=== PATIENT | male | born 1955 | race Caucasian/White ===

== ENCOUNTER 2016-06-18 11:06 | Emergency (ER) | payer OTHER ==
[~2016-06-18] VITALS: Ht 170.2 cm; Wt 95.7 kg
[~2016-06-18 11:06] MED LIST: ABL10 PO; AMLO-110 PO; ASPI81TA21 PO; CLC100X PO; CLON0.2T PO; CLON0.5T3 PO; CRG125 PO; CRS20 PO; DPKSR/500 PO; EFFSR75 PO; LACT12LO TOP; LSN20 PO; MULT-506 PO; NXM/40 PO; RANI150T2 PO; WLLXL300 PO
[2016-06-18 11:10] VITALS: BP 153/91; TEMP 37.1; Ht 170.2 cm; Wt 95.7 kg
[2016-06-18] MEDS ORDERED: SRQ100 PO (11:33)
[2016-06-18] MEDS ORDERED: CLC100 PO (11:33)
[2016-06-18] MEDS ORDERED: XYLOCAINE 1%/SOD BICARB 20 ML VIAL INFIL ONE (11:45)
--- NOTE | 2016-06-18 12:04 | DIAGNOSTIC IMAGING REPORT ---
CT HEAD WITHOUT CONTRAST (CT) CLINICAL HISTORY: Head pain status post trauma COMPARISON STUDY: No previous studies for comparison. TECHNIQUE: Axial CT of the brain is performed from the vertex to the skull base. IV contrast was not administered for this examination. CT DOSE: 1443.15 mGy.cm FINDINGS: No intra or extra-axial mass lesions are visualized. There is no CT evidence of acute cortical infarction. There is no evidence of midline shift. There is no acute hemorrhage. No calvarial fractures are visualized. There are minimal white matter hypodensities likely on a small vessel basis. There is mild ventricular prominence. There is a prominent cisterna magna. There is a slight orientation of the ventricles. One cannot exclude agenesis of the corpus callosum. There is moderate bilateral maxilla sinus mucosal thickening. There is sphenoid sinus mucosal thickening. There is ethmoid and frontal sinus mucosal thickening IMPRESSION: 1. Pansinus disease. 2. No acute intracranial findings. Electronically signed by: Abran Gordon M.D. 06/18/2016 12:02 PM Dictated Date/Time: 06/18/2016 12:00 PM
--- NOTE | 2016-06-18 12:10 | DIAGNOSTIC IMAGING REPORT ---
CT OF THE CERVICAL SPINE CLINICAL HISTORY: Neck pain status post trauma COMPARISON STUDY: No previous studies for comparison. CT DOSE: TECHNIQUE: CT scan of the cervical spine was performed from the skull base to the thoracic inlet. Images are reviewed in the axial, sagittal, and coronal planes. IV contrast was not administered for this examination. FINDINGS: There is paranasal sinus mucosal disease. There is no apical pneumothorax. The prevertebral soft tissues are normal. No fractures or traumatic subluxations are visualized. There are multilevel degenerative changes. There is minor anterior subluxation of C4 on C5 which is felt to be degenerative. There is moderate to marked disc space narrowing at the C5-6 and C6-7 levels. There are prominent anterior osteophytes. There is a partially visualized 12 mm T2 lytic focus. IMPRESSION: No evidence of acute fracture or traumatic subluxation. Electronically signed by: Abran Gordon M.D. 06/18/2016 12:09 PM Dictated Date/Time: 06/18/2016 12:06 PM
[2016-06-18 13:05] VITALS: PULSE 87; O2SAT 98
--- NOTE | 2016-06-18 13:05 | EMERGENCY ROOM VISIT NOTE ---
ED Visit Note First contact with patient: 11:22 Chief Complaint: Scalp Laceration History of Present Illness: This patient is a 60-year-old male who presents to the Emergency Department this afternoon for evaluation of their scalp laceration. Patient sustained the laceration while tripping and falling while exiting a van. They report a moderate amount of bleeding initially. They report no loss of consciousness. They deny any headache, visual disturbance, nausea, vomiting, or neck pain. They have tried nothing for the pain. Patient rates his current discomfort as an 8/10. Patient's Tetanus status is currently up-to-date. Medications: Reviewed and discussed with the patient. Allergies: Penicillins, terbinafine PMH: No pertinent past medical history. SHx: Patient is a 60-year-old male who [place]. ROS: All pertinent positive and negative review of systems are appropriately documented in the History of Present Illness. Physical Exam: VITAL SIGNS - Vital signs and nursing notes were reviewed. GENERAL - 60-year-old male appearing his stated age. Communicates well with provider and answers questions appropriately. SKIN - There is a 5.0 cm laceration noted to the LEFT parietal area of the scalp. The edges gape apart with traction. There is no active bleeding appreciated. No deep structures including vessels, musculature, or bony structures are appreciated. HEAD - Normocephalic. No Hobbs's Sign or Raccoon's Eyes. No depressed skull fractures palpable. EYES - PERRL with EOMI bilaterally. Without subconjunctival hemorrhage. Palpebral conjunctiva pink and moist with no injection. EARS - No deformities of external structures noted on gross examination bilaterally. No hemotympanum present. No tympanic perforation noted. Handle of malleus, umbo, cone of light, pars tensa/flaccid all easily visualized. NOSE - Midline and without cyanosis. No epistaxis or clear watery discharge noted. Septum midline without deviation. No septal hematoma noted. No overlying ecchymosis noted. MOUTH/OROPHARYNX - Without perioral cyanosis. Tongue midline with equal elevation of palate bilaterally. No blood noted in the oropharynx. No tonsillar hypertrophy, erythema, or exudates noted. No dental fractures noted. NECK - FROM assessed. No nuchal rigidity. No tenderness to palpation over the cervical spinous processes. No cervical paraspinal muscle tenderness noted. LUNGS - Chest wall symmetric without accessory muscle use, intercostals retractions, or central cyanosis. Normal vesicular breath sounds CTA B/L. No wheezes, rales, or rhonchi appreciated. CARDIAC - RRR with S1/S2. No murmur, rubs, or gallops appreciated. EXTREMITIES - No gross deformities noted of the extremities. +3/5 radial and dorsalis pedis pulses palpated throughout. FROM with no tremors, fasciculations , or clonus noted on PROM throughout. +5/5 strength noted in UE/LE bilaterally. NEUROLOGIC - Cranial nerves II through XII grossly intact. Sensory intact to light touch throughout. Patellar reflexes +2/4. Patient able to perform rapid alternating movements appropriately. Negative Pronator Drift. PSYCH - A&Ox3 and cooperates fully with examiner. Pt is very pleasant and interacts well with examiner. IMAGING: CT HEAD WITHOUT CONTRAST (CT) CLINICAL HISTORY: Head pain status post trauma COMPARISON STUDY: No previous studies for comparison. TECHNIQUE: Axial CT of the brain is performed from the vertex to the skull base. IV contrast was not administered for this examination. CT DOSE: 1443.15 mGy.cm FINDINGS: No intra or extra-axial mass lesions are visualized. There is no CT evidence of acute cortical infarction. There is no evidence of midline shift. There is no acute hemorrhage. No calvarial fractures are visualized. There are minimal white matter hypodensities likely on a small vessel basis. There is mild ventricular prominence. There is a prominent cisterna magna. There is a slight orientation of the ventricles. One cannot exclude agenesis of the corpus callosum. There is moderate bilateral maxilla sinus mucosal thickening. There is sphenoid sinus mucosal thickening. There is ethmoid and frontal sinus mucosal thickening IMPRESSION: 1. Pansinus disease. 2. No acute intracranial findings. CT OF THE CERVICAL SPINE CLINICAL HISTORY: Neck pain status post trauma COMPARISON STUDY: No previous studies for comparison. CT DOSE: TECHNIQUE: CT scan of the cervical spine was performed from the skull base to the thoracic inlet. Images are reviewed in the axial, sagittal, and coronal planes. IV contrast was not administered for this examination. FINDINGS: There is paranasal sinus mucosal disease. There is no apical pneumothorax. The prevertebral soft tissues are normal. No fractures or traumatic subluxations are visualized. There are multilevel degenerative changes. There is minor anterior subluxation of C4 on C5 which is felt to be degenerative. There is moderate to marked disc space narrowing at the C5-6 and C6-7 levels. There are prominent anterior osteophytes. There is a partially visualized 12 mm T2 lytic focus. IMPRESSION: No evidence of acute fracture or traumatic subluxation. ED Course: Patient was seen and evaluated by myself. CT of the head and cervical spine were obtained. Imaging results as above. Patient had no focal neurological deficits. Patient's exam is otherwise unremarkable. Patient reports no headaches , visual disturbances, nausea, vomiting, or over-lethargy. Costs and benefits of performing primary wound closure versus no repair were discussed with the patient who verbalizes understanding. Verbal consent was obtained prior to performing the procedure. 5 cc of 1% buffered lidocaine was used to anesthetize the scalp laceration. The wound was cleansed and prepped in the typical sterile fashion utilizing normal saline and Betadine. The wound was sterilely draped. Once proper anesthetization was established, the wound was further examined and demonstrated a full-thickness laceration without injury to the deep structures. The wound was copiously irrigated with normal saline and Betadine. The wound was closed using 7 marilee with the wound edges being well approximated. Patient tolerated the procedure well. No complications were met. The wound was cleansed and dressed with a Bacitracin dressing. Patient educated on worrisome symptoms for return visit to the Emergency Department. Patient discharged to home in good condition. Impression: Scalp Laceration, Fall Discharge Instructions: You have received 7 marilee on your scalp. These marilee are NOT dissolvable and WILL need to be removed by a health care provider in 10 days. You can return to the Emergency Department or contact your Primary Care Provider to have these marilee removed. Proper wound care is essential for adequate wound healing and infection prevention. You can shower and clean the wound with soap and water. Do scour over the wound, pat dry with a towel. Do not submerse the wound until the marilee have been removed. You can use an antibiotic ointment with a dressing over the wound for the next 3-4 days. After this time you may leave the wound dry and open to the air. If crust develops over the wound you can use a Q-tip to apply a 1:1 peroxide:water solution to clean the wound. Look for signs of infection of the wound including: increased pain, swelling, foul discharge, streaking, or increased temperature. If any of these are noticed you should return to the Emergency Department for further assessment and treatment. As with any laceration you may have received nerve damage to the surrounding tissues. This damage may or may not be permanent. For pain control, you can use the following [id number] medicines (if >12 yo): - Regular strength (325mg/tab) Tylenol (acetaminophen) 2 tabs every 4-6 hours as needed. Do not exceed 12 tablets in a 24 hour period. Avoid taking more than 4 grams (4000 mg) of Tylenol per day. This includes any other sources of acetaminophen you may take on a regular basis. - Regular strength (200 mg/tab) Advil (ibuprofen) 1-2 tabs every 4-6 hours as needed. Do not exceed a dose of 3200 mg per day. Return to the emergency department if your symptoms worsen despite treatment course outlined above. Problem List Medical Problems: (1) Chest pain Status: Resolved (2) Coronary artery disease Status: Chronic (3) GERD (gastroesophageal reflux disease) Status: Chronic (4) Laceration Status: Resolved (5) Myocardial infarction Status: Resolved Current/Historical Medications Scheduled Amlodipine (Norvasc), 5 MG PO DAILY Aripiprazole (Abilify), 10 MG PO QAM Aspirin Enteric Coated (Ecotrin Or Generic), 81 MG PO DAILY Bupropion HCl (Bupropion HCl Xl), 300 MG PO DAILY Carvedilol (Carvedilol), 12.5 MG PO BID Clonazepam (Klonopin), 0.25 MG PO AMHS Clonidine Hcl (Catapres), 0.2 MG PO BID Divalproex Sodium (Depakote Etended-Release), 1,500 MG PO HS Docusate Sodium (Docusate Sodium), 100 MG PO BID Esomeprazole Magnesium (Nexium), 40 MG PO QAM Lisinopril (Lisinopril), 20 MG PO DAILY Multivitamin (Multivitamin), 1 TAB PO DAILY Quetiapine Fumarate (Quetiapine Fumarate), 100 MG PO HS Ranitidine HCl (Ranitidine HCl), 150 MG PO BID Rosuvastatin Calcium (Crestor), 20 MG PO QPM Venlafaxine Hcl (Effexor Extended Rel), 75 MG PO QAM Allergies Coded Allergies: Terbinafine (Verified Allergy, Mild, 06/18/16) Penicillins (Verified Allergy, Unknown, fam hx of allergy, 06/18/16) Vital Signs Date Time Temp Pulse Resp B/P Pulse Ox O2 Delivery O2 Flow Rate FiO2 06/18/16 13:05 87 20 98 Room Air 06/18/16 11:10 37.1 85 18 153/91 96 Room Air Departure Information Impression Primary Impression: Laceration of scalp Additional Impression: Fall Dispostion Home / Self-Care Condition GOOD Referrals Tim Swenson, D.OAdriano (PCP) Patient Instructions ED Laceration Scalp Sutr Stap , [facility] Additional Instructions You have received 7 marilee on your scalp. These marilee are NOT dissolvable and WILL need to be removed by a health care provider in 10 days. You can return to the Emergency Department or contact your Primary Care Provider to have these marilee removed. Proper wound care is essential for adequate wound healing and infection prevention. You can shower and clean the wound with soap and water. Do scour over the wound, pat dry with a towel. Do not submerse the wound until the marilee have been removed. You can use an antibiotic ointment with a dressing over the wound for the next 3-4 days. After this time you may leave the wound dry and open to the air. If crust develops over the wound you can use a Q-tip to apply a 1:1 peroxide:water solution to clean the wound. Look for signs of infection of the wound including: increased pain, swelling, foul discharge, streaking, or increased temperature. If any of these are noticed you should return to the Emergency Department for further assessment and treatment. As with any laceration you may have received nerve damage to the surrounding tissues. This damage may or may not be permanent. For pain control, you can use the following [id number] medicines (if >12 yo): - Regular strength (325mg/tab) Tylenol (acetaminophen) 2 tabs every 4-6 hours as needed. Do not exceed 12 tablets in a 24 hour period. Avoid taking more than 4 grams (4000 mg) of Tylenol per day. This includes any other sources of acetaminophen you may take on a regular basis. - Regular strength (200 mg/tab) Advil (ibuprofen) 1-2 tabs every 4-6 hours as needed. Do not exceed a dose of 3200 mg per day. Return to the emergency department if your symptoms worsen despite treatment course outlined above. Problem Qualifiers Primary Impression: Laceration of scalp Encounter type: initial encounter Qualified Codes: S01.01XA - Laceration without foreign body of scalp, initial encounter Additional Impression: Fall Encounter type: initial encounter Qualified Codes: W19.XXXA - Unspecified fall, initial encounter
== END 2016-06-18 13:14 | disposition home or self-care (01) ==
LOC: C.EDB 11:07 → C.EDD 13:14
DX: S01.01XA Laceration without foreign body of scalp, initial encounter (principal); W19.XXXA Unspecified fall, initial encounter; I25.10 Atherosclerotic heart disease of native coronary artery without angina pectoris; K21.9 Gastro-esophageal reflux disease without esophagitis; I25.2 Old myocardial infarction; Z79.82 Long term (current) use of aspirin; Z79.899 Other long term (current) drug therapy; Z88.0 Allergy status to penicillin; Z88.8 Allergy status to other drugs, medicaments and biological substances

== ENCOUNTER 2016-06-27 14:17 | Emergency (ER) | payer OTHER ==
[~2016-06-27] VITALS: Ht 162.6 cm; Wt 95.8 kg
[~2016-06-27 14:17] MED LIST changes: +CLC100 PO; -CLC100X PO; -LACT12LO TOP; +SRQ100 PO
[2016-06-27 14:25] VITALS: BP 147/90; PULSE 88; TEMP 36.6; O2SAT 99; Ht 162.6 cm; Wt 95.8 kg
--- NOTE | 2016-06-27 14:48 | EMERGENCY ROOM VISIT NOTE ---
ED Visit Note First contact with patient: 14:33 CHIEF COMPLAINT: Staple removal Patient is a 60-year-old white male returns to the ED today accompanied by a snf staff for removal of marilee that were placed 9 days ago. There has been no swelling, redness, or drainage from the wound. The patient feels like the laceration is healing well. REVIEW OF SYSTEMS: Head: No headache, injury or neck pain. Skin: No rash, new lesions, or masses. General: No fever or chills, fatigue, loss of appetite , or significant recent weight gain or loss. PMH: Reviewed and unchanged from prior visit. SOCIAL HISTORY: Patient lives at home. PHYSICAL EXAM: Vital Signs: Reviewed Nurse's notes. There is a stapled wound on the left forehead with no signs of infection. There is no erythema, swelling , or tenderness. EMERGENCY DEPARTMENT COURSE: The marilee were removed without any difficulty and there was no separation of the wound edges. DIAGNOSIS: Healing laceration and staple removal DISCHARGE INSTRUCTIONS AND TREATMENT: Wash any remaining crusts off of the wound today and resume your normal activities. Problem List Medical Problems: (1) Chest pain Status: Resolved (2) Coronary artery disease Status: Chronic (3) GERD (gastroesophageal reflux disease) Status: Chronic (4) Laceration Status: Resolved (5) Myocardial infarction Status: Resolved Current/Historical Medications Scheduled Amlodipine (Norvasc), 5 MG PO DAILY Aripiprazole (Abilify), 10 MG PO QAM Aspirin Enteric Coated (Ecotrin Or Generic), 81 MG PO DAILY Bupropion HCl (Bupropion HCl Xl), 300 MG PO DAILY Carvedilol (Carvedilol), 12.5 MG PO BID Clonazepam (Klonopin), 0.25 MG PO AMHS Clonidine Hcl (Catapres), 0.2 MG PO BID Divalproex Sodium (Depakote Etended-Release), 1,500 MG PO HS Docusate Sodium (Docusate Sodium), 100 MG PO BID Esomeprazole Magnesium (Nexium), 40 MG PO QAM Lisinopril (Lisinopril), 20 MG PO DAILY Multivitamin (Multivitamin), 1 TAB PO DAILY Quetiapine Fumarate (Quetiapine Fumarate), 100 MG PO HS Ranitidine HCl (Ranitidine HCl), 150 MG PO BID Rosuvastatin Calcium (Crestor), 20 MG PO QPM Venlafaxine Hcl (Effexor Extended Rel), 75 MG PO QAM Allergies Coded Allergies: Terbinafine (Verified Allergy, Mild, 06/18/16) Penicillins (Verified Allergy, Unknown, fam hx of allergy, 06/18/16) Vital Signs Date Time Temp Pulse Resp B/P Pulse Ox O2 Delivery O2 Flow Rate FiO2 06/27/16 14:25 36.6 88 18 147/90 99 Room Air Departure Information Impression Primary Impression: Encounter for removal of marilee Referrals No Doctor, Assigned (PCP) Patient Instructions [facility]
== END 2016-06-27 14:52 | disposition home or self-care (01) ==
LOC: C.EDB 14:19 → C.EDD 14:52
DX: Z48.02 Encounter for removal of sutures (principal); I25.10 Atherosclerotic heart disease of native coronary artery without angina pectoris; K21.9 Gastro-esophageal reflux disease without esophagitis; I25.2 Old myocardial infarction; Z79.82 Long term (current) use of aspirin; Z88.0 Allergy status to penicillin

== ENCOUNTER 2016-10-14 15:14 | Emergency (ER) | payer OTHER ==
[~2016-10-14] VITALS: Ht 170.2 cm; Wt 91.0 kg
[2016-10-14 15:16] VITALS: Ht 170.2 cm; Wt 91.0 kg
[2016-10-14] MEDS ORDERED: CEFTRIAXONE SOD INJ 1 GM ADDVIAL IV STA (15:52)
[2016-10-14] MEDS ORDERED: CLINDAMYCIN HCL 150 MG CAP PO ONE (16:00)
[2016-10-14 16:24] LABS: HEMATOCRIT 38.1 % (42-52); MEAN CELL VOLUME 95.5 fL (80-100); MEAN CORPUSCULAR HEMOGLOBIN 32.1 pg (25-34); MEAN CORPUSCULAR HGB CONC 33.6 g/dl (32-36); PLATELET COUNT 142 K/uL (130-400); RED BLOOD COUNT 3.99 M/uL (4.7-6.1)
[2016-10-14 16:47] LABS: BUN/CREATININE RATIO 21.5 (10-20); CALCIUM 8.5 mg/dl (8.5-10.1); CREATININE 1.3 mg/dl (0.60-1.40); POTASSIUM 4.1 mmol/L (3.5-5.1)
[2016-10-14] MEDS ORDERED: CLIN300C2 PO (17:28)
--- NOTE | 2016-10-14 17:29 | EMERGENCY ROOM VISIT NOTE ---
History Report prepared by Kavon: Jabier Miranda Under the Supervision of: Dr. Tano Reaves D.O. First contact with patient: 15:26 Chief Complaint: KNEEPAIN Stated Complaint: KNEE SWELLING, FLUID, OFF BALANCE, CONFUSED History of Present Illness The patient is a 61 year old male who presents to the Emergency Room with complaints of worsening left knee pain starting a month ago. He rates his pain as an 8/10 in severity. The patient is accompanied by [employer] staff, which is where he resides. They report that the patient had broken his left leg a couple of years ago and has had a history of left knee swelling and pain. The staff reports that he follows up with his knee problems with his doctor and has had his knee drained multiple times in the past month. The staff states that when his knee has been drained, it has been a dark fluid. They report that he was given antibiotics for his knee swelling, but cannot remember the name of the antibiotics. The staff states that the patient's balance has been off recently causing him to fall in the tub recently and fall out of his chair today hitting his elbow. The patient reports that has been experiencing a high fever. The staff reports that they are unsure if the left knee worsened due to the tub incident since they did not witness his fall. They report that when they came on shift today, he only had a slight fever. They also state that he refuses to wrap, elevate, or ice his knee because it is uncomfortable and has been walking and putting pressure on his knee. They report that his leg has been discolored, swollen, warm, and worsening. The staff admits that the patient has an allergy to penicillin. Source of History: patient, caregiver Onset: a month ago Position: knee (left) Symptom Intensity: 8/10 Quality: other (swelling) Timing: worsening Associated Symptoms: + fevers Review of Systems See HPI for pertinent positives & negatives. A total of 10 systems reviewed and were otherwise negative. Past Medical & Surgical Medical Problems: (1) Chest pain (2) Coronary artery disease (3) GERD (gastroesophageal reflux disease) (4) Laceration (5) Myocardial infarction Family History Patient reports no known family medical history. Social History Smoking Status: Never Smoker Alcohol Use: none Drug Use: none Marital Status: single Housing Status: assisted living Occupation Status: disabled Current/Historical Medications Scheduled Amlodipine (Norvasc), 5 MG PO DAILY Aripiprazole (Abilify), 10 MG PO QAM Aspirin Enteric Coated (Ecotrin Or Generic), 81 MG PO DAILY Bupropion HCl (Bupropion HCl Xl), 300 MG PO DAILY Carvedilol (Carvedilol), 12.5 MG PO BID Clindamycin Hcl (Cleocin), 300 MG PO QID Clindamycin Hcl (Cleocin), 300 MG PO QID Clonazepam (Klonopin), 0.25 MG PO AMHS Clonidine Hcl (Catapres), 0.2 MG PO BID Divalproex Sodium (Depakote Etended-Release), 1,500 MG PO HS Docusate Sodium (Docusate Sodium), 100 MG PO BID Esomeprazole Magnesium (Nexium), 40 MG PO QAM Lisinopril (Lisinopril), 20 MG PO DAILY Multivitamin (Multivitamin), 1 TAB PO DAILY Quetiapine Fumarate (Quetiapine Fumarate), 100 MG PO HS Ranitidine HCl (Ranitidine HCl), 150 MG PO BID Rosuvastatin Calcium (Crestor), 20 MG PO QPM Venlafaxine Hcl (Effexor Extended Rel), 75 MG PO QAM Allergies Coded Allergies: Terbinafine (Verified Allergy, Mild, 10/14/16) Penicillins (Verified Allergy, Unknown, fam hx of allergy, 10/14/16) Physical Exam Vital Signs Date Time Temp Pulse Resp B/P (MAP) Pulse Ox O2 Delivery O2 Flow Rate FiO2 10/14/16 17:00 84 16 126/80 99 10/14/16 15:16 37.2 98 17 123/72 94 Room Air Physical Exam CONSTITUTIONAL/VITAL SIGNS: Reviewed / noted above. GENERAL: Non-toxic in appearance. INTEGUMENTARY: Warm, dry, and [place]. HEAD: Normocephalic. EYES: without scleral icterus or trauma. ENT/OROPHARYNX: clear and moist. LYMPHADENOPATHY/NECK: Is supple without lymphadenopathy or meningismus. RESPIRATORY: Lungs clear and equal. CARDIOVASCULAR: Regular rate and rhythm. GI/ABDOMEN: Soft and nontender. No organomegaly or pulsatile mass. No rebound or guarding. Normal bowel sounds. EXTREMITIES: Left anterior knee reveals swelling, erythema, and increased warmth. Other extremities are warm and well perfused. BACK: No CVA tenderness. NEUROLOGICAL: Intact without focal deficits. PSYCHIATRIC: normal affect. MUSCULOSKELETAL: Normally developed with good muscle tone. Medical Decision & Procedures Laboratory Results 10/14/16 16:00 10/14/16 16:00 Test 10/14/16 16:00 Red Blood Count 3.99 M/uL (4.7-6.1) Mean Corpuscular Volume 95.5 fL (80-100) Mean Corpuscular Hemoglobin 32.1 pg (25-34) Mean Corpuscular Hemoglobin Concent 33.6 g/dl (32-36) RDW Standard Deviation 46.7 fL (36.4-46.3) RDW Coefficient of Variation 13.4 % (11.5-14.5) Mean Platelet Volume 11.0 fL (7.4-10.4) Anion Gap 8.0 mmol/L (3-11) Est Creatinine Clear Calc Drug Dose 65.8 ml/min Estimated GFR () 69.2 Estimated GFR (Non- 59.7 BUN/Creatinine Ratio 21.5 (10-20) Calcium Level 8.5 mg/dl (8.5-10.1) Lyme Disease IgM Antibody NEG (NEG) Laboratory results as stated above per my review. Medications Administered Medications (Trade) Dose Ordered Sig/Kamryn Route Start Time Stop Time Status Last Admin Dose Admin Ceftriaxone Sodium (Rocephin Inj) 1 gm NOW STAT IV 10/14/16 15:52 10/14/16 15:54 DC 10/14/16 16:11 1 GM Clindamycin HCl (Cleocin Cap) 300 mg ONE ONCE PO 10/14/16 16:00 10/14/16 16:02 DC 10/14/16 16:12 300 MG ED Course 1530: Previous medical records were reviewed. The patient was evaluated in room C05. A complete history and physical examination was performed. 1552: Rocephin Injection 1 gram IV. 1600: Cleocin Cap 300 mg PO. 1743: On reevaluation, the patient is resting comfortably. I discussed the results and findings with the patient. He verbalized agreement of the treatment plan. He was discharged home. Medical Decision The differential diagnosis includes but is not limited to: etiologies such as cellulitis, abscess, MRSA infection, DVT, necrotizing fasciitis, dermatitis, drug eruption, as well as others were entertained. Medication Reconciliation: I attest that I have personally reviewed the patient' s current medication list. Blood pressure Screening: Patient was found to have normal blood pressure on screening and does not require follow-up. This is a 61-year-old male who presents to the ED with a chief complaint of left knee pain. The patient is a resident at [facility]. The patient has had problems with this knee in the past. He has had prepatellar bursitis and has required antibiotics in the past. His knee prepatellar bursa has required drainage by Dr. Flores in the past. His exam reveals diffuse erythema overlying the left knee with some swelling in the bursa is mild tenderness. Full range of motion. Mild discomfort with movement. It is increased warmth over the bursa. The patient was started on some IV antibiotics. He was given IV Rocephin and by mouth clindamycin. He is allergic to penicillin. The patient's symptoms are suggestive of a prepatellar bursitis. The bursa was not accessed due to the overlying erythema. This could be a traumatic bursitis but he has been on antibiotics for the same in the past there for the antibiotics have been initiated. The staff at the [facility] states that he spends a lot of time on his knees. CBC is unremarkable. PRP was normal. Lyme test was negative. The patient was given IV Rocephin and by mouth clindamycin. He will be discharged on clindamycin. Close follow-up with Dr. flores is recommended. Impression Primary Impression: Prepatellar bursitis Scribe Attestation The scribe's documentation has been prepared under my direction and personally reviewed by me in its entirety. I confirm that the note above accurately reflects all work, treatment, procedures, and medical decision making performed by me. Departure Information Dispostion Home / Self-Care Prescriptions Clindamycin Hcl (CLEOCIN) 300 Mg Cap 300 MG PO QID, #40 CAP Prov: Tano Reaves D.O. 10/14/16 Clindamycin Hcl (CLEOCIN) 300 Mg Cap 300 MG PO QID, #40 CAP Prov: Tano Reaves D.O. 10/14/16 Referrals Tim Swenson D.O. (PCP) Patient Instructions My [facility] Additional Instructions Take clindamycin as prescribed. Follow-up with Dr. Flores. Call tomorrow for appointment.
[2016-10-14 18:01] VITALS: BP 126/80; PULSE 84; TEMP 37.2; O2SAT 99
== END 2016-10-14 18:02 | disposition home or self-care (01) ==
LOC: C.EDB 15:16 → C.EDC 18:02
DX: M70.42 Prepatellar bursitis, left knee (principal); I25.10 Atherosclerotic heart disease of native coronary artery without angina pectoris; K21.9 Gastro-esophageal reflux disease without esophagitis; I25.2 Old myocardial infarction; Z79.82 Long term (current) use of aspirin

== ENCOUNTER 2017-02-24 01:23 | Emergency (ER) | payer OTHER ==
[~2017-02-24] VITALS: Ht 172.7 cm; Wt 99.7 kg
[~2017-02-24 01:23] MED LIST changes: +QUET-115 PO; -SRQ100 PO
[2017-02-24 01:31] VITALS: TEMP 36.8; Ht 172.7 cm; Wt 99.7 kg
[2017-02-24] MEDS ORDERED: LORAZEPAM 1 MG TAB PO STA (01:35)
[2017-02-24] MEDS ORDERED: LIDOCAINE/EPINEPH/TETRACAINE 1 EA SYR EXT STA (01:35)
[2017-02-24 03:16] VITALS: BP 183/99; PULSE 77; O2SAT 99
--- NOTE | 2017-02-24 06:20 | EMERGENCY ROOM VISIT NOTE ---
History First contact with patient: :29 Chief Complaint: FALL Stated Complaint: FALL/LACERATION History of Present Illness The patient is a 61 year old male who presents to the Emergency Room with complaints of left-sided scalp laceration that occurred about one hour ago. The patient has a history of MHMR and is currently under the care of [employer] [facility] The patient states that he got up to use the bathroom, fell, and struck his head. He did not lose consciousness. He is reportedly up-to-date on his tetanus. He does not have other complaints. He is accompanied by a caregiver. Review of Systems More than 10 systems were reviewed and otherwise negative with the exception of history of present illness. Past Medical/Surgical History Medical Problems: (1) Chest pain (2) Coronary artery disease (3) GERD (gastroesophageal reflux disease) (4) Laceration (5) Myocardial infarction Family History Patient reports no known family medical history. Social History Smoking Status: Never Smoker Alcohol Use: none Drug Use: none Marital Status: single Housing Status: assisted living Occupation Status: disabled Current/Historical Medications Scheduled Amlodipine (Norvasc), 5 MG PO DAILY Aripiprazole (Abilify), 10 MG PO QAM Aspirin Enteric Coated (Ecotrin Or Generic), 81 MG PO DAILY Bupropion HCl (Bupropion HCl Xl), 300 MG PO DAILY Carvedilol (Carvedilol), 12.5 MG PO BID Clonazepam (Klonopin), 0.25 MG PO AMHS Clonidine Hcl (Catapres), 0.2 MG PO BID Divalproex Sodium (Depakote Etended-Release), 1,500 MG PO HS Docusate Sodium (Docusate Sodium), 100 MG PO BID Esomeprazole Magnesium (Nexium), 40 MG PO QAM Lisinopril (Lisinopril), 20 MG PO DAILY Multivitamin (Multivitamin), 1 TAB PO DAILY Quetiapine Fumarate (Quetiapine Fumarate), 100 MG PO HS Ranitidine HCl (Ranitidine HCl), 150 MG PO BID Rosuvastatin Calcium (Crestor), 20 MG PO QPM Venlafaxine Hcl (Effexor Extended Rel), 75 MG PO QAM Physical Exam Vital Signs Date Time Temp Pulse Resp B/P (MAP) Pulse Ox O2 Delivery O2 Flow Rate FiO2 02/24/17 03:16 77 18 183/99 99 02/24/17 02:07 80 18 160/81 100 Room Air 02/24/17 01:31 36.8 87 18 177/85 100 Room Air Physical Exam VITALS: Vitals are noted on the nurse's note and reviewed by myself. Vital signs stable. GENERAL: Anxious appearing white male, who is in no acute distress and resting comfortably. Patient is cooperative with the examination. HEAD: There is a 5.5 cm fairly linear vertical laceration over the left side forehead into the left scalp. This does gape and will require repair. No granados sign or raccoon eyes. EARS: External ear normal. External auditory canals clear, tympanic membranes pearly amaro without erythema or effusion bilaterally. EYES: Pupils equal round and reactive to light and accommodation. Conjunctivae without injection, sclerae without icterus. Extraocular movements intact. NECK: Supple without nuchal rigidity. No lymphadenopathy. No thyromegaly. Cervical spine is nontender. HEART: Regular rate and rhythm without murmurs gallops or rubs. LUNGS: Clear to auscultation bilaterally without wheezes, rales or rhonchi. No retractions or accessory muscle use. Medical Decision & Procedures ER Provider Diagnostic Interpretation: Preliminary Findings Only See Final Report For Complete Findings CT HEAD: Comparison: None Impression: No acute intracranial hemorrhage, territorial infarct, mass, midline shift or extra-axial fluid collection Left frontal subcutaneous swelling with no underlying fracture Comment: Ventricles are enlarged, presumably due to greater than age-related atrophy No midline shift Left posterior fossa geena-cisterna magna versus arachnoid cyst. Sinuses are clear Left frontal subcutaneous swelling. No underlying calvarial fracture Medications Administered Medications (Trade) Dose Ordered Sig/Kamryn Route Start Time Stop Time Status Last Admin Dose Admin Tetracaine/ Epinephrine/ Lidocaine (L.e.t. Gel 4%/ 1:100/0.5%) 1 ea NOW STAT EXT 02/24/17 01:35 02/24/17 01:36 DC 02/24/17 01:41 1 EA Lorazepam (Ativan Tab) 1 mg NOW STAT PO 02/24/17 01:35 02/24/17 01:36 DC 02/24/17 01:41 1 MG Procedure Laceration repair. Patient elects to have their laceration repaired. Verbal consent was obtained to perform the procedure. There is an abundance of materials available for the procedure. Patient is non-allergic to latex. Using sterile technique the wound was cleaned with Betadine. The area was sterilely draped. LET gel was used to anesthetize the scalp laceration. Once the patient was anesthetized, the wound was copiously irrigated under pressure with sterile saline. The wound was explored and there were no deep structures injured such as tendons, bone, or significant blood vessels. The laceration was repaired using 2 simple interrupted 5-0 nylon sutures and 6 marilee with the wound edges being well approximated. Hemostasis was achieved. The area was cleaned with sterile saline and dressed with bacitracin ointment and bandage. Patient tolerated the procedure well without complications. Blood loss was negligible. ED Course Physical exam and history were performed. Nursing notes, EMR, and Medication List were personally reviewed. Patient appears to have fallen and suffered injury to his head as above. He appears to need stitches, and became very anxious with this. I elected to give him oral Ativan and begin using let gel for anesthesia. CT scan of the head was performed does not show significant acute findings other than the laceration. The patient was very anxious throughout his suture repair, and did not wish to have this performed. I was able to close the most inferior laceration with simple interrupted sutures before the patient became uncooperative. I was able to quickly finished the repair utilizing marilee. Overall the patient returned to his comfortable baseline after the procedure was completed. He appears well for discharge home and was given instructions as below. The chart was completed utilizing [employer] Voice Recognition Software. Grammatical errors, random word insertions, pronoun errors, and incomplete sentences are an occasional consequence of this system due to software limitations, ambient noise, and hardware issues. Any formal questions or concerns about the content, text, or information contained within the body of this dictation should be directly addressed to the provider for clarification. . Medical Decision Differential diagnosis: Etiologies such as concussion, contusion, fracture, subdural hematoma, epidural hematoma, intraparenchymal hemorrhage, as well as other traumatic pathologies were entertained. Blood Pressure Screening Blood pressure disposition: Elevated BP felt to be situational, Referred to PCP Impression Primary Impression: Fall Additional Impression: Laceration of scalp Departure Information Dispostion Home / Self-Care Condition GOOD Forms HOME CARE DOCUMENTATION FORM, IMPORTANT VISIT INFORMATION Patient Instructions [facility] Additional Instructions You were seen and evaluated today on an emergency basis only. This is not a substitute for, or an effort to provide, complete comprehensive medical care. It is not possible to recognize and treat all injuries or illnesses in a single emergency department visit. For this reason it is recommended that you followup with your primary care physician next week for ongoing care and evaluation. Keep wound clean and dry. Do not allow any crusting or dried blood to accumulate on sutures/marilee. If this occurs, use a mild soap/water on a Q-tip to clean the wound. Do not use Peroxide to clean the wound as this can delay healing Use an antibiotic ointment like Bacitracin for 3-4 days, then let wound dry. You may bathe and shower as normal, but DO NOT SOAK the wound. Suture/staple removal in about 10 days with your Family Doctor or in the ER. Return sooner for any signs of infection, increasing redness, swelling, or drainage. You are welcome to return to the emergency department anytime with new, worsening, or concerning symptoms. Problem Qualifiers
--- NOTE | 2017-02-24 06:33 | DIAGNOSTIC IMAGING REPORT ---
CT HEAD WITHOUT CONTRAST (CT) CLINICAL HISTORY: Head pain status post trauma. COMPARISON STUDY: 06/18/2016 TECHNIQUE: Axial CT of the brain is performed from the vertex to the skull base. IV contrast was not administered for this examination. A dose lowering technique was utilized adhering to the principles of ALARA. CT DOSE: 1228.53 mGy.cm FINDINGS: No intra or extra-axial mass lesions are visualized. There is no CT evidence of acute cortical infarction. There is no evidence of midline shift. There is no acute hemorrhage. No calvarial fractures are visualized. There are patchy white matter hypodensities likely on a small vessel basis. There is a prominent cisterna magna. The ventricles are somewhat prominent with a somewhat high orientation. Agenesis of the corpus callosum cannot be excluded. There is a left frontal scalp laceration. There is no evidence of acute sinusitis IMPRESSION: No acute intracranial findings Electronically signed by: Abran Gordon M.D. 02/24/2017 6:32 AM Dictated Date/Time: 02/24/2017 6:29 AM
== END 2017-02-24 03:17 | disposition home or self-care (01) ==
LOC: EDBD 01:23 → C.EDB 01:26
DX: S01.01XA Laceration without foreign body of scalp, initial encounter (principal); W19.XXXA Unspecified fall, initial encounter; Y92.129 Unspecified place in nursing home as the place of occurrence of the external cause; I25.10 Atherosclerotic heart disease of native coronary artery without angina pectoris; K21.9 Gastro-esophageal reflux disease without esophagitis; I25.2 Old myocardial infarction; Z79.82 Long term (current) use of aspirin; Z79.899 Other long term (current) drug therapy

== ENCOUNTER 2019-10-30 19:47 | Inpatient (IN) ==
[2019-10-30] MEDS ORDERED: SODIUM CHLORIDE 0.9% 1000ML 2,000 ML IV ONE (20:11)
[2019-10-30 20:20] LABS: Basophils # (auto) 0.01 K/uL (0-0.2); Basophils % (auto) 0.1 %; Eosinophils # (auto) 0.03 K/uL (0-0.5); Eosinophils % (auto) 0.2 %; Hematocrit (blood only) 38.5 % (42-52); Hemoglobin 13.8 g/dL (14.0-18.0); Immature Granulocytes # (auto) 0.11 K/uL (0.00-0.02); Immature Granulocytes % (auto) 0.7 %; Lymphocytes # (auto) 1.09 K/uL (1.2-3.4); Lymphocytes % (auto) 7.3 %; Mean Corpuscular Hgb Conc 35.8 g/dL (32-36); Mean Corpuscular Volume 94.8 fL (80-100); Mean Platelet Volume 11.1 fL (7.4-10.4); Monocytes # (auto) 1.16 K/uL (0.11-0.59); Monocytes % (auto) 7.7 %; Neutrophils # (auto) 12.63 K/uL (1.4-6.5); Platelet Count 126 K/uL (130-400); RDW Coefficient of Variation 13.7 % (11.5-14.5); RDW Standard Deviation 47.5 fL (36.4-46.3); Red Blood Count 4.06 M/uL (4.7-6.1); White Blood Count 15.03 K/uL (4.8-10.8)
[2019-10-30] MEDS ORDERED: HALOPERIDOL LACTATE 5 MG/ML 1 ML VIAL IM STA (20:20)
[2019-10-30] MEDS ORDERED: LORazepam 2 MG/ML VIAL (IM USE) IM STA (20:20)
[2019-10-30] MEDS ORDERED: cefTRIAXone SODIUM 1,000 MG/50 ML BAG IV STA (20:32)
--- NOTE | 2019-10-30 20:32 | Emergency Department Note ---
Impression & Plan Sepsis ED Provider Note NAME: GABO RDZ AGE: 64 SEX: M : 1955 ARRIVES VIA: Ambulance INFORMANT: Patient ED PROVIDER(S): Wicho Rivero DO CHIEF COMPLAINT: fever and shaking HPI:Patient is a 64-year-old male from [place] who presents the ER with a past medical history of CHF, intermittent explosive disorder, anxiety and aspiration pneumonia for a fever. His fever started earlier today. He has had intermittent diffuse shaking. Caretakers note he has had no complaints with the exception of some abdominal pain. He denies any head pain or neck pain. No sore throat or ear pain. No chest pain or shortness of breath. Carbonation Equipment Operator de nies any new cough. He does admit to belly pain but cannot localize it. No pain with urination. No open wounds or sores. History is fairly limited secondary to mentation. No exposure to anyone with known coronavirus. He was with his family yesterday and [facility]. Carbonation Equipment Operator is unsure if josé miguel feels has had any previous COVID patients. ROS: See above HPI for pertinent positives & negatives. A total of 10 systems reviewed and were otherwise negative. PAST MEDICAL HISTORY:See Below PAST SURGICAL HISTORY:See Below FAMILY HISTORY:See Below SOCIAL HISTORY:See Below HOME MEDICATIONS:See Below ALLERGIES:See Below VITALS:See Below PHYSICAL EXAMINATION: GENERAL: Sitting up in bed, alert, disheveled, yelling, hitting staff EYE EXAM: normal conjunctiva. OROPHARYNX: mucous membranes are dry NECK: supple, no nuchal rigidity, no adenopathy, non-tender LUNGS: Coarse at the bases. Normal chest wall mechanics HEART: Tacky, S1 normal and S2 normal ABDOMEN: abdomen soft, non-tender, normo-active bowel sounds, no masses, no rebound or guarding. BACK: Back is symmetrical on inspection and there is no deformity, no midline tenderness, no CVA tenderness. SKIN: no rashes and no bruising UPPER EXTREMITIES: upper extremities are grossly normal. LOWER EXTREMITIES: No pitting edema. NEURO EXAM: Awake alert not following commands yelling and intermittently hitting staff. Nonfocal. MEDICAL DECISION MAKING: Patient is a 62-year-old male who presents the ER for fevers and rigors. IV was established blood work was obtained. Patient was extremely agitated throughout part of his stay and did delay treatment. He had several of the nursing staff. Consequently he was given initially IM Haldol and Ativan. He was redosed with IV Haldol and Ativan and did become a little bit sedated. Vitals were remarkable for fever and tachycardia. Labs show leukocytosis of 15,000. No significant anemia. INR was unremarkable. BMP was unremarkable. LFTs were el evated at 140 and 150 consistent with previous. Troponin was negative. Procalcitonin was normal. UA is negative. Valproic was normal. Chest x-ray without any focal infiltrate. CT abdomen pelvis showed no acute pathology. Patient was covered with broad-spectrum antibiotics given 2 L IV fluids. Patient was on airborne precautions throughout his stay in the ER due to the fever of unknown source. Triage Nursing notes reviewed. Prior medical records reviewed Vital Signs: reviewed and remarkable for febrile and tachycardic Differential diagnosis: Differential diagnosis includes etiologies such as sepsis, UTI, pneumonia, metabolic, electrolyte abnormalities, cardiac sources, intracerebral event, toxicologic, neurological, as well as others were entertained. ER treatment provided: See below Diagnostics interpreted by me: ECG: Sinus tachycardia rate of 110 Normal axis Septal Q waves No PVCs Normal QTC Cardiac Monitoring: An order was placed for continuous cardiac monitoring. The monitor shows a rate of 118 with sinus rhythm. Laboratory studies: As stated above and show below. Imaging studies: CT abdomen pelvis shows no acute pathology per stat read. On my review I did review the bases of the lungs and did appear to be fairly consistent with previous. Portable AP upright 1 view of the chest shows no focal infiltrate or pneumothorax. Consultation(s): none ED COURSE: Procedures: none Critical Care: I have personally spent 45 minutes of critical care time in the direct management of this patient. This includes bedside care, interpretation of diagnostic studies, and testing, discussion with consultants, patient, and family members, and other required patient management activities. This 45 minutes is in excess of all separately billable procedures. Past Med/Surg History Social History Preferred Language: Kiswahili Communication Ability: Impaired Knowledge Management Consultant Required: No Beliefs That Will Affect Care: None marital status: Single Current Living Situation: Personal Care Facility Current Living Situation Comment: [facility] Feels Safe at Home: Yes Smoking Status: Never smoker Hx Alcohol Use: No Hx Substance Use: No Allergies Allergies Allergy/AdvReac Type Severity Reaction Status Date / Time terbinafine Allergy Mild Unknown Verified 10/30/19 21:11 Penicillins Allergy Unknown fam hx of Verified 10/30/19 21:11 allergy Home Meds Home Medications Medication Instructions Recorded Confirmed aspirin 81 mg PO QAM 02/01/18 10/30/19 carvedilol 12.5 mg PO BID 02/01/18 10/30/19 clonidine HCl 0.2 mg PO BID 02/01/18 10/30/19 lisinopril 20 mg PO QAM 02/01/18 10/30/19 multivitamin [Multiple Vitamins] 1 tab PO QAM 02/01/18 10/30/19 bupropion HCl 100 mg PO TID 09/21/18 10/30/19 sennosides [senna] 8.6 mg PO BID 09/21/18 10/30/19 clonazepam 0.25 mg PO BID 09/30/18 10/30/19 divalproex 500 mg PO TIDM 09/30/18 10/30/19 amlodipine 5 mg PO QAM 06/17/19 10/30/19 aripiprazole 15 mg PO QAM 06/17/19 10/30/19 furosemide 20 mg PO QAM 06/17/19 10/30/19 hydrocortisone [Proctozone-HC] 1 applic OK BID PRN 06/17/19 10/30/19 iron,carbonyl-vitamin C [Vitron-C] 1 tab PO 3XWK 06/17/19 10/30/19 levothyroxine 25 mcg PO QAM 06/17/19 10/30/19 oxymetazoline [Tali Leung 2 spray INTRANASAL Q12H PRN 06/17/19 10/30/19 Lasting] pantoprazole 40 mg PO QAM 06/17/19 10/30/19 polyethylene glycol 3350 17 g PO DAILY PRN 06/17/19 10/30/19 potassium chloride 10 meq PO Q2D 06/17/19 10/30/19 quetiapine 100 mg PO HS 06/17/19 10/30/19 sesame oil 1 ea MISCELLANEOUS UD 06/17/19 10/30/19 sodium chloride [Saline Mist] 1 spray INTRANASAL DAILY PRN 06/17/19 10/30/19 white petrolatum [Vaseline] 1 applic TOPICAL UD 06/17/19 10/30/19 venlafaxine 37.5 mg PO DAILY 09/18/19 10/30/19 venlafaxine [Effexor XR] 75 mg PO DAILY 10/28/19 10/30/19 Results & Data (ED) Vital Signs Vital Signs - 24 hr 10/30/19 20:23 10/30/19 20:55 10/30/19 21:00 Temperature 39.4 C H Temperature Source Oral Pulse Rate 116 H 113 H 117 H Pulse Rate from SpO2 Sensor Respiratory Rate 20 21 30 H Respiratory Effort / Characteristics Non-Labored Respiratory Depth Normal Blood Pressure 183/107 H Blood Pressure Mean 132 Pulse Oximetry 96 Oxygen Delivery Method Room Air Sepsis Recent Fever Within 48 Hours Yes Sepsis New/Unexplained Change in Mental Status No Sepsis Action Taken by Nursing Physician Notified 10/30/19 21:16 10/30/19 21:30 10/30/19 21:31 Temperature Temperature Source Pulse Rate 110 H 110 H Pulse Rate from SpO2 Sensor 133 H 111 H Respiratory Rate 28 H 31 H Respiratory Effort / Characteristics Respiratory Depth Blood Pressure 182/81 H Blood Pressure Mean 125 Pulse Oximetry 97 98 96 Oxygen Delivery Method Room Air Sepsis Recent Fever Within 48 Hours Sepsis New/Unexplained Change in Mental Status Sepsis Action Taken by Nursing 10/30/19 21:45 10/30/19 22:00 10/30/19 22:16 Temperature Temperature Source Pulse Rate 114 H 112 H 114 H Pulse Rate from SpO2 Sensor Respiratory Rate 25 H 23 22 Respiratory Effort / Characteristics Respiratory Depth Blood Pressure 209/119 H 189/98 H Blood Pressure Mean 123 124 Pulse Oximetry Oxygen Delivery Method Sepsis Recent Fever Within 48 Hours Sepsis New/Unexplained Change in Mental Status Sepsis Action Taken by Nursing 10/30/19 22:17 10/30/19 22:30 10/30/19 22:57 Temperature Temperature Source Pulse Rate 112 H 112 H 109 H Pulse Rate from SpO2 Sensor Respiratory Rate 22 24 23 Respiratory Effort / Characteristics Respiratory Depth Blood Pressure 187/92 H Blood Pressure Mean 107 Pulse Oximetry Oxygen Delivery Method Sepsis Recent Fever Within 48 Hours Sepsis New/Unexplained Change in Mental Status Sepsis Action Taken by Nursing 10/30/19 23:00 10/30/19 23:01 10/30/19 23:15 Temperature Temperature Source Pulse Rate 110 H 109 H 108 H Pulse Rate from SpO2 Sensor Respiratory Rate 21 21 23 Respiratory Effort / Characteristics Respiratory Depth Blood Pressure 131/90 115/100 Blood Pressure Mean 102 110 Pulse Oximetry Oxygen Delivery Method Sepsis Recent Fever Within 48 Hours Sepsis New/Unexplained Change in Mental Status Sepsis Action Taken by Nursing 10/30/19 23:16 10/30/19 23:30 10/30/19 23:31 Temperature Temperature Source Pulse Rate 108 H 105 H 104 H Pulse Rate from SpO2 Sensor Respiratory Rate 26 H 25 H 22 Respiratory Effort / Characteristics Respiratory Depth Blood Pressure 168/89 H Blood Pressure Mean 109 Pulse Oximetry Oxygen Delivery Method Sepsis Recent Fever Within 48 Hours Sepsis New/Unexplained Change in Mental Status Sepsis Action Taken by Nursing Laboratory Data Result diagrams: 10/30/19 20:10 10/30/19 20:10 Lab Results 10/30/19 10/30/19 10/30/19 Range/Units 20:10 20:10 20:10 WBC 15.03 H (4.8-10.8) K/uL RBC 4.06 L (4.7-6.1) M/uL Hgb 13.8 L (14.0-18.0) g/dL Hct 38.5 L (42-52) % MCV 94.8 (80-100) fL MCH 34.0 (25-34) pg MCHC 35.8 (32-36) g/dL RDW Std Deviation 47.5 H (36.4-46.3) fL RDW Coeff of Josiah 13.7 (11.5-14.5) % Plt Count 126 L (130-400) K/uL MPV 11.1 H (7.4-10.4) fL Immature Gran % (Auto) 0.7 % Neut % (Auto) 84.0 % Lymph % (Auto) 7.3 % Miller % (Auto) 7.7 % Eos % (Auto) 0.2 % Baso % (Auto) 0.1 % Neut # (Auto) 12.63 H (1.4-6.5) K/uL Lymph # (Auto) 1.09 L (1.2-3.4) K/uL Miller # (Auto) 1.16 H (0.11-0.59) K/uL Eos # (Auto) 0.03 (0-0.5) K/uL Baso # (Auto) 0.01 (0-0.2) K/uL Immature Gran # (Auto) 0.11 H (0.00-0.02) K/uL PT (9.0-12.0) Seconds INR (0.9-1.1) APTT (21.0-31.0) Seconds PTT Ratio Sodium 134 L (136-145) mmol/L Potassium 4.5 (3.5-5.1) mmol/L Chloride 103 (98-107) mmol/L Carbon Dioxide 22 (21-32) mmol/L Anion Gap 9.0 (3-11) BUN 25 H (7-18) mg/dl Creatinine 1.29 (0.6-1.4) mg/dl Est Cr Clr Drug Dosing 70.5 ml/min Est GFR ( Amer) 68.4 Est GFR (Non-Af Amer) 59.0 BUN/Creatinine Ratio 19.5 (10-20) Glucose 168 H (70-99) mg/dl Lactate (0.4-2.0) mmol/L Calcium 9.0 (8.5-10.1) mg/dl Magnesium 1.9 (1.8-2.4) mg/dl Total Bilirubin 0.6 (0.2-1) mg/dl AST 140 H (15-37) U/L ALT 153 H (12-78) U/L Alkaline Phosphatase 112 (45-117) U/L Troponin I < 0.015 (0-0.045) ng/ml Total Protein 8.4 H (6.4-8.2) gm/dl Albumin 3.1 L (3.4-5.0) gm/dl Globulin 5.3 H (2.5-4.0) gm/dl Albumin/Globulin Ratio 0.6 L (0.9-2) Procalcitonin (0-0.5) ng/ml Urine Color Urine Appearance (Clear) Urine pH (4.5-7.5) Ur Specific [place] (1.000-1.030) Urine Protein (Negative) Urine Glucose (UA) (Negative) Urine Ketones (Negative) Urine Blood (Negative) Urine Nitrite (Negative) Urine Bilirubin (Negative) Urine Urobilinogen (Negative) Ur Leukocyte Esterase (Negative) Urine WBC (Auto) (0-5) /hpf Urine RBC (Auto) (0-4) /hpf U Hyaline Cast (Auto) (0-5) /lpf U Epithel Cells (Auto) (0-5) /lpf Urine Bacteria (Auto) (Negative) Valproic Acid 68 (50-100) mcg/ml 10/30/19 10/30/19 10/30/19 Range/Units 20:10 21:00 21:11 WBC (4.8-10.8) K/uL RBC (4.7-6.1) M/uL Hgb (14.0-18.0) g/dL Hct (42-52) % MCV (80-100) fL MCH (25-34) pg MCHC (32-36) g/dL RDW Std Deviation (36.4-46.3) fL RDW Coeff of Josiah (11.5-14.5) % Plt Count (130-400) K/uL MPV (7.4-10.4) fL Immature Gran % (Auto) % Neut % (Auto) % Lymph % (Auto) % Miller % (Auto) % Eos % (Auto) % Baso % (Auto) % Neut # (Auto) (1.4-6.5) K/uL Lymph # (Auto) (1.2-3.4) K/uL Miller # (Auto) (0.11-0.59) K/uL Eos # (Auto) (0-0.5) K/uL Baso # (Auto) (0-0.2) K/uL Immature Gran # (Auto) (0.00-0.02) K/uL PT 11.4 (9.0-12.0) Seconds INR 1.1 (0.9-1.1) APTT 26.7 (21.0-31.0) Seconds PTT Ratio 1.0 Sodium (136-145) mmol/L Potassium (3.5-5.1) mmol/L Chloride (98-107) mmol/L Carbon Dioxide (21-32) mmol/L Anion Gap (3-11) BUN (7-18) mg/dl Creatinine (0.6-1.4) mg/dl Est Cr Clr Drug Dosing ml/min Est GFR ( Amer) Est GFR (Non-Af Amer) BUN/Creatinine Ratio (10-20) Glucose (70-99) mg/dl Lactate (0.4-2.0) mmol/L Calcium (8.5-10.1) mg/dl Magnesium (1.8-2.4) mg/dl Total Bilirubin (0.2-1) mg/dl AST (15-37) U/L ALT (12-78) U/L Alkaline Phosphatase (45-117) U/L Troponin I (0-0.045) ng/ml Total Protein (6.4-8.2) gm/dl Albumin (3.4-5.0) gm/dl Globulin (2.5-4.0) gm/dl Albumin/Globulin Ratio (0.9-2) Procalcitonin 0.23 (0-0.5) ng/ml Urine Color Dark Yellow Urine Appearance Clear (Clear) Urine pH 6.5 (4.5-7.5) Ur Specific [place] 1.028 (1.000-1.030) Urine Protein 2+ H (Negative) Urine Glucose (UA) Trace H (Negative) Urine Ketones Trace H (Negative) Urine Blood Negative (Negative) Urine Nitrite Negative (Negative) Urine Bilirubin Negative (Negative) Urine Urobilinogen Positive H (Negative) Ur Leukocyte Esterase Negative (Negative) Urine WBC (Auto) 1-5 (0-5) /hpf Urine RBC (Auto) 0-4 (0-4) /hpf U Hyaline Cast (Auto) 1-5 (0-5) /lpf U Epithel Cells (Auto) 10-20 H (0-5) /lpf Urine Bacteria (Auto) Negative (Negative) Valproic Acid (50-100) mcg/ml 10/30/19 Range/Units 21:11 WBC (4.8-10.8) K/uL RBC (4.7-6.1) M/uL Hgb (14.0-18.0) g/dL Hct (42-52) % MCV (80-100) fL MCH (25-34) pg MCHC (32-36) g/dL RDW Std Deviation (36.4-46.3) fL RDW Coeff of Josiah (11.5-14.5) % Plt Count (130-400) K/uL MPV (7.4-10.4) fL Immature Gran % (Auto) % Neut % (Auto) % Lymph % (Auto) % Miller % (Auto) % Eos % (Auto) % Baso % (Auto) % Neut # (Auto) (1.4-6.5) K/uL Lymph # (Auto) (1.2-3.4) K/uL Miller # (Auto) (0.11-0.59) K/uL Eos # (Auto) (0-0.5) K/uL Baso # (Auto) (0-0.2) K/uL Immature Gran # (Auto) (0.00-0.02) K/uL PT (9.0-12.0) Seconds INR (0.9-1.1) APTT (21.0-31.0) Seconds PTT Ratio Sodium (136-145) mmol/L Potassium (3.5-5.1) mmol/L Chloride (98-107) mmol/L Carbon Dioxide (21-32) mmol/L Anion Gap (3-11) BUN (7-18) mg/dl Creatinine (0.6-1.4) mg/dl Est Cr Clr Drug Dosing ml/min Est GFR ( Amer) Est GFR (Non-Af Amer) BUN/Creatinine Ratio (10-20) Glucose (70-99) mg/dl Lactate 2.9 H* (0.4-2.0) mmol/L Calcium (8.5-10.1) mg/dl Magnesium (1.8-2.4) mg/dl Total Bilirubin (0.2-1) mg/dl AST (15-37) U/L ALT (12-78) U/L Alkaline Phosphatase (45-117) U/L Troponin I (0-0.045) ng/ml Total Protein (6.4-8.2) gm/dl Albumin (3.4-5.0) gm/dl Globulin (2.5-4.0) gm/dl Albumin/Globulin Ratio (0.9-2) Procalcitonin (0-0.5) ng/ml Urine Color Urine Appearance (Clear) Urine pH (4.5-7.5) Ur Specific [place] (1.000-1.030) Urine Protein (Negative) Urine Glucose (UA) (Negative) Urine Ketones (Negative) Urine Blood (Negative) Urine Nitrite (Negative) Urine Bilirubin (Negative) Urine Urobilinogen (Negative) Ur Leukocyte Esterase (Negative) Urine WBC (Auto) (0-5) /hpf Urine RBC (Auto) (0-4) /hpf U Hyaline Cast (Auto) (0-5) /lpf U Epithel Cells (Auto) (0-5) /lpf Urine Bacteria (Auto) (Negative) Valproic Acid (50-100) mcg/ml Administered Medications Ioversol (Optiray 320 100ml) 92 ml IV ONCE PRN PRN Reason: Interaction Checking Stop: 11/03/19 22:51 Last Admin: 10/30/19 22:52 Dose: 92 ml Documented by: [id number] Discontinued Medications Acetaminophen (Tylenol) 1,000 mg PO NOW STA Stop: 10/30/19 20:43 Last Admin: 10/30/19 22:59 Dose: Not Given Documented by: [id number] Haloperidol Lactate (Haldol) 5 mg IM NOW STA Stop: 10/30/19 20:21 Last Admin: 10/30/19 20:54 Dose: 5 mg Documented by: [id number] Haloperidol Lactate (Haldol) 5 mg IV NOW STA Stop: 10/30/19 22:00 Last Admin: 10/30/19 22:09 Dose: 5 mg Documented by: [id number] Sodium Chloride (Nss 1000ml) 2,000 mls @ 999 mls/hr IV .Q2H1M ONE Stop: 10/30/19 22:11 Last Admin: 10/30/19 21:29 Dose: 999 mls/hr Documented by: [id number] Ceftriaxone Sodium (Rocephin) 1,000 mg in 50 mls @ 100 mls/hr IV NOW STA Stop: 10/30/19 21:01 Last Infusion: 10/30/19 23:23 Dose: 0 mls/hr Documented by: [id number] Admin: 10/30/19 21:29 Dose: 100 mls/hr Documented by: [id number] Acetaminophen (Ofirmev) 1,000 mg in 100 mls @ 400 mls/hr IV NOW STA Stop: 10/30/19 21:51 Last Infusion: 10/30/19 23:23 Dose: 0 mls/hr Documented by: [id number] Admin: 10/30/19 22:14 Dose: 400 mls/hr Documented by: [id number] Lorazepam (Ativan) 1 mg in 2 mls @ 2 mls/min IV NOW STA Stop: 10/30/19 22:00 Last Admin: 10/30/19 22:09 Dose: 2 mls/min Documented by: [id number] Lorazepam (Ativan) 1 mg IM NOW STA Stop: 10/30/19 20:21 Last Admin: 10/30/19 20:54 Dose: 1 mg Documented by: [id number] Discharge Plan Visit Data Chief Complaint: Fever ED Provider: Wicho Rivero Discharge Problem: Sepsis Forms Stand Alone Forms: [facility] Prescriptions Prescriptions: No Action multivitamin [Multiple Vitamins] Tablet 1 tab PO QAM RF: 0 carvedilol 12.5 mg tablet 12.5 mg PO BID RF: 0 lisinopril 20 mg tablet 20 mg PO QAM RF: 0 aspirin 81 mg Tablet,Delayed Release (Dr/Ec) 81 mg PO QAM RF: 0 clonidine HCl 0.2 mg tablet 0.2 mg PO BID RF: 0 clonazepam 0.5 mg tablet 0.25 mg PO BID RF: 0 divalproex 125 mg capsule, delayed rel sprinkle 500 mg PO TIDM RF: 0 bupropion HCl 100 mg tablet 100 mg PO TID RF: 0 sennosides [senna] 8.6 mg Tablet 8.6 mg PO BID RF: 0 amlodipine 5 mg tablet 5 mg PO QAM RF: 0 aripiprazole 15 mg tablet 15 mg PO QAM RF: 0 sesame oil Oil 1 ea MISCELLANEOUS UD RF: 0 potassium chloride 10 mEq capsule, extended release 10 meq PO Q2D RF: 0 polyethylene glycol 3350 17 gram Powder In Packet 17 g PO DAILY PRN (Reason: Constipation) RF: 0 quetiapine 100 mg tablet 100 mg PO HS RF: 0 levothyroxine 25 mcg tablet 25 mcg PO QAM RF: 0 hydrocortisone [Proctozone-HC] 2.5 % Cream With Perineal Applicator 1 applic OK BID PRN (Reason: Hemorrhoids) RF: 0 pantoprazole 40 mg tablet,delayed release (DR/EC) 40 mg PO QAM RF: 0 furosemide 20 mg tablet 20 mg PO QAM RF: 0 white petrolatum [Vaseline] Gel 1 applic TOPICAL UD RF: 0 Dristan Long Lasting 0.05 % Mist 2 spray INTRANASAL Q12H PRN (Reason: Congestion) RF: 0 sodium chloride [Saline Mist] 0.65 % Aerosol,Benoit 1 spray INTRANASAL DAILY PRN (Reason: Congestion) RF: 0 Vitron-C 65 mg iron- 125 mg Tablet,Delayed Release (Dr/Ec) 1 tab PO 3XWK RF: 0 venlafaxine 37.5 mg capsule,extended release 24hr 37.5 mg PO DAILY RF: 0 venlafaxine [Effexor XR] 75 mg capsule,extended release 24hr 75 mg PO DAILY RF: 0 Discharge Problem: Sepsis Qualifiers: Sepsis type: sepsis due to unspecified organism Sepsis acute organ dysfunction status: unspecified Qualified Code(s): A41.9 - Sepsis, unspecified organism
[2019-10-30 20:38] LABS: Alanine Aminotransferase 153 U/L (12-78); Albumin Level 3.1 gm/dl (3.4-5.0); Aspartate Aminotransferase 140 U/L (15-37); BUN Creatinine Ratio 19.5 (10-20); Blood Urea Nitrogen 25 mg/dl (7-18); Carbon Dioxide 22 mmol/L (21-32); Chloride 103 mmol/L (98-107); Creatinine Clr Calc Pharmacy 70.5 ml/min; Est GFR (African American) 68.4; Glucose 168 mg/dl (70-99); Magnesium 1.9 mg/dl (1.8-2.4); Potassium 4.5 mmol/L (3.5-5.1); Sodium 134 mmol/L (136-145)
[2019-10-30] MEDS ORDERED: ACETAMINOPHEN 500 MG TAB PO STA (20:42)
[2019-10-30 20:43] LABS: Albumin Globulin Ratio 0.6 (0.9-2); Alkaline Phosphatase 112 U/L (45-117); Bilirubin,Total 0.6 mg/dl (0.2-1); Globulin 5.3 gm/dl (2.5-4.0); Total Protein 8.4 gm/dl (6.4-8.2); Troponin I < 0.015 ng/ml (0-0.045)
[2019-10-30] MEDS ORDERED: ACETAMINOPHEN 1,000 MG/100 ML VIAL IV STA (21:37)
[2019-10-30 21:49] LABS: INR 1.1 (0.9-1.1); Partial Thromboplastin Time 26.7 Seconds (21.0-31.0); Prothrombin Time 11.4 Seconds (9.0-12.0)
[2019-10-30 21:54] LABS: Appearance Urine Clear (Clear); Bacteria Urine Automated Negative (Negative); Bilirubin Urine Negative (Negative); Blood Urine Negative (Negative); Color Urine Dark Yellow; Glucose Urine UA Trace (Negative); Ketones Urine Trace (Negative); Leukocyte Esterase Urine Negative (Negative); Nitrite Urine Negative (Negative); Protein Urine 2+ (Negative); RBC Urine Automated 0-4 /hpf (0-4); Specific Gravity Urine 1.028 (1.000-1.030); Urobilinogen Urine Positive (Negative); pH Urine 6.5 (4.5-7.5)
[2019-10-30] MEDS ORDERED: HALOPERIDOL LACTATE 5 MG/ML 1 ML VIAL IV STA (21:59)
[2019-10-30] MEDS ORDERED: LORazepam 1 MG/2 ML VIAL IV STA (21:59)
[2019-10-30] MEDS ORDERED: IOVERSOL 100ml IV PRN (22:52)
[2019-10-30] MEDS ORDERED: METOPROLOL TARTRATE 1 MG/ML VIAL IV STA (23:38)
[2019-10-31 00:12] LABS: NT Pro B Type Natriuretic Pept 64 pg/ml (0-900)
[2019-10-31 00:19] LABS: Lyme Ab IgG w/WB Rflx Negative (Negative); Lyme Ab IgM w/WB Rflx Negative (Negative)
[2019-10-31] MEDS ORDERED: DOXYCYCLINE HYCLATE 100 MG in DEXTROSE 5% 100 ML IV STA (00:37)
[2019-10-31] MEDS ORDERED: SODIUM CHLORIDE 0.9% 500 ML IV ONE (00:48)
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
[2019-10-31] MEDS ORDERED: LACTATED RINGER'S 1,000 ML IV ONE (01:22)
[2019-10-31] MEDS ORDERED: ACETAMINOPHEN 325 MG TAB PO PRN (01:34)
[2019-10-31] MEDS ORDERED: POLYETHYLENE (MIRALAX) 17 GM PACK PO PRN (03:15)
[2019-10-31] MEDS ORDERED: OXYCODONE HCL IR 5 MG TAB (IMMEDIATE RELEASE) PO PRN (03:15)
[2019-10-31] MEDS ORDERED: OLANZapine 10 MG/2.1 ML SDV IM PRN (03:15)
[2019-10-31 04:02] LABS: Creatine Kinase 153 U/L (39-308)
[2019-10-31 04:43] LABS: Basophils # (auto) 0.01 K/uL (0-0.2); Basophils % (auto) 0.1 %; Eosinophils # (auto) 0.01 K/uL (0-0.5); Eosinophils % (auto) 0.1 %; Hematocrit (blood only) 43.9 % (42-52); Hemoglobin 15.1 g/dL (14.0-18.0); Immature Granulocytes # (auto) 0.08 K/uL (0.00-0.02); Immature Granulocytes % (auto) 0.6 %; Lymphocytes # (auto) 1.24 K/uL (1.2-3.4); Lymphocytes % (auto) 8.8 %; Mean Corpuscular Hemoglobin 33.6 pg (25-34); Mean Corpuscular Hgb Conc 34.4 g/dL (32-36); Mean Corpuscular Volume 97.8 fL (80-100); Mean Platelet Volume 11.5 fL (7.4-10.4); Monocytes # (auto) 1.26 K/uL (0.11-0.59); Neutrophils # (auto) 11.45 K/uL (1.4-6.5); Neutrophils % (auto) 81.4 %; Platelet Count 119 K/uL (130-400); RDW Coefficient of Variation 14.3 % (11.5-14.5); RDW Standard Deviation 50.8 fL (36.4-46.3); Red Blood Count 4.49 M/uL (4.7-6.1); White Blood Count 14.05 K/uL (4.8-10.8)
[2019-10-31 05:00] LABS: BUN Creatinine Ratio 17.2 (10-20); Calcium 8.5 mg/dl (8.5-10.1); Creatinine Clr Calc Pharmacy 70.5 ml/min; Est GFR (African American) 68.4; Potassium 4.9 mmol/L (3.5-5.1)
[2019-10-31 05:03] LABS: Albumin Globulin Ratio 0.6 (0.9-2); Bilirubin,Total 0.6 mg/dl (0.2-1); Globulin 5.3 gm/dl (2.5-4.0); Total Protein 8.3 gm/dl (6.4-8.2)
[2019-10-31] MEDS ORDERED: metroNIDAZOLE 500 MG/100 ML BAG IV STA ×2 (05:25→05:32)
[2019-10-31] MEDS: DOXYCYCLINE HYCLATE 100 MG CAP PO SCH ×2 (05:43→18:05)
[2019-10-31] MEDS: LACTATED RINGER'S 1,000 ML IV SCH ×2 (05:43→09:52)
[2019-10-31] MEDS: LEVOTHYROXINE SODIUM 25 MCG TABLET PO SCH (05:44)
[2019-10-31] MEDS ORDERED: METOPROLOL TARTRATE 1 MG/ML VIAL IV STA (07:25)
[2019-10-31] MEDS ORDERED: METOPROLOL TARTRATE 1 MG/ML VIAL IV ONE (07:31)
--- NOTE | 2019-10-31 07:31 | CT Scan Report ---
CT OF THE ABDOMEN AND PELVIS WITH CONTRAST CLINICAL HISTORY: Abdominal pain and fever. COMPARISON STUDY: CT of the abdomen and pelvis November 09, 2018. TECHNIQUE: Following IV administration of 92 mL of Optiray-320, axial images of the abdomen and pelvi s were obtained from the lung bases to the proximal femurs. Images were reviewed in the axial, sagitt al, and coronal planes. IV contrast was administered without complication. Automated exposure contro l was utilized for the study. A dose lowering technique was utilized adhering to the principles of [facility]. CT DOSE: 1286.73 mGycm FINDINGS: This exam is moderately compromised by respiratory motion. There is fatty infiltration of t he liver. No biliary or pancreatic ductal dilatation is noted. There is no peripancreatic or perichol ecystic infiltration. 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 The spleen, adrenal glands, kidneys and p ancreas are unremarkable. There is no hydronephrosis. There is no evidence for a bowel obstruction. T he appendix is normal. No bowel wall thickening is noted. No ascites or lymphadenopathy is noted. Sev eral old lumbar spine compression deformities are noted. IMPRESSION: 1. No acute process within the abdomen or pelvis. 2. Exam moderately compromised by motion artifact. 2. Fatty infiltration of the liver. 4. No bowel obstruction. Normal appendix. ACT 112: Negative or not required by law. Electronically signed by: Martínez Anand M.D. 10/31/2019 7:29 AM
--- NOTE | 2019-10-31 07:39 | XRay Report ---
XR chest 1V portable CLINICAL HISTORY: Sepsis. COMPARISON STUDY: Chest radiograph June 17, 2019. FINDINGS: Note is made of mild cardiomegaly without evidence for pulmonary edema. There is no pneumot horax or pleural effusion. There is no left clavicular fracture. Mild left basilar opacity favors ate lectasis. Patient is mildly rotated. IMPRESSION: 1. Mild left basilar opacity which favors atelectasis. 2. Mild cardiomegaly without evidence for pulmonary edema. ACT 112: Negative or not required by law. Electronically signed by: Martínez Anand M.D. 10/31/2019 7:38 AM
--- NOTE | 2019-10-31 08:06 | Ultrasound Report ---
ABDOMINAL ULTRASOUND, RIGHT UPPER QUADRANT HISTORY: Generalized abdominal pain. COMPARISON: Abdomen and pelvis CT 10/30/2019. FINDINGS: Pancreas: The pancreatic tail is obscured by overlying bowel gas. The remaining portions of the pancr eas are within normal limits. Liver: The liver is echogenic consistent with fatty change. 20 cm in length. Gallbladder: No gallbladder wall thickening. No gallstones. CBD: 5 mm. Right kidney: No hydronephrosis. IMPRESSION: 1. Normal gallbladder. No gallstones. 2. Hepatomegaly demonstrating fatty change. ACT 112: Negative or not required by law. Electronically signed by: Red Wiley M.D. 10/31/2019 8:05 AM
[2019-10-31] MEDS: carvediloL 12.5 MG TAB PO SCH ×2 (08:44→20:52)
[2019-10-31] MEDS: PROMETHAZINE HCL 12.5 MG in SODIUM CHLORIDE 0.9% 50 ML IV PRN (08:44)
[2019-10-31] MEDS: AMLODIPINE BESYLATE 5 MG TAB PO SCH (08:45)
[2019-10-31] MEDS: MULTIVITAMIN TAB PO SCH (08:45)
[2019-10-31] MEDS: DIVALPROEX SODIUM SPRINKLE 125 MG CAP PO SCH ×3 (08:45→16:52)
[2019-10-31] MEDS: cloNIDine HCL 0.1 MG TAB PO SCH ×2 (08:45→20:48)
[2019-10-31] MEDS: buPROPion HCl 100 MG TABLET PO SCH ×3 (08:46→20:47)
[2019-10-31] MEDS: lisinopriL 5 MG TAB PO SCH (08:46)
[2019-10-31] MEDS: FERROUS FUMARATE/ASCORBIC ACID 65 MG CAPCR PO SCH (08:46)
[2019-10-31] MEDS: VENLAFAXINE HCL XR 75 MG CAPXR PO SCH (08:46)
[2019-10-31] MEDS: ARIPiprazole 15 MG TAB PO SCH (08:46)
[2019-10-31] MEDS: VENLAFAXINE HCL XR 37.5 MG CAPXR PO SCH (08:46)
[2019-10-31] MEDS: ASPIRIN 81 MG ECTAB PO SCH (08:47)
[2019-10-31] MEDS: PANTOprazole 40 MG TAB PO SCH (08:47)
[2019-10-31] MEDS ORDERED: clonazePAM 0.25 MG TAB PO SCH (09:00)
[2019-10-31 09:16] LABS: Estimated Average Glucose 171 mg/dl; Hemoglobin A1C 7.6 % (4.5-5.6)
--- NOTE | 2019-10-31 09:17 | Hospitalist Progress Note ---
Date of Service October 31, 2019 Assessment & Plan Admission and Anticipated Discharge Date Admission Date: October 31, 2019 Results & Data Results & Data ([facility]) Vital Signs (Past 12 Hours) Vital Signs Temp Pulse Pulse Pulse Resp BP BP 10/31/19 07:34 106 H 179/93 H 10/31/19 07:04 37.4 C 106 H 28 H 179/93 H 10/31/19 07:00 102 H 10/31/19 02:27 37.6 C H 98 H 22 157/85 H 10/31/19 01:31 92 H 19 10/31/19 01:30 91 H 18 158/80 H 10/31/19 01:16 95 H 18 10/31/19 01:15 94 H 17 148/91 H 10/31/19 01:01 93 H 20 10/31/19 01:00 94 H 17 136/84 10/31/19 00:47 98 H 21 10/31/19 00:46 95 H 21 140/83 10/31/19 00:31 99 H 18 10/31/19 00:30 97 H 19 143/82 H 10/31/19 00:24 38.1 C H 10/31/19 00:16 97 H 23 10/31/19 00:15 98 H 19 141/78 H 10/31/19 00:02 98 H 18 10/31/19 00:01 100 H 24 166/91 H 10/31/19 00:00 101 H 22 10/30/19 23:56 104 H 163/93 H 10/30/19 23:46 104 H 22 163/93 H 10/30/19 23:32 106 H 20 10/30/19 23:31 104 H 22 168/89 H 10/30/19 23:30 105 H 25 H 10/30/19 23:16 108 H 26 H 10/30/19 23:15 108 H 23 115/100 10/30/19 23:01 109 H 21 131/90 10/30/19 23:00 110 H 21 10/30/19 22:57 109 H 23 187/92 H 10/30/19 22:30 112 H 24 10/30/19 22:17 112 H 22 10/30/19 22:16 114 H 22 189/98 H 10/30/19 22:00 112 H 23 10/30/19 21:45 114 H 25 H 209/119 H 10/30/19 21:31 110 H 31 H 10/30/19 21:30 110 H 28 H 182/81 H Pulse Ox 10/31/19 07:34 10/31/19 07:04 96 10/31/19 07:00 10/31/19 02:27 98 10/31/19 01:31 97 10/31/19 01:30 97 10/31/19 01:16 97 10/31/19 01:15 97 10/31/19 01:01 96 10/31/19 01:00 96 10/31/19 00:47 10/31/19 00:46 10/31/19 00:31 10/31/19 00:30 10/31/19 00:24 10/31/19 00:16 10/31/19 00:15 10/31/19 00:02 10/31/19 00:01 10/31/19 00:00 10/30/19 23:56 10/30/19 23:46 10/30/19 23:32 10/30/19 23:31 10/30/19 23:30 10/30/19 23:16 10/30/19 23:15 10/30/19 23:01 10/30/19 23:00 10/30/19 22:57 10/30/19 22:30 10/30/19 22:17 10/30/19 22:16 10/30/19 22:00 10/30/19 21:45 10/30/19 21:31 96 10/30/19 21:30 98
[2019-10-31] MEDS: clonazePAM 0.5 MG TAB PO SCH ×2 (09:27→20:51)
[2019-10-31] MEDS: SENNA 8.6 MG TAB PO SCH ×2 (09:28→20:52)
[2019-10-31] MEDS ORDERED: AZTREONAM CONSULT ACTIVE PRN (09:33)
[2019-10-31] MEDS: AZTREONAM 2,000 MG in DEXTROSE 5% 100 ML IV SCH ×2 (10:22→18:03)
--- NOTE | 2019-10-31 10:59 | Gastrointestinal Consultation ---
Date of Consultation October 31, 2019 Assessment & Plan (1) Sepsis: (2) Intellectual disability: (3) Abdominal pain: Pt is a 64 y/o male currently admitted for sepsis, workup pending and tick borne illness to be ruled out. He is seen for c/o LLQ abd pain. Upon exam later in the day he is w/o pain. U/S, CT abd/pelvis w/o acute pathology to explain pain. He is moving bowels. - F/U blood cx, anasplasmosis. Lyme negative. Recommend urine cx to r/o UTI - Check KUB - May try low dose Dicyclomine 10mg BID prn abd pain - Elevated LFTs: likely NAFLD F2 fibroscan score. Previously had planned for EUS w liver bx. Pt also scheduled for colonoscopy on 11/07 due to hx of + cologuard. I had spoken w pt's sister (Gladys) about these procedures and pt's goals of care. At this point Gladys feels the colonoscopy/EUS evaluation may not be pt's best interests given his mental disabilities and other medical comorbidities. I will leave it to her to cancel colonoscopy if she made final decision. We have not scheduled EUS liver bx. - GI will sign off; pls recall prn Supervising Physician Co-Signing Physician Notes I performed a history and physical examination of the patient today, including specifically on physical exam - soft abdomen. I have discussed the patient's management with the advanced practitioner. Please refer to the nurse practitioner's note for the documented findings and plan of care. Patient with sepsis but no clear source, CT scan with no clear GI pathology. Consult ID. Sister declined endoscopic intervention. Recall Gi if needed. History of Present Illness Reason for Consultation: Lower abd pain Requesting Physician: Dr. Hipolito Orourke Attending Physician: Dr. Roman Zambrano History of Present Illness Pt is a 64 y/o male resident of [place]. He's a limited historian given mental disability. Information obtained from mostly chart review, RNs and sister (Gladys). Pt currently admitted for suspected sepsis, blood cx pending, and tick borne illness to be ruled out. GI consulted for evaluation of persistent lower abd pain. When asked he points to LLQ as site of pain. Some nausea present but no vomiting. He had large BM this AM per RN w/o signs of blood. Labs reviewed showed elevated transaminases though at baseline and previous he was seen by VANNESSA Monaco (GI [facility]) - suspected NAFLD w F2 Fibroscan score. EUS liver bx recommended however I don't see it scheduled. Abdominal imaging studies w U/S and CT abd/pelvis showed hepatomegaly and hepatic steatosis but otherwise unremarkable Allergies Allergy/AdvReac Type Severity Reaction Status Date / Time terbinafine Allergy Mild Unknown Verified 10/30/19 21:11 Penicillins Allergy Unknown fam hx of Verified 10/30/19 21:11 allergy Home Medications Home Medications Medication Instructions Recorded Confirmed Type aspirin 81 mg PO QAM 02/01/18 10/30/19 History carvedilol 12.5 mg PO BID 02/01/18 10/30/19 History clonidine HCl 0.2 mg PO BID 02/01/18 10/30/19 History lisinopril 20 mg PO QAM 02/01/18 10/30/19 History multivitamin [Multiple Vitamins] 1 tab PO QAM 02/01/18 10/30/19 History bupropion HCl 100 mg PO TID 09/21/18 10/30/19 History sennosides [senna] 8.6 mg PO BID 09/21/18 10/30/19 History clonazepam 0.25 mg PO BID 09/30/18 10/30/19 History divalproex 500 mg PO TIDM 09/30/18 10/30/19 History amlodipine 5 mg PO QAM 06/17/19 10/30/19 History aripiprazole 15 mg PO QAM 06/17/19 10/30/19 History furosemide 20 mg PO QAM 06/17/19 10/30/19 History hydrocortisone [Proctozone-HC] 1 applic [place] BID PRN 06/17/19 10/30/19 History iron,carbonyl-vitamin C [Vitron-C] 1 tab PO 3XWK 06/17/19 10/30/19 History levothyroxine 25 mcg PO QAM 06/17/19 10/30/19 History oxymetazoline [Tali Long 2 spray INTRANASAL Q12H PRN 06/17/19 10/30/19 History Lasting] pantoprazole 40 mg PO QAM 06/17/19 10/30/19 History polyethylene glycol 3350 17 g PO DAILY PRN 06/17/19 10/30/19 History potassium chloride 10 meq PO Q2D 06/17/19 10/30/19 History quetiapine 100 mg PO HS 06/17/19 10/30/19 History sesame oil 1 ea MISCELLANEOUS UD 06/17/19 10/30/19 History sodium chloride [Saline Mist] 1 spray INTRANASAL DAILY PRN 06/17/19 10/30/19 History white petrolatum [Vaseline] 1 applic TOPICAL UD 06/17/19 10/30/19 History venlafaxine 37.5 mg PO DAILY 09/18/19 10/30/19 History venlafaxine [Effexor XR] 75 mg PO DAILY 10/28/19 10/30/19 History Patient History Social History Smoking Status: Never smoker Hx Alcohol Use: No Hx Substance Use: No Preferred Language: Palestinian Communication Ability: Impaired Interior Mechanic Required: No Beliefs That Will Affect Care: None marital status: Single Current Living Situation: Boarding Home Current Living Situation Comment: [facility] Feels Safe at Home: Yes Review of Systems Review of Systems: All systems reviewed & are unremarkable except as noted in HPI & below Physical Exam Constitutional: well groomed, cooperative and comfortable Eyes: PERRL, conjunctivae normal, anicteric sclerae ENMT: external ear and nose normal, oropharynx normal Respiratory: normal respiratory effort, lungs clear to auscultation Cardiovascular: RRR, no murmur, no edema Gastrointestinal (Abdomen): Inspection/Auscultation: + hypoactive bowel sounds Percussion/Palpation: + abdomen tender (LLQ) and abdomen soft Skin: no rashes, warm and dry no jaundice Neurologic: Motor/Sensory: no asterixis Psychiatric: alert, mentally disabled Lymphatic: no lymphedema Results & Data ([facility]) Vital Signs (Past 12 Hours) Vital Signs Temp Pulse Pulse Pulse Resp BP BP 10/31/19 07:34 106 H 179/93 H 10/31/19 07:04 37.4 C 106 H 28 H 179/93 H 10/31/19 07:00 102 H 10/31/19 02:27 37.6 C H 98 H 22 157/85 H 10/31/19 01:31 92 H 19 10/31/19 01:30 91 H 18 158/80 H 10/31/19 01:16 95 H 18 10/31/19 01:15 94 H 17 148/91 H 10/31/19 01:01 93 H 20 10/31/19 01:00 94 H 17 136/84 10/31/19 00:47 98 H 21 10/31/19 00:46 95 H 21 140/83 10/31/19 00:31 99 H 18 10/31/19 00:30 97 H 19 143/82 H 10/31/19 00:24 38.1 C H 10/31/19 00:16 97 H 23 10/31/19 00:15 98 H 19 141/78 H 10/31/19 00:02 98 H 18 10/31/19 00:01 100 H 24 166/91 H 10/31/19 00:00 101 H 22 10/30/19 23:56 104 H 163/93 H 10/30/19 23:46 104 H 22 163/93 H 10/30/19 23:32 106 H 20 10/30/19 23:31 104 H 22 168/89 H 10/30/19 23:30 105 H 25 H 10/30/19 23:16 108 H 26 H 10/30/19 23:15 108 H 23 115/100 10/30/19 23:01 109 H 21 131/90 10/30/19 23:00 110 H 21 Pulse Ox 10/31/19 07:34 10/31/19 07:04 96 10/31/19 07:00 10/31/19 02:27 98 10/31/19 01:31 97 10/31/19 01:30 97 10/31/19 01:16 97 10/31/19 01:15 97 10/31/19 01:01 96 10/31/19 01:00 96 10/31/19 00:47 10/31/19 00:46 10/31/19 00:31 10/31/19 00:30 10/31/19 00:24 10/31/19 00:16 10/31/19 00:15 10/31/19 00:02 10/31/19 00:01 10/31/19 00:00 10/30/19 23:56 10/30/19 23:46 10/30/19 23:32 10/30/19 23:31 10/30/19 23:30 10/30/19 23:16 10/30/19 23:15 10/30/19 23:01 10/30/19 23:00 (1) Sepsis Sepsis acute organ dysfunction status: unspecified Sepsis type: sepsis due to unspecified organism Qualified Code(s): A41.9 - Sepsis, unspecified organism
[2019-10-31] MEDS: metroNIDAZOLE 500 MG/100 ML BAG IV SCH ×2 (14:02→22:02)
--- NOTE | 2019-10-31 14:06 | Ultrasound Report ---
ULTRASOUND BILATERAL LOWER EXTREMITY VENOUS CLINICAL HISTORY: Lower extremity edema. COMPARISON STUDY: Bilateral lower extremity venous ultrasound dated 09/16/2019. TECHNIQUE: Real-time, grayscale, and color Doppler sonography of the deep veins of the right and left lower extremity was performed from the inguinal crease to the calf. Compression and augmentation wer e utilized. FINDINGS: There is no sonographic evidence of deep venous thrombosis identified in the right or left lower extremity. The common femoral, superficial femoral, and popliteal veins are patent and normally compressible bilaterally. The greater saphenous vein and the profunda femoris vein at the junction w ith the common femoral vein are clear in both legs. The visualized calf veins are patent bilaterally. IMPRESSION: There is no sonographic evidence of deep venous thrombosis identified in the right or lef t lower extremity. ACT 112: Negative or not required by law. Electronically signed by: Jayson Dimas M.D. 10/31/2019 2:04 PM
--- NOTE | 2019-10-31 15:05 | Electrocardiogram Report ---
Test Reason : Blood Pressure : / mmHG Vent. Rate : 110 BPM Atrial Rate : 110 BPM P-R Int : 164 ms QRS Dur : 086 ms QT Int : 338 ms P-R-T Axes : 070 054 044 degrees QTc Int : 457 ms Sinus tachycardia Possible Left atrial enlargement Anterior infarct (cited on or before 10-JUN-2010) Abnormal ECG When compared with ECG of 17-JUN-2019 09:27, No significant change was found Confirmed by Junaid Alan ([id number]) on 10/31/2019 3:04:49 PM Referred By: REFERRED SELF Confirmed By:Junaid Alan
--- NOTE | 2019-10-31 18:42 | Communication Note ---
Date of Service: October 31, 2019 ff up for sepsis, abdominal pain seen resting in bed, sitting up, not in distress reports abdominal discomfort- lower quadrants no nausea/vomiting denies shortness of breath, cough denies headache, dizziness, chest pain, problems with urination, no diarrhea noted VS noted and reviewed not in distress, alert, answers most questions appropriately no acc muscle use clear breath sounds bilaterally abdomen non distended, normal bowel sounds, soft, mild lower quadrant tenderness no rivera's sign mild lower leg edema a/p> Sepsis, unclear source possible Intraabdominal Infection? possible mild L sided pneumonia? Viral Syndrome? r/o Anaplasmosis afebrile since this AM WBC decreased to 14k CXR: possible LL lobe pneumonia CT abdomen: unrevealing GB US: no cholecystitis Lactic acid improving add Aztreonam, Flagyl continue Doxycycline lower IV fluids Chronic CHF on the dry side gentle IV fluids ordered History of CAD no cardiac symptoms Hipolito Orourke MD
[2019-10-31] MEDS: QUETIAPINE FUMARATE 100 MG TABLET PO SCH (20:51)
[2019-10-31 21:24] LABS: Appearance Urine Clear (Clear); Bacteria Urine Automated Negative (Negative); Bilirubin Urine Negative (Negative); Blood Urine Negative (Negative); Cast Urine Automated 0 /lpf (0-5); Color Urine Dark Yellow; Glucose Urine UA Negative (Negative); Ketones Urine Trace (Negative); Leukocyte Esterase Urine Trace (Negative); Nitrite Urine Negative (Negative); Protein Urine Trace (Negative); RBC Urine Automated 0-4 /hpf (0-4); Specific Gravity Urine 1.021 (1.000-1.030); Urobilinogen Urine Positive (Negative)
[2019-11-01] MEDS: AZTREONAM 2,000 MG in DEXTROSE 5% 100 ML IV SCH ×3 (00:32→17:00)
[2019-11-01] MEDS: PROMETHAZINE HCL 12.5 MG in SODIUM CHLORIDE 0.9% 50 ML IV PRN (03:09)
[2019-11-01] MEDS: metroNIDAZOLE 500 MG/100 ML BAG IV SCH ×3 (04:42→21:18)
[2019-11-01] MEDS: LEVOTHYROXINE SODIUM 25 MCG TABLET PO SCH (04:42)
[2019-11-01] MEDS: DOXYCYCLINE HYCLATE 100 MG CAP PO SCH ×2 (04:42→19:17)
[2019-11-01] MEDS: DIVALPROEX SODIUM SPRINKLE 125 MG CAP PO SCH ×3 (08:22→16:57)
[2019-11-01] MEDS: ARIPiprazole 15 MG TAB PO SCH (08:23)
[2019-11-01] MEDS: buPROPion HCl 100 MG TABLET PO SCH ×3 (08:23→20:27)
[2019-11-01] MEDS: carvediloL 12.5 MG TAB PO SCH ×2 (08:24→20:26)
[2019-11-01] MEDS: SENNA 8.6 MG TAB PO SCH ×2 (08:24→20:25)
[2019-11-01] MEDS: ASPIRIN 81 MG ECTAB PO SCH (08:24)
[2019-11-01] MEDS: VENLAFAXINE HCL XR 37.5 MG CAPXR PO SCH (08:25)
[2019-11-01] MEDS: MULTIVITAMIN TAB PO SCH (08:25)
[2019-11-01] MEDS: lisinopriL 5 MG TAB PO SCH (08:25)
[2019-11-01] MEDS: PANTOprazole 40 MG TAB PO SCH (08:26)
[2019-11-01] MEDS: VENLAFAXINE HCL XR 75 MG CAPXR PO SCH (08:26)
[2019-11-01] MEDS: AMLODIPINE BESYLATE 5 MG TAB PO SCH (08:27)
[2019-11-01] MEDS: clonazePAM 0.5 MG TAB PO SCH ×2 (08:44→20:27)
[2019-11-01] MEDS: cloNIDine HCL 0.1 MG TAB PO SCH ×2 (08:44→20:25)
[2019-11-01 09:13] LABS: Hematocrit (blood only) 35.7 % (42-52); Hemoglobin 12.5 g/dL (14.0-18.0); Mean Corpuscular Hemoglobin 33.9 pg (25-34); Mean Corpuscular Volume 96.7 fL (80-100); RDW Coefficient of Variation 14.3 % (11.5-14.5); RDW Standard Deviation 50.8 fL (36.4-46.3); Red Blood Count 3.69 M/uL (4.7-6.1); White Blood Count 9.48 K/uL (4.8-10.8)
[2019-11-01 09:33] LABS: Basophils # (auto) 0.01 K/uL (0-0.2); Basophils % (auto) 0.1 %; Eosinophils # (auto) 0.05 K/uL (0-0.5); Eosinophils % (auto) 0.5 %; Immature Granulocytes # (auto) 0.07 K/uL (0.00-0.02); Immature Granulocytes % (auto) 0.7 %; Lymphocytes # (auto) 1.63 K/uL (1.2-3.4); Lymphocytes % (auto) 17.2 %; Mean Platelet Volume 10.5 fL (7.4-10.4); Monocytes # (auto) 1.19 K/uL (0.11-0.59); Monocytes % (auto) 12.6 %; Neutrophils # (auto) 6.53 K/uL (1.4-6.5); Neutrophils % (auto) 68.9 %; Platelet Count 99 K/uL (130-400); Platelet Estimate Decreased (Normal)
[2019-11-01 09:37] LABS: BUN Creatinine Ratio 18.1 (10-20); Calcium 8.5 mg/dl (8.5-10.1); Creatinine Clr Calc Pharmacy 78.1 ml/min; Est GFR (African American) 76.2; Est GFR (Non-African American) 65.7; Potassium 3.8 mmol/L (3.5-5.1)
--- NOTE | 2019-11-01 13:09 | Communication Note ---
Date of Service: November 01, 2019 I called and spoke w pt's sister and POA, Gladys. Gladys decided that at this point of pt's acute illness which prompted his admission to [facility], she would like to defer colonoscopy evaluation which was initially scheduled to f/u a positive Cologuard. I did mention to Gladys options of providing colonoscopy while pt is inpatient prior to his discharge eventually. She would like to continue deferring for now. She mentioned she may decide to proceed with the colonoscopy once he's stable. I have communicated this to Dr. Orourke (hospitalist) and Olu ([employer] group exercise class instructor). Pls recall GI if family decides to proceed with colonoscopy eval while pt is admitted prior to his discharge.
[2019-11-01] MEDS ORDERED: COUGH DROP (SUGAR FREE) LOZ 24 LOZ/1 BOX BUCCAL PRN (14:12)
--- NOTE | 2019-11-01 18:24 | Hospitalist Progress Note ---
Date of Service November 01, 2019 Assessment & Plan (1) Severe sepsis: 64-year-old male with history of intellectual disability, chronic systolic heart failure, CAD, hypertension, other problems noted below presenting with fever and abdominal pain. Severe sepsis SIRS plus lactic acid elevation Possible sources : Left lower lobe pneumonia Viral gastroenteritis Afebrile since admission Leukocytosis resolved from 15,000--->9000 Lactic acid also resolved 3.5--> 2.2 Blood cultures: Negative Urine culture: Negative Nasal MRSA: Positive Chest x-ray: Possible left lower lobe opacity Acute cholecystitis ruled out, GI consulted Anaplasmosis pending Lyme disease screen negative Continue empiric aztreonam plus Flagyl for possible intra-abdominal infection, if afebrile and cultures are negative tomorrow DC aztreonam and Flagyl Continue doxycycline 100 mg p.o. day 3 out of 7 Start mupirocin day 1 out of 5 Lower abdominal pain Unclear etiology CT abdomen and pelvis: Unrevealing GI consulted Recommend Bentyl as needed Patient denies abdominal pain today Advance diet to soft diet Elevated LFTs, likely NAFLD, plan for endoscopic ultrasound liver biopsy as outpatient Also patient tested positive for Cologuard as an outpatient, colonoscopy recommended, per RAMÓN Paul's discussions with patient's Sister Gladys Loera, she would like to defer colonoscopy at this point Close outpatient follow-up with GI Chronic systolic heart failure secondary to ischemic cardiomyopathy (EF 45 to 49%, TTE 2019) Patient clinically dehydrated on admission Given IV fluids, Lasix held Euvolemic today Monitor volume status closely History of CAD No cardiac symptoms hypertension Resume usual carvedilol, clonidine, lisinopril Chronic transaminitis, probable NAFLD Management per #2 Hyperglycemia, newly diagnosed diabetes type 2 A1c 7.4 Will need to start metformin upon discharge chronic thrombocytopenia Blood count decreasing slowly, likely from underlying infection Monitor CBC history of spina bifida intellectual impairment Mental status at baseline per caregiver DVT prophylaxis. SCDs RE thrombocytopenia Full code as per sister/POA, Ms. Gladys Loera. She requests updates from providers through [phone]. Disposition Anticipate to return to [facility] when medically stable Admission and Anticipated Discharge Date Admission Date: October 31, 2019 Subjective Follow-up for sepsis, fever, unclear source Afebrile since yesterday technical staff assistant reports patient has been scratching the staff Seen with KYLEIGH Pollock and TIAGO George at the bedside Patient is sitting up in bed, watching TV, not in distress Patient's caregiver Nigel from the shelter also at the bedside According to him, patient's back to his baseline mental status but seems to be somewhat weak today Patient answers most questions appropriately He is awake and alert for me, animated Denies shortness of breath, cough, fever or chills, sputum production Lower abdominal pain has resolved, no nausea or vomiting Positive BMs Denies headache, dizziness or any other symptoms Appetite is good No other symptoms Review of Systems Review of Systems: All systems reviewed & are unremarkable except as noted in HPI & below Physical Exam Physical Exam: General- oriented x 2, not in distress, speaks in sentences with no effort or accessory muscle use Eyes- anicteric Neck- no JVD Lungs- clear breath sounds bilaterally, no crackles, no wheezing bilaterally Heart- normal rate, regular rhythm; no murmurs Abdomen- normal bowel sounds, nondistended, soft, nontender Extremities-trace pretibial edema, no calf tenderness Neuro- alert, oriented x 3; no gross focal neurologic deficits Skin- warm & dry Results & Data Results & Data ([facility]) Vital Signs (Past 12 Hours) Vital Signs Temp Pulse Pulse Resp BP Pulse Ox 11/01/19 15:36 37.6 C H 92 H 18 157/85 H 94 11/01/19 14:20 91 H 11/01/19 10:59 86 20 151/83 H 93 11/01/19 07:00 36.5 C 85 87 20 149/81 H 93
[2019-11-01] MEDS: QUETIAPINE FUMARATE 100 MG TABLET PO SCH (20:24)
[2019-11-01] MEDS: MUPIROCIN 2% OINT 22 GM TUBE INTNAS SCH (20:27)
[2019-11-02] MEDS: AZTREONAM 2,000 MG in DEXTROSE 5% 100 ML IV SCH (01:30)
[2019-11-02] MEDS: metroNIDAZOLE 500 MG/100 ML BAG IV SCH (05:33)
[2019-11-02] MEDS: LEVOTHYROXINE SODIUM 25 MCG TABLET PO SCH (05:34)
[2019-11-02] MEDS: DOXYCYCLINE HYCLATE 100 MG CAP PO SCH ×2 (05:34→17:04)
[2019-11-02] MEDS: PROMETHAZINE HCL 12.5 MG in SODIUM CHLORIDE 0.9% 50 ML IV PRN (06:23)
[2019-11-02] MEDS ORDERED: ALBUT/IPRATROP 3MG/0.5MG NEB 3 ML VIAL NEB STA ×2 (06:26→07:16)
[2019-11-02] MEDS ORDERED: ERTAPENEM SODIUM 1,000 MG in SODIUM CHLORIDE 0.9% 50 ML IV ONE (07:30)
--- NOTE | 2019-11-02 07:44 | XRay Report ---
SINGLE VIEW CHEST CLINICAL HISTORY: Cough. FINDINGS: An AP, portable, upright chest radiograph is compared to study dated 10/30/2019. Correlation is made with chest CT dated 02/09/2018. The heart is enlarged. There is pulmonary vascular congestio n. Atelectasis is noted at the lung bases. No large pleural effusion or pneumothorax is seen. The ske letal structures are osteopenic. The bony thorax is grossly intact. Scoliosis is noted in the thoraci c spine. IMPRESSION: Cardiomegaly with mild pulmonary vascular congestion. ACT 112: Negative or not required by law. Electronically signed by: Jayson Dimas M.D. 11/02/2019 7:42 AM
--- NOTE | 2019-11-02 08:03 | Communication Note ---
Date of Service: November 02, 2019 Notified by RN of emesis episode around 6:30 AM. Subsequent cough symptoms. RN worried about aspiration. O2 sats 91 on room air as per RN. Patient complaining of cough, S OB symptoms. Chest x-ray as per my interpretation : Possible infiltrate right, interstitial congestion AP Possible aspiration pneumonia No sepsis for now Ertapenem Nebs stat DC current aztreonam, Flagyl Rx for sepsis of unknown source Will relay to AM provider.
--- NOTE | 2019-11-02 08:15 | Hospitalist Progress Note ---
Date of Service November 02, 2019 Assessment & Plan (1) Severe sepsis: 64-year-old male with history of intellectual disability, chronic systolic heart failure, CAD, hypertension, other problems noted below presenting with fever and abdominal pain. Severe sepsis SIRS plus lactic acid elevation Possible sources : Left lower lobe pneumonia Viral gastroenteritis Resolved Afebrile since admission Normal white count, normal lactic acid level Blood cultures: Negative Urine culture: Negative Nasal MRSA: Positive/on mupirocin day 2 out of 5 Aspiration pneumonia Had vomiting episode earlier, leading to aspiration, chest x-ray shows right lower lobe infiltrate Patient started on Azactam Speech evaluation requested Aspiration precaution Lower abdominal pain Symptom has resolved CT abdomen and pelvis: Unrevealing GI consulted Recommend Bentyl as needed Patient denies abdominal pain today Advance diet to soft diet (Per prior hospitalist documentation: Elevated LFTs, likely NAFLD, plan for endoscopic ultrasound liver biopsy as outpatient Also patient tested positive for Cologuard as an outpatient, colonoscopy recommended, per RAMÓN Paul's discussions with patient's Sister Gladys Loera, she would like to defer colonoscopy at this point Close outpatient follow-up with GI Chronic systolic heart failure secondary to ischemic cardiomyopathy (EF 45 to 49%, TTE 2019) Stable volume status History of CAD No cardiac symptoms hypertension On l carvedilol, clonidine, lisinopril Chronic transaminitis, probable NAFLD Start mupirocin day 1 out of 5 Hyperglycemia, newly diagnosed diabetes type 2 A1c 7.4 Will need to start metformin upon discharge chronic thrombocytopenia Monitor CBC history of spina bifida intellectual impairment Mental status at baseline per caregiver DVT prophylaxis. SCDs RE thrombocytopenia Full code as per sister/POA, Ms. Gladys Loera. She requests updates from providers through [phone]. Disposition Anticipate to return to [facility] when medically stable Admission and Anticipated Discharge Date Admission Date: October 31, 2019 Subjective Patient seen at bedside, Noted aspiration event earlier this morning, Patient had a vomiting episode after getting breathing treatment, priya aspiration with coughing noted Chest x-ray shows right lower lobe infiltrate, new from prior chest x-ray Patient able to answer questions, states he feels fine, Wants to go home , Patient has bilateral mittens present at he was scratching nursing/caregivers yesterday No respiratory distress, no hypoxia patient is in room air, no fever, no tachypnea noted Does not have any cough Review of Systems Review of Systems: All systems reviewed & are unremarkable except as noted in HPI & below Respiratory: no cough, no sputum production and no wheezing Physical Exam Constitutional: WD/WN, vitals as above no acute distress Eyes: sclerae not anicteric ENMT: external ear and nose normal, oropharynx normal Respiratory: normal respiratory effort; no cough Auscultation: no crackles, no rales and no wheezes Cardiovascular: RRR, no murmur, no edema Gastrointestinal (Abdomen): Percussion/Palpation: abdomen soft; abdomen nontender Musculoskeletal: no cyanosis or clubbing, extremities motor strength 5/5 Skin: Stable scratch jessika noted on right lower extremity with petechiae Neurologic: No focal neurological deficit, Baseline intellectual deficit, able to answer simple questions Psychiatric: Orientation: alert Baseline intellectual disability Results & Data Results & Data ([facility]) Vital Signs (Past 12 Hours) Vital Signs Temp Pulse Pulse Pulse Resp BP Pulse Ox 11/02/19 07:29 86 18 95 11/02/19 07:00 89 11/02/19 06:28 88 20 91 11/02/19 05:39 37.2 C 11/02/19 01:56 76 20 122/75 11/01/19 23:35 86
[2019-11-02] MEDS: DIVALPROEX SODIUM SPRINKLE 125 MG CAP PO SCH ×3 (08:36→17:04)
[2019-11-02] MEDS: carvediloL 12.5 MG TAB PO SCH ×2 (08:37→21:21)
[2019-11-02] MEDS: VENLAFAXINE HCL XR 75 MG CAPXR PO SCH (08:38)
[2019-11-02] MEDS: PANTOprazole 40 MG TAB PO SCH (08:39)
[2019-11-02] MEDS: FERROUS FUMARATE/ASCORBIC ACID 65 MG CAPCR PO SCH (08:39)
[2019-11-02] MEDS: VENLAFAXINE HCL XR 37.5 MG CAPXR PO SCH (08:40)
[2019-11-02] MEDS: ARIPiprazole 15 MG TAB PO SCH (08:40)
[2019-11-02] MEDS: buPROPion HCl 100 MG TABLET PO SCH ×3 (08:41→21:23)
[2019-11-02] MEDS: SENNA 8.6 MG TAB PO SCH ×2 (08:42→21:21)
[2019-11-02] MEDS: AMLODIPINE BESYLATE 5 MG TAB PO SCH (08:43)
[2019-11-02] MEDS: cloNIDine HCL 0.1 MG TAB PO SCH ×2 (08:45→21:22)
[2019-11-02] MEDS: lisinopriL 20 MG TAB PO SCH (08:46)
[2019-11-02 09:00] LABS: Basophils # (auto) 0.01 K/uL (0-0.2); Basophils % (auto) 0.1 %; Eosinophils # (auto) 0.09 K/uL (0-0.5); Hematocrit (blood only) 37.4 % (42-52); Hemoglobin 12.9 g/dL (14.0-18.0); Immature Granulocytes # (auto) 0.11 K/uL (0.00-0.02); Immature Granulocytes % (auto) 1.3 %; Lymphocytes # (auto) 1.34 K/uL (1.2-3.4); Lymphocytes % (auto) 15.5 %; Mean Corpuscular Hemoglobin 32.9 pg (25-34); Mean Corpuscular Hgb Conc 34.5 g/dL (32-36); Mean Corpuscular Volume 95.4 fL (80-100); Mean Platelet Volume 10.8 fL (7.4-10.4); Monocytes # (auto) 1.24 K/uL (0.11-0.59); Monocytes % (auto) 14.3 %; Neutrophils # (auto) 5.88 K/uL (1.4-6.5); Neutrophils % (auto) 67.8 %; Platelet Count 112 K/uL (130-400); RDW Coefficient of Variation 14.2 % (11.5-14.5); RDW Standard Deviation 50.2 fL (36.4-46.3); Red Blood Count 3.92 M/uL (4.7-6.1); White Blood Count 8.67 K/uL (4.8-10.8)
[2019-11-02] MEDS ORDERED: ERTAPENEM CONSULT ACTIVE PRN (09:00)
[2019-11-02] MEDS: clonazePAM 0.5 MG TAB PO SCH ×2 (09:00→21:22)
[2019-11-02 09:23] LABS: BUN Creatinine Ratio 18.2 (10-20); Calcium 8.6 mg/dl (8.5-10.1); Creatinine Clr Calc Pharmacy 81.7 ml/min; Est GFR (African American) 81.2; Potassium 3.8 mmol/L (3.5-5.1)
[2019-11-02] MEDS: MUPIROCIN 2% OINT 22 GM TUBE INTNAS SCH ×2 (11:02→21:18)
[2019-11-02] MEDS: MULTIVITAMIN TAB PO SCH (11:03)
[2019-11-02] MEDS: QUETIAPINE FUMARATE 100 MG TABLET PO SCH (21:20)
[2019-11-02] MEDS ORDERED: VANCOMYCIN CONSULT ACTIVE PRN (22:34)
[2019-11-02] MEDS ORDERED: VANCOMYCIN HCL 2,250 MG in SODIUM CHLORIDE 0.9% 500 ML IV STA (22:44)
--- NOTE | 2019-11-02 23:01 | Pharmacy Report ---
Pharmacy Abx Initial Consult - Date of Service November 02, 2019 - Pharmacy Dosing Scope Date of Consult: Consultation requested by: Dr. Hernandez Pharmacy is consulted to initiate Vancomycin + Ertapenem IV dosing therapy, order appropriate labs and adjust drug dose/frequency. - Subjective The patient is a 64 year old M admitted on 10/31/19 01:20. - Objective Height: 5 ft 7 in Weight: 112.1 kg Vital Signs (Past 12hrs): Vital Signs Temp Pulse Pulse Resp BP Pulse Ox 11/02/19 19:56 37.2 C 77 18 142/81 H 98 11/02/19 15:30 78 11/02/19 14:34 36.9 C 77 18 109/71 93 11/02/19 12:50 36.8 C 11/02/19 12:44 37.5 C 11/02/19 11:10 37.2 C 86 18 154/84 H 91 Lab Results (24hrs): Laboratory Tests (24 Hours) 11/02/19 11/02/19 08:41 08:41 WBC 8.67 Neut # (Auto) 5.88 Creatinine 1.12 Est Cr Clr Drug Dosing 81.7 Micro Results: 10/30/19 20:10 Anaerobic Blood Culture - Final Blood - Risk Factors for Resistance * Resident in a long-term * Antimicrobial use within the last 90 days: * Aztreonam + Flagyl + Doxycycline - Assessment & Plan Assessment 64 year old M admitted for sepsis secondary to possible intra-abdominal source vs possible lyme/anaplasmosis * Received Doxycycline + Aztreonam + Flagyl from 10/29 - 10/31 (family h/o penicillin allergy) * Switched to Ertapenem this morning for possible pneumonia * Remains on doxycycline 100 mg PO BID for possible lyme * 1/4 bottles from blood cultures is growing gram positive cocci in clusters prompting vancomycin initiation * S. aureus and MRSA PCR pending. MRSA nasal swab was positive. Plan Vancomycin + Ertapenem + Doxycycline for treatment of Bacteremia/PNA/Lyme Vancomycin IV * Estimated PK Parameters: t1/2 ~ 10 hrs * Loading dose: 2250 mg (20 mg/kg) * Maintenance dose: 1500 mg IV (13 mg/kg) every 12 hours * Goal trough level: 15 to 20 mcg/mL * Trough level ordered for 11/03 at 1030 Ertapenem * 1 g IV every 24 hours * Appropriate per renal function Doxycycline * 100 mg PO BID * Not a pharmacy consult Pharmacy will continue to follow and will adjust dose/frequency as necessary. Thank you.
[2019-11-03] MEDS: LEVOTHYROXINE SODIUM 25 MCG TABLET PO SCH (05:50)
[2019-11-03] MEDS: DOXYCYCLINE HYCLATE 100 MG CAP PO SCH ×2 (05:50→20:48)
[2019-11-03 06:43] LABS: Hematocrit (blood only) 37.6 % (42-52); Hemoglobin 12.9 g/dL (14.0-18.0); Mean Corpuscular Hemoglobin 33.2 pg (25-34); Mean Corpuscular Hgb Conc 34.3 g/dL (32-36); Mean Corpuscular Volume 96.9 fL (80-100); Mean Platelet Volume 10.7 fL (7.4-10.4); Platelet Count 128 K/uL (130-400); RDW Coefficient of Variation 14.3 % (11.5-14.5); Red Blood Count 3.88 M/uL (4.7-6.1); White Blood Count 6.98 K/uL (4.8-10.8)
[2019-11-03 07:15] LABS: Creatinine Clr Calc Pharmacy 91.5 ml/min; Est GFR (African American) 93.1; Est GFR (Non-African American) 80.3
[2019-11-03] MEDS ORDERED: ERTAPENEM SODIUM 1,000 MG in SODIUM CHLORIDE 0.9% 50 ML IV SCH (08:00)
[2019-11-03] MEDS: DIVALPROEX SODIUM SPRINKLE 125 MG CAP PO SCH ×3 (08:13→17:14)
[2019-11-03] MEDS: MUPIROCIN 2% OINT 22 GM TUBE INTNAS SCH ×2 (08:14→20:49)
[2019-11-03] MEDS: cloNIDine HCL 0.1 MG TAB PO SCH ×2 (08:14→20:47)
[2019-11-03] MEDS: ARIPiprazole 15 MG TAB PO SCH (08:15)
[2019-11-03] MEDS: carvediloL 12.5 MG TAB PO SCH ×2 (08:15→20:46)
[2019-11-03] MEDS: VENLAFAXINE HCL XR 75 MG CAPXR PO SCH (08:15)
[2019-11-03] MEDS: clonazePAM 0.5 MG TAB PO SCH ×2 (08:16→20:45)
[2019-11-03] MEDS: VENLAFAXINE HCL XR 37.5 MG CAPXR PO SCH (08:16)
[2019-11-03] MEDS: MULTIVITAMIN TAB PO SCH (08:16)
[2019-11-03] MEDS: AMLODIPINE BESYLATE 5 MG TAB PO SCH (08:16)
[2019-11-03] MEDS: buPROPion HCl 100 MG TABLET PO SCH ×3 (08:17→20:48)
[2019-11-03] MEDS: SENNA 8.6 MG TAB PO SCH ×2 (08:17→20:47)
[2019-11-03] MEDS: lisinopriL 20 MG TAB PO SCH (08:17)
[2019-11-03] MEDS: PANTOprazole 40 MG TAB PO SCH (08:17)
[2019-11-03] MEDS ORDERED: VANCOMYCIN HCL 1,500 MG in SODIUM CHLORIDE 0.9% 500 ML IV SCH (11:00)
--- NOTE | 2019-11-03 11:31 | Hospitalist Progress Note ---
Date of Service November 03, 2019 Assessment & Plan (1) Severe sepsis: 64-year-old male with history of intellectual disability, chronic systolic heart failure, CAD, hypertension, other problems noted below presenting with fever and abdominal pain -all symptoms has resolved Severe sepsis SIRS plus lactic acid elevation Possible sources : Left lower lobe pneumonia Viral gastroenteritis Resolved Afebrile since admission Normal white count, normal lactic acid level Blood cultures: Negative Urine culture: Negative Nasal MRSA: Positive/on mupirocin day 3 out of 5 Aspiration pneumonia no further aspiration episode speech eval appreciated Iv ABx D/dominique PO doxycycline will need 7 days tx Lower abdominal pain Symptom has resolved-tolerating diet no nausea , vomiting or abdominal pain CT abdomen and pelvis: Unrevealing GI consulted Recommend Bentyl as needed Patient denies abdominal pain today Advance diet to soft diet (Per prior hospitalist documentation: Elevated LFTs, likely NAFLD, plan for endoscopic ultrasound liver biopsy as outpatient Also patient tested positive for Cologuard as an outpatient, colonoscopy recommended, per RAMÓN Paul's discussions with patient's Sister Gladys Loera, she would like to defer colonoscopy at this point Close outpatient follow-up with GI Chronic systolic heart failure secondary to ischemic cardiomyopathy (EF 45 to 49%, TTE 2019) Stable volume status History of CAD No cardiac symptoms hypertension On l carvedilol, clonidine, lisinopril Chronic transaminitis, probable NAFLD Start mupirocin day 3 out of 5 Hyperglycemia, newly diagnosed diabetes type 2 A1c 7.4 Will need to start metformin upon discharge chronic thrombocytopenia Monitor CBC history of spina bifida intellectual impairment Mental status at baseline per caregiver DVT prophylaxis. SCDs RE thrombocytopenia Full code as per sister/POA, Ms. Gladys Loera. sister updated over phone Disposition pt noted be deconditioned during this hospital stay appreciate PT/OT eval will benefit with home PT Anticipate to return to [facility] when medically stable Admission and Anticipated Discharge Date Admission Date: October 31, 2019 Subjective doing well this morning no cough or SOB no episode of aspiration noted no fever or chills pt repeatedly says he feels fine , wants to go home Physical Exam Constitutional: WD/WN, vitals as above no acute distress Eyes: sclerae not anicteric ENMT: external ear and nose normal, oropharynx normal Respiratory: normal respiratory effort; no cough Auscultation: no crackles, no rales and no wheezes Cardiovascular: RRR, no murmur, no edema Gastrointestinal (Abdomen): Percussion/Palpation: abdomen soft; abdomen nontender Musculoskeletal: no cyanosis or clubbing, extremities motor strength 5/5 Psychiatric: Orientation: alert and oriented to person (baseline intellectual disability ) Results & Data Results & Data ([facility]) Vital Signs (Past 12 Hours) Vital Signs Temp Pulse Pulse Resp BP Pulse Ox 11/03/19 11:03 36.3 C L 76 20 157/90 H 95 11/03/19 07:24 36.6 C 73 24 150/87 H 94 11/03/19 07:17 80 11/03/19 00:47 73
[2019-11-03] MEDS: QUETIAPINE FUMARATE 100 MG TABLET PO SCH (20:47)
[2019-11-04] MEDS: LEVOTHYROXINE SODIUM 25 MCG TABLET PO SCH (06:14)
[2019-11-04] MEDS: ARIPiprazole 15 MG TAB PO SCH (08:21)
[2019-11-04] MEDS: DIVALPROEX SODIUM SPRINKLE 125 MG CAP PO SCH ×3 (08:21→17:02)
[2019-11-04] MEDS: MUPIROCIN 2% OINT 22 GM TUBE INTNAS SCH ×2 (08:22→20:20)
[2019-11-04] MEDS: carvediloL 12.5 MG TAB PO SCH ×2 (08:22→20:15)
[2019-11-04] MEDS: VENLAFAXINE HCL XR 37.5 MG CAPXR PO SCH (08:22)
[2019-11-04] MEDS: cloNIDine HCL 0.1 MG TAB PO SCH ×2 (08:22→20:15)
[2019-11-04] MEDS: PANTOprazole 40 MG TAB PO SCH (08:23)
[2019-11-04] MEDS: VENLAFAXINE HCL XR 75 MG CAPXR PO SCH (08:23)
[2019-11-04] MEDS: clonazePAM 0.5 MG TAB PO SCH ×2 (08:23→20:15)
[2019-11-04] MEDS: MULTIVITAMIN TAB PO SCH (08:23)
[2019-11-04] MEDS: AMLODIPINE BESYLATE 5 MG TAB PO SCH (08:23)
[2019-11-04] MEDS: DOXYCYCLINE HYCLATE 100 MG CAP PO SCH ×2 (08:24→20:17)
[2019-11-04] MEDS: SENNA 8.6 MG TAB PO SCH ×2 (08:24→20:17)
[2019-11-04] MEDS: lisinopriL 20 MG TAB PO SCH (08:24)
[2019-11-04] MEDS: buPROPion HCl 100 MG TABLET PO SCH ×3 (08:24→20:16)
[2019-11-04 08:42] LABS: Creatinine Clr Calc Pharmacy 87.4 ml/min; Est GFR (African American) 89.8; Est GFR (Non-African American) 77.5
[2019-11-04] MEDS ORDERED: VANCOMYCIN TROUGH ONE (10:30)
--- NOTE | 2019-11-04 17:06 | Hospitalist Progress Note ---
Date of Service November 04, 2019 Assessment & Plan (1) Severe sepsis: 64-year-old male with history of intellectual disability, chronic systolic heart failure, CAD, hypertension, other problems noted below presenting with fever and abdominal pain -all symptoms has resolved Severe sepsis SIRS plus lactic acid elevation Possible sources : Left lower lobe pneumonia Viral gastroenteritis Resolved Afebrile since admission Normal white count, normal lactic acid level Blood cultures: Negative Urine culture: Negative Nasal MRSA: Positive/on mupirocin day 3 out of 5 Aspiration pneumonia no further aspiration episode speech eval appreciated Iv ABx D/dominique PO doxycycline will need 7 days tx Lower abdominal pain Symptom has resolved-tolerating diet no nausea , vomiting or abdominal pain CT abdomen and pelvis: Unrevealing GI consulted Recommend Bentyl as needed Patient denies abdominal pain today Advance diet to soft diet (Per prior hospitalist documentation: Elevated LFTs, likely NAFLD, plan for endoscopic ultrasound liver biopsy as outpatient Also patient tested positive for Cologuard as an outpatient, colonoscopy recommended, per RAMÓN Paul's discussions with patient's Sister Gladys Loera, she would like to defer colonoscopy at this point Close outpatient follow-up with GI Chronic systolic heart failure secondary to ischemic cardiomyopathy (EF 45 to 49%, TTE 2018) Stable volume status History of CAD No cardiac symptoms hypertension On l carvedilol, clonidine, lisinopril Chronic transaminitis, probable NAFLD Start mupirocin day 3 out of 5 Hyperglycemia, newly diagnosed diabetes type 2 A1c 7.4 Will need to start metformin upon discharge chronic thrombocytopenia Monitor CBC history of spina bifida intellectual impairment Mental status at baseline per caregiver DVT prophylaxis. SCDs RE thrombocytopenia Full code as per sister/POA, Ms. Gladys Loera. sister updated over phone Disposition update given to [employer] [facility] staff Anticipate to return to long term when medically stable Admission and Anticipated Discharge Date Admission Date: October 31, 2019 Subjective still very weak and fatigued needs 1 person assist to ambulate no fever or chills no cough or SOB Physical Exam Constitutional: WD/WN, vitals as above no acute distress Eyes: sclerae not anicteric ENMT: external ear and nose normal, oropharynx normal Respiratory: normal respiratory effort; no cough Auscultation: no crackles, no rales and no wheezes Cardiovascular: RRR, no murmur, no edema Gastrointestinal (Abdomen): Percussion/Palpation: abdomen soft; abdomen nontender Musculoskeletal: no cyanosis or clubbing, extremities motor strength 5/5 Psychiatric: Orientation: alert and oriented to person (baseline intellectual disability ) Results & Data Results & Data ([facility]) Vital Signs (Past 12 Hours) Vital Signs Temp Pulse Resp BP Pulse Ox 11/04/19 15:23 36.4 C L 73 18 164/91 H 95 11/04/19 06:52 37.1 C 76 20 153/94 H
[2019-11-04] MEDS: QUETIAPINE FUMARATE 100 MG TABLET PO SCH (20:16)
[2019-11-05] MEDS: LEVOTHYROXINE SODIUM 25 MCG TABLET PO SCH (06:07)
[2019-11-05] MEDS: carvediloL 12.5 MG TAB PO SCH ×2 (08:16→20:09)
[2019-11-05] MEDS: DIVALPROEX SODIUM SPRINKLE 125 MG CAP PO SCH ×3 (08:16→16:56)
[2019-11-05] MEDS: MUPIROCIN 2% OINT 22 GM TUBE INTNAS SCH ×2 (08:16→20:12)
[2019-11-05] MEDS: cloNIDine HCL 0.1 MG TAB PO SCH ×2 (08:16→20:09)
[2019-11-05] MEDS: ARIPiprazole 15 MG TAB PO SCH (08:16)
[2019-11-05] MEDS: clonazePAM 0.5 MG TAB PO SCH ×2 (08:17→20:15)
[2019-11-05] MEDS: DOXYCYCLINE HYCLATE 100 MG CAP PO SCH ×2 (08:17→20:11)
[2019-11-05] MEDS: PANTOprazole 40 MG TAB PO SCH (08:17)
[2019-11-05] MEDS: buPROPion HCl 100 MG TABLET PO SCH ×3 (08:17→20:10)
[2019-11-05] MEDS: MULTIVITAMIN TAB PO SCH (08:17)
[2019-11-05] MEDS: SENNA 8.6 MG TAB PO SCH ×2 (08:17→20:11)
[2019-11-05] MEDS: VENLAFAXINE HCL XR 75 MG CAPXR PO SCH (08:17)
[2019-11-05] MEDS: VENLAFAXINE HCL XR 37.5 MG CAPXR PO SCH (08:17)
[2019-11-05] MEDS: AMLODIPINE BESYLATE 5 MG TAB PO SCH (08:17)
[2019-11-05] MEDS: lisinopriL 20 MG TAB PO SCH (08:17)
--- NOTE | 2019-11-05 18:46 | Hospitalist Progress Note ---
Date of Service November 05, 2019 Assessment & Plan (1) Severe sepsis: 64-year-old male with history of intellectual disability, chronic systolic heart failure, CAD, hypertension, other problems noted below presenting with fever and abdominal pain -all symptoms has resolved Severe sepsis SIRS plus lactic acid elevation Possible sources : Left lower lobe pneumonia Viral gastroenteritis Resolved Afebrile since admission Normal white count, normal lactic acid level Blood cultures: Negative Urine culture: Negative Nasal MRSA: Positive/on mupirocin day 4 out of 5 Aspiration pneumonia no further aspiration episode speech eval appreciated Iv ABx D/dominique PO doxycycline will need 7 days tx Lower abdominal pain Symptom has resolved-tolerating diet no nausea , vomiting or abdominal pain CT abdomen and pelvis: Unrevealing GI consulted Recommend Bentyl as needed Patient denies abdominal pain today Advance diet to soft diet-patient normally on mechanical soft diet due to chronic aspiration risk (Per prior hospitalist documentation: Elevated LFTs, likely NAFLD, plan for endoscopic ultrasound liver biopsy as outpatient Also patient tested positive for Cologuard as an outpatient, colonoscopy recommended, per RAMÓN Paul's discussions with patient's Sister Gladys Loera, she would like to defer colonoscopy at this point Close outpatient follow-up with GI Chronic systolic heart failure secondary to ischemic cardiomyopathy (EF 45 to 49%, TTE 2019) Stable volume status History of CAD No cardiac symptoms hypertension On carvedilol, clonidine, lisinopril Chronic transaminitis, probable NAFLD Hyperglycemia, newly diagnosed diabetes type 2 A1c 7.4 Will need to start metformin upon discharge chronic thrombocytopenia Monitor CBC history of spina bifida intellectual impairment Mental status at baseline per caregiver DVT prophylaxis. SCDs RE thrombocytopenia Full code as per sister/POA, Ms. Gladys Loera. Disposition Anticipate to return to [facility] when medically stable Admission and Anticipated Discharge Date Admission Date: October 31, 2019 Subjective Much better today, was able to ambulate with supervision No cough, no fever or chills Patient does not offer any complaint Asking repeatedly when he can go home Physical Exam Constitutional: WD/WN, vitals as above no acute distress Eyes: sclerae not anicteric ENMT: external ear and nose normal, oropharynx normal Respiratory: normal respiratory effort; no cough Auscultation: no crackles, no rales and no wheezes Cardiovascular: RRR, no murmur, no edema Gastrointestinal (Abdomen): Percussion/Palpation: abdomen soft; abdomen nontender Musculoskeletal: no cyanosis or clubbing, extremities motor strength 5/5 Psychiatric: Orientation: alert and oriented to person (baseline intellectual disability ) Results & Data Results & Data ([facility]) Vital Signs (Past 12 Hours) Vital Signs Temp Pulse Pulse Resp BP BP Pulse Ox 11/05/19 16:00 36.2 C L 74 20 158/90 H 97 11/05/19 07:05 36.8 C 70 18 156/96 H 96
[2019-11-05] MEDS: QUETIAPINE FUMARATE 100 MG TABLET PO SCH (20:10)
[2019-11-06] MEDS ORDERED: PROMETHAZINE HCL 12.5 MG/10 ML UDP PO PRN (02:02)
[2019-11-06] MEDS ORDERED: PROMETHAZINE HCL 25 MG TAB PO PRN (02:11)
[2019-11-06] MEDS: LEVOTHYROXINE SODIUM 25 MCG TABLET PO SCH (06:24)
[2019-11-06 06:39] LABS: Hematocrit (blood only) 37.9 % (42-52); Hemoglobin 13.1 g/dL (14.0-18.0); Mean Corpuscular Hemoglobin 33.2 pg (25-34); Mean Corpuscular Hgb Conc 34.6 g/dL (32-36); Mean Corpuscular Volume 96.2 fL (80-100); Mean Platelet Volume 10.6 fL (7.4-10.4); Nucleated RBC # (auto) 0.06 K/uL (0-0); Nucleated RBC % (auto) 0.6 %; Platelet Count 174 K/uL (130-400); RDW Coefficient of Variation 14.1 % (11.5-14.5); RDW Standard Deviation 49.9 fL (36.4-46.3); Red Blood Count 3.94 M/uL (4.7-6.1); White Blood Count 9.51 K/uL (4.8-10.8)
[2019-11-06 07:43] LABS: Basophils # (auto) 0.05 K/uL (0-0.2); Basophils % (auto) 0.5 %; Eosinophils # (auto) 0.25 K/uL (0-0.5); Eosinophils % (auto) 2.6 %; Immature Granulocytes # (auto) 0.88 K/uL (0.00-0.02); Immature Granulocytes % (auto) 9.3 %; Lymphocytes # (auto) 2.54 K/uL (1.2-3.4); Lymphocytes % (auto) 26.7 %; Monocytes # (auto) 0.66 K/uL (0.11-0.59); Monocytes % (auto) 6.9 %; Neutrophils # (auto) 5.13 K/uL (1.4-6.5)
[2019-11-06] MEDS: carvediloL 12.5 MG TAB PO SCH ×2 (08:24→20:58)
[2019-11-06] MEDS: DIVALPROEX SODIUM SPRINKLE 125 MG CAP PO SCH ×3 (08:24→17:35)
[2019-11-06] MEDS: VENLAFAXINE HCL XR 75 MG CAPXR PO SCH (08:24)
[2019-11-06] MEDS: MUPIROCIN 2% OINT 22 GM TUBE INTNAS SCH ×2 (08:24→21:01)
[2019-11-06] MEDS: cloNIDine HCL 0.1 MG TAB PO SCH ×2 (08:24→20:58)
[2019-11-06] MEDS: VENLAFAXINE HCL XR 37.5 MG CAPXR PO SCH (08:24)
[2019-11-06] MEDS: ARIPiprazole 15 MG TAB PO SCH (08:24)
[2019-11-06] MEDS: clonazePAM 0.5 MG TAB PO SCH ×2 (08:25→20:55)
[2019-11-06] MEDS: SENNA 8.6 MG TAB PO SCH ×2 (08:25→20:57)
[2019-11-06] MEDS: lisinopriL 20 MG TAB PO SCH (08:25)
[2019-11-06] MEDS: MULTIVITAMIN TAB PO SCH (08:25)
[2019-11-06] MEDS: AMLODIPINE BESYLATE 5 MG TAB PO SCH (08:25)
[2019-11-06] MEDS: PANTOprazole 40 MG TAB PO SCH (08:25)
[2019-11-06] MEDS: DOXYCYCLINE HYCLATE 100 MG CAP PO SCH ×2 (08:25→20:57)
[2019-11-06] MEDS: buPROPion HCl 100 MG TABLET PO SCH ×3 (08:25→20:57)
--- NOTE | 2019-11-06 17:23 | Hospitalist Progress Note ---
Date of Service November 06, 2019 Assessment & Plan (1) Severe sepsis: 64-year-old male with history of intellectual disability, chronic systolic heart failure, CAD, hypertension, other problems noted below presenting with fever and abdominal pain -all symptoms has resolved Admitted with severe sepsis SIRS plus lactic acid elevation Possible sources : Left lower lobe pneumonia Viral gastroenteritis Infection/gastroenteritis, pneumonia has resolved Afebrile since admission Normal white count, normal lactic acid level Blood cultures: Negative Urine culture: Negative Nasal MRSA: Positive/treated with nasal mupirocin day 5 out of 5 Aspiration pneumonia no further aspiration episode speech eval appreciated Is resumed with mechanical soft diet with aspiration precaution PO doxycycline will need 7 days tx Lower abdominal pain Further complaining of abdominal pain, tolerating diet Symptom has resolved-tolerating diet no nausea , vomiting or abdominal pain CT abdomen and pelvis: Unrevealing GI consult appreciated (Per prior hospitalist documentation: Elevated LFTs, likely NAFLD, plan for endoscopic ultrasound liver biopsy as outpatient Also patient tested positive for Cologuard as an outpatient, colonoscopy recommended, per RAMÓN Paul's discussions with patient's Sister Gladys Loera, she would like to defer colonoscopy at this point Close outpatient follow-up with GI Chronic systolic heart failure secondary to ischemic cardiomyopathy (EF 45 to 49%, TTE 2019) Stable volume status History of CAD No cardiac symptoms hypertension On carvedilol, clonidine, lisinopril Chronic transaminitis, probable NAFLD Hyperglycemia, newly diagnosed diabetes type 2 A1c 7.4 Patient will be started on metformin on discharge chronic thrombocytopenia Platelet count normal history of spina bifida intellectual impairment Mental status at baseline per caregiver DVT prophylaxis. SCDs Full code as per sister/POA, Ms. Gladys Loera. Sister updated over phone Disposition possible return to [facility] tomorrow Admission and Anticipated Discharge Date Admission Date: October 31, 2019 Subjective doing well has been OOB able walk in room with 1 assistance no cough no sob eager to go home Physical Exam Constitutional: WD/WN, vitals as above no acute distress Eyes: sclerae not anicteric ENMT: external ear and nose normal, oropharynx normal Respiratory: normal respiratory effort; no cough Auscultation: no crackles, no rales and no wheezes Cardiovascular: RRR, no murmur, no edema Gastrointestinal (Abdomen): Percussion/Palpation: abdomen soft; abdomen nontender Musculoskeletal: no cyanosis or clubbing, extremities motor strength 5/5 Psychiatric: Orientation: alert and oriented to person (baseline intellectual disability ) Results & Data Results & Data ([facility]) Vital Signs (Past 12 Hours) Vital Signs Temp Pulse Resp BP BP Pulse Ox 11/06/19 14:46 36.5 C 69 18 160/85 H 96 11/06/19 08:11 37.3 C 80 18 152/94 H 95
[2019-11-06] MEDS: QUETIAPINE FUMARATE 100 MG TABLET PO SCH (20:57)
[2019-11-07] MEDS: LEVOTHYROXINE SODIUM 25 MCG TABLET PO SCH (06:10)
[2019-11-07] MEDS: cloNIDine HCL 0.1 MG TAB PO SCH (08:37)
[2019-11-07] MEDS: DOXYCYCLINE HYCLATE 100 MG CAP PO SCH (08:37)
[2019-11-07] MEDS: carvediloL 12.5 MG TAB PO SCH (08:37)
[2019-11-07] MEDS: VENLAFAXINE HCL XR 75 MG CAPXR PO SCH (08:37)
[2019-11-07] MEDS: SENNA 8.6 MG TAB PO SCH (08:38)
[2019-11-07] MEDS: buPROPion HCl 100 MG TABLET PO SCH (08:38)
[2019-11-07] MEDS: lisinopriL 20 MG TAB PO SCH (08:39)
[2019-11-07] MEDS: ARIPiprazole 15 MG TAB PO SCH (08:39)
[2019-11-07] MEDS: MUPIROCIN 2% OINT 22 GM TUBE INTNAS SCH (08:39)
[2019-11-07] MEDS: DIVALPROEX SODIUM SPRINKLE 125 MG CAP PO SCH (08:40)
[2019-11-07] MEDS: AMLODIPINE BESYLATE 5 MG TAB PO SCH (08:40)
[2019-11-07] MEDS: PANTOprazole 40 MG TAB PO SCH (08:41)
[2019-11-07] MEDS: MULTIVITAMIN TAB PO SCH (08:41)
[2019-11-07] MEDS: VENLAFAXINE HCL XR 37.5 MG CAPXR PO SCH (08:41)
[2019-11-07] MEDS: clonazePAM 0.5 MG TAB PO SCH (08:44)
--- NOTE | 2019-11-07 11:38 | Hospitalist Progress Note ---
Date of Service November 07, 2019 Assessment & Plan (1) Severe sepsis: 64-year-old male with history of intellectual disability, chronic systolic heart failure, CAD, hypertension, other problems noted below presenting with fever and abdominal pain -all symptoms has resolved Admitted with severe sepsis SIRS plus lactic acid elevation Possible sources : Left lower lobe pneumonia Viral gastroenteritis Symptoms has resolved Infection/gastroenteritis, pneumonia has resolved Afebrile since admission Normal white count, normal lactic acid level Blood cultures: Negative Urine culture: Negative Nasal MRSA: Positive: Pleated eradication treatment with with nasal mupirocin day 5 out of 5 Aspiration pneumonia no further aspiration episode speech eval appreciated Is resumed with mechanical soft diet with aspiration precaution Completed p.o. doxycycline for 7 days Lower abdominal pain Further complain of abdominal pain, tolerating diet Symptom has resolved-tolerating diet no nausea , vomiting or abdominal pain CT abdomen and pelvis: Unrevealing GI consult appreciated (Per prior hospitalist documentation: Elevated LFTs, likely NAFLD, plan for endoscopic ultrasound liver biopsy as outpatient Also patient tested positive for Cologuard as an outpatient, colonoscopy recommended, per RAMÓN Paul's discussions with patient's Sister Gladys Loera, she would like to defer colonoscopy at this point Close outpatient follow-up with GI Chronic systolic heart failure secondary to ischemic cardiomyopathy (EF 45 to 49%, TTE 2019) Stable volume status History of CAD No cardiac symptoms hypertension On carvedilol, clonidine, lisinopril Chronic transaminitis, probable NAFLD Hyperglycemia, newly diagnosed diabetes type 2 A1c 7.4 Patient will be started on metformin on discharge chronic thrombocytopenia Platelet count normal history of spina bifida intellectual impairment Mental status at baseline per caregiver DVT prophylaxis. SCDs Full code as per sister/POA, Ms. Gladys Loera. Disposition Stable to be discharged back to [facility] today Admission and Anticipated Discharge Date Admission Date: October 31, 2019 Subjective Patient appears to be at his baseline, able to get out of bed, ambulate to hallway with minimumnone assistance, patient holds onto the wall railing Caregivers from [facility] present at bedside, noticed this is patient's normal gait No cough no shortness of breath no fever or chills Stable to be discharged home today Physical Exam Constitutional: WD/WN, vitals as above no acute distress Eyes: sclerae not anicteric ENMT: external ear and nose normal, oropharynx normal Respiratory: normal respiratory effort; no cough Auscultation: no crackles, no rales and no wheezes Cardiovascular: RRR, no murmur, no edema Gastrointestinal (Abdomen): Percussion/Palpation: abdomen soft; abdomen nontender Musculoskeletal: no cyanosis or clubbing, extremities motor strength 5/5 Psychiatric: Orientation: alert and oriented to person (baseline intellectual disability ) Results & Data Results & [facility] ([facility]) Vital Signs (Past 12 Hours) Vital Signs Temp Pulse Resp BP BP Pulse Ox 11/07/19 11:23 36.9 C 73 20 122/81 129/81 94 11/07/19 07:31 36.9 C 73 20 122/81 94 11/06/19 23:43 36.8 C 70 20 129/81 94
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
== END 2019-11-07 12:31 | disposition home health service (06) | DRG 871 ==
LOC: ED 19:47 → 2N 10-31 01:20 → SUATTDRO 10-31 01:20 → 2N 10-31 01:46

== ENCOUNTER 2022-04-11 19:13 | Inpatient (IN) ==
[2022-04-11] MEDS ORDERED: SODIUM CHLORIDE 0.9% 500 ML IV STA (19:22)
--- NOTE | 2022-04-11 19:27 | Emergency Department Note ---
Impression & Plan Influenza A ADMIT ED Provider Note HPI: The patient is a 66-year-old male with intellectual disability, history of CHF, who presents emergency department from [facility] with chief complaint of nausea and vomiting. Patient reportedly had several episodes of vomiting earlier today. On arrival here to the ED the patient is noted to have oxygen saturations borderline at 92% without increased work of breathing. He has been noted to have a cough over the past several days. Staff worker at the bedside states the patient had several episodes of "dark" appearing emesis. He is unable to provide me with any history otherwise. He is in no acute distress on arrival. ROS: -GI: Nausea and vomiting -Pulmonary: Cough *10 point review systems was conducted and is otherwise negative unless stated above *Outpatient medications and allergy history reviewed PE: General: Alert, obese HEENT: Normocephalic, trachea midline Eyes: Extraocular eye movement is intact, no scleral erythema Pulmonary: Mild expiratory wheeze bilaterally Cardio: Regular rate and rhythm GI: Abdomen is soft, nontender : No suprapubic tenderness MSK: No evidence of trauma or malformation of the extremities, no edema Skin: No evidence of rash Neuro: Alert, no focal deficits Psychiatric: Cooperative monitoring analyst: - An order was placed for continuous cardiac monitoring - Patient was noted to be in sinus rhythm with a rate of 105 EKG: Rate: 115 Rhythm: Sinus tachycardia Intervals: Within normal limits ST changes: No ST elevation Time: 1921 CT ABDOMEN & PELVIS with Contrast INDICATION: Nausea and vomiting. TECHNIQUE: CT acquisition of the abdomen and pelvis. Axial, sagittal and coronal reformatted images are available. Contrast: 83 mL intravenous contrast. Total DLP: 3006 mGy-cm. COMPARISON: CT abdomen and pelvis, 10/30/2019. FINDINGS: Cardiomegaly. Coronary artery calcifications. Lung bases have no consolidation. Liver is within normal limits. Gallbladder is surgically absent. No biliary ductal dilation. Spleen is normal. Pancreas is normal. Adrenal glands are normal. Symmetric enhancement of the renal parenchyma. No hydronephrosis or renal stone. Bladder is partially distended without focal wall thickening. Productive organs are normal as visualized. No free fluid in the pelvis. Appendix is not confidently seen; however, there is no evidence of right lower quadrant inflammatory stranding. Remainder of the hollow viscera are within normal limits. No evidence of obstruction. No abdominal or pelvic lymphadenopathy. No abdominal wall defect. No free intraperitoneal air. Calcific atherosclerosis of the abdominal aorta and its branches. No evidence of abdominal aortic aneurysm. No acute osseous abnormality. Multilevel degenerative changes of the spine. Compression deformity of L1 appears chronic. IMPRESSION: No acute findings. Interventions provided in ED: -DuoNeb breathing treatment, aspirin, Tamiflu Medical Decision Making: Patient presented to the emergency department from his facility at [facility] with cough, wheezing, also noted to have some emesis earlier today. CT imaging of the abdomen pelvis does not show any acute acute findings, lab work shows baseline anemia, he has not had any emesis here, I have low suspicion at this time for acute blood loss given his hemodynamic stability and stable hemoglobin. EKG does not show any acute ischemic changes, high-sensitivity troponin level is elevated at approximately 60, repeat level is 115. Patient has not had any complaint of chest pain per staff, he denies any chest pain on my exam. He is a limited historian however. His EKG does not show any evidence of ST elevation. Influenza A testing is positive. Chest x-ray does not show any evidence of any acute process. Patient was given aspirin in the ED. He was also given Ativan as he did have some agitation while awaiting his disposition. Patient has been saturating well on room air throughout his stay, he has had some wheezing which did improve with DuoNeb breathing treatment, I feel that his symptoms are secondary to influenza A, possibly an element of myocarditis, low suspicion for PE or ACS. Given the elevated troponin level and influenza A positive status, I do feel the patient needs to be admitted for trending of troponin levels and further care. Staff member from [facility] at the bedside was updated and aware. Patient was initiated on Tamiflu, given aspirin, case was discussed with the on- call hospitalist, Dr. Wright, and the patient was admitted in stable condition for further management. Diagnosis: 1. Influenza A infection 2. Acute bronchospasm 3. Elevated high-sensitivity troponin level 4. Agitation, acute 5. 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 SIGNS CONSENTS MRSA (methicillin resistant Staphylococcus aureus) carrier Myocardial infarction Remote hx per records > medically managed Obesity Severe anxiety Spina bifida Thrombocytopenia Chronic thrombocytopenia, baseline platelets low 100s per chart review Vocal cord paralysis, unilateral complete Surgical History H/O tooth extraction History of bronchoscopy Flexible bronchoscopy with BAL (02/04/18): Grade view 1, Elective glidescope #4, ETT 8.5 at [facility] (done for aspiration PNA) History of colonoscopy EGD/colonoscopy (12/07/19): MAC sedation at [facility] History of esophagogastroduodenoscopy (EGD) History of laparoscopic cholecystectomy Laparoscopic cholecystectomy [address] Wolff Family History Other No significant family history Social History Smoking Status: Never smoker Second Hand Exposure: No; Hx Alcohol Use: No Hx Substance Use: No Preferred Language: Cameroonian Communication Ability: Impaired Line Service Technician Required: No Beliefs That Will Affect Care: None marital status: Single Current Living Situation: Personal Care Facility Current Living Situation Comment: [facility] current occupational status: disabled Feels Safe at Home: Yes Assistive Devices: Wheelchair Allergies Allergies Allergy/AdvReac Type Severity Reaction Status Date / Time terbinafine Allergy Mild RASH ON Verified 04/11/22 22:37 ARM? Penicillins Allergy Unknown Family hx Verified 04/11/22 22:37 of allergy Home Meds Home Medications Medication Instructions Recorded Confirmed clonidine HCl 0.2 mg tablet 0.2 mg PO BID 02/01/18 04/11/22 sennosides 8.6 mg tablet (senna) 8.6 mg PO BID 09/21/18 04/11/22 clonazepam 0.5 mg tablet 0.25 mg PO BID 09/30/18 04/11/22 furosemide 20 mg tablet 20 mg PO Q OTHER DAY 06/17/19 04/11/22 bupropion HCl 300 mg 24 hr tablet, 300 mg PO QAM 05/05/20 04/11/22 extended release aspirin 81 mg chewable tablet 81 mg PO QAM 06/09/20 04/11/22 aripiprazole 15 mg tablet 15 mg PO QAM 07/31/20 04/11/22 buspirone 15 mg tablet 15 mg PO BID 07/31/20 04/11/22 quetiapine 50 mg tablet (Seroquel) 50 mg PO TID 07/31/20 04/11/22 doxepin 10 mg capsule 10 mg PO HS 02/07/21 04/11/22 omeprazole 40 mg capsule,delayed 40 mg PO DAILYBB 05/21/21 04/11/22 release amlodipine 2.5 mg tablet 2.5 mg PO QAM 04/11/22 04/11/22 carvedilol 6.25 mg tablet 6.25 mg PO BID 04/11/22 04/11/22 divalproex 500 mg tablet,extended 1,500 mg PO HS 04/11/22 04/11/22 release 24 hr furosemide 40 mg tablet 40 mg PO Q OTHER DAY 04/11/22 04/11/22 levothyroxine 75 mcg tablet 75 mcg PO DAILYBB 04/11/22 04/11/22 lisinopril 10 mg tablet 10 mg PO DAILY 04/11/22 04/11/22 metformin 850 mg tablet 850 mg PO BID 04/11/22 04/11/22 multivitamin (Daily-Ezeikel tablet) 1 tab PO QAM 04/11/22 04/11/22 risperidone 0.25 mg tablet 0.25 mg PO DAILY 04/11/22 04/11/22 venlafaxine 37.5 mg 37.5 mg PO QAM 04/11/22 04/11/22 capsule,extended release 24 hr venlafaxine 75 mg capsule,extended 75 mg PO QAM 04/11/22 04/11/22 release 24 hr Previous Rx's Medication Instructions Recorded lancets (Lancets,Thin) #50 ea 11/07/19 Results & Data (ED) Vital Signs Vital Signs - 24 hr 04/11/22 19:45 04/11/22 19:45 04/11/22 19:45 Temperature 37.1 C Temperature Source Oral Pulse Rate 116 H Pulse Rate [Apical] Pulse Rate from SpO2 Sensor Respiratory Rate 22 Blood Pressure 164/92 H Blood Pressure [Right Arm] Blood Pressure Mean 116 Blood Pressure Mean [Right Arm] Pulse Oximetry 91 91 Oxygen Delivery Method Room Air Room Air Room Air Sepsis Recent Fever Within 48 Hours Yes Sepsis New/Unexplained Change in Mental Status No Sepsis Action Taken by Nursing No Action Required 04/11/22 19:51 04/11/22 21:21 04/11/22 22:06 Temperature Temperature Source Pulse Rate 109 H Pulse Rate [Apical] 109 H Pulse Rate from SpO2 Sensor 108 H Respiratory Rate 22 17 Blood Pressure 153/85 H Blood Pressure [Right Arm] 163/78 H Blood Pressure Mean 107 Blood Pressure Mean [Right Arm] 106 Pulse Oximetry 95 94 Oxygen Delivery Method Room Air Room Air Sepsis Recent Fever Within 48 Hours Sepsis New/Unexplained Change in Mental Status Sepsis Action Taken by Nursing 04/12/22 01:05 Temperature Temperature Source Pulse Rate Pulse Rate [Apical] 116 H Pulse Rate from SpO2 Sensor Respiratory Rate 22 Blood Pressure Blood Pressure [Right Arm] 161/90 H Blood Pressure Mean Blood Pressure Mean [Right Arm] 113 Pulse Oximetry 93 Oxygen Delivery Method Room Air Sepsis Recent Fever Within 48 Hours Sepsis New/Unexplained Change in Mental Status Sepsis Action Taken by Nursing Laboratory Data Result diagrams: 04/11/22 19:40 04/11/22 19:40 Lab Results 04/11/22 04/11/22 04/11/22 Range/Units 19:40 19:40 19:40 WBC 5.98 (4.8-10.8) K/ul RBC 3.41 L (4.63-6.08) M/uL Hgb 11.0 L (14.0-18.0) g/dl Hct 31.8 L (40.1-51.0) % MCV 93.3 (80.0-100.0) fL MCH 32.3 (25.0-34.0) pg MCHC 34.6 (32.0-36.0) g/dL RDW Std Deviation 46.9 H (36.4-46.3) fL RDW Coeff of Josiah 13.8 (11.5-14.5) % Plt Count 104 L (130-400) K/uL MPV 11.4 (9.4-12.4) fL Immature Gran % (Auto) 0.7 % Neut % (Auto) 74.7 % Lymph % (Auto) 7.5 % Edmunds % (Auto) 15.9 % Eos % (Auto) 0.7 % Baso % (Auto) 0.5 % Neut # (Auto) 4.47 (1.4-6.5) K/uL Lymph # (Auto) 0.45 L (1.2-3.4) K/uL Edmunds # (Auto) 0.95 H (0.24-0.82) K/uL Eos # (Auto) 0.04 (0-0.50) K/uL Baso # (Auto) 0.03 (0-0.2) K/uL Immature Gran # (Auto) 0.04 H (0.00-0.02) K/uL Absolute Nucleated RBC 0.02 H (0-0) K/uL Nucleated RBC % (auto) 0.3 % PT 11.9 (9.0-12.0) Seconds INR 1.1 (0.9-1.1) APTT 26.8 (21.0-31.0) Seconds PTT Ratio 1.0 VBG pH (7.36-7.41) VBG pCO2 (38-50) mmHg VBG pO2 mmHg VBG HCO3 mmol/L VBG O2 Saturation % VBG Base Excess mEq/L Sodium 134 L (136-145) mmol/L Potassium 4.3 (3.5-5.1) mmol/L Chloride 102 (98-107) mmol/L Carbon Dioxide 23 (21-32) mmol/L Anion Gap 9 (3-11) BUN 21 (6-23) mg/dl Creatinine 1.17 (0.6-1.4) mg/dl Est Cr Clr Drug Dosing Not Reportable Est GFR ( Amer) 75.9 ml/min Est GFR (Non-Af Amer) 65.5 ml/min BUN/Creatinine Ratio 17.9 (10-20) Glucose 104 H (70-99(Fasting)) mg/dl Calcium 9.4 (8.5-10.1) mg/dl Total Bilirubin 0.4 (0.2-1.0) mg/dl AST 183 H (13-39) U/L ALT 133 H (7-52) U/L Alkaline Phosphatase 49 (34-104) U/L Troponin I High Sens 59.9 H* (0-20) pg/ml B-Natriuretic Peptide (0-100) pg/ml Total Protein 7.6 (6.0-8.3) gm/dl Albumin 3.7 (3.4-5.0) gm/dl Globulin 3.9 (2.5-4.0) gm/dl Albumin/Globulin Ratio 0.9 (0.9-2) Nasal Influ A H1 2008 PCR (NotDetected) Adenovirus (PCR) (NotDetected) B. pertussis DNA (PCR) (NotDetected) B.parapertussis DNA PCR (NotDetected) C. pneumoniae DNA (PCR) (NotDetected) Coronavirus OC43 (PCR) (NotDetected) Coronavirus HKU1 (PCR) (NotDetected) Coronavirus 229E (PCR) (NotDetected) SARS-CoV-2 (PCR) (NotDetected) Coronavirus NL63 (PCR) (NotDetected) Human Metapneumovir PCR (NotDetected) Influenza Type B (PCR) (NotDetected) M. pneumoniae (PCR) (NotDetected) Parainfluenza 1 (PCR) (NotDetected) Parainfluenza 2 (PCR) (NotDetected) Parainfluenza 3 (PCR) (NotDetected) Parainfluenza 4 (PCR) (NotDetected) RSV (PCR) (NotDetected) Entero/Rhino (PCR) (NotDetected) 04/11/22 04/11/22 04/11/22 Range/Units 19:40 19:40 20:35 WBC (4.8-10.8) K/ul RBC (4.63-6.08) M/uL Hgb (14.0-18.0) g/dl Hct (40.1-51.0) % MCV (80.0-100.0) fL MCH (25.0-34.0) pg MCHC (32.0-36.0) g/dL RDW Std Deviation (36.4-46.3) fL RDW Coeff of Josiah (11.5-14.5) % Plt Count (130-400) K/uL MPV (9.4-12.4) fL Immature Gran % (Auto) % Neut % (Auto) % Lymph % (Auto) % Edmunds % (Auto) % Eos % (Auto) % Baso % (Auto) % Neut # (Auto) (1.4-6.5) K/uL Lymph # (Auto) (1.2-3.4) K/uL Edmunds # (Auto) (0.24-0.82) K/uL Eos # (Auto) (0-0.50) K/uL Baso # (Auto) (0-0.2) K/uL Immature Gran # (Auto) (0.00-0.02) K/uL Absolute Nucleated RBC (0-0) K/uL Nucleated RBC % (auto) % PT (9.0-12.0) Seconds INR (0.9-1.1) APTT (21.0-31.0) Seconds PTT Ratio VBG pH 7.43 H (7.36-7.41) VBG pCO2 33 L (38-50) mmHg VBG pO2 52 mmHg VBG HCO3 22 mmol/L VBG O2 Saturation 83.3 % VBG Base Excess -1.9 mEq/L Sodium (136-145) mmol/L Potassium (3.5-5.1) mmol/L Chloride (98-107) mmol/L Carbon Dioxide (21-32) mmol/L Anion Gap (3-11) BUN (6-23) mg/dl Creatinine (0.6-1.4) mg/dl Est Cr Clr Drug Dosing Est GFR ( Amer) ml/min Est GFR (Non-Af Amer) ml/min BUN/Creatinine Ratio (10-20) Glucose (70-99(Fasting)) mg/dl Calcium (8.5-10.1) mg/dl Total Bilirubin (0.2-1.0) mg/dl AST (13-39) U/L ALT (7-52) U/L Alkaline Phosphatase (34-104) U/L Troponin I High Sens (0-20) pg/ml B-Natriuretic Peptide 61 (0-100) pg/ml Total Protein (6.0-8.3) gm/dl Albumin (3.4-5.0) gm/dl Globulin (2.5-4.0) gm/dl Albumin/Globulin Ratio (0.9-2) Nasal Influ A H1 2008 PCR DETECTED A* (NotDetected) Adenovirus (PCR) Not Detected (NotDetected) B. pertussis DNA (PCR) Not Detected (NotDetected) B.parapertussis DNA PCR Not Detected (NotDetected) C. pneumoniae DNA (PCR) Not Detected (NotDetected) Coronavirus OC43 (PCR) Not Detected (NotDetected) Coronavirus HKU1 (PCR) Not Detected (NotDetected) Coronavirus 229E (PCR) Not Detected (NotDetected) SARS-CoV-2 (PCR) Not Detected (NotDetected) Coronavirus NL63 (PCR) Not Detected (NotDetected) Human Metapneumovir PCR Not Detected (NotDetected) Influenza Type B (PCR) Not Detected (NotDetected) M. pneumoniae (PCR) Not Detected (NotDetected) Parainfluenza 1 (PCR) Not Detected (NotDetected) Parainfluenza 2 (PCR) Not Detected (NotDetected) Parainfluenza 3 (PCR) Not Detected (NotDetected) Parainfluenza 4 (PCR) Not Detected (NotDetected) RSV (PCR) Not Detected (NotDetected) Entero/Rhino (PCR) Not Detected (NotDetected) 04/11/22 Range/Units 22:09 WBC (4.8-10.8) K/ul RBC (4.63-6.08) M/uL Hgb (14.0-18.0) g/dl Hct (40.1-51.0) % MCV (80.0-100.0) fL MCH (25.0-34.0) pg MCHC (32.0-36.0) g/dL RDW Std Deviation (36.4-46.3) fL RDW Coeff of Josiah (11.5-14.5) % Plt Count (130-400) K/uL MPV (9.4-12.4) fL Immature Gran % (Auto) % Neut % (Auto) % Lymph % (Auto) % Edmunds % (Auto) % Eos % (Auto) % Baso % (Auto) % Neut # (Auto) (1.4-6.5) K/uL Lymph # (Auto) (1.2-3.4) K/uL Edmunds # (Auto) (0.24-0.82) K/uL Eos # (Auto) (0-0.50) K/uL Baso # (Auto) (0-0.2) K/uL Immature Gran # (Auto) (0.00-0.02) K/uL Absolute Nucleated RBC (0-0) K/uL Nucleated RBC % (auto) % PT (9.0-12.0) Seconds INR (0.9-1.1) APTT (21.0-31.0) Seconds PTT Ratio VBG pH (7.36-7.41) VBG pCO2 (38-50) mmHg VBG pO2 mmHg VBG HCO3 mmol/L VBG O2 Saturation % VBG Base Excess mEq/L Sodium (136-145) mmol/L Potassium (3.5-5.1) mmol/L Chloride (98-107) mmol/L Carbon Dioxide (21-32) mmol/L Anion Gap (3-11) BUN (6-23) mg/dl Creatinine (0.6-1.4) mg/dl Est Cr Clr Drug Dosing Est GFR ( Amer) ml/min Est GFR (Non-Af Amer) ml/min BUN/Creatinine Ratio (10-20) Glucose (70-99(Fasting)) mg/dl Calcium (8.5-10.1) mg/dl Total Bilirubin (0.2-1.0) mg/dl AST (13-39) U/L ALT (7-52) U/L Alkaline Phosphatase (34-104) U/L Troponin I High Sens 115.9 H* D (0-20) pg/ml B-Natriuretic Peptide (0-100) pg/ml Total Protein (6.0-8.3) gm/dl Albumin (3.4-5.0) gm/dl Globulin (2.5-4.0) gm/dl Albumin/Globulin Ratio (0.9-2) Nasal Influ A H1 2009 PCR (NotDetected) Adenovirus (PCR) (NotDetected) B. pertussis DNA (PCR) (NotDetected) B.parapertussis DNA PCR (NotDetected) C. pneumoniae DNA (PCR) (NotDetected) Coronavirus OC43 (PCR) (NotDetected) Coronavirus HKU1 (PCR) (NotDetected) Coronavirus 229E (PCR) (NotDetected) SARS-CoV-2 (PCR) (NotDetected) Coronavirus NL63 (PCR) (NotDetected) Human Metapneumovir PCR (NotDetected) Influenza Type B (PCR) (NotDetected) M. pneumoniae (PCR) (NotDetected) Parainfluenza 1 (PCR) (NotDetected) Parainfluenza 2 (PCR) (NotDetected) Parainfluenza 3 (PCR) (NotDetected) Parainfluenza 4 (PCR) (NotDetected) RSV (PCR) (NotDetected) Entero/Rhino (PCR) (NotDetected) Administered Medications Discontinued Medications Albuterol (Albut/Ipratrop 3mg/0.5mg Neb 3 Ml Vial) 3 ml NEB NOW STA; Protocol Stop: 04/11/22 22:31 Last Admin: 04/11/22 22:37 Dose: 3 ml Documented By: CAROLA Aspirin (Aspirin Chew 324 Mg) 324 mg PO NOW STA Stop: 04/12/22 00:21 Last Admin: 04/12/22 00:57 Dose: 324 mg Documented By: CAROLA Sodium Chloride (Nss) 500 mls @ 999 mls/hr IV .Q31M STA Stop: 04/11/22 19:52 Last Infusion: 04/11/22 20:20 Dose: 0 mls/hr Documented By: Admin: 04/11/22 19:43 Dose: 999 mls/hr Documented By: CAROLA Ioversol (Optiray 350 100ml) 83 ml IV ONCE ONE Stop: 04/11/22 21:52 Last Admin: 04/11/22 21:51 Dose: 83 ml Documented By: STEFANY Lorazepam (Lorazepam 2 Mg/1 Ml Vial) 1 mg IV NOW STA Stop: 04/11/22 23:06 Last Admin: 04/11/22 23:14 Dose: 1 mg Documented By: CAROLA Imaging Data Radiologist's Impression: Chest X-Ray 04/11/22 19:22 XR chest 1V portable HISTORY: Dyspnea/cough COMPARISON: Chest 11/02/2019. FINDINGS: The cardiac silhouette remains enlarged. No pneumothorax. No pleural effusions. Old, healed left clavicle fracture again noted. A few bibasilar linear densities favor subsegmental atelectasis. Otherwise, no new focal lung consolidations to suggest a pneumonia. No evidence for pulmonary edema. There are old, healed left-sided rib fractures. Mild elevation of the right hemidiaphragm remains unchanged. IMPRESSION: No significant change compared to the prior study. No acute process. ACT 112: Negative or not required by law. Electronically signed by: Red Wiley M.D. 04/11/2022 8:29 PM Discharge Plan Visit Data Chief Complaint: Shortness of Breath/Dyspnea Stated Complaint: COUGHING W/ WHEEZES ED Provider: Ameya Patel Discharge Problem: Influenza A Forms Stand Alone Forms: [facility] Prescriptions Prescriptions: No Action clonidine HCl 0.2 mg tablet 0.2 mg PO BID Rx Instructions: 8a & 8p clonazepam 0.5 mg tablet 0.25 mg PO BID Rx Instructions: 8a & 8p aspirin 81 mg Tablet,Chewable 81 mg PO QAM sennosides [senna] 8.6 mg Tablet 8.6 mg PO BID furosemide 20 mg tablet 20 mg PO Q OTHER DAY Rx Instructions: alternate with 20 mg (DME) lancets [Lancets,Thin] Misc See Rx Instructions .ROUTE .MEDSUPPLY Qty: 50 2RF Rx Instructions: As directed bupropion HCl 300 mg tablet extended release 24 hr 300 mg PO QAM buspirone 15 mg Tablet 15 mg PO BID aripiprazole 15 mg Tablet 15 mg PO QAM quetiapine [Seroquel] 50 mg Tablet 50 mg PO TID Rx Instructions: 8am,2pm,8pm doxepin 10 mg Capsule 10 mg PO HS omeprazole 40 mg Capsule,Delayed Release(Dr/Ec) 40 mg PO DAILYBB Rx Instructions: 7am carvedilol 6.25 mg tablet 6.25 mg PO BID amlodipine 2.5 mg tablet 2.5 mg PO QAM multivitamin [Daily-Ezekiel] Tablet 1 tab PO QAM furosemide 40 mg tablet 40 mg PO Q OTHER DAY Rx Instructions: alternate with 20 mg lisinopril 10 mg tablet 10 mg PO DAILY venlafaxine 37.5 mg capsule,extended release 24hr 37.5 mg PO QAM venlafaxine 75 mg capsule,extended release 24hr 75 mg PO QAM metformin 850 mg tablet 850 mg PO BID risperidone 0.25 mg tablet 0.25 mg PO DAILY levothyroxine 75 mcg tablet 75 mcg PO DAILYBB divalproex 500 mg tablet extended release 24 hr 1,500 mg PO HS Referrals Referrals: Tim Swenson, [Primary Care Provider] -
[2022-04-11 20:02] LABS: Hematocrit (blood only) 31.8 % (40.1-51.0); Mean Corpuscular Hemoglobin 32.3 pg (25.0-34.0); Mean Corpuscular Hgb Conc 34.6 g/dL (32.0-36.0); Mean Corpuscular Volume 93.3 fL (80.0-100.0); Mean Platelet Volume 11.4 fL (9.4-12.4); Nucleated RBC # (auto) 0.02 K/uL (0-0); Nucleated RBC % (auto) 0.3 %; Platelet Count 104 K/uL (130-400); RDW Coefficient of Variation 13.8 % (11.5-14.5); RDW Standard Deviation 46.9 fL (36.4-46.3); Red Blood Count 3.41 M/uL (4.63-6.08); White Blood Count 5.98 K/ul (4.8-10.8)
[2022-04-11 20:12] LABS: INR 1.1 (0.9-1.1); Partial Thromboplastin Time 26.8 Seconds (21.0-31.0); Prothrombin Time 11.9 Seconds (9.0-12.0)
[2022-04-11 20:20] LABS: Basophils # (auto) 0.03 K/uL (0-0.2); Basophils % (auto) 0.5 %; Eosinophils # (auto) 0.04 K/uL (0-0.50); Eosinophils % (auto) 0.7 %; Immature Granulocytes # (auto) 0.04 K/uL (0.00-0.02); Immature Granulocytes % (auto) 0.7 %; Lymphocytes # (auto) 0.45 K/uL (1.2-3.4); Lymphocytes % (auto) 7.5 %; Monocytes # (auto) 0.95 K/uL (0.24-0.82); Monocytes % (auto) 15.9 %; Neutrophils # (auto) 4.47 K/uL (1.4-6.5); Neutrophils % (auto) 74.7 %
--- NOTE | 2022-04-11 20:30 | XRay Report ---
XR chest 1V portable HISTORY: Dyspnea/cough COMPARISON: Chest 11/02/2019. FINDINGS: The cardiac silhouette remains enlarged. No pneumothorax. No pleural effusions. Old, healed left clavicle fracture again noted. A few bibasilar linear densities favor subsegmental atelectasis. Otherwise, no new focal lung consolidations to suggest a pneumonia. No evidence for pulmonary edema. There are old, healed left-sided rib fractures. Mild elevation of the right hemidiaphragm remains un changed. IMPRESSION: No significant change compared to the prior study. No acute process. ACT 112: Negative or not required by law. Electronically signed by: Red Wiley M.D. 04/11/2022 8:29 PM
[2022-04-11 20:35] LABS: Alanine Aminotransferase 133 U/L (7-52); Albumin Globulin Ratio 0.9 (0.9-2); Albumin Level 3.7 gm/dl (3.4-5.0); Alkaline Phosphatase 49 U/L (34-104); Anion Gap 9 (3-11); Aspartate Aminotransferase 183 U/L (13-39); BUN Creatinine Ratio 17.9 (10-20); Bilirubin,Total 0.4 mg/dl (0.2-1.0); Blood Urea Nitrogen 21 mg/dl (6-23); Calcium 9.4 mg/dl (8.5-10.1); Carbon Dioxide 23 mmol/L (21-32); Chloride 102 mmol/L (98-107); Est GFR (African American) 75.9 ml/min; Est GFR (Non-African American) 65.5 ml/min; Globulin 3.9 gm/dl (2.5-4.0); Glucose 104 mg/dl (70-99(Fasting)); Potassium 4.3 mmol/L (3.5-5.1); Sodium 134 mmol/L (136-145); Total Protein 7.6 gm/dl (6.0-8.3)
[2022-04-11 20:53] LABS: Troponin I High Sensitivity 59.9 pg/ml (0-20)
[2022-04-11 20:55] LABS: Base Excess VBG -1.9 mEq/L; HCO3 VBG 22 mmol/L; Oxygen Saturation VBG 83.3 %; PCO2 VBG 33 mmHg (38-50); PO2 VBG 52 mmHg; pH VBG 7.43 (7.36-7.41)
[2022-04-11 20:57] LABS: Adenovirus PCR Not Detected (NotDetected); Bordetella parapertussis PCR Not Detected (NotDetected); Bordetella pertussis PCR Not Detected (NotDetected); Chlamydia pneumoniae PCR Not Detected (NotDetected); Coronavirus 229E PCR Not Detected (NotDetected); Coronavirus CoV-2 (COVID19)PCR Not Detected (NotDetected); Coronavirus HKU1 PCR Not Detected (NotDetected); Coronavirus NL63 PCR Not Detected (NotDetected); Coronavirus OC43PCR Not Detected (NotDetected); Human Metapneumovirus PCR Not Detected (NotDetected); Influenza B PCR Not Detected (NotDetected); Mycoplasma pneumoniae PCR Not Detected (NotDetected); Parainfluenza Virus 1 PCR Not Detected (NotDetected); Parainfluenza Virus 2 PCR Not Detected (NotDetected); Parainfluenza Virus 3 PCR Not Detected (NotDetected); Parainfluenza Virus 4 PCR Not Detected (NotDetected); Respiratory Syncytial VirusPCR Not Detected (NotDetected); Rhinovirus/Enterovirus PCR Not Detected (NotDetected)
[2022-04-11 21:03] LABS: Influenza A (H1 2009) PCR DETECTED (NotDetected)
[2022-04-11] MEDS ORDERED: OPTIRAY 350 100ml IV ONE (21:51)
[2022-04-11] MEDS ORDERED: ALBUT/IPRATROP 3MG/0.5MG NEB 3 ML VIAL NEB STA (22:30)
[2022-04-11] MEDS ORDERED: LORazepam 2 MG/1 ML VIAL IV STA (23:05)
[2022-04-12] MEDS ORDERED: ASPIRIN CHEW 324 MG PO STA (00:20)
[2022-04-12] MEDS ORDERED: OSELTAMIVIR PHOSPHATE 75 MG CAP PO STA (01:18)
[2022-04-12] MEDS ORDERED: MAGNESIUM HYDROXIDE SUSP 30 ML UDC PO PRN (02:49)
[2022-04-12] MEDS ORDERED: POLYETHYLENE (MIRALAX) 17 GM PACK PO PRN (02:49)
[2022-04-12] MEDS ORDERED: ALUMINUM/MAGNESIUM SUSP 30 ML UDC PO PRN (02:49)
--- NOTE | 2022-04-12 03:06 | History & Physical Report ---
Date of Service April 12, 2022 Assessment & Plan (1) Influenza A: Plan Nausea, vomiting Influenza A Patient brought in with complaint of nausea, vomiting, fever, shortness of breath, wheezing Patient found to be influenza A positive at admission, stable at bedside during exam Admitting CXR with no acute finding, admitting CT abdomen pelvis with no acute pathology, follow final reads on CT abdomen and pelvis. No Vomiting while in the ED. Status post half liter normal saline in the ED. Continue Tamiflu started in the ED. Nebs as needed. Supportive management. Zofran as needed. Gentle ivf, lasix on hold. Mild hyponatremia: Likely due to decreased appetite, follow labs. Likely demand ischemia: Troponin elevated, minimally up trended, trend troponins, likely secondary to acute viral illness. Patient with no chest pain. DVT prophylaxis: Heparin subcu DNR/DNI History of Present Illness Chief Complaint: Nausea, vomiting Primary Care Provider: Tim Swenson DO 66-year-old male with PMH of intellectual disability, HLD, T2DM, [place], chronic ischemic heart disease, ASCVD, HTN, heart failure, reflux esophagitis, dental caries, GERD, BPH, arthritis of hip, spina bifida, depression with anxiety [facility] [place] [facility] with chief complaint of nausea and vomiting. Patient was alert and oriented x2 but seems unreliable for history. Staff/varnish dipper at bedside who reported nausea and multiple episodes of greenish vomiting on the day of arrival. He was not able to keep down anything. At baseline patient is generally alert and oriented and is able to complain/make demands. Patient also was noted to be short of breath with temperature of 102 Fahrenheit and weak along with decreased appetite. Patient is wheelchair-bound per his varnish dipper. On questioning patient, patient denied any headache or dizziness or chest pain or feeling of heart racing or belly pain. Patient not able to comment why he was brought to the hospital and was not sure about the events during the day that brought him to the hospital. No smoking/alcohol/recreational drug use per varnish dipper. DNR/DNI per varnish dipper. Item Processor Thiago Orellana had recent medication list on patient, which was reviewed. Allergies Allergy/AdvReac Type Severity Reaction Status Date / Time terbinafine Allergy Mild RASH ON Verified 04/11/22 22:37 ARM? Penicillins Allergy Unknown Family hx Verified 04/11/22 22:37 of allergy Home Medications Medication Instructions Recorded Confirmed Type clonidine HCl 0.2 mg tablet 0.2 mg PO BID 02/01/18 04/11/22 History sennosides 8.6 mg tablet (senna) 8.6 mg PO BID 09/21/18 04/11/22 History clonazepam 0.5 mg tablet 0.25 mg PO BID 09/30/18 04/11/22 History furosemide 20 mg tablet 20 mg PO Q OTHER DAY 06/17/19 04/11/22 History lancets (Lancets,Thin) #50 ea 11/07/19 04/11/22 Rx bupropion HCl 300 mg 24 hr tablet, 300 mg PO QAM 05/05/20 04/11/22 History extended release aspirin 81 mg chewable tablet 81 mg PO QAM 06/09/20 04/11/22 History aripiprazole 15 mg tablet 15 mg PO QAM 07/31/20 04/11/22 History buspirone 15 mg tablet 15 mg PO BID 07/31/20 04/11/22 History quetiapine 50 mg tablet (Seroquel) 50 mg PO TID 07/31/20 04/11/22 History doxepin 10 mg capsule 10 mg PO HS 02/07/21 04/11/22 History omeprazole 40 mg capsule,delayed 40 mg PO DAILYBB 05/21/21 04/11/22 History release amlodipine 2.5 mg tablet 2.5 mg PO QAM 04/11/22 04/11/22 History carvedilol 6.25 mg tablet 6.25 mg PO BID 04/11/22 04/11/22 History divalproex 500 mg tablet,extended 1,500 mg PO HS 04/11/22 04/11/22 History release 24 hr furosemide 40 mg tablet 40 mg PO Q OTHER DAY 04/11/22 04/11/22 History levothyroxine 75 mcg tablet 75 mcg PO DAILYBB 04/11/22 04/11/22 History lisinopril 10 mg tablet 10 mg PO DAILY 04/11/22 04/11/22 History metformin 850 mg tablet 850 mg PO BID 04/11/22 04/11/22 History multivitamin (Daily-Ezekiel tablet) 1 tab PO QAM 04/11/22 04/11/22 History risperidone 0.25 mg tablet 0.25 mg PO DAILY 04/11/22 04/11/22 History venlafaxine 37.5 mg 37.5 mg PO QAM 04/11/22 04/11/22 History capsule,extended release 24 hr venlafaxine 75 mg capsule,extended 75 mg PO QAM 04/11/22 04/11/22 History release 24 hr Past Med/Surg History Medical History Anemia Arthritis Cataract Cerebral palsy Chronic ischemic heart disease Combative behavior Coronary artery disease Diabetes mellitus, type 2 Dysphagia Fall Fall risk GERD (gastroesophageal reflux disease) Hyperlipidemia Hypertension Hypothyroidism Impulse control disorder Intermittent explosive disorder [place] Moderate intellectual disabilities sister/POA -ASHLEY IRENE [phone]-[facility]IN [facility] 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 SIGNS CONSENTS MRSA (methicillin resistant Staphylococcus aureus) carrier Myocardial infarction Remote hx per records > medically managed Obesity Severe anxiety Spina bifida Thrombocytopenia Chronic thrombocytopenia, baseline platelets low 100s per chart review Vocal cord paralysis, unilateral complete Surgical History H/O tooth extraction History of bronchoscopy Flexible bronchoscopy with BAL (02/04/18): Grade view 1, Elective glidescope #4, ETT 8.5 at [facility] (done for aspiration PNA) History of colonoscopy EGD/colonoscopy (12/07/19): MAC sedation at [facility] History of esophagogastroduodenoscopy (EGD) History of laparoscopic cholecystectomy Laparoscopic cholecystectomy [address] Wolff Family History Other No significant family history Social History Smoking Status: Never smoker Second Hand Exposure: No; Hx Alcohol Use: No Hx Substance Use: No Preferred Language: Arabic Communication Ability: Impaired In Service Coordinator Required: No Beliefs That Will Affect Care: None marital status: Single Current Living Situation: Personal Care Facility Current Living Situation Comment: [facility] current occupational status: disabled Feels Safe at Home: Yes Assistive Devices: Wheelchair Review of Systems Review of Systems: Negative otherwise mentioned in HPI. Physical Exam Physical Exam: GENERAL: Alert and oriented. NAD, on RA. HEENT: No pallor, no icterus. Pupils equal, round and reactive to light. Oral mucosa moist. NECK: No JVD, no neck masses. HEART: S1 and S2 heard. tachycardia. No murmur, no gallop. RESPIRATORY SYSTEM: Normal AP diameter. No accessory muscle use. No wheezing, no crackles. ABDOMEN: Soft, bowel sounds present, nontender, no distention. CENTRAL NERVOUS SYSTEM: No facial droop. Speech is clear. Obeys simple commands. Moves extremities. EXTREMITIES: No edema, no erythema seen. Results & Data Results & Data ([facility]) Vital Signs (Past 12 Hours) Vital Signs Temp Pulse Pulse Resp BP BP Pulse Ox 04/12/22 01:05 116 H 22 161/90 H 93 04/11/22 22:06 109 H 17 153/85 H 94 04/11/22 21:21 109 H 22 163/78 H 95 04/11/22 19:51 04/11/22 19:45 04/11/22 19:45 91 04/11/22 19:45 37.1 C 116 H 22 164/92 H 91 O2 Del Method 04/12/22 01:05 Room Air 04/11/22 22:06 04/11/22 21:21 Room Air 04/11/22 19:51 Room Air 04/11/22 19:45 Room Air 04/11/22 19:45 Room Air 04/11/22 19:45 Room Air
[2022-04-12] MEDS ORDERED: DEXTROSE 50% 50 ML SYRINGE IV PRN (03:13)
[2022-04-12] MEDS ORDERED: GLUCOSE 40% GEL 15 GM TUBE PO PRN (03:13)
[2022-04-12] MEDS ORDERED: CARBOHYDRATES FOR HYPOGLYCEMIA PO PRN (03:13)
[2022-04-12] MEDS ORDERED: GLUCOSE 10 TAB/TUBE PO PRN (03:13)
[2022-04-12] MEDS ORDERED: GLUCAGON FOR INJ 1 MG VIAL SQ PRN (03:13)
[2022-04-12] MEDS ORDERED: SODIUM CHLORIDE 0.9% 1000ML 1,000 ML IV SCH (03:15)
[2022-04-12] MEDS: ACETAMINOPHEN 325 MG TAB PO PRN ×2 (03:38→21:12)
[2022-04-12 05:13] LABS: Anion Gap 7 (3-11); BUN Creatinine Ratio 15.4 (10-20); Blood Urea Nitrogen 20 mg/dl (6-23); Calcium 8.7 mg/dl (8.5-10.1); Carbon Dioxide 24 mmol/L (21-32); Chloride 103 mmol/L (98-107); Est GFR (African American) 66.8 ml/min; Est GFR (Non-African American) 57.7 ml/min; Glucose 128 mg/dl (70-99(Fasting)); Sodium 134 mmol/L (136-145)
[2022-04-12 05:22] LABS: Troponin I High Sensitivity 404.2 pg/ml (0-20)
[2022-04-12] MEDS: LEVOTHYROXINE SODIUM 75 MCG TABLET PO SCH (06:42)
[2022-04-12] MEDS: PANTOprazole 40 MG TAB PO SCH (06:42)
[2022-04-12] MEDS: OSELTAMIVIR PHOSPHATE 75 MG CAP PO SCH ×2 (07:36→21:13)
[2022-04-12] MEDS: HEPARIN SOD 5,000 UNIT/0.5 ML VIAL SQ SCH ×2 (07:37→20:39)
[2022-04-12] MEDS: buPROPion XL 300 MG TABCR PO SCH (07:38)
[2022-04-12] MEDS: QUEtiapine FUMARATE 25 MG TABLET PO SCH ×3 (07:38→20:20)
[2022-04-12] MEDS: ASPIRIN 81 MG CHEW PO SCH (07:38)
[2022-04-12] MEDS: busPIRone 15 MG TAB PO SCH ×2 (07:38→20:41)
[2022-04-12] MEDS: ARIPiprazole 15 MG TAB PO SCH (07:38)
[2022-04-12] MEDS: lisinopril 10 MG TAB PO SCH (07:38)
[2022-04-12] MEDS: VENLAFAXINE HCL XR 75 MG CAPXR PO SCH (07:38)
[2022-04-12] MEDS: VENLAFAXINE HCL XR 37.5 MG CAPXR PO SCH (07:39)
[2022-04-12] MEDS: carvediloL 6.25 MG TAB PO SCH ×2 (07:39→20:41)
[2022-04-12] MEDS: risperiDONE 0.5 MG TABLET PO SCH (07:39)
[2022-04-12] MEDS: cloNIDine HCL 0.1 MG TAB PO SCH ×2 (07:39→20:37)
[2022-04-12] MEDS: SENNA 8.6 MG TAB PO SCH ×2 (07:39→20:42)
[2022-04-12] MEDS: amLODIPine BESYLATE 5 MG TAB PO SCH (08:10)
[2022-04-12] MEDS: clonazePAM 0.25 MG TAB PO SCH ×2 (08:10→21:12)
[2022-04-12] MEDS: INSULIN ASPART PER UNIT SC SCH ×4 (08:15→20:37)
--- NOTE | 2022-04-12 08:26 | CT Scan Report ---
ABDOMEN AND PELVIS CT WITH IV CONTRAST CT DOSE: 3006.74 mGy.cm HISTORY: Nausea. Vomiting. TECHNIQUE: Multiaxial CT images of the abdomen and pelvis were performed following the use of intrave nous contrast. A dose lowering technique was utilized adhering to the principles of ALARA. COMPARISON STUDY: Abdomen and pelvis CT 10/30/2019. FINDINGS: There is mild motion artifact. Bibasilar linear densities consistent with subsegmental atel ectasis. No pneumoperitoneum. No pneumatosis. No acute fractures identified. Old, healed left-sided r ib fractures. Hepatic steatosis. Cholecystectomy. The main portal vein is patent. The pancreas, splee n, adrenal glands, and right kidney are unremarkable. There are few subcentimeter hypodensities withi n the left kidney which statistically represent cysts. No hydronephrosis. There is a left-sided IVC. No retroperitoneal lymphadenopathy. Moderate calcified plaque within the normal caliber abdominal aor ta. Normal bladder. No pelvic free fluid or pelvic lymphadenopathy. No bowel wall thickening or obstr uction. Normal appendix. IMPRESSION: 1. Mild motion artifact. 2. No bowel wall thickening or obstruction. 3. Normal appendix. 4. Cholecystectomy. 5. Hepatic steatosis. ACT 112: Negative or not required by law. Electronically signed by: Red Wiley M.D. 04/12/2022 8:24 AM
[2022-04-12] MEDS: LANTUS PER UNIT CHARGE SQ SCH ×2 (09:27→20:36)
--- NOTE | 2022-04-12 14:44 | Electrocardiogram Report ---
Test Reason : Blood Pressure : / mmHG Vent. Rate : 115 BPM Atrial Rate : 115 BPM P-R Int : 172 ms QRS Dur : 090 ms QT Int : 322 ms P-R-T Axes : 063 037 054 degrees QTc Int : 445 ms Sinus tachycardia Low voltage QRS Possible Anterolateral infarct (cited on or before 10-JUN-2010) Abnormal ECG When compared with ECG of 30-OCT-2019 21:58, No significant change was found Confirmed by Junaid Alan ([id number]) on 04/12/2022 2:44:34 PM Referred By: REFERRED SELF Confirmed By:Junaid Alan
--- NOTE | 2022-04-12 14:50 | Electrocardiogram Report ---
Test Reason : Blood Pressure : / mmHG Vent. Rate : 116 BPM Atrial Rate : 116 BPM P-R Int : 162 ms QRS Dur : 086 ms QT Int : 320 ms P-R-T Axes : 065 036 061 degrees QTc Int : 444 ms Sinus tachycardia Low voltage QRS Inferior infarct , age undetermined Anterolateral infarct (cited on or before 10-JUN-2010) Abnormal ECG When compared with ECG of 11-APR-2022 19:22, (unconfirmed) No significant change was found Confirmed by Junaid Alan ([id number]) on 04/12/2022 2:49:53 PM Referred By: REFERRED SELF Confirmed By:Junaid Alan
--- NOTE | 2022-04-12 17:32 | Communication Note ---
Date of Service: April 12, 2022 Pt was seen and evaluated at bedside. Caregiver present at bedside. As per caregiver pt just ate some of his meal. Pt said that he is having some discom fort in his abdomen. Caregiver said that he is not able to cough out any phlegm. No further episode of vomiting since admitting. He is not having any chest pain. CTA abd/pelvis showed no bowel wall thickening or obstruction. CXR showed no acute process. Testing positive for influenza A on admission. Troponin elevated on admission possible related to demand ischemia due to acute URI. Currently denies any chest pain. will trend troponin. EKG did not showed any acute ischemic changes. If pt develops any chest pain or Troponin continue to rise, will get an ECHO and will consult cardiology. Continue Tamiflu for the influenza A. Continue monitor closely. MD Karthikeyan
[2022-04-12] MEDS: ALBUT/IPRATROP 3MG/0.5MG NEB 3 ML VIAL NEB PRN (20:30)
[2022-04-12] MEDS: DIVALPROEX EXTENDED RELEASE 500 MG TAB PO SCH (20:38)
[2022-04-12] MEDS: DOXEPIN HCL 10 MG CAPSULE PO SCH (20:42)
[2022-04-12] MEDS ORDERED: FUROSEMIDE 40 MG/4 ML VIAL IV ONE (21:57)
[2022-04-12] MEDS ORDERED: Heparin IV Adult Wt-Based Standard *NO* Bolus Protocol IV SCH (22:13)
[2022-04-12] MEDS: DOXYCYCLINE HYCLATE 100 MG in DEXTROSE 5% 100 ML IV SCH (22:34)
[2022-04-12 22:38] LABS: iSTAT Allen Test Pass; iSTAT Arterial Blood Gas HCO3 21 meg/L (19-24); iSTAT Arterial Blood Gas pCO2 37 mmHg (35-46); iSTAT Arterial Blood Gas pH 7.36 (7.35-7.45); iSTAT Arterial Blood Gas pO2 59 mmHg (80-95); iSTAT Carbon Dioxide 22 mmol/L (24-31); iSTAT FiO2 100 %; iSTAT Site L Radial
--- NOTE | 2022-04-12 23:03 | Communication Note ---
Date of Service: April 12, 2022 I was paged by RN around 9:57 pm for desaturation to 88% on 6L O2 and Estrella grecia was called shortly after my arrival as he rapidly desaturated during the eval process. This is 66-year-old male with PMH of intellectual disability, HLD, T2DM, [place], chronic ischemic heart disease, ASCVD, HTN, heart failure, reflux esophagitis, dental caries, GERD, BPH, arthritis of hip, spina bifida, depression with anxiety was brought from [facility] with chief complaint of nausea and vomiting on 04/11 to our ED. Per RN, patient was wheezing and had diffuse bilateral crackles, received his breathing treatment in the evening at which time patient was saturating well on 4 L nasal cannula oxygen. After an hour of that, patient got his evening me dications, and while they were changing his bed and turning him around, he started developing respiratory distress, needed higher oxygen and I was paged,his O2 need went up to 10 L by oxygen mask, saturation started to drop, I called the estrella grecia, patient was alert/unable to cooperate or answer orientation questions, but denied any chest pain. While working on his respiration and oxygenation, his saturation dropped to low 40s, he was quickly changed to BiPAP, saturation gradually improved, patient maintained consciousness throughout the procedure. Could be aspiration given multiple vomiting prior to arrival and given acute desaturation following evening medication administration. Also could be fluid overload versus cardiac cause [troponin up trended] versus superimposed bacterial infection over underlying influenza A infection. Patient was also developing temperature since evening. Stat test and imagings were ordered: CXR, CTA chest, EKG, CBC, CMP, magnesium, phosphorus, ABG, MRSA screen, fingerstick glucose CTA CHEST PRELIM READ: The examination is limited by motion artifact related to respiratory motion. There is good opacification of the pulmonary arterial tree, no pulmonary arterial filling defect is seen. There are dense presumed infectious consolidations involving the bilateral lower lobes as well as within the upper lobes. No effusion or pneumothorax. Stat medications were ordered: Unasyn IV, doxycycline IV, heparin drip, Lasix 40 mg IV On examination: Patient was alert, denied chest pain, diffuse and bilateral crackles, tachycardic, blood pressure 183/85, temperature 38.5C. 1+ BLE edema, Mild to mod distress ABG showed PaO2 of 59, no CO2 retention. Other stat labs are pending. EKG NSR with no acute ST or T changes. Given fever and influenza and bilateral opacities in this chest x-ray, will cover for aspiration pneumonia/sepsis. Given uptrending troponin, will put him on heparin drip, cardiology consult in a.m. concern for fluid overload, hence Lasix IV. Consider further Lasix in a.m. upon clinical assessment. Maintain I's and O's. Speech eval for aspiration. Maintain BiPAP for the time being for acute resp failure. At the time of leaving his BP was 143/86; SpO2 97% on BPAP, Alert and responding to name. Since, pt is dnr/dni, decision was made to transfer to pcu status. total of 75 minutes of critical care time invested in the care of this patient including documentation/phone call to his sister Gladys ([phone]; 12 minutes spent). Pt's sister Gladys requesting updates from Day team providers, will relay to day team. Gladys confirmed that patient never had any kind of allergic reaction to drugs; and penicillin allergy listed in our system is solely because her mother thought he might have allergy to penicillin as her mother had allergies to penicillin in her childhood. Will add blood culture.
[2022-04-12 23:04] LABS: Hematocrit (blood only) 38.2 % (40.1-51.0); Mean Corpuscular Hemoglobin 32.5 pg (25.0-34.0); Mean Corpuscular Volume 95.5 fL (80.0-100.0); Mean Platelet Volume 11.2 fL (9.4-12.4); Platelet Count 110 K/uL (130-400); RDW Coefficient of Variation 14.2 % (11.5-14.5); White Blood Count 7.67 K/ul (4.8-10.8)
[2022-04-12 23:12] LABS: Albumin Globulin Ratio 0.9 (0.9-2); Albumin Level 3.8 gm/dl (3.4-5.0); BUN Creatinine Ratio 15.1 (10-20); Bilirubin,Total 0.5 mg/dl (0.2-1.0); Calcium 8.8 mg/dl (8.5-10.1); Creatinine Clr Calc Pharmacy 63.6 ml/min; Est GFR (African American) 61.6 ml/min; Est GFR (Non-African American) 53.2 ml/min; Globulin 4.4 gm/dl (2.5-4.0); Phosphorus 4.9 mg/dl (2.5-4.9); Potassium 4.6 mmol/L (3.5-5.1); Total Protein 8.2 gm/dl (6.0-8.3)
[2022-04-12] MEDS ORDERED: OPTIRAY 320 500ml IV ONE (23:14)
[2022-04-12 23:29] LABS: Troponin I High Sensitivity 892.6 pg/ml (0-20)
[2022-04-12 23:49] LABS: Hematocrit (blood only) 35.1 % (40.1-51.0); Hemoglobin 12.1 g/dl (14.0-18.0); Mean Corpuscular Hemoglobin 32.7 pg (25.0-34.0); Mean Corpuscular Hgb Conc 34.5 g/dL (32.0-36.0); Mean Corpuscular Volume 94.9 fL (80.0-100.0); Mean Platelet Volume 11.5 fL (9.4-12.4); Platelet Count 111 K/uL (130-400); RDW Coefficient of Variation 14.2 % (11.5-14.5); RDW Standard Deviation 49.3 fL (36.4-46.3); White Blood Count 9.38 K/ul (4.8-10.8)
[2022-04-13] LABS: INR 1.1 (0.9-1.1); Partial Thromboplastin Ratio 1.1; Partial Thromboplastin Time 29.5 Seconds (21.0-31.0)
[2022-04-13] MEDS ORDERED: cefTRIAXone SODIUM 2,000 MG in DEXTROSE 5% 50 ML IV SCH
[2022-04-13] MEDS: HEPARIN SODIUM/DEXTROSE 25,000 UNITS/500 ML BAG IV SCH ×2 (00:17→16:12)
[2022-04-13 00:22] LABS: Basophils # (auto) 0.03 K/uL (0-0.2); Basophils % (auto) 0.3 %; Eosinophils # (auto) 0.01 K/uL (0-0.50); Eosinophils % (auto) 0.1 %; Immature Granulocytes # (auto) 0.04 K/uL (0.00-0.02); Immature Granulocytes % (auto) 0.4 %; Lymphocytes # (auto) 1.04 K/uL (1.2-3.4); Lymphocytes % (auto) 11.1 %; Monocytes # (auto) 0.86 K/uL (0.24-0.82); Monocytes % (auto) 9.2 %; Neutrophils % (auto) 78.9 %; Tear Drop Cells 1+; Toxic Vacuolation 1+
[2022-04-13] MEDS: AMPICILLIN/SULBACTAM SOD 3,000 MG in 0.9 % SODIUM CHLORIDE 100 ML IV SCH ×4 (01:38→17:30)
[2022-04-13 01:47] LABS: Hematocrit (blood only) 35.3 % (40.1-51.0); Hemoglobin 12.1 g/dl (14.0-18.0); Mean Corpuscular Hemoglobin 32.4 pg (25.0-34.0); Mean Corpuscular Hgb Conc 34.3 g/dL (32.0-36.0); Mean Corpuscular Volume 94.6 fL (80.0-100.0); Mean Platelet Volume 11.3 fL (9.4-12.4); Platelet Count 104 K/uL (130-400); RDW Coefficient of Variation 14.2 % (11.5-14.5); RDW Standard Deviation 49.3 fL (36.4-46.3); Red Blood Count 3.73 M/uL (4.63-6.08); White Blood Count 9.55 K/ul (4.8-10.8)
[2022-04-13 02:07] LABS: Magnesium 1.8 mg/dl (1.7-2.4); Phosphorus 4.9 mg/dl (2.5-4.9)
[2022-04-13] MEDS: LEVOTHYROXINE SODIUM 75 MCG TABLET PO SCH (05:54)
[2022-04-13] MEDS: INSULIN ASPART PER UNIT SC SCH ×4 (07:53→20:34)
[2022-04-13 07:59] LABS: Partial Thromboplastin Ratio 2.4
--- NOTE | 2022-04-13 08:24 | XRay Report ---
XR chest 1V portable HISTORY: Shortness of breath. Wheezing. COMPARISON: Chest 04/11/2022. FINDINGS: The heart remains enlarged. Patchy airspace opacities seen throughout the lungs most pronou nced within the lung bases. No pneumothorax. Trace bilateral pleural effusions. IMPRESSION: Patchy bilateral airspace opacities. This favors a pneumonia. ACT 112: Negative or not required by law. Electronically signed by: Red Wiley M.D. 04/13/2022 8:23 AM
[2022-04-13] MEDS: PANTOprazole 40 MG TAB PO SCH (08:28)
[2022-04-13] MEDS: amLODIPine BESYLATE 5 MG TAB PO SCH (08:28)
[2022-04-13] MEDS: clonazePAM 0.25 MG TAB PO SCH ×2 (08:29→20:41)
[2022-04-13] MEDS: QUEtiapine FUMARATE 25 MG TABLET PO SCH ×3 (08:29→20:46)
[2022-04-13] MEDS: cloNIDine HCL 0.1 MG TAB PO SCH ×2 (08:29→20:45)
[2022-04-13] MEDS: risperiDONE 0.5 MG TABLET PO SCH (08:35)
[2022-04-13] MEDS: ARIPiprazole 15 MG TAB PO SCH (08:36)
[2022-04-13] MEDS: VENLAFAXINE HCL XR 37.5 MG CAPXR PO SCH (08:36)
[2022-04-13] MEDS: SENNA 8.6 MG TAB PO SCH ×2 (08:36→20:48)
[2022-04-13] MEDS: lisinopril 10 MG TAB PO SCH (08:36)
[2022-04-13] MEDS: VENLAFAXINE HCL XR 75 MG CAPXR PO SCH (08:36)
[2022-04-13] MEDS: ASPIRIN 81 MG CHEW PO SCH (08:36)
[2022-04-13] MEDS: carvediloL 6.25 MG TAB PO SCH ×2 (08:36→20:46)
[2022-04-13] MEDS: busPIRone 15 MG TAB PO SCH ×2 (08:36→20:46)
[2022-04-13] MEDS: buPROPion XL 300 MG TABCR PO SCH (08:36)
[2022-04-13] MEDS: LANTUS PER UNIT CHARGE SQ SCH ×2 (08:44→20:41)
--- NOTE | 2022-04-13 08:56 | CT Scan Report ---
CHEST CTA for PULMONARY ARTERIES CT DOSE: 1183.55 mGy.cm HISTORY: Acute shortness of breath. TECHNIQUE: Multiaxial CT images of the chest were performed following the intravenous administration of contrast to evaluate the pulmonary arteries. Maximal intensity projection images were also obtaine d. A dose lowering technique was utilized adhering to the principles of ALARA. COMPARISON STUDY: Chest 02/09/2018. FINDINGS: Fatty change noted within the visualized liver. The visualized spleen and adrenal glands un remarkable. There are trace bilateral pleural effusions. No pericardial effusion. The heart is top no rmal in size. Normal caliber thoracic aorta with no evidence for a dissection. Nondiagnostic evaluati on of the majority of the segmental and subsegmental pulmonary arteries due to the respiratory motion artifact. No filling defects identified within the central pulmonary arteries to suggest a pulmonary embolus. No mediastinal lymphadenopathy. Normal caliber esophagus. No acute fractures identified. Di ffuse interlobular septal thickening with patchy bilateral airspace opacities and dense consolidation within the lower lobes posteriorly. This favors a multifocal pneumonia and could be due to aspiratio n. A superimposed pulmonary edema is also suspected. IMPRESSION: 1. No evidence for a central pulmonary embolus. 2. Bilateral airspace opacities most pronounced within the lower lobes which likely represents a pneu monia. This could be due to aspiration. 3. Suspect superimposed pulmonary edema. ACT 112: Negative or not required by law. Electronically signed by: Red Wiley M.D. 04/13/2022 8:55 AM
[2022-04-13 09:00] LABS: Partial Thromboplastin Time 66.4 Seconds (21.0-31.0)
[2022-04-13] MEDS ORDERED: FUROSEMIDE 40 MG TAB PO SCH (09:00)
[2022-04-13] MEDS: OSELTAMIVIR PHOSPHATE 75 MG CAP PO SCH ×2 (09:08→22:30)
--- NOTE | 2022-04-13 09:19 | Cardiology Consultation ---
Date of Consultation April 13, 2022 Assessment & Plan (1) Influenza A: (2) Aspiration pneumonia: (3) Acute respiratory failure with hypoxia: (4) Elevated troponin I level: (5) Chronic heart failure with reduced ejection fraction and diastolic dysfunction: Plan 66-year-old patient admitted with acute hypoxic respiratory failure secondary to influenza A with bilateral pneumonia, possible aspiration. Elevated troponin secondary to demand ischemia in the setting of acute respiratory failure/hypoxia. ECG without ischemic changes. Patient unable to offer meaningful history at this time. He has been agitated and combative. I do not believe a resting echocardiogram would alter management at this time. Volume status difficult to assess given body habitus and underlying pulmonary infectious process. Recommend maintaining even to mildly negative fluid balance to optimize respiratory status. Follow daily weight, fluid balance, GFR, and electrolytes. Continue outpatient furosemide 40 mg daily. Transition to IV medication if patient unable to tolerate oral meds. History of Present Illness Reason for Consultation: positive troponin Requesting Physician: Dr. Napier Attending Physician: Latesha Napier MD History of Present Illness 66[facility] with nausea, vomiting, fever, shortness of breath and wheezing. Diagnosed with influenza A on admission. Complex cardiovascular history noted below. Cardiology consultation requested due to elevated HS troponin (peaking at 1157 and trending downward this morning to 892) in the setting of acute hypoxic respiratory failure. ECG with nonspecific ST abnormality on admission. Most recent echocardiogram performed in the [facility] system in 2019 reporting mild LV systolic dysfunction. Patient treated with Tamiflu, IV heparin, antibiotic therapy, and 1 dose of IV Lasix on admission. CT of the chest negative for pulmonary embolus however bilateral lower lobe pneumonia is present. Possible aspiration. Currently resting comfortably. Responds to verbal stimuli however does not answer questions appropriately. One-to-one nursing observation present due to agitation. Currently febrile and hypoxic, however, oxygen saturation 100% on 15 L of Ventimask. Patient uncooperative with BiPAP. Cardiac history copied from [facility] medical record: ASCVD, ischemic cardiomyopathy. Hospitalization at [facility] in May 2010 after a mechanical fall with resultant left leg fracture. Evaluation at that time included an EKG that suggested a prior anteroseptal Q-wave [place] Echocardiogram revealed hypokinesis of the inferoseptal wall and anteroseptal lopez with poor visualization of the apex; estimated ejection fraction 45-50%. Patient did not undergo surgical evaluation. While in the hospital it was recommended he und ergo stress testing and further cardiac evaluations which patient refused, even declining IV placement. Due to patient's difficulty with agitation and reluctance to undergo further medical evaluations and care he was placed on medical therapies. Allergies Allergy/AdvReac Type Severity Reaction Status Date / Time terbinafine Allergy Mild RASH ON Verified 04/12/22 23:22 ARM? Home Medications Medication Instructions Recorded Confirmed Type clonidine HCl 0.2 mg tablet 0.2 mg PO BID 02/01/18 04/11/22 History sennosides 8.6 mg tablet (senna) 8.6 mg PO BID 09/21/18 04/11/22 History clonazepam 0.5 mg tablet 0.25 mg PO QAM 09/30/18 04/12/22 History lancets (Lancets,Thin) #50 ea 11/07/19 04/11/22 Rx bupropion HCl 300 mg 24 hr tablet, 300 mg PO QAM 05/05/20 04/11/22 History extended release aspirin 81 mg chewable tablet 81 mg PO QAM 06/09/20 04/11/22 History aripiprazole 15 mg tablet 15 mg PO QAM 07/31/20 04/11/22 History buspirone 15 mg tablet 15 mg PO BID 07/31/20 04/11/22 History quetiapine 50 mg tablet (Seroquel) 50 mg PO TID 07/31/20 04/11/22 History doxepin 10 mg capsule 10 mg PO HS 02/07/21 04/11/22 History omeprazole 40 mg capsule,delayed 40 mg PO DAILYBB 05/21/21 04/11/22 History release carvedilol 6.25 mg tablet 6.25 mg PO BID 04/11/22 04/11/22 History divalproex 500 mg tablet,extended 1,500 mg PO HS 04/11/22 04/11/22 History release 24 hr furosemide 40 mg tablet 40 mg PO DAILY 04/11/22 04/12/22 History levothyroxine 75 mcg tablet 75 mcg PO DAILYBB 04/11/22 04/11/22 History lisinopril 10 mg tablet 10 mg PO DAILY 04/11/22 04/11/22 History metformin 850 mg tablet 850 mg PO BID 04/11/22 04/11/22 History multivitamin (Daily-Ezekiel tablet) 1 tab PO QAM 04/11/22 04/11/22 History risperidone 0.25 mg tablet 0.25 mg PO DAILY 04/11/22 04/11/22 History venlafaxine 37.5 mg 37.5 mg PO QAM 04/11/22 04/11/22 History capsule,extended release 24 hr venlafaxine 75 mg capsule,extended 75 mg PO QAM 04/11/22 04/11/22 History release 24 hr Patient History Medical History Anemia Arthritis Cataract Cerebral palsy Chronic ischemic heart disease Combative behavior Coronary artery disease Diabetes mellitus, type 2 Dysphagia Fall Fall risk GERD (gastroesophageal reflux disease) Hyperlipidemia Hypertension Hypothyroidism Impulse control disorder Intermittent explosive disorder [place] Moderate intellectual disabilities sister/POA -ASHLEY IRENE [phone]-[phone] CRUZ 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 SIGNS CONSENTS MRSA (methicillin resistant Staphylococcus aureus) carrier Myocardial infarction Remote hx per records > medically managed Obesity Severe anxiety Spina bifida Thrombocytopenia Chronic thrombocytopenia, baseline platelets low 100s per chart review Vocal cord paralysis, unilateral complete Surgical History H/O tooth extraction History of bronchoscopy Flexible bronchoscopy with BAL (02/04/18): Grade view 1, Elective glidescope #4, ETT 8.5 at [facility] (done for aspiration PNA) History of colonoscopy EGD/colonoscopy (12/07/19): MAC sedation at [facility] History of esophagogastroduodenoscopy (EGD) History of laparoscopic cholecystectomy Laparoscopic cholecystectomy [address] Wolff Family History Other No significant family history Social History Smoking Status: Never smoker Second Hand Exposure: No; Do You Dip or Chew Tobacco: No; Tobacco Cessation Education Requested by Patient: No Hx Alcohol Use: No Hx Substance Use: No Preferred Language: Croatian Communication Ability: Effective Production Aide Required: No Beliefs That Will Affect Care: None marital status: Single Current Living Situation: Personal Care Facility Current Living Situation Comment: [facility] current occupational status: disabled Other Information That Helps Us Care for You: No Feels Safe at Home: Yes Safety Concerns: Feels Safe At This Time Assistive Devices: Walker and Wheelchair Review of Systems Review of Systems: Unobtainable due to cognitive status Physical Exam Constitutional: + ill appearing and + obese Respiratory: no respiratory distress and no retractions Auscultation: + crackles (Right base), + rhonchi (Bilateral) and + wheezes (Bilateral expiratory) Cardiovascular: Rate/Rhythm: regular rate and regular rhythm Heart Sounds: normal S1 and normal S2; no murmur Vessels: radial pulses present; no JVD and no carotid bruit Extremities: no edema Gastrointestinal (Abdomen): Inspection/Auscultation: abdomen normal to inspection and normal bowel sounds; abdomen not distended Percussion/Palpation: abdomen soft; abdomen nontender, no guarding and abdomen not rigid Neurologic: moves all extremities Results & Data ([facility]) Vital Signs (Past 12 Hours) Vital Signs Temp Pulse Pulse Pulse Resp BP Pulse Ox 04/13/22 07:28 39 H 96 04/13/22 07:23 37.4 C 94 H 24 153/82 H 95 04/12/22 23:25 98 H 04/12/22 23:00 04/13/22 02:18 37 H 96 04/13/22 03:00 36.7 C 99 H 18 164/88 H 94 04/13/22 01:28 37.2 C 94 H 30 H 156/91 H 99 04/13/22 00:53 37 H 98 04/12/22 23:41 37.9 C H 9 L 28 H 136/92 99 04/12/22 22:15 36 H 85 L 04/12/22 22:00 36 H 60 L 04/12/22 21:57 38.4 C H 102 H 24 181/107 H 89 L 04/12/22 21:25 38.8 C H 99 H 24 189/82 H 90 O2 Del Method O2 Flow Rate FiO2 04/13/22 07:28 50 04/13/22 07:23 BiPAP 50 04/12/22 23:25 04/12/22 23:00 BiPAP 90 04/13/22 02:18 50 04/13/22 03:00 BiPAP 04/13/22 01:28 BiPAP 70 01/01/23 00:53 60 04/12/22 23:41 BiPAP 90 04/12/22 22:15 100 04/12/22 22:00 Oxymask, BiPAP 15 04/12/22 21:57 Nasal Cannula 8 04/12/22 21:25 Nasal Cannula 4 Diagnostic Findings 2D echocardiogram report 04/04/2019: Limited cooperation unable to obtain EKG tracing. The examination is limited quality but adequate for evaluation of the referral indication. The qualitative LV ejection fraction is 45-49% (mildly reduced). The mid and apical the mid and apical inferoseptum is thinned and akinetic. The mid anteroseptum is thinned and akinetic. The apical anterior and lateral lopez were not well visualized. The left ventricular endocardium is inadequately assessed. Consider a repeat examination using ultrasonic contrast.
[2022-04-13] MEDS: DOXYCYCLINE HYCLATE 100 MG in DEXTROSE 5% 100 ML IV SCH ×2 (09:40→22:32)
--- NOTE | 2022-04-13 10:01 | Electrocardiogram Report ---
Test Reason : Blood Pressure : / mmHG Vent. Rate : 102 BPM Atrial Rate : 102 BPM P-R Int : 158 ms QRS Dur : 088 ms QT Int : 356 ms P-R-T Axes : 081 097 056 degrees QTc Int : 463 ms Poor data quality, interpretation may be adversely affected Sinus tachycardia Rightward axis Low voltage QRS Cannot rule out Anteroseptal infarct (cited on or before 10-JUN-2010) Abnormal ECG When compared with ECG of 12-APR-2022 00:26, Criteria for Inferior infarct are no longer Present Confirmed by Herbert Randolph ([id number]) on 04/13/2022 10:01:27 AM Referred By: REFERRED SELF Confirmed By:Trino Randolph
--- NOTE | 2022-04-13 10:02 | Electrocardiogram Report ---
Test Reason : Blood Pressure : / mmHG Vent. Rate : 100 BPM Atrial Rate : 100 BPM P-R Int : 164 ms QRS Dur : 088 ms QT Int : 338 ms P-R-T Axes : 073 082 074 degrees QTc Int : 436 ms Normal sinus rhythm Poor R wave progression, consider anterior AL vs. lead placement vs. LVH Abnormal ECG When compared with ECG of 12-APR-2022 21:17, (unconfirmed) No significant change was found Confirmed by Herbert Randolph ([id number]) on 04/13/2022 10:02:04 AM Referred By: REFERRED SELF Confirmed By:Trino Randolph
[2022-04-13] MEDS: ACETAMINOPHEN 325 MG TAB PO PRN (15:58)
--- NOTE | 2022-04-13 16:17 | Hospitalist Progress Note ---
Date of Service April 13, 2022 Assessment & Plan (1) Acute respiratory failure with hypoxia: Plan: Possible related to upper respiratory viral vs aspiration Patient brought in with complaint of nausea, vomiting, fever, shortness of breath, wheezing Patient found to be influenza A positive at admission CXR showed Patchy bilateral airspace opacities. CTA showed no evidence for a central pulmonary embolus. Bilateral airspace opacities most pronounced within the lower lobes which likely represents a pneumonia. Suspect superimposed pulmonary edema. Currently on IV unasyn and doxycycline Speech on board recommended minced and moist diet with thin liquid. Speech will continue to assess him Continue aspiration precaution Will add flutter valve, incentive spirometry and chest PT Continue neb treatment (2) Influenza A: Plan: Continue Tamiflu (3) Elevated troponin: Plan: Elevated troponin I level Mostly demand ischemia due to acute respiratory failure Troponin peaked 1157, now trending 896 cardiology on board Pt was started on IV heparin drip that was discontinued after discussing case with cardiology ECHO showed Large sized apical, septal, anteroseptal, inferior wall motion abnormality with hypokinesis to akinesis of the segment. Ejection fraction 50 to 55% Continue aspirin and carvedilol Transaminitis Elevated Liver enzymes with AST [address] abd/pelvis showed no bowel wall thickening or obstruction. Continue monitor liver enzymes Hyponatremia Na 132 on admission Na 134 today Continue monitor BMP Hypothyroidism Continue Levothyroxine DVT prophylaxis: Heparin subcu DNR/DNI Admission and Anticipated Discharge Date Admission Date: April 12, 2022 Subjective Pt was seen and examined for follow up of respiratory failure Lying in bed with mild respiratory distress This morning he was on 15L oxygen, currently he is on 4L NC Sister at bedside provided with update and answered all her questions Pt said that his breathing is much better He continues to have productive cough he has been febrile denies any chest pain, abdominal pain and N/V Review of Systems Review of Systems: All systems reviewed & are unremarkable except as noted in Subjective Physical Exam Physical Exam: General- No acute distress Head- atraumatic Eyes- PERRL, EOMI, ENT- oropharynx clear Neck- supple, no JVD Lungs- +coarse BS (+crackles and Rhonchi) Heart- regular rhythm; no murmur Abdomen- normal bowel sounds, soft, nontender Extremities- no calf tenderness Neuro- alert, oriented x 3; PERRL, EOMI; no facial palsy; no dysarthria Skin- warm & dry Results & Data Results & Data ([facility]) Vital Signs (Past 12 Hours) Vital Signs Temp Pulse Pulse Resp BP Pulse Ox O2 Del Method 04/13/22 15:55 38.3 C H 81 33 H 119/73 95 Oxymask 04/13/22 12:00 37.5 C 90 28 H 132/64 97 Nasal Cannula 04/13/22 10:57 37.8 C H 87 22 134/65 100 Oxymask 04/13/22 08:00 BiPAP 04/13/22 07:28 39 H 96 04/13/22 07:23 37.4 C 94 H 24 153/82 H 95 BiPAP O2 Flow Rate FiO2 04/13/22 15:55 4 04/13/22 12:00 6 04/13/22 10:57 15 04/13/22 08:00 50 04/13/22 07:28 50 04/13/22 07:23 50
[2022-04-13] MEDS: guaiFENesin 200 MG TAB PO SCH ×2 (17:28→22:33)
[2022-04-13] MEDS: DIVALPROEX EXTENDED RELEASE 500 MG TAB PO SCH (20:47)
[2022-04-13] MEDS: DOXEPIN HCL 10 MG CAPSULE PO SCH (20:47)
[2022-04-13] MEDS: HEPARIN SOD 5,000 UNIT/0.5 ML VIAL SQ SCH (20:47)
[2022-04-14] MEDS: AMPICILLIN/SULBACTAM SOD 3,000 MG in 0.9 % SODIUM CHLORIDE 100 ML IV SCH ×4 (00:29→17:02)
[2022-04-14] MEDS: LEVOTHYROXINE SODIUM 75 MCG TABLET PO SCH (04:34)
[2022-04-14] MEDS: guaiFENesin 200 MG TAB PO SCH ×4 (04:34→22:16)
[2022-04-14 06:40] LABS: Hematocrit (blood only) 29.1 % (40.1-51.0); Hemoglobin 9.6 g/dl (14.0-18.0); Mean Platelet Volume 11.9 fL (9.4-12.4); Platelet Count 94 K/uL (130-400); RDW Coefficient of Variation 14.6 % (11.5-14.5); RDW Standard Deviation 51.4 fL (36.4-46.3)
[2022-04-14 07:06] LABS: Alanine Aminotransferase 65 U/L (7-52); Albumin Globulin Ratio 0.8 (0.9-2); Albumin Level 3.1 gm/dl (3.4-5.0); Alkaline Phosphatase 35 U/L (34-104); Anion Gap 9 (3-11); BUN Creatinine Ratio 12.9 (10-20); Bilirubin,Total 0.5 mg/dl (0.2-1.0); Blood Urea Nitrogen 42 mg/dl (6-23); Calcium 7.7 mg/dl (8.5-10.1); Carbon Dioxide 26 mmol/L (21-32); Chloride 104 mmol/L (98-107); Creatinine Clr Calc Pharmacy 28.5 ml/min; Globulin 3.7 gm/dl (2.5-4.0); Glucose 80 mg/dl (70-99(Fasting)); Sodium 139 mmol/L (136-145); Total Protein 6.8 gm/dl (6.0-8.3)
[2022-04-14] MEDS: OSELTAMIVIR PHOSPHATE 75 MG CAP PO SCH (07:48)
[2022-04-14] MEDS: amLODIPine BESYLATE 5 MG TAB PO SCH (07:49)
[2022-04-14] MEDS: busPIRone 15 MG TAB PO SCH ×2 (07:49→20:28)
[2022-04-14] MEDS: VENLAFAXINE HCL XR 75 MG CAPXR PO SCH (07:50)
[2022-04-14] MEDS: ARIPiprazole 15 MG TAB PO SCH (07:51)
[2022-04-14] MEDS: risperiDONE 0.5 MG TABLET PO SCH (07:51)
[2022-04-14] MEDS: PANTOprazole 40 MG TAB PO SCH (07:51)
[2022-04-14] MEDS: ASPIRIN 81 MG CHEW PO SCH (07:51)
[2022-04-14] MEDS: buPROPion XL 300 MG TABCR PO SCH (07:51)
[2022-04-14] MEDS: SENNA 8.6 MG TAB PO SCH ×2 (07:52→20:30)
[2022-04-14] MEDS: cloNIDine HCL 0.1 MG TAB PO SCH (07:52)
[2022-04-14] MEDS: carvediloL 6.25 MG TAB PO SCH ×2 (07:52→20:29)
[2022-04-14] MEDS: VENLAFAXINE HCL XR 37.5 MG CAPXR PO SCH (07:52)
[2022-04-14] MEDS: QUEtiapine FUMARATE 25 MG TABLET PO SCH ×3 (07:52→20:28)
[2022-04-14] MEDS: HEPARIN SOD 5,000 UNIT/0.5 ML VIAL SQ SCH ×2 (07:53→20:29)
[2022-04-14] MEDS: INSULIN ASPART PER UNIT SC SCH ×4 (07:59→22:15)
[2022-04-14] MEDS: LANTUS PER UNIT CHARGE SQ SCH ×2 (08:02→23:02)
[2022-04-14] MEDS: clonazePAM 0.25 MG TAB PO SCH ×2 (08:03→20:28)
[2022-04-14] MEDS ORDERED: FUROSEMIDE 20 MG TAB PO SCH ×2 (09:00)
[2022-04-14] MEDS ORDERED: FUROSEMIDE 40 MG TAB PO SCH (09:00)
[2022-04-14] MEDS: DOXYCYCLINE HYCLATE 100 MG in DEXTROSE 5% 100 ML IV SCH ×2 (10:10→22:22)
[2022-04-14] MEDS ORDERED: SODIUM CHLOR 7% 4 ML NEB NEB ONE (10:15)
[2022-04-14 12:34] LABS: Hematocrit (blood only) 29.7 % (40.1-51.0); Hemoglobin 10.2 g/dl (14.0-18.0)
[2022-04-14 12:53] LABS: Creatinine Clr Calc Pharmacy 27.3 ml/min; Est GFR (African American) 20.8 ml/min
--- NOTE | 2022-04-14 13:28 | Hospitalist Progress Note ---
Date of Service April 14, 2022 Assessment & Plan (1) Acute respiratory failure with hypoxia: Plan: Possible related to upper respiratory viral vs aspiration Patient brought in with complaint of nausea, vomiting, fever, shortness of breath, wheezing Patient found to be influenza A positive at admission CXR showed Patchy bilateral airspace opacities. CTA showed no evidence for a central pulmonary embolus. Bilateral airspace opacities most pronounced within the lower lobes which likely represents a pneumonia. Suspect superimposed pulmonary edema. Continue IV Unasyn and doxycycline Speech on board recommended minced and moist diet with thin liquid. Speech will continue to assess him Continue aspiration precaution Continue flutter valve, incentive spirometry, hypertonic saline and chest PT Continue neb treatment (2) Influenza A: Plan: Continue Tamiflu (3) Elevated troponin: Plan: Elevated troponin I level Mostly demand ischemia due to acute respiratory failure Troponin peaked 1157, now trending 896 cardiology on board Pt was started on IV heparin drip that was discontinued after discussing case with cardiology ECHO showed Large sized apical, septal, anteroseptal, inferior wall motion abnormality with hypokinesis to akinesis of the segment. Ejection fraction 50 to 55% Continue aspirin and carvedilol Transaminitis Elevated Liver enzymes with AST 167 and ALT 123, now trending down CT abd/pelvis showed no bowel wall thickening or obstruction. Continue monitor liver enzymes Acute kidney injury Mostly due to acute illness in the setting of diuretic creatinine increased to 3.4 Will get renal u/s Hold lasix and lisinopril Will start on gentle fluid hydration Nephrology consult Will monitor closely for sign of CHF Fever Mostly due to Influenza A or aspiration pna No leukocytosis Blood cx no growth He has been afebrile for about 24hr Continue monitor Hyponatremia Na 132 on admission Na 139 today Continue monitor BMP Hypothyroidism Continue Levothyroxine DVT prophylaxis: Heparin subcu DNR/DNI Admission and Anticipated Discharge Date Admission Date: April 12, 2022 Subjective Pt was seen and examined for follow up Lying in bed with mild respiratory distress Pt continue requiring 5L NC oxygen he continues to have alot of secretion that required suction last night Pt is tired this morning Review of Systems Review of Systems: All systems reviewed & are unremarkable except as noted in Subjective Physical Exam Physical Exam: General- No acute distress Head- atraumatic Eyes- PERRL, EOMI, ENT- oropharynx clear Neck- supple, no JVD Lungs- +coarse BS (+crackles and Rhonchi) Heart- regular rhythm; no murmur Abdomen- normal bowel sounds, soft, nontender Extremities- no calf tenderness Neuro- alert, oriented x 3; PERRL, EOMI; no facial palsy; no dysarthria Skin- warm & dry Results & Data Results & Data ([facility]) Vital Signs (Past 12 Hours) Vital Signs Temp Pulse Pulse Resp BP Pulse Ox O2 Del Method 04/14/22 11:03 36.9 C 73 17 95/68 L 94 Nasal Cannula 04/14/22 10:30 Nasal Cannula 04/14/22 10:31 77 18 90 Nasal Cannula 04/14/22 07:45 37.3 C 82 20 119/66 90 Nasal Cannula 04/14/22 07:23 76 04/14/22 04:23 74 18 110/64 91 Nasal Cannula O2 Flow Rate 04/14/22 11:03 6 04/14/22 10:30 5 04/14/22 10:31 5 04/14/22 07:45 5 04/14/22 07:23 04/14/22 04:23 4
--- NOTE | 2022-04-14 14:29 | Ultrasound Report ---
RENAL ULTRASOUND CLINICAL HISTORY: elevated creatinine COMPARISON STUDY: CT of the abdomen and pelvis April 11, 2022. TECHNIQUE: Sonography of the kidneys and the urinary bladder was performed. FINDINGS: The right kidney measures 12.7 cm in maximal dimension and the left measures 12.3 cm. There is no hydronephrosis. No renal calculi are present. Ureteral jets were not visualized. Hepatic steat osis is incidentally noted. IMPRESSION: No hydronephrosis. Unremarkable sonographic appearance of the kidneys. ACT 112: Negative or not required by law. Electronically signed by: Martínez Anand M.D. 04/14/2022 2:27 PM
--- NOTE | 2022-04-14 14:30 | Cardiology Progress Note ---
Date of Service April 14, 2022 Assessment & Plan (1) Influenza A: (2) Aspiration pneumonia: (3) Acute respiratory failure with hypoxia: (4) Elevated troponin I level: (5) Chronic heart failure with reduced ejection fraction and diastolic dysfunction: (6) Acute renal insufficiency: Plan 66-year-old patient admitted with acute hypoxic respiratory failure secondary to influenza A with bilateral pneumonia, possible aspiration. Elevated troponin secondary to demand ischemia in the setting of acute respiratory failure/hypoxia and acute renal failure. ECG without ischemic changes. Repeat echocardiogram demonstrating low left ventricular systolic function and mild aortic valve sclerosis. Findings stable and unchanged when compared to prior study. Volume status difficult to assess given body habitus and underlying pulmonary infectious process. Given mild hypotension and acute renal insufficiency, intravascular volume depletion suspected. Consider gentle hydration. Diuretic therapy will be placed on hold. Follow daily weight, fluid balance, GFR, and electrolytes. Admission and Anticipated Discharge Date Admission Date: April 12, 2022 Subjective Patient seen examined the bedside. Arousable to verbal stimuli. No chest pain or tightness. Unable to offer meaningful history due to intellectual disability. Less agitated today. Telemetry reveals sinus rhythm. Oxygen requirements have improved, however, creatinine has trended upward significantly. Review of Systems Review of Systems: All systems reviewed & are unremarkable except as noted in Subjective Physical Exam Constitutional: + ill appearing and + obese Respiratory: no respiratory distress and no retractions Auscultation: + crackles (Right base) and + rhonchi (Bilateral); no wheezes Cardiovascular: Rate/Rhythm: regular rate and regular rhythm Heart Sounds: normal S1 and normal S2; no murmur Vessels: radial pulses present; no JVD and no carotid bruit Extremities: no edema Gastrointestinal (Abdomen): Inspection/Auscultation: abdomen normal to inspection and normal bowel sounds; abdomen not distended Percussion/Palpation: abdomen soft; abdomen nontender, no guarding and abdomen not rigid Neurologic: moves all extremities Results & Data ([facility]) Vital Signs (Past 12 Hours) Vital Signs Temp Pulse Pulse Resp BP Pulse Ox O2 Del Method 04/14/22 11:03 36.9 C 73 17 95/68 L 94 Nasal Cannula 04/14/22 10:30 Nasal Cannula 04/14/22 10:31 77 18 90 Nasal Cannula 04/14/22 07:45 37.3 C 82 20 119/66 90 Nasal Cannula 04/14/22 07:23 76 01/02/23 04:23 74 18 110/64 91 Nasal Cannula O2 Flow Rate 04/14/22 11:03 6 04/14/22 10:30 5 04/14/22 10:31 5 04/14/22 07:45 5 04/14/22 07:23 04/14/22 04:23 4
[2022-04-14] MEDS: SODIUM CHLORIDE 0.9% 1000ML 1,000 ML IV SCH (14:34)
[2022-04-14] MEDS: ALBUT/IPRATROP 3MG/0.5MG NEB 3 ML VIAL NEB PRN (15:28)
[2022-04-14] MEDS: SODIUM CHLOR 7% 4 ML NEB NEB SCH (19:55)
[2022-04-14] MEDS: DOXEPIN HCL 10 MG CAPSULE PO SCH (20:29)
[2022-04-14] MEDS: DIVALPROEX EXTENDED RELEASE 500 MG TAB PO SCH (20:29)
[2022-04-15] MEDS: AMPICILLIN/SULBACTAM SOD 3,000 MG in 0.9 % SODIUM CHLORIDE 100 ML IV SCH ×4 (00:29→17:22)
[2022-04-15] MEDS: SODIUM CHLORIDE 0.9% 1000ML 1,000 ML IV SCH (04:50)
[2022-04-15] MEDS: guaiFENesin 200 MG TAB PO SCH ×4 (05:56→21:03)
[2022-04-15] MEDS: LEVOTHYROXINE SODIUM 75 MCG TABLET PO SCH (05:56)
[2022-04-15 06:48] LABS: Hematocrit (blood only) 28.9 % (40.1-51.0); Hemoglobin 9.7 g/dl (14.0-18.0); Mean Corpuscular Hemoglobin 32.6 pg (25.0-34.0); Mean Corpuscular Hgb Conc 33.6 g/dL (32.0-36.0); Mean Platelet Volume 11.6 fL (9.4-12.4); Platelet Count 99 K/uL (130-400); RDW Coefficient of Variation 14.4 % (11.5-14.5); RDW Standard Deviation 51.3 fL (36.4-46.3); Red Blood Count 2.98 M/uL (4.63-6.08); White Blood Count 5.61 K/ul (4.8-10.8)
[2022-04-15 06:53] LABS: Albumin Globulin Ratio 0.8 (0.9-2); Albumin Level 3.1 gm/dl (3.4-5.0); BUN Creatinine Ratio 19.6 (10-20); Bilirubin,Total 0.4 mg/dl (0.2-1.0); Calcium 7.7 mg/dl (8.5-10.1); Creatinine Clr Calc Pharmacy 39.4 ml/min; Est GFR (African American) 31.8 ml/min; Est GFR (Non-African American) 27.5 ml/min; Globulin 3.8 gm/dl (2.5-4.0); Potassium 3.6 mmol/L (3.5-5.1); Total Protein 6.9 gm/dl (6.0-8.3)
[2022-04-15] MEDS: SODIUM CHLOR 7% 4 ML NEB NEB SCH ×2 (07:13→19:26)
--- NOTE | 2022-04-15 08:20 | Consultation Report ---
NEPHROLOGY CONSULTATION NOTE DATE OF SERVICE: 04/14/2022. REASON FOR CONSULTATION: Acute renal failure. HISTORY OF PRESENT ILLNESS: The patient is a 66-year-old male, who presented to the hospital 2 days ago with nausea, vomiting, shortness of breath as well as fever. He was found to be positive for influenza A, as well as pneumonia. He did have CT angiogram of the chest at the time of admission. His creatinine was normal on presentation at 1.3, but the next day, it went up to 3.26 and then 3.41. His blood pressure was high at the time of admission, but then dropped quite fast and is now somewhat hypotensive with a blood pressure of 95/68. The patient is quite somnolent and weak and was unable to give me any history. The patient's caregiver was at the bedside, who provided most of the details. At baseline, the patient does have very high blood pressure and does take multiple blood pressure medications. At this time, the patient does have acute respiratory failure with hypoxia and requiring very high dose oxygen. Cardiology has seen the patient for elevated troponin, which is felt to be secondary to demand ischemia. Echocardiogram was also done yesterday, which does show some wall motion abnormality with ejection fraction was 50%. The patient does not have a Alfred catheter at this time, but as per the caregiver, he does make urine, but for the last 4 years, he has not made any urine. The patient has been started on low dose IV fluid from this morning after the abnormal labs. Lisinopril, Lasix has been on hold. ALLERGIES: Reviewed. MEDICATIONS: Home medication list was reviewed in detail and is as per the reconciliation list. At home, he does take Lasix 20 daily as well as lisinopril, metformin, amlodipine, carvedilol, and multiple other medications. PAST MEDICAL HISTORY: Includes a history of chronic ischemic heart disease combative behavior, coronary artery disease, type 2 diabetes, GERD, hyperlipidemia, hypertension, which is uncontrolled, impulse control disorder, moderate intellectual disabilities, spina bifida, severe anxiety, morbid obesity, history of chronic thrombocytopenia. PAST SURGICAL HISTORY: Tooth extraction, bronchoscopy, colonoscopy, laparoscopic cholecystectomy. REVIEW OF SYSTEMS: Unable to obtain as the patient is not able to give me any history. SOCIAL HISTORY: Never smoked. No alcohol. The patient has intellectual disability. He lives in a personal care facility at [facility]. He is single. He is disabled, he uses a wheelchair for ambulation. PHYSICAL EXAMINATION: GENERAL: An elderly white male, who appears chronically ill. He is awake, but we have to wake him up. He is very somnolent and weak, could not test orientation. VITAL SIGNS: Blood pressure 95/68, pulse rate 71, temperature 36.9 degrees, oxygen saturation 89% on 10 liters oxygen mask. CHEST: Bilaterally clear to auscultation. Diminished breath sounds because of poor inspiratory effort. CARDIOVASCULAR: S1 and S2, regular. ABDOMEN: Soft, nontender, obese. EXTREMITIES: Show no edema. NEUROLOGIC: He is very somnolent and barely opens eyes on sternal rub. LABORATORY TEST: On admission 2 days ago, creatinine was 1.39. Two days later, this morning, his creatinine is up to 3.41. Sodium 139, potassium 4.0, chloride 104, bicarbonate 26, calcium 7.7, albumin 3.1. ASSESSMENT AND PLAN: A 66-year-old male with intellectual disability and a resident of [facility], now admitted with influenza A with pneumonia and respiratory failure. I have been consulted for acute renal failure. 1. Acute renal failure. This is secondary to acute tubular necrosis in the setting of hypoxia/respiratory failure with influenza A and aspiration pneumonia. Also, his blood pressure has significantly dropped from high to low in a very short span of time. On top of that, he also received IV contrast 2 days ago for the CT chest. So the combination of hypoxia, relative hypotension, and contrast exposure is the cause of his ischemia acute tubular necrosis. Creatinine has gone up quite fast from 1.3 to 3.41 within a span of 48 hours. This is a fairly rapid rise in creatinine. So given this, it is hard to tell how far the kidney will get worse in the coming days. This will be evident with the blood work to be done tomorrow morning. For the time being, I would like to hold all of his blood pressure lowering medications including amlodipine and clonidine. Continue carvedilol. Continue IV fluid. Continue to hold lisinopril. Avoid all nephrotoxic agents as well as NSAIDs and contrast agent. I would also hold magnesium hydroxide, metformin. Renal ultrasound already done and he does not have hydronephrosis. I would also do a UA for further classification. Thank you very much for the consult. Job ID: [id number] SENTHIL
[2022-04-15] MEDS ORDERED: OSELTAMIVIR PHOSPHATE SUSP 30 MG/5 ML UDP PO SCH (09:00)
[2022-04-15] MEDS: buPROPion XL 300 MG TABCR PO SCH (09:32)
[2022-04-15] MEDS: LANTUS PER UNIT CHARGE SQ SCH ×2 (09:32→21:32)
[2022-04-15] MEDS: busPIRone 15 MG TAB PO SCH ×2 (09:32→21:04)
[2022-04-15] MEDS: VENLAFAXINE HCL XR 37.5 MG CAPXR PO SCH (09:32)
[2022-04-15] MEDS: PANTOprazole 40 MG TAB PO SCH (09:32)
[2022-04-15] MEDS: risperiDONE 0.5 MG TABLET PO SCH (09:33)
[2022-04-15] MEDS: VENLAFAXINE HCL XR 75 MG CAPXR PO SCH (09:33)
[2022-04-15] MEDS: QUEtiapine FUMARATE 25 MG TABLET PO SCH ×3 (09:33→21:04)
[2022-04-15] MEDS: carvediloL 6.25 MG TAB PO SCH ×2 (09:33→21:07)
[2022-04-15] MEDS: clonazePAM 0.25 MG TAB PO SCH ×2 (09:34→21:21)
[2022-04-15] MEDS: INSULIN ASPART PER UNIT SC SCH ×4 (09:34→21:06)
--- NOTE | 2022-04-15 09:34 | Nephrology Progress Note ---
Date of Service April 15, 2022 Assessment & Plan (1) Acute renal insufficiency: Plan: improving HESHAM secondary to acute tubular necrosis in the setting of hypoxia/respiratory failure with influenza A and aspiration pneumonia, labile blood pressure ( though no sustained periods of dramatic hypotension), and IV contrast 04/12. So the combination of hypoxia, relative hypotension, and contrast exposure is the cause of his ischemic acute tubular necrosis. Creatinine has gone up quite fast from 1.3->3.41 within a span of 48 hours, improving on 04/15 to 2.4. -continue to hold amlodipine and clonidine and lisinopril. Continue carvedilol. >> >>given higher 02 needs will lower NS rate to 40 mL/hr -Avoid all nephrotoxic agents as well as NSAIDs and contrast agent; cont to hold magnesium hydroxide, metformin. Renal ultrasound already done and he does not have hydronephrosis. ->>await UA/ pending collection; no indication for straight cath at this time Admission and Anticipated Discharge Date Admission Date: April 12, 2022 Subjective 02 needs stable though high and w/ big jump to 9L shortly after I saw him. ROS limited by cognitive status. he c/o low central abdominal pain; his caregiver states this c/o is not uncommon for him Review of Systems Review of Systems: Other (limited d/t cognitive status as above) Physical Exam Constitutional: well developed and well nourished Eyes: EOM intact bilaterally ENMT: Ears: no external ear abnormality Nose: no external nose abnormality Mouth: + dry oral mucous membranes Neck: no nuchal rigidity Respiratory: normal respiratory effort, able to speak in complete sentences and + tachypneic; no respiratory distress, no labored breathing and no cough Auscultation: + diminished lung sounds and + rhonchi (does not cooperate well w/ exam) Gastrointestinal (Abdomen): Inspection/Auscultation: normal bowel sounds Percussion/Palpation: abdomen soft; abdomen nontender Musculoskeletal: Extremities: strength 5/5 throughout Skin: no rashes, warm and dry Neurologic: major, fluent speech, no tremor Psychiatric: Orientation: oriented to person, oriented to place and cooperative Results & Data ([facility]) Vital Signs (Past 12 Hours) Vital Signs Temp Pulse Pulse Resp BP Pulse Ox O2 Del Method 04/15/22 07:16 36.8 C 83 21 170/90 H 94 Nasal Cannula 04/15/22 07:13 84 22 89 L Nasal Cannula 04/15/22 03:43 37.5 C 74 18 137/78 94 Nasal Cannula 04/14/22 22:59 70 04/14/22 23:31 37.0 C 73 20 121/63 90 Nasal Cannula O2 Flow Rate 04/15/22 07:16 5.0 04/15/22 07:13 5 04/15/22 03:43 04/14/22 22:59 04/14/22 23:31 Laboratory Results 04/15/22 05:44 04/15/22 05:44
[2022-04-15] MEDS: ARIPiprazole 15 MG TAB PO SCH (09:35)
[2022-04-15] MEDS: HEPARIN SOD 5,000 UNIT/0.5 ML VIAL SQ SCH ×2 (09:35→21:04)
[2022-04-15] MEDS: SENNA 8.6 MG TAB PO SCH ×2 (09:50→21:02)
--- NOTE | 2022-04-15 11:43 | Cardiology Progress Note ---
Date of Service April 15, 2022 Assessment & Plan (1) Influenza A: (2) Aspiration pneumonia: (3) Acute respiratory failure with hypoxia: (4) Elevated troponin I level: (5) Chronic heart failure with reduced ejection fraction and diastolic dysfunction: (6) Acute renal insufficiency: (7) Contrast dye induced nephropathy: Plan 66-year-old patient admitted with acute hypoxic respiratory failure secondary to influenza A with bilateral pneumonia, possible aspiration. Elevated troponin secondary to demand ischemia in the setting of acute respiratory failure/hypoxia and acute renal failure. ECG without ischemic changes. Repeat echocardiogram with stable findings. Agree with continued caution gentle hydration. Likely discontinue and/or lower rate pending clinical response. Hold diuretic therapy today. Follow daily weight, fluid balance, GFR, and electrolytes. Admission and Anticipated Discharge Date Admission Date: April 12, 2022 Subjective Patient seen examined the bedside. More alert today, however, does not answer questions appropriately due to intellectual disability. Caregiver at bedside. No events reported by nursing overnight. Telemetry reveals sinus rhythm. Serum creatinine trending downward. Patient receiving gentle IV hydration in addition to antibiotic therapy. Fluid balance +2.3 L. Review of Systems Review of Systems: Unobtainable due to cognitive status Physical Exam Constitutional: + ill appearing and + obese Respiratory: no respiratory distress and no retractions Auscultation: + crackles (Right base) and + rhonchi (Bilateral); no wheezes Cardiovascular: Rate/Rhythm: regular rate and regular rhythm Heart Sounds: normal S1 and normal S2; no murmur Vessels: radial pulses present; no JVD and no carotid bruit Extremities: no edema Gastrointestinal (Abdomen): Inspection/Auscultation: abdomen normal to inspection and normal bowel sounds; abdomen not distended Percussion/Palpation: abdomen soft; abdomen nontender, no guarding and abdomen not rigid Neurologic: moves all extremities Results & Data ([facility]) Vital Signs (Past 12 Hours) Vital Signs Temp Pulse Resp BP Pulse Ox O2 Del Method O2 Flow Rate 04/15/22 11:06 36.8 C 77 21 144/79 H 94 Nasal Cannula 9.0 04/15/22 08:00 Nasal Cannula 6 04/15/22 07:16 36.8 C 83 21 170/90 H 94 Nasal Cannula 5.0 04/15/22 07:13 84 22 89 L Nasal Cannula 5 04/15/22 03:43 37.5 C 74 18 137/78 94 Nasal Cannula
[2022-04-15] MEDS: DOXYCYCLINE HYCLATE 100 MG in DEXTROSE 5% 100 ML IV SCH ×2 (11:49→21:21)
[2022-04-15] MEDS: ASPIRIN 81 MG CHEW PO SCH (11:49)
[2022-04-15] MEDS ORDERED: XOPENEX/ATROVENT 1.25mg/0.5MG NEB COMBO NEB STA (18:48)
--- NOTE | 2022-04-15 18:48 | XRay Report ---
XR chest 1V portable CLINICAL HISTORY: Respiratory distress. COMPARISON STUDY: Chest radiograph and chest CT April 12, 2022. FINDINGS: There is no pneumothorax. No definite pleural effusion is noted. Extensive bilateral airspa ce opacities have slightly progressed. Interstitial thickening is also noted. Cardiomediastinal silho uette is stable. IMPRESSION: Progression of extensive bilateral airspace opacities with interstitial thickening. The findings favor pneumonia or aspiration pneumonitis. Superimposed pulmonary edema cannot be excluded. ACT 112: Negative or not required by law. Electronically signed by: Martínez Anand M.D. 04/15/2022 6:46 PM
--- NOTE | 2022-04-15 18:51 | Hospitalist Progress Note ---
Date of Service April 15, 2022 Assessment & Plan (1) Influenza A: (2) Acute respiratory failure with hypoxia: Plan: Possible related to upper respiratory viral vs aspiration Patient brought in with complaint of nausea, vomiting, fever, shortness of breath, wheezing Patient found to be influenza A positive at admission CXR showed Patchy bilateral airspace opacities. CTA showed no evidence for a central pulmonary embolus. Bilateral airspace opacities most pronounced within the lower lobes which likely represents a pneumonia. Suspect superimposed pulmonary edema. Continue IV Unasyn and doxycycline Speech on board recommended minced and moist diet with thin liquid. Speech will continue to assess him Continue aspiration precaution Continue flutter valve, incentive spirometry, hypertonic saline and chest PT Continue neb treatment 04/15/22 Respiratory distress possible related to episode of aspiration vs pulmonary edema CXR showed progression of extensive bilateral airspace opacities with interstitial thickening. The findings favor pneumonia or aspiration pneumonitis. Will hold IVF Lasix 40mg IV x1 ( Nephrology was notified ) Will place on high flow oxygen Continue neb treatment, hypertonic saline, chest PT Will change abx to cefepime and continue doxycycline Speech on board Pulmonary consult Continue monitor closely (3) Elevated troponin: Plan: Elevated troponin I level Mostly demand ischemia due to acute respiratory failure Troponin peaked 1157, now trending 896 cardiology on board Pt was started on IV heparin drip that was discontinued after discussing case with cardiology ECHO showed Large sized apical, septal, anteroseptal, inferior wall motion abnormality with hypokinesis to akinesis of the segment. Ejection fraction 50 to 55% Continue aspirin and carvedilol Transaminitis Elevated Liver enzymes with AST 167 and ALT 123, continue trending down CT abd/pelvis showed no bowel wall thickening or obstruction. Continue monitor liver enzymes Acute kidney injury Mostly due to acute illness in the setting of diuretic creatinine increased to 3.4 Renal U/S showed no no hydronephrosis. creatinine trending down to 2.4 Nephrology on board Gentle IV fluid discontinued today due to respiratory distress due to pulmonary edema Nephrology o board Lasix 40mg IV x1 given ( nephrology was notified Continue monitor closely for volume overload Fever Mostly due to Influenza A or aspiration pna No leukocytosis Blood cx no growth He has been afebrile for about 24hr Continue abx with Cefepime and doxycycline Continue monitor Hyponatremia Na 132 on admission Na 137 today Continue monitor BMP Hypothyroidism Continue Levothyroxine DVT prophylaxis: Heparin subcu DNR/DNI Admission and Anticipated Discharge Date Admission Date: April 12, 2022 Subjective Pt was seen and examined for respiratory distress Lying in bed with caregiver at bedside watching TV Early he said that his breathing was slightly better compare to yesterday He continues to be very congested Later in the afternoon nurse called because required more oxygen supplement because oxygen sat was in the low 80% My colleague went to check on him and pt was placed on high flow oxygen Review of Systems Review of Systems: All systems reviewed & are unremarkable except as noted in Subjective Physical Exam Physical Exam: General- No acute distress Head- atraumatic Eyes- PERRL, EOMI, ENT- oropharynx clear Neck- supple, no JVD Lungs- +coarse BS (+crackles and Rhonchi) Heart- regular rhythm; no murmur Abdomen- normal bowel sounds, soft, nontender Extremities- no calf tenderness Neuro- alert, oriented x 3; PERRL, EOMI; no facial palsy; no dysarthria Skin- warm & dry Results & Data Results & Data ([facility]) Vital Signs (Past 12 Hours) Vital Signs Temp Pulse Resp BP Pulse Ox O2 Del Method O2 Flow Rate 04/15/22 15:33 37.0 C 78 21 174/99 H 93 Nasal Cannula 7.0 04/15/22 11:06 36.8 C 77 21 144/79 H 94 Nasal Cannula 9.0 04/15/22 08:00 Nasal Cannula 6 04/15/22 07:16 36.8 C 83 21 170/90 H 94 Nasal Cannula 5.0 04/15/22 07:13 84 22 89 L Nasal Cannula 5
[2022-04-15] MEDS ORDERED: FUROSEMIDE 40 MG/4 ML VIAL IV ONE ×2 (18:52→18:54)
[2022-04-15] MEDS ORDERED: IPRATROPIUM BROMIDE NEB SOLN 0.02% 2.5 ML VIAL INH STA (19:00)
[2022-04-15] MEDS ORDERED: LEVALBUTEROL 1.25MG/0.5ML NEB INH STA (19:00)
--- NOTE | 2022-04-15 19:23 | Communication Note ---
Date of Service: April 15, [address] Monet to evaluate patient's respiratory distress Seen at the bedside with RN Herbert, on oxygen mask, 7 L, saturating 89 to 90% Patient awake and alert but tachypneic, respiratory rate 32 Patient reports feeling short of breath Speaks in sentences with some effort Positive crackles bilaterally, no wheezing Positive bilateral lower extremity edema Stat chest x-ray: Showing increased bilateral infiltrates, possible pulmonary edema Stat ABG: pH 7.4, CO2 32, bicarb 21 Lasix 40 mg IV given, Alfred catheter placed Respiratory therapist called for stat breathing treatment Patient also suctioned, elevated head of the bed Will place patient on high flow O2 Change Unasyn to cefepime for broader coverage Discussed with Dr. Wright-nighttime hospitalist , Will reassess patient in an hour or so Called patient's sister to update, no answer, awaiting callback Pulmonary consult tomorrow morning alSo discussed with Dr. Monet, primary attending Hipolito Orourke MD
[2022-04-15] MEDS: ALBUT/IPRATROP 3MG/0.5MG NEB 3 ML VIAL NEB PRN (19:26)
[2022-04-15] MEDS: OSELTAMIVIR PHOSPHATE SUSP 30 MG/5 ML UDP PO SCH (20:55)
[2022-04-15] MEDS: CEFEPIME 2,000 MG in SYRINGE 0 ML IV SCH (20:55)
[2022-04-15] MEDS: DOXEPIN HCL 10 MG CAPSULE PO SCH (21:03)
[2022-04-15] MEDS: DIVALPROEX EXTENDED RELEASE 500 MG TAB PO SCH (21:03)
[2022-04-16] MEDS: SODIUM CHLOR 7% 4 ML NEB NEB SCH ×2 (05:52→17:29)
[2022-04-16] MEDS: guaiFENesin 200 MG TAB PO SCH ×4 (06:19→21:08)
[2022-04-16] MEDS: LEVOTHYROXINE SODIUM 75 MCG TABLET PO SCH (06:20)
[2022-04-16] MEDS: PANTOprazole 40 MG TAB PO SCH (07:43)
[2022-04-16] MEDS: INSULIN ASPART PER UNIT SC SCH ×4 (07:49→20:10)
[2022-04-16] MEDS: busPIRone 15 MG TAB PO SCH ×2 (07:56→21:09)
[2022-04-16] MEDS: QUEtiapine FUMARATE 25 MG TABLET PO SCH ×3 (07:56→21:07)
[2022-04-16] MEDS: carvediloL 6.25 MG TAB PO SCH ×2 (07:56→21:09)
[2022-04-16] MEDS: VENLAFAXINE HCL XR 75 MG CAPXR PO SCH (07:57)
[2022-04-16] MEDS: risperiDONE 0.5 MG TABLET PO SCH (07:57)
[2022-04-16] MEDS: buPROPion XL 300 MG TABCR PO SCH (07:57)
[2022-04-16] MEDS: VENLAFAXINE HCL XR 37.5 MG CAPXR PO SCH (07:57)
[2022-04-16] MEDS: HEPARIN SOD 5,000 UNIT/0.5 ML VIAL SQ SCH ×2 (08:02→21:06)
[2022-04-16] MEDS: SENNA 8.6 MG TAB PO SCH ×2 (08:03→21:09)
[2022-04-16] MEDS: ASPIRIN 81 MG CHEW PO SCH (08:11)
[2022-04-16] MEDS: clonazePAM 0.25 MG TAB PO SCH ×2 (08:11→21:07)
[2022-04-16] MEDS: CEFEPIME 2,000 MG in SYRINGE 0 ML IV SCH ×2 (08:11→21:10)
[2022-04-16] MEDS: OSELTAMIVIR PHOSPHATE SUSP 30 MG/5 ML UDP PO SCH ×2 (08:22→21:10)
[2022-04-16] MEDS: ARIPiprazole 15 MG TAB PO SCH (08:23)
[2022-04-16 08:29] LABS: Albumin Globulin Ratio 0.8 (0.9-2); Albumin Level 3.3 gm/dl (3.4-5.0); BUN Creatinine Ratio 21.4 (10-20); Bilirubin,Total 0.6 mg/dl (0.2-1.0); Calcium 8.1 mg/dl (8.5-10.1); Creatinine Clr Calc Pharmacy 59.2 ml/min; Est GFR (African American) 52.4 ml/min; Est GFR (Non-African American) 45.2 ml/min; Phosphorus 2.5 mg/dl (2.5-4.9); Total Protein 7.3 gm/dl (6.0-8.3)
[2022-04-16] MEDS: LANTUS PER UNIT CHARGE SQ SCH ×2 (08:30→22:50)
--- NOTE | 2022-04-16 08:40 | Hospitalist Progress Note ---
Date of Service April 16, 2022 Assessment & Plan (1) Influenza A: (2) Acute respiratory failure with hypoxia: Plan: Possible related to upper respiratory viral vs aspiration Patient brought in with complaint of nausea, vomiting, fever, shortness of breath, wheezing Patient found to be influenza A positive at admission CXR showed Patchy bilateral airspace opacities. CTA showed no evidence for a central pulmonary embolus. Bilateral airspace opacities most pronounced within the lower lobes which likely represents a pneumonia. Suspect superimposed pulmonary edema. Continue IV Unasyn and doxycycline -> switched to cefepime and doxy Speech consulted - recommended minced and moist diet with thin liquid. Speech will continue to assess him Continue aspiration precaution Continue flutter valve, incentive spirometry, hypertonic saline and chest PT Continue neb treatment 04/15/22 Respiratory distress possible related to episode of aspiration vs pulmonary edema CXR showed progression of extensive bilateral airspace opacities with interstitial thickening. The findings favor pneumonia or aspiration pneumonitis. Will hold IVF Lasix 40mg IV x1 ( Nephrology was notified ) Will place on high flow oxygen Continue neb treatment, hypertonic saline, chest PT Will change abx to cefepime and continue doxycycline Speech on board Pulmonary consult Continue monitor closely 04/16 -patient currently on oxygen mask 10 L. Creatinine improved with IV Lasix given yesterday. Discussed with nephrology, will continue with IV Lasix 20 twice daily Pulmonary consult pending (3) Elevated troponin: Plan: Elevated troponin I level Mostly demand ischemia due to acute respiratory failure Troponin peaked 1157, now trending 896 cardiology on board Pt was started on IV heparin drip that was discontinued after discussing case with cardiology ECHO showed Large sized apical, septal, anteroseptal, inferior wall motion abnormality with hypokinesis to akinesis of the segment. Ejection fraction 50 to 55% Continue aspirin and carvedilol Transaminitis Elevated Liver enzymes with AST 167 and ALT 123, continue trending down CT abd/pelvis showed no bowel wall thickening or obstruction. Continue monitor liver enzymes Acute kidney injury Mostly due to acute illness in the setting of diuretic creatinine increased to 3.4 Renal U/S showed no no hydronephrosis. creatinine trending down to Nephrology consulted Gentle IV fluid discontinued due to respiratory distress due to pulmonary edema Lasix 40mg IV x1 given ( nephrology was notified ) -continue with 20 IV twice daily Continue monitor closely for volume overload Fever Mostly due to Influenza A or aspiration pna No leukocytosis Blood cx no growth Continue abx with Cefepime and doxycycline Continue monitor Hyponatremia Na 132 on admission Na 138 today Continue monitor BMP Hypothyroidism Continue Levothyroxine DVT prophylaxis: Heparin subcu DNR/DNI Admission and Anticipated Discharge Date Admission Date: April 12, 2022 Subjective Pt seen in follow up of respiratory distress , + Influenza A Lying in bed on oxymask Overnight respiratory status worsened. Patient started on cefepime, received 40 IV Lasix. Creatinine improved this morning. Nephrology following. Patient denies any complaints. Seen patient with RN. No caregiver at the bedside. Pulmonary consultation pending as well Review of Systems Review of Systems: All systems reviewed & are unremarkable except as noted in Subjective Physical Exam Physical Exam: General- No acute distress but on oxymask Head- atraumatic Eyes- PERRL, EOMI, ENT- oropharynx clear Neck- supple, no JVD Lungs- +coarse BS (+crackles and Rhonchi) Heart- regular rhythm; no murmur Abdomen- normal bowel sounds, soft, nontender Extremities- no calf tenderness Neuro- awake and alert, able to answer simple questions appropriately , moves extremities PERRL, EOMI; no facial palsy; no dysarthria Skin- warm & dry Results & Data Results & Data ([facility]) Vital Signs (Past 12 Hours) Vital Signs Temp Pulse Pulse Resp BP Pulse Ox O2 Del Method 04/16/22 07:30 37.6 C H 89 18 177/92 H 89 L Oxymask 04/16/22 05:51 24 High Flow Nasal Cannula 04/16/22 03:09 36.9 C 84 22 134/72 97 High Flow Nasal Cannula 04/16/22 02:07 138 H 04/15/22 21:45 High Flow Nasal Cannula 04/15/22 22:05 101 H 24 90 High Flow Nasal Cannula 04/15/22 23:15 36.9 C 101 H 20 154/85 H 91 High Flow Nasal Cannula O2 Flow Rate FiO2 04/16/22 07:30 10 04/16/22 05:51 40 90 04/16/22 03:09 40 90 04/16/22 02:07 04/15/22 21:45 40 60 04/15/22 22:05 40 100 04/15/22 23:15 40 100 Laboratory Results 04/16/22 04/16/22 04/15/22 Range/Units 07:44 07:30 21:01 Sodium 138 (136-145) mmol/L Potassium 4.0 (3.5-5.1) mmol/L Chloride 106 (98-107) mmol/L Carbon Dioxide 24 (21-32) mmol/L Anion Gap 8 (3-11) BUN 34 H (6-23) mg/dl Creatinine 1.59 H D (0.6-1.4) mg/dl Est Cr Clr Drug Dosing 59.2 ml/min Est GFR ( Amer) 52.4 ml/min Est GFR (Non-Af Amer) 45.2 ml/min BUN/Creatinine Ratio 21.4 H (10-20) Glucose 96 (70-99(Fasting)) mg/dl POC Glucose 99 98 (70-99) mg/dl Calcium 8.1 L (8.5-10.1) mg/dl Phosphorus 2.5 (2.5-4.9) mg/dl Magnesium 2.0 (1.7-2.4) mg/dl Total Bilirubin 0.6 (0.2-1.0) mg/dl AST 46 H (13-39) U/L ALT 37 (7-52) U/L Alkaline Phosphatase 41 (34-104) U/L Total Protein 7.3 (6.0-8.3) gm/dl Albumin 3.3 L (3.4-5.0) gm/dl Globulin 4.0 (2.5-4.0) gm/dl Albumin/Globulin Ratio 0.8 L (0.9-2) 04/15/22 04/15/22 Range/Units 16:14 11:04 Sodium (136-145) mmol/L Potassium (3.5-5.1) mmol/L Chloride (98-107) mmol/L Carbon Dioxide (21-32) mmol/L Anion Gap (3-11) BUN (6-23) mg/dl Creatinine (0.6-1.4) mg/dl Est Cr Clr Drug Dosing ml/min Est GFR ( Amer) ml/min Est GFR (Non-Af Amer) ml/min BUN/Creatinine Ratio (10-20) Glucose (70-99(Fasting)) mg/dl POC Glucose 92 99 (70-99) mg/dl Calcium (8.5-10.1) mg/dl Phosphorus (2.5-4.9) mg/dl Magnesium (1.7-2.4) mg/dl Total Bilirubin (0.2-1.0) mg/dl AST (13-39) U/L ALT (7-52) U/L Alkaline Phosphatase (34-104) U/L Total Protein (6.0-8.3) gm/dl Albumin (3.4-5.0) gm/dl Globulin (2.5-4.0) gm/dl Albumin/Globulin Ratio (0.9-2) Medications Administered Current Inpatient Medications Acetaminophen (Acetaminophen 325 Mg Tab) 650 mg PO Q4H PRN PRN Reason: Pain or Fever Stop: 05/12/22 02:48 Last Admin: 04/13/22 15:58 Dose: 650 mg Al Hydrox/Mg Hydrox/Simethicone (Aluminum/Magnesium Susp 30 Ml Udc) 15 ml PO Q4 H PRN PRN Reason: Dyspepsia Stop: 05/12/22 02:48 Albuterol (Albut/Ipratrop 3mg/0.5mg Neb 3 Ml Vial) 3 ml NEB Q4R PRN; Protocol PRN Reason: sob, wheezing, resp distress Stop: 05/12/22 06:59 Last Admin: 04/15/22 19:26 Dose: 3 ml Amlodipine Besylate (Amlodipine Besylate 5 Mg Tab) 2.5 mg PO [facility] Stop: 05/12/22 08:59 Last Admin: 04/14/22 07:49 Dose: 2.5 mg Aripiprazole (Aripiprazole 15 Mg Tab) 15 mg PO [facility] Stop: 05/12/22 08:59 Last Admin: 04/16/22 08:23 Dose: 15 mg Aspirin (Aspirin 81 Mg Chew) 81 mg PO [facility] Stop: 05/12/22 08:59 Last Admin: 04/16/22 08:11 Dose: 81 mg Bupropion HCl (Bupropion Xl 300 Mg Tabcr) 300 mg PO [facility] Stop: 05/12/22 08:59 Last Admin: 04/16/22 07:57 Dose: 300 mg Buspirone HCl (Buspirone 15 Mg Tab) 15 mg PO BID [facility] Stop: 05/12/22 08:59 Last Admin: 04/16/22 07:56 Dose: 15 mg Carvedilol (Carvedilol 6.25 Mg Tab) 6.25 mg PO BID [facility] Stop: 05/12/22 08:59 Last Admin: 04/16/22 07:56 Dose: 6.25 mg Clonazepam (Clonazepam 0.25 Mg Tab) 0.25 mg PO BID@ [facility] Stop: 05/12/22 07:59 Last Admin: 04/16/22 08:11 Dose: 0.25 mg Clonidine HCl (Clonidine Hcl 0.1 Mg Tab) 0.2 mg PO BID@ [facility] Stop: 05/12/22 07:59 Last Admin: 04/14/22 07:52 Dose: 0.2 mg Dextrose (Dextrose 50% 50 Ml Syringe) 25 - 50 ml IV UD PRN; Protocol PRN Reason: Hypoglycemia Protocol Stop: 05/12/22 03:12 Divalproex Sodium (Divalproex Extended Release 500 Mg Tab) 1,500 mg PO [facility] Stop: 05/12/22 20:59 Last Admin: 04/15/22 21:03 Dose: 1,500 mg Doxepin HCl (Doxepin Hcl 10 Mg Capsule) 10 mg PO [facility] Stop: 05/12/22 20:59 Last Admin: 04/15/22 21:03 Dose: 10 mg Glucagon (Glucagon For Inj 1 Mg Vial) 1 mg SQ UD PRN; Protocol PRN Reason: Hypoglycemia Protocol Stop: 05/12/22 03:12 Glucose (Glucose 40% Gel 15 Gm Tube) 15 - 30 gm PO UD PRN; Protocol PRN Reason: Hypoglycemia Protocol Stop: 05/12/22 03:12 Glucose (Glucose 10 Tab/Tube) 4 - 8 tab PO UD PRN; Protocol PRN Reason: Hypoglycemia Treatment Stop: 05/12/22 03:12 Guaifenesin (Guaifenesin 200 Mg Tab) 200 mg PO Q6H [facility] Stop: 05/13/22 16:59 Last Admin: 04/16/22 06:19 Dose: 200 mg Heparin Sodium (Porcine) (Heparin Sod 5,000 Unit/0.5 Ml Vial) 5,000 units SQ Q12 [facility] Stop: 05/13/22 20:59 Last Admin: 04/16/22 08:02 Dose: 5,000 units Doxycycline Hyclate 100 mg/ (Dextrose) 110 mls @ 50 mls/hr IV Q12H [facility] Stop: 04/19/22 21:59 Last Infusion: 04/15/22 23:41 Dose: Infused Sodium Chloride (Nss 1000ml) 1,000 mls @ 40 mls/hr IV .Q24H [facility] Stop: 05/14/22 13:14 Last Infusion: 04/15/22 19:17 Dose: Infused Cefepime HCl 2,000 mg/ Syringe 20 mls @ 5 mls/min IV Q12H [facility]; Protocol Stop: 04/22/22 19:59 Last Admin: 04/16/22 08:11 Dose: 5 mls/min Insulin Aspart (Insulin Aspart Per Unit) 0 units SC ACHS [facility] Stop: 05/12/22 07:29 Last Admin: 04/16/22 07:49 Dose: 1 units Insulin Glargine (Lantus Per Unit Charge) 9 units SQ BID [facility] Stop: 05/12/22 08:59 Last Admin: 04/16/22 08:30 Dose: 9 units Levothyroxine Sodium (Levothyroxine Sodium 75 Mcg Tablet) 75 mcg PO DAILYBB [facility] Stop: 05/12/22 06:29 Last Admin: 04/16/22 06:20 Dose: 75 mcg Lisinopril (Lisinopril 10 Mg Tab) 10 mg PO DAILY [facility] Stop: 05/12/22 08:59 Last Admin: 04/13/22 08:36 Dose: 10 mg Magnesium Hydroxide (Magnesium Hydroxide Susp 30 Ml Udc) 30 ml PO Q12H PRN PRN Reason: Constipation Stop: 05/12/22 02:48 Miscellaneous (Carbohydrates For Hypoglycemia ) 15 - 30 gm PO UD PRN PRN Reason: Hypoglycemia Protocol Stop: 05/12/22 03:12 Oseltamivir Phosphate (Oseltamivir Phosphate Susp 30 Mg/5 Ml Udp) 30 mg PO BID [facility]; Protocol Stop: 04/16/22 23:59 Last Admin: 04/16/22 08:22 Dose: 30 mg Pantoprazole Sodium (Pantoprazole 40 Mg Tab) 40 mg PO DAILY@0700 [facility] Stop: 05/12/22 06:59 Last Admin: 04/16/22 07:43 Dose: 40 mg Polyethylene Glycol (Polyethylene (Miralax) 17 Gm Pack) 17 gm PO DAILY PRN PRN Reason: Constipation Stop: 05/12/22 02:48 Quetiapine Fumarate (Quetiapine Fumarate 25 Mg Tablet) 50 mg PO TID@0800,1400,2000 [facility] Stop: 05/12/22 07:59 Last Admin: 04/16/22 07:56 Dose: 50 mg Risperidone (Risperidone 0.5 Mg Tablet) 0.25 mg PO DAILY [facility] Stop: 05/12/22 08:59 Last Admin: 04/16/22 07:57 Dose: 0.5 mg Sennosides (Senna 8.6 Mg Tab) 8.6 mg PO BID [facility] Stop: 05/12/22 08:59 Last Admin: 04/16/22 08:03 Dose: 8.6 mg Sodium Chloride (Sodium Chlor 7% 4 Ml Neb) 4 ml NEB BIDR [facility] Stop: 05/14/22 18:59 Last Admin: 04/16/22 05:52 Dose: Not Given Venlafaxine HCl (Venlafaxine Hcl Xr 37.5 Mg Capxr) 37.5 mg PO QAM [facility] Stop: 05/12/22 08:59 Last Admin: 04/16/22 07:57 Dose: 37.5 mg Venlafaxine HCl (Venlafaxine Hcl Xr 75 Mg Capxr) 75 mg PO QAM [facility] Stop: 05/12/22 08:59 Last Admin: 04/16/22 07:57 Dose: 75 mg
[2022-04-16] MEDS: DOXYCYCLINE HYCLATE 100 MG in DEXTROSE 5% 100 ML IV SCH ×2 (09:42→21:10)
--- NOTE | 2022-04-16 09:47 | Nephrology Progress Note ---
Date of Service April 16, 2022 Assessment & Plan (1) Acute renal insufficiency: Plan: improving/resolved HESHAM secondary to acute tubular necrosis in the setting of today worsening hypoxia/respiratory failure with influenza A and aspiration pneumonia, labile blood pressure ( though no sustained periods of dramatic hypotension), and IV contrast 04/12. So the combination of hypoxia, relative hypotension, and contrast exposure is the cause of his ischemic acute tubular necrosis. Creatinine went quite fast from 1.3 (his baseline) ->3.41 within a span of 48 hours w/ peak on 04/14; today near baseline at 1.6. Renal u/s reassuring; no UA on file d/t challenges of collection and none currently indicated -continue to hold amlodipine and clonidine and lisinopril. Continue carvedilol. >avoid resuming clonidine if possible > it's hard to titrate appropriately >> >>given higher 02 needs started standing lasix dose 20 mg IV bid17 >started K 10 mEQ po bid -Avoid nephrotoxic agents as well as NSAIDs and contrast agent; cont to hold magnesium hydroxide, metformin. -daily bmp Admission and Anticipated Discharge Date Admission Date: April 12, 2022 Subjective higher oxygen needs past 24 hr incl high flow; more agitated overnight; familiar person from his facility not present today Review of Systems Review of Systems: All systems reviewed & are unremarkable except as noted in Subjective and Unobtainable due to cognitive status (limited by cog status) Physical Exam Constitutional: well developed, well nourished and + obese; no acute distress Eyes: EOM intact bilaterally ENMT: Ears: no external ear abnormality Nose: no external nose abnormality Mouth: + dry oral mucous membranes Neck: no nuchal rigidity Respiratory: normal respiratory effort, + labored breathing and + tachypneic; no respiratory distress, no cough and + not able to speak in complete sentence Auscultation: + diminished lung sounds and + rhonchi (does not cooperate well w/ exam) Gastrointestinal (Abdomen): Inspection/Auscultation: normal bowel sounds Percussion/Palpation: abdomen soft; abdomen nontender Musculoskeletal: Extremities: strength 5/5 throughout Skin: no rashes, warm and dry Psychiatric: Orientation: oriented to person, oriented to place and change control coordinator perative Genitourinary: lehman present Results & Data ([facility]) Vital Signs (Past 12 Hours) Vital Signs Temp Pulse Pulse Resp BP Pulse Ox O2 Del Method 04/16/22 09:36 85 92 Oxymask 04/16/22 08:00 Oxymask 04/16/22 07:30 37.6 C H 89 18 177/92 H 89 L Oxymask 04/16/22 05:51 24 High Flow Nasal Cannula 04/16/22 03:09 36.9 C 84 22 134/72 97 High Flow Nasal Cannula 04/16/22 02:07 138 H 04/15/22 21:45 High Flow Nasal Cannula 04/15/22 22:05 101 H 24 90 High Flow Nasal Cannula 04/15/22 23:15 36.9 C 101 H 20 154/85 H 91 High Flow Nasal Cannula O2 Flow Rate FiO2 04/16/22 09:36 10 04/16/22 08:00 10 04/16/22 07:30 10 04/16/22 05:51 40 90 04/16/22 03:09 40 90 04/16/22 02:07 04/15/22 21:45 40 60 04/15/22 22:05 40 100 04/15/22 23:15 40 100 Laboratory Results 04/15/22 05:44 04/16/22 07:44
[2022-04-16] MEDS: FUROSEMIDE INJ 20 MG/2 ML VIAL IV SCH ×2 (10:22→17:01)
[2022-04-16] MEDS: POTASSIUM CHLORIDE 10 MEQ TABCR PO SCH ×2 (10:23→21:08)
--- NOTE | 2022-04-16 10:38 | Pulmonary Consultation ---
Date of Consultation April 16, 2022 Assessment & Plan (1) Influenza A: (2) Acute respiratory failure with hypoxia: (3) Chronic heart failure with reduced ejection fraction and diastolic dysfunction: (4) Acute renal insufficiency: (5) Intellectual disability: Plan Patient HD #5 admitted for hypoxia with respiratory failure in the setting of influenza A infection. Aspiration pneumonitis/pneumonia likely exacerbating the above with likely component of pulmonary edema as well. Patient diuresed well overnight. Hypoxia with respiratory failure: - multifactorial as above- CBC and PCT ordered- recommend trending NLR, currently 4:1 with negative PCT - Aspiration pneumonitis likely exacerbating- continue with nebulizers and pulmonary toileting- may be intolerant to vest therapy- utilize bed in chair mode or OOB with flutter valve for postural drainage and expectoration of secretions - de-escalate abx likely within next 24 hours- as can't rule out bacterial infection at this time - due to his agitation and mental disability likely intolerant of CPAP/BiPAP- this as well likely inhibit expectoration of secretions- would recommend HFNC if escalation of oxygen therapy as needed - Continue with diuresing as you are- defer to nephrology and primary service- currently with Lasix BID Abnormal Chest Imaging findings: - Currently favors viral process with aspiration pneumonitis/pneumonia complicating picture along with diastolic CHF - supportive care as above - HFpEF- chronic - likely component of pulmonary edema on imaging- ECHO results reviewed- noting RWMA - defer fluid volume management to nephrology and cardiology- improved renal indices at this time following diuresing, as well as improved LFTS from admission- favoring a likely component to heart failure - re-introduce BP medications as able Overall: Work on pulmonary toileting and expectoration of secretions- accurate MIKIE and fluid volume management - supportive care pulmonary toileting and oxygen therapy falcon - will schedule nebulizers for 24 hours with PRN available if needed- not overtly bronchospastic but should help with coughing and expectorating secretions. - could consider hypertonic saline nebulizer if needed - fluid volume management as you are doing Supervising Physician Co-Signing Physician Notes I saw and evaluated the patient with Yayo Perez, and agree with findings and plan as documented in the note. 66-year-old male who is a very poor historian was admitted to the hospital be cause of shortness of breath possible aspiration episode. Pulmonary consulted because of increasing oxygen requirement At the time of examination patient was saturating 95 to 96% on 10 L, was able to go down to 6 L. Patient denied any headache, no chest pain, stated that shortness of breath is improved. He was in a good mood today. Constitutional: No acute distress HEENT: EOMI, PERRLA Respiratory system: Decreased air entry bilaterally, no wheeze, no rhonchi, positive crackles bilateral lower lobes CVS: S1-S2 positive, no murmurs or gallops Abdomen: Soft, nontender, nondistended, positive bowel sounds x4, obese Extremities: +2 pulses bilaterally radialis/ dorsalis pedis, no cyanosis, +1 pitting edema bilateral lower extremity Neuro: Awake alert oriented to self Psych: Normal mood and affect G/U: Positive Alfred Plan: Patient seems to have diffuse pulmonary infiltrate bilaterally on the CTA 04/12/2022, has stage II diastolic dysfunction Respiratory bio fire was negative on 04/11/2022 Procalcitonin is also negative Would recommend diuresis to keep the patient negative balance. He is +4.5 L since coming to the hospital Continue with antibiotics for total of 10 days Aspiration precaution Incentive spirometry as flutter valve will be beneficial but because of patient's intellectual ability I do not think he will be able to follow commands Case was discussed with Dr. Mcadams Please note the above document was generated using voice recognition software. It may contain grammatical, syntax or spelling errors.Any formal questions or concerns about the content, text or information contained within the body of this dictation should be directly addressed to the provider for clarification. History of Present Illness Reason for Consultation: Hypoxia with respiratory failure in setting of influenza A infection Requesting Physician: Karthikeyan Charlton Attending Physician: Champ Mcadams MD History of Present Illness 66-year-old male with PMH of intellectual disability, HLD, T2DM, MS, chronic ischemic heart disease, HTN, heart failure, reflux esophagitis, GERD, BPH, arthritis of hip, spina bifida, depression with anxiety. Patient resides at [facility] with care takers. Patient is able to answer simple questions, and is a poor historian. He was admitted for hypoxia, dyspnea, and vomiting. Most information obtained is from record review. Nursing reports multiple episodes through evening and overnight of patient striking or pinching/scratching staff. He does carry history of intermittent explosive disorder as weel as anxiety and depression. Noted as well as CKD- renal ultrasound obtained on admission with no evidence of hydro. ECHO noted with large RWMA with hypokinesis and mile Aortic Valve Sclerosis. EF 50-55% CT scan reviewed by self from admission: bilateral patchy airspace opacities with consolidation bilateral lower lobes. CXR repeated on 04/15/21- as above Allergies Allergy/AdvReac Type Severity Reaction Status Date / Time terbinafine Allergy Mild RASH ON Verified 04/12/22 23:22 ARM? Home Medications Medication Instructions Recorded Confirmed Type clonidine HCl 0.2 mg tablet 0.2 mg PO BID 02/01/18 04/11/22 History sennosides 8.6 mg tablet (senna) 8.6 mg PO BID 09/21/18 04/11/22 History clonazepam 0.5 mg tablet 0.25 mg PO QAM 09/30/18 04/12/22 History lancets (Lancets,Thin) #50 ea 11/07/19 04/11/22 Rx bupropion HCl 300 mg 24 hr tablet, 300 mg PO QAM 05/05/20 04/11/22 History extended release aspirin 81 mg chewable tablet 81 mg PO QAM 06/09/20 04/11/22 History aripiprazole 15 mg tablet 15 mg PO QAM 07/31/20 04/11/22 History buspirone 15 mg tablet 15 mg PO BID 07/31/20 04/11/22 History quetiapine 50 mg tablet (Seroquel) 50 mg PO TID 07/31/20 04/11/22 History doxepin 10 mg capsule 10 mg PO HS 02/07/21 04/11/22 History omeprazole 40 mg capsule,delayed 40 mg PO DAILYBB 05/21/21 04/11/22 History release carvedilol 6.25 mg tablet 6.25 mg PO BID 04/11/22 04/11/22 History divalproex 500 mg tablet,extended 1,500 mg PO HS 04/11/22 04/11/22 History release 24 hr furosemide 40 mg tablet 40 mg PO DAILY 04/11/22 04/12/22 History levothyroxine 75 mcg tablet 75 mcg PO DAILYBB 04/11/22 04/11/22 History lisinopril 10 mg tablet 10 mg PO DAILY 04/11/22 04/11/22 History metformin 850 mg tablet 850 mg PO BID 04/11/22 04/11/22 History multivitamin (Daily-Ezekiel tablet) 1 tab PO QAM 04/11/22 04/11/22 History risperidone 0.25 mg tablet 0.25 mg PO DAILY 04/11/22 04/11/22 History venlafaxine 37.5 mg 37.5 mg PO QAM 04/11/22 04/11/22 History capsule,extended release 24 hr venlafaxine 75 mg capsule,extended 75 mg PO QAM 04/11/22 04/11/22 History release 24 hr Patient History Medical History Anemia Arthritis Cataract Cerebral palsy Chronic ischemic heart disease Combative behavior Coronary artery disease Diabetes mellitus, type 2 Dysphagia Fall Fall risk GERD (gastroesophageal reflux disease) Hyperlipidemia Hypertension Hypothyroidism Impulse control disorder Intermittent explosive disorder [place] Moderate intellectual disabilities sister/POA -ASHLEY IRENE [phone] 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 SIGNS CONSENTS MRSA (methicillin resistant Staphylococcus aureus) carrier Myocardial infarction Remote hx per records > medically managed Obesity Severe anxiety Spina bifida Thrombocytopenia Chronic thrombocytopenia, baseline platelets low 100s per chart review Vocal cord paralysis, unilateral complete Surgical History H/O tooth extraction History of bronchoscopy Flexible bronchoscopy with BAL (02/04/18): Grade view 1, Elective glidescope #4, ETT 8.5 at [facility] (done for aspiration PNA) History of colonoscopy EGD/colonoscopy (12/07/19): MAC sedation at [facility] History of esophagogastroduodenoscopy (EGD) History of laparoscopic cholecystectomy Laparoscopic cholecystectomy [address] Wolff Family History Other No significant family history Social History Smoking Status: Never smoker Second Hand Exposure: No; Do You Dip or Chew Tobacco: No; Tobacco Cessation Education Requested by Patient: No Hx Alcohol Use: No Hx Substance Use: No Preferred Language: [place] Islander Communication Ability: Effective [place] Setter Required: No Beliefs That Will Affect Care: None marital status: Single Current Living Situation: Personal Care Facility Current Living Situation Comment: [facility] current occupational status: disabled Other Information That Helps Us Care for You: No Feels Safe at Home: Yes Safety Concerns: Feels Safe At This Time Assistive Devices: Walker and Wheelchair Review of Systems Review of Systems: unable to obtain ROS secondary to mental disabilities Physical Exam Physical Exam: PHYSICAL EXAM: General: awake, alert, calm and cooperative at this time Head: Normocephalic, atraumatic Neuro: AAO x 2, person and place, no focal deficits Chest: equal rise and fall of the chest, no accessory muscle use, scattered rhonchi throughout inspiratory and expiratory, productive cough Cardiac: Regular rate and rhythm, skin warm dry, cap refill <3 seconds, peripheral pulses +2 no JVD, no murmur, trace edema lower extremities GI: NABS x 4 quadrants, soft, nontender to palpation, no rebound, guarding or tenderness : Alfred to gravity Extremities: Normal inspection, no peripheral edema or erythema, calfs nontender to palpation Psych: calm at this time, but with periods of aggressiveness Results & Data Results & Data ([facility]) Vital Signs (Past 12 Hours) Vital Signs Temp Pulse Pulse Resp BP Pulse Ox O2 Del Method 04/16/22 09:36 85 92 Oxymask 04/16/22 08:00 Oxymask 04/16/22 07:30 37.6 C H 89 18 177/92 H 89 L Oxymask 04/16/22 05:51 24 High Flow Nasal Cannula 04/16/22 03:09 36.9 C 84 22 134/72 97 High Flow Nasal Cannula 04/16/22 02:07 138 H 04/15/22 23:15 36.9 C 101 H 20 154/85 H 91 High Flow Nasal Cannula O2 Flow Rate FiO2 04/16/22 09:36 10 04/16/22 08:00 10 04/16/22 07:30 10 04/16/22 05:51 40 90 04/16/22 03:09 40 90 04/16/22 02:07 04/15/22 23:15 40 100 Laboratory Results Abnormal lab results 04/16/22 04/16/22 04/16/22 Range/Units 07:44 07:44 11:32 RBC 3.25 L (4.63-6.08) M/uL Hgb 10.3 L (14.0-18.0) g/dl Hct 30.4 L (40.1-51.0) % RDW Std Deviation 48.5 H (36.4-46.3) fL Immature Gran # (Auto) 0.18 H (0.00-0.02) K/uL Absolute Nucleated RBC 0.03 H (0-0) K/uL BUN 34 H (6-23) mg/dl Creatinine 1.59 H D (0.6-1.4) mg/dl BUN/Creatinine Ratio 21.4 H (10-20) POC Glucose 103 H (70-99) mg/dl Calcium 8.1 L (8.5-10.1) mg/dl AST 46 H (13-39) U/L Albumin 3.3 L (3.4-5.0) gm/dl Albumin/Globulin Ratio 0.8 L (0.9-2) Diagnostic Findings Chest X-Ray 04/11/22 19:22 XR chest 1V portable HISTORY: Dyspnea/cough COMPARISON: Chest 11/02/2019. FINDINGS: The cardiac silhouette remains enlarged. No pneumothorax. No pleural effusions. Old, healed left clavicle fracture again noted. A few bibasilar linear densities favor subsegmental atelectasis. Otherwise, no new focal lung consolidations to suggest a pneumonia. No evidence for pulmonary edema. There are old, healed left-sided rib fractures. Mild elevation of the right hemidiaphragm remains unchanged. IMPRESSION: No significant change compared to the prior study. No acute process. ACT 112: Negative or not required by law. Electronically signed by: Red Wiley M.D. 04/11/2022 8:29 PM Abdomen/Pelvis CT 04/11/22 19:[address] WITH IV CONTRAST CT DOSE: 3006.74 mGy.cm HISTORY: Nausea. Vomiting. TECHNIQUE: Multiaxial CT images of the abdomen and pelvis were performed following the use of intravenous contrast. A dose lowering technique was utilized adhering to the principles of ALARA. COMPARISON STUDY: Abdomen and pelvis CT 10/30/2019. FINDINGS: There is mild motion artifact. Bibasilar linear densities consistent with subsegmental atelectasis. No pneumoperitoneum. No pneumatosis. No acute fractures identified. Old, healed left-sided rib fractures. Hepatic steatosis. Cholecystectomy. The main portal vein is patent. The pancreas, spleen, adrenal glands, and right kidney are unremarkable. There are few subcentimeter hypodensities within the left kidney which statistically represent cysts. No hydronephrosis. There is a left-sided IVC. No retroperitoneal lymphadenopathy. Moderate calcified plaque within the normal caliber abdominal aorta. Normal bladder. No pelvic free fluid or pelvic lymphadenopathy. No bowel wall thickening or obstruction. Normal appendix. IMPRESSION: 1. Mild motion artifact. 2. No bowel wall thickening or obstruction. 3. Normal appendix. 4. Cholecystectomy. 5. Hepatic steatosis. ACT 112: Negative or not required by law. Electronically signed by: Red Wiley M.D. 04/12/2022 8:24 AM Chest X-Ray 04/12/22 21:03 XR chest 1V portable HISTORY: Shortness of breath. Wheezing. COMPARISON: Chest 04/11/2022. FINDINGS: The heart remains enlarged. Patchy airspace opacities seen throughout the lungs most pronounced within the lung bases. No pneumothorax. Trace bilateral pleural effusions. IMPRESSION: Patchy bilateral airspace opacities. This favors a pneumonia. ACT 112: Negative or not required by law. Electronically signed by: Red Wiley M.D. 04/13/2022 8:23 AM Chest CTA 04/12/22 22:15 CHEST CTA for PULMONARY ARTERIES CT DOSE: 1183.55 mGy.cm HISTORY: Acute shortness of breath. TECHNIQUE: Multiaxial CT images of the chest were performed following the intravenous administration of contrast to evaluate the pulmonary arteries. Maximal intensity projection images were also obtained. A dose lowering technique was utilized adhering to the principles of ALARA. COMPARISON STUDY: Chest 02/09/2018. FINDINGS: Fatty change noted within the visualized liver. The visualized spleen and adrenal glands unremarkable. There are trace bilateral pleural effusions. No pericardial effusion. The heart is top normal in size. Normal caliber thoracic aorta with no evidence for a dissection. Nondiagnostic evaluation of the majority of the segmental and subsegmental pulmonary arteries due to the respiratory motion artifact. No filling defects identified within the central pulmonary arteries to suggest a pulmonary embolus. No mediastinal lymphadenopathy. Normal caliber esophagus. No acute fractures identified. Diffuse interlobular septal thickening with patchy bilateral airspace opacities and dense consolidation within the lower lobes posteriorly. This favors a multifocal pneumonia and could be due to aspiration. A superimposed pulmonary edema is also suspected. IMPRESSION: 1. No evidence for a central pulmonary embolus. 2. Bilateral airspace opacities most pronounced within the lower lobes which likely represents a pneumonia. This could be due to aspiration. 3. Suspect superimposed pulmonary edema. ACT 112: Negative or not required by law. Electronically signed by: Red Wiley M.D. 04/13/2022 8:55 AM Renal Ultrasound 04/14/22 12:59 RENAL ULTRASOUND CLINICAL HISTORY: elevated creatinine COMPARISON STUDY: CT of the abdomen and pelvis April 11, 2022. TECHNIQUE: Sonography of the kidneys and the urinary bladder was performed. FINDINGS: The right kidney measures 12.7 cm in maximal dimension and the left measures 12.3 cm. There is no hydronephrosis. No renal calculi are present. Ureteral jets were not visualized. Hepatic steatosis is incidentally noted. IMPRESSION: No hydronephrosis. Unremarkable sonographic appearance of the kidneys. ACT 112: Negative or not required by law. Electronically signed by: Martínez Anand M.D. 04/14/2022 2:27 PM Chest X-Ray 04/15/22 18:28 XR chest 1V portable CLINICAL HISTORY: Respiratory distress. COMPARISON STUDY: Chest radiograph and chest CT April 12, 2022. FINDINGS: There is no pneumothorax. No definite pleural effusion is noted. Extensive bilateral airspace opacities have slightly progressed. Interstitial thickening is also noted. Cardiomediastinal silhouette is stable. IMPRESSION: Progression of extensive bilateral airspace opacities with interstitial thickening. The findings favor pneumonia or aspiration pneumonitis. Superimposed pulmonary edema cannot be excluded. ACT 112: Negative or not required by law. Electronically signed by: Martínez Anand M.D. 04/15/2022 6:46 PM Medications Administered Home Medications clonidine HCl 0.2 mg tablet 0.2 mg PO BID 02/01/18 [History Confirmed 04/11/22] sennosides 8.6 mg tablet (senna) 8.6 mg PO BID 09/21/18 [History Confirmed 04/11/22] clonazepam 0.5 mg tablet 0.25 mg PO QAM 09/30/18 [History Confirmed 04/12/22] lancets (Lancets,Thin) #50 ea 11/07/19 [Rx Confirmed 04/11/22] bupropion HCl 300 mg 24 hr tablet, extended release 300 mg PO QAM 05/05/20 [H istory Confirmed 04/11/22] aspirin 81 mg chewable tablet 81 mg PO QAM 06/09/20 [History Confirmed 04/11/22] aripiprazole 15 mg tablet 15 mg PO QAM 07/31/20 [History Confirmed 04/11/22] buspirone 15 mg tablet 15 mg PO BID 07/31/20 [History Confirmed 04/11/22] quetiapine 50 mg tablet (Seroquel) 50 mg PO TID 07/31/20 [History Confirmed 04/11/22] doxepin 10 mg capsule 10 mg PO HS 02/07/21 [History Confirmed 04/11/22] omeprazole 40 mg capsule,delayed release 40 mg PO DAILYBB 05/21/21 [History Confirmed 04/11/22] carvedilol 6.25 mg tablet 6.25 mg PO BID 04/11/22 [History Confirmed 04/11/22] divalproex 500 mg tablet,extended release 24 hr 1,500 mg PO HS 04/11/22 [History Confirmed 04/11/22] furosemide 40 mg tablet 40 mg PO DAILY 04/11/22 [History Confirmed 04/12/22] levothyroxine 75 mcg tablet 75 mcg PO DAILYBB 04/11/22 [History Confirmed 04/11/22] lisinopril 10 mg tablet 10 mg PO DAILY 04/11/22 [History Confirmed 04/11/22] metformin 850 mg tablet 850 mg PO BID 04/11/22 [History Confirmed 04/11/22] multivitamin (Daily-Ezekiel tablet) 1 tab PO QAM 04/11/22 [History Confirmed 04/11/22] risperidone 0.25 mg tablet 0.25 mg PO DAILY 04/11/22 [History Confirmed 04/11/22] venlafaxine 37.5 mg capsule,extended release 24 hr 37.5 mg PO QAM 04/11/22 [History Confirmed 04/11/22] venlafaxine 75 mg capsule,extended release 24 hr 75 mg PO QAM 04/11/22 [History Confirmed 04/11/22] Active Medications Acetaminophen (Acetaminophen 325 Mg Tab) 650 mg PO Q4H PRN PRN Reason: Pain or Fever Stop: 05/12/22 02:48 Last Admin: 04/13/22 15:58 Dose: 650 mg Al Hydrox/Mg Hydrox/Simethicone (Aluminum/Magnesium Susp 30 Ml Udc) 15 ml PO Q4H PRN PRN Reason: Dyspepsia Stop: 05/12/22 02:48 Albuterol (Albut/Ipratrop 3mg/0.5mg Neb 3 Ml Vial) 3 ml NEB Q6 SUPRIYA; Protocol Stop: 05/16/22 17:59 Albuterol (Albuterol 0.083% Nebu Soln 3 Ml Vial) 2.5 mg NEB Q4 PRN; Protocol PRN Reason: wheeze, dyspnea, not controlle Stop: 05/16/22 12:51 Amlodipine Besylate (Amlodipine Besylate 5 Mg Tab) 2.5 mg PO [facility] Stop: 05/12/22 08:59 Last Admin: 04/14/22 07:49 Dose: 2.5 mg Aripiprazole (Aripiprazole 15 Mg Tab) 15 mg PO [facility] Stop: 05/12/22 08:59 Last Admin: 04/16/22 08:23 Dose: 15 mg Aspirin (Aspirin 81 Mg Chew) 81 mg PO [facility] Stop: 05/12/22 08:59 Last Admin: 04/16/22 08:11 Dose: 81 mg Bupropion HCl (Bupropion Xl 300 Mg Tabcr) 300 mg PO [facility] Stop: 05/12/22 08:59 Last Admin: 04/16/22 07:57 Dose: 300 mg Buspirone HCl (Buspirone 15 Mg Tab) 15 mg PO BID [facility] Stop: 05/12/22 08:59 Last Admin: 04/16/22 07:56 Dose: 15 mg Carvedilol (Carvedilol 6.25 Mg Tab) 6.25 mg PO BID [facility] Stop: 05/12/22 08:59 Last Admin: 04/16/22 07:56 Dose: 6.25 mg Clonazepam (Clonazepam 0.25 Mg Tab) 0.25 mg PO BID@ [facility] Stop: 05/12/22 07:59 Last Admin: 04/16/22 08:11 Dose: 0.25 mg Clonidine HCl (Clonidine Hcl 0.1 Mg Tab) 0.2 mg PO BID@ [facility] Stop: 05/12/22 07:59 Last Admin: 04/14/22 07:52 Dose: 0.2 mg Dextrose (Dextrose 50% 50 Ml Syringe) 25 - 50 ml IV UD PRN; Protocol PRN Reason: Hypoglycemia Protocol Stop: 05/12/22 03:12 Divalproex Sodium (Divalproex Extended Release 500 Mg Tab) 1,500 mg PO HS [facility] Stop: 05/12/22 20:59 Last Admin: 04/15/22 21:03 Dose: 1,500 mg Doxepin HCl (Doxepin Hcl 10 Mg Capsule) 10 mg PO HS [facility] Stop: 05/12/22 20:59 Last Admin: 04/15/22 21:03 Dose: 10 mg Furosemide (Furosemide Inj 20 Mg/2 Ml Vial) 20 mg IV [id number] [facility] Stop: 05/16/22 09:44 Last Admin: 04/16/22 10:22 Dose: 20 mg Glucagon (Glucagon For Inj 1 Mg Vial) 1 mg SQ UD PRN; Protocol PRN Reason: Hypoglycemia Protocol Stop: 05/12/22 03:12 Glucose (Glucose 40% Gel 15 Gm Tube) 15 - 30 gm PO UD PRN; Protocol PRN Reason: Hypoglycemia Protocol Stop: 05/12/22 03:12 Glucose (Glucose 10 Tab/Tube) 4 - 8 tab PO UD PRN; Protocol PRN Reason: Hypoglycemia Treatment Stop: 05/12/22 03:12 Guaifenesin (Guaifenesin 200 Mg Tab) 200 mg PO Q6H [facility] Stop: 05/13/22 16:59 Last Admin: 04/16/22 10:23 Dose: 200 mg Heparin Sodium (Porcine) (Heparin Sod 5,000 Unit/0.5 Ml Vial) 5,000 units SQ Q12 [facility] Stop: 05/13/22 20:59 Last Admin: 04/16/22 08:02 Dose: 5,000 units Doxycycline Hyclate 100 mg/ (Dextrose) 110 mls @ 50 mls/hr IV Q12H [facility] Stop: 04/19/22 21:59 Last Infusion: 04/16/22 11:57 Dose: Infused Cefepime HCl 2,000 mg/ Syringe 20 mls @ 5 mls/min IV Q12H [facility]; Protocol Stop: 04/22/22 19:59 Last Admin: 04/16/22 08:11 Dose: 5 mls/min Insulin Aspart (Insulin Aspart Per Unit) 0 units SC ACHS [facility] Stop: 05/12/22 07:29 Last Admin: 04/16/22 11:51 Dose: Not Given Insulin Glargine (Lantus Per Unit Charge) 9 units SQ BID [facility] Stop: 05/12/22 08:59 Last Admin: 04/16/22 08:30 Dose: 9 units Levothyroxine Sodium (Levothyroxine Sodium 75 Mcg Tablet) 75 mcg PO DAILYBB SUPRIYA Stop: 05/12/22 06:29 Last Admin: 04/16/22 06:20 Dose: 75 mcg Lisinopril (Lisinopril 10 Mg Tab) 10 mg PO DAILY SUPRIYA Stop: 05/12/22 08:59 Last Admin: 04/13/22 08:36 Dose: 10 mg Magnesium Hydroxide (Magnesium Hydroxide Susp 30 Ml Udc) 30 ml PO Q12H PRN PRN Reason: Constipation Stop: 05/12/22 02:48 Miscellaneous (Carbohydrates For Hypoglycemia ) 15 - 30 gm PO UD PRN PRN Reason: Hypoglycemia Protocol Stop: 05/12/22 03:12 Oseltamivir Phosphate (Oseltamivir Phosphate Susp 30 Mg/5 Ml Udp) 30 mg PO BID [facility]; Protocol Stop: 04/16/22 23:59 Last Admin: 04/16/22 08:22 Dose: 30 mg Pantoprazole Sodium (Pantoprazole 40 Mg Tab) 40 mg PO DAILY@0700 [facility] Stop: 05/12/22 06:59 Last Admin: 04/16/22 07:43 Dose: 40 mg Polyethylene Glycol (Polyethylene (Miralax) 17 Gm Pack) 17 gm PO DAILY PRN PRN Reason: Constipation Stop: 05/12/22 02:48 Potassium Chloride (Potassium Chloride 10 Meq Tabcr) 10 meq PO BID [facility] Stop: 05/16/22 09:44 Last Admin: 04/16/22 10:23 Dose: 10 meq Quetiapine Fumarate (Quetiapine Fumarate 25 Mg Tablet) 50 mg PO TID@0800,1400,2000 [facility] Stop: 05/12/22 07:59 Last Admin: 04/16/22 07:56 Dose: 50 mg Risperidone (Risperidone 0.5 Mg Tablet) 0.25 mg PO DAILY [facility] Stop: 05/12/22 08:59 Last Admin: 04/16/22 07:57 Dose: 0.5 mg Sennosides (Senna 8.6 Mg Tab) 8.6 mg PO BID [facility] Stop: 05/12/22 08:59 Last Admin: 04/16/22 08:03 Dose: 8.6 mg Sodium Chloride (Sodium Chlor 7% 4 Ml Neb) 4 ml NEB BIDR [facility] Stop: 05/14/22 18:59 Last Admin: 04/16/22 05:52 Dose: Not Given Venlafaxine HCl (Venlafaxine Hcl Xr 37.5 Mg Capxr) 37.5 mg PO QAM [facility] Stop: 05/12/22 08:59 Last Admin: 04/16/22 07:57 Dose: 37.5 mg Venlafaxine HCl (Venlafaxine Hcl Xr 75 Mg Capxr) 75 mg PO QAM [facility] Stop: 05/12/22 08:59 Last Admin: 04/16/22 07:57 Dose: 75 mg PG Care Time/CCT Total # of Minutes Spent Total Time Spent with Patient: Total time spent is greater than 50% in coordination of care (as documented) at patient's floor/unit and/or counseling patient: Coding Level of Care Code 17644 INT INP/OBS CARE 375MIN Diagnoses Influenza A J10.1 Acute respiratory failure with hypoxia J96.01 Chronic heart failure with reduced ejection fraction and diastolic dysfunction I50.42 Acute renal insufficiency N28.9 Intellectual disability F79
[2022-04-16 10:42] LABS: Basophils # (auto) 0.03 K/uL (0-0.2); Basophils % (auto) 0.5 %; Eosinophils # (auto) 0.01 K/uL (0-0.50); Eosinophils % (auto) 0.2 %; Hematocrit (blood only) 30.4 % (40.1-51.0); Hemoglobin 10.3 g/dl (14.0-18.0); Immature Granulocytes # (auto) 0.18 K/uL (0.00-0.02); Immature Granulocytes % (auto) 2.9 %; Lymphocytes # (auto) 1.23 K/uL (1.2-3.4); Lymphocytes % (auto) 19.5 %; Mean Corpuscular Hemoglobin 31.7 pg (25.0-34.0); Mean Corpuscular Hgb Conc 33.9 g/dL (32.0-36.0); Mean Corpuscular Volume 93.5 fL (80.0-100.0); Mean Platelet Volume 11.7 fL (9.4-12.4); Monocytes # (auto) 0.64 K/uL (0.24-0.82); Monocytes % (auto) 10.1 %; Neutrophils # (auto) 4.22 K/uL (1.4-6.5); Neutrophils % (auto) 66.8 %; Nucleated RBC # (auto) 0.03 K/uL (0-0); Nucleated RBC % (auto) 0.5 %; Platelet Count 132 K/uL (130-400); RDW Coefficient of Variation 14.3 % (11.5-14.5); RDW Standard Deviation 48.5 fL (36.4-46.3); Red Blood Count 3.25 M/uL (4.63-6.08); White Blood Count 6.31 K/ul (4.8-10.8)
[2022-04-16] MEDS ORDERED: ALBUTEROL 0.083% NEBU SOLN 3 ML VIAL NEB PRN (12:52)
[2022-04-16 16:01] LABS: iSTAT Allen Test Pass; iSTAT Art Bld Gas pCO2 Correct 34 mmHg (35-46); iSTAT Art Bld Gas pH Corrected 7.418 (7.35-7.45); iSTAT Arterial Blood Gas HCO3 22 meg/L (19-24); iSTAT Arterial Blood Gas pCO2 33 mmHg (35-46); iSTAT Arterial Blood Gas pH 7.43 (7.35-7.45); iSTAT Arterial Blood Gas pO2 57 mmHg (80-95); iSTAT Arterial Blood Gas pO2 C 61; iSTAT Carbon Dioxide 23 mmol/L (24-31); iSTAT FiO2 7 %; iSTAT Hematocrit 31 % (42-52); iSTAT Hemoglobin 10.5 g/dl (14.0-18.0); iSTAT Site L Radial; iSTAT Sodium 142 mmol/L (135-144)
--- NOTE | 2022-04-16 17:25 | Cardiology Progress Note ---
Date of Service April 16, 2022 Assessment & Plan (1) Influenza A: (2) Aspiration pneumonia: (3) Acute respiratory failure with hypoxia: (4) Elevated troponin I level: (5) Chronic heart failure with reduced ejection fraction and diastolic dysfunction: (6) Acute renal insufficiency: (7) Contrast dye induced nephropathy: Plan 66-year-old patient admitted with acute hypoxic respiratory failure secondary to influenza A with bilateral pneumonia, possible aspiration. Elevated troponin secondary to demand ischemia in the setting of acute respiratory failure/hypoxia and acute renal failure. ECG without ischemic changes. Repeat echocardiogram with stable findings. Renal function improving. Agree with restarting furosemide with potassium supplementation. Follow daily weight, fluid balance, GFR, and electrolytes. Admission and Anticipated Discharge Date Admission Date: April 12, 2022 Subjective Patient seen examined the bedside. More alert today. Blood pressure trending upward. No dysrhythmias on telemetry. Creatinine trending downward. Review of Systems Review of Systems: Unobtainable due to cognitive status Physical Exam Constitutional: + ill appearing and + obese Respiratory: no respiratory distress and no retractions Auscultation: + crackles (Right base) and + rhonchi (Bilateral); no wheezes Cardiovascular: Rate/Rhythm: regular rate and regular rhythm Heart Sounds: normal S1 and normal S2; no murmur Vessels: radial pulses present; no JVD and no carotid bruit Extremities: no edema Gastrointestinal (Abdomen): Inspection/Auscultation: abdomen normal to inspection and normal bowel sounds; abdomen not distended Percussion/Palpation: abdomen soft; abdomen nontender, no guarding and abdomen not rigid Neurologic: moves all extremities Results & Data ([facility]) Vital Signs (Past 12 Hours) Vital Signs Temp Pulse Resp BP Pulse Ox O2 Del Method O2 Flow Rate 04/16/22 15:09 37.0 C 91 H 20 176/94 H 95 Oxymask 04/16/22 11:34 37.5 C 81 20 156/77 H 95 Oxymask 10 04/16/22 09:36 85 92 Oxymask 04/16/22 08:00 Oxymask 04/16/22 07:30 37.6 C H 89 18 177/92 H 89 L Oxymask 10 04/16/22 05:51 24 High Flow Nasal Cannula 40 FiO2 04/16/22 15:09 04/16/22 11:34 04/16/22 09:36 04/16/22 08:00 04/16/22 07:30 04/16/22 05:51 90
[2022-04-16] MEDS: ALBUT/IPRATROP 3MG/0.5MG NEB 3 ML VIAL NEB SCH (17:30)
[2022-04-16] MEDS: DIVALPROEX EXTENDED RELEASE 500 MG TAB PO SCH (21:07)
[2022-04-16] MEDS: ACETAMINOPHEN 325 MG TAB PO PRN (21:09)
[2022-04-16] MEDS: DOXEPIN HCL 10 MG CAPSULE PO SCH (21:09)
[2022-04-17] MEDS: ALBUT/IPRATROP 3MG/0.5MG NEB 3 ML VIAL NEB SCH ×4 (00:15→17:57)
[2022-04-17] MEDS: guaiFENesin 200 MG TAB PO SCH ×4 (05:48→22:43)
[2022-04-17] MEDS: LEVOTHYROXINE SODIUM 75 MCG TABLET PO SCH (05:48)
[2022-04-17 06:27] LABS: Hematocrit (blood only) 31.1 % (40.1-51.0); Hemoglobin 10.4 g/dl (14.0-18.0); Mean Corpuscular Hemoglobin 32.1 pg (25.0-34.0); Mean Corpuscular Hgb Conc 33.4 g/dL (32.0-36.0); Mean Platelet Volume 10.7 fL (9.4-12.4); Nucleated RBC # (auto) 0.06 K/uL (0-0); Nucleated RBC % (auto) 0.8 %; Platelet Count 144 K/uL (130-400); RDW Coefficient of Variation 14.2 % (11.5-14.5); RDW Standard Deviation 49.7 fL (36.4-46.3); Red Blood Count 3.24 M/uL (4.63-6.08); White Blood Count 7.36 K/ul (4.8-10.8)
[2022-04-17 07:00] LABS: Albumin Globulin Ratio 0.8 (0.9-2); Albumin Level 3.3 gm/dl (3.4-5.0); BUN Creatinine Ratio 20.4 (10-20); Bilirubin,Total 0.5 mg/dl (0.2-1.0); Calcium 8.4 mg/dl (8.5-10.1); Est GFR (African American) 60.1 ml/min; Est GFR (Non-African American) 51.8 ml/min; Globulin 4.1 gm/dl (2.5-4.0); Magnesium 2.1 mg/dl (1.7-2.4); Phosphorus 2.8 mg/dl (2.5-4.9); Potassium 3.8 mmol/L (3.5-5.1); Total Protein 7.4 gm/dl (6.0-8.3)
[2022-04-17] MEDS: SODIUM CHLOR 7% 4 ML NEB NEB SCH ×2 (07:04→17:57)
[2022-04-17] MEDS: PANTOprazole 40 MG TAB PO SCH (07:26)
[2022-04-17] MEDS: INSULIN ASPART PER UNIT SC SCH ×4 (07:31→20:14)
[2022-04-17] MEDS: QUEtiapine FUMARATE 25 MG TABLET PO SCH ×3 (07:35→20:24)
[2022-04-17] MEDS: clonazePAM 0.25 MG TAB PO SCH ×2 (07:35→20:23)
[2022-04-17] MEDS: VENLAFAXINE HCL XR 75 MG CAPXR PO SCH (08:09)
[2022-04-17] MEDS: POTASSIUM CHLORIDE 10 MEQ TABCR PO SCH (08:09)
[2022-04-17] MEDS: risperiDONE 0.5 MG TABLET PO SCH (08:09)
[2022-04-17] MEDS: ASPIRIN 81 MG CHEW PO SCH (08:09)
[2022-04-17] MEDS: carvediloL 6.25 MG TAB PO SCH ×2 (08:09→20:24)
[2022-04-17] MEDS: SENNA 8.6 MG TAB PO SCH ×2 (08:09→20:27)
[2022-04-17] MEDS: busPIRone 15 MG TAB PO SCH ×2 (08:09→20:26)
[2022-04-17] MEDS: buPROPion XL 300 MG TABCR PO SCH (08:10)
[2022-04-17] MEDS: LANTUS PER UNIT CHARGE SQ SCH ×2 (08:10→20:21)
[2022-04-17] MEDS: VENLAFAXINE HCL XR 37.5 MG CAPXR PO SCH (08:10)
[2022-04-17] MEDS: HEPARIN SOD 5,000 UNIT/0.5 ML VIAL SQ SCH ×2 (08:10→20:27)
[2022-04-17] MEDS: FUROSEMIDE INJ 20 MG/2 ML VIAL IV SCH ×3 (08:10→17:55)
[2022-04-17] MEDS: ARIPiprazole 15 MG TAB PO SCH (08:10)
--- NOTE | 2022-04-17 08:53 | XRay Report ---
XR chest 1V portable CLINICAL HISTORY: evaluate opacities and lung avila COMPARISON STUDY: Chest CT April 12, 2022. Chest radiograph April 15, 2022. FINDINGS: Old left clavicular fracture is incidentally noted. There is no pneumothorax . No pleural e ffusion is identified. Stable cardiomegaly. Multifocal airspace opacities and interstitial thickening are similar to prior exam. IMPRESSION: No change in extensive airspace opacities and interstitial thickening. The findings may r eflect multifocal pneumonia or pulmonary edema. ACT 112: Negative or not required by law. Electronically signed by: Martínez Anand M.D. 04/17/2022 8:51 AM
[2022-04-17] MEDS: CEFEPIME 2,000 MG in SYRINGE 0 ML IV SCH ×2 (09:02→17:55)
[2022-04-17] MEDS: DOXYCYCLINE HYCLATE 100 MG in DEXTROSE 5% 100 ML IV SCH ×2 (10:55→22:40)
--- NOTE | 2022-04-17 12:59 | Nephrology Progress Note ---
Date of Service April 17, 2022 Assessment & Plan (1) Acute renal insufficiency: Plan: improving/resolved HESHAM secondary to acute tubular necrosis in the setting of today worsening hypoxia/respiratory failure with influenza A and aspiration pneumonia, labile blood pressure ( though no sustained periods of dramatic hypotension), and IV contrast 04/12. So the combination of hypoxia, relative hypotension, and contrast exposure is the cause of his ischemic acute tubular necrosis. Creatinine went quite fast from 1.3 (his baseline) ->3.41 within a span of 48 hours w/ peak on 04/14; today near baseline at 1.6. Renal u/s reassuring; no UA on file d/t challenges of collection and none currently indicated -continue to hold amlodipine and clonidine and lisinopril. Continue carvedilol. >avoid resuming clonidine if possible > it's hard to titrate appropriately >> >>improving 02 needs but still on hi flow > increase frequency standing lasix dose 20 mg IV from bid to tid (0600, noon, 1800, starting midday 04/17) >increased K to 20 mEq bid -stirct I/O -Avoid nephrotoxic agents as well as NSAIDs and contrast agent; cont to hold magnesium hydroxide, metformin. -daily bmp Admission and Anticipated Discharge Date Admission Date: April 12, 2022 Subjective lower 02 needs; older female relative at bedside; more lethargic today but d enies musculoskeletal; stable chronic abd pain; no worse sob Review of Systems Review of Systems: All systems reviewed & are unremarkable except as noted in Subjective and Unobtainable due to cognitive status (limited by cog status) Physical Exam Constitutional: well developed, well nourished and + obese; no acute distress Eyes: EOM intact bilaterally ENMT: Ears: no external ear abnormality Nose: no external nose abnormality Mouth: + dry oral mucous membranes Neck: no nuchal rigidity Respiratory: normal respiratory effort, + cough (dry) and + tachypneic; no respiratory distress, no labored breathing and + not able to speak in complete sentence Auscultation: + diminished lung sounds Cardiovascular: Rate/Rhythm: regular rate and regular rhythm Extremities: no edema Gastrointestinal (Abdomen): Inspection/Auscultation: normal bowel sounds Percussion/Palpation: abdomen soft; abdomen nontender Musculoskeletal: Extremities: strength 5/5 throughout Skin: no rashes, warm and dry Neurologic: major, limited but appropriate speech, no tremor Psychiatric: Orientation: oriented to person, oriented to place and cooperative Genitourinary: lehman w/ ample clear urine Results & Data ([facility]) Vital Signs (Past 12 Hours) Vital Signs Temp Pulse Resp BP Pulse Ox Pulse Ox O2 Del Method 04/17/22 12:15 36.9 C 71 20 172/94 H 94 Nasal Cannula 04/17/22 07:38 Oxymask 04/17/22 07:04 74 18 92 Oxymask 04/17/22 04:00 95 04/17/22 03:33 36.8 C 74 18 146/90 H 95 Oxymask O2 Del Method O2 Flow Rate O2 Flow Rate 04/17/22 12:15 6.0 04/17/22 07:38 10 04/17/22 07:04 10 04/17/22 04:00 Oxymask 10 04/17/22 03:33 10 Laboratory Results 04/17/22 05:34 04/17/22 05:34
[2022-04-17] MEDS: POTASSIUM CHLORIDE CRTAB 20 MEQ TABCR PO SCH ×2 (13:31→20:23)
--- NOTE | 2022-04-17 14:24 | Hospitalist Progress Note ---
Date of Service April 17, 2022 Assessment & Plan (1) Influenza A: (2) Acute respiratory failure with hypoxia: Plan: Possible related to upper respiratory viral vs aspiration Patient brought in with complaint of nausea, vomiting, fever, shortness of breath, wheezing Patient found to be influenza A positive at admission CXR showed Patchy bilateral airspace opacities. CTA showed no evidence for a central pulmonary embolus. Bilateral airspace opacities most pronounced within the lower lobes which likely represents a pneumonia. Suspect superimposed pulmonary edema. Continue IV Unasyn and doxycycline -> switched to cefepime and doxy Speech consulted - recommended minced and moist diet with thin liquid. Speech will continue to assess him Continue aspiration precaution Continue flutter valve, incentive spirometry, hypertonic saline and chest PT Continue neb treatment 04/15/22 Respiratory distress possible related to episode of aspiration vs pulmonary edema CXR showed progression of extensive bilateral airspace opacities with interstitial thickening. The findings favor pneumonia or aspiration pneumonitis. Will hold IVF Lasix 40mg IV x1 ( Nephrology was notified ) Will place on high flow oxygen Continue neb treatment, hypertonic saline, chest PT Change abx to cefepime and continue doxycycline Speech on board Pulmonary consulted, appreciate their input -component of diastolic heart failure, recommend to continue diuresis. Continue antibiotics for 10 days. Flutter valve recommended however due to patient's intellectual disability, he is uncooperative Continue monitor closely (3) Elevated troponin: Plan: Elevated troponin I level Mostly demand ischemia due to acute respiratory failure Troponin peaked 1157, now trending 896 cardiology on board Pt was started on IV heparin drip that was discontinued after discussing case with cardiology ECHO showed Large sized apical, septal, anteroseptal, inferior wall motion abnormality with hypokinesis to akinesis of the segment. Ejection fraction 50 to 55% Continue aspirin and carvedilol Transaminitis Elevated Liver enzymes with AST 167 and ALT 123, continue trending down CT abd/pelvis showed no bowel wall thickening or obstruction. Continue monitor liver enzymes Acute kidney injury Mostly due to acute illness in the setting of diuretic creatinine increased to 3.4 Renal U/S showed no no hydronephrosis. creatinine trending down to 1.4 today (04/17) Nephrology consulted - continue with 20 IV lasix and increase to TID Continue monitor closely for volume overload Fever last fever yesterday evening (04/16 evening) Mostly due to Influenza A or aspiration pna No leukocytosis Blood cx no growth in 48 hrs Continue abx with Cefepime and doxycycline Continue monitor Hyponatremia Na 132 on admission Na 137 today Continue monitor BMP Hypothyroidism Continue Levothyroxine DVT prophylaxis: Heparin subcu DNR/DNI Admission and Anticipated Discharge Date Admission Date: April 12, 2022 Subjective Pt seen in follow up of respiratory distress , + Influenza A Lying in bed on 6 NC Patient sleeping this morning on my exam, however easily arousable. Denies any complaints. Respiratory status improving, and creatinine improved this morning as well. Patient is diuresing well. Nephrology following. Seen patient with RN. No caregiver at the bedside. Pulmonary medicine also following Review of Systems Review of Systems: All systems reviewed & are unremarkable except as noted in Subjective Physical Exam Physical Exam: General- laying in bed, on 6l NC Head- atraumatic Eyes- PERRL, EOMI, ENT- oropharynx clear Neck- supple, no JVD Lungs- decreased air entry, + crackles Heart- regular rhythm; no murmur Abdomen- normal bowel sounds, soft, nontender Extremities- no calf tenderness Neuro-sleepy but easily arousable, able to answer simple questions appropriately , moves extremities (poor historian d/t intel. disability) Skin- warm & dry Results & Data Results & Data ([facility]) Vital Signs (Past 12 Hours) Vital Signs Temp Pulse Resp BP Pulse Ox Pulse Ox O2 Del Method 04/17/22 13:04 82 20 95 Nasal Cannula 04/17/22 12:15 36.9 C 71 20 172/94 H 94 Nasal Cannula 04/17/22 07:38 Oxymask 04/17/22 07:04 74 18 92 Oxymask 04/17/22 04:00 95 04/17/22 03:33 36.8 C 74 18 146/90 H 95 Oxymask O2 Del Method O2 Flow Rate O2 Flow Rate 04/17/22 13:04 6 04/17/22 12:15 6.0 04/17/22 07:38 10 04/17/22 07:04 10 04/17/22 04:00 Oxymask 10 04/17/22 03:33 10 Laboratory Results 04/17/22 04/17/22 04/17/22 Range/Units 11:25 07:14 05:34 WBC (4.8-10.8) K/ul RBC (4.63-6.08) M/uL Hgb (14.0-18.0) g/dl POC Hgb (14.0-18.0) g/dl Hct (40.1-51.0) % POC Hct (42-52) % MCV (80.0-100.0) fL MCH (25.0-34.0) pg MCHC (32.0-36.0) g/dL RDW Std Deviation (36.4-46.3) fL RDW Coeff of Josiah (11.5-14.5) % Plt Count (130-400) K/uL MPV (9.4-12.4) fL Absolute Nucleated RBC (0-0) K/uL Nucleated RBC % (auto) % Sample Site POC pH (7.35-7.45) POC pCO2 (35-46) mmHg POC pO2 (80-95) mmHg POC HCO3 (19-24) marichuy/L POC Total CO2 (24-31) mmol/L POC Base Excess (-9-1.8) marichuy/L ABG pH (Temp Correct) (7.35-7.45) ABG pCO2 (Temp Corrct (35-46) mmHg POC ABG pO2 at Pt Temp POC ABG O2 Sat (90-95) % Valentin Test O2 Delivery Device POC FiO2 % POC Sodium (135-144) mmol/L Sodium (136-145) mmol/L POC Potassium (3.3-5.0) mmol/L Potassium (3.5-5.1) mmol/L Chloride (98-107) mmol/L Carbon Dioxide (21-32) mmol/L Anion Gap (3-11) BUN (6-23) mg/dl Creatinine (0.6-1.4) mg/dl Est Cr Clr Drug Dosing ml/min Est GFR ( Amer) ml/min Est GFR (Non-Af Amer) ml/min BUN/Creatinine Ratio (10-20) Glucose (70-99(Fasting)) mg/dl POC Glucose 92 92 (70-99) mg/dl Calcium (8.5-10.1) mg/dl Phosphorus (2.5-4.9) mg/dl Magnesium (1.7-2.4) mg/dl Total Bilirubin (0.2-1.0) mg/dl AST (13-39) U/L ALT (7-52) U/L Alkaline Phosphatase (34-104) U/L B-Natriuretic Peptide 95 (0-100) pg/ml Total Protein (6.0-8.3) gm/dl Albumin (3.4-5.0) gm/dl Globulin (2.5-4.0) gm/dl Albumin/Globulin Ratio (0.9-2) 04/17/22 04/17/22 04/16/22 Range/Units 05:34 05:34 21:36 WBC 7.36 (4.8-10.8) K/ul RBC 3.24 L (4.63-6.08) M/uL Hgb 10.4 L (14.0-18.0) g/dl POC Hgb (14.0-18.0) g/dl Hct 31.1 L (40.1-51.0) % POC Hct (42-52) % MCV 96.0 (80.0-100.0) fL MCH 32.1 (25.0-34.0) pg MCHC 33.4 (32.0-36.0) g/dL RDW Std Deviation 49.7 H (36.4-46.3) fL RDW Coeff of Josiah 14.2 (11.5-14.5) % Plt Count 144 (130-400) K/uL MPV 10.7 (9.4-12.4) fL Absolute Nucleated RBC 0.06 H (0-0) K/uL Nucleated RBC % (auto) 0.8 % Sample Site POC pH (7.35-7.45) POC pCO2 (35-46) mmHg POC pO2 (80-95) mmHg POC HCO3 (19-24) marichuy/L POC Total CO2 (24-31) mmol/L POC Base Excess (-9-1.8) marichuy/L ABG pH (Temp Correct) (7.35-7.45) ABG pCO2 (Temp Corrct (35-46) mmHg POC ABG pO2 at Pt Temp POC ABG O2 Sat (90-95) % Valentin Test O2 Delivery Device POC FiO2 % POC Sodium (135-144) mmol/L Sodium 137 (136-145) mmol/L POC Potassium (3.3-5.0) mmol/L Potassium 3.8 (3.5-5.1) mmol/L Chloride 103 (98-107) mmol/L Carbon Dioxide 25 (21-32) mmol/L Anion Gap 9 (3-11) BUN 29 H (6-23) mg/dl Creatinine 1.42 H (0.6-1.4) mg/dl Est Cr Clr Drug Dosing 66.0 ml/min Est GFR ( Amer) 60.1 ml/min Est GFR (Non-Af Amer) 51.8 ml/min BUN/Creatinine Ratio 20.4 H (10-20) Glucose 94 (70-99(Fasting)) mg/dl POC Glucose 104 H (70-99) mg/dl Calcium 8.4 L (8.5-10.1) mg/dl Phosphorus 2.8 (2.5-4.9) mg/dl Magnesium 2.1 (1.7-2.4) mg/dl Total Bilirubin 0.5 (0.2-1.0) mg/dl AST 43 H (13-39) U/L ALT 31 (7-52) U/L Alkaline Phosphatase 40 (34-104) U/L B-Natriuretic Peptide (0-100) pg/ml Total Protein 7.4 (6.0-8.3) gm/dl Albumin 3.3 L (3.4-5.0) gm/dl Globulin 4.1 H (2.5-4.0) gm/dl Albumin/Globulin Ratio 0.8 L (0.9-2) 04/16/22 04/16/22 04/16/22 Range/Units 19:53 17:30 16:40 WBC (4.8-10.8) K/ul RBC (4.63-6.08) M/uL Hgb (14.0-18.0) g/dl POC Hgb (14.0-18.0) g/dl Hct (40.1-51.0) % POC Hct (42-52) % MCV (80.0-100.0) fL MCH (25.0-34.0) pg MCHC (32.0-36.0) g/dL RDW Std Deviation (36.4-46.3) fL RDW Coeff of Josiah (11.5-14.5) % Plt Count (130-400) K/uL MPV (9.4-12.4) fL Absolute Nucleated RBC (0-0) K/uL Nucleated RBC % (auto) % Sample Site POC pH (7.35-7.45) POC pCO2 (35-46) mmHg POC pO2 (80-95) mmHg POC HCO3 (19-24) marichuy/L POC Total CO2 (24-31) mmol/L POC Base Excess (-9-1.8) marichuy/L ABG pH (Temp Correct) (7.35-7.45) ABG pCO2 (Temp Corrct (35-46) mmHg POC ABG pO2 at Pt Temp POC ABG O2 Sat (90-95) % Valentin Test O2 Delivery Device POC FiO2 % POC Sodium (135-144) mmol/L Sodium (136-145) mmol/L POC Potassium (3.3-5.0) mmol/L Potassium (3.5-5.1) mmol/L Chloride (98-107) mmol/L Carbon Dioxide (21-32) mmol/L Anion Gap (3-11) BUN (6-23) mg/dl Creatinine (0.6-1.4) mg/dl Est Cr Clr Drug Dosing ml/min Est GFR ( Amer) ml/min Est GFR (Non-Af Amer) ml/min BUN/Creatinine Ratio (10-20) Glucose (70-99(Fasting)) mg/dl POC Glucose 79 95 (70-99) mg/dl Calcium (8.5-10.1) mg/dl Phosphorus (2.5-4.9) mg/dl Magnesium (1.7-2.4) mg/dl Total Bilirubin (0.2-1.0) mg/dl AST (13-39) U/L ALT (7-52) U/L Alkaline Phosphatase (34-104) U/L B-Natriuretic Peptide 145 H (0-100) pg/ml Total Protein (6.0-8.3) gm/dl Albumin (3.4-5.0) gm/dl Globulin (2.5-4.0) gm/dl Albumin/Globulin Ratio (0.9-2) 04/15/22 Range/Units 19:08 WBC (4.8-10.8) K/ul RBC (4.63-6.08) M/uL Hgb (14.0-18.0) g/dl POC Hgb 10.5 L (14.0-18.0) g/dl Hct (40.1-51.0) % POC Hct 31 L (42-52) % MCV (80.0-100.0) fL MCH (25.0-34.0) pg MCHC (32.0-36.0) g/dL RDW Std Deviation (36.4-46.3) fL RDW Coeff of Josiah (11.5-14.5) % Plt Count (130-400) K/uL MPV (9.4-12.4) fL Absolute Nucleated RBC (0-0) K/uL Nucleated RBC % (auto) % Sample Site L Radial POC pH 7.43 (7.35-7.45) POC pCO2 33 L (35-46) mmHg POC pO2 57 L (80-95) mmHg POC HCO3 22 (19-24) marichuy/L POC Total CO2 23 L (24-31) mmol/L POC Base Excess -2.0 (-9-1.8) marichuy/L ABG pH (Temp Correct) 7.418 (7.35-7.45) ABG pCO2 (Temp Corrct 34 L (35-46) mmHg POC ABG pO2 at Pt Temp 61 POC ABG O2 Sat 91.0 (90-95) % Valentin Test Pass O2 Delivery Device Oxyhood POC FiO2 7 % POC Sodium 142 (135-144) mmol/L Sodium (136-145) mmol/L POC Potassium 4.0 (3.3-5.0) mmol/L Potassium (3.5-5.1) mmol/L Chloride (98-107) mmol/L Carbon Dioxide (21-32) mmol/L Anion Gap (3-11) BUN (6-23) mg/dl Creatinine (0.6-1.4) mg/dl Est Cr Clr Drug Dosing ml/min Est GFR ( Amer) ml/min Est GFR (Non-Af Amer) ml/min BUN/Creatinine Ratio (10-20) Glucose (70-99(Fasting)) mg/dl POC Glucose (70-99) mg/dl Calcium (8.5-10.1) mg/dl Phosphorus (2.5-4.9) mg/dl Magnesium (1.7-2.4) mg/dl Total Bilirubin (0.2-1.0) mg/dl AST (13-39) U/L ALT (7-52) U/L Alkaline Phosphatase (34-104) U/L B-Natriuretic Peptide (0-100) pg/ml Total Protein (6.0-8.3) gm/dl Albumin (3.4-5.0) gm/dl Globulin (2.5-4.0) gm/dl Albumin/Globulin Ratio (0.9-2) Medications Administered Current Inpatient Medications Acetaminophen (Acetaminophen 325 Mg Tab) 650 mg PO Q4H PRN PRN Reason: Pain or Fever Stop: 05/12/22 02:48 Last Admin: 04/16/22 21:09 Dose: 650 mg Al Hydrox/Mg Hydrox/Simethicone (Aluminum/Magnesium Susp 30 Ml Udc) 15 ml PO Q4H PRN PRN Reason: Dyspepsia Stop: 05/12/22 02:48 Albuterol (Albut/Ipratrop 3mg/0.5mg Neb 3 Ml Vial) 3 ml NEB Q6R SUPRIYA; Protocol Stop: 05/16/22 18:59 Last Admin: 04/17/22 13:03 Dose: 3 ml Albuterol (Albuterol 0.083% Nebu Soln 3 Ml Vial) 2.5 mg NEB Q4R PRN; Protocol PRN Reason: wheeze, dyspnea, not controlle Stop: 05/16/22 12:51 Last Admin: 04/16/22 17:30 Dose: 2.5 mg Amlodipine Besylate (Amlodipine Besylate 5 Mg Tab) 2.5 mg PO [facility] Stop: 05/12/22 08:59 Last Admin: 04/14/22 07:49 Dose: 2.5 mg Aripiprazole (Aripiprazole 15 Mg Tab) [facility] Stop: 05/12/22 08:59 Last Admin: 04/17/22 08:10 Dose: 15 mg Aspirin (Aspirin 81 Mg Chew) 81 mg PO [facility] Stop: 05/12/22 08:59 Last Admin: 04/17/22 08:09 Dose: 81 mg Bupropion HCl (Bupropion Xl 300 Mg Tabcr) 300 mg PO [facility] Stop: 05/12/22 08:59 Last Admin: 04/17/22 08:10 Dose: 300 mg Buspirone HCl (Buspirone 15 Mg Tab) 15 mg PO BID [facility] Stop: 05/12/22 08:59 Last Admin: 04/17/22 08:09 Dose: 15 mg Carvedilol (Carvedilol 6.25 Mg Tab) 6.25 mg PO BID [facility] Stop: 05/12/22 08:59 Last Admin: 04/17/22 08:09 Dose: 6.25 mg Clonazepam (Clonazepam 0.25 Mg Tab) 0.25 mg PO BID@ [facility] Stop: 05/12/22 07:59 Last Admin: 04/17/22 07:35 Dose: 0.25 mg Clonidine HCl (Clonidine Hcl 0.1 Mg Tab) 0.2 mg PO BID@ [facility] Stop: 05/12/22 07:59 Last Admin: 04/14/22 07:52 Dose: 0.2 mg Dextrose (Dextrose 50% 50 Ml Syringe) 25 - 50 ml IV UD PRN; Protocol PRN Reason: Hypoglycemia Protocol Stop: 05/12/22 03:12 Divalproex Sodium (Divalproex Extended Release 500 Mg Tab) 1,500 mg PO [facility] Stop: 05/12/22 20:59 Last Admin: 04/16/22 21:07 Dose: 1,500 mg Doxepin HCl (Doxepin Hcl 10 Mg Capsule) 10 mg PO [facility] Stop: 05/12/22 20:59 Last Admin: 04/16/22 21:09 Dose: 10 mg Furosemide (Furosemide Inj 20 Mg/2 Ml Vial) 20 mg IV TID@0600,1200,1800 [facility] Stop: 05/17/22 12:09 Last Admin: 04/17/22 12:46 Dose: 20 mg Glucagon (Glucagon For Inj 1 Mg Vial) 1 mg SQ UD PRN; Protocol PRN Reason: Hypoglycemia Protocol Stop: 05/12/22 03:12 Glucose (Glucose 40% Gel 15 Gm Tube) 15 - 30 gm PO UD PRN; Protocol PRN Reason: Hypoglycemia Protocol Stop: 05/12/22 03:12 Glucose (Glucose 10 Tab/Tube) 4 - 8 tab PO UD PRN; Protocol PRN Reason: Hypoglycemia Treatment Stop: 05/12/22 03:12 Guaifenesin (Guaifenesin 200 Mg Tab) 200 mg PO Q6H [facility] Stop: 05/13/22 16:59 Last Admin: 04/17/22 12:45 Dose: 200 mg Heparin Sodium (Porcine) (Heparin Sod 5,000 Unit/0.5 Ml Vial) 5,000 units SQ Q12 [facility] Stop: 05/13/22 20:59 Last Admin: 04/17/22 08:10 Dose: 5,000 units Doxycycline Hyclate 100 mg/ (Dextrose) 110 mls @ 50 mls/hr IV Q12H [facility] Stop: 04/19/22 21:59 Last Infusion: 04/17/22 12:52 Dose: Infused Cefepime HCl 2,000 mg/ Syringe 20 mls @ 5 mls/min IV Q8H [facility]; Protocol Stop: 04/24/22 16:59 Insulin Aspart (Insulin Aspart Per Unit) 0 units SC ACHS [facility] Stop: 05/12/22 07:29 Last Admin: 04/17/22 12:46 Dose: Not Given Insulin Glargine (Lantus Per Unit Charge) 9 units SQ BID [facility] Stop: 05/12/22 08:59 Last Admin: 04/17/22 08:10 Dose: 9 units Levothyroxine Sodium (Levothyroxine Sodium 75 Mcg Tablet) 75 mcg PO DAILYBB [facility] Stop: 05/12/22 06:29 Last Admin: 04/17/22 05:48 Dose: 75 mcg Lisinopril (Lisinopril 10 Mg Tab) 10 mg PO DAILY [facility] Stop: 05/12/22 08:59 Last Admin: 04/13/22 08:36 Dose: 10 mg Magnesium Hydroxide (Magnesium Hydroxide Susp 30 Ml Udc) 30 ml PO Q12H PRN PRN Reason: Constipation Stop: 05/12/22 02:48 Miscellaneous (Carbohydrates For Hypoglycemia ) 15 - 30 gm PO UD PRN PRN Reason: Hypoglycemia Protocol Stop: 05/12/22 03:12 Pantoprazole Sodium (Pantoprazole 40 Mg Tab) 40 mg PO DAILY@0700 [facility] Stop: 05/12/22 06:59 Last Admin: 04/17/22 07:26 Dose: 40 mg Polyethylene Glycol (Polyethylene (Miralax) 17 Gm Pack) 17 gm PO DAILY PRN PRN Reason: Constipation Stop: 05/12/22 02:48 Potassium Chloride (Potassium Chloride Crtab 20 Meq Tabcr) 20 meq PO BID [facility] Stop: 05/17/22 12:59 Last Admin: 04/17/22 13:31 Dose: 20 meq Quetiapine Fumarate (Quetiapine Fumarate 25 Mg Tablet) 50 mg PO TID@0800,1400,2000 [facility] Stop: 05/12/22 07:59 Last Admin: 04/17/22 13:31 Dose: 50 mg Risperidone (Risperidone 0.5 Mg Tablet) 0.25 mg PO DAILY SUPRIYA Stop: 05/12/22 08:59 Last Admin: 04/17/22 08:09 Dose: 0.25 mg Sennosides (Senna 8.6 Mg Tab) 8.6 mg PO BID [facility] Stop: 05/12/22 08:59 Last Admin: 04/17/22 08:09 Dose: 8.6 mg Sodium Chloride (Sodium Chlor 7% 4 Ml Neb) 4 ml NEB BIDR [facility] Stop: 05/14/22 18:59 Last Admin: 04/17/22 07:04 Dose: 4 ml Venlafaxine HCl (Venlafaxine Hcl Xr 37.5 Mg Capxr) 37.5 mg PO QAM [facility] Stop: 05/12/22 08:59 Last Admin: 04/17/22 08:10 Dose: 37.5 mg Venlafaxine HCl (Venlafaxine Hcl Xr 75 Mg Capxr) 75 mg PO QAM [facility] Stop: 05/12/22 08:59 Last Admin: 04/17/22 08:09 Dose: 75 mg
--- NOTE | 2022-04-17 15:43 | Pulmonology Progress Note ---
Date of Service April 17, 2022 Assessment & Plan (1) Influenza A: (2) Acute respiratory failure with hypoxia: (3) Chronic heart failure with reduced ejection fraction and diastolic dysfunction: (4) Intellectual disability: Plan Patient HD #5 admitted for hypoxia with respiratory failure in the setting of influenza A infection. Aspiration pneumonitis/pneumonia likely exacerbating the above with likely component of pulmonary edema as well. Patient diuresed well overnight. Acute hypoxic respiratory failure - multifactorial, diastolic CHF as well as multilobar pneumonia possible aspiration playing a role - Aspiration pneumonitis likely exacerbating- continue with nebulizers and pulmonary toileting- may be intolerant to vest therapy- utilize bed in chair mode or OOB with flutter valve for postural drainage and expectoration of secretions - de-escalate abx likely within next 24 hours- as can't rule out bacterial infection at this time - due to his agitation and mental disability likely intolerant of CPAP/BiPAP- this as well likely inhibit expectoration of secretions- would recommend HFNC if escalation of oxygen therapy as needed - Continue with diuresing as you are- defer to nephrology and primary service - HFpEF- chronic - likely component of pulmonary edema on imaging- ECHO results reviewed- noting RWMA - defer fluid volume management to nephrology and cardiology- improved renal indices at this time following diuresing, as well as improved LFTS from admissio n- favoring a likely component to heart failure - re-introduce BP medications as able Plan: In/out: -1.8 L, urine output 3090 Complete total course antibiotics for 10 days Chest x-ray from today does not show any significant change compared to yesterday Continue with diuretics to keep the patient negative balance Incentive spirometry as flutter valve will be beneficial but because of patient's intellectual ability I do not think he will be able to follow commands No further recommendation from pulmonary perspective. We will sign off. Please call directly with any questions Case was discussed with Dr. Mcadams Please note the above document was generated using voice recognition software. It may contain grammatical, syntax or spelling errors.Any formal questions or concerns about the content, text or information contained within the body of this dictation should be directly addressed to the provider for clarification. Admission and Anticipated Discharge Date Admission Date: April 12, 2022 Subjective Patient seen and examined at bedside. No acute distress Was having breakfast at the time of examination Patient's sister was also in the room. He was saturating 91-92% on 6 L nasal cannula Denied any chest pain. Please note that patient is very hard to get history from Review of Systems Review of Systems: All systems reviewed & are unremarkable except as noted in Subjective Physical Exam Physical Exam: Constitutional: No acute distress HEENT: EOMI, PERRLA Respiratory system: Decreased air entry bilaterally, no wheeze, no rhonchi, positive crackles bilateral lower lobes CVS: S1-S2 positive, no murmurs or gallops Abdomen: Soft, nontender, nondistended, positive bowel sounds x4, obese Extremities: +2 pulses bilaterally radialis/ dorsalis pedis, no cyanosis, +1 pitting edema bilateral lower extremity Neuro: Awake alert oriented to self Psych: Normal mood and affect G/U: Positive Alfred Skin: no rashes, warm and dry Lymphatic: no cervical or axillary lymphadenopathy Results & Data Results & Data ([facility]) Vital Signs (Past 12 Hours) Vital Signs Temp Pulse Resp BP BP Pulse Ox Pulse Ox 04/17/22 15:13 36.6 C 76 20 167/107 H 91 04/17/22 13:04 82 20 95 04/17/22 12:15 36.9 C 71 20 172/94 H 94 04/17/22 07:38 04/17/22 07:04 74 18 92 04/17/22 04:00 95 O2 Del Method O2 Del Method O2 Flow Rate O2 Flow Rate 04/17/22 15:13 Nasal Cannula 6.0 04/17/22 13:04 Nasal Cannula 6 04/17/22 12:15 Nasal Cannula 6.0 04/17/22 07:38 Oxymask 10 04/17/22 07:04 Oxymask 10 04/17/22 04:00 Oxymask 10 Laboratory Results 04/17/22 05:34 04/17/22 05:34 PG Care Time/CCT Total # of Minutes Spent Total Time Spent with Patient: Total time spent is greater than 50% in coordination of care (as documented) at patient's floor/unit and/or counseling patient: Coding Level of Care Code 07087 SUB INP/OBS CARE 2/35MIN Diagnoses Influenza A J10.1 Acute respiratory failure with hypoxia J96.01 Chronic heart failure with reduced ejection fraction and diastolic dysfunction I50.42 Intellectual disability F79
[2022-04-17] MEDS: DOXEPIN HCL 10 MG CAPSULE PO SCH (20:24)
[2022-04-17] MEDS: DIVALPROEX EXTENDED RELEASE 500 MG TAB PO SCH (20:26)
[2022-04-18] MEDS: ALBUT/IPRATROP 3MG/0.5MG NEB 3 ML VIAL NEB SCH ×4 (00:12→23:19)
[2022-04-18] MEDS: CEFEPIME 2,000 MG in SYRINGE 0 ML IV SCH ×4 (00:56→23:43)
[2022-04-18] MEDS ORDERED: ONDANSETRON INJ 2 MG/ML 2 ML VIAL IV STA (04:35)
[2022-04-18] MEDS: LEVOTHYROXINE SODIUM 75 MCG TABLET PO SCH (05:03)
[2022-04-18] MEDS: FUROSEMIDE INJ 20 MG/2 ML VIAL IV SCH ×3 (05:03→17:20)
[2022-04-18] MEDS: guaiFENesin 200 MG TAB PO SCH ×4 (05:03→23:27)
[2022-04-18] MEDS: PANTOprazole 40 MG TAB PO SCH (05:47)
[2022-04-18] MEDS: SODIUM CHLOR 7% 4 ML NEB NEB SCH ×2 (07:05→23:19)
[2022-04-18] MEDS: clonazePAM 0.25 MG TAB PO SCH ×2 (07:41→21:11)
[2022-04-18] MEDS: carvediloL 6.25 MG TAB PO SCH ×2 (07:42→21:03)
[2022-04-18] MEDS: QUEtiapine FUMARATE 25 MG TABLET PO SCH ×3 (07:42→21:06)
[2022-04-18] MEDS: busPIRone 15 MG TAB PO SCH ×2 (07:43→21:04)
[2022-04-18] MEDS: buPROPion XL 300 MG TABCR PO SCH (07:43)
[2022-04-18] MEDS: risperiDONE 0.5 MG TABLET PO SCH (07:43)
[2022-04-18] MEDS: VENLAFAXINE HCL XR 75 MG CAPXR PO SCH (07:43)
[2022-04-18] MEDS: SENNA 8.6 MG TAB PO SCH ×2 (07:43→21:04)
[2022-04-18] MEDS: ARIPiprazole 15 MG TAB PO SCH (07:43)
[2022-04-18] MEDS: POTASSIUM CHLORIDE CRTAB 20 MEQ TABCR PO SCH ×2 (07:44→21:02)
[2022-04-18] MEDS: HEPARIN SOD 5,000 UNIT/0.5 ML VIAL SQ SCH ×2 (07:45→21:03)
[2022-04-18] MEDS: VENLAFAXINE HCL XR 37.5 MG CAPXR PO SCH (07:47)
[2022-04-18 07:57] LABS: Albumin Globulin Ratio 0.8 (0.9-2); Albumin Level 3.5 gm/dl (3.4-5.0); BUN Creatinine Ratio 20.4 (10-20); Bilirubin,Total 0.5 mg/dl (0.2-1.0); Calcium 8.8 mg/dl (8.5-10.1); Creatinine Clr Calc Pharmacy 63.7 ml/min; Est GFR (African American) 57.6 ml/min; Est GFR (Non-African American) 49.7 ml/min; Globulin 4.6 gm/dl (2.5-4.0); Phosphorus 3.3 mg/dl (2.5-4.9); Potassium 4.3 mmol/L (3.5-5.1); Total Protein 8.1 gm/dl (6.0-8.3)
[2022-04-18] MEDS: LANTUS PER UNIT CHARGE SQ SCH ×2 (08:00→21:07)
[2022-04-18] MEDS: ASPIRIN 81 MG CHEW PO SCH (08:01)
[2022-04-18] MEDS: INSULIN ASPART PER UNIT SC SCH ×4 (08:04→21:06)
--- NOTE | 2022-04-18 09:26 | Hospitalist Progress Note ---
Date of Service April 18, 2022 Assessment & Plan (1) Influenza A: (2) Acute respiratory failure with hypoxia: Plan: Possible related to upper respiratory viral vs aspiration Patient brought in with complaint of nausea, vomiting, fever, shortness of breath, wheezing Patient found to be influenza A positive at admission CXR showed Patchy bilateral airspace opacities. CTA showed no evidence for a central pulmonary embolus. Bilateral airspace opacities most pronounced within the lower lobes which likely represents a pneumonia. Suspect superimposed pulmonary edema. Continue IV Unasyn and doxycycline -> switched to cefepime and doxy Speech consulted - recommended minced and moist diet with thin liquid. Speech will continue to assess him Continue aspiration precaution Continue flutter valve, incentive spirometry, hypertonic saline and chest PT Continue neb treatment 04/15/22 Respiratory distress possible related to episode of aspiration vs pulmonary edema CXR showed progression of extensive bilateral airspace opacities with interstitial thickening. The findings favor pneumonia or aspiration pneumonitis. Lasix 40mg IV x1 ( Nephrology was notified ) Was placed on high flow oxygen Continue neb treatment, hypertonic saline, chest PT as tolerated Changed abx to cefepime and continue doxycycline Speech on board Pulmonary consulted, appreciate their input -component of diastolic heart failure, recommend to continue diuresis. Continue antibiotics for 10 days. Flutter valve recommended however due to patient's intellectual disability, he is uncooperative Continue monitor closely 04/17 -04/18 - patient on 6 L of suppl. oxygen, via nasal cannula. Diuresing well. Lung exam much improved. (3) Elevated troponin: Plan: Elevated troponin I level Mostly demand ischemia due to acute respiratory failure Troponin peaked 1157, now down trending 896 cardiology on board Pt was started on IV heparin drip that was discontinued after discussing case with cardiology ECHO showed Large sized apical, septal, anteroseptal, inferior wall motion abnormality with hypokinesis to akinesis of the segment. Ejection fraction 50 to 55% Continue aspirin and carvedilol Transaminitis Elevated Liver enzymes with AST 167 and ALT 123, continue trending down CT abd/pelvis showed no bowel wall thickening or obstruction. Continue monitor liver enzymes Acute kidney injury Mostly due to acute illness in the setting of diuretic creatinine increased to 3.4 Renal U/S showed no no hydronephrosis. creatinine trending down to 1.4 (04/17- 04/18) Nephrology consulted - continue with 20 IV lasix and increase to TID Continue monitor closely for volume overload Fever last fever on (04/16 evening) Mostly due to Influenza A or aspiration pna No leukocytosis Blood cx - Negative Continue abx with Cefepime and doxycycline Continue monitor Hyponatremia Na 132 on admission Na 136 today Continue monitor BMP Hypothyroidism Continue Levothyroxine DVT prophylaxis: Heparin subcu DNR/DNI Admission and Anticipated Discharge Date Admission Date: April 12, 2022 Subjective Pt seen in follow up of respiratory distress , + Influenza A Lying in bed on 6 NC Patient is comfortable, and has no complaints At the bedside with nursing staff Pt quite impulsive, and when we tried to do physical exam, he tried to hit the nurse Respiratory status improving, and creatinine improved as well. Patient is diuresing well. Nephrology following. Review of Systems Review of Systems: All systems reviewed & are unremarkable except as noted in Subjective Physical Exam Physical Exam: General- laying in bed, on 6l NC Head- atraumatic Eyes- PERRL, EOMI, ENT- oropharynx clear Neck- supple, no JVD Lungs- no wheezing, bilateral crackles, air entry much improved Heart- regular rhythm; no murmur Abdomen- normal bowel sounds, soft, nontender Extremities- no calf tenderness Neuro- awake and alert, able to answer simple questions appropriately , moves extremities (poor historian d/t intel. disability), impulsive (tried to hit the nurse) Skin- warm & dry Results & Data Results & Data ([facility]) Vital Signs (Past 12 Hours) Vital Signs Temp Pulse Pulse Resp BP Pulse Ox O2 Del Method 04/18/22 08:06 36.7 C 79 18 160/85 H 90 Nasal Cannula 04/18/22 07:07 84 18 94 Nasal Cannula 04/18/22 04:00 04/18/22 04:02 36.7 C 91 H 20 140/88 92 Nasal Cannula 04/17/22 22:15 75 04/18/22 00:14 80 28 H 92 Nasal Cannula 04/17/22 23:17 37.1 C 82 18 159/94 H 96 Nasal Cannula 04/17/22 21:40 87 172/84 H O2 Del Method O2 Flow Rate O2 Flow Rate 04/18/22 08:06 6 04/18/22 07:07 6 04/18/22 04:00 Nasal Cannula 6 04/18/22 04:02 04/17/22 22:15 04/18/22 00:14 6 04/17/22 23:17 6 04/17/22 21:40 Laboratory Results 04/18/22 04/18/22 04/17/22 Range/Units 07:26 07:13 19:56 Sodium 136 (136-145) mmol/L Potassium 4.3 (3.5-5.1) mmol/L Chloride 102 (98-107) mmol/L Carbon Dioxide 26 (21-32) mmol/L Anion Gap 8 (3-11) BUN 30 H (6-23) mg/dl Creatinine 1.47 H (0.6-1.4) mg/dl Est Cr Clr Drug Dosing 63.7 ml/min Est GFR ( Amer) 57.6 ml/min Est GFR (Non-Af Amer) 49.7 ml/min BUN/Creatinine Ratio 20.4 H (10-20) Glucose 92 (70-99(Fasting)) mg/dl POC Glucose 97 86 (70-99) mg/dl Calcium 8.8 (8.5-10.1) mg/dl Phosphorus 3.3 (2.5-4.9) mg/dl Magnesium 2.0 (1.7-2.4) mg/dl Total Bilirubin 0.5 (0.2-1.0) mg/dl AST 60 H (13-39) U/L ALT 38 (7-52) U/L Alkaline Phosphatase 44 (34-104) U/L Total Protein 8.1 (6.0-8.3) gm/dl Albumin 3.5 (3.4-5.0) gm/dl Globulin 4.6 H (2.5-4.0) gm/dl Albumin/Globulin Ratio 0.8 L (0.9-2) 04/17/22 04/17/22 Range/Units 16:24 11:25 Sodium (136-145) mmol/L Potassium (3.5-5.1) mmol/L Chloride (98-107) mmol/L Carbon Dioxide (21-32) mmol/L Anion Gap (3-11) BUN (6-23) mg/dl Creatinine (0.6-1.4) mg/dl Est Cr Clr Drug Dosing ml/min Est GFR ( Amer) ml/min Est GFR (Non-Af Amer) ml/min BUN/Creatinine Ratio (10-20) Glucose (70-99(Fasting)) mg/dl POC Glucose 83 92 (70-99) mg/dl Calcium (8.5-10.1) mg/dl Phosphorus (2.5-4.9) mg/dl Magnesium (1.7-2.4) mg/dl Total Bilirubin (0.2-1.0) mg/dl AST (13-39) U/L ALT (7-52) U/L Alkaline Phosphatase (34-104) U/L Total Protein (6.0-8.3) gm/dl Albumin (3.4-5.0) gm/dl Globulin (2.5-4.0) gm/dl Albumin/Globulin Ratio (0.9-2) Medications Administered Current Inpatient Medications Acetaminophen (Acetaminophen 325 Mg Tab) 650 mg PO Q4H PRN PRN Reason: Pain or Fever Stop: 05/12/22 02:48 Last Admin: 04/16/22 21:09 Dose: 650 mg Al Hydrox/Mg Hydrox/Simethicone (Aluminum/Magnesium Susp 30 Ml Udc) 15 ml PO Q4H PRN PRN Reason: Dyspepsia Stop: 05/12/22 02:48 Albuterol (Albut/Ipratrop 3mg/0.5mg Neb 3 Ml Vial) 3 ml NEB Q6R SUPRIYA; Protocol Stop: 05/16/22 18:59 Last Admin: 04/18/22 07:05 Dose: 3 ml Albuterol (Albuterol 0.083% Nebu Soln 3 Ml Vial) 2.5 mg NEB Q4R PRN; Protocol PRN Reason: wheeze, dyspnea, not controlle Stop: 05/16/22 12:51 Last Admin: 04/16/22 17:30 Dose: 2.5 mg Amlodipine Besylate (Amlodipine Besylate 5 Mg Tab) [facility] [place]: 05/12/22 08:59 Last Admin: 04/14/22 07:49 Dose: 2.5 mg Aripiprazole (Aripiprazole 15 Mg Tab) 15 mg PO QAM [facility] Stop: 05/12/22 08:59 Last Admin: 04/18/22 07:43 Dose: 15 mg Aspirin (Aspirin 81 Mg Chew) [facility] Stop: 05/12/22 08:59 Last Admin: 04/18/22 08:01 Dose: 81 mg Bupropion HCl (Bupropion Xl 300 Mg Tabcr) 300 mg PO QAM [facility] Stop: 05/12/22 08:59 Last Admin: 04/18/22 07:43 Dose: 300 mg Buspirone HCl (Buspirone 15 Mg Tab) 15 mg PO BID [facility] Stop: 05/12/22 08:59 Last Admin: 04/18/22 07:43 Dose: 15 mg Carvedilol (Carvedilol 6.25 Mg Tab) 6.25 mg PO BID [facility] Stop: 05/12/22 08:59 Last Admin: 04/18/22 07:42 Dose: 6.25 mg Clonazepam (Clonazepam 0.25 Mg Tab) 0.25 mg PO BID@ [facility] Stop: 05/12/22 07:59 Last Admin: 04/18/22 07:41 Dose: 0.25 mg Clonidine HCl (Clonidine Hcl 0.1 Mg Tab) 0.2 mg PO BID@ [facility] Stop: 05/12/22 07:59 Last Admin: 04/14/22 07:52 Dose: 0.2 mg Dextrose (Dextrose 50% 50 Ml Syringe) 25 - 50 ml IV UD PRN; Protocol PRN Reason: Hypoglycemia Protocol Stop: 05/12/22 03:12 Divalproex Sodium (Divalproex Extended Release 500 Mg Tab) 1,500 mg PO HS [facility] Stop: 05/12/22 20:59 Last Admin: 04/17/22 20:26 Dose: 1,500 mg Doxepin HCl (Doxepin Hcl 10 Mg Capsule) 10 mg PO HS [facility] Stop: 05/12/22 20:59 Last Admin: 04/17/22 20:24 Dose: 10 mg Furosemide (Furosemide Inj 20 Mg/2 Ml Vial) 20 mg IV TID@0600,1200,1800 [facility] Stop: 05/17/22 12:09 Last Admin: 04/18/22 05:03 Dose: 20 mg Glucagon (Glucagon For Inj 1 Mg Vial) 1 mg SQ UD PRN; Protocol PRN Reason: Hypoglycemia Protocol Stop: 05/12/22 03:12 Glucose (Glucose 40% Gel 15 Gm Tube) 15 - 30 gm PO UD PRN; Protocol PRN Reason: Hypoglycemia Protocol Stop: 05/12/22 03:12 Glucose (Glucose 10 Tab/Tube) 4 - 8 tab PO UD PRN; Protocol PRN Reason: Hypoglycemia Treatment Stop: 05/12/22 03:12 Guaifenesin (Guaifenesin 200 Mg Tab) 200 mg PO Q6H [facility] Stop: 05/13/22 16:59 Last Admin: 04/18/22 05:03 Dose: 200 mg Heparin Sodium (Porcine) (Heparin Sod 5,000 Unit/0.5 Ml Vial) 5,000 units SQ Q12 SUPRIYA Stop: 05/13/22 20:59 Last Admin: 04/18/22 07:45 Dose: 5,000 units Doxycycline Hyclate 100 mg/ (Dextrose) 110 mls @ 50 mls/hr IV Q12H [facility] Stop: 04/19/22 21:59 Last Infusion: 04/18/22 00:56 Dose: Infused Cefepime HCl 2,000 mg/ Syringe 20 mls @ 5 mls/min IV Q8H [facility]; Protocol Stop: 04/24/22 16:59 Last Admin: 04/18/22 08:04 Dose: 5 mls/min Insulin Aspart (Insulin Aspart Per Unit) 0 units SC ACHS [facility] Stop: 05/12/22 07:29 Last Admin: 04/18/22 08:04 Dose: Not Given Insulin Glargine (Lantus Per Unit Charge) 9 units SQ BID [facility] Stop: 05/12/22 08:59 Last Admin: 04/18/22 08:00 Dose: 9 units Levothyroxine Sodium (Levothyroxine Sodium 75 Mcg Tablet) 75 mcg PO DAILYBB [facility] Stop: 05/12/22 06:29 Last Admin: 04/18/22 05:03 Dose: 75 mcg Lisinopril (Lisinopril 10 Mg Tab) 10 mg PO DAILY [facility] Stop: 05/12/22 08:59 Last Admin: 04/13/22 08:36 Dose: 10 mg Magnesium Hydroxide (Magnesium Hydroxide Susp 30 Ml Udc) 30 ml PO Q12H PRN PRN Reason: Constipation Stop: 05/12/22 02:48 Miscellaneous (Carbohydrates For Hypoglycemia ) 15 - 30 gm PO UD PRN PRN Reason: Hypoglycemia Protocol Stop: 05/12/22 03:12 Pantoprazole Sodium (Pantoprazole 40 Mg Tab) 40 mg PO DAILY@0700 [facility] Stop: 05/12/22 06:59 Last Admin: 04/18/22 05:47 Dose: 40 mg Polyethylene Glycol (Polyethylene (Miralax) 17 Gm Pack) 17 gm PO DAILY PRN PRN Reason: Constipation Stop: 05/12/22 02:48 Potassium Chloride (Potassium Chloride Crtab 20 Meq Tabcr) 20 meq PO BID [facility] Stop: 05/17/22 12:59 Last Admin: 04/18/22 07:44 Dose: 20 meq Quetiapine Fumarate (Quetiapine Fumarate 25 Mg Tablet) 50 mg PO TID@0800,1400,2000 [facility] Stop: 05/12/22 07:59 Last Admin: 04/18/22 07:42 Dose: 50 mg Risperidone (Risperidone 0.5 Mg Tablet) 0.25 mg PO DAILY [facility] Stop: 05/12/22 08:59 Last Admin: 04/18/22 07:43 Dose: 0.25 mg Sennosides (Senna 8.6 Mg Tab) 8.6 mg PO BID [facility] Stop: 05/12/22 08:59 Last Admin: 04/18/22 07:43 Dose: 8.6 mg Sodium Chloride (Sodium Chlor 7% 4 Ml Neb) 4 ml NEB BIDR [facility] Stop: 05/14/22 18:59 Last Admin: 04/18/22 07:05 Dose: 4 ml Venlafaxine HCl (Venlafaxine Hcl Xr 37.5 Mg Capxr) 37.5 mg PO QAM [facility] Stop: 05/12/22 08:59 Last Admin: 04/18/22 07:47 Dose: 37.5 mg Venlafaxine HCl (Venlafaxine Hcl Xr 75 Mg Capxr) 75 mg PO QAM [facility] Stop: 05/12/22 08:59 Last Admin: 04/18/22 07:43 Dose: 75 mg
[2022-04-18] MEDS: DOXYCYCLINE HYCLATE 100 MG in DEXTROSE 5% 100 ML IV SCH ×2 (09:58→21:24)
--- NOTE | 2022-04-18 15:24 | Nephrology Progress Note ---
Date of Service April 18, 2022 Assessment & Plan (1) Acute respiratory failure with hypoxia: Plan: improving after worsening yesterday AM diuresing well; pulm recommends 10 days of abtx and pulm toilet/nebs -cont diuretics current frequency/ dose; 3.6L neg past 48hr -daily bmp -no FR indicated at this time -BP meds as below (2) Acute renal insufficiency: Plan: improving/resolved HESHAM secondary to acute tubular necrosis in the setting of hypoxia/respiratory failure with influenza A and aspiration pneumonia, labile blood pressure ( though no sustained periods of dramatic hypotension), and IV contrast 04/12. So the combination of hypoxia, relative hypotension, and contrast exposure is the cause of his ischemic acute tubular necrosis. Creatinine went quite fast from 1.3 (his baseline) ->3.41 within a span of 48 hours w/ peak on 04/14; today near baseline at 1.5. Renal u/s reassuring; no UA on file d/t challenges of collection and none currently indicated -continue to hold amlodipine and clonidine and lisinopril. Continue carvedilol. >avoid resuming clonidine if possible > it's hard to titrate appropriately >> >>improving 02 needs noted > cont standing lasix dose 20 mg IV tid (0600, noon, 1800, starting midday 04/17) >cont increased K to 20 mEq bid -stirct I/O -Avoid nephrotoxic agents as well as NSAIDs and contrast agent; cont to hold magnesium hydroxide, metformin. -daily bmp Admission and Anticipated Discharge Date Admission Date: April 12, 2022 Subjective 02 needs are down; pt alone in room, frustrated, denies pain, N; states his abd pain resolved and he wants to go home Review of Systems Review of Systems: All systems reviewed & are unremarkable except as noted in Subjective and Unobtainable due to cognitive status Physical Exam Constitutional: well developed, well nourished and + obese; no acute distress Eyes: EOM intact bilaterally ENMT: Ears: no external ear abnormality Nose: no external nose abnormality Mouth: + dry oral mucous membranes Neck: no nuchal rigidity Respiratory: normal respiratory effort and able to speak in complete sentences; no respiratory distress and no labored breathing Auscultation: + diminished lung sounds and + rhonchi (does not cooperate well w/ exam) Cardiovascular: Rate/Rhythm: regular rate and regular rhythm Extremities: no edema Gastrointestinal (Abdomen): Inspection/Auscultation: normal bowel sounds Percussion/Palpation: abdomen soft; abdomen nontender Musculoskeletal: Extremities: strength 5/5 throughout Skin: no rashes, warm and dry Psychiatric: Orientation: oriented to person, oriented to place and jillian ative Results & Data ([facility] [place]) Vital Signs (Past 12 Hours) Vital Signs Temp Pulse Pulse Resp BP Pulse Ox O2 Del Method 04/18/22 12:47 83 18 93 Nasal Cannula 04/18/22 11:36 36.4 C L 83 18 143/84 H 94 Nasal Cannula 04/18/22 08:00 81 04/18/22 08:00 Nasal Cannula 04/18/22 08:06 36.7 C 79 18 160/85 H 90 Nasal Cannula 04/18/22 07:07 84 18 94 Nasal Cannula 04/18/22 04:00 04/18/22 04:02 36.7 C 91 H 20 140/88 92 Nasal Cannula O2 Del Method O2 Flow Rate O2 Flow Rate 04/18/22 12:47 6 04/18/22 11:36 6 04/18/22 08:00 04/18/22 08:00 6 04/18/22 08:06 6 04/18/22 07:07 6 04/18/22 04:00 Nasal Cannula 6 04/18/22 04:02 Laboratory Results 04/17/22 05:34 04/18/22 07:13
[2022-04-18] MEDS: DIVALPROEX EXTENDED RELEASE 500 MG TAB PO SCH (21:02)
[2022-04-18] MEDS: DOXEPIN HCL 10 MG CAPSULE PO SCH (21:05)
[2022-04-19] MEDS: ALBUT/IPRATROP 3MG/0.5MG NEB 3 ML VIAL NEB SCH ×4 (01:24→19:46)
[2022-04-19] MEDS: PANTOprazole 40 MG TAB PO SCH (05:41)
[2022-04-19] MEDS: LEVOTHYROXINE SODIUM 75 MCG TABLET PO SCH (05:41)
[2022-04-19] MEDS: guaiFENesin 200 MG TAB PO SCH ×4 (05:41→23:40)
[2022-04-19] MEDS: FUROSEMIDE INJ 20 MG/2 ML VIAL IV SCH ×3 (05:41→17:08)
[2022-04-19] MEDS: SODIUM CHLOR 7% 4 ML NEB NEB SCH ×2 (06:56→19:46)
[2022-04-19] MEDS: risperiDONE 0.5 MG TABLET PO SCH (07:59)
[2022-04-19] MEDS: POTASSIUM CHLORIDE CRTAB 20 MEQ TABCR PO SCH (07:59)
[2022-04-19] MEDS: VENLAFAXINE HCL XR 75 MG CAPXR PO SCH (08:00)
[2022-04-19] MEDS: HEPARIN SOD 5,000 UNIT/0.5 ML VIAL SQ SCH ×2 (08:00→20:33)
[2022-04-19] MEDS: ARIPiprazole 15 MG TAB PO SCH (08:00)
[2022-04-19] MEDS: buPROPion XL 300 MG TABCR PO SCH (08:00)
[2022-04-19] MEDS: busPIRone 15 MG TAB PO SCH ×2 (08:00→20:32)
[2022-04-19] MEDS: SENNA 8.6 MG TAB PO SCH ×2 (08:00→20:31)
[2022-04-19] MEDS: carvediloL 6.25 MG TAB PO SCH ×2 (08:00→20:32)
[2022-04-19] MEDS: VENLAFAXINE HCL XR 37.5 MG CAPXR PO SCH (08:00)
[2022-04-19] MEDS: QUEtiapine FUMARATE 25 MG TABLET PO SCH ×3 (08:00→20:31)
[2022-04-19 08:01] LABS: Albumin Globulin Ratio 0.8 (0.9-2); Albumin Level 3.6 gm/dl (3.4-5.0); BUN Creatinine Ratio 21.4 (10-20); Bilirubin,Total 0.5 mg/dl (0.2-1.0); Creatinine Clr Calc Pharmacy 55.7 ml/min; Est GFR (Non-African American) 42.3 ml/min; Globulin 4.8 gm/dl (2.5-4.0); Magnesium 2.3 mg/dl (1.7-2.4); Phosphorus 3.6 mg/dl (2.5-4.9); Potassium 4.6 mmol/L (3.5-5.1); Total Protein 8.4 gm/dl (6.0-8.3)
[2022-04-19] MEDS: INSULIN ASPART PER UNIT SC SCH ×4 (08:01→20:42)
[2022-04-19] MEDS: ASPIRIN 81 MG CHEW PO SCH (08:09)
[2022-04-19] MEDS: clonazePAM 0.25 MG TAB PO SCH ×2 (08:09→20:31)
[2022-04-19] MEDS: LANTUS PER UNIT CHARGE SQ SCH ×2 (08:09→20:43)
[2022-04-19] MEDS: CEFEPIME 2,000 MG in SYRINGE 0 ML IV SCH ×3 (09:24→23:44)
[2022-04-19] MEDS: DOXYCYCLINE HYCLATE 100 MG in DEXTROSE 5% 100 ML IV SCH (09:24)
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
--- NOTE | 2022-04-19 10:21 | Nephrology Progress Note ---
Date of Service April 19, 2022 Assessment & Plan (1) Acute respiratory failure with hypoxia: Plan: stabilized/plateau'd at 5L diuresing well; pulm recommends 10 days of abtx and pulm toilet/nebs -cont diuretics current frequency/ dose; 4.8L neg past 72hr, though overall still + on the admission about 1L -daily bmp -no FR indicated at this time -BP meds as below (2) Acute renal insufficiency: Plan: slightly worse stage 1 HESHAM secondary to acute tubular necrosis in the setting of hypoxia/respiratory failure with influenza A and aspiration pneumonia, labile blood pressure ( though no sustained periods of dramatic hypotension), and IV contrast 04/12; resolved but now w/ obligate diuresis to manage respiratory failure. So the combination of hypoxia, relative hypotension, and contrast exposure is the cause of his ischemic acute tubular necrosis. Creatinine went quite fast from 1.3 (his baseline) ->3.41 within a span of 48 hours w/ peak on 04/14; obdulio 1.4 on 04/17. Renal u/s reassuring; no UA on file d/t challenges of collection and none currently indicated -continue to hold clonidine and lisinopril. >Continue carvedilol. >avoid resuming clonidine if possible > it's hard to titrate appropriately >>>>resumed amlodipine at higher dose of 5 mg daily starting today >>>>>cont standing lasix dose 20 mg IV tid (0600, noon, 1800, starting midday 04/17) >lowered K to 20 mEq daily -stirct I/O -Avoid nephrotoxic agents as well as NSAIDs and contrast agent; cont to hold magnesium hydroxide, metformin. -daily bmp Admission and Anticipated Discharge Date Admission Date: April 12, 2022 Subjective no interval events. seen on PM rounds; stable 02 needs; no pain or sob. Review of Systems Review of Systems: Unobtainable due to cognitive status (limited by cog status) Physical Exam Constitutional: well developed, well nourished and + obese; no acute distress Eyes: EOM intact bilaterally ENMT: Ears: no external ear abnormality Nose: no external nose abnormality Mouth: + dry oral mucous membranes Neck: no nuchal rigidity Respiratory: normal respiratory effort and able to speak in complete sentences; no respiratory distress, no labored breathing and no cough Auscultation: + diminished lung sounds Cardiovascular: Rate/Rhythm: regular rate and regular rhythm Extremities: no edema Gastrointestinal (Abdomen): Inspection/Auscultation: normal bowel sounds Percussion/Palpation: abdomen soft; abdomen nontender Musculoskeletal: Extremities: strength 5/5 throughout Skin: no rashes, warm and dry Psychiatric: Orientation: oriented to person, oriented to place and cooperative Results & Data ([facility]) Vital Signs (Past 12 Hours) Vital Signs Temp Pulse Pulse Resp BP Pulse Ox O2 Del Method 04/19/22 08:05 36.7 C 87 18 176/91 H 92 Nasal Cannula 04/19/22 06:56 87 18 90 Nasal Cannula 04/19/22 03:51 04/19/22 03:11 36.6 C 79 18 146/86 H 97 Nasal Cannula 04/19/22 01:26 80 24 91 Nasal Cannula 04/19/22 01:16 36.7 C 80 20 162/93 H 94 Nasal Cannula 04/18/22 23:53 84 O2 Del Method O2 Flow Rate O2 Flow Rate 04/19/22 08:05 5 04/19/22 06:56 5 04/19/22 03:51 Nasal Cannula 5 04/19/22 03:11 04/19/22 01:26 5 04/19/22 01:16 04/18/22 23:53 Laboratory Results 04/17/22 05:34 04/19/22 07:05
[2022-04-19] MEDS: DOXEPIN HCL 10 MG CAPSULE PO SCH (20:31)
[2022-04-19] MEDS: DIVALPROEX EXTENDED RELEASE 500 MG TAB PO SCH (20:32)
[2022-04-20] MEDS: ALBUT/IPRATROP 3MG/0.5MG NEB 3 ML VIAL NEB SCH ×4 (01:49→19:36)
[2022-04-20] MEDS: LEVOTHYROXINE SODIUM 75 MCG TABLET PO SCH (05:44)
[2022-04-20] MEDS: guaiFENesin 200 MG TAB PO SCH ×4 (05:44→20:35)
[2022-04-20] MEDS: FUROSEMIDE INJ 20 MG/2 ML VIAL IV SCH ×3 (05:44→18:11)
[2022-04-20] MEDS: PANTOprazole 40 MG TAB PO SCH (05:44)
[2022-04-20] MEDS: ACETAMINOPHEN 325 MG TAB PO PRN ×2 (06:25→20:49)
[2022-04-20] MEDS: SODIUM CHLOR 7% 4 ML NEB NEB SCH ×2 (07:00→19:36)
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
[2022-04-20 07:57] LABS: BUN Creatinine Ratio 21.4 (10-20); Calcium 9.3 mg/dl (8.5-10.1); Creatinine Clr Calc Pharmacy 51.4 ml/min; Est GFR (African American) 44.5 ml/min; Est GFR (Non-African American) 38.4 ml/min; Magnesium 2.2 mg/dl (1.7-2.4); Phosphorus 4.1 mg/dl (2.5-4.9); Potassium 4.3 mmol/L (3.5-5.1)
[2022-04-20] MEDS: CEFEPIME 2,000 MG in SYRINGE 0 ML IV SCH ×2 (08:33→20:34)
[2022-04-20] MEDS: HEPARIN SOD 5,000 UNIT/0.5 ML VIAL SQ SCH ×2 (08:33→20:34)
[2022-04-20] MEDS: carvediloL 6.25 MG TAB PO SCH ×2 (08:33→20:35)
[2022-04-20] MEDS: QUEtiapine FUMARATE 25 MG TABLET PO SCH ×3 (08:33→20:35)
[2022-04-20] MEDS: busPIRone 15 MG TAB PO SCH ×2 (08:34→20:35)
[2022-04-20] MEDS: amLODIPine BESYLATE 5 MG TAB PO SCH (08:35)
[2022-04-20] MEDS: ARIPiprazole 15 MG TAB PO SCH (08:35)
[2022-04-20] MEDS: buPROPion XL 300 MG TABCR PO SCH (08:35)
[2022-04-20] MEDS: VENLAFAXINE HCL XR 37.5 MG CAPXR PO SCH (08:36)
[2022-04-20] MEDS: POTASSIUM CHLORIDE CRTAB 20 MEQ TABCR PO SCH (08:36)
[2022-04-20] MEDS: risperiDONE 0.5 MG TABLET PO SCH (08:37)
[2022-04-20] MEDS: SENNA 8.6 MG TAB PO SCH ×2 (08:38→20:35)
[2022-04-20] MEDS: INSULIN ASPART PER UNIT SC SCH ×4 (08:43→20:48)
[2022-04-20] MEDS: LANTUS PER UNIT CHARGE SQ SCH ×2 (08:43→20:47)
[2022-04-20] MEDS: VENLAFAXINE HCL XR 75 MG CAPXR PO SCH (08:44)
--- NOTE | 2022-04-20 08:46 | Nephrology Progress Note ---
Date of Service April 20, 2022 Assessment & Plan (1) Acute respiratory failure with hypoxia: Plan: improving / needs from 5L > 3L past 24 hrs diuresing well; pulm recommends 10 days of abtx and pulm toilet/nebs -cont diuretics current frequency/ dose; 6L neg past since 1/5 AM, and overall net neg 1/2 L on admission -daily bmp -no FR indicated at this time -BP meds as below (2) Acute renal insufficiency: Plan: slightly worse stage 1 HESHAM secondary to acute tubular necrosis in the setting of hypoxia/respiratory failure with influenza A and aspiration pneumonia, labile blood pressure ( though no sustained periods of dramatic hypotension), and IV contrast 04/12; resolved but now w/ obligate diuresis to manage respiratory failure. So the combination of hypoxia, relative hypotension, and contrast exposure is the cause of his ischemic acute tubular necrosis. Creatinine went quite fast from 1.3 (his baseline) ->3.41 within a span of 48 hours w/ peak on 04/14; obdulio 1.4 on 04/17. Renal u/s reassuring; no UA on file d/t challenges of collection and none currently indicated -continue to hold clonidine and lisinopril. >Continue carvedilol. >avoid resuming clonidine if possible > it's hard to titrate appropriately >>>>continue amlodipine at current higher than OP dose of 5 mg daily starting today >>>>>cont standing lasix dose 20 mg IV tid (0600, noon, 1800, starting midday 04/17) >cont lowered K to 20 mEq daily -strict I/O -Avoid nephrotoxic agents as well as NSAIDs and contrast agent; cont to hold magnesium hydroxide, metformin. -daily bmp Admission and Anticipated Discharge Date Admission Date: April 12, 2022 Subjective agitated easily and frustrated; wants to go home; has been out w/ w/c Review of Systems Review of Systems: Unobtainable due to cognitive status Physical Exam Constitutional: well developed, well nourished and + obese; no acute distress Eyes: EOM intact bilaterally ENMT: Ears: no external ear abnormality Nose: no external nose abnormality Mouth: + dry oral mucous membranes Neck: no nuchal rigidity Respiratory: normal respiratory effort; no respiratory distress, no labored breathing and no cough Auscultation: + diminished lung sounds Cardiovascular: Rate/Rhythm: regular rate and regular rhythm Extremities: no edema Gastrointestinal (Abdomen): Inspection/Auscultation: normal bowel sounds P ercussion/Palpation: abdomen soft; abdomen nontender Musculoskeletal: Extremities: strength 5/5 throughout Skin: no rashes, warm and dry Psychiatric: Orientation: oriented to person, oriented to place and cooperative Results & Data ([facility]) Vital Signs (Past 12 Hours) Vital Signs Temp Pulse Pulse Resp BP Pulse Ox O2 Del Method 04/20/22 07:53 36.4 C L 87 20 163/83 H 94 Nasal Cannula 04/20/22 07:00 81 20 93 Nasal Cannula 04/20/22 05:48 81 163/73 H 95 Nasal Cannula 04/20/22 01:36 99 H 04/19/22 23:42 36.7 C 83 18 142/89 H 96 Nasal Cannula O2 Flow Rate 04/20/22 07:53 3 04/20/22 07:00 3 04/20/22 05:48 3 04/20/22 01:36 04/19/22 23:42 Laboratory Results 04/17/22 05:34 04/20/22 07:07
[2022-04-20] MEDS: ASPIRIN 81 MG CHEW PO SCH (08:50)
[2022-04-20] MEDS: clonazePAM 0.25 MG TAB PO SCH ×2 (08:50→20:34)
[2022-04-20] MEDS ORDERED: ONDANSETRON INJ 2 MG/ML 2 ML VIAL IV PRN (10:36)
[2022-04-20] MEDS ORDERED: ONDANSETRON INJ 2 MG/ML 2 ML VIAL ONE (10:39)
[2022-04-20] MEDS: DIVALPROEX EXTENDED RELEASE 500 MG TAB PO SCH (20:35)
[2022-04-20] MEDS: DOXEPIN HCL 10 MG CAPSULE PO SCH (20:35)
[2022-04-21] MEDS: ALBUT/IPRATROP 3MG/0.5MG NEB 3 ML VIAL NEB SCH ×2 (01:56→07:11)
[2022-04-21] MEDS: PANTOprazole 40 MG TAB PO SCH (05:53)
[2022-04-21] MEDS: FUROSEMIDE INJ 20 MG/2 ML VIAL IV SCH (05:53)
[2022-04-21] MEDS: LEVOTHYROXINE SODIUM 75 MCG TABLET PO SCH (05:54)
[2022-04-21] MEDS: guaiFENesin 200 MG TAB PO SCH ×4 (05:54→20:42)
[2022-04-21] MEDS: SODIUM CHLOR 7% 4 ML NEB NEB SCH (07:11)
[2022-04-21 07:43] LABS: Hematocrit (blood only) 36.9 % (40.1-51.0); Hemoglobin 12.3 g/dl (14.0-18.0); Mean Corpuscular Hemoglobin 32.1 pg (25.0-34.0); Mean Corpuscular Hgb Conc 33.3 g/dL (32.0-36.0); Mean Corpuscular Volume 96.3 fL (80.0-100.0); Mean Platelet Volume 10.2 fL (9.4-12.4); Nucleated RBC # (auto) 0.02 K/uL (0-0); Nucleated RBC % (auto) 0.2 %; Platelet Count 306 K/uL (130-400); RDW Coefficient of Variation 14.3 % (11.5-14.5); Red Blood Count 3.83 M/uL (4.63-6.08); White Blood Count 11.52 K/ul (4.8-10.8)
[2022-04-21] MEDS: ASPIRIN 81 MG CHEW PO SCH (07:53)
[2022-04-21] MEDS: clonazePAM 0.25 MG TAB PO SCH ×2 (07:53→20:46)
[2022-04-21] MEDS: QUEtiapine FUMARATE 25 MG TABLET PO SCH ×3 (07:54→20:42)
[2022-04-21] MEDS: SENNA 8.6 MG TAB PO SCH ×2 (07:54→20:42)
[2022-04-21] MEDS: risperiDONE 0.5 MG TABLET PO SCH (07:54)
[2022-04-21] MEDS: VENLAFAXINE HCL XR 75 MG CAPXR PO SCH (07:55)
[2022-04-21] MEDS: busPIRone 15 MG TAB PO SCH ×2 (07:55→20:42)
[2022-04-21] MEDS: amLODIPine BESYLATE 5 MG TAB PO SCH (07:57)
[2022-04-21] MEDS: POTASSIUM CHLORIDE CRTAB 20 MEQ TABCR PO SCH (07:57)
[2022-04-21] MEDS: buPROPion XL 300 MG TABCR PO SCH (07:58)
[2022-04-21] MEDS: ARIPiprazole 15 MG TAB PO SCH (07:58)
[2022-04-21] MEDS: CEFEPIME 2,000 MG in SYRINGE 0 ML IV SCH ×2 (07:59→20:37)
[2022-04-21] MEDS: carvediloL 6.25 MG TAB PO SCH (07:59)
[2022-04-21] MEDS: LANTUS PER UNIT CHARGE SQ SCH ×2 (08:00→20:43)
[2022-04-21] MEDS: HEPARIN SOD 5,000 UNIT/0.5 ML VIAL SQ SCH ×2 (08:00→20:43)
[2022-04-21] MEDS: VENLAFAXINE HCL XR 37.5 MG CAPXR PO SCH (08:00)
[2022-04-21] MEDS: INSULIN ASPART PER UNIT SC SCH ×4 (08:02→20:37)
[2022-04-21 08:10] LABS: BUN Creatinine Ratio 22.7 (10-20); Calcium 9.6 mg/dl (8.5-10.1); Est GFR (African American) 38.1 ml/min; Est GFR (Non-African American) 32.9 ml/min; Magnesium 2.3 mg/dl (1.7-2.4); Phosphorus 4.2 mg/dl (2.5-4.9); Potassium 4.9 mmol/L (3.5-5.1)
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
[2022-04-21] MEDS: DOXYCYCLINE HYCLATE 100 MG CAP PO SCH ×2 (10:08→20:43)
--- NOTE | 2022-04-21 11:00 | Nephrology Progress Note ---
Date of Service April 21, 2022 Assessment & Plan Admission and Anticipated Discharge Date Admission Date: April 12, 2022 Subjective Assessment & Plan (1) Acute respiratory failure with hypoxia: Plan: Now on Room Air. So much better. I am not convinced that there is sig pulm edema here. do CXR today. (2) Acute renal insufficiency: Plan: slightly worse stage 1 HESHAM secondary to acute tubular necrosis in the setting of hypoxia/respiratory failure with influenza A and aspiration pneumonia, labile blood pressure ( though no sustained periods of dramatic hypotension), and IV contrast 04/12; resolved but now rising again with Diuretics. So the combination of hypoxia, relative hypotension, and contrast exposure is the cause of his ischemic acute tubular necrosis. Creatinine went quite fast from 1.3 (his baseline) ->3.41 within a span of 48 hours w/ peak on 04/14; obdulio 1.4 on 04/17. Renal u/s reassuring; no UA on file d/t challenges of collection and none currently indicated continue to hold clonidine and lisinopril for now. Raise carvedilol to 12.5 bid. Avoid nephrotoxic agents as well as NSAIDs and contrast agent; cont to hold magnesium hydroxide, metformin. daily bmp I think we have diuresed enough. Will stop iv lasix. after CXR will decide about Po lasix for discharge if any. Subjective agitated easily and frustrated. Did not talk to me. On RA now. Review of Systems Review of Systems: Unobtainable due to cognitive status Physical Exam Constitutional: well developed, well nourished and + obese; no acute distress Eyes: EOM intact bilaterally ENMT: Ears: no external ear abnormality Nose: no external nose abnormality Mouth: + dry oral mucous membranes Neck: no nuchal rigidity Respiratory: normal respiratory effort; no respiratory distress, no labored breathing and no cough Auscultation: + diminished lung sounds Cardiovascular: Rate/Rhythm: regular rate and regular rhythm Extremities: no edema Gastrointestinal (Abdomen): Inspection/Auscultation: normal bowel sounds Percussion/Palpation: abdomen soft; abdomen nontender Musculoskeletal: Extremities: strength 5/5 throughout Skin: no rashes, warm and dry Psychiatric: Orientation: oriented to person, oriented to place and cooperative Results & Data ([facility]) Vital Signs (Past 12 Hours) Vital Signs Temp Pulse Pulse Resp BP BP Pulse Ox 04/21/22 09:00 93 04/21/22 07:33 36.4 C L 88 16 171/102 H 04/21/22 07:11 89 18 93 04/21/22 03:50 36.6 C 82 20 147/91 H 96 04/20/22 23:00 92 H 04/20/22 23:36 36.4 C L 89 20 144/83 H 92 O2 Del Method O2 Flow Rate 04/21/22 09:00 Room Air 04/21/22 07:33 04/21/22 07:11 Room Air 04/21/22 03:50 Nasal Cannula 2.0 04/20/22 23:00 04/20/22 23:36 Nasal Cannula 2.0
--- NOTE | 2022-04-21 11:23 | XRay Report ---
TWO VIEW CHEST CLINICAL HISTORY: Follow-up pneumonia. FINDINGS: AP and lateral chest radiographs are compared to study dated 04/17/2022 and correlated with c hest CT dated 04/12/2022. The heart is top normal for projection. Diffuse interstitial thickening is similar to previous. Scarring/atelectasis is noted at the lung bases. Bilateral airspace opacities win ve partially cleared as compared to 05/05. There is no pleural effusion or pneumothorax. The skeletal structures are osteopenic. There is chronic posttraumatic deformity of the left clavicle. Cholecystec jennifer clips are noted in the upper abdomen. IMPRESSION: Bilateral airspace opacities have partially cleared as compared to 04/17/2022. Continued fo llow-up to complete resolution is recommended. ACT 112: Negative or not required by law. Electronically signed by: Jayson Dimas M.D. 04/21/2022 11:22 AM
[2022-04-21] MEDS: carvediloL 12.5 MG TAB PO SCH (20:42)
[2022-04-21] MEDS: DOXEPIN HCL 10 MG CAPSULE PO SCH (20:43)
[2022-04-21] MEDS: DIVALPROEX EXTENDED RELEASE 500 MG TAB PO SCH (20:43)
[2022-04-22] MEDS: guaiFENesin 200 MG TAB PO SCH ×4 (05:58→21:52)
[2022-04-22] MEDS: LEVOTHYROXINE SODIUM 75 MCG TABLET PO SCH (06:03)
[2022-04-22] MEDS: PANTOprazole 40 MG TAB PO SCH (06:03)
[2022-04-22] MEDS: INSULIN ASPART PER UNIT SC SCH ×4 (07:55→20:41)
[2022-04-22] MEDS: clonazePAM 0.25 MG TAB PO SCH ×2 (07:56→21:58)
[2022-04-22] MEDS: QUEtiapine FUMARATE 25 MG TABLET PO SCH ×3 (07:56→21:54)
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
[2022-04-22] MEDS: ACETAMINOPHEN 325 MG TAB PO PRN ×2 (08:00→14:48)
[2022-04-22] MEDS: carvediloL 12.5 MG TAB PO SCH ×2 (08:04→21:52)
[2022-04-22] MEDS: buPROPion XL 300 MG TABCR PO SCH (08:04)
[2022-04-22] MEDS: ARIPiprazole 15 MG TAB PO SCH (08:04)
[2022-04-22] MEDS: busPIRone 15 MG TAB PO SCH ×2 (08:04→21:55)
[2022-04-22] MEDS: amLODIPine BESYLATE 5 MG TAB PO SCH (08:04)
[2022-04-22] MEDS: DOXYCYCLINE HYCLATE 100 MG CAP PO SCH ×2 (08:04→21:51)
[2022-04-22] MEDS: ASPIRIN 81 MG CHEW PO SCH (08:05)
[2022-04-22] MEDS: VENLAFAXINE HCL XR 75 MG CAPXR PO SCH (08:05)
[2022-04-22] MEDS: SENNA 8.6 MG TAB PO SCH ×2 (08:05→21:26)
[2022-04-22] MEDS: VENLAFAXINE HCL XR 37.5 MG CAPXR PO SCH (08:05)
[2022-04-22] MEDS: risperiDONE 0.5 MG TABLET PO SCH (08:05)
[2022-04-22] MEDS: POTASSIUM CHLORIDE CRTAB 20 MEQ TABCR PO SCH (08:05)
[2022-04-22] MEDS: HEPARIN SOD 5,000 UNIT/0.5 ML VIAL SQ SCH ×2 (08:05→21:49)
[2022-04-22] MEDS: LANTUS PER UNIT CHARGE SQ SCH ×2 (08:16→21:50)
[2022-04-22] MEDS: CEFEPIME 2,000 MG in SYRINGE 0 ML IV SCH (08:53)
[2022-04-22 09:54] LABS: BUN Creatinine Ratio 24.5 (10-20); Calcium 9.6 mg/dl (8.5-10.1); Creatinine Clr Calc Pharmacy 42.5 ml/min; Est GFR (African American) 36.2 ml/min; Est GFR (Non-African American) 31.2 ml/min; Potassium 4.6 mmol/L (3.5-5.1)
--- NOTE | 2022-04-22 10:38 | Nephrology Progress Note ---
Date of Service April 22, 2022 Assessment & Plan Admission and Anticipated Discharge Date Admission Date: April 12, 2022 Subjective Subjective Assessment & Plan (1) Acute respiratory failure with hypoxia: Plan: Now on Room Air. So much better. I am not convinced that there is sig pulm edema here. do CXR today. (2) Acute renal insufficiency: Plan: slightly worse stage 1 HESHAM secondary to acute tubular necrosis in the setting of hypoxia/respiratory failure with influenza A and aspiration pneumonia, labile blood pressure ( though no sustained periods of dramatic hypotension), and IV contrast 04/12; resolved but now rising again with Diuretics. So the combination of hypoxia, relative hypotension, and contrast exposure is the cause of his ischemic acute tubular necrosis. Creatinine went quite fast from 1.3 (his baseline) ->3.41 within a span of 48 hours w/ peak on 04/14; obdulio 1.4 on 04/17. But now rising creat again. Renal u/s reassuring; no UA on file d/t challenges of collection and none currently indicated Given high BP will restart clonidine but continue to hold lisinopril given still rising creat. carvedilol to 12.5 bid. Avoid nephrotoxic agents as well as NSAIDs and contrast agent; cont to hold magnesium hydroxide, metformin. daily bmp I think we have diuresed enough for now but is hard to assess. CXR still looks bad but likely from b/l Pneumonia rather than Pulm edema. No lasix today. Also do CBC tomorrow given ? rising WBC. Subjective agitated easily and frustrated. On RA now. Review of Systems Review of Systems: Unobtainable due to cognitive status Physical Exam Constitutional: well developed, well nourished and + obese; no acute distress Eyes: EOM intact bilaterally ENMT: Ears: no external ear abnormality Nose: no external nose abnormality Mouth: + dry oral mucous membranes Neck: no nuchal rigidity Respiratory: normal respiratory effort; no respiratory distress, no labored breathing and no cough Auscultation: + diminished lung sounds Cardiovascular: Rate/Rhythm: regular rate and regular rhythm Extremities: no edema Gastrointestinal (Abdomen): Inspection/Auscultation: normal bowel sounds Percussion/Palpation: abdomen soft; abdomen nontender Musculoskeletal: Extremities: strength 5/5 throughout Skin: no rashes, warm and dry Psychiatric: Orientation: oriented to person, oriented to place and cooperative Results & Data ([place]) Vital Signs (Past 12 Hours) Vital Signs Temp Pulse Pulse Resp BP Pulse Ox O2 Del Method 04/22/22 08:55 85 04/22/22 08:55 Room Air 04/22/22 07:08 36.7 C 90 16 170/91 H 91 Room Air 04/21/22 23:00 90 04/22/22 02:53 36.4 C L 89 18 149/81 H 94 Room Air 04/21/22 23:23 36.8 C 85 18 135/83 91 Room Air
--- NOTE | 2022-04-22 18:45 | XRay Report ---
SINGLE VIEW CHEST CLINICAL HISTORY: Follow-up pneumonia FINDINGS: 2 AP, portable, upright chest radiographs are compared to study dated 04/21/2022 and correlat ed with chest CT dated 04/12/2022. The examination is degraded by portable technique, large body habi tus, and apical lordotic positioning. The heart is enlarged. There is mild pulmonary vascular congest ion. Persistent bibasilar opacities are unchanged from yesterday. No large pleural effusion or pneumo thorax is seen. The skeletal structures appear osteopenic. The bony thorax is grossly intact. IMPRESSION: 1. Cardiomegaly with pulmonary vascular congestion. 2. Persistent bibasilar opacities are similar to yesterday. ACT 112: Negative or not required by law. Electronically signed by: Jayson Dimas M.D. 04/22/2022 6:44 PM
[2022-04-22] MEDS: CEFDINIR 300 MG CAP PO SCH (21:51)
[2022-04-22] MEDS: DIVALPROEX EXTENDED RELEASE 500 MG TAB PO SCH (21:52)
[2022-04-22] MEDS: DOXEPIN HCL 10 MG CAPSULE PO SCH (21:52)
[2022-04-23] MEDS: LEVOTHYROXINE SODIUM 75 MCG TABLET PO SCH (05:29)
[2022-04-23] MEDS: guaiFENesin 200 MG TAB PO SCH ×3 (05:29→16:15)
[2022-04-23] MEDS: amLODIPine BESYLATE 5 MG TAB PO SCH (07:44)
[2022-04-23] MEDS: DOXYCYCLINE HYCLATE 100 MG CAP PO SCH ×2 (07:44→20:59)
[2022-04-23] MEDS: POTASSIUM CHLORIDE CRTAB 20 MEQ TABCR PO SCH (07:44)
[2022-04-23] MEDS: carvediloL 12.5 MG TAB PO SCH ×2 (07:44→20:43)
[2022-04-23] MEDS: CEFDINIR 300 MG CAP PO SCH ×2 (07:44→20:43)
[2022-04-23] MEDS: VENLAFAXINE HCL XR 37.5 MG CAPXR PO SCH (07:45)
[2022-04-23] MEDS: buPROPion XL 300 MG TABCR PO SCH (07:45)
[2022-04-23] MEDS: risperiDONE 0.5 MG TABLET PO SCH (07:45)
[2022-04-23] MEDS: ARIPiprazole 15 MG TAB PO SCH (07:45)
[2022-04-23] MEDS: PANTOprazole 40 MG TAB PO SCH (07:45)
[2022-04-23] MEDS: VENLAFAXINE HCL XR 75 MG CAPXR PO SCH (07:46)
[2022-04-23] MEDS: HEPARIN SOD 5,000 UNIT/0.5 ML VIAL SQ SCH ×2 (07:46→20:41)
[2022-04-23] MEDS: SENNA 8.6 MG TAB PO SCH ×2 (07:46→20:35)
[2022-04-23] MEDS: QUEtiapine FUMARATE 25 MG TABLET PO SCH ×3 (07:46→20:43)
[2022-04-23] MEDS: busPIRone 15 MG TAB PO SCH ×2 (07:46→20:43)
[2022-04-23] MEDS: ASPIRIN 81 MG CHEW PO SCH (07:51)
[2022-04-23] MEDS: clonazePAM 0.25 MG TAB PO SCH ×2 (07:51→20:42)
[2022-04-23 08:21] LABS: Hematocrit (blood only) 35.7 % (40.1-51.0); Hemoglobin 11.9 g/dl (14.0-18.0); Mean Corpuscular Hemoglobin 32.4 pg (25.0-34.0); Mean Corpuscular Hgb Conc 33.3 g/dL (32.0-36.0); Mean Corpuscular Volume 97.3 fL (80.0-100.0); Mean Platelet Volume 10.1 fL (9.4-12.4); Platelet Count 273 K/uL (130-400); RDW Coefficient of Variation 14.4 % (11.5-14.5); RDW Standard Deviation 51.2 fL (36.4-46.3); Red Blood Count 3.67 M/uL (4.63-6.08); White Blood Count 7.51 K/ul (4.8-10.8)
[2022-04-23] MEDS: INSULIN ASPART PER UNIT SC SCH ×4 (08:21→20:35)
[2022-04-23] MEDS: LANTUS PER UNIT CHARGE SQ SCH ×2 (08:21→20:42)
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
[2022-04-23 08:48] LABS: BUN Creatinine Ratio 28.5 (10-20); Calcium 9.6 mg/dl (8.5-10.1); Creatinine Clr Calc Pharmacy 49.2 ml/min; Est GFR (African American) 43.3 ml/min; Est GFR (Non-African American) 37.4 ml/min; Magnesium 2.5 mg/dl (1.7-2.4); Phosphorus 3.7 mg/dl (2.5-4.9)
--- NOTE | 2022-04-23 11:14 | Nephrology Progress Note ---
Date of Service April 23, 2022 Assessment & Plan Admission and Anticipated Discharge Date Admission Date: April 12, 2022 Subjective Assessment & Plan (1) Acute respiratory failure with hypoxia: Plan: Now on Room Air. So much better. I am not convinced that there is sig pulm edema here. do CXR today. (2) Acute renal insufficiency: Plan: slightly worse stage 1 HESHAM secondary to acute tubular necrosis in the setting of hypoxia/respiratory failure with influenza A and aspiration pneumonia, labile blood pressure ( though no sustained periods of dramatic hypotension), and IV contrast 04/12; resolved but now rising again with Diuretics. So the combination of hypoxia, relative hypotension, and contrast exposure is the cause of his ischemic acute tubular necrosis. Creatinine went quite fast from 1.3 (his baseline) ->3.41 within a span of 48 hours w/ peak on 04/14; obdulio 1.4 on 04/17. But now rising creat again. Renal u/s reassuring; no UA on file d/t challenges of collection and none currently indicated BP is good again. Creat got down a bit. continue to hold lisinopril given still rising creat. also given better BP no need to use the Clonidine carvedilol to 12.5 bid. Avoid nephrotoxic agents as well as NSAIDs and contrast agent; cont to hold magnesium hydroxide, metformin. daily bmp I think we have diuresed enough for now but is hard to assess. CXR still looks bad but likely from b/l Pneumonia rather than Pulm edema. he is On Room air No lasix today but will need some baseline from tomorrow Subjective agitated easily and frustrated. On RA now. Review of Systems Review of Systems: Unobtainable due to cognitive status Physical Exam Constitutional: well developed, well nourished and + obese; no acute distress Eyes: EOM intact bilaterally ENMT: Ears: no external ear abnormality Nose: no external nose abnormality Mouth: + dry oral mucous membranes Neck: no nuchal rigidity Respiratory: normal respiratory effort; no respiratory distress, no labored breathing and no cough Auscultation: + diminished lung sounds Cardiovascular: Rate/Rhythm: regular rate and regular rhythm Extremities: no edema Gastrointestinal (Abdomen): Inspection/Auscultation: normal bowel sounds Percussion/Palpation: abdomen soft; abdomen nontender Musculoskeletal: Extremities: strength 5/5 throughout Skin: no rashes, warm and dry Psychiatric: Orientation: oriented to person, oriented to place and cooperative Results & Data ([facility]) Vital Signs (Past 12 Hours) Vital Signs Temp Pulse Pulse Resp BP Pulse Ox O2 Del Method 04/23/22 09:56 36.5 C 77 20 131/88 91 Room Air 04/23/22 08:00 67 04/23/22 08:00 Room Air 04/23/22 07:01 36.5 C 76 20 156/86 H 94 Room Air 04/23/22 04:00 04/23/22 03:04 36.6 C 72 18 139/82 91 Room Air O2 Del Method 04/23/22 09:56 04/23/22 08:00 04/23/22 08:00 04/23/22 07:01 04/23/22 04:00 Room Air 04/23/22 03:04
[2022-04-23] MEDS ORDERED: FUROSEMIDE 40 MG/4 ML VIAL IV ONE (11:59)
[2022-04-23] MEDS ORDERED: FUROSEMIDE 80 MG TAB PO ONE (12:35)
--- NOTE | 2022-04-23 17:46 | XRay Report ---
XR chest 1V portable CLINICAL HISTORY: follow up TECHNIQUE: Single frontal radiograph of the chest was obtained. Comparison: Comparison is made to chest radiograph 04/22/2022 FINDINGS: No lines and tubes are seen. Cardiomegaly is noted. The lungs are clear. No evidence of pleural effus ion or pneumothorax. IMPRESSION: No acute chest disease. Cardiomegaly is noted. Previously noted airspace opacities are not seen. ACT 112: Negative or not required by law. Electronically signed by: Can Joseph M.D. 04/23/2022 5:44 PM
[2022-04-23] MEDS: DIVALPROEX EXTENDED RELEASE 500 MG TAB PO SCH (20:42)
[2022-04-23] MEDS: DOXEPIN HCL 10 MG CAPSULE PO SCH (20:43)
[2022-04-24] MEDS: guaiFENesin 200 MG TAB PO SCH ×3 (00:31→11:38)
[2022-04-24] MEDS: LEVOTHYROXINE SODIUM 75 MCG TABLET PO SCH (06:03)
[2022-04-24 07:52] LABS: Hematocrit (blood only) 36.1 % (40.1-51.0); Hemoglobin 12.4 g/dl (14.0-18.0); Mean Corpuscular Hgb Conc 34.3 g/dL (32.0-36.0); Mean Corpuscular Volume 93.3 fL (80.0-100.0); Mean Platelet Volume 10.4 fL (9.4-12.4); Platelet Count 296 K/uL (130-400); RDW Standard Deviation 47.5 fL (36.4-46.3); Red Blood Count 3.87 M/uL (4.63-6.08)
[2022-04-24] MEDS: CEFDINIR 300 MG CAP PO SCH (08:14)
[2022-04-24] MEDS: VENLAFAXINE HCL XR 37.5 MG CAPXR PO SCH (08:15)
[2022-04-24] MEDS: POTASSIUM CHLORIDE CRTAB 20 MEQ TABCR PO SCH (08:15)
[2022-04-24] MEDS: amLODIPine BESYLATE 5 MG TAB PO SCH (08:15)
[2022-04-24] MEDS: busPIRone 15 MG TAB PO SCH (08:15)
[2022-04-24] MEDS: carvediloL 12.5 MG TAB PO SCH (08:15)
[2022-04-24] MEDS: PANTOprazole 40 MG TAB PO SCH (08:16)
[2022-04-24] MEDS: risperiDONE 0.5 MG TABLET PO SCH (08:16)
[2022-04-24] MEDS: QUEtiapine FUMARATE 25 MG TABLET PO SCH ×2 (08:16→13:31)
[2022-04-24] MEDS: ARIPiprazole 15 MG TAB PO SCH (08:16)
[2022-04-24] MEDS: DOXYCYCLINE HYCLATE 100 MG CAP PO SCH (08:17)
[2022-04-24] MEDS: buPROPion XL 300 MG TABCR PO SCH (08:17)
[2022-04-24] MEDS: VENLAFAXINE HCL XR 75 MG CAPXR PO SCH (08:17)
[2022-04-24] MEDS: SENNA 8.6 MG TAB PO SCH (08:18)
[2022-04-24] MEDS: HEPARIN SOD 5,000 UNIT/0.5 ML VIAL SQ SCH (08:19)
[2022-04-24] MEDS: ASPIRIN 81 MG CHEW PO SCH (08:19)
[2022-04-24] MEDS: clonazePAM 0.25 MG TAB PO SCH (08:26)
[2022-04-24] MEDS: LANTUS PER UNIT CHARGE SQ SCH (08:37)
[2022-04-24] MEDS: INSULIN ASPART PER UNIT SC SCH ×2 (08:38→11:37)
[2022-04-24 09:03] LABS: Creatinine Clr Calc Pharmacy 47.7 ml/min; Est GFR (African American) 41.7 ml/min; Potassium 5.2 mmol/L (3.5-5.1)
--- NOTE | 2022-04-24 09:29 | Nephrology Progress Note ---
Date of Service April 24, 2022 Assessment & Plan Admission and Anticipated Discharge Date Admission Date: April 12, 2022 Subjective Subjective Assessment & Plan (1) Acute respiratory failure with hypoxia: Plan: Now on Room Air. So much better. I am not convinced that there is sig pulm edema here. do CXR today. (2) Acute renal insufficiency: Plan: slightly worse stage 1 HESHAM secondary to acute tubular necrosis in the setting of hypoxia/respiratory failure with influenza A and aspiration pneumonia, labile blood pressure ( though no sustained periods of dramatic hypotension), and IV contrast 04/12; resolved but now rising again with Diuretics. So the combination of hypoxia, relative hypotension, and contrast exposure is the cause of his ischemic acute tubular necrosis. Creatinine went quite fast from 1.3 (his baseline) ->3.41 within a span of 48 hours w/ peak on 04/14; obdulio 1.4 on 04/17. But now rising creat again. Renal u/s reassuring; no UA on file d/t challenges of collection and none currently indicated BP is good again. Creat up a bit. continue to hold lisinopril given still rising creat. also given better BP no need to use the Clonidine carvedilol to 12.5 bid. Avoid nephrotoxic agents as well as NSAIDs and contrast agent; cont to hold magnesium hydroxide, metformin. daily bmp use lasix 40 po bid for Discharge. No clonidine and no Lisinopril for now. f/u nephrology 1-2 weeks Subjective agitated easily and frustrated. On RA now. Review of Systems Review of Systems: Unobtainable due to cognitive status Physical Exam Constitutional: well developed, well nourished and + obese; no acute distress Eyes: EOM intact bilaterally ENMT: Ears: no external ear abnormality Nose: no external nose abnormality Mouth: + dry oral mucous membranes Neck: no nuchal rigidity Respiratory: normal respiratory effort; no respiratory distress, no labored breathing and no cough Auscultation: + diminished lung sounds Cardiovascular: Rate/Rhythm: regular rate and regular rhythm Extremities: no edema Gastrointestinal (Abdomen): Inspection/Auscultation: normal bowel sounds Percussion/Palpation: abdomen soft; abdomen nontender Musculoskeletal: Extremities: strength 5/5 throughout Skin: no rashes, warm and dry Psychiatric: Orientation: oriented to person, oriented to place and cooperative Results & Data ([facility]) Vital Signs (Past 12 Hours) Vital Signs Temp Pulse Pulse Pulse Resp BP Pulse Ox 04/24/22 07:43 36.5 C 85 18 138/84 96 04/24/22 04:00 04/24/22 03:16 36.7 C 70 74 16 162/81 H 97 04/23/22 23:00 78 04/23/22 22:43 36.6 C 73 18 133/83 96 Pulse Ox O2 Del Method O2 Del Method 04/24/22 07:43 Room Air 04/24/22 04:00 93 Room Air 04/24/22 03:16 Room Air 04/23/22 23:00 04/23/22 22:43 Room Air
[2022-04-24] MEDS ORDERED: FUROSEMIDE 40 MG TAB PO SCH (09:30)
--- NOTE | 2022-04-24 10:18 | Hospitalist Progress Note ---
Date of Service April 24, 2022 Assessment & Plan (1) Acute respiratory failure with hypoxia: Plan: 1) Influenza A: (2) Acute respiratory failure with hypoxia: Plan: Clifford presented with nausea, vomiting, fever, shortness of breath, wheezing Patient found to be influenza A positive at admission CXR showedPatchy bilateral airspace opacities. CTA showed no evidence for a central pulmonary embolus. Bilateral airspace opacities most pronounced within the lower lobes which likely represents a pneumonia. Suspect superimposed pulmonary edema. Was on IV Unasyn and doxycycline ->switched to cefepime and doxy Speech consulted - recommended minced and moist diet with thin liquid. Speech will continue to assess him Continue aspiration precaution Respiratory distress possible related to episode of aspiration vs pulmonary edema CXR showed progression of extensive bilateral airspace opacities with interstitial thickening. The findings favor pneumonia or aspiration pneumonitis. Lasix 40mg IV x1 ( Nephrology was notified ) Was placed on high flow oxygen Was on neb treatment, hypertonic saline, chest PT as tolerated Changed abx to cefepime and continue doxycycline Speech on board Pulmonary consulted, appreciate their input - component of diastolic heart failure, recommend to continue diuresis. Continue antibiotics for 10 days. Flutter valve recommended however due to patient's intellectual disability, he is uncooperative Continue monitor closely Currently saturating fine on room air Nephrology recommends lasix 40mg bid and close followup with nephro in 1-2 weeks (3) Elevated troponin: Plan: Elevated troponin I level Mostly demand ischemia due to acute respiratory failure Troponin peaked 1157, now down trending 896 cardiology on board Pt was started on IV heparin drip that was discontinued after discussing case with cardiology ECHO showed Large sized apical, septal, anteroseptal, inferior wall motion abnormality with hypokinesis to akinesis of the segment. Ejection fraction 50 to 55% Continue aspirin and carvedilol Transaminitis Elevated Liver enzymes with AST 167 and ALT 123, continue trending down CT abd/pelvis showedno bowel wall thickening or obstruction. followup Acute kidney injury Mostly due to acute illness in the setting of diuretic creatinine increased to 3.4 Renal U/S showed no hydronephrosis. creatinine trending down to 1.4 (04/17- 04/18) Nephrology consulted- cWas on 20 IV lasix and increased to TID amlodipine started for BP (lisinopril, clonidine on hold and will stopped at discharge and close monitor.) Continue monitor closely for volume overload Cr 2 (04/21) Cr 1.86 (04/23) Cr 1.9 today 04/24 Nephro wanted close followup and ok for discharge Fever last fever on (04/16 evening) Mostly due to Influenza A or aspiration pna No leukocytosis Blood cx - Negative Continued abx with Cefepime and doxycycline -> switched to PO will complete the course Hyponatremia Na 132 on admission Sodium improved Continue monitor BMP Hypothyroidism Continue Levothyroxine Diabetes stopped metformin because of renal insufficency discharging on Glimiperide 1mg po daily can tritrate based on blood sugar readings HTN stopped clonidine and lisinopril added amlodipine changed coreg to 12.5mg bid changed lasix to 40mg bid. Hyperkalemia potassium 5.2 today stopped KCL supplements lasix increased to 40mg bid followup labs closely on discharge followup with Nephrology closely. DNR/DNI Plan for discharge to [facility] Today. TO continue pt/ot at discharge Close Followup with PCP and Nephrology. (2) Acute renal insufficiency: (3) Elevated troponin: (4) Chronic heart failure with reduced ejection fraction and diastolic dysfunction: (5) Influenza A: (6) Aspiration pneumonia: (7) Intellectual disability: Admission and Anticipated Discharge Date Admission Date: April 12, 2022 Subjective Resting comfortably says he did not sleep well last night had his breakfast moved bowels as per patient denies chest pain or sob has some cough afebrile no nausea or vomitings ok for discharge Review of Systems Review of Systems: as above, rest unremarkable Physical Exam Eyes: PERRL, conjunctivae normal, anicteric sclerae ENMT: Oral mucosa moist Neck: trachea midline, no thyromegaly Respiratory: normal respiratory effort, lungs clear to auscultation Cardiovascular: RRR, no murmur, no edema Gastrointestinal (Abdomen): normal bowel sounds, soft, nontender, no hepatosplenomegaly Skin: no rashes, warm and dry Neurologic: PERRL, EOMI, accommodation nl, no face palsy, no dysarthria Psychiatric: A+Ox3, euthymic affect Results & Data Results & Data ([facility]) Vital Signs (Past 12 Hours) Vital Signs Temp Pulse Pulse Pulse Resp BP Pulse Ox 04/24/22 08:00 83 04/24/22 08:00 04/24/22 07:43 36.5 C 85 18 138/84 96 04/24/22 04:00 04/24/22 03:16 36.7 C 70 74 16 162/81 H 97 04/23/22 23:00 78 04/23/22 22:43 36.6 C 73 18 133/83 96 Pulse Ox O2 Del Method O2 Del Method 04/24/22 08:00 04/24/22 08:00 Room Air 04/24/22 07:43 Room Air 04/24/22 04:00 93 Room Air 04/24/22 03:16 Room Air 04/23/22 23:00 04/23/22 22:43 Room Air
--- NOTE | 2022-04-24 11:16 | Discharge Summary ---
Date of Service April 24, 2022 Admission HPI Per Admitting Provider 66-year-old male with PMH of intellectual disability, HLD, T2DM, OR, chronic ischemic heart disease, ASCVD, HTN, heart failure, reflux esophagitis, dental caries, GERD, BPH, arthritis of hip, spina bifida, depression with anxiety was brought from [facility] facility with chief complaint of nausea and vomiting. Patient was alert and oriented x2 but seems unreliable for history. Staff/special education professional at bedside who reported nausea and multiple episodes of greenish vomiting on the day of arrival. He was not able to keep down anything. At baseline patient is generally alert and oriented and is able to complain/make demands. Patient also was noted to be short of breath with temperature of 102 Fahrenheit and weak along with decreased appetite. Patient is wheelchair-bound per his special education professional. On questioning patient, patient denied any headache or dizziness or chest pain or feeling of heart racing or belly pain. Patient not able to comment why he was brought to the hospital and was not sure about the events during the day that brought him to the hospital. No smoking/alcohol/recreational drug use per special education professional. DNR/DNI per special education professional. Merchandise Buyer Thiago Orellana had recent medication list on patient, which was reviewed. Principal Diagnosis (1) Acute respiratory failure with hypoxia: Plan: 1) Influenza A: (2) Acute respiratory failure with hypoxia: Plan: Clifford presented with nausea, vomiting, fever, shortness of breath, wheezing Patient found to be influenza A positive at admission CXR showedPatchy bilateral airspace opacities. CTA showed no evidence for a central pulmonary embolus. Bilateral airspace opacities most pronounced within the lower lobes which likely represents a pneumonia. Suspect superimposed pulmonary edema. Was on IV Unasyn and doxycycline ->switched to cefepime and doxy Speech consulted - recommended minced and moist diet with thin liquid. Speech will continue to assess him Continue aspiration precaution Respiratory distress possible related to episode of aspiration vs pulmonary edema CXR showed progression of extensive bilateral airspace opacities with interstitial thickening. The findings favor pneumonia or aspiration pneumonitis. Lasix 40mg IV x1 ( Nephrology was notified ) Was placed on high flow oxygen Was on neb treatment, hypertonic saline, chest PT as tolerated Changed abx to cefepime and continue doxycycline Speech on board Pulmonary consulted, appreciate their input - component of diastolic heart failure, recommend to continue diuresis. Continue antibiotics for 10 days. Flutter valve recommended however due to patient's intellectual disability, he is uncooperative Continue monitor closely Currently saturating fine on room air Nephrology recommends lasix 40mg bid and close followup with nephro in 1-2 weeks (3) Elevated troponin: Plan: Elevated troponin I level Mostly demand ischemia due to acute respiratory failure Troponin peaked 1157, now down trending 896 cardiology on board Pt was started on IV heparin drip that was discontinued after discussing case with cardiology ECHO showed Large sized apical, septal, anteroseptal, inferior wall motion ab normality with hypokinesis to akinesis of the segment. Ejection fraction 50 to 55% Continue aspirin and carvedilol Transaminitis Elevated Liver enzymes with AST 167 and ALT 123, continue trending down CT abd/pelvis showedno bowel wall thickening or obstruction. ct abd/pelvis with iv contrast on 04/12/2022: 1. Mild motion artifact. 2. No bowel wall thickening or obstruction. 3. Normal appendix. 4. Cholecystectomy. 5. Hepatic steatosis. followup Acute kidney injury Mostly due to acute illness in the setting of diuretic creatinine increased to 3.4 Renal U/S showed on 04/14/2022: No hydronephrosis. Unremarkable sonographic appearance of the kidneys. creatinine trending down to 1.4 (04/17- 04/18) Nephrology consulted- cWas on 20 IV lasix and increased to TID amlodipine started for BP (lisinopril, clonidine on hold and will stopped at discharge and close monitor.) Continue monitor closely for volume overload Cr 2 (04/21) Cr 1.86 (04/23) Cr 1.9 today 04/24 Nephro wanted close followup and ok for discharge Fever last fever on (04/16 evening) Mostly due to Influenza A or aspiration pna No leukocytosis Blood cx - Negative Continued abx with Cefepime and doxycycline -> switched to PO will complete the course Hyponatremia Na 132 on admission Sodium improved Continue monitor BMP Hypothyroidism Continue Levothyroxine Diabetes stopped metformin because of renal insufficency discharging on Glimiperide 1mg po daily can tritrate based on blood sugar readings HTN stopped clonidine and lisinopril added amlodipine changed coreg to 12.5mg bid changed lasix to 40mg bid. Hyperkalemia potassium 5.2 today stopped KCL supplements lasix increased to 40mg bid followup labs closely on discharge followup with Nephrology closely. DNR/DNI Plan for discharge to [facility]. TO continue pt/ot at discharge Close Followup with PCP and Nephrology. LAbs BMP and LFTs in 2-3days. Discharge Data Allergies Allergy/AdvReac Type Severity Reaction Status Date / Time terbinafine Allergy Mild RASH ON Verified 04/12/22 23:22 ARM? Consultations 04/12/22 00:01 ED Decision to Admit Stat 04/13/22 07:41 Consult Cardiology Routine 04/14/22 07:35 Consult Nephrology Routine 04/15/22 19:17 Consult Pulmonology Routine Ordered Studies 04/11/22 19:24 CT Abd and Pelvis [CT abd pelvis IV con only] Urgent 04/12/22 22:15 CT angio chest PE protocol Stat 04/14/22 12:59 US renal/blad retro comp Routine Total Time Total Time Spent Total Time Spent (In Minutes): 60 minutes Discharge Plan Discharge Items Patient Disposition: Transfer [facility] Reason For Visit: VOMITING, NAUSEA Discharge Diagnosis: Respiratory distress In Activity: Resume your previous activity Non-emergency contact: Primary Care Provider Call non-emergency contact if: you have any medication questions, your symptoms worsen and you have a fever Follow-up/Referrals: Tim Swenson, [Primary Care Provider] - Diet: Carb Consistent or DM2 and Heart Healthy Addtl Attending Provider Instructions: Followup with PCP in 1 week Followup with Nephrology 1-2 weeks Labs: bmp in 2-3 days and follow results with PCP and Nephrology. Diet Speech recommendations: Speech consulted - recommended minced and moist diet with thin liquid Pending Studies at Discharge: No Stand-Alone Forms: My [facility] Skilled Items Patient informed of condition?: Yes DNR: Yes Discharge Level of Care: Skilled Communicable Disease: No Discharge Prognosis: Stable Lines: None Urinary Catheter: No Medications and DC Order Prescriptions: New cefdinir 300 mg Capsule 300 mg PO BID 5 Days Qty: 10 0RF doxycycline hyclate 100 mg Capsule 100 mg PO BID 5 Days Qty: 10 0RF carvedilol 12.5 mg Tablet 12.5 mg PO BID Qty: 60 1RF amlodipine [Norvasc] 5 mg Tablet 5 mg PO QAM Qty: 30 1RF furosemide 40 mg Tablet 40 mg PO BID17 Qty: 60 1RF guaifenesin 200 mg Tablet 200 mg PO Q6H 5 Days Qty: 20 0RF glimepiride 1 mg tablet 1 mg PO QAM Qty: 30 0RF Rx Instructions: administer with breakfast Continued clonazepam 0.5 mg tablet 0.25 mg PO QAM Rx Instructions: 8a & 8p aspirin 81 mg Tablet,Chewable 81 mg PO QAM sennosides [senna] 8.6 mg Tablet 8.6 mg PO BID (DME) lancets [Lancets,Thin] Misc See Rx Instructions .ROUTE .MEDSUPPLY Qty: 50 2RF Rx Instructions: As directed bupropion HCl 300 mg tablet extended release 24 hr 300 mg PO QAM buspirone 15 mg Tablet 15 mg PO BID aripiprazole 15 mg Tablet 15 mg PO QAM quetiapine [Seroquel] 50 mg Tablet 50 mg PO TID Rx Instructions: 8am,2pm,8pm doxepin 10 mg Capsule 10 mg PO HS omeprazole 40 mg Capsule,Delayed Release(Dr/Ec) 40 mg PO DAILYBB Rx Instructions: 7am multivitamin [Daily-Ezekiel] Tablet 1 tab PO QAM venlafaxine 37.5 mg capsule,extended release 24hr 37.5 mg PO QAM venlafaxine 75 mg capsule,extended release 24hr 75 mg PO QAM risperidone 0.25 mg tablet 0.25 mg PO DAILY levothyroxine 75 mcg tablet 75 mcg PO DAILYBB divalproex 500 mg tablet extended release 24 hr 1,500 mg PO HS Discontinued clonidine HCl 0.2 mg tablet 0.2 mg PO BID Rx Instructions: 8a & 8p carvedilol 6.25 mg tablet 6.25 mg PO BID furosemide 40 mg tablet 40 mg PO DAILY Rx Instructions: alternate with 20 mg lisinopril 10 mg tablet 10 mg PO DAILY metformin 850 mg tablet 850 mg PO BID Discharge Orders: Discharge Order (Routine); Ordered 04/24/22 Ordered By: Tha Hernandez Admission Data Admit Date/Time: 04/12/22 02:49 Attending Provider: Tha Hernandez Admit Provider: Ben Wright Primary Care Provider: Tim Swenson Other Providers: Ben Wright ; Domenic Lemon ; Beto Hernandez ; Antoinette Davies ; Latesha Napier
== END 2022-04-24 16:16 | disposition home or self-care (01) | DRG 193 ==
LOC: ED 19:13 → EDINP 04-12 02:49 → SUATTDRO 04-12 02:49 → 2W 04-12 04:43 → 2E 04-12 22:59 → 2S 04-15 16:38

== ENCOUNTER 2022-12-15 18:49 | Inpatient (IN) ==
[2022-12-15 20:29] LABS: iSTAT Creatinine 1.3 mg/dl (0.6-1.3); iSTAT Hemoglobin 12.2 g/dl (14.0-18.0); iSTAT Ionized Calcium 1.14 mmol/l (1.12-1.32); iSTAT Potassium 4.3 mmol/L (3.3-5.0)
[2022-12-15 20:34] LABS: Base Excess VBG 0 mEq/L; HCO3 VBG 25 mmol/L; Oxygen Saturation VBG < 60.0 %; PCO2 VBG 40 mmHg (38-50); PO2 VBG 40 mmHg
[2022-12-15 21:05] LABS: Alanine Aminotransferase 77 U/L (7-52); Albumin Level 3.4 gm/dl (3.4-5.0); Alkaline Phosphatase 85 U/L (34-104); Anion Gap 7 (3-11); BUN Creatinine Ratio 16.5 (10-20); Bilirubin,Total 0.4 mg/dl (0.2-1.0); Blood Urea Nitrogen 20 mg/dl (6-23); Calcium 9.2 mg/dl (8.6-10.3); Carbon Dioxide 22 mmol/L (21-32); Chloride 105 mmol/L (98-107); Creatinine Clr Calc Pharmacy 80.7 ml/min; Est GFR (African American) 72.4 ml/min; Est GFR (Non-African American) 62.4 ml/min; Glucose 153 mg/dl (70-99(Fasting)); Magnesium 2.3 mg/dl (1.7-2.4); Sodium 134 mmol/L (136-145); Total Protein 7.6 gm/dl (6.0-8.3)
[2022-12-15 21:13] LABS: Partial Thromboplastin Ratio 0.7; Partial Thromboplastin Time 20.2 Seconds (21.0-31.0); Prothrombin Time 11.2 Seconds (9.0-12.0)
[2022-12-15 21:14] LABS: Basophils # (auto) 0.03 K/uL (0.00-0.20); Basophils % (auto) 0.3 %; Eosinophils # (auto) 0.05 K/uL (0.00-0.50); Eosinophils % (auto) 0.4 %; Hemoglobin 10.6 g/dl (14.0-18.0); Immature Granulocytes # (auto) 0.06 K/uL (0.01-0.20); Immature Granulocytes % (auto) 0.5 %; Lymphocytes # (auto) 2.19 K/uL (1.20-3.40); Lymphocytes % (auto) 18.5 %; Mean Corpuscular Hemoglobin 29.2 pg (25.0-34.0); Mean Corpuscular Hgb Conc 32.1 g/dL (32.0-36.0); Mean Corpuscular Volume 90.9 fL (80.0-100.0); Mean Platelet Volume 10.9 fL (9.4-12.4); Monocytes # (auto) 1.54 K/uL (0.11-0.59); Neutrophils # (auto) 7.95 K/uL (1.40-6.50); Neutrophils % (auto) 67.3 %; Nucleated RBC # (auto) 0.02 K/uL (0.00-0.12); Nucleated RBC % (auto) 0.2 %; Platelet Count 119 K/uL (130-400); RDW Coefficient of Variation 16.7 % (11.5-14.5); RDW Standard Deviation 55.4 fL (36.4-46.3); Red Blood Count 3.63 M/uL (4.70-6.10); White Blood Count 11.82 K/ul (4.8-10.8)
[2022-12-15 21:18] LABS: Potassium 4.2 mmol/L (3.5-5.1)
[2022-12-15] MEDS ORDERED: IOVERSOL 350 MG 125mL Prefilled Syringe IV ONE (21:20)
[2022-12-15 21:41] LABS: Influenza A virus by PCR Negative (Neg); Influenza B virus by PCR Negative (Neg); RSV by PCR Negative (Neg); SARS CoV2 RNA(COVID-19) Ceph NEGATIVE (Negative)
--- NOTE | 2022-12-15 21:43 | CT Scan Report ---
Exam(s): CT L SPINE EXAM: CT Lumbar Spine Without Intravenous Contrast CLINICAL HISTORY: Reason for exam: fall. TECHNIQUE: Axial computed tomography images of the lumbar spine without intravenous contrast. CTDI is 28.1 mGy and DLP is 1645.53 mGy-cm. Automated exposure control was utilized for the study. A dose lowering technique was utilized adhering to the principles of ALARA. COMPARISON: CT abdomen and pelvis 04/11/22 FINDINGS: Chronic compression fracture of L1 is unchanged from 04/11/22. There is an acute nondisplaced fracture through the left sided L2 inferior endplate osteophyte (series 401, image 31). No other fractures are visualized. Vertebral body alignment is maintained. There is mild disc degeneration at L2-L3. There is mild multilevel facet degeneration. Spinal canal appears congenitally small, with probable superimposed mild stenosis at the L2-L3 level. MRI would be more sensitive. There is multilevel bilateral foraminal narrowing, left greater than right, greatest at the L2-L3 level. Sacroiliac joints are normally aligned. IMPRESSION: 1. Small acute nondisplaced fracture through the left sided L2 inferior endplate osteophyte. 2. Stable chronic compression fracture of L1. Electronically signed by: Sherman Amaya M.D. 12/15/22 21:41 PM
--- NOTE | 2022-12-15 21:45 | CT Scan Report ---
Exam(s): CT ABDOMEN + PELVIS With Contrast IV Amt: 119ml iso 350 EXAM: CT Abdomen and Pelvis With Intravenous Contrast CLINICAL HISTORY: Reason for exam: fall. TECHNIQUE: Axial computed tomography images of the abdomen and pelvis with intravenous contrast. CTDI is 28.1 mGy and DLP is 1645.53 mGy-cm. Automated exposure control was utilized for the study. A dose lowering technique was utilized adhering to the principles of ALARA. CONTRAST: Patient received 119ml iso 350 of IV contrast COMPARISON: CT abdomen and pelvis 04/11/22 FINDINGS: There is a small nondisplaced acute fracture through a left-sided L2 inferior endplate osteophyte, better visualized on concurrently performed CT lumbar spine. There is a stable chronic L1 compression fracture. Regional skeleton appears otherwise intact. Lung bases are clear. Gallbladder surgically absent. There is hepatic steatosis. Spleen, pancreas, adrenal glands, and kidneys are unremarkable. There is atherosclerosis of the abdominal aorta without aneurysm. There is no adenopathy, free fluid, or free air. Urinary bladder and prostate are normal. Appendix is normal. There is no bowel obstruction or inflammation. IMPRESSION: 1. Small acute nondisplaced fracture through a left-sided L2 inferior endplate osteophyte. 2. Otherwise, no acute or significant findings. Electronically signed by: Sherman Amaya M.D. 12/15/22 21:44 PM
[2022-12-15 22:06] LABS: Appearance Urine Clear (Clear); Bilirubin Urine Negative (Negative); Blood Urine Negative (Negative); Color Urine Yellow; Glucose Urine UA 3+ (Negative); Ketones Urine Negative (Negative); Leukocyte Esterase Urine Negative (Negative); Nitrite Urine Negative (Negative); Protein Urine Negative (Negative); Specific Gravity Urine 1.033 (1.000-1.030); Urobilinogen Urine Negative (Negative); pH Urine 5.5 (4.5-7.5)
[2022-12-15] MEDS ORDERED: cefTRIAXone SODIUM 2,000 MG/70 ML BAG IV STA (22:07)
[2022-12-15] MEDS ORDERED: SODIUM CHLORIDE 0.9% 1,000 ML IV ONE (22:07)
--- NOTE | 2022-12-15 22:56 | XRay Report ---
SINGLE VIEW CHEST CLINICAL HISTORY: Sepsis. FINDINGS: An AP, portable, upright chest radiograph is compared to chest x-ray and chest CT dated 05/14. The heart is enlarged. There is pulmonary vascular congestion. Bibasilar opacities likely rep resent scarring/atelectasis. No large pleural effusion or pneumothorax is seen. The skeletal structur es are osteopenic. There are chronic/healed left-sided rib fractures as well as chronic posttraumatic deformity of the left clavicle. Calcific tendinopathy is noted in the left shoulder. IMPRESSION: 1. Cardiomegaly with pulmonary vascular congestion. 2. Bibasilar opacities likely represent scarring/atelectasis. Correlate clinically. ACT 112: Negative or not required by law. Electronically signed by: Jayson Dimas M.D. 12/15/2022 10:55 PM
[2022-12-15] MEDS ORDERED: oxyCODONE/ACETAMINOPHEN 5mg/325mg TAB PO STA (23:33)
[2022-12-16] MEDS ORDERED: LORazepam 0.5 MG TAB PO STA (00:03)
[2022-12-16] MEDS ORDERED: AZITHROMYCIN 250 MG TAB PO ONE (00:05)
--- NOTE | 2022-12-16 00:05 | Emergency Department Note ---
History of Present Illness General Chief complaint: Back Injury/Pain Time Seen by Provider: 12/15/22 19:21 Source: other (Caregiver at bedside) History of Present Illness Provider complaint: Back pain Maximum Pain Intensity: 10 67-year-old male with history of intellectual disability who states a strawberry cruz presents emergency department with caregiver for back pain. Caregiver reports that the patient fell out of bed earlier today. She states the patient was evaluated in the emergency department earlier today and had scans of his head and neck done which were negative and then was sent back to [facility]. Caregiver reports that the patient reported increasing back pain and then she noticed that the patient had a fever [place] cruz. She states she is concerned that the patient might have a UTI. Caregiver reports that the pain is over the lumbar area. Home Medications Medication Instructions Recorded Confirmed Type sennosides 8.6 mg tablet (senna) 8.6 mg PO BID 09/21/18 12/15/22 History lancets (Lancets,Thin) #50 ea 11/07/19 04/11/22 Rx bupropion HCl 300 mg 24 hr tablet, 300 mg PO QAM 05/05/20 12/15/22 History extended release aspirin 81 mg chewable tablet 81 mg PO QAM 06/09/20 12/15/22 History aripiprazole 15 mg tablet (Abilify) 15 mg PO QAM 07/31/20 12/15/22 History buspirone 15 mg tablet 15 mg PO BID 07/31/20 12/15/22 History quetiapine 50 mg tablet (Seroquel) 50 mg PO TID 07/31/20 12/15/22 History doxepin 10 mg capsule 10 mg PO HS 02/07/21 12/15/22 History omeprazole 40 mg capsule,delayed 40 mg PO DAILYBB 05/21/21 12/15/22 History release divalproex 500 mg tablet,extended 1,500 mg PO HS 04/11/22 12/15/22 History release 24 hr multivitamin (Daily-Ezekiel tablet) 1 tab PO QAM 04/11/22 12/15/22 History risperidone 0.25 mg tablet 0.25 mg PO QAM 04/11/22 12/15/22 History venlafaxine 37.5 mg 37.5 mg PO QAM 04/11/22 12/15/22 History capsule,extended release 24 hr venlafaxine 75 mg capsule,extended 75 mg PO QAM 04/11/22 12/15/22 History release 24 hr amlodipine 10 mg tablet 10 mg PO QAM 07/16/22 12/15/22 History furosemide 40 mg tablet 40 mg PO QAM 07/16/22 12/15/22 History lisinopril 10 mg tablet 10 mg PO QAM 07/16/22 12/15/22 History acetaminophen 325 mg tablet 1,300 mg PO Q6H PRN Pain 12/15/22 12/15/22 History ammonium lactate 12 % topical cream 1 applic topical DAILY PRN other 12/15/22 12/15/22 History bisacodyl 5 mg tablet,delayed 5 mg PO DAILY PRN Constipation 12/15/22 12/15/22 History release calcium carbonate 750 mg PO DIRECTED 12/15/22 12/15/22 History carvedilol 25 mg tablet 25 mg PO BID 12/15/22 12/15/22 History diclofenac sodium 1 % topical gel 1 ea topical DAILY PRN Other 12/15/22 12/15/22 History empagliflozin 25 mg tablet 25 mg PO QAM 12/15/22 12/15/22 History (Jardiance) glimepiride 2 mg tablet 2 mg PO QAM 12/15/22 12/15/22 History guaifenesin 600 mg tablet, 600 mg PO BID PRN Congestion 12/15/22 12/15/22 History extended release 12 hr (Mucinex) levothyroxine 100 mcg tablet 100 mcg PO QAM 12/15/22 12/15/22 History white petrolatum (Petroleum Jelly 1 applic topical DAILY PRN Dry Skin 12/15/22 12/15/22 History topical) Allergies Allergy/AdvReac Type Severity Reaction Status Date / Time terbinafine Allergy Mild RASH ON Verified 07/23/22 08:56 ARM? Past Med/Surg History Medical History Anemia Arthritis Cataract Cerebral palsy Chronic ischemic heart disease Combative behavior Coronary artery disease Diabetes mellitus, type 2 Dysphagia Fall Fall risk GERD (gastroesophageal reflux disease) Hyperlipidemia Hypertension Hypothyroidism Impulse control disorder Intermittent explosive disorder [place] Moderate intellectual disabilities sister/POA -ASHLEY IRENE [phone]-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 SIGNS CONSENTS MRSA (methicillin resistant Staphylococcus aureus) carrier Myocardial infarction Remote hx per records > medically managed Obesity Severe anxiety Spina bifida Thrombocytopenia Chronic thrombocytopenia, baseline platelets low 100s per chart review Vocal cord paralysis, unilateral complete Surgical History H/O tooth extraction History of bronchoscopy Flexible bronchoscopy with BAL (02/04/18): Grade view 1, Elective glidescope #4, ETT 8.5 at [facility] (done for aspiration PNA) History of colonoscopy EGD/colonoscopy (12/07/19): MAC sedation at [facility] History of esophagogastroduodenoscopy (EGD) History of laparoscopic cholecystectomy Laparoscopic cholecystectomy [address] Wolff Family History Other No significant family history Social History Smoking Status: Never smoker Second Hand Exposure: No; Do You Dip or Chew Tobacco: No; Hx Alcohol Use: No Hx Substance Use: No Preferred Language: Welsh Communication Ability: Effective Communication Ability Comment: PT IS INTELLECTUALLY IMPAIRED Director Writing Required: No Beliefs That Will Affect Care: None marital status: Single Current Living Situation: [facility] Current Living Situation Comment: [facility]UZ current occupational status: disabled Feels Safe at Home: Yes Assistive Devices: Walker and Wheelchair Physical Exam Vital Signs Vital Signs - 24 hr 12/15/22 19:04 12/15/22 18:56 12/15/22 19:34 Temperature 37.7 C H Temperature Source Oral Pulse Rate 84 Pulse Rate [Apical] 84 Pulse Rate from SpO2 Sensor Respiratory Rate 22 Respiratory Effort / Characteristics Non-Labored Spontaneous Respiratory Depth Normal Blood Pressure Blood Pressure [Right Arm] 161/79 H Blood Pressure Mean Blood Pressure Mean [Right Arm] 106 Pulse Oximetry 95 Oxygen Delivery Method Room Air Sepsis Recent Fever Within 48 Hours Yes Sepsis New/Unexplained Change in Mental Status No Sepsis Action Taken by Nursing No Action Required 12/15/22 20:00 12/15/22 20:30 12/15/22 21:25 Temperature Temperature Source Pulse Rate 92 H Pulse Rate [Apical] Pulse Rate from SpO2 Sensor 92 H 83 Respiratory Rate 17 21 Respiratory Effort / Characteristics Respiratory Depth Blood Pressure Blood Pressure [Right Arm] Blood Pressure Mean Blood Pressure Mean [Right Arm] Pulse Oximetry 96 95 96 Oxygen Delivery Method Room Air Room Air Room Air Sepsis Recent Fever Within 48 Hours Sepsis New/Unexplained Change in Mental Status Sepsis Action Taken by Nursing 12/15/22 21:26 12/15/22 21:25 12/15/22 22:01 Temperature Temperature Source Pulse Rate 91 H 83 Pulse Rate [Apical] 91 H Pulse Rate from SpO2 Sensor 91 H 84 Respiratory Rate 20 21 19 Respiratory Effort / Characteristics Non-Labored Spontaneous Respiratory Depth Normal Blood Pressure 169/87 H 142/77 H Blood Pressure [Right Arm] 169/87 H Blood Pressure Mean 114 98 Blood Pressure Mean [Right Arm] 114 Pulse Oximetry 96 96 97 Oxygen Delivery Method Room Air Room Air Room Air Sepsis Recent Fever Within 48 Hours Sepsis New/Unexplained Change in Mental Status Sepsis Action Taken by Nursing 12/15/22 22:30 12/15/22 23:00 Temperature Temperature Source Pulse Rate 85 84 Pulse Rate [Apical] Pulse Rate from SpO2 Sensor 85 Respiratory Rate 18 Respiratory Effort / Characteristics Respiratory Depth Blood Pressure Blood Pressure [Right Arm] Blood Pressure Mean Blood Pressure Mean [Right Arm] Pulse Oximetry 95 Oxygen Delivery Method Room Air Sepsis Recent Fever Within 48 Hours Sepsis New/Unexplained Change in Mental Status Sepsis Action Taken by Nursing Physical Exam HENT: Exam performed. - Head: Normocephalic and atraumatic. EYES: Conjunctivae and EOM are normal. Pupils are equal, round, and reactive to light. Right eye exhibits no discharge. Left eye exhibits no discharge. No scleral icterus. NECK: Normal range of motion. Neck supple. No JVD present. No spinous process tenderness present. CV: Normal rate, regular rhythm, normal heart sounds and intact distal pulses. There is no peripheral edema. Palpable radial pulses bue. PULM/CHEST: Effort normal and breath sounds normal. No respiratory distress. No stridor. He has no wheezes. He has no rales. ABD: The abdomen is soft. There is no tenderness. There is no rebound, no guarding MUSC/SKEL: Pelvis stable. NEURO: Motor and sensation grossly intact at baseline mental status per caregiver. Course Course 1920: The patient was evaluated in room A4. A complete history and physical exam was performed Administered Medications Discontinued Medications Azithromycin (Azithromycin 250 Mg Tab) 500 mg PO NOW ONE Stop: 12/16/22 00:06 Last Admin: 12/16/22 00:32 Dose: 500 mg Documented By: ANASTASIIA Sodium Chloride (Nss 1000ml) 1,000 mls @ 999 mls/hr IV .[id number] ONE Stop: 12/15/22 23:07 Last Infusion: 12/15/22 23:36 Dose: 0 mls/hr Documented By: Admin: 12/15/22 22:24 Dose: 999 mls/hr Documented By: ECHO Ceftriaxone Sodium (Rocephin) 2,000 mg in 70 mls @ 140 mls/hr IV NOW STA Stop: 12/15/22 22:36 Last Infusion: 12/15/22 23:01 Dose: 0 mls/hr Documented By: Admin: 12/15/22 22:23 Dose: 140 mls/hr Documented By: ECHO Ioversol (Ioversol 350 Mg 125ml Prefilled Syringe) 119 ml IV ONCE ONE Stop: 12/15/22 21:21 Last Admin: 12/15/22 21:21 Dose: 119 ml Documented By: STEFANY Lorazepam (Lorazepam 0.5 Mg Tab) 0.5 mg PO NOW STA Stop: 12/16/22 00:04 Last Admin: 12/16/22 00:32 Dose: 0.5 mg Documented By: ANASTASIIA Oxycodone/Acetaminophen (Oxycodone/Acetaminophen 5mg/325mg Tab) 1 tab PO NOW STA Stop: 12/15/22 23:34 Last Admin: 12/15/22 23:40 Dose: 1 tab Documented By: ELVIE Medical Decision Making Medical Records Attestation: I reviewed the patient's medical records. External medical records reviewed. Patient was seen earlier in the emergency department today and had a negative CT head and negative CT C-spine. Laboratory Data Attestation: I reviewed the patient's lab results. 12/15/22 20:59 12/15/22 20:25 Lab Results 12/15/22 12/15/22 12/15/22 Range/Units 19:10 19:11 20:12 WBC Cancelled RBC Cancelled Hgb Cancelled POC Hgb (14.0-18.0) g/dl Hct Cancelled POC Hct (42-52) % MCV Cancelled MCH Cancelled MCHC Cancelled RDW Std Deviation Cancelled RDW Coeff of Josiah Cancelled Plt Count Cancelled MPV Cancelled Immature Gran % (Auto) Cancelled Neut % (Auto) Cancelled Lymph % (Auto) Cancelled [place] % (Auto) Cancelled Eos % (Auto) Cancelled Baso % (Auto) Cancelled Neut # (Auto) Cancelled Lymph # (Auto) Cancelled [place] # (Auto) Cancelled Eos # (Auto) Cancelled Baso # (Auto) Cancelled Immature Gran # (Auto) Cancelled Absolute Nucleated RBC Cancelled Nucleated RBC % (auto) Cancelled Neutrophils % (Manual) Cancelled Band Neutrophils % Cancelled Lymphocytes % (Manual) Cancelled Prolymphocyte % Cancelled Reactive Lymphs % (Man) Cancelled Monocytes % (Manual) Cancelled Eosinophils % (Manual) Cancelled Basophils % (Manual) Cancelled Metamyelocytes % (Man) Cancelled Myelocytes % (Man) Cancelled Promyelocytes % (Man) Cancelled Blast Cells % (Manual) Cancelled Plasma Cell % (Manual) Cancelled Other Cells % Cancelled Nucleated RBC % Cancelled Neutrophils # (Manual) Cancelled Band Neutrophils # Cancelled Total Absolute Neuts Cancelled Lymphocytes # (Manual) Cancelled Prolymphocyte # Cancelled Reactive Lymphs # Cancelled Total Abs Lymphocytes Cancelled Monocytes # (Manual) Cancelled Eosinophils # (Manual) Cancelled Basophils # (Manual) Cancelled Metamyelocytes # (Man) Cancelled Myelocytes # (Manual) Cancelled Promyelocytes # (Man) Cancelled Blast Cells # (Man) Cancelled Plasma Cell # (Manual) Cancelled Other Cells # Cancelled Nucleated RBCs # (Man) Cancelled Hypersegmented Neuts Cancelled Hyposegmented Neuts Cancelled Hypogranular Neuts Cancelled Large Granular Lymphs Cancelled # Lrg Granular Lymphs Cancelled Hairy Cells Cancelled Smudge Cells Cancelled Toxic Granulation Cancelled Toxic Vacuolation Cancelled Dohle Bodies Cancelled Aretha Rods Cancelled Platelet Estimate Cancelled Hypogranular Platelets Cancelled Giant Platelets Cancelled Platelet Satelliting Cancelled RBC Morphology Cancelled Polychromasia Cancelled Hypochromasia Cancelled Poikilocytosis Cancelled Basophilic Stippling Cancelled Anisocytosis Cancelled Microcytosis Cancelled Macrocytosis Cancelled Spherocytes Cancelled Pappenheimer Bodies Cancelled Sickle Cells Cancelled Target Cells Cancelled Tear Drop Cells Cancelled Ovalocytes Cancelled Stomatocytes Cancelled [place] Bodies Cancelled Echinocytes Cancelled Acanthocytes (Spur) Cancelled Rouleaux Cancelled RBC Agglutinates Cancelled Schistocytes Cancelled Sezary Cell Cancelled PT (9.0-12.0) Seconds INR (0.9-1.1) APTT (21.0-31.0) Seconds PTT Ratio VBG pH (7.36-7.41) VBG pCO2 (38-50) mmHg VBG pO2 mmHg VBG HCO3 mmol/L VBG O2 Saturation % VBG Base Excess mEq/L POC Sodium (135-144) mmol/L Sodium (136-145) mmol/L POC Potassium (3.3-5.0) mmol/L Potassium POC Chloride (101-112) mmol/L Chloride (98-107) mmol/L Carbon Dioxide (21-32) mmol/L POC Total CO2 (24-31) mmol/L Anion Gap (3-11) POC Anion Gap (16-25) mmol/L POC BUN (7-18) mg/dl BUN (6-23) mg/dl Creatinine (0.6-1.4) mg/dl POC Creatinine (0.6-1.3) mg/dl Est Cr Clr Drug Dosing ml/min Est GFR ( Amer) ml/min Est GFR (Non-Af Amer) ml/min BUN/Creatinine Ratio (10-20) Glucose (70-99(Fasting)) mg/dl POC Glucose 176 H (70-99) mg/dl POC Glucose (other) (70-99) mg/dl Lactate (0.4-2.0) mmol/L Calcium (8.6-10.3) mg/dl POC Ioniz Calcium Giselle (1.12-1.32) mmol/l Magnesium (1.7-2.4) mg/dl Total Bilirubin (0.2-1.0) mg/dl Direct Bilirubin AST ALT (7-52) U/L Alkaline Phosphatase (34-104) U/L Total Protein (6.0-8.3) gm/dl Albumin (3.4-5.0) gm/dl Procalcitonin Urine Color Urine Appearance (Clear) Urine pH (4.5-7.5) Ur Specific Daniels (1.000-1.030) Urine Protein (Negative) Urine Glucose (UA) (Negative) Urine Ketones (Negative) Urine Blood (Negative) Urine Nitrite (Negative) Urine Bilirubin (Negative) Urine Urobilinogen (Negative) Ur Leukocyte Esterase (Negative) SARS-CoV-2 (PCR) (Negative) Influenza Type A (PCR) (Neg) Influenza Type B (PCR) (Neg) RSV (RT-PCR) (Neg) SARS-CoV-2, RNA, NAAT NEGATIVE (NEGATIVE) Blood Parasites ID Cancelled 12/15/22 12/15/22 12/15/22 Range/Units 20:12 20:12 20:12 WBC RBC Hgb POC Hgb (14.0-18.0) g/dl Hct POC Hct (42-52) % MCV MCH MCHC RDW Std Deviation RDW Coeff of Josiah Plt Count MPV Immature Gran % (Auto) Neut % (Auto) Lymph % (Auto) [place] % (Auto) Eos % (Auto) Baso % (Auto) Neut # (Auto) Lymph # (Auto) [place] # (Auto) Eos # (Auto) Baso # (Auto) Immature Gran # (Auto) Absolute Nucleated RBC Nucleated RBC % (auto) Neutrophils % (Manual) Band Neutrophils % Lymphocytes % (Manual) Prolymphocyte % Reactive Lymphs % (Man) Monocytes % (Manual) Eosinophils % (Manual) Basophils % (Manual) Metamyelocytes % (Man) Myelocytes % (Man) Promyelocytes % (Man) Blast Cells % (Manual) Plasma Cell % (Manual) Other Cells % Nucleated RBC % Neutrophils # (Manual) Band Neutrophils # Total Absolute Neuts Lymphocytes # (Manual) Prolymphocyte # Reactive Lymphs # Total Abs Lymphocytes Monocytes # (Manual) Eosinophils # (Manual) Basophils # (Manual) Metamyelocytes # (Man) Myelocytes # (Manual) Promyelocytes # (Man) Blast Cells # (Man) Plasma Cell # (Manual) Other Cells # Nucleated RBCs # (Man) Hypersegmented Neuts Hyposegmented Neuts Hypogranular Neuts Large Granular Lymphs # Lrg Granular Lymphs Hairy Cells Smudge Cells Toxic Granulation Toxic Vacuolation Dohle Bodies Aretha Rods Platelet Estimate Hypogranular Platelets Giant Platelets Platelet Satelliting RBC Morphology Polychromasia Hypochromasia Poikilocytosis Basophilic Stippling Anisocytosis Microcytosis Macrocytosis Spherocytes Pappenheimer Bodies Sickle Cells Target Cells Tear Drop Cells Ovalocytes Stomatocytes [place] Bodies Echinocytes Acanthocytes (Spur) Rouleaux RBC Agglutinates Schistocytes Sezary Cell PT 11.2 (9.0-12.0) Seconds INR 1.0 (0.9-1.1) APTT 20.2 L (21.0-31.0) Seconds PTT Ratio 0.7 VBG pH (7.36-7.41) VBG pCO2 (38-50) mmHg VBG pO2 mmHg VBG HCO3 mmol/L VBG O2 Saturation % VBG Base Excess mEq/L POC Sodium (135-144) mmol/L Sodium 134 L (136-145) mmol/L POC Potassium (3.3-5.0) mmol/L Potassium TNP POC Chloride (101-112) mmol/L Chloride 105 (98-107) mmol/L Carbon Dioxide 22 (21-32) mmol/L POC Total CO2 (24-31) mmol/L Anion Gap 7 (3-11) POC Anion Gap (16-25) mmol/L POC BUN (7-18) mg/dl BUN 20 (6-23) mg/dl Creatinine 1.21 (0.6-1.4) mg/dl POC Creatinine (0.6-1.3) mg/dl Est Cr Clr Drug Dosing 80.7 ml/min Est GFR ( Amer) 72.4 ml/min Est GFR (Non-Af Amer) 62.4 ml/min BUN/Creatinine Ratio 16.5 (10-20) Glucose 153 H (70-99(Fasting)) mg/dl POC Glucose (70-99) mg/dl POC Glucose (other) (70-99) mg/dl Lactate 2.1 H* (0.4-2.0) mmol/L Calcium 9.2 (8.6-10.3) mg/dl POC Ioniz Calcium Giselle (1.12-1.32) mmol/l Magnesium 2.3 (1.7-2.4) mg/dl Total Bilirubin 0.4 (0.2-1.0) mg/dl Direct Bilirubin TNP AST TNP ALT 77 H (7-52) U/L Alkaline Phosphatase 85 (34-104) U/L Total Protein 7.6 (6.0-8.3) gm/dl Albumin 3.4 (3.4-5.0) gm/dl Procalcitonin Urine Color Urine Appearance (Clear) Urine pH (4.5-7.5) Ur Specific Daniels (1.000-1.030) Urine Protein (Negative) Urine Glucose (UA) (Negative) Urine Ketones (Negative) Urine Blood (Negative) Urine Nitrite (Negative) Urine Bilirubin (Negative) Urine Urobilinogen (Negative) Ur Leukocyte Esterase (Negative) SARS-CoV-2 (PCR) (Negative) Influenza Type A (PCR) (Neg) Influenza Type B (PCR) (Neg) RSV (RT-PCR) (Neg) SARS-CoV-2, RNA, NAAT (NEGATIVE) Blood Parasites ID 12/15/22 12/15/22 12/15/22 Range/Units 20:12 20:17 20:24 WBC RBC Hgb POC Hgb 12.2 L (14.0-18.0) g/dl Hct POC Hct 36 L (42-52) % MCV MCH MCHC RDW Std Deviation RDW Coeff of Josiah Plt Count MPV Immature Gran % (Auto) Neut % (Auto) Lymph % (Auto) [place] % (Auto) Eos % (Auto) Baso % (Auto) Neut # (Auto) Lymph # (Auto) [place] # (Auto) Eos # (Auto) Baso # (Auto) Immature Gran # (Auto) Absolute Nucleated RBC Nucleated RBC % (auto) Neutrophils % (Manual) Band Neutrophils % Lymphocytes % (Manual) Prolymphocyte % Reactive Lymphs % (Man) Monocytes % (Manual) Eosinophils % (Manual) Basophils % (Manual) Metamyelocytes % (Man) Myelocytes % (Man) Promyelocytes % (Man) Blast Cells % (Manual) Plasma Cell % (Manual) Other Cells % Nucleated RBC % Neutrophils # (Manual) Band Neutrophils # Total Absolute Neuts Lymphocytes # (Manual) Prolymphocyte # Reactive Lymphs # Total Abs Lymphocytes Monocytes # (Manual) Eosinophils # (Manual) Basophils # (Manual) Metamyelocytes # (Man) Myelocytes # (Manual) Promyelocytes # (Man) Blast Cells # (Man) Plasma Cell # (Manual) Other Cells # Nucleated RBCs # (Man) Hypersegmented Neuts Hyposegmented Neuts Hypogranular Neuts Large Granular Lymphs # Lrg Granular Lymphs Hairy Cells Smudge Cells Toxic Granulation Toxic Vacuolation Dohle Bodies Aretha Rods Platelet Estimate Hypogranular Platelets Giant Platelets Platelet Satelliting RBC Morphology Polychromasia Hypochromasia Poikilocytosis Basophilic Stippling Anisocytosis Microcytosis Macrocytosis Spherocytes Pappenheimer Bodies Sickle Cells Target Cells Tear Drop Cells Ovalocytes Stomatocytes [place] Bodies Echinocytes Acanthocytes (Spur) Rouleaux RBC Agglutinates Schistocytes Sezary Cell PT (9.0-12.0) Seconds INR (0.9-1.1) APTT (21.0-31.0) Seconds PTT Ratio VBG pH 7.40 (7.36-7.41) VBG pCO2 40 (38-50) mmHg VBG pO2 40 mmHg VBG HCO3 25 mmol/L VBG O2 Saturation < 60.0 % VBG Base Excess 0 mEq/L POC Sodium 140 (135-144) mmol/L Sodium (136-145) mmol/L POC Potassium 4.3 (3.3-5.0) mmol/L Potassium POC Chloride 106 (101-112) mmol/L Chloride (98-107) mmol/L Carbon Dioxide (21-32) mmol/L POC Total CO2 22 L (24-31) mmol/L Anion Gap (3-11) POC Anion Gap 17.0 (16-25) mmol/L POC BUN 20 H (7-18) mg/dl BUN (6-23) mg/dl Creatinine (0.6-1.4) mg/dl POC Creatinine 1.3 (0.6-1.3) mg/dl Est Cr Clr Drug Dosing ml/min Est GFR ( Amer) ml/min Est GFR (Non-Af Amer) ml/min BUN/Creatinine Ratio (10-20) Glucose (70-99(Fasting)) mg/dl POC Glucose (70-99) mg/dl POC Glucose (other) 158 H (70-99) mg/dl Lactate (0.4-2.0) mmol/L Calcium (8.6-10.3) mg/dl POC Ioniz Calcium Giselle 1.14 (1.12-1.32) mmol/l Magnesium (1.7-2.4) mg/dl Total Bilirubin (0.2-1.0) mg/dl Direct Bilirubin AST ALT (7-52) U/L Alkaline Phosphatase (34-104) U/L Total Protein (6.0-8.3) gm/dl Albumin (3.4-5.0) gm/dl Procalcitonin Cancelled Urine Color Urine Appearance (Clear) Urine pH (4.5-7.5) Ur Specific Daniels (1.000-1.030) Urine Protein (Negative) Urine Glucose (UA) (Negative) Urine Ketones (Negative) Urine Blood (Negative) Urine Nitrite (Negative) Urine Bilirubin (Negative) Urine Urobilinogen (Negative) Ur Leukocyte Esterase (Negative) SARS-CoV-2 (PCR) (Negative) Influenza Type A (PCR) (Neg) Influenza Type B (PCR) (Neg) RSV (RT-PCR) (Neg) SARS-CoV-2, RNA, NAAT (NEGATIVE) Blood Parasites ID 12/15/22 12/15/22 12/15/22 Range/Units 20:25 20:47 20:59 WBC 11.82 H RBC 3.63 L Hgb 10.6 L POC Hgb (14.0-18.0) g/dl Hct 33.0 L POC Hct (42-52) % MCV 90.9 MCH 29.2 MCHC 32.1 RDW Std Deviation 55.4 H RDW Coeff of Josiah 16.7 H Plt Count 119 L MPV 10.9 Immature Gran % (Auto) 0.5 Neut % (Auto) 67.3 Lymph % (Auto) 18.5 [place] % (Auto) 13.0 Eos % (Auto) 0.4 Baso % (Auto) 0.3 Neut # (Auto) 7.95 H Lymph # (Auto) 2.19 [place] # (Auto) 1.54 H Eos # (Auto) 0.05 Baso # (Auto) 0.03 Immature Gran # (Auto) 0.06 Absolute Nucleated RBC 0.02 Nucleated RBC % (auto) 0.2 Neutrophils % (Manual) Band Neutrophils % Lymphocytes % (Manual) Prolymphocyte % Reactive Lymphs % (Man) Monocytes % (Manual) Eosinophils % (Manual) Basophils % (Manual) Metamyelocytes % (Man) Myelocytes % (Man) Promyelocytes % (Man) Blast Cells % (Manual) Plasma Cell % (Manual) Other Cells % Nucleated RBC % Neutrophils # (Manual) Band Neutrophils # Total Absolute Neuts Lymphocytes # (Manual) Prolymphocyte # Reactive Lymphs # Total Abs Lymphocytes Monocytes # (Manual) Eosinophils # (Manual) Basophils # (Manual) Metamyelocytes # (Man) Myelocytes # (Manual) Promyelocytes # (Man) Blast Cells # (Man) Plasma Cell # (Manual) Other Cells # Nucleated RBCs # (Man) Hypersegmented Neuts Hyposegmented Neuts Hypogranular Neuts Large Granular Lymphs # Lrg Granular Lymphs Hairy Cells Smudge Cells Toxic Granulation Toxic Vacuolation Dohle Bodies Aretha Rods Platelet Estimate Hypogranular Platelets Giant Platelets Platelet Satelliting RBC Morphology Polychromasia Hypochromasia Poikilocytosis Basophilic Stippling Anisocytosis Microcytosis Macrocytosis Spherocytes Pappenheimer Bodies Sickle Cells Target Cells Tear Drop Cells Ovalocytes Stomatocytes [place] Bodies Echinocytes Acanthocytes (Spur) Rouleaux RBC Agglutinates Schistocytes Sezary Cell PT (9.0-12.0) Seconds INR (0.9-1.1) APTT (21.0-31.0) Seconds PTT Ratio VBG pH (7.36-7.41) VBG pCO2 (38-50) mmHg VBG pO2 mmHg VBG HCO3 mmol/L VBG O2 Saturation % VBG Base Excess mEq/L POC Sodium (135-144) mmol/L Sodium (136-145) mmol/L POC Potassium (3.3-5.0) mmol/L Potassium 4.2 POC Chloride (101-112) mmol/L Chloride (98-107) mmol/L Carbon Dioxide (21-32) mmol/L POC Total CO2 (24-31) mmol/L Anion Gap (3-11) POC Anion Gap (16-25) mmol/L POC BUN (7-18) mg/dl BUN (6-23) mg/dl Creatinine (0.6-1.4) mg/dl POC Creatinine (0.6-1.3) mg/dl Est Cr Clr Drug Dosing ml/min Est GFR ( Amer) ml/min Est GFR (Non-Af Amer) ml/min BUN/Creatinine Ratio (10-20) Glucose (70-99(Fasting)) mg/dl POC Glucose (70-99) mg/dl POC Glucose (other) (70-99) mg/dl Lactate (0.4-2.0) mmol/L Calcium (8.6-10.3) mg/dl POC Ioniz Calcium Giselle (1.12-1.32) mmol/l Magnesium (1.7-2.4) mg/dl Total Bilirubin (0.2-1.0) mg/dl Direct Bilirubin 0.0 AST 61 H ALT (7-52) U/L Alkaline Phosphatase (34-104) U/L Total Protein (6.0-8.3) gm/dl Albumin (3.4-5.0) gm/dl Procalcitonin Urine Color Urine Appearance (Clear) Urine pH (4.5-7.5) Ur Specific Daniels (1.000-1.030) Urine Protein (Negative) Urine Glucose (UA) (Negative) Urine Ketones (Negative) Urine Blood (Negative) Urine Nitrite (Negative) Urine Bilirubin (Negative) Urine Urobilinogen (Negative) Ur Leukocyte Esterase (Negative) SARS-CoV-2 (PCR) NEGATIVE (Negative) Influenza Type A (PCR) Negative (Neg) Influenza Type B (PCR) Negative (Neg) RSV (RT-PCR) Negative (Neg) SARS-CoV-2, RNA, NAAT (NEGATIVE) Blood Parasites ID 12/15/22 12/15/22 12/15/22 Range/Units 20:59 21:50 22:23 WBC RBC Hgb POC Hgb (14.0-18.0) g/dl Hct POC Hct (42-52) % MCV MCH MCHC RDW Std Deviation RDW Coeff of Josiah Plt Count MPV Immature Gran % (Auto) Neut % (Auto) Lymph % (Auto) [place] % (Auto) Eos % (Auto) Baso % (Auto) Neut # (Auto) Lymph # (Auto) [place] # (Auto) Eos # (Auto) Baso # (Auto) Immature Gran # (Auto) Absolute Nucleated RBC Nucleated RBC % (auto) Neutrophils % (Manual) Band Neutrophils % Lymphocytes % (Manual) Prolymphocyte % Reactive Lymphs % (Man) Monocytes % (Manual) Eosinophils % (Manual) Basophils % (Manual) Metamyelocytes % (Man) Myelocytes % (Man) Promyelocytes % (Man) Blast Cells % (Manual) Plasma Cell % (Manual) Other Cells % Nucleated RBC % Neutrophils # (Manual) Band Neutrophils # Total Absolute Neuts Lymphocytes # (Manual) Prolymphocyte # Reactive Lymphs # Total Abs Lymphocytes Monocytes # (Manual) Eosinophils # (Manual) Basophils # (Manual) Metamyelocytes # (Man) Myelocytes # (Manual) Promyelocytes # (Man) Blast Cells # (Man) Plasma Cell # (Manual) Other Cells # Nucleated RBCs # (Man) Hypersegmented Neuts Hyposegmented Neuts Hypogranular Neuts Large Granular Lymphs # Lrg Granular Lymphs Hairy Cells Smudge Cells Toxic Granulation Toxic Vacuolation Dohle Bodies Aretha Rods Platelet Estimate Hypogranular Platelets Giant Platelets Platelet Satelliting RBC Morphology Polychromasia Hypochromasia Poikilocytosis Basophilic Stippling Anisocytosis Microcytosis Macrocytosis Spherocytes Pappenheimer Bodies Sickle Cells Target Cells Tear Drop Cells Ovalocytes Stomatocytes [place] Bodies Echinocytes Acanthocytes (Spur) Rouleaux RBC Agglutinates Schistocytes Sezary Cell PT (9.0-12.0) Seconds INR (0.9-1.1) APTT (21.0-31.0) Seconds PTT Ratio VBG pH (7.36-7.41) VBG pCO2 (38-50) mmHg VBG pO2 mmHg VBG HCO3 mmol/L VBG O2 Saturation % VBG Base Excess mEq/L POC Sodium (135-144) mmol/L Sodium (136-145) mmol/L POC Potassium (3.3-5.0) mmol/L Potassium POC Chloride (101-112) mmol/L Chloride (98-107) mmol/L Carbon Dioxide (21-32) mmol/L POC Total CO2 (24-31) mmol/L Anion Gap (3-11) POC Anion Gap (16-25) mmol/L POC BUN (7-18) mg/dl BUN (6-23) mg/dl Creatinine (0.6-1.4) mg/dl POC Creatinine (0.6-1.3) mg/dl Est Cr Clr Drug Dosing ml/min Est GFR ( Amer) ml/min Est GFR (Non-Af Amer) ml/min BUN/Creatinine Ratio (10-20) Glucose (70-99(Fasting)) mg/dl POC Glucose (70-99) mg/dl POC Glucose (other) (70-99) mg/dl Lactate 2.1 H* (0.4-2.0) mmol/L Calcium (8.6-10.3) mg/dl POC Ioniz Calcium Giselle (1.12-1.32) mmol/l Magnesium (1.7-2.4) mg/dl Total Bilirubin (0.2-1.0) mg/dl Direct Bilirubin AST ALT (7-52) U/L Alkaline Phosphatase (34-104) U/L Total Protein (6.0-8.3) gm/dl Albumin (3.4-5.0) gm/dl Procalcitonin 0.13 Urine Color Yellow Urine Appearance Clear (Clear) Urine pH 5.5 (4.5-7.5) Ur Specific Daniels 1.033 H (1.000-1.030) Urine Protein Negative (Negative) Urine Glucose (UA) 3+ H (Negative) Urine Ketones Negative (Negative) Urine Blood Negative (Negative) Urine Nitrite Negative (Negative) Urine Bilirubin Negative (Negative) Urine Urobilinogen Negative (Negative) Ur Leukocyte Esterase Negative (Negative) SARS-CoV-2 (PCR) (Negative) Influenza Type A (PCR) (Neg) Influenza Type B (PCR) (Neg) RSV (RT-PCR) (Neg) SARS-CoV-2, RNA, NAAT (NEGATIVE) Blood Parasites ID Imaging Data Attestation: I personally reviewed and interpreted this imaging study as follows: My Impression: Chest x-ray: Cardiomegaly with vascular congestion Radiologist's Impression: Chest X-Ray 12/15/22 19:34 SINGLE VIEW CHEST CLINICAL HISTORY: Sepsis. FINDINGS: An AP, portable, upright chest radiograph is compared to chest x-ray and chest CT dated 05/27/2022. The heart is enlarged. There is pulmonary vascular congestion. Bibasilar opacities likely represent scarring/atelectasis. No large pleural effusion or pneumothorax is seen. The skeletal structures are osteopenic. There are chronic/healed left-sided rib fractures as well as chronic posttraumatic deformity of the left clavicle. Calcific tendinopathy is noted in the left shoulder. IMPRESSION: 1. Cardiomegaly with pulmonary vascular congestion. 2. Bibasilar opacities likely represent scarring/atelectasis. Correlate clinically. ACT 112: Negative or not required by law. Electronically signed by: Jayson Dimas M.D. 12/15/2022 10:[address] 12/15/22 19:34 Exam(s): CT L SPINE EXAM: CT Lumbar Spine Without Intravenous Contrast CLINICAL HISTORY: Reason for exam: fall. TECHNIQUE: Axial computed tomography images of the lumbar spine without intravenous contrast. CTDI is 28.1 mGy and DLP is 1645.53 mGy-cm. Automated exposure control was utilized for the study. A dose lowering technique was utilized adhering to the principles of ALARA. COMPARISON: CT abdomen and pelvis 04/11/22 FINDINGS: Chronic compression fracture of L1 is unchanged from 04/11/22. There is an acute nondisplaced fracture through the left sided L2 inferior endplate osteophyte (series 401, image 31). No other fractures are visualized. Vertebral body alignment is maintained. There is mild disc degeneration at L2-L3. There is mild multilevel facet degeneration. Spinal canal appears congenitally small, with probable superimposed mild stenosis at the L2-L3 level. MRI would be more sensitive. There is multilevel bilateral foraminal narrowing, left greater than right, greatest at the L2-L3 level. Sacroiliac joints are normally aligned. IMPRESSION: 1. Small acute nondisplaced fracture through the left sided L2 inferior endplate osteophyte. 2. Stable chronic compression fracture of L1. Electronically signed by: Sherman Amaya M.D. 12/15/22 21:41 PM Abdomen/Pelvis CT 12/15/22 19:35 Exam(s): CT ABDOMEN + PELVIS With Contrast IV Amt: 119ml iso 350 EXAM: CT Abdomen and Pelvis With Intravenous Contrast CLINICAL HISTORY: Reason for exam: fall. TECHNIQUE: Axial computed tomography images of the abdomen and pelvis with intravenous contrast. CTDI is 28.1 mGy and DLP is 1645.53 mGy-cm. Automated exposure control was utilized for the study. A dose lowering technique was utilized adhering to the principles of ALARA. CONTRAST: Patient received 119ml iso 350 of IV contrast COMPARISON: CT abdomen and pelvis 04/11/22 FINDINGS: There is a small nondisplaced acute fracture through a left-sided L2 inferior endplate osteophyte, better visualized on concurrently performed CT lumbar spine. There is a stable chronic L1 compression fracture. Regional skeleton appears otherwise intact. Lung bases are clear. Gallbladder surgically absent. There is hepatic steatosis. Spleen, pancreas, adrenal glands, and kidneys are unremarkable. There is atherosclerosis of the abdominal aorta without aneurysm. There is no adenopathy, free fluid, or free air. Urinary bladder and prostate are normal. Appendix is normal. There is no bowel obstruction or inflammation. IMPRESSION: 1. Small acute nondisplaced fracture through a left-sided L2 inferior endplate osteophyte. 2. Otherwise, no acute or significant findings. Electronically signed by: Sherman Amaya M.D. 12/15/22 21:44 PM ECG Data Attestation: I personally reviewed and interpreted this ECG as follows: Rate (beats per minute): 86 Rhythm: + normal sinus ECG Intervals/blocks: + Normal QRS, + Normal NV and + Normal QT-c ECG ST segments: + Normal ST segments MDM Narrative Cardiac monitoring: An order was placed for continuous cardiac monitoring. The monitor shows a rate of 90 with sinus rhythm interpreted by nh Labs show white blood cell count 11.8 hemoglobin 10.6 coagulation studies within normal limits VBG within normal limits. Lactic acid was minimally elevated at 2.1. Is not thought that the patient is septic as the patient's blood pressure has been stable. Chest x-ray shows possible scarring, could be pneumonitis. Given the patient's low-grade temperature of 37.7 and elevated lactic acid, will empirically treat with Rocephin and azithromycin. Imaging does show a small acute nondisplaced fracture through the L2 left-sided inferior endplate osteophyte. Patient will be admitted to [facility] hospitalist team. Impression & Plan Closed L2 vertebral fracture, Pulmonary edema, Pneumonitis, Lactic acidemia Discharge Plan Visit Data Chief Complaint: Back Injury/Pain ED Provider: Aaron Rey Discharge Problem: Closed L2 vertebral fracture, Pulmonary edema, Pneumonitis, Lactic acidemia Patient Disposition: Being Evaluated by Hospitalist Forms Stand Alone Forms: My [facility] Prescriptions Prescriptions: No Action aspirin 81 mg Tablet,Chewable 81 mg PO QAM Rx Instructions: 8 am sennosides [senna] 8.6 mg Tablet 8.6 mg PO BID (DME) lancets [Lancets,Thin] Misc See Rx Instructions .ROUTE .MEDSUPPLY Qty: 50 2RF Rx Instructions: As directed bupropion HCl 300 mg tablet extended release 24 hr 300 mg PO QAM buspirone 15 mg Tablet 15 mg PO BID Rx Instructions: 8am and 8 pm aripiprazole [Abilify] 15 mg Tablet 15 mg PO QAM Rx Instructions: 8 am quetiapine [Seroquel] 50 mg Tablet 50 mg PO TID Rx Instructions: 8am,2pm,8pm doxepin 10 mg Capsule 10 mg PO HS omeprazole 40 mg Capsule,Delayed Release(Dr/Ec) 40 mg PO DAILYBB Rx Instructions: 7am multivitamin [Daily-Ezekiel] Tablet 1 tab PO QAM venlafaxine 37.5 mg capsule,extended release 24hr 37.5 mg PO QAM venlafaxine 75 mg capsule,extended release 24hr 75 mg PO QAM risperidone 0.25 mg tablet 0.25 mg PO QAM divalproex 500 mg tablet extended release 24 hr 1,500 mg PO HS amlodipine 10 mg Tablet 10 mg PO QAM Rx Instructions: 8 am lisinopril 10 mg Tablet 10 mg PO QAM furosemide 40 mg tablet 40 mg PO QAM Patient Comments: TAKES 40MG DAILY AND 20MG QPM carvedilol 25 mg tablet 25 mg PO BID acetaminophen 325 mg Tablet 1,300 mg PO Q6H PRN (Reason: Pain) Rx Instructions: 2 tablets glimepiride 2 mg tablet 2 mg PO QAM levothyroxine 100 mcg tablet 100 mcg PO QAM ammonium lactate 12 % Cream 1 applic TOPICAL DAILY PRN (Reason: other) bisacodyl [Biscolax] 5 mg Tablet,Delayed Release (Dr/Ec) 5 mg PO DAILY PRN (Reason: Constipation) white petrolatum [Petroleum Jelly] Gel 1 applic TOPICAL DAILY PRN (Reason: Dry Skin) Rx Instructions: apply to nostrils diclofenac sodium [Voltaren] 1 % Gel 1 ea TOPICAL DAILY PRN (Reason: Other) Rx Instructions: as directed guaifenesin [Mucinex] 600 mg Tablet Extended Release 12hr 600 mg PO BID PRN (Reason: Congestion) Jardiance 25 mg tablet 25 mg PO QAM calcium carbonate 750 mg PO DIRECTED Rx Instructions: 2 to 4 tabs as symptoms occur or as directed by doctor Referrals Referrals: Tim Swenson, [Primary Care Provider] -
--- NOTE | 2022-12-16 01:20 | History & Physical Report ---
Date of Service December 16, 2022 Assessment & Plan (1) Back pain: Plan: 67-year-old male past med significant forintellectual disability, HLD, T2DM, CA, chronic ischemic heart disease, ASCVD, HTN, heart failure, reflux esophagitis, dental caries, GERD, BPH, arthritis of hip, spina bifida, depression with anxiety [facility] and also spiking fevers and found to have L2 fracture and also possible pneumonitis. Back pain Rollover from the bed Patient is wheelchair-bound Lumbar spine CT shows L2 small acute nondisplaced fracture Pain control Orthospine consult in a.m. Fever Possible pneumonitis Lactic acid 2.1 Getting fluids We will follow repeat lactic acid On Rocephin and doxycycline we will monitor. Diabetes Hold home p.o. medications Insulin sliding scale Will monitor pressure and HbA1c levels Hypertension On amlodipine, Coreg, lisinopril and Lasix We will monitor. Hypothyroidism On Synthyroid Depression with anxiety On venlafaxine, buspirone, Abilify, and Seroquel. Mild transaminitis Seems chronic Will monitor History of CA Aspirin and beta-[place] History of systolic CHF EF 45% echo done in 03/2019 EF 50 to 55% on echo done on 04/2022 On Lasix and Coreg We will monitor for volume overload DVT prophylaxis Lovenox Disposition medical floor Full code as per discussion with the caregiver History of Present Illness Chief Complaint: Fall back pain and fever Primary Care Provider: Tim Swenson DO 67-year-old male past med significant forintellectual disability, HLD, T2DM, CA, chronic ischemic heart disease, ASCVD, HTN, heart failure, reflux esophagitis, dental caries, GERD, BPH, arthritis of hip, spina bifida, depression with anxiety [facility]. Patient seem to be rolled over from the bed. Came to the ER early in the morning CT head and CT cervical spine was okay and was discharged back to [facility]. But was having lot of back pain so was brought to ER again. He was also having mild temperature. Chest x-ray shows bibasilar opacities possible atelectasis versus scaring. Lumbar spine CT shows small acute nondisplaced fracture left-sided L2 with inferior endplate. Caregiver is at bedside. Patient denies any headache or neck pain at this time no chest pain or abdominal pain. No nausea vomiting. No diarrhea. Patient is in the diapers. He is wheelchair-bound. Currently hemodynamically stable. Past medical history as mentioned above Past surgical history colonoscopy, EGD, EGD with endoscopic ultrasound, bilateral removal of erupted tooth. Social history currently living at [facility]. No smoking. No alcohol. No drug use. Family history mother had diabetes and heart disorder. Father has heart disorder. Maternal grandfather had stroke. Maternal grandmother had stroke. Allergies Allergy/AdvReac Type Severity Reaction Status Date / Time terbinafine Allergy Mild RASH ON Verified 07/23/22 08:56 ARM? Home Medications Medication Instructions Recorded Confirmed Type sennosides 8.6 mg tablet (senna) 8.6 mg PO BID 09/21/18 12/15/22 History lancets (Lancets,Thin) #50 ea 11/07/19 04/11/22 Rx bupropion HCl 300 mg 24 hr tablet, 300 mg PO QAM 05/05/20 12/15/22 History extended release aspirin 81 mg chewable tablet 81 mg PO QAM 06/09/20 12/15/22 History aripiprazole 15 mg tablet (Abilify) 15 mg PO QAM 07/31/20 12/15/22 History buspirone 15 mg tablet 15 mg PO BID 07/31/20 12/15/22 History quetiapine 50 mg tablet (Seroquel) 50 mg PO TID 07/31/20 12/15/22 History doxepin 10 mg capsule 10 mg PO HS 02/07/21 12/15/22 History omeprazole 40 mg capsule,delayed 40 mg PO DAILYBB 05/21/21 12/15/22 History release divalproex 500 mg tablet,extended 1,500 mg PO HS 04/11/22 12/15/22 History release 24 hr multivitamin (Daily-Ezekiel tablet) 1 tab PO QAM 04/11/22 12/15/22 History risperidone 0.25 mg tablet 0.25 mg PO QAM 04/11/22 12/15/22 History venlafaxine 37.5 mg 37.5 mg PO QAM 04/11/22 12/15/22 History capsule,extended release 24 hr venlafaxine 75 mg capsule,extended 75 mg PO QAM 04/11/22 12/15/22 History release 24 hr amlodipine 10 mg tablet 10 mg PO QAM 07/16/22 12/15/22 History furosemide 40 mg tablet 40 mg PO QAM 07/16/22 12/15/22 History lisinopril 10 mg tablet 10 mg PO QAM 07/16/22 12/15/22 History acetaminophen 325 mg tablet 1,300 mg PO Q6H PRN Pain 12/15/22 12/15/22 History ammonium lactate 12 % topical cream 1 applic topical DAILY PRN other 12/15/22 12/15/22 History bisacodyl 5 mg tablet,delayed 5 mg PO DAILY PRN Constipation 12/15/22 12/15/22 History release calcium carbonate 750 mg PO DIRECTED 12/15/22 12/15/22 History carvedilol 25 mg tablet 25 mg PO BID 12/15/22 12/15/22 History diclofenac sodium 1 % topical gel 1 ea topical DAILY PRN Other 12/15/22 12/15/22 History empagliflozin 25 mg tablet 25 mg PO QAM 12/15/22 12/15/22 History (Jardiance) glimepiride 2 mg tablet 2 mg PO QAM 12/15/22 12/15/22 History guaifenesin 600 mg tablet, 600 mg PO BID PRN Congestion 12/15/22 12/15/22 History extended release 12 hr (Mucinex) levothyroxine 100 mcg tablet 100 mcg PO QAM 12/15/22 12/15/22 History white petrolatum (Petroleum Jelly 1 applic topical DAILY PRN Dry Skin 12/15/22 12/15/22 History topical) Past Med/Surg History Medical History Anemia Arthritis Cataract Cerebral palsy Chronic ischemic heart disease Combative behavior Coronary artery disease Diabetes mellitus, type 2 Dysphagia Fall Fall risk GERD (gastroesophageal reflux disease) Hyperlipidemia Hypertension Hypothyroidism Impulse control disorder Intermittent explosive disorder [place] Moderate intellectual disabilities sister/POA -ASHLEY IRENE [phone]-[employer] 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 SIGNS CONSENTS MRSA (methicillin resistant Staphylococcus aureus) carrier Myocardial infarction Remote hx per records > medically managed Obesity Severe anxiety Spina bifida Thrombocytopenia Chronic thrombocytopenia, baseline platelets low 100s per chart review Vocal cord paralysis, unilateral complete Surgical History H/O tooth extraction History of bronchoscopy Flexible bronchoscopy with BAL (02/04/18): Grade view 1, Elective glidescope #4, ETT 8.5 at [facility] (done for aspiration PNA) History of colonoscopy EGD/colonoscopy (12/07/19): MAC sedation at [facility] History of esophagogastroduodenoscopy (EGD) History of laparoscopic cholecystectomy Laparoscopic cholecystectomy [address] Wolff Family History Other No significant family history Social History Smoking Status: Never smoker Second Hand Exposure: No; Do You Dip or Chew Tobacco: No; Hx Alcohol Use: No Hx Substance Use: No Preferred Language: Polish Communication Ability: Impaired Communication Ability Comment: PT IS INTELLECTUALLY IMPAIRED Hand Spring Former Required: No Beliefs That Will Affect Care: None marital status: Single Current Living Situation: Boarding Home Current Living Situation Comment: [employer] current occupational status: disabled Feels Safe at Home: Yes Assistive Devices: Walker and Wheelchair Review of Systems Review of Systems: Unobtainable due to cognitive status Physical Exam Physical Exam: General-not in distress Head- atraumatic Eyes- PERRL,. ENT- oropharynx clear Neck- supple, no JVD, no adenopathy, carotids +2/2, no bruits appreciated Lungs- clear to auscultation no wheezing or crackles. Heart- regular rhythm; no murmur, no gallop. Abdomen- normal bowel sounds, soft, nontender, no distension. Extremities- no pretibial edema, no erythema. Neuro- alert, oriented PERRL, no facial palsy; no dysarthria;obeys commands moves extremities. Skin- warm & dry Results & Data Results & Data Vital Signs (Past 12 Hours) Vital Signs Temp Pulse Pulse Resp BP BP Pulse Ox 12/15/22 23:00 84 12/15/22 22:30 85 18 95 12/15/22 22:01 83 19 142/77 H 97 12/15/22 21:25 91 H 21 169/87 H 96 12/15/22 21:26 91 H 20 169/87 H 96 12/15/22 21:25 96 12/15/22 20:30 21 95 12/15/22 20:00 92 H 17 96 12/15/22 19:34 84 12/15/22 18:56 84 22 161/79 H 95 12/15/22 19:04 37.7 C H O2 Del Method 12/15/22 23:00 12/15/22 22:30 Room Air 12/15/22 22:01 Room Air 12/15/22 21:25 Room Air 12/15/22 21:26 Room Air 12/15/22 21:25 Room Air 12/15/22 20:30 Room Air 12/15/22 20:00 Room Air 12/15/22 19:34 12/15/22 18:56 Room Air 12/15/22 19:04 Diagnostic Findings Laboratory Results WBC 11.82 K/ul (4.8-10.8) H 12/15/22 20:59 RBC 3.63 M/uL (4.70-6.10) L 12/15/22 20:59 Hgb 10.6 g/dl (14.0-18.0) L 12/15/22 20:59 POC Hgb 12.2 g/dl (14.0-18.0) L 12/15/22 20:17 Hct 33.0 % (42.0-52.0) L 12/15/22 20:59 POC Hct 36 % (42-52) L 12/15/22 20:17 MCV 90.9 fL (80.0-100.0) 12/15/22 20:59 MCH 29.2 pg (25.0-34.0) 12/15/22 20:59 MCHC 32.1 g/dL (32.0-36.0) 12/15/22 20:59 RDW Std Deviation 55.4 fL (36.4-46.3) H 12/15/22 20:59 RDW Coeff of Josiah 16.7 % (11.5-14.5) H 12/15/22 20:59 Plt Count 119 K/uL (130-400) L 12/15/22 20:59 MPV 10.9 fL (9.4-12.4) 12/15/22 20:59 Immature Gran % (Auto) 0.5 % 12/15/22 20:59 Neut % (Auto) 67.3 % 12/15/22 20:59 Lymph % (Auto) 18.5 % 12/15/22 20:59 [place] % (Auto) 13.0 % 12/15/22 20:59 Eos % (Auto) 0.4 % 12/15/22 20:59 Baso % (Auto) 0.3 % 12/15/22 20:59 Neut # (Auto) 7.95 K/uL (1.40-6.50) H 12/15/22 20:59 Lymph # (Auto) 2.19 K/uL (1.20-3.40) 12/15/22 20:59 [place] # (Auto) 1.54 K/uL (0.11-0.59) H 12/15/22 20:59 Eos # (Auto) 0.05 K/uL (0.00-0.50) 12/15/22 20:59 Baso # (Auto) 0.03 K/uL (0.00-0.20) 12/15/22 20:59 Immature Gran # (Auto) 0.06 K/uL (0.01-0.20) 12/15/22 20:59 Absolute Nucleated RBC 0.02 K/uL (0.00-0.12) 12/15/22 20:59 Nucleated RBC % (auto) 0.2 % 12/15/22 20:59 Neutrophils % (Manual) Cancelled 12/15/22 20:12 Band Neutrophils % Cancelled 12/15/22 20:12 Lymphocytes % (Manual) Cancelled 12/15/22 20:12 Prolymphocyte % Cancelled 12/15/22 20:12 Reactive Lymphs % (Man) Cancelled 12/15/22 20:12 Monocytes % (Manual) Cancelled 12/15/22 20:12 Eosinophils % (Manual) Cancelled 12/15/22 20:12 Basophils % (Manual) Cancelled 12/15/22 20:12 Metamyelocytes % (Man) Cancelled 12/15/22 20:12 Myelocytes % (Man) Cancelled 12/15/22 20:12 Promyelocytes % (Man) Cancelled 12/15/22 20:12 Blast Cells % (Manual) Cancelled 12/15/22 20:12 Plasma Cell % (Manual) Cancelled 12/15/22 20:12 Other Cells % Cancelled 12/15/22 20:12 Nucleated RBC % Cancelled 12/15/22 20:12 Neutrophils # (Manual) Cancelled 12/15/22 20:12 Band Neutrophils # Cancelled 12/15/22 20:12 Total Absolute Neuts Cancelled 12/15/22 20:12 Lymphocytes # (Manual) Cancelled 12/15/22 20:12 Prolymphocyte # Cancelled 12/15/22 20:12 Reactive Lymphs # Cancelled 12/15/22 20:12 Total Abs Lymphocytes Cancelled 12/15/22 20:12 Monocytes # (Manual) Cancelled 12/15/22 20:12 Eosinophils # (Manual) Cancelled 12/15/22 20:12 Basophils # (Manual) Cancelled 12/15/22 20:12 Metamyelocytes # (Man) Cancelled 12/15/22 20:12 Myelocytes # (Manual) Cancelled 12/15/22 20:12 Promyelocytes # (Man) Cancelled 12/15/22 20:12 Blast Cells # (Man) Cancelled 12/15/22 20:12 Plasma Cell # (Manual) Cancelled 12/15/22 20:12 Other Cells # Cancelled 12/15/22 20:12 Nucleated RBCs # (Man) Cancelled 12/15/22 20:12 Hypersegmented Neuts Cancelled 12/15/22 20:12 Hyposegmented Neuts Cancelled 12/15/22 20:12 Hypogranular Neuts Cancelled 12/15/22 20:12 Large Granular Lymphs Cancelled 12/15/22 20:12 # Lrg Granular Lymphs Cancelled 12/15/22 20:12 Hairy Cells Cancelled 12/15/22 20:12 Smudge Cells Cancelled 12/15/22 20:12 Toxic Granulation Cancelled 12/15/22 20:12 Toxic Vacuolation Cancelled 12/15/22 20:12 Dohle Bodies Cancelled 12/15/22 20:12 Aretha Rods Cancelled 12/15/22 20:12 Platelet Estimate Cancelled 12/15/22 20:12 Hypogranular Platelets Cancelled 12/15/22 20:12 Giant Platelets Cancelled 12/15/22 20:12 Platelet Satelliting Cancelled 12/15/22 20:12 RBC Morphology Cancelled 12/15/22 20:12 Polychromasia Cancelled 12/15/22 20:12 Hypochromasia Cancelled 12/15/22 20:12 Poikilocytosis Cancelled 12/15/22 20:12 Basophilic Stippling Cancelled 12/15/22 20:12 Anisocytosis Cancelled 12/15/22 20:12 Microcytosis Cancelled 12/15/22 20:12 Macrocytosis Cancelled 12/15/22 20:12 Spherocytes Cancelled 12/15/22 20:12 Pappenheimer Bodies Cancelled 12/15/22 20:12 Sickle Cells Cancelled 12/15/22 20:12 Target Cells Cancelled 12/15/22 20:12 Tear Drop Cells Cancelled 12/15/22 20:12 Ovalocytes Cancelled 12/15/22 20:12 Stomatocytes Cancelled 12/15/22 20:12 Alfredo-Slidell Bodies Cancelled 12/15/22 20:12 Echinocytes Cancelled 12/15/22 20:12 Acanthocytes (Spur) Cancelled 12/15/22 20:12 Rouleaux Cancelled 12/15/22 20:12 RBC Agglutinates Cancelled 12/15/22 20:12 Schistocytes Cancelled 12/15/22 20:12 Sezary Cell Cancelled 12/15/22 20:12 PT 11.2 Seconds (9.0-12.0) 12/15/22 20:12 INR 1.0 (0.9-1.1) 12/15/22 20:12 APTT 20.2 Seconds (21.0-31.0) L 12/15/22 20:12 PTT Ratio 0.7 12/15/22 20:12 VBG pH 7.40 (7.36-7.41) 12/15/22 20:24 VBG pCO2 40 mmHg (38-50) 12/15/22 20:24 VBG pO2 40 mmHg 12/15/22 20:24 VBG HCO3 25 mmol/L 12/15/22 20:24 VBG O2 Saturation < 60.0 % 12/15/22 20:24 VBG Base Excess 0 mEq/L 12/15/22 20:24 POC Sodium 140 mmol/L (135-144) 12/15/22 20:17 Sodium 134 mmol/L (136-145) L 12/15/22 20:12 POC Potassium 4.3 mmol/L (3.3-5.0) 12/15/22 20:17 Potassium 4.2 mmol/L (3.5-5.1) 12/15/22 20:25 POC Chloride 106 mmol/L (101-112) 12/15/22 20:17 Chloride 105 mmol/L (98-107) 12/15/22 20:12 Carbon Dioxide 22 mmol/L (21-32) 12/15/22 20:12 POC Total CO2 22 mmol/L (24-31) L 12/15/22 20:17 Anion Gap 7 (3-11) 12/15/22 20:12 POC Anion Gap 17.0 mmol/L (16-25) 12/15/22 20:17 POC BUN 20 mg/dl (7-18) H 12/15/22 20:17 BUN 20 mg/dl (6-23) 12/15/22 20:12 Creatinine 1.21 mg/dl (0.6-1.4) 12/15/22 20:12 POC Creatinine 1.3 mg/dl (0.6-1.3) 12/15/22 20:17 Est Cr Clr Drug Dosing 80.7 ml/min 12/15/22 20:12 Est GFR ( Amer) 72.4 ml/min 12/15/22 20:12 Est GFR (Non-Af Amer) 62.4 ml/min 12/15/22 20:12 BUN/Creatinine Ratio 16.5 (10-20) 12/15/22 20:12 Glucose 153 mg/dl (70-99(Fasting)) H 12/15/22 20:12 POC Glucose 176 mg/dl (70-99) H 12/15/22 19:10 POC Glucose (other) 158 mg/dl (70-99) H 12/15/22 20:17 Lactate 2.1 mmol/L (0.4-2.0) H* 12/15/22 22:23 Calcium 9.2 mg/dl (8.6-10.3) 12/15/22 20:12 POC Ioniz Calcium [place] 1.14 mmol/l (1.12-1.32) 12/15/22 20:17 Magnesium 2.3 mg/dl (1.7-2.4) 12/15/22 20:12 Total Bilirubin 0.4 mg/dl (0.2-1.0) 12/15/22 20:12 Direct Bilirubin 0.0 mg/dl (0-0.2) 12/15/22 20:25 AST 61 U/L (13-39) H 12/15/22 20:25 ALT 77 U/L (7-52) H 12/15/22 20:12 Alkaline Phosphatase 85 U/L (34-104) 12/15/22 20:12 Total Protein 7.6 gm/dl (6.0-8.3) 12/15/22 20:12 Albumin 3.4 gm/dl (3.4-5.0) 12/15/22 20:12 Procalcitonin 0.13 ng/ml (0-0.5) 12/15/22 20:59 Urine Color Yellow 12/15/22 21:50 Urine Appearance Clear (Clear) 12/15/22 21:50 Urine pH 5.5 (4.5-7.5) 12/15/22 21:50 Ur Specific [place] 1.033 (1.000-1.030) H 12/15/22 21:50 Urine Protein Negative (Negative) 12/15/22 21:50 Urine Glucose (UA) 3+ (Negative) H 12/15/22 21:50 Urine Ketones Negative (Negative) 12/15/22 21:50 Urine Blood Negative (Negative) 12/15/22 21:50 Urine Nitrite Negative (Negative) 12/15/22 21:50 Urine Bilirubin Negative (Negative) 12/15/22 21:50 Urine Urobilinogen Negative (Negative) 12/15/22 21:50 Ur Leukocyte Esterase Negative (Negative) 12/15/22 21:50 SARS-CoV-2 (PCR) NEGATIVE (Negative) 12/15/22 20:47 Influenza Type A (PCR) Negative (Neg) 12/15/22 20:47 Influenza Type B (PCR) Negative (Neg) 12/15/22 20:47 RSV (RT-PCR) Negative (Neg) 12/15/22 20:47 SARS-CoV-2, RNA, NAAT NEGATIVE (NEGATIVE) 12/15/22 19:11 Blood Parasites ID Cancelled 12/15/22 20:12 Impressions Chest X-Ray 12/15/22 19:34 SINGLE VIEW CHEST CLINICAL HISTORY: Sepsis. FINDINGS: An AP, portable, upright chest radiograph is compared to chest x-ray and chest CT dated 05/27/2022. The heart is enlarged. There is pulmonary vascular congestion. Bibasilar opacities likely represent scarring/atelectasis. No large pleural effusion or pneumothorax is seen. The skeletal structures are osteopenic. There are chronic/healed left-sided rib fractures as well as chronic posttraumatic deformity of the left clavicle. Calcific tendinopathy is noted in the left shoulder. IMPRESSION: 1. Cardiomegaly with pulmonary vascular congestion. 2. Bibasilar opacities likely represent scarring/atelectasis. Correlate clinically. ACT 112: Negative or not required by law. Electronically signed by: Jayson Dimas M.D. 12/15/2022 10:[address] 12/15/22 19:34 Exam(s): CT L SPINE EXAM: CT Lumbar Spine Without Intravenous Contrast CLINICAL HISTORY: Reason for exam: fall. TECHNIQUE: Axial computed tomography images of the lumbar spine without intravenous contrast. CTDI is 28.1 mGy and DLP is 1645.53 mGy-cm. Automated exposure control was utilized for the study. A dose lowering technique was utilized adhering to the principles of ALARA. COMPARISON: CT abdomen and pelvis 04/11/22 FINDINGS: Chronic compression fracture of L1 is unchanged from 04/11/22. There is an acute nondisplaced fracture through the left sided L2 inferior endplate osteophyte (series 401, image 31). No other fractures are visualized. Vertebral body alignment is maintained. There is mild disc degeneration at L2-L3. There is mild multilevel facet degeneration. Spinal canal appears congenitally small, with probable superimposed mild stenosis at the L2-L3 level. MRI would be more sensitive. There is multilevel bilateral foraminal narrowing, left greater than right, greatest at the L2-L3 level. Sacroiliac joints are normally aligned. IMPRESSION: 1. Small acute nondisplaced fracture through the left sided L2 inferior endplate osteophyte. 2. Stable chronic compression fracture of L1. Electronically signed by: Sherman Amaya M.D. 12/15/22 21:41 PM Abdomen/Pelvis CT 12/15/22 19:35 Exam(s): CT ABDOMEN + PELVIS With Contrast IV Amt: 119ml iso 350 EXAM: CT Abdomen and Pelvis With Intravenous Contrast CLINICAL HISTORY: Reason for exam: fall. TECHNIQUE: Axial computed tomography images of the abdomen and pelvis with intravenous contrast. CTDI is 28.1 mGy and DLP is 1645.53 mGy-cm. Automated exposure control was utilized for the study. A dose lowering technique was utilized adhering to the principles of ALARA. CONTRAST: Patient received 119ml iso 350 of IV contrast COMPARISON: CT abdomen and pelvis 04/11/22 FINDINGS: There is a small nondisplaced acute fracture through a left-sided L2 inferior endplate osteophyte, better visualized on concurrently performed CT lumbar spine. There is a stable chronic L1 compression fracture. Regional skeleton appears otherwise intact. Lung bases are clear. Gallbladder surgically absent. There is hepatic steatosis. Spleen, pancreas, adrenal glands, and kidneys are unremarkable. There is atherosclerosis of the abdominal aorta without aneurysm. There is no adenopathy, free fluid, or free air. Urinary bladder and prostate are normal. Appendix is normal. There is no bowel obstruction or inflammation. IMPRESSION: 1. Small acute nondisplaced fracture through a left-sided L2 inferior endplate osteophyte. 2. Otherwise, no acute or significant findings. Electronically signed by: Sherman Amaya M.D. 12/15/22 21:44 PM ECG Additional Comments: ECG normal sinus rhythm at rate of 86. No acute ST seen Code Status & VTE Plan VTE Prophylaxis Plan VTE Prophylaxis will be ordered: Yes
[2022-12-16] MEDS ORDERED: AMMONIUM LACTATE 12% LOTION 225 GM BTL EXT PRN (02:08)
[2022-12-16] MEDS ORDERED: bisacodyL 5 MG TABEC PO PRN (02:08)
[2022-12-16] MEDS ORDERED: SODIUM CHLORIDE 0.9% 500 ML IV SCH (02:08)
[2022-12-16] MEDS ORDERED: guaiFENesin 600 MG TABCR PO PRN (02:08)
[2022-12-16] MEDS ORDERED: POLYETHYLENE (MIRALAX) 17 GM PACK PO PRN (02:08)
[2022-12-16] MEDS ORDERED: DICLOFENAC SOD 1% GEL 100 GM TUBE EXT PRN (02:08)
[2022-12-16] MEDS: QUEtiapine FUMARATE 25 MG TABLET PO SCH ×4 (03:07→20:15)
[2022-12-16] MEDS: LEVOTHYROXINE SODIUM 100 MCG TABLET PO SCH (06:07)
[2022-12-16] MEDS: PANTOprazole 40 MG TAB PO SCH (06:07)
[2022-12-16] MEDS: ENOXAPARIN INJ 40 MG/0.4 ML SYR SQ SCH (06:07)
[2022-12-16] MEDS: amLODIPine BESYLATE 5 MG TAB PO SCH (07:30)
[2022-12-16] MEDS: risperiDONE 0.5 MG TABLET PO SCH (07:31)
[2022-12-16] MEDS: MULTIVITAMIN TAB PO SCH (07:31)
[2022-12-16] MEDS: busPIRone 15 MG TAB PO SCH ×2 (07:31→20:15)
[2022-12-16] MEDS: lisinopril 10 MG TAB PO SCH (07:31)
[2022-12-16] MEDS: ARIPiprazole 15 MG TAB PO SCH (07:32)
[2022-12-16] MEDS: carvediloL 25 MG TAB PO SCH ×2 (07:32→20:15)
[2022-12-16] MEDS: buPROPion XL 300 MG TABCR PO SCH (07:32)
[2022-12-16] MEDS: VENLAFAXINE HCL XR 37.5 MG CAPXR PO SCH (07:32)
[2022-12-16] MEDS: SENNA 8.6 MG TAB PO SCH ×2 (07:32→20:14)
[2022-12-16] MEDS: FUROSEMIDE 40 MG TAB PO SCH (07:32)
[2022-12-16] MEDS: ASPIRIN 81 MG CHEW PO SCH (07:32)
[2022-12-16] MEDS: VENLAFAXINE HCL XR 75 MG CAPXR PO SCH (07:32)
[2022-12-16] MEDS: DOXYCYCLINE HYCLATE 100 MG CAP PO SCH ×2 (07:33→20:14)
[2022-12-16] MEDS ORDERED: DEXTROSE 50% 50 ML SYRINGE IV PRN (08:12)
[2022-12-16] MEDS ORDERED: GLUCOSE 10 TAB/TUBE PO PRN (08:12)
[2022-12-16] MEDS ORDERED: GLUCOSE 40% GEL 15 GM TUBE PO PRN (08:12)
[2022-12-16] MEDS ORDERED: CARBOHYDRATES FOR HYPOGLYCEMIA PO PRN (08:12)
[2022-12-16] MEDS ORDERED: GLUCAGON FOR INJ 1 MG VIAL SQ PRN (08:12)
[2022-12-16 08:40] LABS: Basophils # (auto) 0.03 K/uL (0.00-0.20); Basophils % (auto) 0.3 %; Eosinophils # (auto) 0.05 K/uL (0.00-0.50); Eosinophils % (auto) 0.5 %; Hematocrit (blood only) 32.6 % (42.0-52.0); Hemoglobin 10.3 g/dl (14.0-18.0); Immature Granulocytes % (auto) 0.9 %; Lymphocytes # (auto) 2.19 K/uL (1.20-3.40); Lymphocytes % (auto) 20.6 %; Mean Corpuscular Hemoglobin 28.8 pg (25.0-34.0); Mean Corpuscular Hgb Conc 31.6 g/dL (32.0-36.0); Mean Corpuscular Volume 91.1 fL (80.0-100.0); Mean Platelet Volume 11.3 fL (9.4-12.4); Monocytes # (auto) 1.34 K/uL (0.11-0.59); Monocytes % (auto) 12.6 %; Neutrophils % (auto) 65.1 %; Platelet Count 110 K/uL (130-400); RDW Coefficient of Variation 16.9 % (11.5-14.5); RDW Standard Deviation 55.8 fL (36.4-46.3); Red Blood Count 3.58 M/uL (4.70-6.10); White Blood Count 10.61 K/ul (4.8-10.8)
[2022-12-16 08:44] LABS: BUN Creatinine Ratio 14.7 (10-20); Calcium 8.5 mg/dl (8.6-10.3); Creatinine Clr Calc Pharmacy 88.1 ml/min; Est GFR (African American) 82.1 ml/min; Est GFR (Non-African American) 70.9 ml/min; Magnesium 2.1 mg/dl (1.7-2.4); Potassium 3.9 mmol/L (3.5-5.1)
--- NOTE | 2022-12-16 10:02 | Consultation ---
Date of Consultation December 16, 2022 Assessment & Plan (1) Closed L2 vertebral fracture: Gabo is 67-year-old gentleman who is a resident of [facility] who presents to the ER with back pain and L2 fracture. Dr. Mckenna has reviewed imaging. At this point time treatment is conservative. Bracing has been ordered. If he ambulates it is asked that he wear his brace with ambulation/activity. Otherwise, wear brace for transfers. No lifting over 5 pounds. Otherwise he is orthopedically stable. We will see him back in the office in a few weeks for follow-up x-rays. History of Present Illness Reason for Consultation: Lumbar compression fracture Attending Physician: Suma Guerra MD History of Present Illness Is a 67-year-old gentleman with intellectual disability who is a resident at [facility] who presented to the emergency room yesterday after he sustained a fall out of bed. In the ER he presented with fever and back pain. He was subsequently admitted. This morning he is very tired. He is easily arousable but very quickly falls asleep again. History is mostly from prior ER and hospitalist note. He does state he has back pain. He has spina bifida and cerebral palsy. I am unsure if he ambulates. Allergies Allergy/AdvReac Type Severity Reaction Status Date / Time terbinafine Allergy Mild RASH ON Verified 07/23/22 08:56 ARM? Home Medications Medication Instructions Recorded Confirmed Type sennosides 8.6 mg tablet (senna) 8.6 mg PO BID 09/21/18 12/15/22 History lancets (Lancets,Thin) #50 ea 11/07/19 04/11/22 Rx bupropion HCl 300 mg 24 hr tablet, 300 mg PO QAM 05/05/20 12/15/22 History extended release aspirin 81 mg chewable tablet 81 mg PO QAM 06/09/20 12/15/22 History aripiprazole 15 mg tablet (Abilify) 15 mg PO QAM 07/31/20 12/15/22 History buspirone 15 mg tablet 15 mg PO BID 07/31/20 12/15/22 History quetiapine 50 mg tablet (Seroquel) 50 mg PO TID 07/31/20 12/15/22 History doxepin 10 mg capsule 10 mg PO HS 02/07/21 12/15/22 History omeprazole 40 mg capsule,delayed 40 mg PO DAILYBB 05/21/21 12/15/22 History release divalproex 500 mg tablet,extended 1,500 mg PO HS 04/11/22 12/15/22 History release 24 hr multivitamin (Daily-Ezekiel tablet) 1 tab PO QAM 04/11/22 12/15/22 History risperidone 0.25 mg tablet 0.25 mg PO QAM 04/11/22 12/15/22 History venlafaxine 37.5 mg 37.5 mg PO QAM 04/11/22 12/15/22 History capsule,extended release 24 hr venlafaxine 75 mg capsule,extended 75 mg PO QAM 04/11/22 12/15/22 History release 24 hr amlodipine 10 mg tablet 10 mg PO QAM 07/16/22 12/15/22 History furosemide 40 mg tablet 40 mg PO QAM 07/16/22 12/15/22 History lisinopril 10 mg tablet 10 mg PO QAM 07/16/22 12/15/22 History acetaminophen 325 mg tablet 1,300 mg PO Q6H PRN Pain 12/15/22 12/15/22 History ammonium lactate 12 % topical cream 1 applic topical DAILY PRN other 12/15/22 12/15/22 History bisacodyl 5 mg tablet,delayed 5 mg PO DAILY PRN Constipation 12/15/22 12/15/22 History release calcium carbonate 750 mg PO DIRECTED 12/15/22 12/15/22 History carvedilol 25 mg tablet 25 mg PO BID 12/15/22 12/15/22 History diclofenac sodium 1 % topical gel 1 ea topical DAILY PRN Other 12/15/22 12/15/22 History empagliflozin 25 mg tablet 25 mg PO QAM 12/15/22 12/15/22 History (Jardiance) glimepiride 2 mg tablet 2 mg PO QAM 12/15/22 12/15/22 History guaifenesin 600 mg tablet, 600 mg PO BID PRN Congestion 12/15/22 12/15/22 History extended release 12 hr (Mucinex) levothyroxine 100 mcg tablet 100 mcg PO QAM 12/15/22 12/15/22 History white petrolatum (Petroleum Jelly 1 applic topical DAILY PRN Dry Skin 12/15/22 12/15/22 History topical) Patient History Medical History Anemia Arthritis Cataract Cerebral palsy Chronic ischemic heart disease Combative behavior Coronary artery disease Diabetes mellitus, type 2 Dysphagia Fall Fall risk GERD (gastroesophageal reflux disease) Hyperlipidemia Hypertension Hypothyroidism Impulse control disorder Intermittent explosive disorder [place] Moderate intellectual disabilities sister/POA -ASHLEY IRENE [phone]-ERIN CRUZ 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 SIGNS CONSENTS MRSA (methicillin resistant Staphylococcus aureus) carrier Myocardial infarction Remote hx per records > medically managed Obesity Severe anxiety Spina bifida Thrombocytopenia Chronic thrombocytopenia, baseline platelets low 100s per chart review Vocal cord paralysis, unilateral complete Surgical History H/O tooth extraction History of bronchoscopy Flexible bronchoscopy with BAL (02/04/18): Grade view 1, Elective glidescope #4, ETT 8.5 at [facility] (done for aspiration PNA) History of colonoscopy EGD/colonoscopy (12/07/19): MAC sedation at [facility] History of esophagogastroduodenoscopy (EGD) History of laparoscopic cholecystectomy Laparoscopic cholecystectomy [address] Wolff Family History Other No significant family history Social History Smoking Status: Never smoker Second Hand Exposure: No; Do You Dip or Chew Tobacco: No; Hx Alcohol Use: No Hx Substance Use: No Preferred Language: Cymro Communication Ability: Impaired Communication Ability Comment: PT IS INTELLECTUALLY IMPAIRED Pricing Strategist Required: No Beliefs That Will Affect Care: None marital status: Single Current Living Situation: Boarding Home Current Living Situation Comment: [facility] current occupational status: disabled Feels Safe at Home: Yes Assistive Devices: Walker and Wheelchair Review of Systems Review of Systems: All systems reviewed & are unremarkable except as noted in HPI & below Physical Exam Physical Exam: Exam is very limited due to him quickly falling asleep after being aroused. exam was not performed due to lethargy Results & Data Vital Signs (Past 12 Hours) Vital Signs Temp Pulse Pulse Pulse Resp BP BP 12/16/22 07:50 12/16/22 05:10 80 141/73 H 12/16/22 02:00 37.0 C 83 20 181/75 H 12/15/22 23:00 84 12/15/22 22:30 85 18 12/15/22 22:01 83 19 142/77 H Pulse Ox O2 Del Method 12/16/22 07:50 Room Air 12/16/22 05:10 12/16/22 02:00 95 Room Air 12/15/22 23:00 12/15/22 22:30 95 Room Air 12/15/22 22:01 97 Room Air Diagnostic Findings [place], [place] [phone] CT Scan Report Patient:GABO RDZ Admit Date:12/15/22 MR#:[id number] Address1:[facility] [address] Acct ID:[id number] Address2: Date:[address] [facility] Zip:[place] [address] Age:67 Location:ED Sex:M Room/Bed: Att Phy: Diagnosis:BACK PAIN Lisa Phy:Tim Swenson, Service Date:12/15/22 Fam Phy: Interpreting Phy:Sherman Amaya MDAdmit Phy: Ordering Phy:Aaron Rey MD cc: ~ Exam(s): CT L SPINE EXAM: CT Lumbar Spine Without Intravenous Contrast CLINICAL HISTORY: Reason for exam: fall. TECHNIQUE: Axial computed tomography images of the lumbar spine without intravenous contrast. CTDI is 28.1 mGy and DLP is 1645.53 mGy-cm. Automated exposure control was utilized for the study. A dose lowering technique was utilized adhering to the principles of ALARA. COMPARISON: CT abdomen and pelvis 04/11/22 FINDINGS: Chronic compression fracture of L1 is unchanged from 04/11/22. There is an acute nondisplaced fracture through the left sided L2 inferior endplate osteophyte (series 401, image 31). No other fractures are visualized. Vertebral body alignment is maintained. There is mild disc degeneration at L2-L3. There is mild multilevel facet degeneration. Spinal canal appears congenitally small, with probable superimposed mild stenosis at the L2-L3 level. MRI would be more sensitive. There is multilevel bilateral foraminal narrowing, left greater than right, greatest at the L2-L3 level. Sacroiliac joints are normally aligned. IMPRESSION: 1. Small acute nondisplaced fracture through the left sided L2 inferior endplate osteophyte. 2. Stable chronic compression fracture of L1. Electronically signed by: Sherman Amaya M.D. 12/15/22 21:41 PM Dictated:12/15/222140 Transcribed: 12/15/222140
[2022-12-16] MEDS: INSULIN ASPART PER UNIT CHARGE SC SCH ×3 (11:57→20:35)
--- NOTE | 2022-12-16 14:00 | Communication Note ---
Date of Service: December 16, 2022 Patient was seen and examined in room 303. Nurse at bedside. [facility] It is reported that he rolled out of bed. Imaging on admission Revealed a small acute nondisplaced fracture to the left sided L2 inferior endplate as well as a chronic stable compression fracture of L1. He was seen and evaluated by orthopedic spine reveal conservative management at this time with LSO bracing. PT/OT and orthotics have been consulted. Patient is to receive bracing this afternoon. At baseline patient is wheelchair-bound and is able to assist in transfers. This was confirmed with patient's sister. Also noted on admission as patient had lactic acidosis which has since resolved. There was also report from [facility] that he had a fever and yesterday he did have a Tmax of 37.7. Blood cultures were obtained. Initial urinalysis negative. Chest x-ray concerning for bibasilar scarring/atelectasis and possible congestion/pneumonitis, procalcitonin 0.13. There is no reported cough. He is receiving 2 g IV Rocephin every 24 hours as well as doxycycline 100 mg twice daily. Discussed case with patient's Sister Gladys. Given recent fall and reported fever feel patient would benefit from continued hospitalization, await initial blood culture result and if negative can likely discharge back to [facility] tomorrow with back brace, orthopedic follow-up and oral antibiotics. Pt with mild transaminitis which has been present in past. We will follow lab. CBC and CMP from today were reviewed and unchanged. Repeat labs in a.m. Case discussed with attending Dr. Guerra. Please see addendum
[2022-12-16] MEDS: DIVALPROEX EXTENDED RELEASE 500 MG TAB PO SCH (20:15)
[2022-12-16] MEDS: DOXEPIN HCL 10 MG CAPSULE PO SCH (20:15)
[2022-12-16] MEDS: ACETAMINOPHEN 325 MG TAB PO PRN (20:15)
[2022-12-16] MEDS: cefTRIAXone SODIUM 2,000 MG in DEXTROSE 5% 50 ML IV SCH (20:16)
[2022-12-17] MEDS: LEVOTHYROXINE SODIUM 100 MCG TABLET PO SCH (06:10)
[2022-12-17] MEDS: ACETAMINOPHEN 325 MG TAB PO PRN (06:10)
[2022-12-17] MEDS: ENOXAPARIN INJ 40 MG/0.4 ML SYR SQ SCH (06:10)
[2022-12-17] MEDS: PANTOprazole 40 MG TAB PO SCH (06:10)
[2022-12-17] MEDS: ASPIRIN 81 MG CHEW PO SCH (07:27)
[2022-12-17] MEDS: VENLAFAXINE HCL XR 75 MG CAPXR PO SCH (07:27)
[2022-12-17] MEDS: FUROSEMIDE 40 MG TAB PO SCH (07:27)
[2022-12-17] MEDS: busPIRone 15 MG TAB PO SCH ×2 (07:28→21:02)
[2022-12-17] MEDS: lisinopril 10 MG TAB PO SCH (07:28)
[2022-12-17] MEDS: buPROPion XL 300 MG TABCR PO SCH (07:28)
[2022-12-17] MEDS: ARIPiprazole 15 MG TAB PO SCH (07:28)
[2022-12-17] MEDS: VENLAFAXINE HCL XR 37.5 MG CAPXR PO SCH (07:28)
[2022-12-17] MEDS: risperiDONE 0.5 MG TABLET PO SCH (07:28)
[2022-12-17] MEDS: DOXYCYCLINE HYCLATE 100 MG CAP PO SCH ×2 (07:28→21:01)
[2022-12-17] MEDS: MULTIVITAMIN TAB PO SCH (07:28)
[2022-12-17] MEDS: QUEtiapine FUMARATE 25 MG TABLET PO SCH ×3 (07:29→21:01)
[2022-12-17] MEDS: amLODIPine BESYLATE 5 MG TAB PO SCH (07:29)
[2022-12-17] MEDS: carvediloL 25 MG TAB PO SCH ×2 (07:29→21:01)
[2022-12-17] MEDS: SENNA 8.6 MG TAB PO SCH ×2 (07:30→21:01)
[2022-12-17] MEDS: INSULIN ASPART PER UNIT CHARGE SC SCH ×4 (07:51→21:20)
[2022-12-17 09:13] LABS: Basophils # (auto) 0.03 K/uL (0.00-0.20); Basophils % (auto) 0.3 %; Eosinophils # (auto) 0.11 K/uL (0.00-0.50); Hematocrit (blood only) 31.6 % (42.0-52.0); Hemoglobin 10.4 g/dl (14.0-18.0); Immature Granulocytes # (auto) 0.09 K/uL (0.01-0.20); Immature Granulocytes % (auto) 0.9 %; Lymphocytes # (auto) 2.32 K/uL (1.20-3.40); Lymphocytes % (auto) 21.9 %; Mean Corpuscular Hemoglobin 29.2 pg (25.0-34.0); Mean Corpuscular Hgb Conc 32.9 g/dL (32.0-36.0); Mean Corpuscular Volume 88.8 fL (80.0-100.0); Mean Platelet Volume 10.9 fL (9.4-12.4); Monocytes # (auto) 1.09 K/uL (0.11-0.59); Monocytes % (auto) 10.3 %; Neutrophils # (auto) 6.93 K/uL (1.40-6.50); Neutrophils % (auto) 65.6 %; Nucleated RBC # (auto) 0.02 K/uL (0.00-0.12); Nucleated RBC % (auto) 0.2 %; Platelet Count 127 K/uL (130-400); RDW Standard Deviation 55.4 fL (36.4-46.3); Red Blood Count 3.56 M/uL (4.70-6.10); White Blood Count 10.57 K/ul (4.8-10.8)
[2022-12-17 09:37] LABS: Albumin Globulin Ratio 0.7 (0.9-2); Albumin Level 3.3 gm/dl (3.4-5.0); BUN Creatinine Ratio 17.2 (10-20); Bilirubin,Total 0.4 mg/dl (0.2-1.0); Calcium 8.7 mg/dl (8.6-10.3); Creatinine Clr Calc Pharmacy 82.8 ml/min; Est GFR (African American) 76.2 ml/min; Est GFR (Non-African American) 65.7 ml/min; Globulin 4.7 gm/dl (2.5-4.0)
--- NOTE | 2022-12-17 10:00 | Hospitalist Progress Note ---
Date of Service December 17, 2022 Assessment & Plan (1) Back pain: Plan: 67-year-old male past med significant forintellectual disability, HLD, T2DM, [place], chronic ischemic heart disease, ASCVD, HTN, heart failure, reflux esophagitis, dental caries, GERD, BPH, arthritis of hip, spina bifida, depression with anxiety [facility] and also spiking fevers and found to have L2 fracture and also possible pneumonitis. Back pain Rollover from the bed Patient is wheelchair-bound Lumbar spine CT shows L2 small acute nondisplaced fracture Pain control Seen and evaled by ortho spine - conservative management -If he ambulates it is asked that he wear his brace with ambulation/activity. Otherwise, wear brace for transfers. No lifting over 5 pounds. Otherwise he is orthopedically stable. He will need repeat xrays in few weeks and follow up with ortho spine Fever Possible pneumonitis Lactic acidosis - resolved Lactic acid 2.1 resolved with IVF On Rocephin and doxycycline Pt spike fever of 38.2 on evening of 12/16 blood culture negative so far, will need another 24hr to r/o bacteremia other than possible respiratory component no other source of infection identified UA negative, CT abd pelvis: negative, COVID/RSV/Flu negative CXR possible bibasilar opacities repeat CBC, BMP in a.m. Diabetes Hold home p.o. medications Insulin sliding scale Will monitor pressure and HbA1c levels Hypertension On amlodipine, Coreg, lisinopril and Lasix BP has been intermittently elevated while hospitalized like situational and no med adjustment needed at this time Hypothyroidism On Synthyroid Depression with anxiety On venlafaxine, buspirone, Abilify, and Seroquel. mood stable Mild transaminitis Seems chronic Will monitor AST 41 and ALT 52 today History of [place] Aspirin and beta-[place] History of systolic CHF EF 45% echo done in 03/2019 EF 50 to 55% on echo done on 04/2022 On Lasix and Coreg chronic, stable, euvolemic DVT prophylaxis Lovenox Disposition: Discussed with patient's Sister Gladys who wishes to limit patient's time hospitalized as much as possible. She is in agreement for additional 24 hours of hospitalization to ensure blood cultures negative and would likely discharged home tomorrow on further antibiotics. Sister states that the longer patient is hospitalized the worse that he typically gets given his underlying intellectual disability and does much better over at [facility]. Encouraged we will d/c as soon as medically able to ensure he does not re admit. Coordinated with CM. FULL CODE Pt was seen and examined in collaboration with Dr. Orourke please see addendum A total of 55 was spent coordinating, documenting, and providing care for this patient excluding time spent in the performance of separately billed services. This included personally viewing all current laboratories and imaging studies, medication reconciliation, outpatient chart review, and discussion with specialists. Admission and Anticipated Discharge Date Admission Date: December 16, 2022 Supervising Physician Co-Signing Physician Notes Attending Addendum: care coordinated with MARILEE Fox please refer to her notes for full details, I agree with her notes patient seen and examined, records reviewed by myself as well diagnoses and plan of care as per MARILEE Orourke MD Subjective Patient was seen and examined in room 303. Follow-up compression fracture and fever. EMR was reviewed. Patient did had a fever at 1900 yesterday at 38.2. He states he did not feel well last evening. He complains of dry cough. Nurse denies patient coughing since hospitalized. He denies chest pain, shortness of breath, nausea or vomiting. Discussed case with patient's nurse. She denies any open wounds or diarrhea. Called patient's Sister Gladys at bedside who also provided further history. She states patient always says, "I do not feel well." She is concerned about him remaining hospitalized but agrees to stay for additional 24 hours to monitor blood culture given fever. Review of Systems Review of Systems: All systems reviewed & are unremarkable except as noted in HPI & below Physical Exam Physical Exam: Constitutional: WD/WN, intellectual disability, vitals as above, NAD, sitting up in bed, pleasant, conversing easily, occasionally shouts Head: Normocephalic, Atraumatic Eyes: PERRL, conjunctivae normal, anicteric sclerae ENMT: external ear and nose normal, oropharynx normal Neck: trachea midline, no thyromegaly normal visual inspection Respiratory: normal respiratory effort, lungs clear to auscultation, no wheeze, rales, rhonchi. Normal insp/exp effort, no accessory muscle use Cardiovascular: RRR, no murmur, no edema Vessels: no JVD or carotid bruit Chest: normal inspection of chest Abdomen: Protuberant abdomen, normal bowel sounds, soft, nontender, no hepatosplenomegaly Musculoskeletal: no cyanosis or clubbing, active range of motion of bilateral upper extremities, decreased range of motion of lower extremities, strength 2 out of 5 bilaterally Skin: no rashes, warm and dry normal turgor Neurologic: PERRL, EOMI, accommodation nl, no face palsy, no dysarthria CN's II-XI intact bilaterally and moves all extremities Psychiatric: A+Ox3, euthymic affect Lymphatic: no cervical or axillary lymphadenopathy : deferred Results & Data Results & Data Vital Signs (Past 12 Hours) Vital Signs Temp Pulse Resp BP Pulse Ox O2 Del Method 12/17/22 08:00 Room Air 12/17/22 07:15 36.8 C 79 18 164/87 H 93 Room Air Laboratory Results Short CBC 12/17/22 Range/Units 08:48 WBC 10.57 (4.8-10.8) K/ul Hgb 10.4 L (14.0-18.0) g/dl Hct 31.6 L (42.0-52.0) % Plt Count 127 L (130-400) K/uL BMP 12/17/22 08:48 Sodium 134 L Potassium 4.0 Chloride 104 Carbon Dioxide 22 BUN 20 Creatinine 1.16 Glucose 141 H Calcium 8.7 Liver Function 12/17/22 Range/Units 08:48 Total Bilirubin 0.4 (0.2-1.0) mg/dl AST 41 H (13-39) U/L ALT 52 (7-52) U/L Alkaline Phosphatase 61 (34-104) U/L Albumin 3.3 L (3.4-5.0) gm/dl Medications Administered Current Inpatient Medications Acetaminophen (Acetaminophen 325 Mg Tab) 650 mg PO Q4H PRN PRN Reason: pain/fever Stop: 01/15/23 02:07 Last Admin: 12/17/22 06:10 Dose: 650 mg Amlodipine Besylate (Amlodipine Besylate 5 Mg Tab) 10 mg PO DAILY@0800 [facility] Stop: 01/15/23 07:59 Last Admin: 12/17/22 07:29 Dose: 10 mg Aripiprazole (Aripiprazole 15 Mg Tab) 15 mg PO DAILY@0800 [facility] Stop: 01/15/23 07:59 Last Admin: 12/17/22 07:28 Dose: 15 mg Aspirin (Aspirin 81 Mg Chew) 81 mg PO DAILY@0800 [facility] Stop: 01/15/23 07:59 Last Admin: 12/17/22 07:27 Dose: 81 mg Bisacodyl (Bisacodyl 5 Mg Tabec) 5 mg PO DAILY PRN PRN Reason: Constipation Stop: 01/15/23 02:07 Bupropion HCl (Bupropion Xl 300 Mg Tabcr) 300 mg PO QAM [facility] Stop: 01/15/23 08:59 Last Admin: 12/17/22 07:28 Dose: 300 mg Buspirone HCl (Buspirone 15 Mg Tab) 15 mg PO BID@0800,1999 [facility] Stop: 01/15/23 07:59 Last Admin: 12/17/22 07:28 Dose: 15 mg Carvedilol (Carvedilol 25 Mg Tab) 25 mg PO BID [facility] Stop: 01/15/23 08:59 Last Admin: 12/17/22 07:29 Dose: 25 mg Dextrose (Dextrose 50% 50 Ml Syringe) 25 - 50 ml IV UD PRN; Protocol PRN Reason: Hypoglycemia Protocol Stop: 01/15/23 08:11 Diclofenac Sodium (Diclofenac Sod 1% Gel 100 Gm Tube) 1 gm EXT DAILY PRN; Protocol PRN Reason: pain Stop: 01/15/23 02:07 Divalproex Sodium (Divalproex Extended Release 500 Mg Tab) 1,500 mg PO HS [facility] Stop: 01/15/23 20:59 Last Admin: 12/16/22 20:15 Dose: 1,500 mg Doxepin HCl (Doxepin Hcl 10 Mg Capsule) 10 mg PO HS [facility] Stop: 01/15/23 20:59 Last Admin: 12/16/22 20:15 Dose: 10 mg Doxycycline Hyclate (Doxycycline Hyclate 100 Mg Cap) 100 mg PO BID [facility] Stop: 12/23/22 08:59 Last Admin: 12/17/22 07:28 Dose: 100 mg Enoxaparin Sodium (Enoxaparin Inj 40 Mg/0.4 Ml Syr) 40 mg SQ Q24H [facility] Stop: 01/15/23 05:59 Last Admin: 12/17/22 06:10 Dose: 40 mg Furosemide (Furosemide 40 Mg Tab) 40 mg PO QAM [facility] Stop: 01/15/23 08:59 Last Admin: 12/17/22 07:27 Dose: 40 mg Glucagon (Glucagon For Inj 1 Mg Vial) 1 mg SQ UD PRN; Protocol PRN Reason: Hypoglycemia Protocol Stop: 01/15/23 08:11 Glucose (Glucose 10 Tab/Tube) 4 - 8 tab PO UD PRN; Protocol PRN Reason: Hypoglycemia Treatment Stop: 01/15/23 08:11 Glucose (Glucose 40% Gel 15 Gm Tube) 15 - 30 gm PO UD PRN; Protocol PRN Reason: Hypoglycemia Protocol Stop: 01/15/23 08:11 Guaifenesin (Guaifenesin 600 Mg Tabcr) 600 mg PO BID PRN PRN Reason: Congestion Stop: 01/15/23 02:07 Ceftriaxone Sodium 2,000 mg/ (Dextrose) 70 mls @ 100 mls/hr IV Q24H [facility]; Protocol Stop: 12/23/22 20:59 Last Infusion: 12/16/22 20:59 Dose: Infused Insulin Aspart (Insulin Aspart Per Unit Charge) 0 units SC ACHS [facility] Stop: 01/15/23 11:29 Last Admin: 12/17/22 07:51 Dose: Not Given Lactic Acid (Ammonium Lactate 12% Lotion 225 Gm Btl) 1 gm EXT DAILY PRN PRN Reason: dry skin Stop: 01/15/23 02:07 Levothyroxine Sodium (Levothyroxine Sodium 100 Mcg Tablet) 100 mcg PO DAILYBB [facility] Stop: 01/15/23 06:29 Last Admin: 12/17/22 06:10 Dose: 100 mcg Lisinopril (Lisinopril 10 Mg Tab) 10 mg PO QAM [facility] Stop: 01/15/23 08:59 Last Admin: 12/17/22 07:28 Dose: 10 mg Miscellaneous (Carbohydrates For Hypoglycemia ) 15 - 30 gm PO UD PRN PRN Reason: Hypoglycemia Protocol Stop: 01/15/23 08:11 Multivitamins (Multivitamin Tab) 1 tab PO QAM [facility] Stop: 01/15/23 08:59 Last Admin: 12/17/22 07:28 Dose: 1 tab Pantoprazole Sodium (Pantoprazole 40 Mg Tab) 40 mg PO DAILY@0700 [facility] Stop: 01/15/23 06:59 Last Admin: 12/17/22 06:10 Dose: 40 mg Polyethylene Glycol (Polyethylene (Miralax) 17 Gm Pack) 17 gm PO DAILY PRN PRN Reason: Constipation Stop: 01/15/23 02:07 Quetiapine Fumarate (Quetiapine Fumarate 25 Mg Tablet) 50 mg PO TID@0800,1400,2000 [facility] Stop: 01/15/23 02:07 Last Admin: 12/17/22 07:29 Dose: 50 mg Risperidone (Risperidone 0.5 Mg Tablet) 0.25 mg PO QAM [facility] Stop: 01/15/23 08:59 Last Admin: 12/17/22 07:28 Dose: 0.25 mg Sennosides (Senna 8.6 Mg Tab) 8.6 mg PO BID [facility] Stop: 01/15/23 08:59 Last Admin: 12/17/22 07:30 Dose: 8.6 mg Venlafaxine HCl (Venlafaxine Hcl Xr 37.5 Mg Capxr) 37.5 mg PO QAM [facility] Stop: 01/15/23 08:59 Last Admin: 12/17/22 07:28 Dose: 37.5 mg Venlafaxine HCl (Venlafaxine Hcl Xr 75 Mg Capxr) 75 mg PO QAM [facility] Stop: 01/15/23 08:59 Last Admin: 12/17/22 07:27 Dose: 75 mg
--- NOTE | 2022-12-17 13:31 | Electrocardiogram Report ---
Test Reason : Blood Pressure : / mmHG Vent. Rate : 086 BPM Atrial Rate : 086 BPM P-R Int : 178 ms QRS Dur : 092 ms QT Int : 368 ms P-R-T Axes : 069 039 043 degrees QTc Int : 440 ms Normal sinus rhythm Possible Inferior infarct , age undetermined Anteroseptal infarct (cited on or before 27-MAY-2022) Abnormal ECG Confirmed by Herbert Randolph ([id number]) on 12/17/2022 1:30:58 PM Referred By: REFERRED SELF Confirmed By:Trino Randolph
[2022-12-17] MEDS: DIVALPROEX EXTENDED RELEASE 500 MG TAB PO SCH (21:00)
[2022-12-17] MEDS: DOXEPIN HCL 10 MG CAPSULE PO SCH (21:02)
[2022-12-17] MEDS: cefTRIAXone SODIUM 2,000 MG in DEXTROSE 5% 50 ML IV SCH (21:19)
[2022-12-17] MEDS ORDERED: OLANZapine 10 MG/2.1 ML SDV IM PRN (23:22)
[2022-12-18] MEDS: LEVOTHYROXINE SODIUM 100 MCG TABLET PO SCH (05:01)
[2022-12-18] MEDS: ENOXAPARIN INJ 40 MG/0.4 ML SYR SQ SCH (05:01)
[2022-12-18] MEDS: busPIRone 15 MG TAB PO SCH ×2 (07:48→20:37)
[2022-12-18] MEDS: DOXYCYCLINE HYCLATE 100 MG CAP PO SCH ×2 (07:48→20:41)
[2022-12-18] MEDS: buPROPion XL 300 MG TABCR PO SCH (07:48)
[2022-12-18] MEDS: SENNA 8.6 MG TAB PO SCH ×2 (07:49→20:42)
[2022-12-18] MEDS: lisinopril 10 MG TAB PO SCH (07:51)
[2022-12-18] MEDS: risperiDONE 0.5 MG TABLET PO SCH (07:51)
[2022-12-18] MEDS: PANTOprazole 40 MG TAB PO SCH (07:52)
[2022-12-18] MEDS: FUROSEMIDE 40 MG TAB PO SCH (07:52)
[2022-12-18] MEDS: ASPIRIN 81 MG CHEW PO SCH (07:52)
[2022-12-18] MEDS: VENLAFAXINE HCL XR 75 MG CAPXR PO SCH (07:52)
[2022-12-18] MEDS: VENLAFAXINE HCL XR 37.5 MG CAPXR PO SCH (07:52)
[2022-12-18] MEDS: amLODIPine BESYLATE 5 MG TAB PO SCH (07:52)
[2022-12-18] MEDS: QUEtiapine FUMARATE 25 MG TABLET PO SCH ×3 (07:52→20:38)
[2022-12-18] MEDS: ARIPiprazole 15 MG TAB PO SCH (07:52)
[2022-12-18] MEDS: MULTIVITAMIN TAB PO SCH (07:52)
[2022-12-18] MEDS: carvediloL 25 MG TAB PO SCH ×2 (07:53→20:39)
[2022-12-18] MEDS: INSULIN ASPART PER UNIT CHARGE SC SCH ×4 (08:43→20:41)
[2022-12-18 13:37] LABS: Basophils # (auto) 0.06 K/uL (0.00-0.20); Basophils % (auto) 0.4 %; Eosinophils # (auto) 0.16 K/uL (0.00-0.50); Eosinophils % (auto) 1.1 %; Hematocrit (blood only) 35.1 % (42.0-52.0); Hemoglobin 11.2 g/dl (14.0-18.0); Immature Granulocytes # (auto) 0.19 K/uL (0.01-0.20); Immature Granulocytes % (auto) 1.3 %; Lymphocytes # (auto) 2.72 K/uL (1.20-3.40); Mean Corpuscular Hemoglobin 28.9 pg (25.0-34.0); Mean Corpuscular Hgb Conc 31.9 g/dL (32.0-36.0); Mean Corpuscular Volume 90.7 fL (80.0-100.0); Mean Platelet Volume 10.5 fL (9.4-12.4); Monocytes # (auto) 1.36 K/uL (0.11-0.59); Monocytes % (auto) 9.5 %; Neutrophils # (auto) 9.82 K/uL (1.40-6.50); Neutrophils % (auto) 68.7 %; Nucleated RBC # (auto) 0.02 K/uL (0.00-0.12); Nucleated RBC % (auto) 0.1 %; Platelet Count 163 K/uL (130-400); RDW Standard Deviation 55.4 fL (36.4-46.3); Red Blood Count 3.87 M/uL (4.70-6.10); White Blood Count 14.31 K/ul (4.8-10.8)
[2022-12-18 13:56] LABS: Creatinine Clr Calc Pharmacy 76.3 ml/min; Est GFR (African American) 68.9 ml/min; Est GFR (Non-African American) 59.5 ml/min; Potassium 4.4 mmol/L (3.5-5.1)
--- NOTE | 2022-12-18 17:41 | Hospitalist Progress Note ---
Date of Service December 18, 2022 Assessment & Plan (1) Back pain: Plan: 67-year-old male past med significant forintellectual disability, HLD, T2DM, [place], chronic ischemic heart disease, ASCVD, HTN, heart failure, reflux esophagitis, dental caries, GERD, BPH, arthritis of hip, spina bifida, depression with anxiety was brought from [facility] facilitybecause of fall and back pain and also spiking fevers and found to have L2 fracture and also possible pneumonitis. Back pain Rollover from the bed Patient is wheelchair-bound Lumbar spine CT shows L2 small acute nondisplaced fracture Pain control Seen and evaled by ortho spine - conservative management -If he ambulates it is asked that he wear his brace with ambulation/activity. Otherwise, wear brace for transfers. No lifting over 5 pounds. Otherwise he is orthopedically stable. He will need repeat xrays in few weeks and follow up with ortho spine Fever Possible pneumonitis Lactic acidosis - resolved Lactic acid 2.1 resolved with IVF Continue Rocephin and doxycycline (day #3) Pt spike fever of 38.2 on evening of 12/16 Blood culture from 12/15 with preliminary growth of gram positive cocci clusters on 1/2 sites other than possible respiratory component no other source of infection identifi ed UA negative, CT abd pelvis: negative, COVID/RSV/Flu negative CXR possible bibasilar opacities Repeat cultures drawn on 12/18 - follow repeat CBC, BMP in a.m. Diabetes Hold home p.o. medications Insulin sliding scale Will monitor pressure and HbA1c levels Hypertension On amlodipine, Coreg, lisinopril and Lasix BP has been intermittently elevated while hospitalized like situational and no med adjustment needed at this time Hypothyroidism On Synthyroid Depression with anxiety On venlafaxine, buspirone, Abilify, and Seroquel. mood stable Mild transaminitis Seems chronic Will monitor AST 41 and ALT 52 today History of DE Aspirin and beta-kenyatta History of systolic CHF EF 45% echo done in 03/2019 EF 50 to 55% on echo done on 04/2022 On Lasix and Coreg chronic, stable, euvolemic Discussed with sister Gladys over the phone. Patient with h/o TBI, has intermittent behavioral issues she feels will worsen with prolonged hospitalization. Agreeable to continue hospitalization while awaiting repeat culture results given 1/2 blood cultures from 12/15 positive. Will call again tomorrow AM with update. DVT prophylaxis Lovenox Disposition: Back to [facility] as soon as medically appropriate (2) Head injury: (3) Closed L2 vertebral fracture: (4) Pneumonitis: (5) Lactic acidemia: (6) Hypertension: (7) Intellectual disability: (8) Congestive heart failure (CHF): Plan This is a 67-year-old male past med significant forintellectual disability, history of TBI, HLD, T2DM, [place], chronic ischemic heart disease, ASCVD, HTN, heart failure, reflux esophagitis, dental caries, GERD, BPH, arthritis of hip, spina bifida, depression with anxiety who is wheelchair-bound at baseline was [facility] and back pain and also spiking fevers and found to have L2 fracture and also possible pneumonitis. Patient experiencing worsening pain from rolling over in bed. Lumbar spine CT shows L2 small acute nondisplaced fracture. Seen and evaluated by ortho spine - conservative management, recommendation to wear brace with ambulation/activity. Otherwise, wear brace for transfers. No lifting over 5 pounds.Patient will need repeat xrays in few weeks and follow up with ortho spine. Patient noted to have a fever on 12/11 that is since resolved. Infectious work-up showing possible pneumonitis with history of aspiration in the past. Started on Rocephin and Doxy and will complete 7-day antibiotic course with Augmentin upon discharge. Blood culture from 12/15 with preliminary growth of gram positive cocci clusters on 1/2 sites that grew coag negative staph consistent with skin contaminant. Repeat blood cultures from 12/18 pending and will be followed up. Patient has remained afebrile for the past 24 hours and feels significantly improved. Denying any cough or shortness of breath. Please continue minced and moist diet, nectar thick liquids, aspiration precautions. Patient is comfortable and hemodynamically stable at time of discharge back to [facility]. Admission and Anticipated Discharge Date Admission Date: December 16, 2022 Supervising Physician Co-Signing Physician Notes Attending Addendum: care coordinated with MARILEE Kamla Rogers please refer to her notes for full details, I agree with her notes patient seen and examined, records reviewed by myself as well on exam, patient seen resting in bed, comfortable diagnoses and plan of care as per MARILEE Kamla Orourke MD Subjective Patient was seen and examined in room 303. Follow-up compression fracture and fever. Patient can provide limited history and states he felt better this morning. Wants to go home. Endorses dry cough and chronic back pain. No F/C, lightheadedness, CP, SOB, N/V, abdominal pain, dysuria. Had incontinent bowel movement overnight. 1/2 blood cultures positive for gram positive cocci clusters. Review of Systems Review of Systems: At least ten systems reviewed and negative except as noted in the HPI. Physical Exam Physical Exam: Gen: WD/WN, NAD, intermittently agitated, poor insight, lying in bed HEENT: Normocephalic, atraumatic, conjunctivae moist, mucous membranes moist Lung: Clear to Auscultation bilaterally, no wheezes/rales/rhonchi Heart: Regular rate, regular rhythm, no murmurs, rubs, or gallops Abdomen: Soft, NT, ND +BS x 4 Extremities: no edema Skin: Warm, no rash Results & Data Results & Data Vital Signs (Past 12 Hours) Vital Signs Temp Pulse Resp BP Pulse Ox O2 Del Method 12/18/22 07:45 Room Air 12/18/22 08:42 37 C 80 18 150/82 H 94 Room Air Laboratory Results Short CBC 12/18/22 Range/Units 12:59 WBC 14.31 H (4.8-10.8) K/ul Hgb 11.2 L (14.0-18.0) g/dl Hct 35.1 L (42.0-52.0) % Plt Count 163 (130-400) K/uL BMP 12/18/22 12:59 Sodium 132 L Potassium 4.4 Chloride 102 Carbon Dioxide 23 BUN 24 H Creatinine 1.26 Glucose 142 H Calcium 9.0 Diagnostic Findings Chest X-Ray 12/15/22 19:34 SINGLE VIEW CHEST CLINICAL HISTORY: Sepsis. FINDINGS: An AP, portable, upright chest radiograph is compared to chest x-ray and chest CT dated 05/27/2022. The heart is enlarged. There is pulmonary vascular congestion. Bibasilar opacities likely represent scarring/atelectasis. No large pleural effusion or pneumothorax is seen. The skeletal structures are osteopenic. There are chronic/healed left-sided rib fractures as well as chronic posttraumatic deformity of the left clavicle. Calcific tendinopathy is noted in the left shoulder. IMPRESSION: 1. Cardiomegaly with pulmonary vascular congestion. 2. Bibasilar opacities likely represent scarring/atelectasis. Correlate clinically. ACT 112: Negative or not required by law. Electronically signed by: Jayson Dimas M.D. 12/15/2022 10:[address] 12/15/22 19:34 Exam(s): CT L SPINE EXAM: CT Lumbar Spine Without Intravenous Contrast CLINICAL HISTORY: Reason for exam: fall. TECHNIQUE: Axial computed tomography images of the lumbar spine without intravenous contrast. CTDI is 28.1 mGy and DLP is 1645.53 mGy-cm. Automated exposure control was utilized for the study. A dose lowering technique was utilized adhering to the principles of ALARA. COMPARISON: CT abdomen and pelvis 04/11/22 FINDINGS: Chronic compression fracture of L1 is unchanged from 04/11/22. There is an acute nondisplaced fracture through the left sided L2 inferior endplate osteophyte (series 401, image 31). No other fractures are visualized. Vertebral body alignment is maintained. There is mild disc degeneration at L2-L3. There is mild multilevel facet degeneration. Spinal canal appears congenitally small, with probable superimposed mild stenosis at the L2-L3 level. MRI would be more sensitive. There is multilevel bilateral foraminal narrowing, left greater than right, greatest at the L2-L3 level. Sacroiliac joints are normally aligned. IMPRESSION: 1. Small acute nondisplaced fracture through the left sided L2 inferior endplate osteophyte. 2. Stable chronic compression fracture of L1. Electronically signed by: Sherman Amaya M.D. 12/15/22 21:41 PM Abdomen/Pelvis CT 12/15/22 19:35 Exam(s): CT ABDOMEN + PELVIS With Contrast IV Amt: 119ml iso 350 EXAM: CT Abdomen and Pelvis With Intravenous Contrast CLINICAL HISTORY: Reason for exam: fall. TECHNIQUE: Axial computed tomography images of the abdomen and pelvis with intravenous contrast. CTDI is 28.1 mGy and DLP is 1645.53 mGy-cm. Automated exposure control was utilized for the study. A dose lowering technique was utilized adhering to the principles of ALARA. CONTRAST: Patient received 119ml iso 350 of IV contrast COMPARISON: CT abdomen and pelvis 04/11/22 FINDINGS: There is a small nondisplaced acute fracture through a left-sided L2 inferior endplate osteophyte, better visualized on concurrently performed CT lumbar spine. There is a stable chronic L1 compression fracture. Regional skeleton appears otherwise intact. Lung bases are clear. Gallbladder surgically absent. There is hepatic steatosis. Spleen, pancreas, adrenal glands, and kidneys are unremarkable. There is atherosclerosis of the abdominal aorta without aneurysm. There is no adenopathy, free fluid, or free air. Urinary bladder and prostate are normal. Appendix is normal. There is no bowel obstruction or inflammation. IMPRESSION: 1. Small acute nondisplaced fracture through a left-sided L2 inferior endplate osteophyte. 2. Otherwise, no acute or significant findings. Electronically signed by: Sherman Amaya M.D. 12/15/22 21:44 PM (6) Hypertension Hypertension type: unspecified secondary hypertension Qualified Code(s): I15.9 - Secondary hypertension, unspecified
[2022-12-18] MEDS: DIVALPROEX EXTENDED RELEASE 500 MG TAB PO SCH (20:39)
[2022-12-18] MEDS: DOXEPIN HCL 10 MG CAPSULE PO SCH (20:40)
[2022-12-18] MEDS: cefTRIAXone SODIUM 2,000 MG in DEXTROSE 5% 50 ML IV SCH (20:54)
[2022-12-19] MEDS: PANTOprazole 40 MG TAB PO SCH (05:50)
[2022-12-19] MEDS: LEVOTHYROXINE SODIUM 100 MCG TABLET PO SCH (05:51)
[2022-12-19] MEDS: ENOXAPARIN INJ 40 MG/0.4 ML SYR SQ SCH (05:51)
[2022-12-19] MEDS: risperiDONE 0.5 MG TABLET PO SCH (07:53)
[2022-12-19] MEDS: VENLAFAXINE HCL XR 37.5 MG CAPXR PO SCH (07:53)
[2022-12-19] MEDS: carvediloL 25 MG TAB PO SCH (07:53)
[2022-12-19] MEDS: DOXYCYCLINE HYCLATE 100 MG CAP PO SCH (07:53)
[2022-12-19] MEDS: SENNA 8.6 MG TAB PO SCH (07:53)
[2022-12-19] MEDS: ASPIRIN 81 MG CHEW PO SCH (07:53)
[2022-12-19] MEDS: QUEtiapine FUMARATE 25 MG TABLET PO SCH (07:53)
[2022-12-19] MEDS: MULTIVITAMIN TAB PO SCH (07:54)
[2022-12-19] MEDS: ARIPiprazole 15 MG TAB PO SCH (07:54)
[2022-12-19] MEDS: busPIRone 15 MG TAB PO SCH (07:54)
[2022-12-19] MEDS: lisinopril 10 MG TAB PO SCH (07:54)
[2022-12-19] MEDS: VENLAFAXINE HCL XR 75 MG CAPXR PO SCH (07:54)
[2022-12-19] MEDS: buPROPion XL 300 MG TABCR PO SCH (07:54)
[2022-12-19] MEDS: amLODIPine BESYLATE 5 MG TAB PO SCH (07:54)
[2022-12-19] MEDS: INSULIN ASPART PER UNIT CHARGE SC SCH (07:54)
[2022-12-19] MEDS: FUROSEMIDE 40 MG TAB PO SCH (07:55)
[2022-12-19 09:31] LABS: A calco-baum cmplx NotReported Not Detected (NotDetected); Bact fragilis Not Reported Not Detected (NotDetected); C auris Not Reported Not Detected (NotDetected); Calbicans Not Reported Not Detected (NotDetected); Candida glabrata Not Reported Not Detected (NotDetected); Candida krusei Not Reported Not Detected (NotDetected); Cneoformans/gatti Not Reported Not Detected (NotDetected); Cparapsilosis Not Reported Not Detected (NotDetected); Ctropicalis Not Reported Not Detected (NotDetected); E cloacae compx Not Reported Not Detected (NotDetected); Efaecalis Not Reported Not Detected (NotDetected); Efaecium Not Reported Not Detected (NotDetected); Enterobacterales Not Reported Not Detected (NotDetected); Escherichia coli Not Reported Not Detected (NotDetected); H influenzae Not Reported Not Detected (NotDetected); K aerogenes Not Reported Not Detected (NotDetected); Koxytoca Not Reported Not Detected (NotDetected); Kpneumoniae grp Not Reported Not Detected (NotDetected); Lmonocyt Not Reported Not Detected (NotDetected); N meningitidis Not Reported Not Detected (NotDetected); P aeruginosa Not Reported Not Detected (NotDetected); Proteus spp Not Reported Not Detected (NotDetected); Salmonella spp Not Reported Not Detected (NotDetected); Smarcescens Not Reported Not Detected (NotDetected); Staph lugdunensis Not Reported Not Detected (NotDetected); Staph spp. Not Reported DETECTED (NotDetected); Staphaureus Not Reported Not Detected (NotDetected); Staphepi Not Reported Not Detected (NotDetected); Stenmaltophilia Not Reported Not Detected (NotDetected); Strep agal(GrpB) Not Reported Not Detected (NotDetected); Strep pneum Not Reported Not Detected (NotDetected); Strep pyog (GrpA) Not Reported Not Detected (NotDetected); Strep spp Not Reported Not Detected (NotDetected)
[2022-12-19 09:37] LABS: Staphylococcus spp. DETECTED (NotDetected)
--- NOTE | 2022-12-19 10:44 | Discharge Summary ---
Discharge Summary Date of Service December 19, 2022 Notes For Next Care Provider Lumbar spine CT shows L2 small acute nondisplaced fracture: brace with ambulation per ortho spine, f/u for XR in a few weeks. Complete Augmentin course for possible aspiration PNA Medication Changes From Visit Augmentin Admission HPI Per Admitting Provider 67-year-old male past med significant forintellectual disability, HLD, T2DM, [place], chronic ischemic heart disease, ASCVD, HTN, heart failure, reflux esophagitis, dental caries, GERD, BPH, arthritis of hip, spina bifida, depression with anxiety [facility]. Patient seem to be rolled over from the bed. Came to the ER early in the morning CT head and CT cervical spine was okay and was discharged back to [facility]. But was having lot of back pain so was brought to ER again. He was also having mild temperature. Chest x-ray shows bibasilar opacities possible atelectasis versus scaring. Lumbar spine CT shows small acute nondisplaced fracture left-sided L2 with inferior endplate. Caregiver is at bedside. Patient denies any headache or neck pain at this time no chest pain or abdominal pain. No nausea vomiting. No diarrhea. Patient is in the diapers. He is wheelchair-bound. Currently hemodynamically stable. Past medical history as mentioned above Past surgical history colonoscopy, EGD, EGD with endoscopic ultrasound, bilateral removal of erupted tooth. Social history currently living at [facility]. No smoking. No alcohol. No drug use. Family history mother had diabetes and heart disorder. Father has heart disorder. Maternal grandfather had stroke. Maternal grandmother had stroke. Admission Exam Per Admitting Provider General-not in distress Head- atraumatic Eyes- PERRL,. ENT- oropharynx clear Neck- supple, no JVD, no adenopathy, carotids +2/2, no bruits appreciated Lungs- clear to auscultation no wheezing or crackles. Heart- regular rhythm; no murmur, no gallop. Abdomen- normal bowel sounds, soft, nontender, no distension. Extremities- no pretibial edema, no erythema. Neuro- alert, oriented PERRL, no facial palsy; no dysarthria;obeys commands moves extremities. Skin- warm & dry Principal Dx & Hospital Course #1 = Principal Diagnosis (1) Back pain: (2) Head injury: (3) Closed L2 vertebral fracture: (4) Pneumonitis: (5) Lactic acidemia: (6) Hypertension: (7) Intellectual disability: (8) Congestive heart failure (CHF): Plan This is a 67-year-old male past med significant forintellectual disability, history of TBI, HLD, T2DM, [place], chronic ischemic heart disease, ASCVD, HTN, heart failure, reflux esophagitis, dental caries, GERD, BPH, arthritis of hip, spina bifida, depression with anxiety who is wheelchair-bound at baseline [facility] and also spiking fevers and found to have L2 fracture and also possible pneumonitis. Patient experiencing worsening pain from rolling over in bed. Lumbar spine CT shows L2 small acute nondisplaced fracture. Seen and evaluated by ortho spine - conservative management, recommendation to wear brace with ambulation/activity. Otherwise, wear brace for transfers. No lifting over 5 pounds.Patient will need repeat xrays in few weeks and follow up with ortho spine. Patient noted to have a fever on 12/11 that is since resolved. Infectious work-up showing possible pneumonitis with history of aspiration in the past. Started on Rocephin and Doxy and will complete 7-day antibiotic course with Augmentin upon discharge. Blood culture from 12/15 with preliminary growth of gram positive cocci clusters on 1/2 sites that grew coag negative staph consistent with skin contaminant. Repeat blood cultures from 12/18 pending and will be followed up. Patient has remained afebrile for the past 24 hours and feels significantly improved. Denying any cough or shortness of breath. Please continue minced and moist diet, nectar thick liquids, aspiration precautions. Patient is comfortable and hemodynamically stable at time of discharge back to [facility]. Discharge Exam Gen: WD/WN, NAD, intermittently agitated, poor insight, lying in bed HEENT: Normocephalic, atraumatic, conjunctivae moist, mucous membranes moist Lung: Clear to Auscultation bilaterally, no wheezes/rales/rhonchi Heart: Regular rate, regular rhythm, no murmurs, rubs, or gallops Abdomen: Soft, NT, ND +BS x 4 Extremities: no edema Skin: Warm, no rash Updated Medication List Medication Instructions Recorded Confirmed Type sennosides 8.6 mg tablet (senna) 8.6 mg PO BID 09/21/18 12/15/22 History lancets (Lancets,Thin) #50 ea 11/07/19 04/11/22 Rx bupropion HCl 300 mg 24 hr tablet, 300 mg PO QAM 05/05/20 12/15/22 History extended release aspirin 81 mg chewable tablet 81 mg PO QAM 06/09/20 12/15/22 History aripiprazole 15 mg tablet (Abilify) 15 mg PO QAM 07/31/20 12/15/22 History buspirone 15 mg tablet 15 mg PO BID 07/31/20 12/15/22 History quetiapine 50 mg tablet (Seroquel) 50 mg PO TID 07/31/20 12/15/22 History doxepin 10 mg capsule 10 mg PO HS 02/07/21 12/15/22 History omeprazole 40 mg capsule,delayed 40 mg PO DAILYBB 05/21/21 12/15/22 History release divalproex 500 mg tablet,extended 1,500 mg PO HS 04/11/22 12/15/22 History release 24 hr multivitamin (Daily-Ezekiel tablet) 1 tab PO QAM 04/11/22 12/15/22 History risperidone 0.25 mg tablet 0.25 mg PO QAM 04/11/22 12/15/22 History venlafaxine 37.5 mg 37.5 mg PO QAM 04/11/22 12/15/22 History capsule,extended release 24 hr venlafaxine 75 mg capsule,extended 75 mg PO QAM 04/11/22 12/15/22 History release 24 hr amlodipine 10 mg tablet 10 mg PO QAM 07/16/22 12/15/22 History furosemide 40 mg tablet 40 mg PO QAM 07/16/22 12/15/22 History lisinopril 10 mg tablet 10 mg PO QAM 07/16/22 12/15/22 History ammonium lactate 12 % topical cream 1 applic topical DAILY PRN other 12/15/22 12/15/22 History bisacodyl 5 mg tablet,delayed 5 mg PO DAILY PRN Constipation 12/15/22 12/15/22 History release calcium carbonate 750 mg PO DIRECTED 12/15/22 12/15/22 History carvedilol 25 mg tablet 25 mg PO BID 12/15/22 12/15/22 History diclofenac sodium 1 % topical gel 1 ea topical DAILY PRN Other 12/15/22 12/15/22 History empagliflozin 25 mg tablet 25 mg PO QAM 12/15/22 12/15/22 History (Jardiance) glimepiride 2 mg tablet 2 mg PO QAM 12/15/22 12/15/22 History guaifenesin 600 mg tablet, 600 mg PO BID PRN Congestion 12/15/22 12/15/22 History extended release 12 hr (Mucinex) levothyroxine 100 mcg tablet 100 mcg PO QAM 12/15/22 12/15/22 History white petrolatum (Petroleum Jelly 1 applic topical DAILY PRN Dry Skin 12/15/22 12/15/22 History topical) acetaminophen 325 mg tablet 650 mg PO Q6H PRN Pain #30 tabs 12/19/22 12/15/22 Rx amoxicillin 875 mg-potassium 1 tab PO BID #7 tabs 12/19/22 Rx clavulanate 125 mg tablet Hospital Stay Data Consultations 12/15/22 22:17 ED Decision to Admit Stat 12/16/22 08:00 Consult Orthopedic Spine Surgery Routine Diagnostic Imagining Performed 12/15/22 19:34 CT lumbar spine wo con Stat 12/15/22 19:35 CT abd pelvis IV con only Stat Pending Results Patient Have Any Pending Studies at Discharge: Yes Discharge Instructions Given to Patient (Per Discharging Provider) MEDICATION CHANGES: Continue Augmentin (antibiotic) twice a day with food until gone SUMMARY OF TEST RESULTS: You were admitted to hospital for back pain Found to have a fever thought to be due to aspiration pneumonitis Please continue minced and moist diet, nectar thick liquids, aspiration precautions 1/2 blood cultures from 12/15 grow coag negative staph that was likely a con taminant - repeat blood cultures pending as below Was evaluated by ortho spine for back pain, recommend conservative management Wear your brace with ambulation/activity. Otherwise, wear brace for transfers. No lifting over 5 pounds. Will need repeat xrays in few weeks and follow up with ortho spine PENDING TEST RESULTS: Repeat blood culture from 12/18 - will will follow and contact you if notable RECOMMENDATIONS FOR FOLLOW-UP: Follow up with PCP as scheduled. Complete antibiotic in its entirety. Continue medication regimen as scheduled aside from changes noted above. OTHER INSTRUCTIONS: Seek medical attention if you have: * temperature above 101 * chest pain or trouble breathing * abdominal pain, nausea, vomiting * diarrhea, dark stools or bloody stools * any unanswered questions or concerns Call 911 if symptoms are severe. Please take good care of yourself. Call if you have any questions or problems. You can reach a [facility] hospitalist on duty at [facility] 24 hours a day by calling [phone]. Total Time Total Time Spent Total Time Spent (In Minutes): 60 Supervising Physician Co-Signing Physician Notes Attending Addendum: care coordinated with MARILEE Kamla Rogers please refer to her notes for full details, I agree with her notes patient seen and examined, records reviewed by myself as well on exam, patient seen resting in bed, comfortable diagnoses and plan of care as per MARILEE Orourke MD
== END 2022-12-19 11:48 | disposition home or self-care (01) | DRG 551 ==
LOC: ED 18:49 → 3E 12-16 00:09 → SUATTDRO 12-16 00:09 → 3E 12-16 01:20

== ENCOUNTER 2024-04-05 17:23 | Inpatient (IN) ==
--- NOTE | 2024-04-05 17:38 | Emergency Department Note ---
Impression & Plan Sepsis, Elevated troponin, Hypotension, HESHAM (acute kidney injury), Dehydration, Leukocytosis, Elevated lactic acid level, Acute hyponatremia, Acute UTI ED Provider Note NAME: GABO RDZ AGE: 68 SEX: M : 1955 ARRIVES VIA: Ambulance INFORMANT: [Patient][ems, nursing] ED PROVIDER(S): [Jayson Zepeda MD] CHIEF COMPLAINT: Abdominal pain HISTORY OF PRESENT ILLNESS: The patient is a 68-year-old male with intellectual disability. He is part of [employer]. The patient was brought to our hospital for intermittent abdominal pain. As per the report from the EMS crew, the patient had a fall onto his buttock today. This was witnessed and he did not suffer any injury. As the day has gone on, he has been complaining of abdominal pain, he was brought for evaluation. The patient states that he does not feel well, he currently denies pain. He is a poor historian. Of note, upon arrival, temperature was recorded at 103. Blood pressure at around 75 systolic. PMHx/PSHx/Social Hx: See Below PHYSICAL EXAM: GENERAL: Patient is in no acute distress. HEENT: No acute trauma, normocephalic atraumatic, mucous membranes dry, no nasal congestion. NECK: No stridor, no adenopathy, no meningismus, trachea is midline. LUNGS: Clear to auscultation bilaterally when listening anterior, no wheeze, no rhonchi, breath sounds equal. HEART: Without murmurs gallops or rubs, regular rate and rhythm. Heart tones distant. ABDOMEN: Soft, nontender, no peritonitis. Obese. EXTREMITIES: No cyanosis, full range of motion of all the joints without pain or difficulty. There is a bandage/dressing on the left distal leg with some surrounding erythema/warmth. When this dressing is removed, the patient has a superficial abrasion with skin loss with some discharge on the dressing and some surrounding erythema. There is warmth to the area indicative of a potential cellulitis. There are some abrasions of different ages on his lower extremities. NEUROLOGIC: Awake, does move all extremities. Intellectual disability noted. SKIN: No jaundice, no diaphoresis. Somewhat warm to the touch. DIFFERENTIAL DIAGNOSIS: Bacteremia or sepsis, diverticulitis, appendicitis, abscess, viral illness, pneumonia, UTI, cellulitis, dehydration, among others. EMERGENCY DEPARTMENT PROCEDURES: MEDICAL DECISION MAKING: There is a marked leukocytosis with a white blood cell count of over 38,000. This is certainly consistent with infection. The patient does have an anemia however, this is a baseline finding when looking back at previous testing. Platelet count slightly low but the patient carries a history of a mild thrombocytopenia. There was a significant left shift on the differential indicative of infection. INR was elevated slightly at 1.2. VBG did not show any acidosis or significant CO2 retention. Renal panel testing shows acute kidney injury with a creatinine of 2.6. Sodium was low at 128. Lactic acid level was elevated at over 3, consistent with infection/sepsis. No concerning liver enzyme elevation. Pro-Juan Miguel was quite elevated consistent with a bacterial source for his fever/infection. ECG showed a normal sinus rhythm, no obvious acute ST elevation. Cardiac enzyme testing x 1 is somewhat elevated at over 200, consistent with potential cardiac injury versus mismatch from his hypotension/sepsis. Urinalysis does show findings of infection. Respiratory bio fire was negative. Chest film does not show pneumonia. Abdominal and pelvis CT did not show any source for an acute surgical process, no abscess visualized. Brain CT showed no acute bleed or mass effect. On exam, the patient appeared quite dehydrated. He did not have findings of meningismus. He was hypotensive and febrile. The patient was rapidly/aggressively cared for given his vital signs. He received 2.5 L of IV saline. This will qualify for 30 cc/kg of fluid hydration based on ideal body weight. He was given IV Zosyn and IV daptomycin as antibiotic coverage. He was given IV Tylenol. A Alfred catheter was placed to monitor urine output. The patient has responded fairly well to treatment. His blood pressure is now around 100 systolic. He is awake and interactive. Initially, he was not making any urine when the catheter was placed but now, he is beginning to have urine output. The patient is going to require a hospital stay. He appears to have sepsis from a urinary source. Certainly, the left lower leg wound could also be a source for his sepsis but, clinically, the cellulitis does not seem severe enough to cause his laboratory findings and vital sign abnormalities. I did speak with the patient and the staff with him. I spoke with case management, the on-call hospitalist was consulted. Prior/Outside records/notes reviewed: Today's EMS notes describing his presentation and transport to this hospital. ECG per my interpretation: Indication was presumed sepsis. The ECG shows a normal sinus rhythm with a rate of 89. There is an old anterior septal infarct. There is no acute ST elevation, no PVCs. There are some inverted T waves in the high lateral leads. QTc is 472. Continuous Cardiac Monitoring per my interpretation: An order was placed for continuous cardiac monitoring. The monitor shows a rate of 91 with normal sinus rhythm. Imaging/x-ray results per my interpretation: Chest x-ray shows a poor inspiratory effort as well as cardiomegaly. No obvious focal infiltrate. Chronic Medical/Social conditions affecting care: History of intellectual disability. Care/Management discussed with: Case management, the on-call hospitalist. Level of care consideration(s): After review of the information above and other included data: --I believe the patient requires escalation of care to admission Critical Care Note: I have personally spent 55 minutes of critical care time in the direct management of this patient. This includes bedside care, interpretation of diagnostic studies, and testing, discussion with consultants, patient, and family members, and other required patient management activities. This 55 minutes is in excess of all separately billable procedures. DISPOSITION: Admission Past Med/Surg History Problem List Acute UTI (Acute) Acute hyponatremia (Acute) Elevated lactic acid level (Acute) Leukocytosis (Acute) Dehydration (Acute) HESHAM (acute kidney injury) (Acute) Hypotension (Acute) Elevated troponin (Acute) Sepsis (Acute) Back pain Closed L2 vertebral fracture (Acute) Pulmonary edema (Acute) Pneumonitis (Acute) Lactic acidemia (Acute) Contrast dye induced nephropathy Acute renal insufficiency Elevated troponin Chronic heart failure with reduced ejection fraction and diastolic dysfunction Elevated troponin I level Acute respiratory failure with hypoxia Influenza A (Acute) Low oxygen saturation Respiratory distress Hypertension (Acute) Intellectual disability (Acute) Acute kidney failure Aspiration into airway (Acute) Airway clearance impairment (Acute) Encounter for pre-operative examination Congestive heart failure (CHF) Acute respiratory failure with hypoxia Aspiration pneumonia DVT prophylaxis Discharge planning issues Psychiatric disorder Intermittent explosive disorder Anxiety disorder, unspecified Depression Oral candidiasis Weakness (Acute) DVT prophylaxis CHF (congestive heart failure) Sepsis (Acute) Severe sepsis Abdominal pain Cholelithiasis Encounter for pre-operative examination History of laparoscopic cholecystectomy Laparoscopic cholecystectomy [address] Wolff Vocal cord paralysis, unilateral complete H/O tooth extraction Coronary artery disease (Chronic) GERD (gastroesophageal reflux disease) (Chronic) Medical History Thrombocytopenia Chronic thrombocytopenia, baseline platelets low 100s per chart review Obesity Cerebral palsy Moderate intellectual disabilities sister/POA -ASHLEY IRENE [phone]-[phone] CRUZ 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 SIGNS CONSENTS Anemia MRSA (methicillin resistant Staphylococcus aureus) carrier Dysphagia Keratoconus Cataract Arthritis Spina bifida Hypothyroidism Diabetes mellitus, type 2 Chronic ischemic heart disease Hyperlipidemia Hypertension Intermittent explosive disorder Impulse control disorder Severe anxiety Combative behavior Fall Fall risk Surgical History History of esophagogastroduodenoscopy (EGD) History of colonoscopy EGD/colonoscopy (12/07/19): MAC sedation at [facility] History of bronchoscopy Flexible bronchoscopy with BAL (02/04/18): Grade view 1, Elective glidescope #4, ETT 8.5 at [facility] (done for aspiration PNA) Family History Other No significant family history Social History Smoking Status: Never smoker Second Hand Exposure: No; Do You Dip or Chew Tobacco: No; Hx Alcohol Use: No Hx Substance Use: No Preferred Language: Estonian Communication Ability: Impaired Communication Ability Comment: PT IS 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 Home Meds Home Medications Medication Instructions Recorded Confirmed sennosides 8.6 mg tablet (senna) 8.6 mg PO .DAILY@0800,1800 09/21/18 04/05/24 bupropion HCl 300 mg 24 hr tablet, 300 mg PO .DAILY @0800 05/05/20 04/05/24 extended release aspirin 81 mg chewable tablet 81 mg PO .DAILY @0800 02/27/21 12/24/24 aripiprazole 15 mg tablet (Abilify) 15 mg PO .DAILY @ 79907/31/20 04/05/24 buspirone 15 mg tablet 15 mg PO .DAILY @ 08,179907/31/20 04/05/24 quetiapine 50 mg tablet (Seroquel) 50 mg PO .[id number],1400,1800 07/31/20 04/05/24 doxepin 10 mg capsule 10 mg PO .DAILY @179902/07/21 04/05/24 omeprazole 40 mg capsule,delayed 40 mg PO .DAILY@79905/21/21 04/05/24 release divalproex 500 mg tablet,extended 1,500 mg PO UD 04/11/22 04/05/24 release 24 hr multivitamin (Daily-Ezekiel tablet) 1 tab PO .DAILY @ 79904/11/22 04/05/24 risperidone 0.25 mg tablet 0.25 mg PO .DAILY@79904/11/22 04/05/24 venlafaxine 37.5 mg 37.5 mg PO .DAILY@79904/11/22 04/05/24 capsule,extended release 24 hr venlafaxine 75 mg capsule,extended 75 mg PO .DAILY@79904/11/22 04/05/24 release 24 hr furosemide 40 mg tablet 40 mg PO .DAILY @79907/16/22 04/05/24 lisinopril 10 mg tablet 10 mg PO .DAILY@79907/16/22 04/05/24 carvedilol 25 mg tablet 25 mg PO .DAILY @ 0812/15/22 04/05/24 empagliflozin 25 mg tablet 25 mg PO .DAILY@79912/15/22 04/05/24 (Jardiance) glimepiride 2 mg tablet 2 mg PO .DAILY@79912/15/22 04/05/24 levothyroxine 100 mcg tablet 100 mcg PO .DAILY@69912/15/22 04/05/24 sucralfate 1 gram tablet 1 g PO .DAILY@79911/27/23 04/05/24 Previous Rx's Medication Instructions Recorded lancets (Lancets,Thin) #50 ea 11/07/19 Results & Data (ED) Vital Signs Vital Signs - 24 hr 04/05/24 17:28 04/05/24 17:30 04/05/24 17:30 Temperature Temperature Source Pulse Rate 94 H Pulse Rate [Apical] Pulse Rhythm Respiratory Rate Respiratory Effort / Characteristics Respiratory Depth Blood Pressure 52/40 L 75/33 L Blood Pressure [Right Arm] Blood Pressure Mean 43 44 Blood Pressure Mean [Right Arm] Pulse Oximetry Oxygen Delivery Method Sepsis New/Unexplained Change in Mental Status Sepsis Action Taken by Nursing 04/05/24 17:35 04/05/24 17:39 04/05/24 17:42 Temperature 39.5 C H Temperature Source Oral Pulse Rate 93 H 93 H Pulse Rate [Apical] Pulse Rhythm Respiratory Rate 22 23 Respiratory Effort / Characteristics Respiratory Depth Blood Pressure Blood Pressure [Right Arm] Blood Pressure Mean Blood Pressure Mean [Right Arm] Pulse Oximetry Oxygen Delivery Method Sepsis New/Unexplained Change in Mental Status Sepsis Action Taken by Nursing 04/05/24 17:45 04/05/24 17:51 04/05/24 18:07 Temperature 39.5 C H Temperature Source Oral Pulse Rate 88 94 H Pulse Rate [Apical] Pulse Rhythm Respiratory Rate 17 20 Respiratory Effort / Characteristics Respiratory Depth Blood Pressure 85/65 L 52/44 L Blood Pressure [Right Arm] Blood Pressure Mean 70 46 Blood Pressure Mean [Right Arm] Pulse Oximetry 92 96 Oxygen Delivery Method Room Air Room Air Sepsis New/Unexplained Change in Mental Status N/A Sepsis Action Taken by Nursing Physician Notified 04/05/24 18:07 04/05/24 18:12 04/05/24 19:00 Temperature Temperature Source Pulse Rate 94 H 91 H Pulse Rate [Apical] Pulse Rhythm Regular Respiratory Rate 12 22 20 Respiratory Effort / Characteristics Non-Labored Respiratory Depth Normal Blood Pressure 111/57 L Blood Pressure [Right Arm] 100/54 L Blood Pressure Mean 75 Blood Pressure Mean [Right Arm] 69 Pulse Oximetry 95 93 Oxygen Delivery Method Room Air Room Air Sepsis New/Unexplained Change in Mental Status Sepsis Action Taken by Nursing 04/05/24 20:00 Temperature Temperature Source Pulse Rate Pulse Rate [Apical] 77 Pulse Rhythm Respiratory Rate 20 Respiratory Effort / Characteristics Non-Labored Respiratory Depth Normal Blood Pressure Blood Pressure [Right Arm] 95/49 L Blood Pressure Mean Blood Pressure Mean [Right Arm] 64 Pulse Oximetry 93 Oxygen Delivery Method Room Air Sepsis New/Unexplained Change in Mental Status Sepsis Action Taken by Prison Medications Current Medication List: was personally reviewed by me Laboratory Data Attestation: I reviewed the patient's lab results. 04/05/24 17:40 04/05/24 17:40 Lab Results 04/05/24 04/05/24 04/05/24 Range/Units 17:40 17:44 17:45 WBC 38.39 H* (4.8-10.8) K/ul RBC 4.07 L (4.70-6.10) M/uL Hgb 11.7 L (14.0-18.0) g/dl POC Hgb 13.3 L (14.0-18.0) g/dl Hct 35.5 L (42.0-52.0) % POC Hct 39 L (42-52) % MCV 87.2 (80.0-100.0) fL MCH 28.7 (25.0-34.0) pg MCHC 33.0 (32.0-36.0) g/dL RDW Std Deviation 55.8 H (36.4-46.3) fL RDW Coeff of Josiah 17.7 H (11.5-14.5) % Plt Count 117 L (130-400) K/uL MPV 11.7 (9.4-12.4) fL Immature Gran % (Auto) 3.0 % Neut % (Auto) 81.6 % Lymph % (Auto) 7.4 % Luna % (Auto) 7.7 % Eos % (Auto) 0.1 % Baso % (Auto) 0.2 % Neut # (Auto) 31.30 H (1.40-6.50) K/uL Lymph # (Auto) 2.85 (1.20-3.40) K/uL Luna # (Auto) 2.96 H (0.11-0.59) K/uL Eos # (Auto) 0.04 (0.00-0.50) K/uL Baso # (Auto) 0.07 (0.00-0.20) K/uL Immature Gran # (Auto) 1.17 H (0.01-0.20) K/uL Dohle Bodies 1+ PT 12.9 H (9.0-12.0) Seconds INR 1.2 H (0.9-1.1) APTT 31 (21-31) Seconds PTT Ratio 1.2 VBG pH (7.36-7.41) VBG pCO2 (38-50) mmHg VBG pO2 mmHg VBG HCO3 mmol/L VBG O2 Saturation % VBG Base Excess mEq/L POC Sodium 132 L (135-144) mmol/L Sodium 128 L (136-145) mmol/L POC Potassium 4.2 (3.3-5.0) mmol/L Potassium 4.1 (3.5-5.1) mmol/L POC Chloride 98 L (101-112) mmol/L Chloride 96 L (98-107) mmol/L Carbon Dioxide 21 (21-32) mmol/L POC Total CO2 21 L (24-31) mmol/L Anion Gap 11 (3-11) POC Anion Gap 19.0 (16-25) mmol/L POC BUN 34 H (7-18) mg/dl BUN 33 H (6-23) mg/dl Creatinine 2.67 H (0.6-1.4) mg/dl POC Creatinine 3.2 H (0.6-1.3) mg/dl Est Cr Clr Drug Dosing Not Reportable eGFR 25.54 BUN/Creatinine Ratio 12.4 (10-20) Glucose 106 H (70-99(Fasting)) mg/dl POC Glucose (other) 106 H (70-99) mg/dl Lactate 3.3 H* (0.4-2.0) mmol/L Calcium 9.2 (8.6-10.3) mg/dl POC Ioniz Calcium Giselle 1.14 (1.12-1.32) mmol/l Magnesium 1.9 (1.7-2.4) mg/dl Total Bilirubin 0.8 (0.2-1.0) mg/dl Direct Bilirubin 0.1 (0-0.2) mg/dl AST 40 H (13-39) U/L ALT 36 (7-52) U/L Alkaline Phosphatase 55 (34-104) U/L Troponin I High Sens 216.4 H* (0-20) pg/ml Total Protein 8.4 H (6.0-8.3) gm/dl Albumin 3.5 (3.4-5.0) gm/dl Procalcitonin 22.60 H (0-0.5) ng/ml Urine Color Urine Appearance (Clear) Urine pH (4.5-7.5) Ur Specific [place] (1.000-1.030) Urine Protein (Negative) Urine Glucose (UA) (Negative) Urine Ketones (Negative) Urine Blood (Negative) Urine Nitrite (Negative) Urine Bilirubin (Negative) Urine Urobilinogen (Negative) Ur Leukocyte Esterase (Negative) Urine WBC (Auto) (0-5) /hpf Urine RBC (Auto) (0-2) /hpf U Hyaline Cast (Auto) (0-2) /lpf U Epithel Cells (Auto) (0-2) /hpf Urine Bacteria (Auto) (None Seen) Adenovirus (PCR) Not Detected (NotDetected) B. pertussis DNA (PCR) Not Detected (NotDetected) B.parapertussis DNA PCR Not Detected (NotDetected) C. pneumoniae DNA (PCR) Not Detected (NotDetected) Coronavirus OC43 (PCR) Not Detected (NotDetected) Coronavirus HKU1 (PCR) Not Detected (NotDetected) Coronavirus 229E (PCR) Not Detected (NotDetected) SARS-CoV-2 (PCR) Not Detected (NotDetected) Coronavirus NL63 (PCR) Not Detected (NotDetected) Human Metapneumovir PCR Not Detected (NotDetected) Influenza Type A (PCR) Not Detected (NotDetected) Influenza Type B (PCR) Not Detected (NotDetected) M. pneumoniae (PCR) Not Detected (NotDetected) Parainfluenza 1 (PCR) Not Detected (NotDetected) Parainfluenza 2 (PCR) Not Detected (NotDetected) Parainfluenza 3 (PCR) Not Detected (NotDetected) Parainfluenza 4 (PCR) Not Detected (NotDetected) RSV (PCR) Not Detected (NotDetected) Entero/Rhino (PCR) Not Detected (NotDetected) 04/05/24 04/05/24 04/05/24 Range/Units 18:14 18:20 19:34 WBC (4.8-10.8) K/ul RBC (4.70-6.10) M/uL Hgb (14.0-18.0) g/dl POC Hgb (14.0-18.0) g/dl Hct (42.0-52.0) % POC Hct (42-52) % MCV (80.0-100.0) fL MCH (25.0-34.0) pg MCHC (32.0-36.0) g/dL RDW Std Deviation (36.4-46.3) fL RDW Coeff of Josiah (11.5-14.5) % Plt Count (130-400) K/uL MPV (9.4-12.4) fL Immature Gran % (Auto) % Neut % (Auto) % Lymph % (Auto) % Luna % (Auto) % Eos % (Auto) % Baso % (Auto) % Neut # (Auto) (1.40-6.50) K/uL Lymph # (Auto) (1.20-3.40) K/uL Luna # (Auto) (0.11-0.59) K/uL Eos # (Auto) (0.00-0.50) K/uL Baso # (Auto) (0.00-0.20) K/uL Immature Gran # (Auto) (0.01-0.20) K/uL Dohle Bodies PT (9.0-12.0) Seconds INR (0.9-1.1) APTT (21-31) Seconds PTT Ratio VBG pH 7.38 (7.36-7.41) VBG pCO2 36 L (38-50) mmHg VBG pO2 36 mmHg VBG HCO3 21 mmol/L VBG O2 Saturation < 60.0 % VBG Base Excess -3.3 mEq/L POC Sodium (135-144) mmol/L Sodium (136-145) mmol/L POC Potassium (3.3-5.0) mmol/L Potassium (3.5-5.1) mmol/L POC Chloride (101-112) mmol/L Chloride (98-107) mmol/L Carbon Dioxide (21-32) mmol/L POC Total CO2 (24-31) mmol/L Anion Gap (3-11) POC Anion Gap (16-25) mmol/L POC BUN (7-18) mg/dl BUN (6-23) mg/dl Creatinine (0.6-1.4) mg/dl POC Creatinine (0.6-1.3) mg/dl Est Cr Clr Drug Dosing eGFR BUN/Creatinine Ratio (10-20) Glucose (70-99(Fasting)) mg/dl POC Glucose (other) (70-99) mg/dl Lactate 1.8 (0.4-2.0) mmol/L Calcium (8.6-10.3) mg/dl POC Ioniz Calcium Giselle (1.12-1.32) mmol/l Magnesium (1.7-2.4) mg/dl Total Bilirubin (0.2-1.0) mg/dl Direct Bilirubin (0-0.2) mg/dl AST (13-39) U/L ALT (7-52) U/L Alkaline Phosphatase (34-104) U/L Troponin I High Sens 158.7 H* D (0-20) pg/ml Total Protein (6.0-8.3) gm/dl Albumin (3.4-5.0) gm/dl Procalcitonin (0-0.5) ng/ml Urine Color Dark Yellow Urine Appearance Turbid A (Clear) Urine pH 5.0 (4.5-7.5) Ur Specific [place] 1.023 (1.000-1.030) Urine Protein 2+ H (Negative) Urine Glucose (UA) Trace H (Negative) Urine Ketones Trace H (Negative) Urine Blood 3+ H (Negative) Urine Nitrite Negative (Negative) Urine Bilirubin 1+ H (Negative) Urine Urobilinogen Negative (Negative) Ur Leukocyte Esterase 2+ H (Negative) Urine WBC (Auto) >50 H (0-5) /hpf Urine RBC (Auto) >20 H (0-2) /hpf U Hyaline Cast (Auto) 3-5 H (0-2) /lpf U Epithel Cells (Auto) >20 H (0-2) /hpf Urine Bacteria (Auto) 3+ H (None Seen) Adenovirus (PCR) (NotDetected) B. pertussis DNA (PCR) (NotDetected) B.parapertussis DNA PCR (NotDetected) C. pneumoniae DNA (PCR) (NotDetected) Coronavirus OC43 (PCR) (NotDetected) Coronavirus HKU1 (PCR) (NotDetected) Coronavirus 229E (PCR) (NotDetected) SARS-CoV-2 (PCR) (NotDetected) Coronavirus NL63 (PCR) (NotDetected) Human Metapneumovir PCR (NotDetected) Influenza Type A (PCR) (NotDetected) Influenza Type B (PCR) (NotDetected) M. pneumoniae (PCR) (NotDetected) Parainfluenza 1 (PCR) (NotDetected) Parainfluenza 2 (PCR) (NotDetected) Parainfluenza 3 (PCR) (NotDetected) Parainfluenza 4 (PCR) (NotDetected) RSV (PCR) (NotDetected) Entero/Rhino (PCR) (NotDetected) Administered Medications Sodium Chloride (Nss) 1,000 mls @ 125 mls/hr IV .Q8H SUPRIYA Stop: 04/06/24 20:29 Last Admin: 04/05/24 20:47 Dose: 125 mls/hr Documented By: HB Discontinued Medications Acetaminophen (Ofirmev) 1,000 mg in 100 mls @ 400 mls/hr IV NOW STA Stop: 04/05/24 17:45 Last Infusion: 04/05/24 18:15 Dose: Infused Documented By: Admin: 04/05/24 17:44 Dose: 400 mls/hr Documented By: [facility] Piperacillin Sod/Tazobactam Sod (Zosyn) 4.5 gm in 100 mls @ 200 mls/hr IV NOW ONE Stop: 04/05/24 18:00 Last Infusion: 04/05/24 18:15 Dose: Infused Documented By: Admin: 04/05/24 17:45 Dose: 200 mls/hr Documented By: [facility] Sodium Chloride (Nss) 1,000 mls @ 999 mls/hr IV .Q1H1M SUPRIYA Stop: 04/05/24 19:45 Last Infusion: 04/05/24 19:45 Dose: Infused Documented By: Admin: 04/05/24 18:16 Dose: 999 mls/hr Documented By: Infusion: 04/05/24 18:15 Dose: Infused Documented By: Admin: 04/05/24 17:44 Dose: 999 mls/hr Documented By: [facility] Sodium Chloride (Nss) 500 mls @ 999 mls/hr IV .Q31M ONE Stop: 04/05/24 18:58 Last Infusion: 04/05/24 19:20 Dose: Infused Documented By: Admin: 04/05/24 18:52 Dose: 999 mls/hr Documented By: CARMEL Daptomycin 525 mg/ Syringe 10.5 mls @ 5.25 mls/min IV NOW STA; Protocol Stop: 04/05/24 19:28 Last Admin: 04/05/24 20:27 Dose: 5.25 mls/min Documented By: CARMEL Sodium Chloride (Nss) 500 mls @ 999 mls/hr IV .Q31M ONE Stop: 04/05/24 20:57 Last Infusion: 04/05/24 21:20 Dose: Infused Documented By: Admin: 04/05/24 20:46 Dose: 999 mls/hr Documented By: CARMEL Lidocaine HCl (Lidocaine 2% Jelly 5 Ml Tube) 5 ml EXT NOW ONE Stop: 04/05/24 17:32 Last Admin: 04/05/24 17:49 Dose: 5 ml Documented By: [facility] Imaging Data Radiologist's Impression: Chest X-Ray 04/05/24 17:31 EXAM: Radiograph of the Chest 1 View INDICATION: Sepsis. TECHNIQUE: Frontal view of the chest. COMPARISON: 11/27/2023 and 05/27/2022 FINDINGS: Lungs and pleural spaces: Stable chronic appearing airway thickening and basilar scarring. Probable left basilar pleural thickening on chronic effusion is unchanged. No pneumothorax. Heart: Stable large cardiac shadow. Mediastinum: Normal contour. Bones/joints: Degenerative changes noted in the scoliotic spine. No acute osseous abnormality noted. Soft tissues: No abnormality noted. No radiopaque foreign body noted. Upper abdomen: No abnormality noted. IMPRESSION: Stable chronic changes. No acute disease. ACT 112: Negative or not required by law. Electronically signed by Haleigh Garcia 04-05-2024 6:[address] 04/05/24 17:41 EXAM: CT Head Without Intravenous Contrast INDICATION: Altered mental status. TECHNIQUE: Axial computed tomography images of the head/brain without intravenous contrast. Sagittal and/or coronal reformats are provided. Sagittal and coronal reformatted images were created and reviewed. This CT exam was performed using one or more of the following dose reduction techniques: automated exposure control, adjustment of the mA and/or kV according to patient size, and/or use of iterative reconstruction technique. COMPARISON: 11/27/2023 FINDINGS: Limitations: Motion artifact slightly limits assessment. Brain and extra-axial spaces: There is age appropriate cortical atrophy and chronic ischemic periventricular white matter hypodensity. No acute infarct, hemorrhage or mass noted. Bones/joints: No acute changes. Soft tissues: No significant abnormality noted. Vasculature: No acute abnormality noted. Sinuses: No layering fluid in the visualized portions of the paranasal sinuses. Mastoid air cells: No mastoid effusion. Orbits: No significant abnormality noted. IMPRESSION: Slightly limiting motion artifact. Chronic changes. No acute abnormality noted. ACT 112: Negative or not required by law. Electronically signed by Haleigh Garcia 04-05-2024 6:52 PM Abdomen/Pelvis CT 04/05/24 17:47 EXAM: CT Abdomen and Pelvis Without Intravenous Contrast INDICATION: Pain. TECHNIQUE: Axial computed tomography images of the abdomen and pelvis without intravenous contrast. Sagittal and coronal reformatted images were created and reviewed. This CT exam was performed using one or more of the following dose reduction techniques: automated exposure control, adjustment of the mA and/or kV according to patient size, and/or use of iterative reconstruction technique. COMPARISON: 11/27/2023 FINDINGS: Limitations: Motion artifact limits assessment of intestinal loops. Lung bases: No abnormality noted. Pleural space: No visualized pleural effusion or pneumothorax. Heart: No abnormality noted. Mediastinum: No abnormality noted. ABDOMEN: Liver: The liver is enlarged measuring 26 cm long. Hypodensity noted typical of fatty replacement. Smooth cortical contour. No mass or ductal dilation. Gallbladder and bile ducts: Cholecystectomy. No ductal dilation or stone noted. Pancreas: No pancreatic mass, calcification, inflammation or ductal dilation noted. Spleen: No significant abnormality noted. Adrenals: No significant abnormality noted. Kidneys and ureters: No abnormality noted. No stones. No hydronephrosis. No significant perinephric fluid. Stomach and bowel: Allowing for limiting artifact, the intestinal loops appear normal. PELVIS: Appendix: Well seen and appears normal. Bladder: Urinary bladder is collapsed by catheter with the balloon inflated in the lumen. No stones. Reproductive: Prostate measures 4.8 x 4.9 x 4.8 cm. ABDOMEN and PELVIS: Intraperitoneal space: No free air. No significant fluid collection. Bones/joints: Degenerative changes noted throughout the spine. No acute osseous abnormality seen. Soft tissues: Small fat-containing left inguinal hernia stable. Vasculature: Atherosclerotic calcification of the aorta and branches. No aneurysm. Lymph nodes: No change prominent bilateral iliac nodes. IMPRESSION: Allowing for limitations, no acute abnormality. ACT 112: Negative or not required by law. Electronically signed by Haleigh Garcia 04-05-2024 6:57 PM Discharge Plan Visit Data Chief Complaint: Abdominal Pain Stated Complaint: AB PAIN, FALL ED Provider: Jayson Zepeda Discharge Problem: Sepsis, Elevated troponin, Hypotension, HESHAM (acute kidney injury), Dehydration, Leukocytosis, Elevated lactic acid level, Acute hyponatremia, Acute UTI Patient Disposition: Admitted As Inpatient Condition: Serious Discharge Problem: Sepsis Qualifiers: Sepsis type: sepsis due to unspecified organism Sepsis acute organ dysfunction status: with acute organ dysfunction Severe sepsis acute organ dysfunction type: acute renal failure Acute renal failure type: unspecified Severe sepsis shock status: with septic shock Qualified Code(s): A41.9 - Sepsis, unspecified organism Hypotension Qualifiers: Hypotension type: unspecified hypotension type Qualified Code(s): I95.9 - Hypotension, unspecified Leukocytosis Qualifiers: Leukocytosis type: unspecified Qualified Code(s): D72.829 - Elevated white blood cell count, unspecified
[2024-04-05] MEDS: SODIUM CHLORIDE 0.9% 1,000 ML IV SCH ×2 (17:44→20:47)
[2024-04-05] MEDS: ACETAMINOPHEN 1,000 MG/100 ML VIAL IV STA (17:44)
[2024-04-05] MEDS: PIPERACILLIN/TAZOBACTAM 4.5 GM/100 ML BAG IV ONE (17:45)
[2024-04-05] MEDS: LIDOCAINE 2% JELLY 5 ML TUBE EXT ONE (17:49)
[2024-04-05 17:56] LABS: iSTAT Creatinine 3.2 mg/dl (0.6-1.3); iSTAT Hemoglobin 13.3 g/dl (14.0-18.0); iSTAT Ionized Calcium 1.14 mmol/l (1.12-1.32); iSTAT Potassium 4.2 mmol/L (3.3-5.0)
[2024-04-05 18:11] LABS: Alanine Aminotransferase 36 U/L (7-52); Albumin Level 3.5 gm/dl (3.4-5.0); Alkaline Phosphatase 55 U/L (34-104); Anion Gap 11 (3-11); Aspartate Aminotransferase 40 U/L (13-39); BUN Creatinine Ratio 12.4 (10-20); Bilirubin Direct 0.1 mg/dl (0-0.2); Bilirubin,Total 0.8 mg/dl (0.2-1.0); Blood Urea Nitrogen 33 mg/dl (6-23); Calcium 9.2 mg/dl (8.6-10.3); Carbon Dioxide 21 mmol/L (21-32); Chloride 96 mmol/L (98-107); Glucose 106 mg/dl (70-99(Fasting)); Magnesium 1.9 mg/dl (1.7-2.4); Potassium 4.1 mmol/L (3.5-5.1); Sodium 128 mmol/L (136-145); Total Protein 8.4 gm/dl (6.0-8.3)
[2024-04-05 18:12] LABS: Hematocrit (blood only) 35.5 % (42.0-52.0); Hemoglobin 11.7 g/dl (14.0-18.0); Mean Corpuscular Hemoglobin 28.7 pg (25.0-34.0); Mean Corpuscular Volume 87.2 fL (80.0-100.0); Mean Platelet Volume 11.7 fL (9.4-12.4); Platelet Count 117 K/uL (130-400); RDW Coefficient of Variation 17.7 % (11.5-14.5); RDW Standard Deviation 55.8 fL (36.4-46.3); Red Blood Count 4.07 M/uL (4.70-6.10); White Blood Count 38.39 K/ul (4.8-10.8)
[2024-04-05 18:21] LABS: Troponin I High Sensitivity 216.4 pg/ml (0-20)
--- NOTE | 2024-04-05 18:21 | XRay Report ---
EXAM: Radiograph of the Chest 1 View INDICATION: Sepsis. TECHNIQUE: Frontal view of the chest. COMPARISON: 11/27/2023 and 05/27/2022 FINDINGS: Lungs and pleural spaces: Stable chronic appearing airway thickening and basilar scarring. Probable left basilar pleural thickening on chronic effusion is unchanged. No pneumothorax. Heart: Stable large cardiac shadow. Mediastinum: Normal contour. Bones/joints: Degenerative changes noted in the scoliotic spine. No acute osseous abnormality noted. Soft tissues: No abnormality noted. No radiopaque foreign body noted. Upper abdomen: No abnormality noted. IMPRESSION: Stable chronic changes. No acute disease. ACT 112: Negative or not required by law. Electronically signed by Haleigh Garcia 04-05-2024 6:21 PM
[2024-04-05 18:25] LABS: INR 1.2 (0.9-1.1); Partial Thromboplastin Ratio 1.2; Partial Thromboplastin Time 31 Seconds (21-31); Prothrombin Time 12.9 Seconds (9.0-12.0)
[2024-04-05 18:25] LABS: Base Excess VBG -3.3 mEq/L; HCO3 VBG 21 mmol/L; Oxygen Saturation VBG < 60.0 %; PCO2 VBG 36 mmHg (38-50); PO2 VBG 36 mmHg; pH VBG 7.38 (7.36-7.41)
[2024-04-05 18:27] LABS: Basophils # (auto) 0.07 K/uL (0.00-0.20); Basophils % (auto) 0.2 %; Dohle Bodies 1+; Eosinophils # (auto) 0.04 K/uL (0.00-0.50); Eosinophils % (auto) 0.1 %; Immature Granulocytes # (auto) 1.17 K/uL (0.01-0.20); Lymphocytes # (auto) 2.85 K/uL (1.20-3.40); Lymphocytes % (auto) 7.4 %; Monocytes # (auto) 2.96 K/uL (0.11-0.59); Monocytes % (auto) 7.7 %; Neutrophils % (auto) 81.6 %
[2024-04-05 18:41] LABS: Adenovirus PCR Not Detected (NotDetected); Bordetella parapertussis PCR Not Detected (NotDetected); Bordetella pertussis PCR Not Detected (NotDetected); Chlamydia pneumoniae PCR Not Detected (NotDetected); Coronavirus 229E PCR Not Detected (NotDetected); Coronavirus CoV-2 (COVID19)PCR Not Detected (NotDetected); Coronavirus HKU1 PCR Not Detected (NotDetected); Coronavirus NL63 PCR Not Detected (NotDetected); Coronavirus OC43PCR Not Detected (NotDetected); Human Metapneumovirus PCR Not Detected (NotDetected); Influenza A PCR Not Detected (NotDetected); Influenza B PCR Not Detected (NotDetected); Mycoplasma pneumoniae PCR Not Detected (NotDetected); Parainfluenza Virus 1 PCR Not Detected (NotDetected); Parainfluenza Virus 2 PCR Not Detected (NotDetected); Parainfluenza Virus 3 PCR Not Detected (NotDetected); Parainfluenza Virus 4 PCR Not Detected (NotDetected); Respiratory Syncytial VirusPCR Not Detected (NotDetected); Rhinovirus/Enterovirus PCR Not Detected (NotDetected)
[2024-04-05] MEDS: SODIUM CHLORIDE 0.9% 500 ML IV ONE ×2 (18:52→20:46)
--- NOTE | 2024-04-05 18:53 | CT Scan Report ---
EXAM: CT Head Without Intravenous Contrast INDICATION: Altered mental status. TECHNIQUE: Axial computed tomography images of the head/brain without intravenous contrast. Sagittal and/or coronal reformats are provided. Sagittal and coronal reformatted images were created and reviewed. This CT exam was performed using one or more of the following dose reduction techniques: automated exposure control, adjustment of the mA and/or kV according to patient size, and/or use of iterative reconstruction technique. COMPARISON: 11/27/2023 FINDINGS: Limitations: Motion artifact slightly limits assessment. Brain and extra-axial spaces: There is age appropriate cortical atrophy and chronic ischemic periventricular white matter hypodensity. No acute infarct, hemorrhage or mass noted. Bones/joints: No acute changes. Soft tissues: No significant abnormality noted. Vasculature: No acute abnormality noted. Sinuses: No layering fluid in the visualized portions of the paranasal sinuses. Mastoid air cells: No mastoid effusion. Orbits: No significant abnormality noted. IMPRESSION: Slightly limiting motion artifact. Chronic changes. No acute abnormality noted. ACT 112: Negative or not required by law. Electronically signed by Haleigh Garcia 04-05-2024 6:52 PM
--- NOTE | 2024-04-05 18:58 | CT Scan Report ---
EXAM: CT Abdomen and Pelvis Without Intravenous Contrast INDICATION: Pain. TECHNIQUE: Axial computed tomography images of the abdomen and pelvis without intravenous contrast. Sagittal and coronal reformatted images were created and reviewed. This CT exam was performed using one or more of the following dose reduction techniques: automated exposure control, adjustment of the mA and/or kV according to patient size, and/or use of iterative reconstruction technique. COMPARISON: 11/27/2023 FINDINGS: Limitations: Motion artifact limits assessment of intestinal loops. Lung bases: No abnormality noted. Pleural space: No visualized pleural effusion or pneumothorax. Heart: No abnormality noted. Mediastinum: No abnormality noted. ABDOMEN: Liver: The liver is enlarged measuring 26 cm long. Hypodensity noted typical of fatty replacement. Smooth cortical contour. No mass or ductal dilation. Gallbladder and bile ducts: Cholecystectomy. No ductal dilation or stone noted. Pancreas: No pancreatic mass, calcification, inflammation or ductal dilation noted. Spleen: No significant abnormality noted. Adrenals: No significant abnormality noted. Kidneys and ureters: No abnormality noted. No stones. No hydronephrosis. No significant perinephric fluid. Stomach and bowel: Allowing for limiting artifact, the intestinal loops appear normal. PELVIS: Appendix: Well seen and appears normal. Bladder: Urinary bladder is collapsed by catheter with the balloon inflated in the lumen. No stones. Reproductive: Prostate measures 4.8 x 4.9 x 4.8 cm. ABDOMEN and PELVIS: Intraperitoneal space: No free air. No significant fluid collection. Bones/joints: Degenerative changes noted throughout the spine. No acute osseous abnormality seen. Soft tissues: Small fat-containing left inguinal hernia stable. Vasculature: Atherosclerotic calcification of the aorta and branches. No aneurysm. Lymph nodes: No change prominent bilateral iliac nodes. IMPRESSION: Allowing for limitations, no acute abnormality. ACT 112: Negative or not required by law. Electronically signed by Haleigh Garcia 04-05-2024 6:57 PM
[2024-04-05 19:16] LABS: Appearance Urine Turbid (Clear); Bacteria Urine Automated 3+ (None Seen); Bilirubin Urine 1+ (Negative); Blood Urine 3+ (Negative); Color Urine Dark Yellow; Epithelial Cell Urine Auto >20 /hpf (0-2); Glucose Urine UA Trace (Negative); Ketones Urine Trace (Negative); Leukocyte Esterase Urine 2+ (Negative); Nitrite Urine Negative (Negative); Protein Urine 2+ (Negative); RBC Urine Automated >20 /hpf (0-2); Specific Gravity Urine 1.023 (1.000-1.030); Urobilinogen Urine Negative (Negative); WBC Urine Automated >50 /hpf (0-5)
[2024-04-05] MEDS: DAPTOmycin 525 MG in SYRINGE 0 ML IV STA (20:27)
[2024-04-05] MEDS ORDERED: CARBOHYDRATES FOR HYPOGLYCEMIA PO PRN (23:13)
[2024-04-05] MEDS ORDERED: DEXTROSE 50% 50 ML SYRINGE IV PRN (23:13)
[2024-04-05] MEDS ORDERED: GLUCOSE 10 TAB/TUBE PO PRN (23:13)
[2024-04-05] MEDS ORDERED: GLUCOSE 40% GEL 15 GM TUBE PO PRN (23:13)
[2024-04-05] MEDS ORDERED: NITROGLYCERIN SL 0.4 MG/TAB TAB SL PRN (23:13)
[2024-04-05] MEDS ORDERED: GLUCAGON FOR INJ 1 MG VIAL SQ PRN (23:13)
[2024-04-05] MEDS: HEPARIN SOD 5,000 UNIT/0.5 ML VIAL SQ SCH (23:48)
[2024-04-05] MEDS: INSULIN ASPART PER UNIT CHARGE SC SCH (23:51)
[2024-04-06] MEDS: PIPERACILLIN/TAZOBACTAM 4.5 GM/100 ML BAG IV SCH (00:51)
[2024-04-06] MEDS: LEVOTHYROXINE SODIUM 100 MCG TABLET PO SCH (04:38)
[2024-04-06] MEDS: PANTOprazole 40 MG TAB PO SCH (04:39)
--- NOTE | 2024-04-06 05:53 | History & Physical Report ---
Date of Service April 05, 2024 Assessment & Plan (1) Severe sepsis: Plan: 68-year-old male comes from [facility] with past medical significant for dyslipidemia, type 2 diabetes, history of CAD, history of systolic and diastolic CHF EF 45% echo 2018 and EF 50 to 50% on echo done in 2022, history of spina bifida, history of mild intellectual disability, impulsive disorder, generalized disorder, depression, hypothyroidism, GERD, BPH, history of prior hepatitis B infection, CKD,presents with severe sepsis and UTI and HESHAM. As per caregiver in the room since yesterday evening patient is not eating much. Last night he could not sleep which is not unusual for him and today was sleeping more which was also not unusual. Patient is mostly wheelchair-bound. He can transfer to the wheelchair. He is complaining of abdominal pain today and he had a fall onto his buttock today. Because of the weakness and poor appetite and fall he was brought to the hospital. In the ER he was spiking temperature 103 degrees and blood pressure systolic in 70s . With the fluids blood pressure improved. Lactic acid was 3.3 and repeat is 1.8. Sodium 128. Creatinine 2.6. VBG was okay. WBC 38. Initial troponin 216 and repeat 158 UA was positive, respiratory bio fire negative. Patient is currently very drowsy. When aroused can tell his name and knows that he is in the hospital but could not tell the date. Goes back to sleep. Denies any chest pain, denies abdominal pain. Denies nausea. Could not get much history from the patient. Patient has intellectual disability but able to converse okay though sometimes difficult to understand as per the caregiver. Severe sepsis Acute UTI Acute encephalopathy mostly from sepsis Significant leukocytosis CT head okay Chest x-ray okay UA is positive Presented with hypotension and fevers Blood pressure improved with fluids Initial lactic acid 3.3 and repeat is 1.8 Received IV daptomycin and Zosyn which will be continued Continue IV fluids Will follow cultures Close monitor hemodynamics Telemetry Chronic systolic and diastolic CHF EF 50 to 55% on echo in 2022 Holding Lasix Getting fluids monitor for volume overload Elevated troponin Initial troponin 216 repeat is 158 Mostly demand ischemia from sepsis We will follow serial enzymes and echo Cardiac consult in a.m. Close monitor Hyponatremia Sodium of 128 Will follow repeat labs HESHAM Presented with creatinine of 2.6 Baseline creatinine 1 Status post Lehman in the ER CT abdomen pelvis no acute findings Avoid nephrotoxic agents Closely monitor repeat labs Diabetes Hold home p.o. medications Sliding scale Close monitor Follow HbA1c levels Hypertension Holding Coreg and lisinopril for now as patient is in sepsis Restart when blood pressure comes up Hypothyroidism On Synthyroid Follow TSH GERD On omeprazole History of depression General Anxiety disorder Compulsive disorder mild intellectual disability On venlafaxine and divalproex ,buspirone ,bupropion ,Abilify and doxepin Holding risperidone and Seroquel for now, restart when patient is more awake CAD On aspirin Restart beta-kenyatta when blood pressure comes up. History of BPH Not on meds Status post lehman in the ER Thrombocytopenia Platelets 117 Chronic Will monitor Anemia Chronic Hemoglobin 11.7 Will follow labs History of spina bifida DVT prophylaxis Heparin subcu Monitor platelets Disposition Telemetry CODE STATUS full code as per my discussion with caregiver. But in the documents there is a POLST form for DNR/DNI. Needs to rediscuss with caregiver History of Present Illness Chief Complaint: Severe sepsis and UTI Primary Care Provider: Tim Swenson DO 68-year-old male comes from [facility] with past medical significant for dyslipidemia, type 2 diabetes, history of CAD, history of systolic and diastolic CHF EF 45% echo 2018 and EF 50 to 50% on echo done in 2022, history of spina bifida, history of mild intellectual disability, impulsive disorder, generalized disorder, depression, hypothyroidism, GERD, BPH, history of prior hepatitis B infection, CKD,presents with severe sepsis and UTI and HESHAM. As per caregiver in the room since yesterday evening patient is not eating much. Last night he could not sleep which is not unusual for him and today was sleeping more which was also not unusual. Patient is mostly wheelchair-bound. He can transfer to the wheelchair. He is complaining of abdominal pain today and he had a fall onto his buttock today. Because of the weakness and poor appetite and fall he was brought to the hospital. In the ER he was spiking temperature 103 degrees and blood pressure systolic in 70s . With the fluids blood pressure improved. Lactic acid was 3.3 and repeat is 1.8. Sodium 128. Creatinine 2.6. VBG was okay. WBC 38. Initial troponin 216 and repeat 158 UA was positive, respiratory bio fire negative. Patient is currently very drowsy. When aroused can tell his name and knows that he is in the hospital but could not tell the date. Goes back to sleep. Denies any chest pain, denies abdominal pain. Denies nausea. Could not get much history from the patient. Patient has intellectual disability but able to converse okay though sometimes difficult to understand as per the caregiver. Past medical history. As mentioned above Past surgical history. Bilateral alveloplasty. Colonoscopy. EGD. EGD with endoscopic ultrasound. Surgical extraction of ruptured tooth. Social history. No smoking. No alcoholism. No drug use. Family history. Mother had diabetes. Heart disorder. Father had heart disorder. Maternal grandfather had stroke. Maternal grandmother had stroke. Allergies Allergy/AdvReac Type Severity Reaction Status Date / Time terbinafine Allergy Mild RASH ON Verified 07/23/22 08:56 ARM? Home Medications Medication Instructions Recorded Confirmed Type sennosides 8.6 mg tablet (senna) 8.6 mg PO .DAILY@0800,1800 09/21/18 04/05/24 History lancets (Lancets,Thin) #50 ea 11/07/19 04/05/24 Rx bupropion HCl 300 mg 24 hr tablet, 300 mg PO .DAILY @0805/05/20 04/05/24 History extended release aspirin 81 mg chewable tablet 81 mg PO .DAILY @79906/09/20 04/05/24 History aripiprazole 15 mg tablet (Abilify) 15 mg PO .DAILY @ 0807/31/20 04/05/24 History buspirone 15 mg tablet 15 mg PO .DAILY @ 0800,1800 07/31/20 04/05/24 History quetiapine 50 mg tablet (Seroquel) 50 mg PO .[id number],1400,1800 07/31/20 04/05/24 History doxepin 10 mg capsule 10 mg PO .DAILY @179902/07/21 04/05/24 History omeprazole 40 mg capsule,delayed 40 mg PO .DAILY@0805/21/21 04/05/24 History release divalproex 500 mg tablet,extended 1,500 mg PO UD 04/11/22 04/05/24 History release 24 hr multivitamin (Daily-Ezekiel tablet) 1 tab PO .DAILY @ 79904/11/22 04/05/24 History risperidone 0.25 mg tablet 0.25 mg PO .DAILY@0804/11/22 04/05/24 History venlafaxine 37.5 mg 37.5 mg PO .DAILY@0804/11/22 04/05/24 History capsule,extended release 24 hr venlafaxine 75 mg capsule,extended 75 mg PO .DAILY@0804/11/22 04/05/24 History release 24 hr furosemide 40 mg tablet 40 mg PO .DAILY @0807/16/22 04/05/24 History lisinopril 10 mg tablet 10 mg PO .DAILY@0807/16/22 04/05/24 History carvedilol 25 mg tablet 25 mg PO .DAILY @ 0800,1800 12/15/22 04/05/24 History empagliflozin 25 mg tablet 25 mg PO .DAILY@0812/15/22 04/05/24 History (Jardiance) glimepiride 2 mg tablet 2 mg PO .DAILY@0812/15/22 04/05/24 History levothyroxine 100 mcg tablet 100 mcg PO .DAILY@0712/15/22 04/05/24 History sucralfate 1 gram tablet 1 g PO .DAILY@79911/27/23 04/05/24 History Past Med/Surg History Problem List (Updated 04/06/24 @ 06:13 by Tha Hernandez MD) Severe sepsis Acute UTI (Acute) Acute hyponatremia (Acute) Elevated lactic acid level (Acute) Leukocytosis (Acute) Dehydration (Acute) HESHAM (acute kidney injury) (Acute) Hypotension (Acute) Elevated troponin (Acute) Sepsis (Acute) Back pain Closed L2 vertebral fracture (Acute) Pulmonary edema (Acute) Pneumonitis (Acute) Lactic acidemia (Acute) Contrast dye induced nephropathy Acute renal insufficiency Elevated troponin Chronic heart failure with reduced ejection fraction and diastolic dysfunction Elevated troponin I level Acute respiratory failure with hypoxia Influenza A (Acute) Low oxygen saturation Respiratory distress Hypertension (Acute) Intellectual disability (Acute) Acute kidney failure Aspiration into airway (Acute) Airway clearance impairment (Acute) Encounter for pre-operative examination Congestive heart failure (CHF) Acute respiratory failure with hypoxia Aspiration pneumonia DVT prophylaxis Discharge planning issues Psychiatric disorder Intermittent explosive disorder Anxiety disorder, unspecified Depression Oral candidiasis Weakness (Acute) DVT prophylaxis CHF (congestive heart failure) Sepsis (Acute) Severe sepsis Abdominal pain Cholelithiasis Encounter for pre-operative examination History of laparoscopic cholecystectomy Laparoscopic cholecystectomy [address] Wolff Vocal cord paralysis, unilateral complete H/O tooth extraction Coronary artery disease (Chronic) GERD (gastroesophageal reflux disease) (Chronic) Medical History Thrombocytopenia Chronic thrombocytopenia, baseline platelets low 100s per chart review Obesity Cerebral palsy Moderate intellectual disabilities sister/POA -ASHLEY IRENE [phone]-[facility] 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 SIGNS CONSENTS Anemia MRSA (methicillin resistant Staphylococcus aureus) carrier Dysphagia Keratoconus Cataract Arthritis Spina bifida Hypothyroidism Diabetes mellitus, type 2 Chronic ischemic heart disease Hyperlipidemia Hypertension Intermittent explosive disorder Impulse control disorder Severe anxiety Combative behavior Fall Fall risk Surgical History History of esophagogastroduodenoscopy (EGD) History of colonoscopy EGD/colonoscopy (12/07/19): MAC sedation at [facility] History of bronchoscopy Flexible bronchoscopy with BAL (02/04/18): Grade view 1, Elective glidescope #4, ETT 8.5 at [facility] (done for aspiration PNA) Family History Other No significant family history Social History Smoking Status: Never smoker Second Hand Exposure: No; Do You Dip or Chew Tobacco: No; Hx Alcohol Use: No Hx Substance Use: No Preferred Language: Portuguese Communication Ability: Effective Communication Ability Comment: PT 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 Head- atraumatic Eyes- PERRL. ENT- oropharynx clear Neck- supple, no JVD. Lungs- clear to auscultation no wheezing or crackles. Heart- regular rhythm; no murmur, no gallop. Abdomen- normal bowel sounds, soft, nontender, no distension Extremities- no pretibial edema, no erythema seen Neuro- Drowsy oriented x2 ; PERRL, no facial palsy; no dysarthria; Results & Data Results & Data Vital Signs (Past 12 Hours) Vital Signs Temp Pulse Pulse Resp BP BP Pulse Ox 04/05/24 20:30 37.1 C 74 20 97/53 L 94 04/05/24 19:00 20 100/54 L 93 04/05/24 18:12 91 H 22 111/57 L 04/05/24 18:07 94 H 12 95 04/05/24 18:07 39.5 C H 94 H 20 52/44 L 96 04/05/24 17:51 88 17 92 04/05/24 17:45 85/65 L 04/05/24 17:42 93 H 23 04/05/24 17:39 93 H 22 04/05/24 17:35 39.5 C H 04/05/24 17:30 75/33 L 04/05/24 17:30 94 H 04/05/24 17:28 52/40 L O2 Del Method 04/05/24 20:30 Room Air 04/05/24 19:00 Room Air 04/05/24 18:12 04/05/24 18:07 Room Air 04/05/24 18:07 Room Air 04/05/24 17:51 Room Air 04/05/24 17:45 04/05/24 17:42 04/05/24 17:39 04/05/24 17:35 04/05/24 17:30 04/05/24 17:30 04/05/24 17:28 Diagnostic Findings Laboratory Results WBC 38.39 K/ul (4.8-10.8) H* 04/05/24 17:40 RBC 4.07 M/uL (4.70-6.10) L 04/05/24 17:40 Hgb 11.7 g/dl (14.0-18.0) L 04/05/24 17:40 POC Hgb 13.3 g/dl (14.0-18.0) L 04/05/24 17:44 Hct 35.5 % (42.0-52.0) L 04/05/24 17:40 POC Hct 39 % (42-52) L 04/05/24 17:44 MCV 87.2 fL (80.0-100.0) 04/05/24 17:40 MCH 28.7 pg (25.0-34.0) 04/05/24 17:40 MCHC 33.0 g/dL (32.0-36.0) 04/05/24 17:40 RDW Std Deviation 55.8 fL (36.4-46.3) H 04/05/24 17:40 RDW Coeff of Josiah 17.7 % (11.5-14.5) H 04/05/24 17:40 Plt Count 117 K/uL (130-400) L 04/05/24 17:40 MPV 11.7 fL (9.4-12.4) 04/05/24 17:40 Immature Gran % (Auto) 3.0 % 04/05/24 17:40 Neut % (Auto) 81.6 % 04/05/24 17:40 Lymph % (Auto) 7.4 % 04/05/24 17:40 Woods % (Auto) 7.7 % 04/05/24 17:40 Eos % (Auto) 0.1 % 04/05/24 17:40 Baso % (Auto) 0.2 % 04/05/24 17:40 Neut # (Auto) 31.30 K/uL (1.40-6.50) H 04/05/24 17:40 Lymph # (Auto) 2.85 K/uL (1.20-3.40) 04/05/24 17:40 Woods # (Auto) 2.96 K/uL (0.11-0.59) H 04/05/24 17:40 Eos # (Auto) 0.04 K/uL (0.00-0.50) 04/05/24 17:40 Baso # (Auto) 0.07 K/uL (0.00-0.20) 04/05/24 17:40 Immature Gran # (Auto) 1.17 K/uL (0.01-0.20) H 04/05/24 17:40 Dohle Bodies 1+ 04/05/24 17:40 PT 12.9 Seconds (9.0-12.0) H 04/05/24 17:40 INR 1.2 (0.9-1.1) H 04/05/24 17:40 APTT 31 Seconds (21-31) 04/05/24 17:40 PTT Ratio 1.2 04/05/24 17:40 VBG pH 7.38 (7.36-7.41) 04/05/24 18:14 VBG pCO2 36 mmHg (38-50) L 04/05/24 18:14 VBG pO2 36 mmHg 04/05/24 18:14 VBG HCO3 21 mmol/L 04/05/24 18:14 VBG O2 Saturation < 60.0 % 04/05/24 18:14 VBG Base Excess -3.3 mEq/L 04/05/24 18:14 POC Sodium 132 mmol/L (135-144) L 04/05/24 17:44 Sodium 128 mmol/L (136-145) L 04/05/24 17:40 POC Potassium 4.2 mmol/L (3.3-5.0) 04/05/24 17:44 Potassium 4.1 mmol/L (3.5-5.1) 04/05/24 17:40 POC Chloride 98 mmol/L (101-112) L 04/05/24 17:44 Chloride 96 mmol/L (98-107) L 04/05/24 17:40 Carbon Dioxide 21 mmol/L (21-32) 04/05/24 17:40 POC Total CO2 21 mmol/L (24-31) L 04/05/24 17:44 Anion Gap 11 (3-11) 04/05/24 17:40 POC Anion Gap 19.0 mmol/L (16-25) 04/05/24 17:44 POC BUN 34 mg/dl (7-18) H 04/05/24 17:44 BUN 33 mg/dl (6-23) H 04/05/24 17:40 Creatinine 2.67 mg/dl (0.6-1.4) H 04/05/24 17:40 POC Creatinine 3.2 mg/dl (0.6-1.3) H 04/05/24 17:44 Est Cr Clr Drug Dosing Not Reportable 04/05/24 17:40 eGFR 25.54 04/05/24 17:40 BUN/Creatinine Ratio 12.4 (10-20) 04/05/24 17:40 Glucose 106 mg/dl (70-99(Fasting)) H 04/05/24 17:40 POC Glucose 73 mg/dl (70-99) 04/06/24 05:44 POC Glucose (other) 106 mg/dl (70-99) H 04/05/24 17:44 Lactate 1.8 mmol/L (0.4-2.0) 04/05/24 19:34 Calcium 9.2 mg/dl (8.6-10.3) 04/05/24 17:40 POC Ioniz Calcium Giselle 1.14 mmol/l (1.12-1.32) 04/05/24 17:44 Magnesium 1.9 mg/dl (1.7-2.4) 04/05/24 17:40 Total Bilirubin 0.8 mg/dl (0.2-1.0) 04/05/24 17:40 Direct Bilirubin 0.1 mg/dl (0-0.2) 04/05/24 17:40 AST 40 U/L (13-39) H 04/05/24 17:40 ALT 36 U/L (7-52) 04/05/24 17:40 Alkaline Phosphatase 55 U/L (34-104) 04/05/24 17:40 Troponin I High Sens 158.7 pg/ml (0-20) H* D 04/05/24 19:34 Total Protein 8.4 gm/dl (6.0-8.3) H 04/05/24 17:40 Albumin 3.5 gm/dl (3.4-5.0) 04/05/24 17:40 Procalcitonin 22.60 ng/ml (0-0.5) H 04/05/24 17:40 Urine Color Dark Yellow 04/05/24 18:20 Urine Appearance Turbid (Clear) A 04/05/24 18:20 Urine pH 5.0 (4.5-7.5) 04/05/24 18:20 Ur Specific [place] 1.023 (1.000-1.030) 04/05/24 18:20 Urine Protein 2+ (Negative) H 04/05/24 18:20 Urine Glucose (UA) Trace (Negative) H 04/05/24 18:20 Urine Ketones Trace (Negative) H 04/05/24 18:20 Urine Blood 3+ (Negative) H 04/05/24 18:20 Urine Nitrite Negative (Negative) 04/05/24 18:20 Urine Bilirubin 1+ (Negative) H 04/05/24 18:20 Urine Urobilinogen Negative (Negative) 04/05/24 18:20 Ur Leukocyte Esterase 2+ (Negative) H 04/05/24 18:20 Urine WBC (Auto) >50 /hpf (0-5) H 04/05/24 18:20 Urine RBC (Auto) >20 /hpf (0-2) H 04/05/24 18:20 U Hyaline Cast (Auto) 3-5 /lpf (0-2) H 04/05/24 18:20 U Epithel Cells (Auto) >20 /hpf (0-2) H 04/05/24 18:20 Urine Bacteria (Auto) 3+ (None Seen) H 04/05/24 18:20 Nasal Screen MRSA (PCR) Negative (Negative) 04/06/24 Unknown Adenovirus (PCR) Not Detected (NotDetected) 04/05/24 17:45 B. pertussis DNA (PCR) Not Detected (NotDetected) 04/05/24 17:45 B.parapertussis DNA PCR Not Detected (NotDetected) 04/05/24 17:45 C. pneumoniae DNA (PCR) Not Detected (NotDetected) 04/05/24 17:45 Coronavirus OC43 (PCR) Not Detected (NotDetected) 04/05/24 17:45 Coronavirus HKU1 (PCR) Not Detected (NotDetected) 04/05/24 17:45 Coronavirus 229E (PCR) Not Detected (NotDetected) 04/05/24 17:45 SARS-CoV-2 (PCR) Not Detected (NotDetected) 04/05/24 17:45 Coronavirus NL63 (PCR) Not Detected (NotDetected) 04/05/24 17:45 Human Metapneumovir PCR Not Detected (NotDetected) 04/05/24 17:45 Influenza Type A (PCR) Not Detected (NotDetected) 04/05/24 17:45 Influenza Type B (PCR) Not Detected (NotDetected) 04/05/24 17:45 M. pneumoniae (PCR) Not Detected (NotDetected) 04/05/24 17:45 Parainfluenza 1 (PCR) Not Detected (NotDetected) 04/05/24 17:45 Parainfluenza 2 (PCR) Not Detected (NotDetected) 04/05/24 17:45 Parainfluenza 3 (PCR) Not Detected (NotDetected) 04/05/24 17:45 Parainfluenza 4 (PCR) Not Detected (NotDetected) 04/05/24 17:45 RSV (PCR) Not Detected (NotDetected) 04/05/24 17:45 Entero/Rhino (PCR) Not Detected (NotDetected) 04/05/24 17:45 Impressions Chest X-Ray 04/05/24 17:31 EXAM: Radiograph of the Chest 1 View INDICATION: Sepsis. TECHNIQUE: Frontal view of the chest. COMPARISON: 11/27/2023 and 05/27/2022 FINDINGS: Lungs and pleural spaces: Stable chronic appearing airway thickening and basilar scarring. Probable left basilar pleural thickening on chronic effusion is unchanged. No pneumothorax. Heart: Stable large cardiac shadow. Mediastinum: Normal contour. Bones/joints: Degenerative changes noted in the scoliotic spine. No acute osseous abnormality noted. Soft tissues: No abnormality noted. No radiopaque foreign body noted. Upper abdomen: No abnormality noted. IMPRESSION: Stable chronic changes. No acute disease. ACT 112: Negative or not required by law. Electronically signed by Haleigh Garcia 04-05-2024 6:[address] 04/05/24 17:41 EXAM: CT Head Without Intravenous Contrast INDICATION: Altered mental status. TECHNIQUE: Axial computed tomography images of the head/brain without intravenous contrast. Sagittal and/or coronal reformats are provided. Sagittal and coronal reformatted images were created and reviewed. This CT exam was performed using one or more of the following dose reduction techniques: automated exposure control, adjustment of the mA and/or kV according to patient size, and/or use of iterative reconstruction technique. COMPARISON: 11/27/2023 FINDINGS: Limitations: Motion artifact slightly limits assessment. Brain and extra-axial spaces: There is age appropriate cortical atrophy and chronic ischemic periventricular white matter hypodensity. No acute infarct, hemorrhage or mass noted. Bones/joints: No acute changes. Soft tissues: No significant abnormality noted. Vasculature: No acute abnormality noted. Sinuses: No layering fluid in the visualized portions of the paranasal sinuses. Mastoid air cells: No mastoid effusion. Orbits: No significant abnormality noted. IMPRESSION: Slightly limiting motion artifact. Chronic changes. No acute abnormality noted. ACT 112: Negative or not required by law. Electronically signed by Haleigh Garcia 04-05-2024 6:52 PM Abdomen/Pelvis CT 04/05/24 17:47 EXAM: CT Abdomen and Pelvis Without Intravenous Contrast INDICATION: Pain. TECHNIQUE: Axial computed tomography images of the abdomen and pelvis without intravenous contrast. Sagittal and coronal reformatted images were created and reviewed. This CT exam was performed using one or more of the following dose reduction techniques: automated exposure control, adjustment of the mA and/or kV according to patient size, and/or use of iterative reconstruction technique. COMPARISON: 11/27/2023 FINDINGS: Limitations: Motion artifact limits assessment of intestinal loops. Lung bases: No abnormality noted. Pleural space: No visualized pleural effusion or pneumothorax. Heart: No abnormality noted. Mediastinum: No abnormality noted. ABDOMEN: Liver: The liver is enlarged measuring 26 cm long. Hypodensity noted typical of fatty replacement. Smooth cortical contour. No mass or ductal dilation. Gallbladder and bile ducts: Cholecystectomy. No ductal dilation or stone noted. Pancreas: No pancreatic mass, calcification, inflammation or ductal dilation noted. Spleen: No significant abnormality noted. Adrenals: No significant abnormality noted. Kidneys and ureters: No abnormality noted. No stones. No hydronephrosis. No significant perinephric fluid. Stomach and bowel: Allowing for limiting artifact, the intestinal loops appear normal. PELVIS: Appendix: Well seen and appears normal. Bladder: Urinary bladder is collapsed by catheter with the balloon inflated in the lumen. No stones. Reproductive: Prostate measures 4.8 x 4.9 x 4.8 cm. ABDOMEN and PELVIS: Intraperitoneal space: No free air. No significant fluid collection. Bones/joints: Degenerative changes noted throughout the spine. No acute osseous abnormality seen. Soft tissues: Small fat-containing left inguinal hernia stable. Vasculature: Atherosclerotic calcification of the aorta and branches. No aneurysm. Lymph nodes: No change prominent bilateral iliac nodes. IMPRESSION: Allowing for limitations, no acute abnormality. ACT 112: Negative or not required by law. Electronically signed by Haleigh Garcia 04-05-2024 6:57 PM ECG Additional Comments: ECG. Normal sinus rhythm rate of 89. Nonspecific T wave abnormality in lateral leads. QTc 472 Code Status & VTE Plan VTE Prophylaxis Plan VTE Prophylaxis will be ordered: Yes
[2024-04-06 07:26] LABS: Creatinine Clr Calc Pharmacy 46.1 ml/min; Magnesium 1.9 mg/dl (1.7-2.4); Phosphorus 3.2 mg/dl (2.5-4.9); Potassium 3.8 mmol/L (3.5-5.1)
[2024-04-06] MEDS: ASPIRIN 81 MG ECTAB PO SCH (07:26)
[2024-04-06] MEDS: buPROPion XL 300 MG TABCR PO SCH (07:26)
[2024-04-06] MEDS: SUCRALFATE 1 GM TAB PO SCH (07:27)
[2024-04-06] MEDS: VENLAFAXINE HCL XR 37.5 MG CAPXR PO SCH (07:27)
[2024-04-06] MEDS: ARIPiprazole 15 MG TAB PO SCH (07:27)
[2024-04-06] MEDS: MULTIVITAMIN TAB PO SCH (07:27)
[2024-04-06] MEDS: busPIRone 15 MG TAB PO SCH (07:27)
[2024-04-06] MEDS: VENLAFAXINE HCL XR 75 MG CAPXR PO SCH (07:27)
[2024-04-06 07:34] LABS: Estimated Average Glucose 146 mg/dl; Hemoglobin A1C 6.7 % (4.5-5.6)
[2024-04-06 07:35] LABS: Troponin I High Sensitivity 97.3 pg/ml (0-20)
[2024-04-06 07:43] LABS: Basophils # (auto) 0.04 K/uL (0.00-0.20); Basophils % (auto) 0.2 %; Eosinophils # (auto) 0.02 K/uL (0.00-0.50); Eosinophils % (auto) 0.1 %; Hematocrit (blood only) 31.8 % (42.0-52.0); Hemoglobin 10.5 g/dl (14.0-18.0); Immature Granulocytes % (auto) 1.6 %; Lymphocytes # (auto) 1.55 K/uL (1.20-3.40); Lymphocytes % (auto) 6.1 %; Mean Corpuscular Volume 87.8 fL (80.0-100.0); Mean Platelet Volume 11.7 fL (9.4-12.4); Monocytes # (auto) 1.63 K/uL (0.11-0.59); Monocytes % (auto) 6.4 %; Neutrophils # (auto) 21.77 K/uL (1.40-6.50); Neutrophils % (auto) 85.6 %; Platelet Count 92 K/uL (130-400); Polychromasia 1+; RDW Coefficient of Variation 17.8 % (11.5-14.5); RDW Standard Deviation 57.3 fL (36.4-46.3); Red Blood Count 3.62 M/uL (4.70-6.10); Tear Drop Cells 1+; Toxic Vacuolation 1+; White Blood Count 25.41 K/ul (4.8-10.8)
--- NOTE | 2024-04-06 09:21 | Electrocardiogram Report ---
Test Reason : Blood Pressure : */* mmHG Vent. 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
[2024-04-06] MEDS ORDERED: Nursing to Pharmacy Communication SCH (10:00)
--- NOTE | 2024-04-06 10:36 | Communication Note ---
Date of Service: April 06, 2024 Patient chart records and admission data reviewed. 68-year-old male admitted with sepsis process. Mildly elevated troponin likely demand based. Patient combative and refuses examination. Limited echocardiogram as noted secondary to uncooperative patient. Would continue to treat as doing. Contact with repeat consult if Required
[2024-04-06] MEDS: INSULIN ASPART PER UNIT CHARGE SC SCH (12:23)
[2024-04-06] MEDS: OLANZapine 10 MG/2.1 ML SDV IM PRN (12:54)
[2024-04-06] MEDS: DOXEPIN HCL 10 MG CAPSULE PO SCH (18:06)
[2024-04-06] MEDS: DIVALPROEX EXTENDED RELEASE 500 MG TAB PO SCH (18:06)
--- NOTE | 2024-04-06 18:25 | Hospitalist Progress Note ---
Date of Service April 06, 2024 Assessment & Plan (1) Severe sepsis: Plan: 68 yo M from [place] w/ PMH of dyslipidemia, type 2 diabetes, CAD, systolic and diastolic CHF [EF 45% echo 2018 and EF 50 to 50% on echo done in 2022], spina bifida, mild intellectual disability, impulsive disorder, generalized disorder, depression, hypothyroidism, GERD, BPH, hepatitis B infection, CKD presents with altered behavior and noted to have severe sepsis iso UTI and HESHAM. Patient is mostly wheelchair-bound. He can transfer to the wheelchair. He fell onto his buttock [employer]. Because of the weakness and poor appetite and fall he was brought to the hospital. In the ER he was spiking temperature 103 degrees and blood pressure systolic in 70s . Patient has intellectual disability but able to converse okay though sometimes difficult to understand as per the caregiver. He is being managed for the following: Severe sepsis POA ISO acute UTI Acute UTI Acute metabolic encephalopathy mostly from sepsis: currently agitated and attempting to remove med equip per RN. will use soft restraint to UE. Lactate, pulse, temperature, WBC elevated at presentation. UA suggestive of UTI. Respiratory BioFire negative, CXR with no acute finding, CT head with no acute finding. Status post IV antibiotic and IV fluid in the ED with improvement. Lactate trended down to normal. Continue with IV daptomycin and Zosyn 04/05. Continue with IV fluids for now. Follow admitting blood and urine culture. Likely demand ischemia: Troponin elevated at 216 at presentation, down trended. Patient with no chest pain. EKG with no acute ST or T changes. Patient did not cooperate with echo fully, ejection fraction 55 to 60%, there is hypokinesis of the apical and mid septum on views obtained. Cardiology evaluated, appr kaylynn. Will continue telemetry monitoring for now, continue to monitor patient. Hyponatremia: Admitting sodium of 128 at presentation, Improved to 133 today. likely secondary to poor p.o. intake prior to arrival. Repeat sodium in AM. Acute kidney injury: Admitting creatinine of 2.6, baseline creatinine of 1. Status post Alfred catheter in the ED, status post IV fluid. CT abdomen pelvis with no acute finding. Creatinine improving. Likely prerenal secondary to poor p.o. intake prior to arrival. Avoid nephrotoxic's, labs in AM. c/w ivf. Other chronic medical conditions: Continue with/resume home meds as and when able. Chronic systolic and diastolic CHF: EF of 50 to 55% from echo 2022. Lasix on hold due to need for IV fluid resuscitation secondary to severe sepsis. Diabetes mellitus: Sliding scale insulin while in hospital. A1c of 6.7 this admission. Hypertension: Holding blood pressure medication due to soft blood pressure secondary to sepsis. Resume as able. Hypothyroidism: Continue Synthroid. GERD: Continue home PPI. Depression, JEAN, compulsive disorder with mild intellectual disability: Continue home venlafaxine, divalproex, buspirone, bupropion, Abilify, doxepin. Resume risperidone and Seroquel once mentation Becomes stable and improved. CAD: Continue with home aspirin and beta-kenyatta. BPH: Status post Alfred in the ED. Thrombocytopenia: Chronic, stable. Anemia: Chronic, stable. History of spina bifida DVT prophylaxis: Heparin subcu, monitor platelets. Disposition: Telemetry. PT/OT. CM to assist with DC planning. CODE STATUS: as per prior attending, full code as per my discussion with home care giver. But in the documents there is a POLST form for DNR/DNI. Needs to rediscuss with caregiver. Will rediscuss w/ caregivers in AM. Admission and Anticipated Discharge Date Admission Date: April 05, 2024 Subjective Patient was seen and examined at bedside. Patient was lying in bed, on room air, NAD, resting comfortably. Per RN, patient has been confused in the morning and attempting to punch care providers. Patient attempting to remove his heart monitor, was briefly on soft mittens. IM Zyprexa as needed ordered. Per RN, patient ate half of his breakfast. No other acute medical issues overnight. Physical Exam Physical Exam: General- Alert. Head- atraumatic Eyes- PERRL. ENT- oropharynx clear Neck- supple, no JVD. Lungs- clear to auscultation no wheezing or crackles. Heart- regular rhythm; no murmur, no gallop. Abdomen- normal bowel sounds, soft, nontender, no distension Extremities- no pretibial edema, no erythema seen. Bilateral knee bruises noted. Neuro- alert and awake ; PERRL, no facial palsy; no dysarthria; Urinary catheter with rojas urine collection in the bag noted. Results & Data Results & Data Vital Signs (Past 12 Hours) Vital Signs Temp Pulse Pulse Resp BP Pulse Ox O2 Del Method 04/06/24 14:39 90 04/06/24 11:34 36.6 C 98 H 16 108/66 97 Room Air 04/06/24 10:27 88 04/06/24 07:49 36.5 C 99 H 18 122/71 96 Room Air
[2024-04-06] MEDS: SODIUM CHLORIDE 0.9% 1,000 ML IV SCH (18:40)
[2024-04-06] MEDS ORDERED: LABETALOL HCL IV 5 MG/ML 20ML IV PRN (19:56)
[2024-04-06] MEDS: ACETAMINOPHEN 1,000 MG/100 ML VIAL IV PRN (20:01)
[2024-04-06] MEDS: DAPTOmycin 525 MG in SYRINGE 0 ML IV SCH (20:01)
[2024-04-07] MEDS: ONDANSETRON INJ 2 MG/ML 2 ML VIAL IV PRN (00:46)
[2024-04-07 10:00] LABS: Hematocrit (blood only) 34.4 % (42.0-52.0); Hemoglobin 11.2 g/dl (14.0-18.0); Mean Corpuscular Hemoglobin 28.6 pg (25.0-34.0); Mean Corpuscular Hgb Conc 32.6 g/dL (32.0-36.0); Mean Platelet Volume 12.1 fL (9.4-12.4); Nucleated RBC # (auto) 0.05 K/uL (0.00-0.12); Nucleated RBC % (auto) 0.3 %; Platelet Count 101 K/uL (130-400); RDW Coefficient of Variation 17.7 % (11.5-14.5); RDW Standard Deviation 56.8 fL (36.4-46.3); Red Blood Count 3.91 M/uL (4.70-6.10)
[2024-04-07 10:13] LABS: BUN Creatinine Ratio 17.6 (10-20); Calcium 8.5 mg/dl (8.6-10.3); Creatinine Clr Calc Pharmacy 67.8 ml/min; Magnesium 2.1 mg/dl (1.7-2.4); Phosphorus 3.1 mg/dl (2.5-4.9); Potassium 4.1 mmol/L (3.5-5.1)
--- NOTE | 2024-04-07 16:30 | Hospitalist Progress Note ---
Date of Service April 07, 2024 Assessment & Plan (1) Severe sepsis: Plan: 68 yo M from [place] w/ PMH of dyslipidemia, type 2 diabetes, CAD, systolic and diastolic CHF [EF 45% echo 2018 and EF 50 to 50% on echo done in 2022], spina bifida, mild intellectual disability, impulsive disorder, generalized disorder, depression, hypothyroidism, GERD, BPH, hepatitis B infection, CKD presents with altered behavior and noted to have severe sepsis iso UTI and HESHAM. Patient is mostly wheelchair-bound. He can transfer to the wheelchair. He fell onto his buttock [employer]. Because of the weakness and poor appetite and fall he was brought to the hospital. In the ER he was spiking temperature 103 degrees and blood pressure systolic in 70s . Patient has intellectual disability but able to converse okay though sometimes difficult to understand as per the caregiver. He is being managed for the following: Severe sepsis POA ISO acute UTI Acute UTI Acute metabolic encephalopathy mostly from sepsis: currently agitated and attempting to remove med equip per RN. will use soft restraint to UE. Lactate, pulse, temperature, WBC elevated at presentation. UA suggestive of UTI. Respiratory BioFire negative, CXR with no acute finding, CT head with no acute finding. Status post IV antibiotic and IV fluid in the ED with improvement. Lactate trended down to normal. Continue with IV daptomycin and Zosyn 04/05. Continue with IV fluids for now. Follow admitting blood and urine culture. De-escalate atb once bl cx results for 48 hrs out. Likely demand ischemia: Troponin elevated at 216 at presentation, down trended. Patient with no chest pain. EKG with no acute ST or T changes. Patient did not cooperate with echo fully, ejection fraction 55 to 60%, there is hypokinesis of the apical and mid septum on views obtained. Cardiology evaluated, appreciate. Will continue telemetry monitoring for now, continue to monitor patient. Hyponatremia: Admitting sodium of 128 at presentation, Improved to his baseline of low 130s. likely secondary to poor p.o. intake prior to arrival. currently stable. Acute kidney injury: Admitting creatinine of 2.6, baseline creatinine of 1. Status post Alfred catheter in the ED, status post IV fluid. CT abdomen pelvis with no acute finding. Creatinine resolved. Likely prerenal secondary to poor p.o. intake prior to arrival. Avoid nephrotoxic's, labs in AM. Other chronic medical conditions: Continue with/resume home meds as and when able. Chronic systolic and diastolic CHF: EF of 50 to 55% from echo 2022. Lasix on hold due to need for IV fluid resuscitation secondary to severe sepsis. Diabetes mellitus: Sliding scale insulin while in hospital. A1c of 6.7 this admission. Hypertension: Holding blood pressure medication due to soft blood pressure secondary to sepsis. Resume as able. Hypothyroidism: Continue Synthroid. GERD: Continue home PPI. Depression, JEAN, compulsive disorder with mild intellectual disability: Continue home venlafaxine, divalproex, buspirone, bupropion, Abilify, doxepin. Resume risperidone and Seroquel once mentation Becomes stable and improved. CAD: Continue with home aspirin and beta-kenyatta. BPH: Status post Alfred in the ED. Thrombocytopenia: Chronic, stable. Anemia: Chronic, stable. History of spina bifida DVT prophylaxis: Heparin subcu, monitor platelets. Disposition: Telemetry. PT/OT. CM to assist with DC planning. likely donavon. CODE STATUS: as per prior attending, full code as per my discussion with caregiver. But in the documents there is a POLST form for DNR/DNI. Needs to rediscuss with caregiver. Will rediscuss w/ caregivers when available at bedside. Admission and Anticipated Discharge Date Admission Date: April 05, 2024 Subjective Patient was seen and examined at bedside. Patient was lying in bed, on room air, NAD, resting comfortably. Per RN, no new acute events overnight. Pt eating ok and moving bowels ok. Physical Exam Physical Exam: General- Alert. Head- atraumatic Eyes- PERRL. ENT- oropharynx clear Neck- supple, no JVD. Lungs- clear to auscultation no wheezing or crackles. Heart- regular rhythm; no murmur, no gallop. Abdomen- normal bowel sounds, soft, nontender, no distension Extremities- no pretibial edema, no erythema seen. Bilateral knee bruises noted. Neuro- alert and awake ; PERRL, no facial palsy; no dysarthria; Urinary catheter with rojas urine collection in the bag noted. Results & Data Results & Data Vital Signs (Past 12 Hours) Vital Signs Temp Pulse Pulse Resp BP BP Pulse Ox 04/07/24 15:27 101 H 04/07/24 15:01 36.8 C 73 22 187/79 H 90 04/07/24 11:13 100 H 04/07/24 10:52 37.2 C 90 17 161/76 H 91 O2 Del Method 04/07/24 15:27 04/07/24 15:01 Room Air 04/07/24 11:13 04/07/24 10:52 Room Air
[2024-04-08 06:37] LABS: Hematocrit (blood only) 34.2 % (42.0-52.0); Hemoglobin 11.2 g/dl (14.0-18.0); Mean Corpuscular Hemoglobin 28.8 pg (25.0-34.0); Mean Corpuscular Hgb Conc 32.7 g/dL (32.0-36.0); Mean Corpuscular Volume 87.9 fL (80.0-100.0); Mean Platelet Volume 10.8 fL (9.4-12.4); Nucleated RBC # (auto) 0.07 K/uL (0.00-0.12); Nucleated RBC % (auto) 0.8 %; Platelet Count 93 K/uL (130-400); RDW Coefficient of Variation 17.6 % (11.5-14.5); RDW Standard Deviation 56.5 fL (36.4-46.3); Red Blood Count 3.89 M/uL (4.70-6.10); White Blood Count 8.83 K/ul (4.8-10.8)
[2024-04-08 07:01] LABS: BUN Creatinine Ratio 18.7 (10-20); Calcium 8.3 mg/dl (8.6-10.3); Creatinine Clr Calc Pharmacy 69.9 ml/min; Phosphorus 4.2 mg/dl (2.5-4.9); Potassium 3.8 mmol/L (3.5-5.1)
[2024-04-08] MEDS: ADVANCED PROBIOTIC 625 MG CAPSULE PO SCH (08:33)
[2024-04-08] MEDS: CIPROFLOXACIN 500 MG TAB PO SCH (08:39)
[2024-04-08] MEDS ORDERED: lisinopril 10 MG TAB PO SCH (12:30)
[2024-04-08] MEDS ORDERED: FUROSEMIDE 40 MG TAB PO SCH (12:30)
--- NOTE | 2024-04-08 12:38 | Discharge Summary ---
Date of Service April 08, 2024 Admission HPI Per Admitting Provider 68-year-old male comes from [place] [facility] with past medical significant for dyslipidemia, type 2 diabetes, history of CAD, history of systolic and diastolic CHF EF 45% echo 2018 and EF 50 to 50% on echo done in 2022, history of spina bifida, history of mild intellectual disability, impulsive disorder, generalized disorder, depression, hypothyroidism, GERD, BPH, history of prior hepatitis B infection, CKD,presents with severe sepsis and UTI and HESHAM. As per caregiver in the room since yesterday evening patient is not eating much. Last night he could not sleep which is not unusual for him and today was sleeping more which was also not unusual. Patient is mostly wheelchair-bound. He can transfer to the wheelchair. He is complaining of abdominal pain today and he had a fall onto his buttock today. Because of the weakness and poor appetite and fall he was brought to the hospital. In the ER he was spiking temperature 103 degrees and blood pressure systolic in 70s . With the fluids blood pressure improved. Lactic acid was 3.3 and repeat is 1.8. Sodium 128. Creatinine 2.6. VBG was okay. WBC 38. Initial troponin 216 and repeat 158 UA was positive, respiratory bio fire negative. Patient is currently very drowsy. When aroused can tell his name and knows that he is in the hospital but could not tell the date. Goes back to sleep. Denies any chest pain, denies abdominal pain. Denies nausea. Could not get much history from the patient. Patient has intellectual disability but able to converse okay though sometimes difficult to understand as per the caregiver. Past medical history. As mentioned above Past surgical history. Bilateral alveloplasty. Colonoscopy. EGD. EGD with endoscopic ultrasound. Surgical extraction of ruptured tooth. Social history. No smoking. No alcoholism. No drug use. Family history. Mother had diabetes. Heart disorder. Father had heart disorder. Maternal grandfather had stroke. Maternal grandmother had stroke. Admission Exam Per Admitting Provider General- Drowsy. Head- atraumatic Eyes- PERRL. ENT- oropharynx clear Neck- supple, no JVD. Lungs- clear to auscultation no wheezing or crackles. Heart- regular rhythm; no murmur, no gallop. Abdomen- normal bowel sounds, soft, nontender, no distension Extremities- no pretibial edema, no erythema seen Neuro- Drowsy oriented x2 ; PERRL, no facial palsy; no dysarthria; Principal Diagnosis Severe sepsis POA ISO acute UTI Acute UTI Acute metabolic encephalopathy mostly from sepsis Acute kidney injury Discharge Exam General- Alert. Head- atraumatic Eyes- PERRL. ENT- oropharynx clear Neck- supple, no JVD. Lungs- clear to auscultation no wheezing or crackles. Heart- regular rhythm; no murmur, no gallop. Abdomen- normal bowel sounds, soft, nontender, no distension Extremities- no pretibial edema, no erythema seen. Bilateral knee bruises noted. Neuro- alert and awake ; PERRL, no facial palsy; no dysarthria; Urinary catheter with rojas urine collection in the bag noted. Discharge Data Allergies Allergy/AdvReac Type Severity Reaction Status Date / Time terbinafine Allergy Mild RASH ON Verified 07/23/22 08:56 ARM? Consultations 04/05/24 19:06 ED Decision to Admit Stat 04/06/24 08:00 Consult Cardiology Routine Ordered Studies 04/05/24 17:41 CT head/brain wo con Stat 04/05/24 17:47 CT abd pelvis wo con Stat Hospital Course (1) Severe sepsis: 68 yo M from [place] w/ PMH of dyslipidemia, type 2 diabetes, CAD, systolic and diastolic CHF [EF 45% echo 2018 and EF 50 to 50% on echo done in 2022], spina bifida, mild intellectual disability, impulsive disorder, generalized disorder, depression, hypothyroidism, GERD, BPH, hepatitis B infection, CKD presents with altered behavior and noted to have severe sepsis iso UTI and HESHAM. Patient is mostly wheelchair-bound. He can transfer to the wheelchair. He fell onto his buttock [employer]. Because of the weakness and poor appetite and fall he was brought to the hospital. In the ER he was spiking temperature 103 degrees and blood pressure systolic in 70s . Patient has intellectual disability but able to converse okay though sometimes difficult to understand as per the caregiver. He was managed for the following: Severe sepsis POA ISO acute UTI Acute UTI Acute metabolic encephalopathy mostly from sepsis: currently agitated and attempting to remove med equip per RN. will use soft restraint to UE. Lactate, pulse, temperature, WBC elevated at presentation. UA suggestive of UTI. Respiratory BioFire negative, CXR with no acute finding, CT head with no acute finding. Status post IV antibiotic and IV fluid in the ED with improvement. Lactate trended down to normal. Continue with IV daptomycin and Zosyn 04/05. to PO atb cipro 04/08, Bl Cx [id number]. Pt to f/u w/ PCP within a week time of discharge and f/u on final results of blood culture. Urine cx w/ gnb. Likely demand ischemia: Troponin elevated at 216 at presentation, down trended. Patient with no chest pain. EKG with no acute ST or T changes. Patient did not cooperate with echo fully, ejection fraction 55 to 60%, there is hypokinesis of the apical and mid septum on views obtained. Cardiology evaluated, appreciate. Will continue telemetry monitoring for now, continue to monitor patient. Hyponatremia: Admitting sodium of 128 at presentation, Improved to his baseline of low 130s. likely secondary to poor p.o. intake prior to arrival. currently stable. Acute kidney injury: Admitting creatinine of 2.6, baseline creatinine of 1. Status post Alfred catheter in the ED, status post IV fluid. CT abdomen pelvis with no acute finding. Creatinine resolved. Likely prerenal secondary to poor p.o. intake prior to arrival. Avoid nephrotoxic's, labs in AM. Other chronic medical conditions: Continue with/resume home meds as and when able. Chronic systolic and diastolic CHF: EF of 50 to 55% from echo 2022. Lasix on hold due to need for IV fluid resuscitation secondary to severe sepsis. Diabetes mellitus: Sliding scale insulin while in hospital. A1c of 6.7 this admission. Hypertension: Holding blood pressure medication due to soft blood pressure secondary to sepsis. Resume as able. Hypothyroidism: Continue Synthroid. GERD: Continue home PPI. Depression, JEAN, compulsive disorder with mild intellectual disability: Continue home venlafaxine, divalproex, buspirone, bupropion, Abilify, doxepin. Resume risperidone and Seroquel once mentation Becomes stable and improved. CAD: Continue with home aspirin and beta-kenyatta. BPH: Status post Alfred in the ED. Thrombocytopenia: Chronic, stable. Anemia: Chronic, stable. History of spina bifida DVT prophylaxis: Heparin subcu, monitor platelets. Disposition: Telemetry. PT/OT. CM to assist with DC planning. likely donavon. CODE STATUS: as per prior attending, full code as per my discussion with caregiver. But in the documents there is a POLST form for DNR/DNI. Needs to rediscuss with caregiver. Will rediscuss w/ caregivers when available at bedside. Patient being discharged back to [facility] with following instruction at the point of discharge: Follow-up with your primary care physician within a week time and likely you will need labs CBC/CMP/magnesium/phosphorus. You were treated for acute UTI, you will be discharged on antibiotic to complete the course for UTI. Take your medications as prescribed. Please make sure that you are able to get your medications today by calling your pharmacy before you leave the hospital so that your treatment continuity is not broken. Home Health Attestation I certify that this patient is under my care and that I, or a physicians biology research assistant working with me, had a face to-face encounter that meets the home health [id number] encounter requirements with this patient. The encounter with the patient was in whole, or in part, for the following medical condition, which is the primary reason for home health care (list medical condition): I certify that, based on my findings, the following services are medically necessary home health services: My clinical findings support the need for the above services because: Further, I certify that my clinical findings support that this patient is homebound (i.e. absences from home require considerable and taxing effort and are for medical reasons or moravian services or infrequently or of short duration when for other reasons) because: Certification for Home Health Services: Based on the above findings, I certify that this patient is confined to the home and needs intermittent long term care, physical therapy and/or speech therapy or continues to need occupational therapy. The patient is under my care, and I have initiated the establishment of the plan of care. This patient will be followed by a physician who will periodically review the plan of care. Total Time Total Time Spent Total Time Spent (In Minutes): 40 Discharge Plan Discharge Items Patient Disposition: Personal Nursing Home Reason For Visit: SEVERE SEPSIS, ACUTE UTI Discharge Diagnosis: Severe sepsis POA ISO acute UTI Acute UTI Acute metabolic encephalopathy mostly from sepsis Acute kidney injury Condition on Discharge: Serious Activity: Resume your previous activity Non-emergency contact: Primary Care Provider Call non-emergency contact if: you have any medication questions and your symptoms worsen Follow-up/Referrals: Tim Swenson, [Primary Care Provider] - Diet: Carb Consistent or DM2 Addtl Attending Provider Instructions: Follow-up with your primary care physician within a week time and likely you will need labs CBC/CMP/magnesium/phosphorus. You were treated for acute UTI, you will be discharged on antibiotic to complete the course for UTI. Take your medications as prescribed. Please make sure that you are able to get your medications today by calling your pharmacy before you leave the hospital so that your treatment continuity is not broken. Pending Studies at Discharge: No Stand-Alone Forms: My Impact Driven, Smoking Cessation Skilled Items Patient informed of condition?: Yes DNR: No Discharge Level of Care: Other Communicable Disease: No Discharge Prognosis: Stable Lines: None Urinary Catheter: No Medications and DC Order Prescriptions: New ciprofloxacin HCl 500 mg Tablet 500 mg PO BID 5 Days Qty: 10 0RF Advanced Probiotic 625 mg (10 billion cell) Capsule 1 cap PO DAILY 7 Days Qty: 7 0RF Continued aspirin 81 mg Tablet,Chewable 81 mg PO .DAILY @0800 Rx Instructions: 8 am sennosides [senna] 8.6 mg Tablet 8.6 mg PO .DAILY@0800,1800 (DME) lancets [Lancets,Thin] Misc See Rx Instructions .ROUTE .MEDSUPPLY Qty: 50 2RF Rx Instructions: As directed bupropion HCl 300 mg tablet extended release 24 hr 300 mg PO .DAILY @0800 buspirone 15 mg Tablet 15 mg PO .DAILY @ 0800,1800 Rx Instructions: 8am and 8 pm aripiprazole [Abilify] 15 mg Tablet 15 mg PO .DAILY @ 0800 Rx Instructions: 8 am quetiapine [Seroquel] 50 mg Tablet 50 mg PO .[id number],1400,1800 Rx Instructions: 8am,2pm,8pm doxepin 10 mg Capsule 10 mg PO .DAILY @1800 omeprazole 40 mg Capsule,Delayed Release(Dr/Ec) 40 mg PO .DAILY@0800 Rx Instructions: 7am multivitamin [Daily-Ezekiel] Tablet 1 tab PO .DAILY @ 0800 venlafaxine 37.5 mg capsule,extended release 24hr 37.5 mg PO .DAILY@0800 venlafaxine 75 mg capsule,extended release 24hr 75 mg PO .DAILY@0800 risperidone 0.25 mg tablet 0.25 mg PO .DAILY@0800 divalproex 500 mg tablet extended release 24 hr 1,500 mg PO UD Rx Instructions: faxed medication list has medication listed as 500 mg po at 6pm. Fill history 11/09/23 has directions of 1500 mg (500x3 tablets) po at bedtime lisinopril 10 mg Tablet 10 mg PO .DAILY@0800 furosemide 40 mg tablet 40 mg PO .DAILY @0800 Patient Comments: TAKES 40MG DAILY AND 20MG QPM carvedilol 25 mg tablet 25 mg PO .DAILY @ 0800,1800 glimepiride 2 mg tablet 2 mg PO .DAILY@0800 levothyroxine 100 mcg tablet 100 mcg PO .DAILY@0700 Jardiance 25 mg tablet 25 mg PO .DAILY@0800 sucralfate 1 gram Tablet 1 g PO .DAILY@0800 Discharge Orders: Discharge Order (Routine); Ordered 04/08/24 Ordered By: Ben Wright Admission Data Admit Date/Time: 04/05/24 20:26 Attending Provider: Ben Wright Admit Provider: Tha Hernandez Primary Care Provider: Tim Swenson Other Providers: Tha Hernandez
[2024-04-08] MEDS: carvediloL 25 MG TAB PO SCH (13:45)
[2024-04-08] MEDS: lisinopril 10 MG TAB PO SCH (13:45)
[2024-04-08] MEDS: FUROSEMIDE INJ 20 MG/2 ML VIAL IV ONE (15:56)
--- NOTE | 2024-04-08 16:33 | Hospitalist Progress Note ---
Date of Service April 08, 2024 Assessment & Plan (1) Severe sepsis: Plan: 68 yo M from [employer] w/ PMH of dyslipidemia, type 2 diabetes, CAD, systolic and diastolic CHF [EF 45% echo 2018 and EF 50 to 50% on echo done in 2022], spina bifida, mild intellectual disability, impulsive disorder, generalized disorder, depression, hypothyroidism, GERD, BPH, hepatitis B infection, CKD presents with altered behavior and noted to have severe sepsis iso UTI and HESHAM. Patient is mostly wheelchair-bound. He can transfer to the wheelchair. 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 Because of the weakness and poor appetite and fall he was brought to the hospital. In the ER he was spiking temperature 103 degrees and blood pressure systolic in 70s . Patient has intellectual disability but able to converse okay though sometimes difficult to understand as per the caregiver. He is being managed for the following: Severe sepsis POA ISO acute UTI Acute UTI Acute metabolic encephalopathy mostly from sepsis: currently agitated and attempting to remove med equip per RN. will use soft restraint to UE. Lactate, pulse, temperature, WBC elevated at presentation. UA suggestive of UTI. Respiratory BioFire negative, CXR with no acute finding, CT head with no acute finding. Status post IV antibiotic and IV fluid in the ED with improvement. Lactate trended down to normal. Continue with IV daptomycin and Zosyn 04/05. to PO atb cipro 04/08, Bl Cx NG48H. Pt to f/u w/ PCP within a week time of discharge and f/u on final results of blood culture. Urine cx w/ gnb. Hypoxia: Saturating 89-91% later today. Likely secondary to fluid overload during admission in the setting of severe sepsis. His Lasix has been resumed from today. Will get CXR and monitor him overnight. Expect him to improve with resuming of his Lasix. Likely demand ischemia: Troponin elevated at 216 at presentation, down trended. Patient with no chest pain. EKG with no acute ST or T changes. Patient did not cooperate with echo fully, ejection fraction 55 to 60%, there is hypokinesis of the apical and mid septum on views obtained. Cardiology evaluated, appreciate. Will continue telemetry monitoring for now, continue to monitor patient. Hyponatremia: Admitting sodium of 128 at presentation, Improved to his baseline of low 130s. likely secondary to poor p.o. intake prior to arrival. currently stable. Acute kidney injury: Admitting creatinine of 2.6, baseline creatinine of 1. Status post Alfred catheter in the ED, status post IV fluid. CT abdomen pelvis with no acute finding. Creatinine resolved. Likely prerenal secondary to poor p.o. intake prior to arrival. Avoid nephrotoxic's, labs in AM. Other chronic medical conditions: Continue with/resume home meds as and when able. Chronic systolic and diastolic CHF: EF of 50 to 55% from echo 2022. Lasix on hold due to need for IV fluid resuscitation secondary to severe sepsis. Diabetes mellitus: Sliding scale insulin while in hospital. A1c of 6.7 this admission. Hypertension: Holding blood pressure medication due to soft blood pressure secondary to sepsis. Resume as able. Hypothyroidism: Continue Synthroid. GERD: Continue home PPI. Depression, JEAN, compulsive disorder with mild intellectual disability: Continue home venlafaxine, divalproex, buspirone, bupropion, Abilify, doxepin. Resume risperidone and Seroquel once mentation Becomes stable and improved. CAD: Continue with home aspirin and beta-kenyatta. BPH: Status post Alfred in the ED. Thrombocytopenia: Chronic, stable. Anemia: Chronic, stable. History of spina bifida DVT prophylaxis: Heparin subcu, monitor platelets. Disposition: Telemetry. PT/OT. CM to assist with DC planning. likely donavon. CODE STATUS: as per prior attending, full code as per my discussion with caregiver. But in the documents there is a POLST form for DNR/DNI. Needs to rediscuss with caregiver. Will rediscuss w/ caregivers when available at bedside. Admission and Anticipated Discharge Date Admission Date: April 05, 2024 Subjective Patient was seen and examined at bedside. Patient was lying in bed, on room air, NAD, resting comfortably. Per RN, no new acute events overnight. Pt eating ok and moving bowels ok. Pt was initially Discharged but patient was saturating between 89 to 91% later in the day, could be due to his Lasix being held secondary to sepsis and hypotension at presentation. His Lasix has been resumed, will get CXR to rule out pulmonary edema versus infection. Will cancel the discharge and monitor the patient overnight. Updated patient's caregiver Frederic. Discussed the plan with RN. Physical Exam Physical Exam: General- Alert. Head- atraumatic Eyes- PERRL. ENT- oropharynx clear Neck- supple, no JVD. Lungs- clear to auscultation no wheezing or crackles. Heart- regular rhythm; no murmur, no gallop. Abdomen- normal bowel sounds, soft, nontender, no distension Extremities- no pretibial edema, no erythema seen. Bilateral knee bruises noted. Neuro- alert and awake ; PERRL, no facial palsy; no dysarthria; Urinary catheter with rojas urine collection in the bag noted. Results & Data Results & Data Vital Signs (Past 12 Hours) Vital Signs Temp Pulse Pulse Resp BP BP Pulse Ox 04/08/24 16:16 91 04/08/24 16:00 92 04/08/24 15:35 36.6 C 73 18 141/84 H 91 04/08/24 14:06 89 163/83 H 04/08/24 14:02 83 04/08/24 13:44 88 182/96 H 04/08/24 10:32 37.4 C 84 17 175/84 H 95 04/08/24 07:22 91 H 04/08/24 07:08 36.4 C L 81 18 165/94 H 95 O2 Del Method O2 Flow Rate 04/08/24 16:16 Room Air 04/08/24 16:00 Room Air 04/08/24 15:35 Room Air 04/08/24 14:06 04/08/24 14:02 04/08/24 13:44 04/08/24 10:32 Nasal Cannula 2 04/08/24 07:22 04/08/24 07:08 Nasal Cannula 2
--- NOTE | 2024-04-08 17:13 | XRay Report ---
EXAM: Radiograph of the Chest 1 View INDICATION: Pulmonary edema versus infection TECHNIQUE: Frontal view of the chest. COMPARISON: 04/05/2024 and 11/27/2023 FINDINGS: Lungs and pleural spaces: There is increased groundglass density throughout the right lung. Mild increased groundglass and interstitial density in the left upper lobe. Heart: Stable large cardiac shadow. Mediastinum: Normal contour. Bones/joints: Degenerative changes noted in the scoliotic spine. No acute osseous abnormality noted. Soft tissues: No abnormality noted. No radiopaque foreign body noted. Upper abdomen: No abnormality noted. IMPRESSION: Increased groundglass densities right greater than left. Considerations include pulmonary vascular congestion and chemical or infectious pneumonitis including viral etiologies. ACT 112: Negative or not required by law. Electronically signed by Haleigh Garcia 04-08-2024 5:12 PM
[2024-04-08 23:57] VITALS: TEMP 97.9
[2024-04-09 07:59] VITALS: RESP 19; O2SAT 93
[2024-04-09] MEDS: FUROSEMIDE 40 MG TAB PO SCH (08:28)
[2024-04-09 08:55] LABS: Hematocrit (blood only) 35.4 % (42.0-52.0); Hemoglobin 11.5 g/dl (14.0-18.0); Mean Corpuscular Hemoglobin 28.5 pg (25.0-34.0); Mean Corpuscular Hgb Conc 32.5 g/dL (32.0-36.0); Mean Corpuscular Volume 87.6 fL (80.0-100.0); Mean Platelet Volume 12.1 fL (9.4-12.4); Nucleated RBC % (auto) 1.4 %; Platelet Count 97 K/uL (130-400); RDW Coefficient of Variation 17.7 % (11.5-14.5); RDW Standard Deviation 57.4 fL (36.4-46.3); Red Blood Count 4.04 M/uL (4.70-6.10); White Blood Count 7.18 K/ul (4.8-10.8)
[2024-04-09 09:15] LABS: BUN Creatinine Ratio 19.5 (10-20); Calcium 8.4 mg/dl (8.6-10.3); Creatinine Clr Calc Pharmacy 70.1 ml/min; Magnesium 2.3 mg/dl (1.7-2.4); Phosphorus 3.4 mg/dl (2.5-4.9); Potassium 3.7 mmol/L (3.5-5.1)
[2024-04-09 11:59] LABS: iSTAT Arterial Blood Gas HCO3 24 meg/L (19-24); iSTAT Arterial Blood Gas pCO2 37 mmHg (35-46); iSTAT Arterial Blood Gas pH 7.42 (7.35-7.45); iSTAT Arterial Blood Gas pO2 56 mmHg (80-95); iSTAT Carbon Dioxide 25 mmol/L (24-31); iSTAT Hematocrit 36 % (42-52); iSTAT Hemoglobin 12.2 g/dl (14.0-18.0); iSTAT Potassium 3.7 mmol/L (3.3-5.0); iSTAT Sodium 136 mmol/L (135-144)
--- NOTE | 2024-04-09 14:02 | Discharge Summary ---
Date of Service April 09, 2024 Admission HPI Per Admitting Provider 68-year-old male comes from [employer] [facility] with past medical significant for dyslipidemia, type 2 diabetes, history of CAD, history of systolic and diastolic CHF EF 45% echo 2018 and EF 50 to 50% on echo done in 2022, history of spina bifida, history of mild intellectual disability, impulsive disorder, generalized disorder, depression, hypothyroidism, GERD, BPH, history of prior hepatitis B infection, CKD,presents with severe sepsis and UTI and HESHAM. As per caregiver in the room since yesterday evening patient is not eating much. Last night he could not sleep which is not unusual for him and today was sleeping more which was also not unusual. Patient is mostly wheelchair-bound. He can transfer to the wheelchair. He is complaining of abdominal pain today and he had a fall onto his buttock today. Because of the weakness and poor appetite and fall he was brought to the hospital. In the ER he was spiking temperature 103 degrees and blood pressure systolic in 70s . With the fluids blood pressure improved. Lactic acid was 3.3 and repeat is 1.8. Sodium 128. Creatinine 2.6. VBG was okay. WBC 38. Initial troponin 216 and repeat 158 UA was positive, respiratory bio fire negative. Patient is currently very drowsy. When aroused can tell his name and knows that he is in the hospital but could not tell the date. Goes back to sleep. Denies any chest pain, denies abdominal pain. Denies nausea. Could not get much history from the patient. Patient has intellectual disability but able to converse okay though sometimes difficult to understand as per the caregiver. Past medical history. As mentioned above Past surgical history. Bilateral alveloplasty. Colonoscopy. EGD. EGD with endoscopic ultrasound. Surgical extraction of ruptured tooth. Social history. No smoking. No alcoholism. No drug use. Family history. Mother had diabetes. Heart disorder. Father had heart disorder. Maternal grandfather had stroke. Maternal grandmother had stroke. Admission Exam Per Admitting Provider General- Drowsy. Head- atraumatic Eyes- PERRL. ENT- oropharynx clear Neck- supple, no JVD. Lungs- clear to auscultation no wheezing or crackles. Heart- regular rhythm; no murmur, no gallop. Abdomen- normal bowel sounds, soft, nontender, no distension Extremities- no pretibial edema, no erythema seen Neuro- Drowsy oriented x2 ; PERRL, no facial palsy; no dysarthria; Principal Diagnosis Severe sepsis POA ISO acute UTI Acute UTI Acute metabolic encephalopathy mostly from sepsis Acute kidney injury Hypoxemia Discharge Exam General- Alert. Head- atraumatic Eyes- PERRL. ENT- oropharynx clear Neck- supple, no JVD. Lungs- clear to auscultation no wheezing or crackles. Heart- regular rhythm; no murmur, no gallop. Abdomen- normal bowel sounds, soft, nontender, no distension Extremities- no pretibial edema, no erythema seen. Bilateral knee bruises noted. Neuro- alert and awake ; PERRL, no facial palsy; no dysarthria; Discharge Data Allergies Allergy/AdvReac Type Severity Reaction Status Date / Time terbinafine Allergy Mild RASH ON Verified 07/23/22 08:56 ARM? Consultations 04/05/24 19:06 ED Decision to Admit Stat 04/06/24 08:00 Consult Cardiology Routine Ordered Studies 04/05/24 17:41 CT head/brain wo con Stat 04/05/24 17:47 CT abd pelvis wo con Stat Hospital Course (1) Severe sepsis: 68 yo M from [employer] w/ PMH of dyslipidemia, type 2 diabetes, CAD, systolic and diastolic CHF [EF 45% echo 2018 and EF 50 to 50% on echo done in 2022], spina bifida, mild intellectual disability, impulsive disorder, generalized disorder, depression, hypothyroidism, GERD, BPH, hepatitis B infection, CKD presents with altered behavior and noted to have severe sepsis iso UTI and HESHAM. Patient is mostly wheelchair-bound. He can transfer to the wheelchair. 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 Because of the weakness and poor appetite and fall he was brought to the hospital. In the ER he was spiking temperature 103 degrees and blood pressure systolic in 70s . Patient has intellectual disability but able to converse okay though sometimes difficult to understand as per the caregiver. He was managed for the following: Severe sepsis POA ISO acute UTI Acute UTI Acute metabolic encephalopathy mostly from sepsis: currently agitated and attempting to remove med equip per RN. will use soft restraint to UE. Lactate, pulse, temperature, WBC elevated at presentation. UA suggestive of UTI. Respiratory BioFire negative, CXR with no acute finding, CT head with no acute finding. Status post IV antibiotic and IV fluid in the ED with improvement. Lactate trended down to normal. Continue with IV daptomycin and Zosyn 04/05. to PO atb cipro 04/08, Bl Cx NG48H. Pt to f/u w/ PCP within a week time of discharge and f/u on final results of blood culture. Urine cx w/ gnb. Hypoxemia: Saturating 89-91% on RA on 04/08. Appears he is hypoxemic in the past as well per records review. CXR w/ some congestion. c/w lasix 04/08. Can't do 2 step as he is wheelchair bound. ABG on RA w/ PaO2 of 56 and SaO2 of 89%. He is saturating 89-91 % mostly on room air and to 95% on 2L NC O2. He will need O2 to go home w/. Prescript provided to CM. Pt will benefit from sleep study as OP. Likely demand ischemia: Troponin elevated at 216 at presentation, down trended. Patient with no chest pain. EKG with no acute ST or T changes. Patient did not cooperate with echo fully, ejection fraction 55 to 60%, there is hypokinesis of the apical and mid septum on views obtained. Cardiology evaluated, appreciate. Will continue telemetry monitoring for now, continue to monitor patient. Hyponatremia: Admitting sodium of 128 at presentation, Improved to his baseline of low 130s. likely secondary to poor p.o. intake prior to arrival. currently stable. Acute kidney injury: Admitting creatinine of 2.6, baseline creatinine of 1. Status post Alfred catheter in the ED, status post IV fluid. CT abdomen pelvis with no acute finding. Creatinine resolved. Likely prerenal secondary to poor p.o. intake prior to arrival. Avoid nephrotoxic's, labs in AM. Other chronic medical conditions: Continue with/resume home meds as and when able. Chronic systolic and diastolic CHF: EF of 50 to 55% from echo 2022. Lasix on hold due to need for IV fluid resuscitation secondary to severe sepsis. Diabetes mellitus: Sliding scale insulin while in hospital. A1c of 6.7 this admission. Hypertension: Holding blood pressure medication due to soft blood pressure secondary to sepsis. Resume as able. Hypothyroidism: Continue Synthroid. GERD: Continue home PPI. Depression, JEAN, compulsive disorder with mild intellectual disability: Continue home venlafaxine, divalproex, buspirone, bupropion, Abilify, doxepin. Resume risperidone and Seroquel once mentation Becomes stable and improved. CAD: Continue with home aspirin and beta-kenyatta. BPH: Status post Alfred in the ED. Thrombocytopenia: Chronic, stable. Anemia: Chronic, stable. History of spina bifida DVT prophylaxis: Heparin subcu, monitor platelets. Disposition: Telemetry. PT/OT. CM to assist with DC planning. likely donavon. CODE STATUS: as per prior attending, full code as per my discussion with caregiver. But in the documents there is a POLST form for DNR/DNI. Needs to rediscuss with caregiver. Will rediscuss w/ caregivers when available at bedside. He is being discharged with following instruction at the point of discharge: Follow-up with your primary care physician within a week time and likely you will need labs CBC/CMP/magnesium/phosphorus. You were treated for acute UTI, you will be discharged on antibiotic to complete the course for UTI. You will benefit from outpatient sleep study, coordinate with your PCP office to set up the test. Take your medications as prescribed. Please make sure that you are able to get your medications today by calling your pharmacy before you leave the hospital so that your treatment continuity is not broken. Home Health Attestation I certify that this patient is under my care and that I, or a physicians marketing communications assistant working with me, had a face to-face encounter that meets the home health [id number] encounter requirements with this patient. The encounter with the patient was in whole, or in part, for the following medical condition, which is the primary reason for home health care (list medical condition): I certify that, based on my findings, the following services are medically necessary home health services: My clinical findings support the need for the above services because: Further, I certify that my clinical findings support that this patient is homebound (i.e. absences from home require considerable and taxing effort and are for medical reasons or adventist services or infrequently or of short duration when for other reasons) because: Certification for Home Health Services: Based on the above findings, I certify that this patient is confined to the home and needs intermittent [facility] care, physical therapy and/or speech therapy or continues to need occupational therapy. The patient is under my care, and I have initiated the establishment of the plan of care. This patient will be followed by a physician who will periodically review the plan of care. Total Time Total Time Spent Total Time Spent (In Minutes): 40 Discharge Plan Discharge Items Patient Disposition: Personal Alf Reason For Visit: SEVERE SEPSIS, ACUTE UTI Discharge Diagnosis: Severe sepsis POA ISO acute UTI Acute UTI Acute metabolic encephalopathy mostly from sepsis Acute kidney injury Hypoxemia Condition on Discharge: Serious Activity: Resume your previous activity Non-emergency contact: Primary Care Provider Call non-emergency contact if: you have any medication questions and your symptoms worsen Follow-up/Referrals: Tim Swenson DO [Primary Care Provider] - 04/18/24 1:40 pm (Date & Time 04/18/2024 1:40 PM Provider: Tim Swenson DO [facility] ) Diet: Carb Consistent or DM2 Addtl Attending Provider Instructions: Follow-up with your primary care physician within a week time and likely you will need labs CBC/CMP/magnesium/phosphorus. You were treated for acute UTI, you will be discharged on antibiotic to complete the course for UTI. You will benefit from outpatient sleep study, coordinate with your PCP office to set up the test. Take your medications as prescribed. Please make sure that you are able to get your medications today by calling your pharmacy before you leave the hospital so that your treatment continuity is not broken. Pending Studies at Discharge: No Stand-Alone Forms: My [employer], Smoking Cessation Skilled Items Patient informed of condition?: Yes DNR: No Discharge Level of Care: Other Communicable Disease: No Discharge Prognosis: Stable Lines: None Urinary Catheter: No Medications and DC Order Prescriptions: New ciprofloxacin HCl 500 mg Tablet 500 mg PO BID 5 Days Qty: 10 0RF Advanced Probiotic 625 mg (10 billion cell) Capsule 1 cap PO DAILY 7 Days Qty: 7 0RF Continued aspirin 81 mg Tablet,Chewable 81 mg PO .DAILY @0800 Rx Instructions: 8 am sennosides [senna] 8.6 mg Tablet 8.6 mg PO .DAILY@0800,1800 (DME) lancets [Lancets,Thin] Misc See Rx Instructions .ROUTE .MEDSUPPLY Qty: 50 2RF Rx Instructions: As directed bupropion HCl 300 mg tablet extended release 24 hr 300 mg PO .DAILY @0800 buspirone 15 mg Tablet 15 mg PO .DAILY @ 0800,1800 Rx Instructions: 8am and 8 pm aripiprazole [Abilify] 15 mg Tablet 15 mg PO .DAILY @ 0800 Rx Instructions: 8 am quetiapine [Seroquel] 50 mg Tablet 50 mg PO .[id number],1400,1800 Rx Instructions: 8am,2pm,8pm doxepin 10 mg Capsule 10 mg PO .DAILY @1800 omeprazole 40 mg Capsule,Delayed Release(Dr/Ec) 40 mg PO .DAILY@0800 Rx Instructions: 7am multivitamin [Daily-Ezekiel] Tablet 1 tab PO .DAILY @ 0800 venlafaxine 37.5 mg capsule,extended release 24hr 37.5 mg PO .DAILY@0800 venlafaxine 75 mg capsule,extended release 24hr 75 mg PO .DAILY@0800 risperidone 0.25 mg tablet 0.25 mg PO .DAILY@0800 divalproex 500 mg tablet extended release 24 hr 1,500 mg PO UD Rx Instructions: faxed medication list has medication listed as 500 mg po at 6pm. Fill history 11/09/23 has directions of 1500 mg (500x3 tablets) po at bedtime lisinopril 10 mg Tablet 10 mg PO .DAILY@0800 furosemide 40 mg tablet 40 mg PO .DAILY @0800 Patient Comments: TAKES 40MG DAILY AND 20MG QPM carvedilol 25 mg tablet 25 mg PO .DAILY @ 0800,1800 glimepiride 2 mg tablet 2 mg PO .DAILY@0800 levothyroxine 100 mcg tablet 100 mcg PO .DAILY@0700 Jardiance 25 mg tablet 25 mg PO .DAILY@0800 sucralfate 1 gram Tablet 1 g PO .DAILY@0800 Discharge Orders: Discharge Order (Routine); Ordered 04/09/24 Ordered By: Ben Wright Admission Data Admit Date/Time: 04/05/24 20:26 Attending Provider: Ben Wright Admit Provider: Tha Hernandez Primary Care Provider: Tim Swenson Other Providers: Tha Hernandez
[2024-04-09 14:29] VITALS: BP 141/84; PULSE 63
== END 2024-04-09 17:00 | disposition home or self-care (01) | DRG 871 ==
LOC: ED 17:23 → 2S 20:26 → SUATTDRO 20:26 → 2S 23:02
DX: F32.A Depression, unspecified; I11.0 Hypertensive heart disease with heart failure; K21.9 Gastro-esophageal reflux disease without esophagitis; F63.9 Impulse disorder, unspecified; R09.02 Hypoxemia; E87.1 Hypo-osmolality and hyponatremia; N40.0 Benign prostatic hyperplasia without lower urinary tract symptoms; N17.9 Acute kidney failure, unspecified; R65.20 Severe sepsis without septic shock; I25.10 Atherosclerotic heart disease of native coronary artery without angina pectoris; Z86.19 Personal history of other infectious and parasitic diseases; E78.5 Hyperlipidemia, unspecified; G93.41 Metabolic encephalopathy; I50.42 Chronic combined systolic (congestive) and diastolic (congestive) heart failure; F70 Mild intellectual disabilities; I24.89 Other forms of acute ischemic heart disease; E03.9 Hypothyroidism, unspecified; Z79.84 Long term (current) use of oral hypoglycemic drugs; Q05.9 Spina bifida, unspecified; E86.0 Dehydration; N39.0 Urinary tract infection, site not specified; A41.9 Sepsis, unspecified organism; Z99.3 Dependence on wheelchair

== ENCOUNTER 2024-04-09 18:44 | Inpatient (IN) ==
--- NOTE | 2024-04-09 19:33 | Emergency Department Note ---
History of Present Illness General Chief complaint: Respiratory Distress Stated complaint: RESPIRATORY Time Seen by Provider: 04/09/24 19:02 Source: other (Frederic his plant and maintenance technician at [facility]) History of Present Illness Provider complaint: Shortness of breath 68-year-old male presents emergency department for difficulty breathing. Patient has intellectual disability and history of an impulsive disorder. History is provided by his plant and maintenance technician Frederic who is at bedside from his home at [facility]. Frederic states that the patient was discharged back home to [facility] and started having difficulty breathing. He stated that they tried to place the oxygen on him however he was unable to keep it on him and the patient's oxygen level went down to 86%. He states that they cannot take care of the patient when he is needing oxygen at the prison. Home Medications Medication Instructions Recorded Confirmed Type sennosides 8.6 mg tablet (senna) 8.6 mg PO .DAILY@0800,1800 09/21/18 04/05/24 History lancets (Lancets,Thin) #50 ea 11/07/19 04/05/24 Rx bupropion HCl 300 mg 24 hr tablet, 300 mg PO .DAILY @0805/05/20 04/05/24 History extended release aspirin 81 mg chewable tablet 81 mg PO .DAILY @79906/09/20 04/05/24 History aripiprazole 15 mg tablet (Abilify) 15 mg PO .DAILY @ 79907/31/20 04/05/24 History buspirone 15 mg tablet 15 mg PO .DAILY @ 0800,179907/31/20 04/05/24 History quetiapine 50 mg tablet (Seroquel) 50 mg PO .[id number],1400,1800 07/31/20 04/05/24 History doxepin 10 mg capsule 10 mg PO .DAILY @179902/07/21 04/05/24 History omeprazole 40 mg capsule,delayed 40 mg PO .DAILY@79905/21/21 04/05/24 History release divalproex 500 mg tablet,extended 1,500 mg PO UD 04/11/22 04/05/24 History release 24 hr multivitamin (Daily-Ezekiel tablet) 1 tab PO .DAILY @ 79904/11/22 04/05/24 History risperidone 0.25 mg tablet 0.25 mg PO .DAILY@0804/11/22 04/05/24 History venlafaxine 37.5 mg 37.5 mg PO .DAILY@79904/11/22 04/05/24 History capsule,extended release 24 hr venlafaxine 75 mg capsule,extended 75 mg PO .DAILY@0804/11/22 04/05/24 History release 24 hr furosemide 40 mg tablet 40 mg PO .DAILY @79907/16/22 04/05/24 History lisinopril 10 mg tablet 10 mg PO .DAILY@79907/16/22 04/05/24 History carvedilol 25 mg tablet 25 mg PO .DAILY @ 0800,1800 12/15/22 04/05/24 History empagliflozin 25 mg tablet 25 mg PO .DAILY@79912/15/22 04/05/24 History (Jardiance) glimepiride 2 mg tablet 2 mg PO .DAILY@79912/15/22 04/05/24 History levothyroxine 100 mcg tablet 100 mcg PO .DAILY@69912/15/22 04/05/24 History sucralfate 1 gram tablet 1 g PO .DAILY@79911/27/23 04/05/24 History L.acidop,casei,lactis,rham-B.lact,christal 1 cap PO DAILY 1 week #7 caps 04/08/24 Rx 625 mg (10 billion cell) capsule (Advanced Probiotic) ciprofloxacin HCl 500 mg tablet 500 mg PO BID 5 days #10 tabs 04/08/24 Rx Allergies Allergy/AdvReac Type Severity Reaction Status Date / Time terbinafine Allergy Mild RASH ON Verified 07/23/22 08:56 ARM? Past Med/Surg History Problem List (Updated 04/09/24 @ 19:51 by Aaron Rey MD) Acute dyspnea (Acute) Severe sepsis Acute UTI (Acute) Acute hyponatremia (Acute) Elevated lactic acid level (Acute) Leukocytosis (Acute) Dehydration (Acute) HSEHAM (acute kidney injury) (Acute) Hypotension (Acute) Elevated troponin (Acute) Sepsis (Acute) Back pain Closed L2 vertebral fracture (Acute) Pulmonary edema (Acute) Pneumonitis (Acute) Lactic acidemia (Acute) Contrast dye induced nephropathy Acute renal insufficiency Elevated troponin Chronic heart failure with reduced ejection fraction and diastolic dysfunction Elevated troponin I level Acute respiratory failure with hypoxia Influenza A (Acute) Low oxygen saturation Respiratory distress Hypertension (Acute) Intellectual disability (Acute) Acute kidney failure Aspiration into airway (Acute) Airway clearance impairment (Acute) Encounter for pre-operative examination Congestive heart failure (CHF) Acute respiratory failure with hypoxia Aspiration pneumonia DVT prophylaxis Discharge planning issues Psychiatric disorder Intermittent explosive disorder Anxiety disorder, unspecified Depression Oral candidiasis Weakness (Acute) DVT prophylaxis CHF (congestive heart failure) Sepsis (Acute) Severe sepsis Abdominal pain Cholelithiasis Encounter for pre-operative examination History of laparoscopic cholecystectomy Laparoscopic cholecystectomy [address] Wolff Vocal cord paralysis, unilateral complete H/O tooth extraction Coronary artery disease (Chronic) GERD (gastroesophageal reflux disease) (Chronic) Medical History Thrombocytopenia Chronic thrombocytopenia, baseline platelets low 100s per chart review Obesity Cerebral palsy Moderate intellectual disabilities sister/POA -ASHLEY IRENE [phone]-[facility] 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 SIGNS CONSENTS Anemia MRSA (methicillin resistant Staphylococcus aureus) carrier Dysphagia Keratoconus Cataract Arthritis Spina bifida Hypothyroidism Diabetes mellitus, type 2 Chronic ischemic heart disease Hyperlipidemia Hypertension Intermittent explosive disorder Impulse control disorder Severe anxiety Combative behavior Fall Fall risk Surgical History History of esophagogastroduodenoscopy (EGD) History of colonoscopy EGD/colonoscopy (12/07/19): MAC sedation at [facility] History of bronchoscopy Flexible bronchoscopy with BAL (02/04/18): Grade view 1, Elective glidescope #4, ETT 8.5 at [facility] (done for aspiration PNA) Family History Other No significant family history Social History Smoking Status: Unknown if ever smoked Second Hand Exposure: No; Do You Dip or Chew Tobacco: No; Hx Alcohol Use: No Hx Substance Use: No Preferred Language: Mohawk Communication Ability: Effective Communication Ability Comment: PT IS INTELLECTUALLY IMPAIRED Vegetable Cook Required: No Beliefs That Will Affect Care: None marital status: Single Current Living Situation: Personal Care Facility Current Living Situation Comment: [facility] current occupational status: disabled Feels Safe at Home: Yes Assistive Devices: Wheelchair Physical Exam Vital Signs Vital Signs - 24 hr 04/09/24 18:45 04/09/24 18:45 04/09/24 18:45 Temperature 36.8 C Temperature Source Oral Pulse Rate 63 Pulse Rate [Apical] Respiratory Rate 19 Respiratory Effort / Characteristics Non-Labored Spontaneous Non-Labored Spontaneous Respiratory Depth Normal Normal Respiratory Pattern Regular Blood Pressure 156/89 H Blood Pressure [Left Arm] Blood Pressure Mean 111 Blood Pressure Mean [Left Arm] Pulse Oximetry 93 91 Oxygen Delivery Method Room Air Room Air Room Air Oxygen Flow Rate Sepsis New/Unexplained Change in Mental Status No Sepsis Action Taken by Nursing No Action Required 04/09/24 18:54 04/09/24 19:01 04/09/24 19:23 Temperature Temperature Source Pulse Rate 61 Pulse Rate [Apical] 65 Respiratory Rate 16 Respiratory Effort / Characteristics Respiratory Depth Respiratory Pattern Blood Pressure Blood Pressure [Left Arm] 146/72 H Blood Pressure Mean Blood Pressure Mean [Left Arm] 96 Pulse Oximetry 90 93 Oxygen Delivery Method Room Air Nasal Cannula Oxygen Flow Rate 2 Sepsis New/Unexplained Change in Mental Status Sepsis Action Taken by Nursing Physical Exam NECK: Normal range of motion. Neck supple. No JVD present. CV: Normal rate, regular rhythm, normal heart sounds and intact distal pulses. There is no peripheral edema. Palpable radial pulses bue. PULM/CHEST: Rhonchi bilaterally. SKIN: Skin is warm and dry. He is not diaphoretic. Course Course 1901: The patient was evaluated in room B2. A complete history and physical exam was performed Cardiac monitoring: An order was placed for continuous cardiac monitoring. The monitor shows a rate of 60 with sinus rhythm interpreted by me External medical records reviewed. Patient was admitted to the hospital from April 05 to April 09 2024. Patient was discharged at 1644 today. According to the discharge summary the patient was admitted for severe sepsis secondary to UTI and metabolic encephalopathy from the sepsis. The patient was hypoxic saturating between 89 to 91% on room air. His oxygen saturation improved to 95% on 2 L. He was discharged home with oxygen. Frederic the plant and maintenance technician from [facility] states that the cat keep the oxygen on him at his home. Oxygen was replaced in the emergency department. Will plan on admitting the patient to the hospitalist team which she was just discharged from. 1947: Vital signs stable on supplemental oxygen via nasal cannula. Chest x-ray shows right-sided infiltrate/effusion appears improved from the chest x-ray that was conducted yesterday. POC ABG shows a pH of 7.395 pCO2 35.7 pO2 of 67 bicarb 21.9 and oxygen saturation of 93%. Patient will be readmitted to the [facility] hospitalist team as the plant and maintenance technician from [facility] states that he cannot manage the patient [facility] the [facility]. Medical Decision Making Medical Records Attestation: I reviewed the patient's medical records. External medical records reviewed. Patient was admitted to the hospital from April 05 to April 09 2024. Patient was discharged at 1644 today. According to the discharge summary the patient was admitted for severe sepsis secondary to UTI and metabolic encephalopathy from the sepsis. The patient was hypoxic saturating between 89 to 91% on room air. His oxygen saturation improved to 95% on 2 L. He was discharged home with oxygen. Laboratory Data Attestation: I reviewed the patient's lab results. POC ABG shows a pH of 7.395 pCO2 35.7 pO2 of 67 bicarb 21.9 and oxygen saturation of 93% Imaging Data Attestation: I personally reviewed and interpreted this imaging study as follows: My Impression: Chest x-ray: Right-sided infiltrate/effusion appears improved from the chest x- ray that was conducted yesterday ECG Data Attestation: I personally reviewed and interpreted this ECG as follows: Rate (beats per minute): 60 Rhythm: + normal sinus ECG Intervals/blocks: + Normal QRS, + Normal NV and + Normal QT-c ECG ST segments: + Normal ST segments [facility] Narrative 1901: The patient was evaluated in room B2. A complete history and physical exam was performed Cardiac monitoring: An order was placed for continuous cardiac monitoring. The monitor shows a rate of 60 with sinus rhythm interpreted by me External medical records reviewed. Patient was admitted to the hospital from April 05 to April 09 2024. Patient was discharged at 1644 today. According to the discharge summary the patient was admitted for severe sepsis secondary to UTI and metabolic encephalopathy from the sepsis. The patient was hypoxic saturating between 89 to 91% on room air. His oxygen saturation improved to 95% on 2 L. He was discharged home with oxygen. Frederic the plant and maintenance technician from [facility] states that the cat keep the oxygen on him at his home. Oxygen was replaced in the emergency department. Will plan on admitting the patient to the hospitalist team which she was just discharged from. 8: Vital signs stable on supplemental oxygen via nasal cannula. Chest x-ray shows right-sided infiltrate/effusion appears improved from the chest x-ray that was conducted yesterday. POC ABG shows a pH of 7.395 pCO2 35.7 pO2 of 67 bicarb 21.9 and oxygen saturation of 93%. Patient will be readmitted to the [facility] hospitalist team as the plant and maintenance technician from [facility] states that he cannot manage the patient at the [facility]. Impression & Plan Acute dyspnea Discharge Plan Visit Data Chief Complaint: Respiratory Distress Stated Complaint: RESPIRATORY ED Provider: Aaron Rey Discharge Problem: Acute dyspnea Patient Disposition: Being Evaluated by Hospitalist Forms Stand Alone Forms: My [facility] Prescriptions Prescriptions: No Action aspirin 81 mg Tablet,Chewable 81 mg PO .DAILY @0800 Rx Instructions: 8 am sennosides [senna] 8.6 mg Tablet 8.6 mg PO .DAILY@0800,1800 (DME) lancets [Lancets,Thin] Misc See Rx Instructions .ROUTE .MEDSUPPLY Qty: 50 2RF Rx Instructions: As directed bupropion HCl 300 mg tablet extended release 24 hr 300 mg PO .DAILY @0800 buspirone 15 mg Tablet 15 mg PO .DAILY @ 0800,1800 Rx Instructions: 8am and 8 pm aripiprazole [Abilify] 15 mg Tablet 15 mg PO .DAILY @ 0800 Rx Instructions: 8 am quetiapine [Seroquel] 50 mg Tablet 50 mg PO .[id number],1400,1800 Rx Instructions: 8am,2pm,8pm doxepin 10 mg Capsule 10 mg PO .DAILY @1800 omeprazole 40 mg Capsule,Delayed Release(Dr/Ec) 40 mg PO .DAILY@0800 Rx Instructions: 7am multivitamin [Daily-Ezekiel] Tablet 1 tab PO .DAILY @ 0800 venlafaxine 37.5 mg capsule,extended release 24hr 37.5 mg PO .DAILY@0800 venlafaxine 75 mg capsule,extended release 24hr 75 mg PO .DAILY@0800 risperidone 0.25 mg tablet 0.25 mg PO .DAILY@0800 divalproex 500 mg tablet extended release 24 hr 1,500 mg PO UD Rx Instructions: faxed medication list has medication listed as 500 mg po at 6pm. Fill history 11/09/23 has directions of 1500 mg (500x3 tablets) po at bedtime lisinopril 10 mg Tablet 10 mg PO .DAILY@0800 furosemide 40 mg tablet 40 mg PO .DAILY @0800 Patient Comments: TAKES 40MG DAILY AND 20MG QPM carvedilol 25 mg tablet 25 mg PO .DAILY @ 0800,1800 glimepiride 2 mg tablet 2 mg PO .DAILY@0800 levothyroxine 100 mcg tablet 100 mcg PO .DAILY@0700 Jardiance 25 mg tablet 25 mg PO .DAILY@0800 sucralfate 1 gram Tablet 1 g PO .DAILY@0800 ciprofloxacin HCl 500 mg Tablet 500 mg PO BID 5 Days Qty: 10 0RF Advanced Probiotic 625 mg (10 billion cell) Capsule 1 cap PO DAILY 7 Days Qty: 7 0RF Referrals Referrals: Tim Swenson DO [Primary Care Provider] -
[2024-04-09 19:50] LABS: iSTAT Arterial Blood Gas HCO3 22 meg/L (19-24); iSTAT Arterial Blood Gas pCO2 36 mmHg (35-46); iSTAT Arterial Blood Gas pO2 67 mmHg (80-95); iSTAT Carbon Dioxide 23 mmol/L (24-31); iSTAT Hematocrit 35 % (42-52); iSTAT Hemoglobin 11.9 g/dl (14.0-18.0); iSTAT Potassium 3.6 mmol/L (3.3-5.0); iSTAT Sodium 138 mmol/L (135-144)
--- NOTE | 2024-04-09 20:55 | XRay Report ---
Exam(s): XR CXR 1 VIEW EXAM: XR Chest, 1 View CLINICAL HISTORY: susan. TECHNIQUE: Frontal view of the chest. COMPARISON: No relevant prior studies available. FINDINGS: Lungs: The cardiac silhouette remains enlarged and is stable in appearance. No lobar consolidation. Reticulonodular interstitial changes noted in the perihilar regions, stable from the prior examination. The left hemidiaphragm is better defined despite cardiomegaly and prominent soft tissues when compared to the previous examination. Pleural space: No definite pleural effusion or pneumothorax. Heart: See above. Mediastinum: No significant abnormality identified. The trachea is midline. Bones/joints: Unremarkable. No acute fracture. IMPRESSION: No lobar consolidation. Stable reticulonodular interstitial changes may represent chronic interstitial changes or recurrent interstitial edema. No large pleural effusion or pneumothorax. Stable cardiomegaly. Electronically signed by: Leonides Chau MD 04/09/24 20:54 PM
--- NOTE | 2024-04-09 22:15 | History & Physical Report ---
Date of Service April 09, 2024 Assessment & Plan (1) Acute respiratory failure with hypoxia: Plan: Respiratory failure with troponin elevation History diastolic heart failure, mild congestion on x-ray Rule out PE hx CAD as per records hypertension, elevated hyperlipidemia, on statin Rx history HBV/cholelithiasis/hepatic steatosis as per records DM2 on oral medications, well-controlled as of recent hemoglobin A1c of 6.19 March 2024 Complicated UTI on Cipro course (GNR on initial urine CS) chronic anemia, hemoglobin at baseline chronic thrombocytopenia history of spina bifida anxiety/mood disorder intellectual impairment ambulatory dysfunction Medical telemetry Supplemental O2 CT chest PE study if patient will comply Check D-dimer if patient does not comply with CT chest LE venous Dopplers to rule out clot if D-dimer abnormal Eliquis in place of parenteral anticoagulation for presumptive PE if patient continues to refuse IV access or subcu heparin (Patient sister agreeable in the eventuality.) Safety of patient being discharged home on oral anticoagulation will need to be reviewed if clot studies turnaround planner positive. Patient fall risk as per sister. DVT prophylaxis. Lovenox subcu DNR as per discussion with sister/POA, Ms. Gladys Irene given patient circumstance. Palliative care consultation to discuss goals of care with patient family may be appropriate if patient continues to be uncooperative during admission. She requests updates from providers through [phone]. She also requests for patient to be cared for by female nurses if possible to facilitate better cooperation from patient. Text document was generated using [employer] voice recognition software. It may contain grammatical or spelling errors. Kindly contact undersigned for clarification of any documentation item in question. History of Present Illness Chief Complaint: Low oxygen Primary Care Provider: Tim Swenson DO History obtained from patient, family, caregiver, and records. Limited history from patient secondary to intellectual impairment. Medical history significant for chronic diastolic failure secondary to ischemic cardiomyopathy (EF 55%, TTE 2023), hx CAD as per records, hypertension, hyperlipidemia, history HBV/cholelithiasis/hepatic steatosis as per records, DM2 on oral medications, chronic anemia (baseline hemoglobin of 11), chronic thrombocytopenia, history of spina bifida, GERD, BPH, anxiety/mood disorder, intellectual impairment, ambulatory dysfunction. Recent confinement April 05 to 2023 for sepsis secondary to complicated UTI. Gram-negative rods on urine CS. Patient discharged on ciprofloxacin course. Patient noted to be hypoxemic during confinement. Attributed to congestion on CXR status post Lasix Rx. Patient discharged back to [facility] today with home O2. Patient noted to be short of breath at [facility]. Would not keep oxygen on. Patient denies chest pain, cough. Patient brought to the ER for evaluation. Patient refusing IV access. Medical History as above Surgical History : Dental surgery Family History : Diabetes, heart disease Personal/Social history : Non-smoker, no EtOH intake, [facility] resident Allergies Allergy/AdvReac Type Severity Reaction Status Date / Time terbinafine Allergy Mild RASH ON Verified 07/23/22 08:56 ARM? Home Medications Medication Instructions Recorded Confirmed Type sennosides 8.6 mg tablet (senna) 8.6 mg PO .DAILY@0800,1800 09/21/18 04/09/24 History lancets (Lancets,Thin) #50 ea 11/07/19 04/09/24 Rx bupropion HCl 300 mg 24 hr tablet, 300 mg PO .DAILY @0800 05/05/20 04/09/24 History extended release aspirin 81 mg chewable tablet 81 mg PO .DAILY @0806/09/20 04/09/24 History aripiprazole 15 mg tablet (Abilify) 15 mg PO .DAILY @ 0800 07/31/20 04/09/24 History buspirone 15 mg tablet 15 mg PO .DAILY @ 0800,1800 07/31/20 04/09/24 History quetiapine 50 mg tablet (Seroquel) 50 mg PO .[id number],1400,1800 07/31/20 04/09/24 History doxepin 10 mg capsule 10 mg PO .DAILY @1800 02/07/21 04/09/24 History omeprazole 40 mg capsule,delayed 40 mg PO .DAILY@0805/21/21 04/09/24 History release divalproex 500 mg tablet,extended 1,500 mg PO UD 04/11/22 04/09/24 History release 24 hr multivitamin (Daily-Ezekiel tablet) 1 tab PO .DAILY @ 0800 04/11/22 04/09/24 History risperidone 0.25 mg tablet 0.25 mg PO .DAILY@0804/11/22 04/09/24 History venlafaxine 37.5 mg 37.5 mg PO .DAILY@0800 04/11/22 04/09/24 History capsule,extended release 24 hr venlafaxine 75 mg capsule,extended 75 mg PO .DAILY@0800 04/11/22 04/09/24 History release 24 hr furosemide 40 mg tablet 40 mg PO .DAILY @0800 07/16/22 04/09/24 History lisinopril 10 mg tablet 10 mg PO .DAILY@0800 07/16/22 04/09/24 History carvedilol 25 mg tablet 25 mg PO .DAILY @ 0800,1800 12/15/22 04/09/24 History empagliflozin 25 mg tablet 25 mg PO .DAILY@0800 12/15/22 04/09/24 History (Jardiance) glimepiride 2 mg tablet 2 mg PO .DAILY@0800 12/15/22 04/09/24 History levothyroxine 100 mcg tablet 100 mcg PO .DAILY@0700 12/15/22 04/09/24 History sucralfate 1 gram tablet 1 g PO .DAILY@0811/27/23 04/09/24 History L.acidop,casei,lactis,rham-B.lact,christal 1 cap PO DAILY 1 week #7 caps 04/08/24 04/09/24 Rx 625 mg (10 billion cell) capsule (Advanced Probiotic) ciprofloxacin HCl 500 mg tablet 500 mg PO BID 5 days #10 tabs 04/08/24 04/09/24 Rx Past Med/Surg History Problem List (Updated 04/09/24 @ 19:51 by Aaron Rey MD) Acute dyspnea (Acute) Severe sepsis Acute UTI (Acute) Acute hyponatremia (Acute) Elevated lactic acid level (Acute) Leukocytosis (Acute) Dehydration (Acute) HESHAM (acute kidney injury) (Acute) Hypotension (Acute) Elevated troponin (Acute) Sepsis (Acute) Back pain Closed L2 vertebral fracture (Acute) Pulmonary edema (Acute) Pneumonitis (Acute) Lactic acidemia (Acute) Contrast dye induced nephropathy Acute renal insufficiency Elevated troponin Chronic heart failure with reduced ejection fraction and diastolic dysfunction Elevated troponin I level Acute respiratory failure with hypoxia Influenza A (Acute) Low oxygen saturation Respiratory distress Hypertension (Acute) Intellectual disability (Acute) Acute kidney failure Aspiration into airway (Acute) Airway clearance impairment (Acute) Encounter for pre-operative examination Congestive heart failure (CHF) Acute respiratory failure with hypoxia Aspiration pneumonia DVT prophylaxis Discharge planning issues Psychiatric disorder Intermittent explosive disorder Anxiety disorder, unspecified Depression Oral candidiasis Weakness (Acute) DVT prophylaxis CHF (congestive heart failure) Sepsis (Acute) Severe sepsis Abdominal pain Cholelithiasis Encounter for pre-operative examination History of laparoscopic cholecystectomy Laparoscopic cholecystectomy [address] Wolff Vocal cord paralysis, unilateral complete H/O tooth extraction Coronary artery disease (Chronic) GERD (gastroesophageal reflux disease) (Chronic) Medical History Thrombocytopenia Chronic thrombocytopenia, baseline platelets low 100s per chart review Obesity Cerebral palsy Moderate intellectual disabilities sister/POA -GLADYS IRENE [phone] CRUZ 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 SIGNS CONSENTS Anemia MRSA (methicillin resistant Staphylococcus aureus) carrier Dysphagia Keratoconus Cataract Arthritis Spina bifida Hypothyroidism Diabetes mellitus, type 2 Chronic ischemic heart disease Hyperlipidemia Hypertension Intermittent explosive disorder Impulse control disorder Severe anxiety Combative behavior Fall Fall risk Surgical History History of esophagogastroduodenoscopy (EGD) History of colonoscopy EGD/colonoscopy (12/07/19): MAC sedation at [facility] History of bronchoscopy Flexible bronchoscopy with BAL (02/04/18): Grade view 1, Elective glidescope #4, ETT 8.5 at [facility] (done for aspiration PNA) Family History Other No significant family history Social History Smoking Status: Never smoker Second Hand Exposure: No; Do You Dip or Chew Tobacco: No; Hx Alcohol Use: No Hx Substance Use: No Preferred Language: Gabonese Communication Ability: Impaired Communication Ability Comment: PT IS INTELLECTUALLY IMPAIRED Thread Singer Required: No Beliefs That Will Affect Care: None marital status: Single Current Living Situation: Other Current Living Situation Comment: Erin Cruz current occupational status: disabled Feels Safe at Home: Yes Assistive Devices: Wheelchair Review of Systems Review of Systems: Could not be reliably obtained secondary to intellectual impairment Physical Exam Physical Exam: GENERAL: Oriented to place, no respiratory distress, obese SKIN: Pallor,, warm HEENT: Pale palpebral conjunctivae, no ptosis, moist buccal mucosa, partially edentulous, nasal cannula in place NECK : Supple, short neck, no tenderness CHEST : Decreased breath sounds , no tenderness HEART : RRR, no obvious murmurs ABDOMEN: Some distention, minimal epigastric tenderness EXTREMITIES : Bilateral LE swelling withouttenderness, no other conspicuous deformities noted NEUROLOGIC : Oriented to place, no facial asymmetry, gait and stance not assessed Results & Data Results & Data Vital Signs (Past 12 Hours) Vital Signs Temp Pulse Pulse Resp BP BP Pulse Ox 04/09/24 21:00 60 16 118/56 L 96 04/09/24 20:00 60 16 136/59 L 99 04/09/24 19:23 93 04/09/24 19:01 65 16 146/72 H 90 04/09/24 18:54 61 04/09/24 18:45 91 04/09/24 18:45 36.8 C 63 19 156/89 H 93 04/09/24 18:45 O2 Del Method O2 Flow Rate 04/09/24 21:00 Nasal Cannula 2 04/09/24 20:00 Nasal Cannula 2 04/09/24 19:23 Nasal Cannula 2 04/09/24 19:01 Room Air 04/09/24 18:54 04/09/24 18:45 Room Air 04/09/24 18:45 Room Air 04/09/24 18:45 Room Air Laboratory Results Laboratory Results POC Hgb 11.9 g/dl (14.0-18.0) L 04/09/24 19:35 POC Hct 35 % (42-52) L 04/09/24 19:35 POC pH 7.40 (7.35-7.45) 04/09/24 19:35 POC pCO2 36 mmHg (35-46) 04/09/24 19:35 POC pO2 67 mmHg (80-95) L 04/09/24 19:35 POC HCO3 22 marichuy/L (19-24) 04/09/24 19:35 POC Total CO2 23 mmol/L (24-31) L 04/09/24 19:35 POC Base Excess -3.0 marichuy/L (-9-1.8) 04/09/24 19:35 POC ABG O2 Sat 93.0 % (90-95) 04/09/24 19:35 POC Sodium 138 mmol/L (135-144) 04/09/24 19:35 POC Potassium 3.6 mmol/L (3.3-5.0) 04/09/24 19:35 B-Natriuretic Peptide 117 pg/ml (0-100) H 04/09/24 20:52 Impressions Chest X-Ray 04/09/24 19:17 Exam(s): XR CXR 1 VIEW EXAM: XR Chest, 1 View CLINICAL HISTORY: susan. TECHNIQUE: Frontal view of the chest. COMPARISON: No relevant prior studies available. FINDINGS: Lungs: The cardiac silhouette remains enlarged and is stable in appearance. No lobar consolidation. Reticulonodular interstitial changes noted in the perihilar regions, stable from the prior examination. The left hemidiaphragm is better defined despite cardiomegaly and prominent soft tissues when compared to the previous examination. Pleural space: No definite pleural effusion or pneumothorax. Heart: See above. Mediastinum: No significant abnormality identified. The trachea is midline. Bones/joints: Unremarkable. No acute fracture. IMPRESSION: No lobar consolidation. Stable reticulonodular interstitial changes may represent chronic interstitial changes or recurrent interstitial edema. No large pleural effusion or pneumothorax. Stable cardiomegaly. Electronically signed by: Leonides Chau MD 04/09/24 20:54 PM Diagnostic Findings EKG as per my interpretation :Rate 60, NSR, normal axis, nonspecific T wave abnormalities
[2024-04-09] MEDS: QUEtiapine FUMARATE 25 MG TABLET PO SCH (23:34)
[2024-04-09] MEDS: ALBUT/IPRATROP 3MG/0.5MG NEB 3 ML VIAL NEB STA (23:34)
[2024-04-10] MEDS ORDERED: CARBOHYDRATES FOR HYPOGLYCEMIA PO PRN (01:30)
[2024-04-10] MEDS ORDERED: GLUCOSE 10 TAB/TUBE PO PRN (01:30)
[2024-04-10] MEDS ORDERED: DEXTROSE 50% 50 ML SYRINGE IV PRN (01:30)
[2024-04-10] MEDS ORDERED: GLUCOSE 40% GEL 15 GM TUBE PO PRN (01:30)
[2024-04-10] MEDS ORDERED: NITROGLYCERIN SL 0.4 MG/TAB TAB SL PRN (01:30)
[2024-04-10] MEDS ORDERED: GLUCAGON FOR INJ 1 MG VIAL SQ PRN (01:30)
[2024-04-10] MEDS: INSULIN ASPART PER UNIT CHARGE SC SCH (02:18)
[2024-04-10] MEDS: LEVOTHYROXINE SODIUM 100 MCG TABLET PO SCH (06:57)
[2024-04-10] MEDS: lisinopril 10 MG TAB PO STA (06:58)
[2024-04-10] MEDS: carvediloL 3.125 MG TAB PO SCH (07:51)
[2024-04-10] MEDS: VENLAFAXINE HCL XR 75 MG CAPXR PO SCH (07:51)
[2024-04-10] MEDS: ASPIRIN 81 MG ECTAB PO SCH (07:51)
[2024-04-10] MEDS: ADVANCED PROBIOTIC 625 MG CAPSULE PO SCH (07:51)
[2024-04-10] MEDS: buPROPion XL 300 MG TABCR PO SCH (07:51)
[2024-04-10] MEDS: PANTOprazole 40 MG TAB PO SCH (07:51)
[2024-04-10] MEDS: ARIPiprazole 15 MG TAB PO SCH (07:52)
[2024-04-10] MEDS: SUCRALFATE 1 GM TAB PO SCH (07:52)
[2024-04-10] MEDS: MULTIVITAMIN TAB PO SCH (07:52)
[2024-04-10] MEDS: risperiDONE 0.25 MG TAB PO SCH (07:52)
[2024-04-10] MEDS: busPIRone 15 MG TAB PO SCH (07:52)
[2024-04-10] MEDS: SENNA 8.6 MG TAB PO SCH (07:54)
[2024-04-10] MEDS ORDERED: lisinopril 10 MG TAB PO SCH (08:00)
[2024-04-10 08:09] LABS: Hematocrit (blood only) 36.5 % (42.0-52.0); Hemoglobin 11.8 g/dl (14.0-18.0); Mean Corpuscular Hemoglobin 28.8 pg (25.0-34.0); Mean Corpuscular Hgb Conc 32.3 g/dL (32.0-36.0); Mean Platelet Volume 10.9 fL (9.4-12.4); Nucleated RBC # (auto) 0.04 K/uL (0.00-0.12); Nucleated RBC % (auto) 0.6 %; Platelet Count 119 K/uL (130-400); RDW Coefficient of Variation 17.8 % (11.5-14.5); RDW Standard Deviation 56.7 fL (36.4-46.3); White Blood Count 7.24 K/ul (4.8-10.8)
[2024-04-10 08:17] LABS: BUN Creatinine Ratio 18.8 (10-20); Calcium 8.4 mg/dl (8.6-10.3); Creatinine Clr Calc Pharmacy 76.6 ml/min; Potassium 3.6 mmol/L (3.5-5.1)
[2024-04-10 08:31] LABS: ALC (manual) 1.52 K/uL (1.2-3.4); ANC (manual) 3.33 K/uL (1.4-6.5); Eosinophils # (manual) 0.51 K/uL (0-0.50); Eosinophils % (manual) 7 %; Lymphocytes # (manual) 1.52 K/uL (1.2-3.4); Lymphocytes % (manual) 21 %; Metamyelocytes # (manual) 0.58 K/uL (0-0); Metamyelocytes % (manual) 8 %; Monocytes # (manual) 1.01 K/uL (0.11-0.59); Monocytes % (manual) 14 %; Myelocytes # (manual) 0.29 K/uL (0-0); Myelocytes % (manual) 4 %; Neutrophils # (manual) 3.33 K/uL (1.40-6.50); Neutrophils % (manual) 46 %
[2024-04-10 08:34] LABS: Partial Thromboplastin Time 26 Seconds (21-31)
[2024-04-10] MEDS: ENOXAPARIN INJ 40 MG/0.4 ML SYR SQ SCH (08:39)
[2024-04-10] MEDS: VENLAFAXINE HCL XR 37.5 MG CAPXR PO SCH (09:14)
[2024-04-10 09:30] LABS: D Dimer 2190 ug/L FEU (0-500)
--- NOTE | 2024-04-10 10:06 | Electrocardiogram Report ---
Test Reason : Blood Pressure : */* mmHG Vent. Rate : 60 BPM Atrial Rate : 60 BPM P-R Int : 178 ms QRS Dur : 92 ms QT Int : 450 ms P-R-T Axes : 64 73 62 degrees QTcB Int : 450 ms Normal sinus rhythm Low voltage QRS Cannot rule out Anteroseptal infarct (cited on or before 10-Jun-2010) Abnormal ECG When compared with ECG of 05-Apr-2024 17:44, Vent. rate has decreased by 29 bpm Confirmed by Arlene Raymond (Danilo) on 04/10/2024 10:06:11 AM Referred By: REFERRED SELF Confirmed By: Arlene Raymond
[2024-04-10] MEDS: CIPROFLOXACIN 500 MG TAB PO SCH (10:56)
[2024-04-10] MEDS: OPTIRAY 320 125ml IV ONE (12:06)
--- NOTE | 2024-04-10 12:30 | CT Scan Report ---
CT angio chest PE protocol CLINICAL HISTORY: sob TECHNIQUE: Multidetector row helical CT of the chest was performed with angiographic protocol. Brenner l and sagittal reformations were obtained. Coronal and sagittal MIPS were obtained from the axial mikie a set and were submitted for review. Automated dose lowering techniques and/or adjustment according to patient size were utilized for this exam. CT DOSE: 998.57 mGy.cm Comparison: Comparison is made to CT chest 05/27/2022 FINDINGS: Lungs and pleura: Prominent groundglass opacities are seen in the right lower lobe and left dependent lung. Atelectasis is noted. There is a stable 3 mm nodule in the right upper lobe (series 4 image 12 0) stable right upper lobe nodule (image 160 Heart and pericardium: Heart size is normal. No pericardial effusion. Vessels: No evidence of pulmonary embolism. Moderate atherosclerotic disease is seen. Mediastinum and sabra: Unremarkable. Chest wall and lower neck: Unremarkable. Abdomen: Patient is status post cholecystectomy. Bones: Degenerative changes in the thoracic spine. IMPRESSION: 1. No pulmonary embolus. 2. Multifocal groundglass opacities compatible with infectious/inflammatory airways disease. 3. A few stable pulmonary nodules as above. According to Fleischner criteria, no follow-up is requir ed in low risk patients, in high-risk patients, a 12 month follow-up CT can be optionally performed. ACT 112: Negative or not required by law. Electronically signed by: Can Joseph M.D. 04/10/2024 12:29 PM
--- NOTE | 2024-04-10 12:36 | Hospitalist Progress Note ---
Date of Service April 10, 2024 Assessment & Plan (1) Acute respiratory failure with hypoxia: Plan: 68 yo M from [facility] w/ PMH of dyslipidemia, type 2 diabetes, CAD, systolic and diastolic CHF [EF 45% echo 2018 and EF 50 to 50% on echo done in 2022], spina bifida, mild intellectual disability, impulsive disorder, generalized disorder, depression, hypothyroidism, GERD, BPH, hepatitis B infection, CKD who was recently here (Apr 05) for Sepsis 2/2 UTI and discharged back to [facility] on PO antibiotic. Pt was noted to be short of breath at [facility] and wouldn't keep O2 on hence brought back to hospital. He denied any chest pain or cough at presentation. Of note, patient has intellectual disability but able to converse okay though sometimes difficult to understand as per the caregiver. Patient is mostly wheelchair-bound. He can transfer to the wheelchair. He is being managed for the following: Respiratory failure with hypoxia: likely chronic condition iso chronic systolic and diastolic CHF, CHF status at his baseline, doesn't look overtly hypervolemic. Cannot comment on the acuity of the respiratory failure with full certainty, likely chronic given PaO2 has been low in the past ABGs. Patient also appears to have mild vascular congestion in the chest x-ray in the past chronically, partly because of his WC-bound status. He can't follow instructions to do IS. During his recent confinement [April 05], ABG showed pCO2 of 56 and SaO2 of 89%, he was discharged on oxygen, patient did not put oxygen at [facility] and he was brought back to the hospital. D-dimer elevated, pending CTA chest no PE and pending venous doppler ble. CTA chest concern for inflammatory/infectious opacities, likely inflammatory as pt has recently got broad spectrum antibiotic f/b current cipro due to his uti/sepsis in recent admission. Monitor and replete electrolytes. Pt agreed to CTA chest will await for now before deciding on anticoagulation. Pt is a fall risk as well. Admitting physician d/w pt's sister regarding anticoagulation who was agreeable in case pt denies the tests completely. Palliative care consultation to discuss goals of care with patient family may be appropriate if patient continues to be uncooperative during admission. Recent UTI: recently admitted w/ sepsis w/w uti. complete the cipro course x 5 days. Other chronic medical conditions: Continue with/resume home meds as and when able. Chronic systolic and diastolic CHF: EF of 50 to 55% from echo 2022. c/w home lasix, coreg and lisinopril. Diabetes mellitus: Sliding scale insulin while in hospital. recent A1c of 6.7 Hypertension: c/w home meds. Hypothyroidism: Continue Synthroid. GERD: Continue home PPI. Depression, JEAN, compulsive disorder with mild intellectual disability: Continue home venlafaxine, divalproex, buspirone, bupropion, Abilify, doxepin, risperidone and Seroquel. CAD: Continue with home aspirin and beta-kenyatta. BPH: watch of urinary retention. Thrombocytopenia: Chronic, stable. Anemia: Chronic, stable. History of spina bifida DVT prophylaxis: lovenox subcu, monitor platelets. Disposition: Telemetry. PT/OT. CM to assist with DC planning. CODE STATUS: DNR/DNI Please note the above document was generated using voice recognition software. It may contain grammatical, syntax or spelling errors. Any formal questions or concerns about the content, text or information contained within the body of thi s dictation should be directly addressed to the undersigned for clarification. Admission and Anticipated Discharge Date Admission Date: April 09, 2024 Subjective Patient was seen and examined at bedside. Patient was lying in bed, on 3 L of nasal cannula oxygen, NAD, sleeping. Patient briefly woke up to exam, denies pain, was okay with going ahead with CTA chest. ROS not able in detail due to cognition status. Physical Exam Physical Exam: GENERAL: Oriented to place, no respiratory distress, obese SKIN: Pallor,, warm HEENT: Pale palpebral conjunctivae, no ptosis, moist buccal mucosa, partially edentulous, nasal cannula in place NECK : Supple, short neck, no tenderness CHEST : Decreased breath sounds , no tenderness HEART : RRR, no obvious murmurs ABDOMEN: Some distention, no tenderness EXTREMITIES : trace edema, non tender, no other conspicuous deformities noted NEUROLOGIC : Oriented to place, no facial asymmetry, gait and stance not assessed Results & Data Results & Data Vital Signs (Past 12 Hours) Vital Signs Pulse Pulse Resp BP Pulse Ox Pulse Ox O2 Del Method 04/10/24 09:40 58 L 18 183/84 H 95 Nasal Cannula 04/10/24 07:30 65 04/10/24 06:21 57 L 16 188/71 H 96 Nasal Cannula 04/10/24 03:33 57 L 16 146/69 H 93 Nasal Cannula 04/10/24 01:41 Nasal Cannula 04/10/24 01:41 65 18 154/83 H 96 Nasal Cannula 04/10/24 01:41 96 04/10/24 01:00 61 16 145/82 H 97 Nasal Cannula 04/10/24 00:51 62 16 171/91 H 97 Nasal Cannula O2 Del Method O2 Flow Rate O2 Flow Rate 04/10/24 09:40 3 04/10/24 07:30 04/10/24 06:21 3.5 04/10/24 03:33 2 04/10/24 01:41 2 04/10/24 01:41 2 04/10/24 01:41 Room Air 2 04/10/24 01:00 2 04/10/24 00:51 2
[2024-04-10] MEDS: FUROSEMIDE 40 MG TAB PO SCH (14:32)
[2024-04-10] MEDS: ACETAMINOPHEN 325 MG TAB PO PRN (16:31)
[2024-04-10] MEDS: DIVALPROEX EXTENDED RELEASE 500 MG TAB PO SCH (17:48)
--- NOTE | 2024-04-10 18:25 | Ultrasound Report ---
EXAM: US Duplex Bilateral Lower Extremities Veins INDICATION: Rule out DVT TECHNIQUE: Real-time duplex ultrasound scan of the bilateral lower extremity veins integrating B-mode two-dimensional vascular structure, Doppler spectral analysis, color flow Doppler imaging and compression. COMPARISON: No relevant prior studies available. FINDINGS: Limitations: The technologist indicates the left profunda and saphenous veins could not be assessed due to level of patient cooperation. Right deep veins: No DVT in the right common femoral, femoral or popliteal veins. The veins demonstrate normal color flow, are normally compressible, with normal phasic flow and/or augmentation response. Right superficial veins: No abnormality noted. No thrombus in the visualized right great saphenous vein. Left deep veins: No DVT in the left common femoral, femoral or popliteal veins. The veins demonstrate normal color flow, are normally compressible, with normal phasic flow and/or augmentation response. Left superficial veins: Not optimally assessed due to patient motion. Soft tissues: No abnormality noted. IMPRESSION: Limited as above. No deep venous thrombosis of either lower extremity from the groin to the knee identified. ACT 112: Negative or not required by law. Electronically signed by Haleigh Garcia 04-10-2024 6:25 PM
[2024-04-11] MEDS: lisinopril 10 MG TAB PO SCH (09:07)
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
[2024-04-11 11:27] LABS: Hematocrit (blood only) 37.9 % (42.0-52.0); Hemoglobin 12.2 g/dl (14.0-18.0); Mean Corpuscular Hemoglobin 28.2 pg (25.0-34.0); Mean Corpuscular Hgb Conc 32.2 g/dL (32.0-36.0); Mean Corpuscular Volume 87.5 fL (80.0-100.0); Mean Platelet Volume 10.5 fL (9.4-12.4); Nucleated RBC # (auto) 0.02 K/uL (0.00-0.12); Nucleated RBC % (auto) 0.3 %; Platelet Count 156 K/uL (130-400); RDW Coefficient of Variation 17.8 % (11.5-14.5); RDW Standard Deviation 56.6 fL (36.4-46.3); Red Blood Count 4.33 M/uL (4.70-6.10); White Blood Count 6.74 K/ul (4.8-10.8)
[2024-04-11 11:40] LABS: BUN Creatinine Ratio 17.9 (10-20); Calcium 8.9 mg/dl (8.6-10.3); Creatinine Clr Calc Pharmacy 84.2 ml/min; Magnesium 1.8 mg/dl (1.7-2.4); Phosphorus 3.5 mg/dl (2.5-4.9); Potassium 3.8 mmol/L (3.5-5.1)
[2024-04-11] MEDS: hydrALAZINE HCL 20 MG/ML VIAL IV ONE (15:54)
[2024-04-11 16:37] LABS: C Reactive Protein 2.92 mg/dl (0-0.5)
[2024-04-11] MEDS: lisinopril 10 MG TAB PO STA ×2 (16:46→20:29)
[2024-04-11] MEDS: hydrALAZINE HCL 20 MG/ML VIAL IV PRN (17:14)
[2024-04-11] MEDS: hydrALAZINE HCL 20 MG/ML VIAL IV STA (20:28)
[2024-04-11] MEDS: OLANZapine 5 MG TABLET PO STA (20:28)
[2024-04-12] MEDS: lisinopril 10 MG TAB PO SCH (07:31)
[2024-04-12] MEDS ORDERED: lisinopril 20 MG TAB PO SCH (08:00)
[2024-04-12 11:09] VITALS: RESP 18; TEMP 98.1; O2SAT 95
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
[2024-04-12 14:32] VITALS: BP 178/98; PULSE 70
== END 2024-04-12 16:00 | disposition home or self-care (01) | DRG 189 ==
LOC: ED 18:44 → SUATTDRO 22:31 → EDINP 22:31 → 2W 04-10 01:31

== ENCOUNTER 2024-04-19 15:49 | Inpatient (IN) ==
[2024-04-19] MEDS: DEXTROSE 50% 50 ML SYRINGE IV STA (16:25)
[2024-04-19 16:51] LABS: Basophils # (auto) 0.03 K/uL (0.00-0.20); Basophils % (auto) 0.2 %; Hematocrit (blood only) 35.2 % (42.0-52.0); Hemoglobin 11.4 g/dl (14.0-18.0); Immature Granulocytes # (auto) 0.11 K/uL (0.01-0.20); Immature Granulocytes % (auto) 0.8 %; Lymphocytes # (auto) 1.99 K/uL (1.20-3.40); Mean Corpuscular Hemoglobin 28.8 pg (25.0-34.0); Mean Corpuscular Hgb Conc 32.4 g/dL (32.0-36.0); Mean Corpuscular Volume 88.9 fL (80.0-100.0); Mean Platelet Volume 11.3 fL (9.4-12.4); Monocytes # (auto) 2.01 K/uL (0.11-0.59); Monocytes % (auto) 15.2 %; Neutrophils # (auto) 9.11 K/uL (1.40-6.50); Neutrophils % (auto) 68.8 %; Platelet Count 204 K/uL (130-400); RDW Coefficient of Variation 18.1 % (11.5-14.5); RDW Standard Deviation 58.4 fL (36.4-46.3); Red Blood Count 3.96 M/uL (4.70-6.10); White Blood Count 13.25 K/ul (4.8-10.8)
--- NOTE | 2024-04-19 17:00 | Emergency Department Note ---
Impression & Plan Hypoglycemia, Slurred speech, Internal carotid artery stenosis ED Provider Note HISTORY OF PRESENT ILLNESS: Patient is a 68-year-old male presenting with lethargy and reported dizziness. Patient does not supply any meaningful history. EMS reports that they were called because he was complaining of dizziness and seemed more lethargic. His fingerstick glucose for EMS was 62. On arrival to the ER, the patient has no complaints. He did have a fingerstick glucose of 60 and was given oral glucose. One of patient's caretakers from [facility] presents later and provides more history. Reports that the patient has been seemingly confused since his discharge from the hospital on . She states that he seems to be having significant more profound slurred speech and has difficulties reaching for objects he used to be able to grab without difficulties. She states that their facility is concerned he might of had a stroke. They state that today he was leaning forward out of his recliner when he slipped to the ground and bumped the back of his head. No reported loss of consciousness. Reports that the patient seemed altered and confused and so they called 911 to get him evaluated. ROS: as above PHYSICAL EXAM: Constitutional: Patient appears in no acute distress. Morbid obesity HENT: Head: Normocephalic and atraumatic. Eyes: EOMI, PERRL Mouth/Throat: Mucous membranes moist. Neck: Trachea midline. Neck supple. Cardiovascular: RRR, No murmurs, rubs or gallops. Intact distal pulses. Pulmonary/Chest: No respiratory distress. Breath sounds clear and equal bilaterally. No wheezes or rales. Abdominal: Abdomen soft, no tenderness, rebound or guarding. Musculoskeletal: No edema, tenderness or deformity noted. Skin: Warm and dry. No rash, erythema, pallor or cyanosis Neurological: Alert. CN II-XII grossly intact, moving all extremities equally and fully. MDM: - Vitals signs stable - History obtained via EMS and patient's intel analyst. History as above. - Chronic conditions affecting care: GERD; CAD; intellectual disability (cerebral palsy); CHF; DM-2; HTN; HLD - Differential diagnoses include, but are not limited to: CVA; intracranial hemorrhage; ACS; electrolyte abnormality; UTI; viral syndrome; dysrhythmia; UTI - Order placed for continuous cardiac monitoring. At this time, monitor showed rate of 83 bpm with normal sinus rhythm, per my interpretation. - External medical records reviewed. Discharge summary dated 04/12/2024 was reviewed. Patient was admitted that time for acute hypoxic respiratory failure. - EKG interpreted by myself showed normal sinus rhythm. Rate 83 bpm. QT 374. No acute ischemic changes. - Laboratory workup interpreted by myself showed leukocytosis (WBC 13.25) with neutrophil predominance; slight hyponatremia; HESHAM (Cr 1.59); hypoglycemia (glucose 51); normal troponin - CXR negative for pneumonia, per my interpretation. - Viral respiratory panel negative. - UA ordered - Patient was initially given oral glucose on arrival to the ER given his hypoglycemia on fingerstick. The CMP hypoglycemia was obtained on patient's arrival and before his oral glucose administration. He was given an amp of D50 for further hypoglycemia treatment. - Given patient's reported confusion and speech difficulties per his intel analyst, CT imaging of his head and neck was ordered. - CT head wo contrast negative for acute pathology - CTA neck showed severe right ICA stenosis at 70 to 80%. - CTA head negative for acute pathology. - Repeat finger stick glucose down into the 60s. Patient given oral dextrose. He is not on any subcutaneous insulin or an insulin pump. Unclear etiology for his recurrent episodes of hypoglycemia. However, will admit to hospitalist service. - Discussion was had with nurse case manager about patient's case and need for admission - Hospitalist, Dr. Hernandez, consulted for admission - Patient admitted to [facility] hospitalist service for further evaluation and management. ASSESSMENT AND PLAN: Diagnosis: recurrent hypoglycemia; slurred speech; internal carotid artery stenosis Plan: admit Past Med/Surg History Problem List (Updated 04/19/24 @ 19:51 by Lorri Crandall MD) Internal carotid artery stenosis (Acute) Slurred speech (Acute) Hypoglycemia (Acute) Nocturnal hypoxemia Acute dyspnea (Acute) Severe sepsis Acute UTI (Acute) Acute hyponatremia (Acute) Elevated lactic acid level (Acute) Leukocytosis (Acute) Dehydration (Acute) HESHAM (acute kidney injury) (Acute) Hypotension (Acute) Elevated troponin (Acute) Sepsis (Acute) Back pain Closed L2 vertebral fracture (Acute) Pulmonary edema (Acute) Pneumonitis (Acute) Lactic acidemia (Acute) Contrast dye induced nephropathy Acute renal insufficiency Elevated troponin Chronic heart failure with reduced ejection fraction and diastolic dysfunction Elevated troponin I level Acute respiratory failure with hypoxia Influenza A (Acute) Low oxygen saturation Respiratory distress Hypertension (Acute) Intellectual disability (Acute) Acute kidney failure Aspiration into airway (Acute) Airway clearance impairment (Acute) Encounter for pre-operative examination Congestive heart failure (CHF) Acute respiratory failure with hypoxia Aspiration pneumonia DVT prophylaxis Discharge planning issues Psychiatric disorder Intermittent explosive disorder Anxiety disorder, unspecified Depression Oral candidiasis Weakness (Acute) DVT prophylaxis CHF (congestive heart failure) Sepsis (Acute) Severe sepsis Abdominal pain Cholelithiasis Encounter for pre-operative examination History of laparoscopic cholecystectomy Laparoscopic cholecystectomy [address] Wolff Vocal cord paralysis, unilateral complete H/O tooth extraction Coronary artery disease (Chronic) GERD (gastroesophageal reflux disease) (Chronic) Medical History Thrombocytopenia Chronic thrombocytopenia, baseline platelets low 100s per chart review Obesity Cerebral palsy Moderate intellectual disabilities sister/POLesia -ASHLEY IRENE [phone] 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 SIGNS CONSENTS Anemia MRSA (methicillin resistant Staphylococcus aureus) carrier Dysphagia Keratoconus Cataract Arthritis Spina bifida Hypothyroidism Diabetes mellitus, type 2 Chronic ischemic heart disease Hyperlipidemia Hypertension Intermittent explosive disorder Impulse control disorder Severe anxiety Combative behavior Fall Fall risk Surgical History History of esophagogastroduodenoscopy (EGD) History of colonoscopy EGD/colonoscopy (12/07/19): MAC sedation at [facility] History of bronchoscopy Flexible bronchoscopy with BAL (02/04/18): Grade view 1, Elective glidescope #4, ETT 8.5 at [facility] (done for aspiration PNA) Family History Other No significant family history Social History Smoking Status: Never smoker Second Hand Exposure: No; Do You Dip or Chew Tobacco: No; Hx Alcohol Use: No Hx Substance Use: No Preferred Language: Czech Communication Ability: Impaired Communication Ability Comment: 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 Home Meds Home Medications Medication Instructions Recorded Confirmed sennosides 8.6 mg tablet (senna) 8.6 mg PO .DAILY@0800,1800 09/21/18 04/09/24 bupropion HCl 300 mg 24 hr tablet, 300 mg PO .DAILY @0800 05/05/20 04/09/24 extended release aspirin 81 mg chewable tablet 81 mg PO .DAILY @0800 06/09/20 04/09/24 aripiprazole 15 mg tablet (Abilify) 15 mg PO .DAILY @ 0807/31/20 04/09/24 buspirone 15 mg tablet 15 mg PO .DAILY @ 0800,1800 07/31/20 04/09/24 quetiapine 50 mg tablet (Seroquel) 50 mg PO .[id number],1400,1800 07/31/20 04/09/24 doxepin 10 mg capsule 10 mg PO .DAILY @1800 02/07/21 04/09/24 omeprazole 40 mg capsule,delayed 40 mg PO .DAILY@0805/21/21 04/09/24 release divalproex 500 mg tablet,extended 1,500 mg PO UD 04/11/22 04/09/24 release 24 hr multivitamin (Daily-Ezekiel tablet) 1 tab PO .DAILY @ 0804/11/22 04/09/24 risperidone 0.25 mg tablet 0.25 mg PO .DAILY@79904/11/22 04/09/24 venlafaxine 37.5 mg 37.5 mg PO .DAILY@79904/11/22 04/09/24 capsule,extended release 24 hr venlafaxine 75 mg capsule,extended 75 mg PO .DAILY@79904/11/22 04/09/24 release 24 hr furosemide 40 mg tablet 40 mg PO .DAILY @79907/16/22 04/09/24 carvedilol 25 mg tablet 25 mg PO .DAILY @ 0800,1800 12/15/22 04/09/24 empagliflozin 25 mg tablet 25 mg PO .DAILY@0812/15/22 04/09/24 (Jardiance) glimepiride 2 mg tablet 2 mg PO .DAILY@0812/15/22 12/28/24 levothyroxine 100 mcg tablet 100 mcg PO .DAILY@69912/15/22 04/09/24 sucralfate 1 gram tablet 1 g PO .DAILY@79911/27/23 04/09/24 Previous Rx's Medication Instructions Recorded lancets (Lancets,Thin) #50 ea 11/07/19 lisinopril 10 mg tablet 30 mg (3 x 10 mg) PO .DAILY@79904/12/24 #90 tabs Results & Data (ED) Vital Signs Vital Signs - 24 hr 04/19/24 16:04 04/19/24 16:10 04/19/24 16:24 Temperature 36.8 C Temperature Source Oral Pulse Rate 83 84 Pulse Rate [Apical] 82 Pulse Rhythm Regular Pulse Strength Normal Pulse Strength [Apical] Normal Respiratory Rate 18 19 Respiratory Effort / Characteristics Non-Labored Spontaneous Non-Labored Spontaneous Respiratory Depth Normal Normal Respiratory Pattern Regular Regular Blood Pressure [Left Arm] 119/66 Blood Pressure Mean [Left Arm] 83 Pulse Oximetry 95 93 Oxygen Delivery Method Room Air Room Air Sepsis Recent Fever Within 48 Hours No Sepsis New/Unexplained Change in Mental Status No Sepsis Action Taken by Nursing No Action Required 04/19/24 18:28 04/19/24 18:40 Temperature Temperature Source Pulse Rate Pulse Rate [Apical] 86 78 Pulse Rhythm Pulse Strength Pulse Strength [Apical] Normal Normal Respiratory Rate 18 18 Respiratory Effort / Characteristics Non-Labored Spontaneous Non-Labored Spontaneous Respiratory Depth Normal Normal Respiratory Pattern Regular Regular Blood Pressure [Left Arm] 124/66 114/73 Blood Pressure Mean [Left Arm] 85 86 Pulse Oximetry 95 95 Oxygen Delivery Method Room Air Room Air Sepsis Recent Fever Within 48 Hours Sepsis New/Unexplained Change in Mental Status Sepsis Action Taken by Nursing Laboratory Data 04/19/24 16:10 04/19/24 16:10 Lab Results 04/19/24 04/19/24 04/19/24 Range/Units 15:55 16:07 16:10 WBC 13.25 H (4.8-10.8) K/ul RBC 3.96 L (4.70-6.10) M/uL Hgb 11.4 L (14.0-18.0) g/dl Hct 35.2 L (42.0-52.0) % MCV 88.9 (80.0-100.0) fL MCH 28.8 (25.0-34.0) pg MCHC 32.4 (32.0-36.0) g/dL RDW Std Deviation 58.4 H (36.4-46.3) fL RDW Coeff of Josiah 18.1 H (11.5-14.5) % Plt Count 204 (130-400) K/uL MPV 11.3 (9.4-12.4) fL Immature Gran % (Auto) 0.8 % Neut % (Auto) 68.8 % Lymph % (Auto) 15.0 % Ocean % (Auto) 15.2 % Eos % (Auto) 0.0 % Baso % (Auto) 0.2 % Neut # (Auto) 9.11 H (1.40-6.50) K/uL Lymph # (Auto) 1.99 (1.20-3.40) K/uL Ocean # (Auto) 2.01 H (0.11-0.59) K/uL Eos # (Auto) 0.00 (0.00-0.50) K/uL Baso # (Auto) 0.03 (0.00-0.20) K/uL Immature Gran # (Auto) 0.11 (0.01-0.20) K/uL Sodium 134 L (136-145) mmol/L Potassium 4.4 (3.5-5.1) mmol/L Chloride 100 (98-107) mmol/L Carbon Dioxide 26 (21-32) mmol/L Anion Gap 8 (3-11) BUN 20 (6-23) mg/dl Creatinine 1.59 H (0.6-1.4) mg/dl Est Cr Clr Drug Dosing 55.5 ml/min eGFR 47.58 BUN/Creatinine Ratio 12.6 (10-20) Glucose 51 L* (70-99(Fasting)) mg/dl POC Glucose 60 L* 75 (70-99) mg/dl Calcium 9.1 (8.6-10.3) mg/dl Total Bilirubin 0.6 (0.2-1.0) mg/dl AST 35 (13-39) U/L ALT 30 (7-52) U/L Alkaline Phosphatase 58 (34-104) U/L Troponin I High Sens 8.1 (0-20) pg/ml Total Protein 8.6 H (6.0-8.3) gm/dl Albumin 3.5 (3.4-5.0) gm/dl Globulin 5.1 H (2.5-4.0) gm/dl Albumin/Globulin Ratio 0.7 L (0.9-2) Adenovirus (PCR) (NotDetected) B. pertussis DNA (PCR) (NotDetected) B.parapertussis DNA PCR (NotDetected) C. pneumoniae DNA (PCR) (NotDetected) Coronavirus OC43 (PCR) (NotDetected) Coronavirus HKU1 (PCR) (NotDetected) Coronavirus 229E (PCR) (NotDetected) SARS-CoV-2 (PCR) (NotDetected) Coronavirus NL63 (PCR) (NotDetected) Human Metapneumovir PCR (NotDetected) Influenza Type A (PCR) (NotDetected) Influenza Type B (PCR) (NotDetected) M. pneumoniae (PCR) (NotDetected) Parainfluenza 1 (PCR) (NotDetected) Parainfluenza 2 (PCR) (NotDetected) Parainfluenza 3 (PCR) (NotDetected) Parainfluenza 4 (PCR) (NotDetected) RSV (PCR) (NotDetected) Entero/Rhino (PCR) (NotDetected) 04/19/24 04/19/24 04/19/24 Range/Units 17:15 19:45 19:49 WBC (4.8-10.8) K/ul RBC (4.70-6.10) M/uL Hgb (14.0-18.0) g/dl Hct (42.0-52.0) % MCV (80.0-100.0) fL MCH (25.0-34.0) pg MCHC (32.0-36.0) g/dL RDW Std Deviation (36.4-46.3) fL RDW Coeff of Josiah (11.5-14.5) % Plt Count (130-400) K/uL MPV (9.4-12.4) fL Immature Gran % (Auto) % Neut % (Auto) % Lymph % (Auto) % Ocean % (Auto) % Eos % (Auto) % Baso % (Auto) % Neut # (Auto) (1.40-6.50) K/uL Lymph # (Auto) (1.20-3.40) K/uL Ocean # (Auto) (0.11-0.59) K/uL Eos # (Auto) (0.00-0.50) K/uL Baso # (Auto) (0.00-0.20) K/uL Immature Gran # (Auto) (0.01-0.20) K/uL Sodium (136-145) mmol/L Potassium (3.5-5.1) mmol/L Chloride (98-107) mmol/L Carbon Dioxide (21-32) mmol/L Anion Gap (3-11) BUN (6-23) mg/dl Creatinine (0.6-1.4) mg/dl Est Cr Clr Drug Dosing ml/min eGFR BUN/Creatinine Ratio (10-20) Glucose (70-99(Fasting)) mg/dl POC Glucose 122 H 61 L* 58 L* (70-99) mg/dl Calcium (8.6-10.3) mg/dl Total Bilirubin (0.2-1.0) mg/dl AST (13-39) U/L ALT (7-52) U/L Alkaline Phosphatase (34-104) U/L Troponin I High Sens (0-20) pg/ml Total Protein (6.0-8.3) gm/dl Albumin (3.4-5.0) gm/dl Globulin (2.5-4.0) gm/dl Albumin/Globulin Ratio (0.9-2) Adenovirus (PCR) (NotDetected) B. pertussis DNA (PCR) (NotDetected) B.parapertussis DNA PCR (NotDetected) C. pneumoniae DNA (PCR) (NotDetected) Coronavirus OC43 (PCR) (NotDetected) Coronavirus HKU1 (PCR) (NotDetected) Coronavirus 229E (PCR) (NotDetected) SARS-CoV-2 (PCR) (NotDetected) Coronavirus NL63 (PCR) (NotDetected) Human Metapneumovir PCR (NotDetected) Influenza Type A (PCR) (NotDetected) Influenza Type B (PCR) (NotDetected) M. pneumoniae (PCR) (NotDetected) Parainfluenza 1 (PCR) (NotDetected) Parainfluenza 2 (PCR) (NotDetected) Parainfluenza 3 (PCR) (NotDetected) Parainfluenza 4 (PCR) (NotDetected) RSV (PCR) (NotDetected) Entero/Rhino (PCR) (NotDetected) 04/19/24 Range/Units Unknown WBC (4.8-10.8) K/ul RBC (4.70-6.10) M/uL Hgb (14.0-18.0) g/dl Hct (42.0-52.0) % MCV (80.0-100.0) fL MCH (25.0-34.0) pg MCHC (32.0-36.0) g/dL RDW Std Deviation (36.4-46.3) fL RDW Coeff of Josiah (11.5-14.5) % Plt Count (130-400) K/uL MPV (9.4-12.4) fL Immature Gran % (Auto) % Neut % (Auto) % Lymph % (Auto) % Ocean % (Auto) % Eos % (Auto) % Baso % (Auto) % Neut # (Auto) (1.40-6.50) K/uL Lymph # (Auto) (1.20-3.40) K/uL Ocean # (Auto) (0.11-0.59) K/uL Eos # (Auto) (0.00-0.50) K/uL Baso # (Auto) (0.00-0.20) K/uL Immature Gran # (Auto) (0.01-0.20) K/uL Sodium (136-145) mmol/L Potassium (3.5-5.1) mmol/L Chloride (98-107) mmol/L Carbon Dioxide (21-32) mmol/L Anion Gap (3-11) BUN (6-23) mg/dl Creatinine (0.6-1.4) mg/dl Est Cr Clr Drug Dosing ml/min eGFR BUN/Creatinine Ratio (10-20) Glucose (70-99(Fasting)) mg/dl POC Glucose (70-99) mg/dl Calcium (8.6-10.3) mg/dl Total Bilirubin (0.2-1.0) mg/dl AST (13-39) U/L ALT (7-52) U/L Alkaline Phosphatase (34-104) U/L Troponin I High Sens (0-20) pg/ml Total Protein (6.0-8.3) gm/dl Albumin (3.4-5.0) gm/dl Globulin (2.5-4.0) gm/dl Albumin/Globulin Ratio (0.9-2) Adenovirus (PCR) Not Detected (NotDetected) B. pertussis DNA (PCR) Not Detected (NotDetected) B.parapertussis DNA PCR Not Detected (NotDetected) C. pneumoniae DNA (PCR) Not Detected (NotDetected) Coronavirus OC43 (PCR) Not Detected (NotDetected) Coronavirus HKU1 (PCR) Not Detected (NotDetected) Coronavirus 229E (PCR) Not Detected (NotDetected) SARS-CoV-2 (PCR) Not Detected (NotDetected) Coronavirus NL63 (PCR) Not Detected (NotDetected) Human Metapneumovir PCR Not Detected (NotDetected) Influenza Type A (PCR) Not Detected (NotDetected) Influenza Type B (PCR) Not Detected (NotDetected) M. pneumoniae (PCR) Not Detected (NotDetected) Parainfluenza 1 (PCR) Not Detected (NotDetected) Parainfluenza 2 (PCR) Not Detected (NotDetected) Parainfluenza 3 (PCR) Not Detected (NotDetected) Parainfluenza 4 (PCR) Not Detected (NotDetected) RSV (PCR) Not Detected (NotDetected) Entero/Rhino (PCR) Not Detected (NotDetected) Administered Medications Discontinued Medications Dextrose (Dextrose 50% 50 Ml Syringe) 50 ml IV NOW STA Stop: 04/19/24 16:08 Last Admin: 04/19/24 16:25 Dose: 50 ml Documented By: ANTONIO Sodium Chloride (Nss) 500 mls @ 999 mls/hr IV .Q31M ONE Stop: 04/19/24 18:53 Last Admin: 04/19/24 19:00 Dose: 999 mls/hr Documented By: ANTONIO Ioversol (Optiray 320 125ml) 117 ml IV ONCE ONE Stop: 04/19/24 19:00 Last Admin: 04/19/24 18:59 Dose: 117 ml Documented By: YAZMIN Imaging Data Radiologist's Impression: Head CT 04/19/24 18:21 Exam(s): CT HEAD Without Contrast EXAM: CT Head Without Intravenous Contrast CLINICAL HISTORY: Reason for exam: confusion. TECHNIQUE: Axial computed tomography images of the head/brain without intravenous contrast. CTDI is 231.92 mGy and DLP is 3522.62 mGy-cm. Automated exposure control was utilized for the study. A dose lowering technique was utilized adhering to the principles of ALARA. Moderate motion artifact, in spite of repeat scanning COMPARISON: Head CT 04/05/24. FINDINGS: Brain: No mass effect or acute infarct. No acute hemorrhage. Stable atrophy and chronic white matter disease. Ventricles: Stable ventriculomegaly, chronic, may relate to central atrophy. No hydrocephalus or midline shift. Bones/joints: No acute finding. Soft tissues: No scalp hematoma. Visualized Sinuses: Clear. Mastoid air cells: No mastoid effusion. IMPRESSION: 1. Stable age-related findings. 2. No acute infarct, bleed, or acute intracranial abnormality. 3. Grossly stable exam. Motion artifact limits detail. Electronically signed by: Padmini Crisostomo M.D. 04/19/24 19:39 PM Head CTA 04/19/24 18:21 Exam(s): CTA HEAD With Contrast IV Amt: 117 ml optiray 320 EXAM: CT Angiography Head With Intravenous Contrast CLINICAL HISTORY: Reason for exam: confusion. TECHNIQUE: Axial computed tomographic angiography images of the head with intravenous contrast. CTDI is 231.92 mGy and DLP is 3522.62 mGy-cm. Automated exposure control was utilized for the study. A dose lowering technique was utilized adhering to the principles of ALARA. MIP reconstructed images were created and reviewed. Severe motion artifact limits detail. CONTRAST: Patient received 117 ml optiray 320 of IV contrast COMPARISON: Head CT same day. FINDINGS: Right internal carotid artery: Patent. Right anterior cerebral artery: Patent. Right middle cerebral artery: Patent. Right posterior cerebral artery: Patent. Right vertebral artery: Patent. Left internal carotid artery: Patent. Left anterior cerebral artery: Patent. Left middle cerebral artery: Patent. Left posterior cerebral artery: Patent. Left vertebral artery: Patent. Basilar artery: Patent. Other: IMPRESSION: 1. No aneurysm or large vessel occlusion. 2. Limited evaluation due to severe motion artifact. Electronically signed by: Padmini Crisostomo M.D. 04/19/24 19:48 PM Neck CTA 04/19/24 18:21 CR Exam(s): CTA NECK With Contrast IV Amt: 117 ml optiray 320 EXAM: CT Angiography Neck With Intravenous Contrast CLINICAL HISTORY: Reason for exam: confusion. TECHNIQUE: Routine carotid CT angiography protocol was performed with intravenous contrast. NASCET criteria using the distal ICAs for comparison were used for evaluation of stenoses. CTDI is 231.92 mGy and DLP is 3522.62 mGy-cm. Automated exposure control was utilized for the study. A dose lowering technique was utilized adhering to the principles of ALARA. MIP reconstructed images were created and reviewed. CONTRAST: Patient received 117 ml optiray 320 of IV contrast COMPARISON: None. FINDINGS: Right common carotid artery: Patent. Right internal carotid artery: Patent. Atherosclerosis with proximal ICA stenosis, 70-80%. Right vertebral artery: Patent. Codominant. Left common carotid artery: Patent. Left internal carotid artery: Patent. Atherosclerosis with less than 50% stenosis. Left vertebral artery: Patent. Other: IMPRESSION: 1. Severe RIGHT ICA stenosis 70-80%. 2. No other dissection/occlusion/significant stenosis. CAROTID STENOSIS REFERENCE USING NASCET CRITERIA: % ICA stenosis = (1 - narrowest ICA diameter/diameter of distal cervical ICA) x 100. Mild - <50% stenosis. Moderate - 50-69% stenosis. Severe - 70-94% stenosis. Near occlusion - 95-99% stenosis. Occluded - 100% stenosis. Communications: Verify Receipt Electronically signed by: Padmini Crisostomo M.D. 04/19/24 19:47 PM Discharge Plan Visit Data Chief Complaint: Lethargic ED Provider: Lorri Crandall Discharge Problem: Hypoglycemia, Slurred speech, Internal carotid artery stenosis Forms Stand Alone Forms: [employer] Prescriptions Prescriptions: No Action aspirin 81 mg Tablet,Chewable 81 mg PO .DAILY @0800 Rx Instructions: 8 am sennosides [senna] 8.6 mg Tablet 8.6 mg PO .DAILY@0800,1800 (DME) lancets [Lancets,Thin] Misc See Rx Instructions .ROUTE .MEDSUPPLY Qty: 50 2RF Rx Instructions: As directed bupropion HCl 300 mg tablet extended release 24 hr 300 mg PO .DAILY @0800 buspirone 15 mg Tablet 15 mg PO .DAILY @ 0800,1800 Rx Instructions: 8am and 8 pm aripiprazole [Abilify] 15 mg Tablet 15 mg PO .DAILY @ 0800 Rx Instructions: 8 am quetiapine [Seroquel] 50 mg Tablet 50 mg PO .[id number],1400,1800 Rx Instructions: 8am,2pm,8pm doxepin 10 mg Capsule 10 mg PO .DAILY @1800 omeprazole 40 mg Capsule,Delayed Release(Dr/Ec) 40 mg PO .DAILY@0800 Rx Instructions: 7am multivitamin [Daily-Ezekiel] Tablet 1 tab PO .DAILY @ 0800 venlafaxine 37.5 mg capsule,extended release 24hr 37.5 mg PO .DAILY@0800 venlafaxine 75 mg capsule,extended release 24hr 75 mg PO .DAILY@0800 risperidone 0.25 mg tablet 0.25 mg PO .DAILY@0800 divalproex 500 mg tablet extended release 24 hr 1,500 mg PO UD Rx Instructions: faxed medication list has medication listed as 500 mg po at 6pm. Fill history 11/09/23 has directions of 1500 mg (500x3 tablets) po at bedtime furosemide 40 mg tablet 40 mg PO .DAILY @0800 Patient Comments: TAKES 40MG DAILY AND 20MG QPM carvedilol 25 mg tablet 25 mg PO .DAILY @ 0800,1800 glimepiride 2 mg tablet 2 mg PO .DAILY@0800 levothyroxine 100 mcg tablet 100 mcg PO .DAILY@0700 Jardiance 25 mg tablet 25 mg PO .DAILY@0800 lisinopril 10 mg Tablet 30 mg PO .DAILY@0800 Qty: 90 0RF sucralfate 1 gram Tablet 1 g PO .DAILY@0800 Referrals Referrals: Tim Swenson, [Primary Care Provider] -
[2024-04-19 17:23] LABS: Potassium 4.4 mmol/L (3.5-5.1)
[2024-04-19 17:33] LABS: Troponin I High Sensitivity 8.1 pg/ml (0-20)
[2024-04-19 17:34] LABS: Albumin Globulin Ratio 0.7 (0.9-2); Albumin Level 3.5 gm/dl (3.4-5.0); BUN Creatinine Ratio 12.6 (10-20); Bilirubin,Total 0.6 mg/dl (0.2-1.0); Calcium 9.1 mg/dl (8.6-10.3); Creatinine Clr Calc Pharmacy 55.5 ml/min; Globulin 5.1 gm/dl (2.5-4.0); Total Protein 8.6 gm/dl (6.0-8.3)
[2024-04-19 18:08] LABS: Adenovirus PCR Not Detected (NotDetected); Bordetella parapertussis PCR Not Detected (NotDetected); Bordetella pertussis PCR Not Detected (NotDetected); Chlamydia pneumoniae PCR Not Detected (NotDetected); Coronavirus 229E PCR Not Detected (NotDetected); Coronavirus CoV-2 (COVID19)PCR Not Detected (NotDetected); Coronavirus HKU1 PCR Not Detected (NotDetected); Coronavirus NL63 PCR Not Detected (NotDetected); Coronavirus OC43PCR Not Detected (NotDetected); Human Metapneumovirus PCR Not Detected (NotDetected); Influenza A PCR Not Detected (NotDetected); Influenza B PCR Not Detected (NotDetected); Mycoplasma pneumoniae PCR Not Detected (NotDetected); Parainfluenza Virus 1 PCR Not Detected (NotDetected); Parainfluenza Virus 2 PCR Not Detected (NotDetected); Parainfluenza Virus 3 PCR Not Detected (NotDetected); Parainfluenza Virus 4 PCR Not Detected (NotDetected); Respiratory Syncytial VirusPCR Not Detected (NotDetected); Rhinovirus/Enterovirus PCR Not Detected (NotDetected)
[2024-04-19] MEDS: OPTIRAY 320 125ml IV ONE (18:59)
[2024-04-19] MEDS: SODIUM CHLORIDE 0.9% 500 ML IV ONE (19:00)
--- NOTE | 2024-04-19 19:40 | CT Scan Report ---
Exam(s): CT HEAD Without Contrast EXAM: CT Head Without Intravenous Contrast CLINICAL HISTORY: Reason for exam: confusion. TECHNIQUE: Axial computed tomography images of the head/brain without intravenous contrast. CTDI is 231.92 mGy and DLP is 3522.62 mGy-cm. Automated exposure control was utilized for the study. A dose lowering technique was utilized adhering to the principles of ALARA. Moderate motion artifact, in spite of repeat scanning COMPARISON: Head CT 04/05/24. FINDINGS: Brain: No mass effect or acute infarct. No acute hemorrhage. Stable atrophy and chronic white matter disease. Ventricles: Stable ventriculomegaly, chronic, may relate to central atrophy. No hydrocephalus or midline shift. Bones/joints: No acute finding. Soft tissues: No scalp hematoma. Visualized Sinuses: Clear. Mastoid air cells: No mastoid effusion. IMPRESSION: 1. Stable age-related findings. 2. No acute infarct, bleed, or acute intracranial abnormality. 3. Grossly stable exam. Motion artifact limits detail. Electronically signed by: Padmini Crisostomo M.D. 04/19/24 19:39 PM
--- NOTE | 2024-04-19 19:48 | CT Scan Report ---
Exam(s): CTA NECK With Contrast IV Amt: 117 ml optiray 320 EXAM: CT Angiography Neck With Intravenous Contrast CLINICAL HISTORY: Reason for exam: confusion. TECHNIQUE: Routine carotid CT angiography protocol was performed with intravenous contrast. NASCET criteria using the distal ICAs for comparison were used for evaluation of stenoses. CTDI is 231.92 mGy and DLP is 3522.62 mGy-cm. Automated exposure control was utilized for the study. A dose lowering technique was utilized adhering to the principles of ALARA. MIP reconstructed images were created and reviewed. CONTRAST: Patient received 117 ml optiray 320 of IV contrast COMPARISON: None. FINDINGS: Right common carotid artery: Patent. Right internal carotid artery: Patent. Atherosclerosis with proximal ICA stenosis, 70-80%. Right vertebral artery: Patent. Codominant. Left common carotid artery: Patent. Left internal carotid artery: Patent. Atherosclerosis with less than 50% stenosis. Left vertebral artery: Patent. Other: IMPRESSION: 1. Severe RIGHT ICA stenosis 70-80%. 2. No other dissection/occlusion/significant stenosis. CAROTID STENOSIS REFERENCE USING NASCET CRITERIA: % ICA stenosis = (1 - narrowest ICA diameter/diameter of distal cervical ICA) x 100. Mild - <50% stenosis. Moderate - 50-69% stenosis. Severe - 70-94% stenosis. Near occlusion - 95-99% stenosis. Occluded - 100% stenosis. Communications: Verify Receipt Electronically signed by: Padmini Crisostomo M.D. 04/19/24 19:47 PM
--- NOTE | 2024-04-19 19:49 | CT Scan Report ---
Exam(s): CTA HEAD With Contrast IV Amt: 117 ml optiray 320 EXAM: CT Angiography Head With Intravenous Contrast CLINICAL HISTORY: Reason for exam: confusion. TECHNIQUE: Axial computed tomographic angiography images of the head with intravenous contrast. CTDI is 231.92 mGy and DLP is 3522.62 mGy-cm. Automated exposure control was utilized for the study. A dose lowering technique was utilized adhering to the principles of ALARA. MIP reconstructed images were created and reviewed. Severe motion artifact limits detail. CONTRAST: Patient received 117 ml optiray 320 of IV contrast COMPARISON: Head CT same day. FINDINGS: Right internal carotid artery: Patent. Right anterior cerebral artery: Patent. Right middle cerebral artery: Patent. Right posterior cerebral artery: Patent. Right vertebral artery: Patent. Left internal carotid artery: Patent. Left anterior cerebral artery: Patent. Left middle cerebral artery: Patent. Left posterior cerebral artery: Patent. Left vertebral artery: Patent. Basilar artery: Patent. Other: IMPRESSION: 1. No aneurysm or large vessel occlusion. 2. Limited evaluation due to severe motion artifact. Electronically signed by: Padmini Crisostomo M.D. 04/19/24 19:48 PM
[2024-04-19] MEDS: ACETAMINOPHEN 1,000 MG/100 ML VIAL IV STA (20:44)
[2024-04-19 21:15] LABS: Appearance Urine Clear (Clear); Bacteria Urine Automated None Seen (None Seen); Bilirubin Urine Negative (Negative); Blood Urine 1+ (Negative); Cast Urine Automated 0-2 /lpf (0-2); Color Urine Yellow; Epithelial Cell Urine Auto 0-2 /hpf (0-2); Glucose Urine UA 3+ (Negative); Ketones Urine Negative (Negative); Leukocyte Esterase Urine Negative (Negative); Nitrite Urine Negative (Negative); Protein Urine 1+ (Negative); Specific Gravity Urine > 1.045 (1.000-1.030); Urobilinogen Urine Negative (Negative); WBC Urine Automated 0-5 /hpf (0-5)
--- NOTE | 2024-04-19 21:24 | XRay Report ---
Exam(s): XR CXR 1 VIEW EXAM: XR Chest, 1 View CLINICAL HISTORY: Reason for exam: confusion. TECHNIQUE: Frontal view of the chest. COMPARISON: April 09, 2024 FINDINGS: Lungs: Prominent interstitial markings in the mid to lower lungs. No consolidation. Pleural space: Unremarkable. No pneumothorax. Heart: The cardiac silhouette is enlarged, similar to previous. Mediastinum: Unremarkable. Normal mediastinal contour. Bones/joints: Old healed left clavicle fracture. Upper abdomen: Unremarkable as visualized. No pneumoperitoneum under the diaphragm. IMPRESSION: 1. The cardiac silhouette is enlarged, similar to previous. 2. Prominent interstitial markings in the mid to lower lungs. This is similar to previous. Likely mild underlying emphysema. No new infiltrate is identified. Electronically signed by: Ron Rogers MD 04/19/24 21:23 PM
[2024-04-19] MEDS: D5W AND NSS 1,000 ML IV SCH (23:07)
--- NOTE | 2024-04-19 23:08 | History & Physical Report ---
Date of Service April 19, 2024 Assessment & Plan (1) Hypoglycemia: Plan: 68-year-old male comes from [facility] with past medical significant for dyslipidemia, type 2 diabetes, history of CAD, history of systolic and diastolic CHF EF 45% echo 2018 and EF 50 to 50% on echo done in 2022, history of spina bifida, history of mild intellectual disability, impulsive disorder, generalized disorder, depression, hypothyroidism, GERD, BPH, history of prior hepatitis B infection, CKD,presents with complaint of dizziness and slid down from the bed. Caregiver is in the room. As per caregiver since he was discharged on staff having sometimes difficult to understand the patient and they think he might have some slurred speech. As per caregiver for couple of days after discharge from hospital on 04/12/2024 he did not eat much but after that he was eating okay. But today he did not eat his lunch. He complained of dizziness. Then he slid down from the bed when the EMS was called and brought him here. Patient is currently alert and awake and oriented to name and place. He does not know the dates. He denies any headache. Denies chest pain. Denies shortness of breath. Denies nausea. Denies abdominal pain. No cough. No fevers. In the ER he was hypoglycemic. Patient seems comfortable. Patient was recently in the hospital admitted for severe sepsis and UTI and acute encephalopathy from sepsis and was discharged on April 09 on ciprofloxacin and oxygen. He was again admitted same day with acute respiratory failure with hypoxia and was not using oxygen at long-term.. He was discharged back on April 12, 2024 on nocturnal oxygen. As per caregiver patient used oxygen for couple of nights but after that he is not using oxygen as he sleeps on his belly. And staff is checking his oxygen status and as per caregiver he was saturating okay while sleeping . Patient has some redness in the left lower extremity which caregiver thinks more pronounced today.Has wound on the left lower extremity medial aspect above the ankle which the caregiver says because of his scratching the skin. Patient is wheelchair-bound but he can transfer to the wheelchair as per the caregiver. Hypoglycemia Came with dizziness and fall Staff is also worried that he is more difficult to understand than before and they think he may have some slurred speech Symptoms could be from hypoglycemia CT head is okay CTA neck showed severe right ICA stenosis CTA head okay Will hold his home diabetes medication Fluids with dextrose Close monitor the blood sugars Right ICA stenosis Patienton aspirin. can add statin Follow-up with vascular Left lower EXTR cellulitis Left lower extremity wound Wound care Empiric Rocephin Diabetes Holding home meds as patient hyperglycemia Close monitor Sliding scale Nocturnal hypoxemia Patient not using oxygen nightly Will monitor Chronic systolic and diastolic CHF EF 50 to 50% echo in 2022 Holding Lasix Getting gentle fluids Monitor for volume overload HESHAM on CKD Baseline creatinine 1 Presents with creatinine of 1.5 if not improving will hold lisinopril Avoid nephrotoxic agents Follow labs Hypertension On Coreg and lisinopril Will monitor Hypothyroidism On Synthyroid GERD On omeprazole History of depression Generalized anxiety disorder Compulsive disorder and mild intellectual disability On venlafaxine, divalproex, buspirone, bupropion, Abilify and doxepin And also Seroquel and risperidone Will monitor CAD On aspirin and beta-kenyatta History of BPH Monitor for urinary retention History of spina bifida DVT prophylaxis Heparin subcu Disposition Telemetry CODE STATUS DNR/DNI as per my discussion with the caregiver History of Present Illness Chief Complaint: Dizziness ,lethargy and hypoglycemia Primary Care Provider: Tim Swenson DO 68-year-old male comes from [facility] with past medical significant for dyslipidemia, type 2 diabetes, history of CAD, history of systolic and diastolic CHF EF 45% echo 2018 and EF 50 to 50% on echo done in 2022, history of spina bifida, history of mild intellectual disability, impulsive disorder, generalized disorder, depression, hypothyroidism, GERD, BPH, history of prior hepatitis B infection, CKD,presents with complaint of dizziness and slid down from the bed. Caregiver is in the room. As per caregiver since he was discharged on [facility] staff having sometimes difficult to understand the patient and they think he might have some slurred speech. As per caregiver for couple of days after discharge from hospital on 04/12/2024 he did not eat much but after that he was eating okay. But today he did not eat his lunch. He complained of dizziness. Then he slid down from the bed when the EMS was called and brought him here. Patient is currently alert and awake and oriented to name and place. He does not know the dates. He denies any headache. Denies chest pain. Denies shortness of breath. Denies nausea. Denies abdominal pain. No cough. No fevers. In the ER he was hypoglycemic. Patient seems comfortable. Patient was recently in the hospital on admitted for severe sepsis and UTI and acute encephalopathy from sepsis and was discharged on April 09 on ciprofloxacin and oxygen. He was again admitted same day with acute respiratory failure with hypoxia and was not using oxygen at long-term.. He was discharged back on April 12, 2024 on nocturnal oxygen. As per caregiver dez ent used oxygen for couple of nights but after that he is not using oxygen as he sleeps on his belly. And staff is checking his oxygen status and as per caregiver he was saturating okay while sleeping . Patient has some redness in the left lower extremity which caregiver thinks more pronounced today.Has wound on the left lower extremity medial aspect above the ankle which the caregiver says because of his scratching the skin. Patient is wheelchair-bound but he can transfer to the wheelchair as per the caregiver. Past medical history. As mentioned above Past surgical history. Bilateral alveloplasty. Colonoscopy. EGD. EGD with endoscopic ultrasound. Surgical extraction of ruptured tooth. Social history. No smoking. No alcoholism. No drug use. Family history. Mother had diabetes. Heart disorder. Father had heart disorder. Maternal grandfather had stroke. Maternal grandmother had stroke Allergies Allergy/AdvReac Type Severity Reaction Status Date / Time terbinafine Allergy Mild RASH ON Verified 07/23/22 08:56 ARM? Home Medications Medication Instructions Recorded Confirmed Type sennosides 8.6 mg tablet (senna) 8.6 mg PO .BID @ 0800 & 199909/21/18 04/19/24 History lancets (Lancets,Thin) #50 ea 11/07/19 04/19/24 Rx bupropion HCl 300 mg 24 hr tablet, 300 mg PO .DAILY @79905/05/20 04/19/24 History extended release aspirin 81 mg chewable tablet 81 mg PO .DAILY @0806/09/20 04/19/24 History aripiprazole 15 mg tablet (Abilify) 15 mg PO .DAILY @ 0800 07/31/20 04/19/24 History buspirone 15 mg tablet 15 mg PO .BID @ 0800,1800 07/31/20 04/19/24 History quetiapine 50 mg tablet (Seroquel) 50 mg PO .TID 0800,1400,1800 07/31/20 04/19/24 History doxepin 10 mg capsule 10 mg PO .DAILY @ 199902/07/21 04/19/24 History omeprazole 40 mg capsule,delayed 40 mg PO .DAILY@69905/21/21 04/19/24 History release divalproex 500 mg tablet,extended 1,500 mg PO HS 04/11/22 04/19/24 History release 24 hr multivitamin (Daily-Ezekiel tablet) 1 tab PO .DAILY @ 79904/11/22 04/19/24 History risperidone 0.25 mg tablet 0.25 mg PO .DAILY@79904/11/22 04/19/24 History venlafaxine 37.5 mg 37.5 mg PO .DAILY@79904/11/22 04/19/24 History capsule,extended release 24 hr venlafaxine 75 mg capsule,extended 75 mg PO .DAILY@79904/11/22 04/19/24 History release 24 hr furosemide 40 mg tablet 40 mg PO .DAILY @79907/16/22 04/19/24 History carvedilol 25 mg tablet 25 mg PO .BID @ 0800,1800 12/15/22 04/19/24 History empagliflozin 25 mg tablet 25 mg PO .DAILY@79912/15/22 04/19/24 History (Jardiance) glimepiride 2 mg tablet 2 mg PO .DAILY@79912/15/22 04/19/24 History levothyroxine 100 mcg tablet 100 mcg PO .DAILY@69912/15/22 04/19/24 History sucralfate 1 gram tablet 1 g PO .DAILY@79911/27/23 04/19/24 History lisinopril 10 mg tablet 30 mg (3 x 10 mg) PO .DAILY@79904/12/24 04/19/24 Rx #90 tabs Past Med/Surg History Problem List (Updated 04/19/24 @ 19:51 by Lorri Crandall MD) Internal carotid artery stenosis (Acute) Slurred speech (Acute) Hypoglycemia (Acute) Nocturnal hypoxemia Acute dyspnea (Acute) Severe sepsis Acute UTI (Acute) Acute hyponatremia (Acute) Elevated lactic acid level (Acute) Leukocytosis (Acute) Dehydration (Acute) HESHAM (acute kidney injury) (Acute) Hypotension (Acute) Elevated troponin (Acute) Sepsis (Acute) Back pain Closed L2 vertebral fracture (Acute) Pulmonary edema (Acute) Pneumonitis (Acute) Lactic acidemia (Acute) Contrast dye induced nephropathy Acute renal insufficiency Elevated troponin Chronic heart failure with reduced ejection fraction and diastolic dysfunction Elevated troponin I level Acute respiratory failure with hypoxia Influenza A (Acute) Low oxygen saturation Respiratory distress Hypertension (Acute) Intellectual disability (Acute) Acute kidney failure Aspiration into airway (Acute) Airway clearance impairment (Acute) Encounter for pre-operative examination Congestive heart failure (CHF) Acute respiratory failure with hypoxia Aspiration pneumonia DVT prophylaxis Discharge planning issues Psychiatric disorder Intermittent explosive disorder Anxiety disorder, unspecified Depression Oral candidiasis Weakness (Acute) DVT prophylaxis CHF (congestive heart failure) Sepsis (Acute) Severe sepsis Abdominal pain Cholelithiasis Encounter for pre-operative examination History of laparoscopic cholecystectomy Laparoscopic cholecystectomy [address] Wolff Vocal cord paralysis, unilateral complete H/O tooth extraction Coronary artery disease (Chronic) GERD (gastroesophageal reflux disease) (Chronic) Medical History Thrombocytopenia Chronic thrombocytopenia, baseline platelets low 100s per chart review Obesity Cerebral palsy Moderate intellectual disabilities sister/POA -ASHLEY IRENE [phone]-STRAWBERRY CRUZ 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 SIGNS CONSENTS Anemia MRSA (methicillin resistant Staphylococcus aureus) carrier Dysphagia Keratoconus Cataract Arthritis Spina bifida Hypothyroidism Diabetes mellitus, type 2 Chronic ischemic heart disease Hyperlipidemia Hypertension Intermittent explosive disorder Impulse control disorder Severe anxiety Combative behavior Fall Fall risk Surgical History History of esophagogastroduodenoscopy (EGD) History of colonoscopy EGD/colonoscopy (12/07/19): MAC sedation at [facility] History of bronchoscopy Flexible bronchoscopy with BAL (02/04/18): Grade view 1, Elective glidescope #4, ETT 8.5 at [facility] (done for aspiration PNA) Family History Other No significant family history Social History Smoking Status: Never smoker Second Hand Exposure: No; Do You Dip or Chew Tobacco: No; Tobacco Cessation Education Requested by Patient: No Hx Alcohol Use: No Hx Substance Use: No Preferred Language: Spanish Communication Ability: Effective Communication Ability Comment: PT IS INTELLECTUALLY IMPAIRED Scrape Gatherer Required: No Beliefs That Will Affect Care: None marital status: Single Current Living Situation: Other Current Living Situation Comment: [facility] current occupational status: disabled Feels Safe at Home: Yes Safety Concerns: Feels Safe At This Time Assistive Devices: Wheelchair Review of Systems Review of Systems: All systems reviewed & are unremarkable except as noted in HPI & below Physical Exam Physical Exam: General- Not in acute distress Head- atraumatic Eyes- PERRL. ENT- oropharynx clear Neck- supple, no JVD. Lungs- clear to auscultation no wheezing or crackles Heart- regular rhythm; no murmur, no gallop. Abdomen- normal bowel sounds, soft, nontender, no distension Extremities- b/l lower extremity edema present, left dital leg erythematous and wound seen medial aspect above ankle Neuro- alert, oriented x 2; PERRL, no facial palsy; no dysarthria; moves extremities Results & Data Results & Data Vital Signs (Past 12 Hours) Vital Signs Temp Pulse Pulse Resp BP Pulse Ox O2 Del Method 04/19/24 22:00 87 18 123/82 92 Room Air 04/19/24 20:47 88 24 138/72 96 Room Air 04/19/24 20:11 83 04/19/24 18:40 78 18 114/73 95 Room Air 04/19/24 18:28 86 18 124/66 95 Room Air 04/19/24 16:24 84 04/19/24 16:10 82 19 119/66 93 Room Air 04/19/24 16:04 36.8 C 83 18 95 Room Air Diagnostic Findings Laboratory Results WBC 13.25 K/ul (4.8-10.8) H 04/19/24 16:10 RBC 3.96 M/uL (4.70-6.10) L 04/19/24 16:10 Hgb 11.4 g/dl (14.0-18.0) L 04/19/24 16:10 Hct 35.2 % (42.0-52.0) L 04/19/24 16:10 MCV 88.9 fL (80.0-100.0) 04/19/24 16:10 MCH 28.8 pg (25.0-34.0) 04/19/24 16:10 MCHC 32.4 g/dL (32.0-36.0) 04/19/24 16:10 RDW Std Deviation 58.4 fL (36.4-46.3) H 04/19/24 16:10 RDW Coeff of Josiah 18.1 % (11.5-14.5) H 04/19/24 16:10 Plt Count 204 K/uL (130-400) 04/19/24 16:10 MPV 11.3 fL (9.4-12.4) 04/19/24 16:10 Immature Gran % (Auto) 0.8 % 04/19/24 16:10 Neut % (Auto) 68.8 % 04/19/24 16:10 Lymph % (Auto) 15.0 % 04/19/24 16:10 Kidder % (Auto) 15.2 % 04/19/24 16:10 Eos % (Auto) 0.0 % 04/19/24 16:10 Baso % (Auto) 0.2 % 04/19/24 16:10 Neut # (Auto) 9.11 K/uL (1.40-6.50) H 04/19/24 16:10 Lymph # (Auto) 1.99 K/uL (1.20-3.40) 04/19/24 16:10 Kidder # (Auto) 2.01 K/uL (0.11-0.59) H 04/19/24 16:10 Eos # (Auto) 0.00 K/uL (0.00-0.50) 04/19/24 16:10 Baso # (Auto) 0.03 K/uL (0.00-0.20) 04/19/24 16:10 Immature Gran # (Auto) 0.11 K/uL (0.01-0.20) 04/19/24 16:10 Sodium 134 mmol/L (136-145) L 04/19/24 16:10 Potassium 4.4 mmol/L (3.5-5.1) 04/19/24 16:10 Chloride 100 mmol/L (98-107) 04/19/24 16:10 Carbon Dioxide 26 mmol/L (21-32) 04/19/24 16:10 Anion Gap 8 (3-11) 04/19/24 16:10 BUN 20 mg/dl (6-23) 04/19/24 16:10 Creatinine 1.59 mg/dl (0.6-1.4) H 04/19/24 16:10 Est Cr Clr Drug Dosing 55.5 ml/min 04/19/24 16:10 eGFR 47.58 04/19/24 16:10 BUN/Creatinine Ratio 12.6 (10-20) 04/19/24 16:10 Glucose 51 mg/dl (70-99(Fasting)) L* 04/19/24 16:10 POC Glucose 119 mg/dl (70-99) H 04/19/24 22:51 Calcium 9.1 mg/dl (8.6-10.3) 04/19/24 16:10 Total Bilirubin 0.6 mg/dl (0.2-1.0) 04/19/24 16:10 AST 35 U/L (13-39) 04/19/24 16:10 ALT 30 U/L (7-52) 04/19/24 16:10 Alkaline Phosphatase 58 U/L (34-104) 04/19/24 16:10 Troponin I High Sens 8.1 pg/ml (0-20) 04/19/24 16:10 Total Protein 8.6 gm/dl (6.0-8.3) H 04/19/24 16:10 Albumin 3.5 gm/dl (3.4-5.0) 04/19/24 16:10 Globulin 5.1 gm/dl (2.5-4.0) H 04/19/24 16:10 Albumin/Globulin Ratio 0.7 (0.9-2) L 04/19/24 16:10 Urine Color Yellow 04/19/24 20:50 Urine Appearance Clear (Clear) 04/19/24 20:50 Urine pH 7.0 (4.5-7.5) 04/19/24 20:50 Ur Specific [place] > 1.045 (1.000-1.030) H 04/19/24 20:50 Urine Protein 1+ (Negative) H 04/19/24 20:50 Urine Glucose (UA) 3+ (Negative) H 04/19/24 20:50 Urine Ketones Negative (Negative) 04/19/24 20:50 Urine Blood 1+ (Negative) H 04/19/24 20:50 Urine Nitrite Negative (Negative) 04/19/24 20:50 Urine Bilirubin Negative (Negative) 04/19/24 20:50 Urine Urobilinogen Negative (Negative) 04/19/24 20:50 Ur Leukocyte Esterase Negative (Negative) 04/19/24 20:50 Urine WBC (Auto) 0-5 /hpf (0-5) 04/19/24 20:50 Urine RBC (Auto) 11-20 /hpf (0-2) H 04/19/24 20:50 U Hyaline Cast (Auto) 0-2 /lpf (0-2) 04/19/24 20:50 U Epithel Cells (Auto) 0-2 /hpf (0-2) 04/19/24 20:50 Urine Bacteria (Auto) None Seen (None Seen) 04/19/24 20:50 Adenovirus (PCR) Not Detected (NotDetected) 04/19/24 Unknown B. pertussis DNA (PCR) Not Detected (NotDetected) 04/19/24 Unknown B.parapertussis DNA PCR Not Detected (NotDetected) 04/19/24 Unknown C. pneumoniae DNA (PCR) Not Detected (NotDetected) 04/19/24 Unknown Coronavirus OC43 (PCR) Not Detected (NotDetected) 04/19/24 Unknown Coronavirus HKU1 (PCR) Not Detected (NotDetected) 04/19/24 Unknown Coronavirus 229E (PCR) Not Detected (NotDetected) 04/19/24 Unknown SARS-CoV-2 (PCR) Not Detected (NotDetected) 04/19/24 Unknown Coronavirus NL63 (PCR) Not Detected (NotDetected) 04/19/24 Unknown Human Metapneumovir PCR Not Detected (NotDetected) 04/19/24 Unknown Influenza Type A (PCR) Not Detected (NotDetected) 04/19/24 Unknown Influenza Type B (PCR) Not Detected (NotDetected) 04/19/24 Unknown M. pneumoniae (PCR) Not Detected (NotDetected) 04/19/24 Unknown Parainfluenza 1 (PCR) Not Detected (NotDetected) 04/19/24 Unknown Parainfluenza 2 (PCR) Not Detected (NotDetected) 04/19/24 Unknown Parainfluenza 3 (PCR) Not Detected (NotDetected) 04/19/24 Unknown Parainfluenza 4 (PCR) Not Detected (NotDetected) 04/19/24 Unknown RSV (PCR) Not Detected (NotDetected) 04/19/24 Unknown Entero/Rhino (PCR) Not Detected (NotDetected) 04/19/[address] 04/19/24 18:21 Exam(s): CT HEAD Without Contrast EXAM: CT Head Without Intravenous Contrast CLINICAL HISTORY: Reason for exam: confusion. TECHNIQUE: Axial computed tomography images of the head/brain without intravenous contrast. CTDI is 231.92 mGy and DLP is 3522.62 mGy-cm. Automated exposure control was utilized for the study. A dose lowering technique was utilized adhering to the principles of ALARA. Moderate motion artifact, in spite of repeat scanning COMPARISON: Head CT 04/05/24. FINDINGS: Brain: No mass effect or acute infarct. No acute hemorrhage. Stable atrophy and chronic white matter disease. Ventricles: Stable ventriculomegaly, chronic, may relate to central atrophy. No hydrocephalus or midline shift. Bones/joints: No acute finding. Soft tissues: No scalp hematoma. Visualized Sinuses: Clear. Mastoid air cells: No mastoid effusion. IMPRESSION: 1. Stable age-related findings. 2. No acute infarct, bleed, or acute intracranial abnormality. 3. Grossly stable exam. Motion artifact limits detail. Electronically signed by: Padmini Crisostomo M.D. 04/19/24 19:39 PM Head CTA 04/19/24 18:21 Exam(s): CTA HEAD With Contrast IV Amt: 117 ml optiray 320 EXAM: CT Angiography Head With Intravenous Contrast CLINICAL HISTORY: Reason for exam: confusion. TECHNIQUE: Axial computed tomographic angiography images of the head with intravenous contrast. CTDI is 231.92 mGy and DLP is 3522.62 mGy-cm. Automated exposure control was utilized for the study. A dose lowering technique was utilized adhering to the principles of ALARA. MIP reconstructed images were created and reviewed. Severe motion artifact limits detail. CONTRAST: Patient received 117 ml optiray 320 of IV contrast COMPARISON: Head CT same day. FINDINGS: Right internal carotid artery: Patent. Right anterior cerebral artery: Patent. Right middle cerebral artery: Patent. Right posterior cerebral artery: Patent. Right vertebral artery: Patent. Left internal carotid artery: Patent. Left anterior cerebral artery: Patent. Left middle cerebral artery: Patent. Left posterior cerebral artery: Patent. Left vertebral artery: Patent. Basilar artery: Patent. Other: IMPRESSION: 1. No aneurysm or large vessel occlusion. 2. Limited evaluation due to severe motion artifact. Electronically signed by: Padmini Crisostomo M.D. 04/19/24 19:48 PM Neck CTA 04/19/24 18:21 CR Exam(s): CTA NECK With Contrast IV Amt: 117 ml optiray 320 EXAM: CT Angiography Neck With Intravenous Contrast CLINICAL HISTORY: Reason for exam: confusion. TECHNIQUE: Routine carotid CT angiography protocol was performed with intravenous contrast. NASCET criteria using the distal ICAs for comparison were used for evaluation of stenoses. CTDI is 231.92 mGy and DLP is 3522.62 mGy-cm. Automated exposure control was utilized for the study. A dose lowering technique was utilized adhering to the principles of ALARA. MIP reconstructed images were created and reviewed. CONTRAST: Patient received 117 ml optiray 320 of IV contrast COMPARISON: None. FINDINGS: Right common carotid artery: Patent. Right internal carotid artery: Patent. Atherosclerosis with proximal ICA stenosis, 70-80%. Right vertebral artery: Patent. Codominant. Left common carotid artery: Patent. Left internal carotid artery: Patent. Atherosclerosis with less than 50% stenosis. Left vertebral artery: Patent. Other: IMPRESSION: 1. Severe RIGHT ICA stenosis 70-80%. 2. No other dissection/occlusion/significant stenosis. CAROTID STENOSIS REFERENCE USING NASCET CRITERIA: % ICA stenosis = (1 - narrowest ICA diameter/diameter of distal cervical ICA) x 100. Mild - <50% stenosis. Moderate - 50-69% stenosis. Severe - 70-94% stenosis. Near occlusion - 95-99% stenosis. Occluded - 100% stenosis. Communications: Verify Receipt Electronically signed by: Padmini Crisostomo M.D. 04/19/24 19:47 PM Chest X-Ray 04/19/24 19:09 Exam(s): XR CXR 1 VIEW EXAM: XR Chest, 1 View CLINICAL HISTORY: Reason for exam: confusion. TECHNIQUE: Frontal view of the chest. COMPARISON: April 09, 2024 FINDINGS: Lungs: Prominent interstitial markings in the mid to lower lungs. No consolidation. Pleural space: Unremarkable. No pneumothorax. Heart: The cardiac silhouette is enlarged, similar to previous. Mediastinum: Unremarkable. Normal mediastinal contour. Bones/joints: Old healed left clavicle fracture. Upper abdomen: Unremarkable as visualized. No pneumoperitoneum under the diaphragm. IMPRESSION: 1. The cardiac silhouette is enlarged, similar to previous. 2. Prominent interstitial markings in the mid to lower lungs. This is similar to previous. Likely mild underlying emphysema. No new infiltrate is identified. Electronically signed by: Ron Rogers MD 04/19/24 21:23 PM ECG Additional Comments: ECG. Normal sinus rhythm with rate of 83. Inferior infarct age indeterminate.. QTc 439 Code Status & VTE Plan VTE Prophylaxis Plan VTE Prophylaxis will be ordered: Yes
[2024-04-20] MEDS ORDERED: GLUCOSE 40% GEL 15 GM TUBE PO PRN (00:35)
[2024-04-20] MEDS ORDERED: CARBOHYDRATES FOR HYPOGLYCEMIA PO PRN (00:35)
[2024-04-20] MEDS ORDERED: GLUCOSE 10 TAB/TUBE PO PRN (00:35)
[2024-04-20] MEDS ORDERED: GLUCAGON FOR INJ 1 MG VIAL SQ PRN (00:35)
[2024-04-20] MEDS ORDERED: POLYETHYLENE (MIRALAX) 17 GM PACK PO PRN (00:35)
[2024-04-20] MEDS ORDERED: NITROGLYCERIN SL 0.4 MG/TAB TAB SL PRN (00:35)
[2024-04-20] MEDS ORDERED: DEXTROSE 50% 50 ML SYRINGE IV PRN (00:35)
[2024-04-20] MEDS: INSULIN ASPART PER UNIT CHARGE SC SCH (00:47)
[2024-04-20] MEDS: cefTRIAXone SODIUM 2,000 MG/50 ML BAG IV SCH (01:40)
[2024-04-20 06:09] LABS: Basophils # (auto) 0.02 K/uL (0.00-0.20); Basophils % (auto) 0.2 %; Eosinophils # (auto) 0.02 K/uL (0.00-0.50); Eosinophils % (auto) 0.2 %; Hematocrit (blood only) 32.2 % (42.0-52.0); Hemoglobin 10.3 g/dl (14.0-18.0); Immature Granulocytes # (auto) 0.11 K/uL (0.01-0.20); Immature Granulocytes % (auto) 1.1 %; Lymphocytes # (auto) 2.38 K/uL (1.20-3.40); Mean Corpuscular Hemoglobin 28.4 pg (25.0-34.0); Mean Corpuscular Volume 88.7 fL (80.0-100.0); Mean Platelet Volume 10.6 fL (9.4-12.4); Monocytes # (auto) 2.11 K/uL (0.11-0.59); Monocytes % (auto) 21.3 %; Neutrophils # (auto) 5.28 K/uL (1.40-6.50); Neutrophils % (auto) 53.2 %; Platelet Count 144 K/uL (130-400); RDW Coefficient of Variation 18.4 % (11.5-14.5); RDW Standard Deviation 59.1 fL (36.4-46.3); Red Blood Count 3.63 M/uL (4.70-6.10); White Blood Count 9.92 K/ul (4.8-10.8)
[2024-04-20] MEDS: HEPARIN SOD 5,000 UNIT/0.5 ML VIAL SQ SCH (06:11)
[2024-04-20 06:12] LABS: BUN Creatinine Ratio 13.8 (10-20); Calcium 8.2 mg/dl (8.6-10.3); Creatinine Clr Calc Pharmacy 69.1 ml/min; Magnesium 2.1 mg/dl (1.7-2.4); Potassium 3.8 mmol/L (3.5-5.1)
[2024-04-20] MEDS: VENLAFAXINE HCL XR 75 MG CAPXR PO SCH (07:48)
[2024-04-20] MEDS: LEVOTHYROXINE SODIUM 100 MCG TABLET PO SCH (07:48)
[2024-04-20] MEDS: carvediloL 25 MG TAB PO SCH (07:48)
[2024-04-20] MEDS: buPROPion XL 300 MG TABCR PO SCH (07:48)
[2024-04-20] MEDS: lisinopril 10 MG TAB PO SCH (07:48)
[2024-04-20] MEDS: ASPIRIN 81 MG CHEW PO SCH (07:48)
[2024-04-20] MEDS: QUEtiapine FUMARATE 25 MG TABLET PO SCH (07:48)
[2024-04-20] MEDS: busPIRone 15 MG TAB PO SCH (07:49)
[2024-04-20] MEDS: MULTIVITAMIN TAB PO SCH (07:49)
[2024-04-20] MEDS: risperiDONE 0.25 MG TAB PO SCH (07:49)
[2024-04-20] MEDS: PANTOprazole 40 MG TAB PO SCH (07:49)
[2024-04-20] MEDS: VENLAFAXINE HCL XR 37.5 MG CAPXR PO SCH (07:49)
[2024-04-20] MEDS: SUCRALFATE 1 GM TAB PO SCH (07:49)
[2024-04-20] MEDS: ARIPiprazole 15 MG TAB PO SCH (07:49)
[2024-04-20 09:13] LABS: Estimated Average Glucose 137 mg/dl; Hemoglobin A1C 6.4 % (4.5-5.6)
[2024-04-20] MEDS: SENNA 8.6 MG TAB PO SCH (11:24)
--- NOTE | 2024-04-20 12:53 | Hospitalist Progress Note ---
Date of Service April 20, 2024 Assessment & Plan (1) Hypoglycemia: Plan: 68 yo M from [place] w/ PMH for dyslipidemia, type 2 diabetes, history of CAD, history of systolic and diastolic CHF EF 45% echo 2018 and EF 50 to 50% on echo done in 2022, history of spina bifida, history of mild intellectual disability, impulsive disorder, generalized disorder, depression, hypothyroidism, GERD, BPH, history of prior hepatitis B infection, CKD presents with complaint of dizziness and slid down from the bed. As per caregiver since he was discharged on staff having sometimes difficult to understand the patient and they think he might have some slurred speech. As per caregiver for couple of days after discharge from hospital on 04/12/2024 he did not eat much but after that he was eating okay. But on the day of presentation, he did not eat his lunch. He complained of dizziness. Then he slid down from the bed when the EMS was called and brought him here. In the ER he was hypoglycemic. Of note, Patient was recently in the hospital admitted for severe sepsis and UTI and acute encephalopathy from sepsis and was discharged on April 09 on ciprofloxacin and oxygen. He was again admitted same day with hypoxia iso pt's noncompliance w/ NC O2 use. He was discharged back on April 12, 2024 on nocturnal oxygen. As per caregiver patient used oxygen for couple of nights but after that he is not using oxygen as he sleeps on his belly. And staff is checking his oxygen status and as per caregiver he was saturating okay while sleeping. Patient has some redness in the left lower extremity which caregiver thinks more pronounced on presentation day. Has wound on the left lower extremity medial aspect above the ankle which the caregiver says because of his scratching the skin. Patient is wheelchair-bound but he can transfer to the wheelchair as per the caregiver. He is being managed for the following: Hypoglycemia HO T2DM on oral meds Came with dizziness and fall likely iso infection and hypoglycemia Admitting bl gl of 51. A1c 6.4 this admission Home DM meds are jardiance and glimepiride. Concern of slurred speech per nurse healthcare manager, likely 2/2 hypoglycemia and weakness from infection. CT Head is wnl. CTA neck w/ severe rt ICA stenosis. CTA Head ok. SSI while in hopsital DC glimepiride on dc, f/u A1c in 3 months. Left lower EXTR cellulitis Left lower extremity wound Wound care [facility] Rocephin sent blood culture 04/20. HESHAM on CKD: Baseline creatinine 1. Presents with creatinine of 1.59, IVF running, Cr improving. labs in am, hold lasix Right ICA stenosis: Patient on aspirin. c/w statin. Follow-up with vascular as OP. Nocturnal hypoxemia: Patient not using oxygen nightly, noncompliant. Will monitor Chronic systolic and diastolic CHF EF 50 to 50% echo in 2022 Holding Lasix, resume lasix likely donavon Getting gentle fluids Monitor for volume overload Hypertension: On Coreg and lisinopril. Will monitor Hypothyroidism: On Synthyroid GERD: On omeprazole History of depression Generalized anxiety disorder Compulsive disorder and mild intellectual disability On venlafaxine, divalproex, buspirone, bupropion, Abilify and doxepin And also Seroquel and risperidone Will monitor CAD: On aspirin and beta-kenyatta History of BPH: Monitor for urinary retention History of spina bifida DVT prophylaxis: Heparin subcu Disposition: Telemetry CODE STATUS DNR/DNI Admission and Anticipated Discharge Date Admission Date: April 19, 2024 Subjective Patient was seen and examined at bedside. Patient's caregiver at bedside was also updated on plan of care, she states that patient is mentating better than at presentation. Patient is oriented to self and place, denies pain, denies cough or sore throat or chest pain. Per RN no new acute event overnight, patient is eating okay, has somewhat improved mentation. Physical Exam Physical Exam: General- Not in acute distress Head- atraumatic Eyes- PERRL. ENT- oropharynx clear Neck- supple, no JVD. Lungs- clear to auscultation no wheezing or crackles Heart- regular rhythm; no murmur, no gallop. Abdomen- normal bowel sounds, soft, nontender, no distension Extremities- trace ble edema, left distal leg erythematous and wound seen medial aspect above ankle Neuro- alert, oriented x 2; PERRL, no facial palsy; no dysarthria; moves extremities Results & Data Results & Data Vital Signs (Past 12 Hours) Vital Signs Temp Pulse Pulse Resp BP BP Pulse Ox 04/20/24 10:34 36.9 C 66 19 110/59 L 95 04/20/24 09:42 04/20/24 07:31 70 04/20/24 07:13 36.8 C 95 H 18 159/84 H 93 04/20/24 03:34 36.8 C 74 18 153/74 H 95 04/20/24 00:49 37.2 C 80 20 132/72 94 O2 Del Method 04/20/24 10:34 Room Air 04/20/24 09:42 Room Air 04/20/24 07:31 04/20/24 07:13 Room Air 04/20/24 03:34 Room Air 04/20/24 00:49 Room Air
[2024-04-20] MEDS: DOXEPIN HCL 10 MG CAPSULE PO SCH (20:55)
[2024-04-20] MEDS: DIVALPROEX EXTENDED RELEASE 500 MG TAB PO SCH (20:58)
--- NOTE | 2024-04-21 06:27 | Electrocardiogram Report ---
Test Reason : Blood Pressure : */* mmHG Vent. Rate : 83 BPM Atrial Rate : 83 BPM P-R Int : 178 ms QRS Dur : 88 ms QT Int : 374 ms P-R-T Axes : 61 40 49 degrees QTcB Int : 439 ms Normal sinus rhythm Inferior infarct , age undetermined Anterior infarct (cited on or before 10-Jun-2010) Abnormal ECG When compared with ECG of 09-Apr-2024 19:21, Nonspecific T wave abnormality no longer evident in Anterior leads Confirmed by Ru Randall [id number] on 04/21/2024 6:26:45 AM Referred By: REFERRED SELF Confirmed By: Ru Randall
[2024-04-21 08:06] LABS: Hematocrit (blood only) 33.6 % (42.0-52.0); Hemoglobin 10.8 g/dl (14.0-18.0); Mean Corpuscular Hemoglobin 28.9 pg (25.0-34.0); Mean Corpuscular Hgb Conc 32.1 g/dL (32.0-36.0); Mean Corpuscular Volume 89.8 fL (80.0-100.0); Mean Platelet Volume 11.7 fL (9.4-12.4); Platelet Count 159 K/uL (130-400); RDW Coefficient of Variation 17.7 % (11.5-14.5); RDW Standard Deviation 58.7 fL (36.4-46.3); Red Blood Count 3.74 M/uL (4.70-6.10); White Blood Count 6.18 K/ul (4.8-10.8)
[2024-04-21] MEDS: ATORVASTATIN 20 MG TAB PO SCH (08:11)
[2024-04-21 08:37] LABS: BUN Creatinine Ratio 11.8 (10-20); Calcium 8.9 mg/dl (8.6-10.3); Chol HDL Ratio 6.3 (0-5); Creatinine Clr Calc Pharmacy 75.5 ml/min; Magnesium 2.3 mg/dl (1.7-2.4); Phosphorus 3.7 mg/dl (2.5-4.9); Potassium 4.3 mmol/L (3.5-5.1)
[2024-04-21] MEDS: FUROSEMIDE 40 MG TAB PO SCH (09:43)
[2024-04-21] MEDS: ACETAMINOPHEN 325 MG TAB PO PRN (11:18)
--- NOTE | 2024-04-21 16:02 | Hospitalist Progress Note ---
Date of Service April 21, 2024 Assessment & Plan (1) Hypoglycemia: Plan: 68 yo M from [place] w/ PMH for dyslipidemia, type 2 diabetes, history of CAD, history of systolic and diastolic CHF EF 45% echo 2018 and EF 50 to 50% on echo done in 2022, history of spina bifida, history of mild intellectual disability, impulsive disorder, generalized disorder, depression, hypothyroidism, GERD, BPH, history of prior hepatitis B infection, CKD presents with complaint of dizziness and slid down from the bed. As per caregiver since he was discharged on staff having sometimes difficult to understand the patient and they think he might have some slurred speech. As per caregiver for couple of days after discharge from hospital on 04/12/2024 he did not eat much but after that he was eating okay. But on the day of presentation, he did not eat his lunch. He complained of dizziness. Then he slid down from the bed when the EMS was called and brought him here. In the ER he was hypoglycemic. Of note, Patient was recently in the hospital admitted for severe sepsis and UTI and acute encephalopathy from sepsis and was discharged on April 09 on ciprofloxacin and oxygen. He was again admitted same day with hypoxia iso pt's noncompliance w/ NC O2 use. He was discharged back on April 12, 2024 on nocturnal oxygen. As per caregiver patient used oxygen for couple of nights but after that he is not using oxygen as he sleeps on his belly. And staff is checking his oxygen status and as per caregiver he was saturating okay while sleeping. Patient has some redness in the left lower extremity which caregiver thinks more pronounced on presentation day. Has wound on the left lower extremity medial aspect above the ankle which the caregiver says because of his scratching the skin. Patient is wheelchair-bound but he can transfer to the wheelchair as per the caregiver. He is being managed for the following: Hypoglycemia HO T2DM on oral meds Came with dizziness and fall likely iso infection and hypoglycemia Admitting bl gl of 51. A1c 6.4 this admission Home DM meds are jardiance and glimepiride. Concern of slurred speech per childcare center director, likely 2/2 hypoglycemia and weakness from infection. CT Head is wnl. CTA neck w/ severe rt ICA stenosis. CTA Head ok. SSI while in hopsital DC glimepiride on dc, f/u A1c in 3 months. Follow closely with diabetic clinic on discharge. Left lower EXTR cellulitis Left lower extremity wound Wound care [facility] Rocephin sent blood culture 04/20. No growth for 24 hours, wait until 48 hours culture results are out. HESHAM on CKD: Baseline creatinine 1. Presents with creatinine of 1.59, Status post IVF. Resolved. Right ICA stenosis: Patient on aspirin. LDL 93. c/w statin. Follow-up with vascular as OP. Nocturnal hypoxemia: Patient not using oxygen nightly, noncompliant. Will monitor Chronic systolic and diastolic CHF EF 50 to 50% echo in 2022 Continue with home Lasix. Monitor for volume overload. Currently appears euvolemic. Hypertension: On Coreg and lisinopril. Will monitor Hypothyroidism: On Synthyroid GERD: On omeprazole History of depression Generalized anxiety disorder Compulsive disorder and mild intellectual disability On venlafaxine, divalproex, buspirone, bupropion, Abilify and doxepin And also Seroquel and risperidone Will monitor CAD: On aspirin and beta-kenyatta History of BPH: Monitor for urinary retention History of spina bifida DVT prophylaxis: Heparin subcu Disposition: Telemetry CODE STATUS DNR/DNI Patient's daughter Gladys was given a phone call 04/21 and given general update/plan of care. She voiced understanding. Admission and Anticipated Discharge Date Admission Date: April 19, 2024 Subjective Patient was seen and examined at bedside. Patient is oriented to self and place, denies pain, denies cough or sore throat or chest pain. Appears that he is back to his baseline mentation. Per RN no new acute event overnight, patient is eating okay, Moved bowel. Physical Exam Physical Exam: General- Not in acute distress Head- atraumatic Eyes- PERRL. ENT- oropharynx clear Neck- supple, no JVD. Lungs- clear to auscultation no wheezing or crackles Heart- regular rhythm; no murmur, no gallop. Abdomen- normal bowel sounds, soft, nontender, no distension Extremities- trace ble edema, left distal leg erythematous and wound seen medial aspect above ankle --> Erythema/warmth/tenderness has improved. Neuro- alert, oriented x 2; PERRL, no facial palsy; no dysarthria; moves extremities Results & Data Results & Data Vital Signs (Past 12 Hours) Vital Signs Temp Pulse Pulse Resp BP Pulse Ox O2 Del Method 04/21/24 13:55 66 04/21/24 11:40 36.7 C 83 18 154/69 H 97 Room Air 04/21/24 08:49 Room Air 04/21/24 07:45 36.5 C 74 20 148/71 H 96 Room Air 04/21/24 07:08 66
[2024-04-22 07:14] LABS: Hematocrit (blood only) 35.2 % (42.0-52.0); Hemoglobin 11.4 g/dl (14.0-18.0); Mean Corpuscular Hemoglobin 29.5 pg (25.0-34.0); Mean Corpuscular Hgb Conc 32.4 g/dL (32.0-36.0); Mean Platelet Volume 11.6 fL (9.4-12.4); Platelet Count 173 K/uL (130-400); RDW Coefficient of Variation 17.6 % (11.5-14.5); RDW Standard Deviation 59.1 fL (36.4-46.3); Red Blood Count 3.87 M/uL (4.70-6.10); White Blood Count 4.82 K/ul (4.8-10.8)
--- NOTE | 2024-04-22 13:59 | Discharge Summary ---
Date of Service April 22, 2024 Admission HPI Per Admitting Provider 68-year-old male comes from [facility] with past medical significant for dyslipidemia, type 2 diabetes, history of CAD, history of systolic and diastolic CHF EF 45% echo 2018 and EF 50 to 50% on echo done in 2022, history of spina bifida, history of mild intellectual disability, impulsive disorder, generalized disorder, depression, hypothyroidism, GERD, BPH, history of prior hepatitis B infection, CKD,presents with complaint of dizziness and slid down from the bed. Caregiver is in the room. As per caregiver since he was discharged on staff having sometimes difficult to understand the patient and they think he might have some slurred speech. As per caregiver for couple of days after discharge from hospital on 04/12/2024 he did not eat much but after that he was eating okay. But today he did not eat his lunch. He complained of dizziness. Then he slid down from the bed when the EMS was called and brought him here. Patient is currently alert and awake and oriented to name and place. He does not know the dates. He denies any headache. Denies chest pain. Denies shortness of breath. Denies nausea. Denies abdominal pain. No cough. No fevers. In the ER he was hypoglycemic. Patient seems comfortable. Patient was recently in the hospital on admitted for severe sepsis and UTI and acute encephalopathy from sepsis and was discharged on April 09 on cip rofloxacin and oxygen. He was again admitted same day with acute respiratory failure with hypoxia and was not using oxygen at long-term.. He was discharged back on April 12, 2024 on nocturnal oxygen. As per caregiver patient used oxygen for couple of nights but after that he is not using oxygen as he sleeps on his belly. And staff is checking his oxygen status and as per caregiver he was saturating okay while sleeping . Patient has some redness in the left lower extremity which caregiver thinks more pronounced today.Has wound on the left lower extremity medial aspect above the ankle which the caregiver says because of his scratching the skin. Patient is wheelchair-bound but he can transfer to the wheelchair as per the caregiver. Past medical history. As mentioned above Past surgical history. Bilateral alveloplasty. Colonoscopy. EGD. EGD with endoscopic ultrasound. Surgical extraction of ruptured tooth. Social history. No smoking. No alcoholism. No drug use. Family history. Mother had diabetes. Heart disorder. Father had heart disorder. Maternal grandfather had stroke. Maternal grandmother had stroke Admission Exam Per Admitting Provider General- Not in acute distress Head- atraumatic Eyes- PERRL. ENT- oropharynx clear Neck- supple, no JVD. Lungs- clear to auscultation no wheezing or crackles Heart- regular rhythm; no murmur, no gallop. Abdomen- normal bowel sounds, soft, nontender, no distension Extremities- b/l lower extremity edema present, left dital leg erythematous and wound seen medial aspect above ankle Neuro- alert, oriented x 2; PERRL, no facial palsy; no dysarthria; moves extremities Principal Diagnosis Hypoglycemia likely secondary to glimepiride Left lower extremity cellulitis HESHAM on CKD, resolved Right ICA stenosis Nocturnal hypoxemia Discharge Exam General- Not in acute distress Head- atraumatic Eyes- PERRL. ENT- oropharynx clear Neck- supple, no JVD. Lungs- clear to auscultation no wheezing or crackles Heart- regular rhythm; no murmur, no gallop. Abdomen- normal bowel sounds, soft, nontender, no distension Extremities- trace ble edema, left distal leg erythematous and wound seen medial aspect above ankle --> Erythema/warmth/tenderness has improved significantly. Neuro- alert, oriented x 2; PERRL, no facial palsy; no dysarthria; moves extremities Discharge Data Allergies Allergy/AdvReac Type Severity Reaction Status Date / Time terbinafine Allergy Mild RASH ON Verified 07/23/22 08:56 ARM? Consultations 04/19/24 19:52 ED Decision to Admit Stat Ordered Studies 04/19/24 18:21 CT head/brain wo con Stat CTA head w con [CT angio head w con] Stat CTA neck with con [CT angio neck with con] Stat Hospital Course (1) Hypoglycemia: 68 yo M from [facility] w/ PMH for dyslipidemia, type 2 diabetes, history of CAD, history of systolic and diastolic CHF EF 45% echo 2018 and EF 50 to 50% on echo done in 2022, history of spina bifida, history of mild intellectual disability, impulsive disorder, generalized disorder, depression, hypothyroidism, GERD, BPH, history of prior hepatitis B infection, CKD presents with complaint of dizziness and slid down from the bed. As per caregiver since he was discharged on staff having sometimes difficult to understand the patient and they think he might have some slurred speech. As per caregiver for couple of days after discharge from hospital on 04/12/2024 he did not eat much but after that he was eating okay. But on the day of presentation, he did not eat his lunch. He complained of dizziness. Then he slid down from the bed when the EMS was called and brought him here. In the ER he was hypoglycemic. Of note, Patient was recently in the hospital on admitted for severe sepsis and UTI and acute encephalopathy from sepsis and was discharged on April 09 on ciprofloxacin and oxygen. He was again admitted same day with hypoxia iso pt's noncompliance w/ NC O2 use. He was discharged back on April 12, 2024 on nocturnal oxygen. As per caregiver patient used oxygen for couple of nights but after that he is not using oxygen as he sleeps on his belly. And staff is checking his oxygen status and as per caregiver he was saturating okay while sleeping. Patient has some redness in the left lower extremity which caregiver thinks more pronounced on presentation day. Has wound on the left lower extremity medial aspect above the ankle which the caregiver says because of his scratching the skin. Patient is wheelchair-bound but he can transfer to the wheelchair as per the caregiver. He was managed for the following: Hypoglycemia HO T2DM on oral meds Came with dizziness and fall likely iso infection and hypoglycemia Admitting bl gl of 51. A1c 6.4 this admission Home DM meds are jardiance and glimepiride. Concern of slurred speech per customer care team coach, likely 2/2 hypoglycemia and weakness from infection. CT Head is wnl. CTA neck w/ severe rt ICA stenosis. CTA Head ok. SSI while in [facility] [place] glimepiride on dc, f/u A1c in 3 months. Follow closely with diabetic clinic on discharge. Left lower EXTR cellulitis Left lower extremity wound Wound care Empiric Rocephin sent blood culture 04/20. Discussed with microbiology lab, no growth as of 12:30 PM on 04/22. To p.o. antibiotic on discharge, probiotics added. Patient's lower extremity tenderness/erythema/warmth has significantly improved. HESHAM on CKD: Baseline creatinine 1. Presents with creatinine of 1.59, Status post IVF. Resolved. Right ICA stenosis: Patient on aspirin. LDL 93. c/w statin. Follow-up with vascular as OP. Nocturnal hypoxemia: Patient not using oxygen nightly, noncompliant. Will monitor Chronic systolic and diastolic CHF EF 50 to 50% echo in 2022 Continue with home Lasix. Monitor for volume overload. Currently appears euvolemic. Hypertension: On Coreg and lisinopril. Will monitor Hypothyroidism: On Synthyroid GERD: On omeprazole History of depression Generalized anxiety disorder Compulsive disorder and mild intellectual disability On venlafaxine, divalproex, buspirone, bupropion, Abilify and doxepin And also Seroquel and risperidone Will monitor CAD: On aspirin and beta-kenyatta History of BPH: Monitor for urinary retention History of spina bifida DVT prophylaxis: Heparin subcu Disposition: Telemetry CODE STATUS DNR/DNI Patient's sister Gladys was given a phone call 04/21 and given general update/plan of care. She voiced understanding. Following instructions were communicated to patient's caregiver Ángela over the phone. Patient is being discharged with following instructions at the point of discharge: Follow-up with your primary care physician within a week time and likely you will need labs CBC/CMP/magnesium/phosphorus. You will be discharged on antibiotic to complete the course for left lower extremity cellulitis. Probiotics will be added. You are noted to be hypoglycemic at presentation, your glimepiride has been discontinued at discharge, recommend that you closely follow-up with diabetic clinic or your PCP office for ongoing/long-term management of your diabetes. We encourage that you measure your fingerstick blood glucose level twice a day and maintain a log to take to your primary care physician for help with long-term monitoring. You will need repeat A1c in 3 months time, coordinate with your PCP office to set up the test. You are also noted to have right internal carotid artery stenosis, statin has been started this admission, we recommend that you follow-up with vascular surgery as an outpatient. Coordinate with your PCP office to set up the referral. As you have been noted to have nocturnal hypoxemia during your previous admission, we recommend that you put on nasal cannula oxygen during sleep. We also recommend that you will benefit from outpatient sleep study, coordinate with your PCP office to set up the test. Take your medications as prescribed. Please make sure that you are able to get your medications today by calling your pharmacy before you leave the hospital so that your treatment continuity is not broken. Home Health Attestation I certify that this patient is under my care and that I, or a physicians glass ribbon machine operator assistant working with me, had a face to-face encounter that meets the home health [id number] encounter requirements with this patient. The encounter with the patient was in whole, or in part, for the following medical condition, which is the primary reason for home health care (list medical condition): I certify that, based on my findings, the following services are medically necessary home health services: My clinical findings support the need for the above services because: Further, I certify that my clinical findings support that this patient is homebound (i.e. absences from home require considerable and taxing effort and are for medical reasons or oriental orthodox services or infrequently or of short duration when for other reasons) because: Certification for Home Health Services: Based on the above findings, I certify that this patient is confined to the home and needs intermittent long term care, physical therapy and/or speech therapy or continues to need occupational therapy. The patient is under my care, and I have initiated the establishment of the plan of care. This patient will be followed by a physician who will periodically review the plan of care. Total Time Total Time Spent Total Time Spent (In Minutes): 35 Discharge Plan Discharge Items Patient Disposition: Home - Home Health Services Reason For Visit: DIZZINESS, HYPOGLYCEMIA, CELLULITIS Discharge Diagnosis: Hypoglycemia likely secondary to glimepiride Left lower extremity cellulitis HESHAM on CKD, resolved Right ICA stenosis Nocturnal hypoxemia Activity: Resume your previous activity Non-emergency contact: Primary Care Provider Call non-emergency contact if: you have any medication questions Follow-up/Referrals: Tim Swenson DO [Primary Care Provider] - (Date & Time 04/26/2024 2:00 PM Provider: Tim Swenson DO Department: [facility] ) Diet: Carb Count or DM1 and Heart Healthy Addtl Attending Provider Instructions: Follow-up with your primary care physician within a week time and likely you will need labs CBC/CMP/magnesium/phosphorus. You will be discharged on antibiotic to complete the course for left lower extremity cellulitis. Probiotics will be added. You are noted to be hypoglycemic at presentation, your glimepiride has been discontinued at discharge, recommend that you closely follow-up with diabetic clinic or your PCP office for ongoing/long-term management of your diabetes. We encourage that you measure your fingerstick blood glucose level twice a day and maintain a log to take to your primary care physician for help with long-term monitoring. You will need repeat A1c in 3 months time, coordinate with your PCP office to set up the test. You are also noted to have right internal carotid artery stenosis, statin has been started this admission, we recommend that you follow-up with vascular surgery as an outpatient. Coordinate with your PCP office to set up the referral. As you have been noted to have nocturnal hypoxemia during your previous admission, we recommend that you put on nasal cannula oxygen during sleep. We also recommend that you will benefit from outpatient sleep study, coordinate with your PCP office to set up the test. Take your medications as prescribed. Please make sure that you are able to get your medications today by calling your pharmacy before you leave the hospital so that your treatment continuity is not broken. Pending Studies at Discharge: Yes Stand-Alone Forms: My [facility] [employer] Mobile Interaction, Smoking Cessation Medications and DC Order Prescriptions: New atorvastatin 20 mg Tablet 20 mg PO QAM Qty: 30 0RF cephalexin 500 mg capsule 500 mg PO TID 4 Days Qty: 12 0RF Probiotic 3 billion cell capsule 3,000 mmu cells PO DAILY 7 Days Qty: 7 0RF Rx Instructions: administer with a meal Continued aspirin 81 mg Tablet,Chewable 81 mg PO .DAILY @0800 Rx Instructions: 8 am sennosides [senna] 8.6 mg Tablet 8.6 mg PO .BID @ 0800 & 2000 (DME) lancets [Lancets,Thin] Misc See Rx Instructions .ROUTE .MEDSUPPLY Qty: 50 2RF Rx Instructions: As directed bupropion HCl 300 mg tablet extended release 24 hr 300 mg PO .DAILY @0800 buspirone 15 mg Tablet 15 mg PO .BID @ 0800,1800 Rx Instructions: 8am and 8 pm aripiprazole [Abilify] 15 mg Tablet 15 mg PO .DAILY @ 0800 Rx Instructions: 8 am quetiapine [Seroquel] 50 mg Tablet 50 mg PO .TID 0800,1400,1800 Rx Instructions: 8am,2pm,8pm doxepin 10 mg Capsule 10 mg PO .DAILY @ 2000 omeprazole 40 mg Capsule,Delayed Release(Dr/Ec) 40 mg PO .DAILY@0700 Rx Instructions: 7am multivitamin [Daily-Ezekiel] Tablet 1 tab PO .DAILY @ 0800 venlafaxine 37.5 mg capsule,extended release 24hr 37.5 mg PO .DAILY@0800 venlafaxine 75 mg capsule,extended release 24hr 75 mg PO .DAILY@0800 risperidone 0.25 mg tablet 0.25 mg PO .DAILY@0800 divalproex 500 mg tablet extended release 24 hr 1,500 mg PO HS furosemide 40 mg tablet 40 mg PO .DAILY @0800 carvedilol 25 mg tablet 25 mg PO .BID @ 0800,1800 levothyroxine 100 mcg tablet 100 mcg PO .DAILY@0700 Jardiance 25 mg tablet 25 mg PO .DAILY@0800 lisinopril 10 mg Tablet 30 mg PO .DAILY@0800 Qty: 90 0RF sucralfate 1 gram Tablet 1 g PO .DAILY@0800 Discontinued glimepiride 2 mg tablet 2 mg PO .DAILY@0800 Discharge Orders: Discharge Order (Routine); Ordered 04/22/24 Ordered By: Ben Wright Admission Data Admit Date/Time: 04/19/24 22:50 Attending Provider: Ben Wright Admit Provider: Tha Hernandez Primary Care Provider: Tim Swenson Other Providers: Tha Hernandez
[2024-04-22 15:37] VITALS: PULSE 62; RESP 20; TEMP 97.3; O2SAT 96
[2024-04-22 16:25] VITALS: BP 137/80
--- NOTE | 2024-04-25 09:48 | Coding Query ---
CODING QUERY To promote full compliance with coding requirements relating to patient care, provider participation is requested in all cases of robot technician uncertainty. Please assist us with the question(s) below: Please clarify the meaning of HESHAM. HESHAM is not a valid abbreviation. Thank you. ( x ) Acute Kidney Injury ( ) Acute Kidney Insufficiency ( ) Other (Specify): Principal Diagnosis: "that condition established after study, to be chiefly responsible for occasioning the admission of the patient to the hospital for care." Co-Existing Principal Diagnosis: "when two or more diagnoses equally meet the criteria for principal diagnosis as determined by the circumstances of admission, diagnostic work up, and/or therapy provided, and the Alphabetic Index, Tabular List, or another coding guideline does not provide sequencing direction, any one of the diagnoses may be sequenced first." "When the physician has documented what appears to be a current diagnosis in the body of the record, but has not included the diagnosis in the final diagnostic statement, the physician should be asked whether the diagnosis should be added." (Source Coding [facility] 2 QTR90. p3-4) SENTHIL
== END 2024-04-22 18:00 | disposition home or self-care (01) | DRG 637 ==
LOC: ED 15:49 → 2S 22:50

== ENCOUNTER 2024-05-13 14:13 | Inpatient (IN) ==
[2024-05-13] MEDS: SODIUM CHLORIDE 0.9% 1,000 ML IV ONE ×2 (14:47→17:00)
--- NOTE | 2024-05-13 14:47 | Emergency Department Note ---
Impression & Plan Nausea, vomiting, and diarrhea, HESHAM (acute kidney injury), Acute dehydration, Enteritis due to Norovirus ED Provider Note HISTORY OF PRESENT ILLNESS: Patient is a 68-year-old male presenting with vomiting, diarrhea and lethargy. Staff from [facility] provides history. Reports that for the last 24 hours the patient has been more lethargic and sleepy than normal. They state that he had a few episodes of vomiting yesterday has had multiple episodes of diarrhea throughout the day today. They state that his blood pressure has been in the low 90s multiple times throughout the day today which is abnormal for him. They state that "we are unable to get a glucose reading because it keeps saying error." They report he is not eating or drinking anything and they had called their overseeing physician referred to the emergency department for further evaluation. No reported fevers. The patient is complaining of diffuse abdominal pain. ROS: as above PHYSICAL EXAM: Constitutional: Patient appears in no acute distress. HENT: Head: Normocephalic and atraumatic. Eyes: EOMI, PERRL Mouth/Throat: Mucous membranes moist. Neck: Trachea midline. Neck supple. Cardiovascular: RRR, No murmurs, rubs or gallops. Intact distal pulses. Pulmonary/Chest: No respiratory distress. Breath sounds clear and equal bilaterally. No wheezes or rales. Abdominal: Abdomen soft, no tenderness, rebound or guarding. Musculoskeletal: No edema, tenderness or deformity noted. Skin: Warm and dry. No rash, erythema, pallor or cyanosis Psychiatric: Appropriate mood and affect for situation. Neurological: Alert and keenly responsive. CN II-XII grossly intact, moving all extremities equally and fully. MDM: - Vitals signs showed hypotension - History obtained via patient's facility staff, given his intellectual disability. History as above. - Chronic conditions affecting care: cerebral palsy; DM-2; hypothyroidism; HTN; HLD - Differential diagnoses include, but are not limited to: dehydration; viral illness; electrolyte abnormality; bowel obstruction; colitis; diverticulitis - Order placed for continuous cardiac monitoring. At this time, monitor showed rate of 76 bpm with normal sinus rhythm, per my interpretation. - External medical records reviewed. Discharge summary dated 04/22/2024 was reviewed. Patient was admitted for recurrent hypoglycemia and left lower extremity cellulitis. - EKG interpreted by myself showed normal sinus rhythm. Rate 75 bpm. QT 406. No acute ischemic changes. - Laboratory workup interpreted by myself showed normal WBC; slight hyponatremia (Na 131); HESHAM (Cr 2.33 - baseline around 1.0 - 1.1); hypocalcemia (Ca 8.1); normal troponin; normal lactate - Viral respiratory panel negative - CT abdomen/pelvis wo contrast (due to patient's HESHAM) showed no acute pathology. Noted to have some mild fluid throughout the large bowel compatible with a diarrheal illness. - Patient given 2L NS and 4 mg IV zofran in ER. - Stool study positive for norovirus infection. - Patient's staff reports that patient is still lethargic and does not appear back to his baseline. May be secondary to dehydration. Will admit to hospitalist service. - Discussion was had with caser in about patient's case and need for admission - Hospitalist, Dr. Hernandez, consulted for admission - Patient admitted to [facility] hospitalist service for further evaluation and management. ASSESSMENT AND PLAN: Diagnosis: nausea, vomiting and diarrhea; HESHAM; acute dehydration; enteritis due to norovirus Plan: admit Past Med/Surg History Problem List (Updated 05/13/24 @ 19:47 by Lorri Crandall MD) Enteritis due to Norovirus (Acute) Acute dehydration (Acute) HESHAM (acute kidney injury) (Acute) Nausea, vomiting, and diarrhea (Acute) Internal carotid artery stenosis (Acute) Slurred speech (Acute) Hypoglycemia (Acute) Nocturnal hypoxemia Acute dyspnea (Acute) Severe sepsis Acute hyponatremia (Acute) Elevated lactic acid level (Acute) Leukocytosis (Acute) Dehydration (Acute) HESHAM (acute kidney injury) (Acute) Hypotension (Acute) Elevated troponin (Acute) Sepsis (Acute) Back pain Closed L2 vertebral fracture (Acute) Pulmonary edema (Acute) Pneumonitis (Acute) Lactic acidemia (Acute) Contrast dye induced nephropathy Acute renal insufficiency Elevated troponin Chronic heart failure with reduced ejection fraction and diastolic dysfunction Elevated troponin I level Acute respiratory failure with hypoxia Influenza A (Acute) Low oxygen saturation Respiratory distress Hypertension (Acute) Intellectual disability (Acute) Acute kidney failure Aspiration into airway (Acute) Airway clearance impairment (Acute) Encounter for pre-operative examination Congestive heart failure (CHF) Acute respiratory failure with hypoxia Aspiration pneumonia DVT prophylaxis Discharge planning issues Psychiatric disorder Intermittent explosive disorder Anxiety disorder, unspecified Depression Oral candidiasis Weakness (Acute) DVT prophylaxis CHF (congestive heart failure) Sepsis (Acute) Severe sepsis Abdominal pain Cholelithiasis Encounter for pre-operative examination History of laparoscopic cholecystectomy Laparoscopic cholecystectomy [address] Wolff Vocal cord paralysis, unilateral complete H/O tooth extraction Coronary artery disease (Chronic) GERD (gastroesophageal reflux disease) (Chronic) Medical History Thrombocytopenia Chronic thrombocytopenia, baseline platelets low 100s per chart review Obesity Cerebral palsy Moderate intellectual disabilities sister/POA -ASHLEY IRENE [phone] 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 SIGNS CONSENTS Anemia MRSA (methicillin resistant Staphylococcus aureus) carrier Dysphagia Keratoconus Cataract Arthritis Spina bifida Hypothyroidism Diabetes mellitus, type 2 Chronic ischemic heart disease Hyperlipidemia Hypertension Intermittent explosive disorder Impulse control disorder Severe anxiety Combative behavior Fall Fall risk Surgical History History of esophagogastroduodenoscopy (EGD) History of colonoscopy EGD/colonoscopy (12/07/19): MAC sedation at [facility] History of bronchoscopy Flexible bronchoscopy with BAL (02/04/18): Grade view 1, Elective glidescope #4, ETT 8.5 at [facility] (done for aspiration PNA) Family History Other No significant family history Social History Smoking Status: Never smoker Second Hand Exposure: No; Do You Dip or Chew Tobacco: No; Hx Alcohol Use: No Hx Substance Use: No Preferred Language: Tajik Communication Ability: Effective Communication Ability Comment: PT IS INTELLECTUALLY IMPAIRED [employer] P[employer] Supervisor Required: No Beliefs That Will Affect Care: None marital status: Single Current Living Situation: Other Current Living Situation Comment: [facility] Pope current occupational status: disabled Feels Safe at Home: Yes Assistive Devices: Wheelchair Allergies Allergies Allergy/AdvReac Type Severity Reaction Status Date / Time terbinafine Allergy Mild RASH ON Verified 07/23/22 08:56 ARM? Home Meds Home Medications Medication Instructions Recorded Confirmed sennosides 8.6 mg tablet (senna) 8.6 mg PO .BID @ 0800 & 2000 09/21/18 04/19/24 bupropion HCl 300 mg 24 hr tablet, 300 mg PO .DAILY @79905/05/20 04/19/24 extended release aspirin 81 mg chewable tablet 81 mg PO .DAILY @79906/09/20 04/19/24 aripiprazole 15 mg tablet (Abilify) 15 mg PO .DAILY @ 79907/31/20 04/19/24 buspirone 15 mg tablet 15 mg PO .BID @ 0800,1800 07/31/20 04/19/24 quetiapine 50 mg tablet (Seroquel) 50 mg PO .TID 0800,1400,1800 07/31/20 04/19/24 doxepin 10 mg capsule 10 mg PO .DAILY @ 199902/07/21 04/19/24 omeprazole 40 mg capsule,delayed 40 mg PO .DAILY@69905/21/21 04/19/24 release divalproex 500 mg tablet,extended 1,500 mg PO HS 04/11/22 04/19/24 release 24 hr multivitamin (Daily-Ezekiel tablet) 1 tab PO .DAILY @ 79904/11/22 04/19/24 risperidone 0.25 mg tablet 0.25 mg PO .DAILY@79904/11/22 04/19/24 venlafaxine 37.5 mg 37.5 mg PO .DAILY@79904/11/22 04/19/24 capsule,extended release 24 hr venlafaxine 75 mg capsule,extended 75 mg PO .DAILY@79904/11/22 04/19/24 release 24 hr furosemide 40 mg tablet 40 mg PO .DAILY @79907/16/22 04/19/24 carvedilol 25 mg tablet 25 mg PO .BID @ 08,1800 12/15/22 04/19/24 empagliflozin 25 mg tablet 25 mg PO .DAILY@79912/15/22 04/19/24 (Jardiance) levothyroxine 100 mcg tablet 100 mcg PO .DAILY@69912/15/22 04/19/24 sucralfate 1 gram tablet 1 g PO .DAILY@79911/27/23 04/19/24 Previous Rx's Medication Instructions Recorded lancets (Lancets,Thin) #50 ea 11/07/19 lisinopril 10 mg tablet 30 mg (3 x 10 mg) PO .DAILY@79904/12/24 #90 tabs atorvastatin 20 mg tablet 20 mg PO QAM #30 tabs 04/22/24 Results & Data (ED) Vital Signs Vital Signs - 24 hr 05/13/24 14:17 05/13/24 14:28 05/13/24 15:10 Temperature 37.1 C Temperature Source Oral Pulse Rate 78 76 Pulse Rate [Apical] Pulse Rate from SpO2 Sensor Respiratory Rate 19 Respiratory Effort / Characteristics Non-Labored Spontaneous Respiratory Depth Normal Blood Pressure 95/52 L Blood Pressure [Right Arm] Blood Pressure Mean 66 Blood Pressure Mean [Right Arm] Pulse Oximetry 92 Oxygen Delivery Method Room Air Sepsis Recent Fever Within 48 Hours No Sepsis New/Unexplained Change in Mental Status No Sepsis Action Taken by Nursing No Action Required 05/13/24 15:21 05/13/24 15:39 05/13/24 16:12 Temperature Temperature Source Pulse Rate 71 73 Pulse Rate [Apical] 71 Pulse Rate from SpO2 Sensor Respiratory Rate 21 15 15 Respiratory Effort / Characteristics Respiratory Depth Blood Pressure 102/53 L 116/58 L Blood Pressure [Right Arm] 102/53 L Blood Pressure Mean 69 77 Blood Pressure Mean [Right Arm] 69 Pulse Oximetry 92 Oxygen Delivery Method Room Air Sepsis Recent Fever Within 48 Hours Sepsis New/Unexplained Change in Mental Status Sepsis Action Taken by Nursing 05/13/24 16:30 05/13/24 17:00 05/13/24 18:59 Temperature Temperature Source Pulse Rate 69 72 77 Pulse Rate [Apical] Pulse Rate from SpO2 Sensor 69 77 Respiratory Rate 18 17 23 Respiratory Effort / Characteristics Respiratory Depth Blood Pressure 105/58 L 130/70 120/82 Blood Pressure [Right Arm] Blood Pressure Mean 73 85 94 Blood Pressure Mean [Right Arm] Pulse Oximetry 95 95 Oxygen Delivery Method Sepsis Recent Fever Within 48 Hours Sepsis New/Unexplained Change in Mental Status Sepsis Action Taken by Nursing 05/13/24 19:00 Temperature Temperature Source Pulse Rate 76 Pulse Rate [Apical] Pulse Rate from SpO2 Sensor 77 Respiratory Rate 20 Respiratory Effort / Characteristics Respiratory Depth Blood Pressure Blood Pressure [Right Arm] Blood Pressure Mean Blood Pressure Mean [Right Arm] Pulse Oximetry 95 Oxygen Delivery Method Sepsis Recent Fever Within 48 Hours Sepsis New/Unexplained Change in Mental Status Sepsis Action Taken by Nursing Laboratory Data 05/13/24 14:50 05/13/24 14:50 Lab Results 01/31/25 01/31/25 01/31/25 Range/Units 14:50 15:29 Unknown WBC 6.69 (4.8-10.8) K/ul RBC 4.17 L (4.70-6.10) M/uL Hgb 11.9 L (14.0-18.0) g/dl Hct 37.6 L (42.0-52.0) % MCV 90.2 (80.0-100.0) fL MCH 28.5 (25.0-34.0) pg MCHC 31.6 L (32.0-36.0) g/dL RDW Std Deviation 56.4 H (36.4-46.3) fL RDW Coeff of Josiah 17.2 H (11.5-14.5) % Plt Count 122 L (130-400) K/uL MPV 11.4 (9.4-12.4) fL Immature Gran % (Auto) 1.5 % Neut % (Auto) 63.4 % Lymph % (Auto) 22.6 % Rooks % (Auto) 12.1 % Eos % (Auto) 0.1 % Baso % (Auto) 0.3 % Neut # (Auto) 4.24 (1.40-6.50) K/uL Lymph # (Auto) 1.51 (1.20-3.40) K/uL Rooks # (Auto) 0.81 H (0.11-0.59) K/uL Eos # (Auto) 0.01 (0.00-0.50) K/uL Baso # (Auto) 0.02 (0.00-0.20) K/uL Immature Gran # (Auto) 0.10 (0.01-0.20) K/uL PT 11.3 (9.0-12.0) Seconds INR 1.0 (0.9-1.1) Sodium 131 L (136-145) mmol/L Potassium 3.8 (3.5-5.1) mmol/L Chloride 102 (98-107) mmol/L Carbon Dioxide 21 (21-32) mmol/L Anion Gap 8 (3-11) BUN 40 H (6-23) mg/dl Creatinine 2.33 H (0.6-1.4) mg/dl Est Cr Clr Drug Dosing 37.7 ml/min eGFR 30.08 BUN/Creatinine Ratio 17.2 (10-20) Glucose 105 H (70-99(Fasting)) mg/dl Lactate 1.7 (0.4-2.0) mmol/L Calcium 8.1 L (8.6-10.3) mg/dl Total Bilirubin 0.4 (0.2-1.0) mg/dl AST 34 (13-39) U/L ALT 24 (7-52) U/L Alkaline Phosphatase 56 (34-104) U/L Troponin I High Sens 8.7 (0-20) pg/ml Total Protein 8.1 (6.0-8.3) gm/dl Albumin 3.6 (3.4-5.0) gm/dl Globulin 4.5 H (2.5-4.0) gm/dl Albumin/Globulin Ratio 0.8 L (0.9-2) Lipase 35 (11-82) U/L Stl C. cayetanensis PCR Not Detected (NotDetected) Stool Rotavirus A PCR Not Detected (NotDetected) Stl Adenov F 40/41 PCR Not Detected (NotDetected) Stool Astrovirus (PCR) Not Detected (NotDetected) Stool Campylobacter PCR Not Detected (NotDetected) Stl C. diff Tox B Gene Negative Cdiff Gene (Neg) Stool Cryptosporidium PCR Not Detected (NotDetected) Stl E.coli Shiga Tox PCR Not Detected (NotDetected) Stl Enterotoxigenic E PCR Not Detected (NotDetected) Stool EPEC (PCR) Not Detected (NotDetected) Stool EAEC (PCR) Not Detected (NotDetected) Stl E. histolytica PCR Not Detected (NotDetected) Stool Giardia Lamblia PCR Not Detected (NotDetected) Stool Salmonella PCR Not Detected (NotDetected) Stool Sapovirus (PCR) Not Detected (NotDetected) Stl P. shigelloides PCR Not Detected (NotDetected) Stl Shigella/EIEC PCR Not Detected (NotDetected) St Y.enterocolitica PCR Not Detected (NotDetected) Stool Vibrio (PCR) Not Detected (NotDetected) Stl Vibrio cholerae PCR Not Detected (NotDetected) Stl Norovirus GI/GII PCR DETECTED A* (NotDetected) Adenovirus (PCR) Not Detected (NotDetected) B. pertussis DNA (PCR) Not Detected (NotDetected) B.parapertussis DNA PCR Not Detected (NotDetected) C. pneumoniae DNA (PCR) Not Detected (NotDetected) Coronavirus OC43 (PCR) Not Detected (NotDetected) Coronavirus HKU1 (PCR) Not Detected (NotDetected) Coronavirus 229E (PCR) Not Detected (NotDetected) SARS-CoV-2 (PCR) Not Detected (NotDetected) Coronavirus NL63 (PCR) Not Detected (NotDetected) Human Metapneumovir PCR Not Detected (NotDetected) Influenza Type A (PCR) Not Detected (NotDetected) Influenza Type B (PCR) Not Detected (NotDetected) M. pneumoniae (PCR) Not Detected (NotDetected) Parainfluenza 1 (PCR) Not Detected (NotDetected) Parainfluenza 2 (PCR) Not Detected (NotDetected) Parainfluenza 3 (PCR) Not Detected (NotDetected) Parainfluenza 4 (PCR) Not Detected (NotDetected) RSV (PCR) Not Detected (NotDetected) Entero/Rhino (PCR) Not Detected (NotDetected) Administered Medications Discontinued Medications Sodium Chloride (Nss) 1,000 mls @ 999 mls/hr IV .Q1H1M ONE Stop: 05/13/24 15:45 Last Infusion: 05/13/24 17:41 Dose: Infused Documented By: Admin: 05/13/24 14:47 Dose: 999 mls/hr Documented By: Sodium Chloride (Nss) 1,000 mls @ 999 mls/hr IV .Q1H1M ONE Stop: 05/13/24 16:28 Last Infusion: 05/13/24 19:19 Dose: Infused Documented By: Mercy Admin: 05/13/24 17:00 Dose: 999 mls/hr Documented By: HECTOR Ondansetron HCl (Ondansetron Inj 2 Mg/Ml 2 Ml Vial) 4 mg IV NOW STA Stop: 05/13/24 14:46 Last Admin: 05/13/24 15:00 Dose: 4 mg Documented By: Imaging Data Radiologist's Impression: Abdomen/Pelvis CT 05/13/24 17:21 EXAMINATION: CT of the abdomen and pelvis performed without contrast TECHNIQUE: Helical CT images from the lung bases through the symphysis pubis were obtained without contrast. Coronal and sagittal reformatted images were generated at a workstation for further assessment. Dose reduction techniques were achieved by using automatic exposure control and/or adjustment of mA and/or kV according to patient size and/or use of iterative reconstruction technique. COMPARISON: 04/05/2024 HISTORY: Abdominal pain. Diarrhea FINDINGS: Lower chest: No consolidation. No pleural effusion or pneumothorax. Calcification is seen in the wall of the ventricular septum and to the apical septal wall, suggesting prior myocardial infarct. Liver: No suspicious liver lesions. Hepatic steatosis. The liver is again enlarged. Gallbladder: Cholecystectomy changes. Spleen: Normal size. Pancreas: No suspicious pancreatic lesions. The pancreatic duct is not dilated. Adrenal glands: No adrenal nodules. Kidneys: No hydronephrosis or obstructing renal stones. Bladder / Pelvic organs: Unremarkable. Bowel: No bowel obstruction. No abnormal bowel wall thickening. The appendix is unremarkable. There is mild fluid throughout the large bowel, compatible with a diarrheal illness. Lymph nodes: No retroperitoneal, mesenteric, or pelvic lymphadenopathy. Peritoneum / Retroperitoneum: No free fluid or air within the abdomen. Vessels: No infrarenal aortic aneurysm. Heavy aortoiliac calcification. Bones and soft tissues: No suspicious lesion in the bones. Degenerative changes of the lumbar spine. IMPRESSION: Mild fluid throughout the large bowel, compatible with a diarrheal illness. No other acute findings. Hepatic steatosis/hepatomegaly again seen. Electronically signed by Herbert Bermudez 05-13-2024 6:49 PM Discharge Plan Visit Data Chief Complaint: Illness ED Provider: Lorri Crandall Discharge Problem: Nausea, vomiting, and diarrhea, HESHAM (acute kidney injury), Acute dehydration, Enteritis due to Norovirus Forms Stand Alone Forms: My [facility] Impulsiv Prescriptions Prescriptions: No Action aspirin 81 mg Tablet,Chewable 81 mg PO .DAILY @0800 Rx Instructions: 8 am sennosides [senna] 8.6 mg Tablet 8.6 mg PO .BID @ 0800 & 2000 (DME) lancets [Lancets,Thin] Misc See Rx Instructions .ROUTE .MEDSUPPLY Qty: 50 2RF Rx Instructions: As directed bupropion HCl 300 mg tablet extended release 24 hr 300 mg PO .DAILY @0800 buspirone 15 mg Tablet 15 mg PO .BID @ 0800,1800 Rx Instructions: 8am and 8 pm aripiprazole [Abilify] 15 mg Tablet 15 mg PO .DAILY @ 0800 Rx Instructions: 8 am quetiapine [Seroquel] 50 mg Tablet 50 mg PO .TID 0800,1400,1800 Rx Instructions: 8am,2pm,8pm doxepin 10 mg Capsule 10 mg PO .DAILY @ 2000 omeprazole 40 mg Capsule,Delayed Release(Dr/Ec) 40 mg PO .DAILY@0700 Rx Instructions: 7am multivitamin [Daily-Ezekiel] Tablet 1 tab PO .DAILY @ 0800 venlafaxine 37.5 mg capsule,extended release 24hr 37.5 mg PO .DAILY@0800 venlafaxine 75 mg capsule,extended release 24hr 75 mg PO .DAILY@0800 risperidone 0.25 mg tablet 0.25 mg PO .DAILY@0800 divalproex 500 mg tablet extended release 24 hr 1,500 mg PO HS furosemide 40 mg tablet 40 mg PO .DAILY @0800 carvedilol 25 mg tablet 25 mg PO .BID @ 0800,1800 levothyroxine 100 mcg tablet 100 mcg PO .DAILY@0700 Jardiance 25 mg tablet 25 mg PO .DAILY@0800 lisinopril 10 mg Tablet 30 mg PO .DAILY@0800 Qty: 90 0RF sucralfate 1 gram Tablet 1 g PO .DAILY@0800 atorvastatin 20 mg Tablet 20 mg PO QAM Qty: 30 0RF Referrals Referrals: Tim Swenson DO [Primary Care Provider] -
[2024-05-13] MEDS: ONDANSETRON INJ 2 MG/ML 2 ML VIAL IV STA (15:00)
[2024-05-13 15:17] LABS: Basophils # (auto) 0.02 K/uL (0.00-0.20); Basophils % (auto) 0.3 %; Eosinophils # (auto) 0.01 K/uL (0.00-0.50); Eosinophils % (auto) 0.1 %; Hematocrit (blood only) 37.6 % (42.0-52.0); Hemoglobin 11.9 g/dl (14.0-18.0); Immature Granulocytes % (auto) 1.5 %; Lymphocytes # (auto) 1.51 K/uL (1.20-3.40); Lymphocytes % (auto) 22.6 %; Mean Corpuscular Hemoglobin 28.5 pg (25.0-34.0); Mean Corpuscular Hgb Conc 31.6 g/dL (32.0-36.0); Mean Corpuscular Volume 90.2 fL (80.0-100.0); Mean Platelet Volume 11.4 fL (9.4-12.4); Monocytes # (auto) 0.81 K/uL (0.11-0.59); Monocytes % (auto) 12.1 %; Neutrophils # (auto) 4.24 K/uL (1.40-6.50); Neutrophils % (auto) 63.4 %; Platelet Count 122 K/uL (130-400); RDW Coefficient of Variation 17.2 % (11.5-14.5); RDW Standard Deviation 56.4 fL (36.4-46.3); Red Blood Count 4.17 M/uL (4.70-6.10); White Blood Count 6.69 K/ul (4.8-10.8)
[2024-05-13 15:25] LABS: Albumin Globulin Ratio 0.8 (0.9-2); Albumin Level 3.6 gm/dl (3.4-5.0); BUN Creatinine Ratio 17.2 (10-20); Bilirubin,Total 0.4 mg/dl (0.2-1.0); Calcium 8.1 mg/dl (8.6-10.3); Creatinine Clr Calc Pharmacy 37.7 ml/min; Globulin 4.5 gm/dl (2.5-4.0); Potassium 3.8 mmol/L (3.5-5.1); Total Protein 8.1 gm/dl (6.0-8.3)
[2024-05-13 15:32] LABS: Troponin I High Sensitivity 8.7 pg/ml (0-20)
[2024-05-13 15:38] LABS: Prothrombin Time 11.3 Seconds (9.0-12.0)
[2024-05-13 15:53] LABS: Adenovirus PCR Not Detected (NotDetected); Bordetella parapertussis PCR Not Detected (NotDetected); Bordetella pertussis PCR Not Detected (NotDetected); Chlamydia pneumoniae PCR Not Detected (NotDetected); Coronavirus 229E PCR Not Detected (NotDetected); Coronavirus CoV-2 (COVID19)PCR Not Detected (NotDetected); Coronavirus HKU1 PCR Not Detected (NotDetected); Coronavirus NL63 PCR Not Detected (NotDetected); Coronavirus OC43PCR Not Detected (NotDetected); Human Metapneumovirus PCR Not Detected (NotDetected); Influenza A PCR Not Detected (NotDetected); Influenza B PCR Not Detected (NotDetected); Mycoplasma pneumoniae PCR Not Detected (NotDetected); Parainfluenza Virus 1 PCR Not Detected (NotDetected); Parainfluenza Virus 2 PCR Not Detected (NotDetected); Parainfluenza Virus 3 PCR Not Detected (NotDetected); Parainfluenza Virus 4 PCR Not Detected (NotDetected); Respiratory Syncytial VirusPCR Not Detected (NotDetected); Rhinovirus/Enterovirus PCR Not Detected (NotDetected)
--- NOTE | 2024-05-13 16:39 | Electrocardiogram Report ---
Test Reason : Blood Pressure : */* mmHG Vent. Rate : 75 BPM Atrial Rate : 75 BPM P-R Int : 176 ms QRS Dur : 86 ms QT Int : 406 ms P-R-T Axes : 56 0 59 degrees QTcB Int : 453 ms Normal sinus rhythm Low voltage QRS Inferior infarct (cited on or before 12-Apr-2022) Anterolateral infarct (cited on or before 10-Jun-2010) Abnormal ECG When compared with ECG of 19-Apr-2024 15:59, No significant change was found Confirmed by Junaid Alan ([id number]) on 05/13/2024 4:39:47 PM Referred By: Confirmed By: Junaid Alan
[2024-05-13 18:32] LABS: Adenovirus F 40/41 PCR Not Detected (NotDetected); Astrovirus PCR Not Detected (NotDetected); Campylobacter PCR Not Detected (NotDetected); Cryptosporidium PCR Not Detected (NotDetected); Cyclospora cayetanensis PCR Not Detected (NotDetected); Entamoeba histolytica PCR Not Detected (NotDetected); Enteroaggregative E.coli(EAEC) Not Detected (NotDetected); Enteropathogenic E.coli (EPEC) Not Detected (NotDetected); Enterotoxigenic E.coli (ETEC) Not Detected (NotDetected); Giardia lamblia PCR Not Detected (NotDetected); Plesiomonas shigelloides PCR Not Detected (NotDetected); Rotavirus A PCR Not Detected (NotDetected); Salmonella PCR Not Detected (NotDetected); Sapovirus PCR Not Detected (NotDetected); Shiga-like Toxin E.coli (STEC) Not Detected (NotDetected); Shigella/Enteroinvasive E.coli Not Detected (NotDetected); Vibrio cholerae PCR Not Detected (NotDetected); Vibrio species PCR Not Detected (NotDetected); Yersinia enterocolitica PCR Not Detected (NotDetected)
--- NOTE | 2024-05-13 18:50 | CT Scan Report ---
EXAMINATION: CT of the abdomen and pelvis performed without contrast TECHNIQUE: Helical CT images from the lung bases through the symphysis pubis were obtained without contrast. Coronal and sagittal reformatted images were generated at a workstation for further assessment. Dose reduction techniques were achieved by using automatic exposure control and/or adjustment of mA and/or kV according to patient size and/or use of iterative reconstruction technique. COMPARISON: 04/05/2024 HISTORY: Abdominal pain. Diarrhea FINDINGS: Lower chest: No consolidation. No pleural effusion or pneumothorax. Calcification is seen in the wall of the ventricular septum and to the apical septal wall, suggesting prior myocardial infarct. Liver: No suspicious liver lesions. Hepatic steatosis. The liver is again enlarged. Gallbladder: Cholecystectomy changes. Spleen: Normal size. Pancreas: No suspicious pancreatic lesions. The pancreatic duct is not dilated. Adrenal glands: No adrenal nodules. Kidneys: No hydronephrosis or obstructing renal stones. Bladder / Pelvic organs: Unremarkable. Bowel: No bowel obstruction. No abnormal bowel wall thickening. The appendix is unremarkable. There is mild fluid throughout the large bowel, compatible with a diarrheal illness. Lymph nodes: No retroperitoneal, mesenteric, or pelvic lymphadenopathy. Peritoneum / Retroperitoneum: No free fluid or air within the abdomen. Vessels: No infrarenal aortic aneurysm. Heavy aortoiliac calcification. Bones and soft tissues: No suspicious lesion in the bones. Degenerative changes of the lumbar spine. IMPRESSION: Mild fluid throughout the large bowel, compatible with a diarrheal illness. No other acute findings. Hepatic steatosis/hepatomegaly again seen. Electronically signed by Herbert Bermudez 05-13-2024 6:49 PM
[2024-05-13 19:06] LABS: Norovirus GI/GII PCR DETECTED (NotDetected)
[2024-05-13] MEDS ORDERED: CARBOHYDRATES FOR HYPOGLYCEMIA PO PRN (22:55)
[2024-05-13] MEDS ORDERED: NITROGLYCERIN SL 0.4 MG/TAB TAB SL PRN (22:55)
[2024-05-13] MEDS ORDERED: GLUCOSE 40% GEL 15 GM TUBE PO PRN (22:55)
[2024-05-13] MEDS ORDERED: GLUCOSE 10 TAB/TUBE PO PRN (22:55)
[2024-05-13] MEDS ORDERED: GLUCAGON FOR INJ 1 MG VIAL SQ PRN (22:55)
[2024-05-13] MEDS ORDERED: DEXTROSE 50% 50 ML SYRINGE IV PRN (22:55)
[2024-05-14] MEDS: D5W AND NSS 1,000 ML IV SCH (00:52)
[2024-05-14] MEDS: HEPARIN SOD 5,000 UNIT/0.5 ML VIAL SQ SCH (00:54)
[2024-05-14] MEDS: QUEtiapine FUMARATE 25 MG TABLET PO SCH (00:58)
[2024-05-14] MEDS: DOXEPIN HCL 10 MG CAPSULE PO STA (00:58)
[2024-05-14 05:43] LABS: BUN Creatinine Ratio 22.1 (10-20); Calcium 7.8 mg/dl (8.6-10.3); Creatinine Clr Calc Pharmacy 67.1 ml/min; Phosphorus 3.3 mg/dl (2.5-4.9); Potassium 3.9 mmol/L (3.5-5.1)
[2024-05-14 05:44] LABS: Basophils # (auto) 0.03 K/uL (0.00-0.20); Basophils % (auto) 0.5 %; Eosinophils # (auto) 0.02 K/uL (0.00-0.50); Eosinophils % (auto) 0.3 %; Hematocrit (blood only) 35.4 % (42.0-52.0); Hemoglobin 11.3 g/dl (14.0-18.0); Immature Granulocytes # (auto) 0.06 K/uL (0.01-0.20); Lymphocytes % (auto) 23.2 %; Mean Corpuscular Hgb Conc 31.9 g/dL (32.0-36.0); Mean Platelet Volume 11.2 fL (9.4-12.4); Monocytes # (auto) 0.95 K/uL (0.11-0.59); Monocytes % (auto) 15.7 %; Neutrophils # (auto) 3.58 K/uL (1.40-6.50); Neutrophils % (auto) 59.3 %; Platelet Count 95 K/uL (130-400); RDW Coefficient of Variation 16.8 % (11.5-14.5); RDW Standard Deviation 56.3 fL (36.4-46.3); Red Blood Count 3.89 M/uL (4.70-6.10); White Blood Count 6.04 K/ul (4.8-10.8)
--- NOTE | 2024-05-14 06:09 | History & Physical Report ---
Date of Service May 13, 2024 Assessment & Plan (1) Enteritis due to Norovirus: Plan: 68-year-old male comes from [facility] with past medical significant for dyslipidemia, type 2 diabetes, history of CAD, history of systolic and diastolic CHF EF 45% echo 2018 and EF 50 to 50% on echo done in 2022, history of spina bifida, history of mild intellectual disability, impulsive disorder, generalized disorder, depression, hypothyroidism, GERD, BPH, history of prior hepatitis B infection, CKD,presents with nausea vomiting diarrhea and drowsiness. Patient currently more awake. Can tell his name. Seen somewhat confused. As per staff patient has been more lethargic and sleepy during last 1 day. Multiple episodes of nausea ,vomiting and diarrhea. And blood pressure was running 90s. His glucometer was reading error. He did not eat much for last 1 day. So the staff brought him here. No fevers. No complaint of any pain. Patient denies any headache. Denies chest pain. Denies abdominal pain. Denies shortness of breath. His hemodynamics are okay currently. During recent admissions he was requiring oxygen while sleeping but patient is noncompliant as per staff. But staff says that they are checking his oxygen saturations and they are okay. Enteritis due to norovirus Came with nausea vomiting diarrhea and lethargy Positive for norovirus Clear liquid diet IV fluids IV antiemetics Supportive care Contact precautions Close monitor HESHAM Presented with creatinine of 2.3 Baseline creatinine around 1.1 Avoid nephrotoxic agents .holding Lasix and lisinopril Getting fluids Follow repeat labs Hyponatremia Sodium 131 Getting fluids Follow repeat labs Hypertension As patient has nausea vomiting and diarrhea and blood pressure soft , will hold lisinopril and Lasix Cut back Coreg to 12.5 twice daily with holding parameters Close monitor Diabetes Last admission glimepiride was DC'd as patient was having hypoglycemic episodes Seems currently on Jardiance and glimepiride Will hold home medications Sliding scale Will monitor Right ICA stenosis On aspirin Last admit was started on statin but not on current home med list Nocturnal hypoxemia Noncompliant with oxygen use Will monitor Needs sleep study Chronic systolic and diastolic CHF EF 50 to 50% on echo in 2022 Holding his Lasix currently Getting fluids Monitor for volume overload Hypothyroidism On Synthyroid GERD Omeprazole History of depression Generalized anxiety disorder Compulsive disorder and mild intellectual disability On venlafaxine, divalproex, buspirone, bupropion, Abilify and doxepin And also Seroquel and risperidone Will monitor. If still continues to be drowsy will hold some of his medications History of CAD On aspirin and beta-kenyatta History of BPH Monitor for urinary retention History of spina bifida DVT prophylaxis Heparin subcu Disposition MedSurg with telemetry CODE STATUS. DNR/DNI as per my discussion with the caregivers History of Present Illness Chief Complaint: Nausea vomiting diarrhea and drowsiness Primary Care Provider: Tim Swenson DO 68-year-old male comes from [place] [facility] with past medical significant for dyslipidemia, type 2 diabetes, history of CAD, history of systolic and diastolic CHF EF 45% echo 2018 and EF 50 to 50% on echo done in 2022, history of spina bifida, history of mild intellectual disability, impulsive disorder, generalized disorder, depression, hypothyroidism, GERD, BPH, history of prior hepatitis B infection, CKD,presents with nausea vomiting diarrhea and drowsiness. Patient currently more awake. Can tell his name. Seen somewhat confused. As per staff patient has been more lethargic and sleepy during last 1 day. Multiple episodes of nausea ,vomiting and diarrhea. And blood pressure was running 90s. His glucometer was reading error. He did not eat much for last 1 day. So the staff brought him here. No fevers. No complaint of any pain. Patient denies any headache. Denies chest pain. Denies abdominal pain. Denies shortness of breath. His hemodynamics are okay currently. During recent admissions he was requiring oxygen while sleeping but patient is noncompliant as per staff. But staff says that they are checking his oxygen saturations and they are okay. Past medical history. As mentioned above Past surgical history. Bilateral alveloplasty. Colonoscopy. EGD. EGD with endoscopic ultrasound. Surgical extraction of ruptured tooth. Social history. No smoking. No alcoholism. No drug use. Family history. Mother had diabetes. Heart disorder. Father had heart disorder. Maternal grandfather had stroke. Maternal grandmother had stroke Allergies Allergy/AdvReac Type Severity Reaction Status Date / Time terbinafine Allergy Mild RASH ON Verified 07/23/22 08:56 ARM? Home Medications Medication Instructions Recorded Confirmed Type aripiprazole 15 mg tablet 15 mg PO DAILY 05/13/24 05/13/24 History aspirin 81 mg chewable tablet 81 mg PO DAILY 05/13/24 05/13/24 History bupropion HCl 300 mg 24 hr tablet, 300 mg PO DAILY 05/13/24 05/13/24 History extended release buspirone 15 mg tablet 15 mg PO BID 05/13/24 05/13/24 History carvedilol 25 mg tablet (Coreg) 25 mg PO BID 05/13/24 05/13/24 History divalproex 500 mg tablet,extended 1,500 mg PO DAILY 05/13/24 05/13/24 History release 24 hr doxepin 10 mg capsule 10 mg PO HS 05/13/24 05/13/24 History empagliflozin 25 mg tablet 25 mg PO DAILY 05/13/24 05/13/24 History (Jardiance) furosemide 40 mg tablet 40 mg PO DAILY 05/13/24 05/13/24 History glimepiride 2 mg tablet 2 mg PO DAILY 05/13/24 05/13/24 History levothyroxine 100 mcg tablet 100 mcg PO DAILY 05/13/24 05/13/24 History lisinopril 10 mg tablet 10 mg PO DAILY 05/13/24 05/13/24 History multivitamin with folic acid 400 1 tab PO DAILY 05/13/24 05/13/24 History mcg tablet (Daily-Ezekiel (with folic acid)) quetiapine 50 mg tablet 50 mg PO UD 05/13/24 05/13/24 History risperidone 0.25 mg tablet 0.25 mg PO DAILY 05/13/24 05/13/24 History sennosides 8.6 mg tablet (senna) 8.6 mg PO BID 05/13/24 05/13/24 History sucralfate 1 gram tablet 1 g PO DAILY 05/13/24 05/13/24 History venlafaxine 37.5 mg 37.5 mg PO DAILY 05/13/24 05/13/24 History capsule,extended release 24 hr venlafaxine 75 mg capsule,extended 75 mg PO DAILY 05/13/24 05/13/24 History release 24 hr Past Med/Surg History Problem List (Updated 05/13/24 @ 19:47 by Lorri Crandall MD) Enteritis due to Norovirus (Acute) Acute dehydration (Acute) HESHAM (acute kidney injury) (Acute) Nausea, vomiting, and diarrhea (Acute) Internal carotid artery stenosis (Acute) Slurred speech (Acute) Hypoglycemia (Acute) Nocturnal hypoxemia Acute dyspnea (Acute) Severe sepsis Acute hyponatremia (Acute) Elevated lactic acid level (Acute) Leukocytosis (Acute) Dehydration (Acute) HESHAM (acute kidney injury) (Acute) Hypotension (Acute) Elevated troponin (Acute) Sepsis (Acute) Back pain Closed L2 vertebral fracture (Acute) Pulmonary edema (Acute) Pneumonitis (Acute) Lactic acidemia (Acute) Contrast dye induced nephropathy Acute renal insufficiency Elevated troponin Chronic heart failure with reduced ejection fraction and diastolic dysfunction Elevated troponin I level Acute respiratory failure with hypoxia Influenza A (Acute) Low oxygen saturation Respiratory distress Hypertension (Acute) Intellectual disability (Acute) Acute kidney failure Aspiration into airway (Acute) Airway clearance impairment (Acute) Encounter for pre-operative examination Congestive heart failure (CHF) Acute respiratory failure with hypoxia Aspiration pneumonia DVT prophylaxis Discharge planning issues Psychiatric disorder Intermittent explosive disorder Anxiety disorder, unspecified Depression Oral candidiasis Weakness (Acute) DVT prophylaxis CHF (congestive heart failure) Sepsis (Acute) Severe sepsis Abdominal pain Cholelithiasis Encounter for pre-operative examination History of laparoscopic cholecystectomy Laparoscopic cholecystectomy [address] Wolff Vocal cord paralysis, unilateral complete H/O tooth extraction Coronary artery disease (Chronic) GERD (gastroesophageal reflux disease) (Chronic) Medical History Thrombocytopenia Chronic thrombocytopenia, baseline platelets low 100s per chart review Obesity Cerebral palsy Moderate intellectual disabilities sister/POA -ASHLEY IRENE [phone]-[facility] 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 SIGNS CONSENTS Anemia MRSA (methicillin resistant Staphylococcus aureus) carrier Dysphagia Keratoconus Cataract Arthritis Spina bifida Hypothyroidism Diabetes mellitus, type 2 Chronic ischemic heart disease Hyperlipidemia Hypertension Intermittent explosive disorder Impulse control disorder Severe anxiety Combative behavior Fall Fall risk Surgical History History of esophagogastroduodenoscopy (EGD) History of colonoscopy EGD/colonoscopy (12/07/19): MAC sedation at [facility] History of bronchoscopy Flexible bronchoscopy with BAL (02/04/18): Grade view 1, Elective glidescope #4, ETT 8.5 at [facility] (done for aspiration PNA) Family History Other No significant family history Social History Smoking Status: Never smoker Second Hand Exposure: No; Do You Dip or Chew Tobacco: No; Hx Alcohol Use: No Hx Substance Use: No Preferred Language: Thai Communication Ability: Effective Communication Ability Comment: PT IS INTELLECTUALLY IMPAIRED Alligator Trapper Required: No Beliefs That Will Affect Care: None marital status: Single Current Living Situation: Other Current Living Situation Comment: [facility] current occupational status: disabled Feels Safe at Home: Yes Assistive Devices: Wheelchair Review of Systems Review of Systems: Unobtainable due to reduced consciousness Physical Exam Physical Exam: General- Not in acute distress Head- atraumatic Eyes- PERRL. ENT- oropharynx clear Neck- supple, no JVD. Lungs- clear to auscultation no wheezing or crackles Heart- regular rate and rhythm; no murmur, no gallop. Abdomen- normal bowel sounds, soft, nontender, no distension. Extremities- no pretibial edema, no erythema seen Neuro- alert, oriented x 1; PERRL, no facial palsy; no dysarthria;obeys simple commands, moves extremities Results & Data Results & Data Vital Signs (Past 12 Hours) Vital Signs Temp Pulse Pulse Resp BP BP Pulse Ox 05/13/24 19:00 76 20 95 05/13/24 18:59 77 23 120/82 95 05/13/24 17:00 72 17 130/70 05/13/24 16:30 69 18 105/58 L 95 05/13/24 16:12 73 15 116/58 L 05/13/24 15:39 71 15 102/53 L 92 05/13/24 15:21 71 21 102/53 L 05/13/24 15:10 76 05/13/24 14:28 92 05/13/24 14:17 37.1 C 78 19 95/52 L O2 Del Method 05/13/24 19:00 05/13/24 18:59 05/13/24 17:00 05/13/24 16:30 05/13/24 16:12 05/13/24 15:39 Room Air 05/13/24 15:21 05/13/24 15:10 05/13/24 14:28 Room Air 05/13/24 14:17 Diagnostic Findings Laboratory Results WBC 6.04 K/ul (4.8-10.8) 05/14/24 04:57 RBC 3.89 M/uL (4.70-6.10) L 05/14/24 04:57 Hgb 11.3 g/dl (14.0-18.0) L 05/14/24 04:57 Hct 35.4 % (42.0-52.0) L 05/14/24 04:57 MCV 91.0 fL (80.0-100.0) 05/14/24 04:57 MCH 29.0 pg (25.0-34.0) 05/14/24 04:57 MCHC 31.9 g/dL (32.0-36.0) L 05/14/24 04:57 RDW Std Deviation 56.3 fL (36.4-46.3) H 05/14/24 04:57 RDW Coeff of Josiah 16.8 % (11.5-14.5) H 05/14/24 04:57 Plt Count 95 K/uL (130-400) L 05/14/24 04:57 MPV 11.2 fL (9.4-12.4) 05/14/24 04:57 Immature Gran % (Auto) 1.0 % 05/14/24 04:57 Neut % (Auto) 59.3 % 05/14/24 04:57 Lymph % (Auto) 23.2 % 05/14/24 04:57 Cavalier % (Auto) 15.7 % 05/14/24 04:57 Eos % (Auto) 0.3 % 05/14/24 04:57 Baso % (Auto) 0.5 % 05/14/24 04:57 Neut # (Auto) 3.58 K/uL (1.40-6.50) 05/14/24 04:57 Lymph # (Auto) 1.40 K/uL (1.20-3.40) 05/14/24 04:57 Cavalier # (Auto) 0.95 K/uL (0.11-0.59) H 05/14/24 04:57 Eos # (Auto) 0.02 K/uL (0.00-0.50) 05/14/24 04:57 Baso # (Auto) 0.03 K/uL (0.00-0.20) 05/14/24 04:57 Immature Gran # (Auto) 0.06 K/uL (0.01-0.20) 05/14/24 04:57 PT 11.3 Seconds (9.0-12.0) 05/13/24 14:50 INR 1.0 (0.9-1.1) 05/13/24 14:50 Sodium 135 mmol/L (136-145) L 05/14/24 04:57 Potassium 3.9 mmol/L (3.5-5.1) 05/14/24 04:57 Chloride 109 mmol/L (98-107) H 05/14/24 04:57 Carbon Dioxide 20 mmol/L (21-32) L 05/14/24 04:57 Anion Gap 6 (3-11) 05/14/24 04:57 BUN 29 mg/dl (6-23) H 05/14/24 04:57 Creatinine 1.31 mg/dl (0.6-1.4) D 05/14/24 04:57 Est Cr Clr Drug Dosing 67.1 ml/min 05/14/24 04:57 eGFR 60.03 05/14/24 04:57 BUN/Creatinine Ratio 22.1 (10-20) H 05/14/24 04:57 Glucose 117 mg/dl (70-99(Fasting)) H 05/14/24 04:57 Lactate 1.7 mmol/L (0.4-2.0) 05/13/24 15:29 Calcium 7.8 mg/dl (8.6-10.3) L 05/14/24 04:57 Phosphorus 3.3 mg/dl (2.5-4.9) 05/14/24 04:57 Magnesium 2.0 mg/dl (1.7-2.4) 05/14/24 04:57 Total Bilirubin 0.4 mg/dl (0.2-1.0) 05/13/24 14:50 AST 34 U/L (13-39) 05/13/24 14:50 ALT 24 U/L (7-52) 05/13/24 14:50 Alkaline Phosphatase 56 U/L (34-104) 05/13/24 14:50 Troponin I High Sens 8.7 pg/ml (0-20) 05/13/24 14:50 Total Protein 8.1 gm/dl (6.0-8.3) 05/13/24 14:50 Albumin 3.6 gm/dl (3.4-5.0) 05/13/24 14:50 Globulin 4.5 gm/dl (2.5-4.0) H 05/13/24 14:50 Albumin/Globulin Ratio 0.8 (0.9-2) L 05/13/24 14:50 Lipase 35 U/L (11-82) 05/13/24 14:50 Stl C. cayetanensis PCR Not Detected (NotDetected) 05/13/24 Unknown Stool Rotavirus A PCR Not Detected (NotDetected) 05/13/24 Unknown Stl Adenov F 40/41 PCR Not Detected (NotDetected) 05/13/24 Unknown Stool Astrovirus (PCR) Not Detected (NotDetected) 05/13/24 Unknown Stool Campylobacter PCR Not Detected (NotDetected) 05/13/24 Unknown Stl C. diff Tox B Gene Negative Cdiff Gene (Neg) 05/13/24 Unknown Stool Cryptosporidium PCR Not Detected (NotDetected) 05/13/24 Unknown Stl E.coli Shiga Tox PCR Not Detected (NotDetected) 05/13/24 Unknown Stl Enterotoxigenic E PCR Not Detected (NotDetected) 05/13/24 Unknown Stool EPEC (PCR) Not Detected (NotDetected) 05/13/24 Unknown Stool EAEC (PCR) Not Detected (NotDetected) 05/13/24 Unknown Stl E. histolytica PCR Not Detected (NotDetected) 05/13/24 Unknown Stool Giardia Lamblia PCR Not Detected (NotDetected) 05/13/24 Unknown Stool Salmonella PCR Not Detected (NotDetected) 05/13/24 Unknown Stool Sapovirus (PCR) Not Detected (NotDetected) 05/13/24 Unknown Stl P. shigelloides PCR Not Detected (NotDetected) 05/13/24 Unknown Stl Shigella/EIEC PCR Not Detected (NotDetected) 05/13/[address].enterocolitica PCR Not Detected (NotDetected) 05/13/24 Unknown Stool Vibrio (PCR) Not Detected (NotDetected) 05/13/24 Unknown Stl Vibrio cholerae PCR Not Detected (NotDetected) 05/13/24 Unknown Stl Norovirus GI/GII PCR DETECTED (NotDetected) A* 05/13/24 Unknown Adenovirus (PCR) Not Detected (NotDetected) 05/13/24 14:50 B. pertussis DNA (PCR) Not Detected (NotDetected) 05/13/24 14:50 B.parapertussis DNA PCR Not Detected (NotDetected) 05/13/24 14:50 C. pneumoniae DNA (PCR) Not Detected (NotDetected) 05/13/24 14:50 Coronavirus OC43 (PCR) Not Detected (NotDetected) 05/13/24 14:50 Coronavirus HKU1 (PCR) Not Detected (NotDetected) 05/13/24 14:50 Coronavirus 229E (PCR) Not Detected (NotDetected) 05/13/24 14:50 SARS-CoV-2 (PCR) Not Detected (NotDetected) 05/13/24 14:50 Coronavirus NL63 (PCR) Not Detected (NotDetected) 05/13/24 14:50 Human Metapneumovir PCR Not Detected (NotDetected) 05/13/24 14:50 Influenza Type A (PCR) Not Detected (NotDetected) 05/13/24 14:50 Influenza Type B (PCR) Not Detected (NotDetected) 05/13/24 14:50 M. pneumoniae (PCR) Not Detected (NotDetected) 05/13/24 14:50 Parainfluenza 1 (PCR) Not Detected (NotDetected) 05/13/24 14:50 Parainfluenza 2 (PCR) Not Detected (NotDetected) 05/13/24 14:50 Parainfluenza 3 (PCR) Not Detected (NotDetected) 05/13/24 14:50 Parainfluenza 4 (PCR) Not Detected (NotDetected) 05/13/24 14:50 RSV (PCR) Not Detected (NotDetected) 05/13/24 14:50 Entero/Rhino (PCR) Not Detected (NotDetected) 05/13/24 14:50 Impressions Abdomen/Pelvis CT 05/13/24 17:21 EXAMINATION: CT of the abdomen and pelvis performed without contrast TECHNIQUE: Helical CT images from the lung bases through the symphysis pubis were obtained without contrast. Coronal and sagittal reformatted images were generated at a workstation for further assessment. Dose reduction techniques were achieved by using automatic exposure control and/or adjustment of mA and/or kV according to patient size and/or use of iterative reconstruction technique. COMPARISON: 04/05/2024 HISTORY: Abdominal pain. Diarrhea FINDINGS: Lower chest: No consolidation. No pleural effusion or pneumothorax. Calcification is seen in the wall of the ventricular septum and to the apical septal wall, suggesting prior myocardial infarct. Liver: No suspicious liver lesions. Hepatic steatosis. The liver is again enlarged. Gallbladder: Cholecystectomy changes. Spleen: Normal size. Pancreas: No suspicious pancreatic lesions. The pancreatic duct is not dilated. Adrenal glands: No adrenal nodules. Kidneys: No hydronephrosis or obstructing renal stones. Bladder / Pelvic organs: Unremarkable. Bowel: No bowel obstruction. No abnormal bowel wall thickening. The appendix is unremarkable. There is mild fluid throughout the large bowel, compatible with a diarrheal illness. Lymph nodes: No retroperitoneal, mesenteric, or pelvic lymphadenopathy. Peritoneum / Retroperitoneum: No free fluid or air within the abdomen. Vessels: No infrarenal aortic aneurysm. Heavy aortoiliac calcification. Bones and soft tissues: No suspicious lesion in the bones. Degenerative changes of the lumbar spine. IMPRESSION: Mild fluid throughout the large bowel, compatible with a diarrheal illness. No other acute findings. Hepatic steatosis/hepatomegaly again seen. Electronically signed by Herbert Bermudez 05-13-2024 6:49 PM ECG Additional Comments: ECG. Normal sinus rhythm rate of 75. No significant changes found. QTc 453. Code Status & VTE Plan VTE Prophylaxis Plan VTE Prophylaxis will be ordered: Yes
[2024-05-14] MEDS: CALCIUM GLUCONATE 1,000 MG/60 ML BAG IV STA (06:23)
[2024-05-14] MEDS: LEVOTHYROXINE SODIUM 100 MCG TABLET PO SCH (06:24)
--- NOTE | 2024-05-14 08:47 | Hospitalist Progress Note ---
Date of Service May 14, 2024 Assessment & Plan (1) Enteritis due to Norovirus: Plan: 68-year-old male comes from [place] [facility] with past medical significant for dyslipidemia, type 2 diabetes, history of CAD, history of systolic and diastolic CHF EF 45% echo 2018 and EF 50 to 50% on echo done in 2022, history of spina bifida, history of mild intellectual disability, impulsive disorder, generalized disorder, depression, hypothyroidism, GERD, BPH, history of prior hepatitis B infection, CKD,presents with nausea vomiting diarrhea and drowsiness. Patient currently more awake. Can tell his name. Seen somewhat confused. As per staff patient has been more lethargic and sleepy during last 1 day. Multiple episodes of nausea ,vomiting and diarrhea. And blood pressure was running 90s. His glucometer was reading error. He did not eat much for last 1 day. So the staff brought him here. No fevers. No complaint of any pain. Patient denies any headache. Denies chest pain. Denies abdominal pain. Denies shortness of breath. His hemodynamics are okay currently. During recent admissions he was requiring oxygen while sleeping but patient is noncompliant as per staff. But staff says that they are checking his oxygen saturations and they are okay. Enteritis due to norovirus Came with nausea vomiting diarrhea and lethargy Positive for norovirus Clear liquid diet IV fluids IV antiemetics Supportive care Contact precautions Close monitor HESHAM Presented with creatinine of 2.3 Baseline creatinine around 1.1 Avoid nephrotoxic agents .holding Lasix and lisinopril Getting fluids Current Cr down to 1.3 Hyponatremia Sodium 131 -> 135 Getting fluids Follow repeat labs Hypertension As patient has nausea vomiting and diarrhea and blood pressure soft , will hold lisinopril and Lasix Cut back Coreg to 12.5 twice daily with holding parameters Close monitor Diabetes Last admission glimepiride was DC'd as patient was having hypoglycemic episodes Seems currently on Jardiance and glimepiride Will hold home medications Sliding scale Will monitor Right ICA stenosis On aspirin Last admit was started on statin but not on current home med list Nocturnal hypoxemia Noncompliant with oxygen use Will monitor Needs sleep study Chronic systolic and diastolic CHF EF 50 to 50% on echo in 2022 Holding his Lasix currently Getting fluids Monitor for volume overload Hypothyroidism On Synthyroid GERD Omeprazole History of depression Generalized anxiety disorder Compulsive disorder and mild intellectual disability On venlafaxine, divalproex, buspirone, bupropion, Abilify and doxepin And also Seroquel and risperidone Will monitor. If still continues to be drowsy will hold some of his medications 05/13 Pt is awake, not drowsy at all today History of CAD On aspirin and beta-kenyatta History of BPH Monitor for urinary retention History of spina bifida DVT prophylaxis Heparin subcu Disposition MedSurg with telemetry CODE STATUS. DNR/DNI as per admitting provider discussion with the caregivers Admission and Anticipated Discharge Date Admission Date: May 13, 2024 Subjective Pt seen in follow up of n/v/d josé manuel [facility]. for Norovirus Pt is from [place] [facility] Was just discharged 04/22/24 from here Currently laying in bed in NAD Reports he is feeling much better and wants to go home Discussed w/ RN - pt is eating well Pt denies any chest pain or shortness of breath Review of Systems Review of Systems: All systems reviewed & are unremarkable except as noted in Subjective Physical Exam Physical Exam: General- Not in acute distress Head- atraumatic Eyes- PERRL. Neck- supple, no JVD. Lungs- clear to auscultation no wheezing or crackles Heart- regular rate and rhythm; no murmur, no gallop. Abdomen- normal bowel sounds, soft, nontender, no distension. Extremities- no pretibial edema, no erythema seen Neuro- alert, oriented x 1; PERRL, no facial palsy; no dysarthria;obeys simple commands, moves extremities Results & Data Results & Data Vital Signs (Past 12 Hours) Vital Signs Temp Pulse Pulse Resp BP BP Pulse Ox 05/14/24 07:47 36.5 C 82 20 177/100 H 95 05/14/24 07:05 79 05/14/24 03:28 80 14 161/89 H 94 05/13/24 23:22 73 18 158/77 H 95 05/13/24 21:46 77 05/13/24 21:35 77 16 178/92 H 94 O2 Del Method 05/14/24 07:47 Room Air 05/14/24 07:05 05/14/24 03:28 Room Air 05/13/24 23:22 Room Air 05/13/24 21:46 05/13/24 21:35 Laboratory Results 05/14/24 05/14/24 05/13/24 Range/Units 07:48 04:57 Unknown WBC 6.04 (4.8-10.8) K/ul RBC 3.89 L (4.70-6.10) M/uL Hgb 11.3 L (14.0-18.0) g/dl Hct 35.4 L (42.0-52.0) % MCV 91.0 (80.0-100.0) fL MCH 29.0 (25.0-34.0) pg MCHC 31.9 L (32.0-36.0) g/dL RDW Std Deviation 56.3 H (36.4-46.3) fL RDW Coeff of Josiah 16.8 H (11.5-14.5) % Plt Count 95 L (130-400) K/uL MPV 11.2 (9.4-12.4) fL Immature Gran % (Auto) 1.0 % Neut % (Auto) 59.3 % Lymph % (Auto) 23.2 % [place] % (Auto) 15.7 % Eos % (Auto) 0.3 % Baso % (Auto) 0.5 % Neut # (Auto) 3.58 (1.40-6.50) K/uL Lymph # (Auto) 1.40 (1.20-3.40) K/uL [place] # (Auto) 0.95 H (0.11-0.59) K/uL Eos # (Auto) 0.02 (0.00-0.50) K/uL Baso # (Auto) 0.03 (0.00-0.20) K/uL Immature Gran # (Auto) 0.06 (0.01-0.20) K/uL PT (9.0-12.0) Seconds INR (0.9-1.1) Sodium 135 L (136-145) mmol/L Potassium 3.9 (3.5-5.1) mmol/L Chloride 109 H (98-107) mmol/L Carbon Dioxide 20 L (21-32) mmol/L Anion Gap 6 (3-11) BUN 29 H (6-23) mg/dl Creatinine 1.31 D (0.6-1.4) mg/dl Est Cr Clr Drug Dosing 67.1 ml/min eGFR 60.03 BUN/Creatinine Ratio 22.1 H (10-20) Glucose 117 H (70-99(Fasting)) mg/dl POC Glucose 161 H (70-99) mg/dl Lactate (0.4-2.0) mmol/L Calcium 7.8 L (8.6-10.3) mg/dl Phosphorus 3.3 (2.5-4.9) mg/dl Magnesium 2.0 (1.7-2.4) mg/dl Total Bilirubin (0.2-1.0) mg/dl AST (13-39) U/L ALT (7-52) U/L Alkaline Phosphatase (34-104) U/L Troponin I High Sens (0-20) pg/ml Total Protein (6.0-8.3) gm/dl Albumin (3.4-5.0) gm/dl Globulin (2.5-4.0) gm/dl Albumin/Globulin Ratio (0.9-2) Lipase (11-82) U/L 25-OH Vitamin D Total (30-100) ng/ml Stl C. cayetanensis PCR Not Detected (NotDetected) Stool Rotavirus A PCR Not Detected (NotDetected) Stl Adenov F 40/41 PCR Not Detected (NotDetected) Stool Astrovirus (PCR) Not Detected (NotDetected) Stool Campylobacter PCR Not Detected (NotDetected) Stl C. diff Tox B Gene Negative Cdiff Gene (Neg) Stool Cryptosporidium PCR Not Detected (NotDetected) Stl E.coli Shiga Tox PCR Not Detected (NotDetected) Stl Enterotoxigenic E PCR Not Detected (NotDetected) Stool EPEC (PCR) Not Detected (NotDetected) Stool EAEC (PCR) Not Detected (NotDetected) Stl E. histolytica PCR Not Detected (NotDetected) Stool Giardia Lamblia PCR Not Detected (NotDetected) Stool Salmonella PCR Not Detected (NotDetected) Stool Sapovirus (PCR) Not Detected (NotDetected) Stl P. shigelloides PCR Not Detected (NotDetected) Stl Shigella/EIEC PCR Not Detected (NotDetected) St Y.enterocolitica PCR Not Detected (NotDetected) Stool Vibrio (PCR) Not Detected (NotDetected) Stl Vibrio cholerae PCR Not Detected (NotDetected) Stl Norovirus GI/GII PCR DETECTED A* (NotDetected) Adenovirus (PCR) (NotDetected) B. pertussis DNA (PCR) (NotDetected) B.parapertussis DNA PCR (NotDetected) C. pneumoniae DNA (PCR) (NotDetected) Coronavirus OC43 (PCR) (NotDetected) Coronavirus HKU1 (PCR) (NotDetected) Coronavirus 229E (PCR) (NotDetected) SARS-CoV-2 (PCR) (NotDetected) Coronavirus NL63 (PCR) (NotDetected) Human Metapneumovir PCR (NotDetected) Influenza Type A (PCR) (NotDetected) Influenza Type B (PCR) (NotDetected) M. pneumoniae (PCR) (NotDetected) Parainfluenza 1 (PCR) (NotDetected) Parainfluenza 2 (PCR) (NotDetected) Parainfluenza 3 (PCR) (NotDetected) Parainfluenza 4 (PCR) (NotDetected) RSV (PCR) (NotDetected) Entero/Rhino (PCR) (NotDetected) 05/13/24 05/13/24 Range/Units 15:29 14:50 WBC 6.69 (4.8-10.8) K/ul RBC 4.17 L (4.70-6.10) M/uL Hgb 11.9 L (14.0-18.0) g/dl Hct 37.6 L (42.0-52.0) % MCV 90.2 (80.0-100.0) fL MCH 28.5 (25.0-34.0) pg MCHC 31.6 L (32.0-36.0) g/dL RDW Std Deviation 56.4 H (36.4-46.3) fL RDW Coeff of Josiah 17.2 H (11.5-14.5) % Plt Count 122 L (130-400) K/uL MPV 11.4 (9.4-12.4) fL Immature Gran % (Auto) 1.5 % Neut % (Auto) 63.4 % Lymph % (Auto) 22.6 % [place] % (Auto) 12.1 % Eos % (Auto) 0.1 % Baso % (Auto) 0.3 % Neut # (Auto) 4.24 (1.40-6.50) K/uL Lymph # (Auto) 1.51 (1.20-3.40) K/uL [place] # (Auto) 0.81 H (0.11-0.59) K/uL Eos # (Auto) 0.01 (0.00-0.50) K/uL Baso # (Auto) 0.02 (0.00-0.20) K/uL Immature Gran # (Auto) 0.10 (0.01-0.20) K/uL PT 11.3 (9.0-12.0) Seconds INR 1.0 (0.9-1.1) Sodium 131 L (136-145) mmol/L Potassium 3.8 (3.5-5.1) mmol/L Chloride 102 (98-107) mmol/L Carbon Dioxide 21 (21-32) mmol/L Anion Gap 8 (3-11) BUN 40 H (6-23) mg/dl Creatinine 2.33 H (0.6-1.4) mg/dl Est Cr Clr Drug Dosing 37.7 ml/min eGFR 30.08 BUN/Creatinine Ratio 17.2 (10-20) Glucose 105 H (70-99(Fasting)) mg/dl POC Glucose (70-99) mg/dl Lactate 1.7 (0.4-2.0) mmol/L Calcium 8.1 L (8.6-10.3) mg/dl Phosphorus (2.5-4.9) mg/dl Magnesium (1.7-2.4) mg/dl Total Bilirubin 0.4 (0.2-1.0) mg/dl AST 34 (13-39) U/L ALT 24 (7-52) U/L Alkaline Phosphatase 56 (34-104) U/L Troponin I High Sens 8.7 (0-20) pg/ml Total Protein 8.1 (6.0-8.3) gm/dl Albumin 3.6 (3.4-5.0) gm/dl Globulin 4.5 H (2.5-4.0) gm/dl Albumin/Globulin Ratio 0.8 L (0.9-2) Lipase 35 (11-82) U/L 25-OH Vitamin D Total 23.2 L (30-100) ng/ml Stl C. cayetanensis PCR (NotDetected) Stool Rotavirus A PCR (NotDetected) Stl Adenov F 40/41 PCR (NotDetected) Stool Astrovirus (PCR) (NotDetected) Stool Campylobacter PCR (NotDetected) Stl C. diff Tox B Gene (Neg) Stool Cryptosporidium PCR (NotDetected) Stl E.coli Shiga Tox PCR (NotDetected) Stl Enterotoxigenic E PCR (NotDetected) Stool EPEC (PCR) (NotDetected) Stool EAEC (PCR) (NotDetected) Stl E. histolytica PCR (NotDetected) Stool Giardia Lamblia PCR (NotDetected) Stool Salmonella PCR (NotDetected) Stool Sapovirus (PCR) (NotDetected) Stl P. shigelloides PCR (NotDetected) Stl Shigella/EIEC PCR (NotDetected) St Y.enterocolitica PCR (NotDetected) Stool Vibrio (PCR) (NotDetected) Stl Vibrio cholerae PCR (NotDetected) Stl Norovirus GI/GII PCR (NotDetected) Adenovirus (PCR) Not Detected (NotDetected) B. pertussis DNA (PCR) Not Detected (NotDetected) B.parapertussis DNA PCR Not Detected (NotDetected) C. pneumoniae DNA (PCR) Not Detected (NotDetected) Coronavirus OC43 (PCR) Not Detected (NotDetected) Coronavirus HKU1 (PCR) Not Detected (NotDetected) Coronavirus 229E (PCR) Not Detected (NotDetected) SARS-CoV-2 (PCR) Not Detected (NotDetected) Coronavirus NL63 (PCR) Not Detected (NotDetected) Human Metapneumovir PCR Not Detected (NotDetected) Influenza Type A (PCR) Not Detected (NotDetected) Influenza Type B (PCR) Not Detected (NotDetected) M. pneumoniae (PCR) Not Detected (NotDetected) Parainfluenza 1 (PCR) Not Detected (NotDetected) Parainfluenza 2 (PCR) Not Detected (NotDetected) Parainfluenza 3 (PCR) Not Detected (NotDetected) Parainfluenza 4 (PCR) Not Detected (NotDetected) RSV (PCR) Not Detected (NotDetected) Entero/Rhino (PCR) Not Detected (NotDetected) Medications Administered Current Inpatient Medications Acetaminophen (Acetaminophen 325 Mg Tab) 650 mg PO Q4H PRN PRN Reason: Pain or Fever Stop: 06/12/24 22:54 Aripiprazole (Aripiprazole 15 Mg Tab) 15 mg PO DAILY SUPRIYA Stop: 06/13/24 08:59 Aspirin (Aspirin 81 Mg Ectab) 81 mg PO DAILY SUPRIYA Stop: 06/13/24 08:59 Bupropion HCl (Bupropion Xl 300 Mg Tabcr) 300 mg PO DAILY SUPRIYA Stop: 06/13/24 08:59 Buspirone HCl (Buspirone 15 Mg Tab) 15 mg PO BID SUPRIYA Stop: 06/13/24 08:59 Carvedilol (Carvedilol 12.5 Mg Tab) 12.5 mg PO BIDM [facility] Stop: 06/13/24 07:59 Dextrose (Dextrose 50% 50 Ml Syringe) 25 - 50 ml IV UD PRN; Protocol PRN Reason: Hypoglycemia Protocol Stop: 06/12/24 22:54 Divalproex Sodium (Divalproex Extended Release 500 Mg Tab) 1,500 mg PO DAILY SUPRIYA Stop: 06/13/24 08:59 Doxepin HCl (Doxepin Hcl 10 Mg Capsule) 10 mg PO HS SUPRIYA Stop: 06/13/24 20:59 Glucagon (Glucagon For Inj 1 Mg Vial) 1 mg SQ UD PRN; Protocol PRN Reason: Hypoglycemia Protocol Stop: 06/12/24 22:54 Glucose (Glucose 40% Gel 15 Gm Tube) 15 - 30 gm PO UD PRN; Protocol PRN Reason: Hypoglycemia Protocol Stop: 06/12/24 22:54 Glucose (Glucose 10 Tab/Tube) 4 - 8 tab PO UD PRN; Protocol PRN Reason: Hypoglycemia Protocol Stop: 06/12/24 22:54 Heparin Sodium (Porcine) (Heparin Sod 5,000 Unit/0.5 Ml Vial) 5,000 units SQ Q12 SUPRIYA Stop: 06/12/24 22:54 Last Admin: 05/14/24 00:54 Dose: 5,000 units Dextrose/Sodium Chloride (D5w And Nss) 1,000 mls @ 80 mls/hr IV .[id number] SUPRIYA Stop: 05/14/24 22:54 Last Admin: 05/14/24 00:52 Dose: 125 mls/hr Thiamine HCl 100 mg/ Syringe 10 mls @ 2 mls/min IV QAM SUPR[facility] Stop: 06/13/24 08:59 Folic Acid 1 mg/ Syringe 10 mls @ 5 mls/min IV QAM SUPR[facility] Stop: 06/13/24 08:59 Insulin Aspart (Insulin Aspart Per Unit Charge) 0 units SC ACHS SUPRI[facility] Stop: 06/13/24 07:29 Levothyroxine Sodium (Levothyroxine Sodium 100 Mcg Tablet) 100 mcg PO DAILYBB SUPRYIA Stop: 06/13/24 06:29 Last Admin: 05/14/24 06:24 Dose: 100 mcg Miscellaneous (Carbohydrates For Hypoglycemia ) 15 - 30 gm PO UD PRN PRN Reason: Hypoglycemia Protocol Stop: 06/12/24 22:54 Multivitamins (Multivitamin Tab) 1 tab PO DAILY SUPRIYA Stop: 06/13/24 08:59 Nitroglycerin (Nitroglycerin Sl 0.4 Mg/Tab Tab) 0.4 mg SL Q5M PRN PRN Reason: Chest Pain Stop: 06/12/24 22:54 Quetiapine Fumarate (Quetiapine Fumarate 25 Mg Tablet) 50 mg PO TID@0800,1400,2000 SUPRIYA Stop: 06/12/24 22:54 Last Admin: 05/14/24 00:58 Dose: 50 mg Risperidone (Risperidone 0.25 Mg Tab) 0.25 mg PO DAILY SUPRIYA Stop: 06/13/24 08:59 Sucralfate (Sucralfate 1 Gm Tab) 1 gm PO DAILY SUPRIYA Stop: 06/13/24 08:59 Venlafaxine HCl (Venlafaxine Hcl Xr 37.5 Mg Capxr) 37.5 mg PO DAILY SUPRIYA Stop: 06/13/24 08:59 Venlafaxine HCl (Venlafaxine Hcl Xr 75 Mg Capxr) 75 mg PO DAILY SUPRIYA Stop: 06/13/24 08:59
[2024-05-14] MEDS: ASPIRIN 81 MG ECTAB PO SCH (09:46)
[2024-05-14] MEDS: FOLIC ACID 1 MG in SYRINGE 9.8 ML IV SCH (09:46)
[2024-05-14] MEDS: THIAMINE HCL 100 MG in SYRINGE 9 ML IV SCH (09:46)
[2024-05-14] MEDS: SUCRALFATE 1 GM TAB PO SCH (09:46)
[2024-05-14] MEDS: DIVALPROEX EXTENDED RELEASE 500 MG TAB PO SCH (09:46)
[2024-05-14] MEDS: carvediloL 12.5 MG TAB PO SCH (09:46)
[2024-05-14] MEDS: ARIPiprazole 15 MG TAB PO SCH (09:46)
[2024-05-14] MEDS: buPROPion XL 300 MG TABCR PO SCH (09:46)
[2024-05-14] MEDS: VENLAFAXINE HCL XR 75 MG CAPXR PO SCH (09:46)
[2024-05-14] MEDS: busPIRone 15 MG TAB PO SCH (09:47)
[2024-05-14] MEDS: MULTIVITAMIN TAB PO SCH (09:47)
[2024-05-14] MEDS: risperiDONE 0.25 MG TAB PO SCH (09:47)
[2024-05-14] MEDS: VENLAFAXINE HCL XR 37.5 MG CAPXR PO SCH (09:57)
[2024-05-14] MEDS: INSULIN ASPART PER UNIT CHARGE SC SCH (10:13)
[2024-05-14] MEDS: ERGOCALCIFEROL 1250 MCG (50,000 UNITS) CAP PO SCH (16:46)
[2024-05-14] MEDS: DOXEPIN HCL 10 MG CAPSULE PO SCH (21:49)
[2024-05-15 07:29] LABS: Hemoglobin 11.7 g/dl (14.0-18.0); Mean Corpuscular Hemoglobin 29.2 pg (25.0-34.0); Mean Corpuscular Hgb Conc 32.5 g/dL (32.0-36.0); Mean Corpuscular Volume 89.8 fL (80.0-100.0); Mean Platelet Volume 11.5 fL (9.4-12.4); Platelet Count 116 K/uL (130-400); RDW Coefficient of Variation 16.2 % (11.5-14.5); RDW Standard Deviation 53.1 fL (36.4-46.3); Red Blood Count 4.01 M/uL (4.70-6.10); White Blood Count 6.06 K/ul (4.8-10.8)
[2024-05-15 07:35] LABS: Creatinine Clr Calc Pharmacy 93.5 ml/min
[2024-05-15 07:39] LABS: Calcium 8.8 mg/dl (8.6-10.3); Magnesium 1.9 mg/dl (1.7-2.4); Phosphorus 2.7 mg/dl (2.5-4.9); Potassium 3.8 mmol/L (3.5-5.1)
[2024-05-15] MEDS: lisinopril 10 MG TAB PO SCH (08:32)
--- NOTE | 2024-05-15 10:12 | Hospitalist Progress Note ---
Date of Service May 15, 2024 Assessment & Plan (1) Enteritis due to Norovirus: Plan: 68-year-old male comes from [place] with past medical significant for dyslipidemia, type 2 diabetes, history of CAD, history of systolic and diastolic CHF EF 45% echo 2018 and EF 50 to 50% on echo done in 2022, history of spina bifida, history of mild intellectual disability, impulsive disorder, generalized disorder, depression, hypothyroidism, GERD, BPH, history of prior hepatitis B infection, CKD,presents with nausea vomiting diarrhea and drowsiness. Patient currently more awake. Can tell his name. Seen somewhat confused. As per staff patient has been more lethargic and sleepy during last 1 day. Multiple episodes of nausea ,vomiting and diarrhea. And blood pressure was running 90s. His glucometer was reading error. He did not eat much for last 1 day. So the staff brought him here. No fevers. No complaint of any pain. Patient denies any headache. Denies chest pain. Denies abdominal pain. Denies shortness of breath. His hemodynamics are okay currently. During recent admissions he was requiring oxygen while sleeping but patient is noncompliant as per staff. But staff says that they are checking his oxygen saturations and they are okay. Enteritis due to norovirus Came with nausea vomiting diarrhea and lethargy Positive for norovirus Clear liquid diet -> diet advanced and pt is tolerating IV fluids IV antiemetics Supportive care Contact precautions Close monitor HESHAM - resolved Presented with creatinine of 2.3 Baseline creatinine around 1.1 Avoid nephrotoxic agents .holding Lasix and lisinopril Getting fluids Current Cr down to 1 will resume lisinopril Hyponatremia Sodium 131 -> 135 -> 137 Getting fluids Follow repeat labs Hypertension As patient has nausea vomiting and diarrhea and blood pressure soft , held lisinopril and Lasix Cut back Coreg to 12.5 twice daily with holding parameters Close monitor BP now elevated, will resume lisinopril Diabetes Last admission glimepiride was DC'd as patient was having hypoglycemic episodes Seems currently on Jardiance and glimepiride Will hold home medications Sliding scale Will monitor Right ICA stenosis On aspirin Last admit was started on statin but not on current home med list Nocturnal hypoxemia Noncompliant with oxygen use Will monitor Needs sleep study Chronic systolic and diastolic CHF EF 50 to 50% on echo in 2023 Holding his Lasix currently Getting fluids Monitor for volume overload Hypothyroidism On Synthyroid GERD Omeprazole History of depression Generalized anxiety disorder Compulsive disorder and mild intellectual disability On venlafaxine, divalproex, buspirone, bupropion, Abilify and doxepin And also Seroquel and risperidone Will monitor. If still continues to be drowsy will hold some of his medications 05/13 Pt is awake, not drowsy at all today History of CAD On aspirin and beta-kenyatta History of BPH Monitor for urinary retention History of spina bifida DVT prophylaxis Heparin subcu Disposition MedSurg with telemetry CODE STATUS. DNR/DNI as per admitting provider discussion with the caregivers Admission and Anticipated Discharge Date Admission Date: May 13, 2024 Subjective Pt seen in follow up of n/v/josé manuel [place]. for Norovirus Pt is from [place] [facility] Was just discharged 04/22/24 from here Currently laying in bed in NAD Reports he is feeling much better and wants to go home Discussed w/ RN - pt is eating well Pt denies any chest pain or shortness of breath Contacted CM about poss. DC Review of Systems Review of Systems: All systems reviewed & are unremarkable except as noted in Subjective Physical Exam Physical Exam: General- Not in acute distress Head- atraumatic Eyes- PERRL. Neck- supple, no JVD. Lungs- clear to auscultation no wheezing or crackles Heart- regular rate and rhythm; no murmur, no gallop. Abdomen- normal bowel sounds, soft, nontender, no distension. Extremities- no pretibial edema, no erythema seen Neuro- alert, oriented x 1; PERRL, no facial palsy; no dysarthria;obeys simple commands, moves extremities Results & Data Results & Data Vital Signs (Past 12 Hours) Vital Signs Temp Pulse Pulse Pulse Resp BP Pulse Ox 05/15/24 07:24 36.8 C 80 18 211/99 H 97 05/15/24 06:18 83 05/14/24 23:17 36.6 C 83 18 182/80 H 95 O2 Del Method 05/15/24 07:24 Room Air 05/15/24 06:18 05/14/24 23:17 Room Air Laboratory Results 05/15/24 05/15/24 05/14/24 Range/Units 08:30 06:18 20:14 WBC 6.06 (4.8-10.8) K/ul RBC 4.01 L (4.70-6.10) M/uL Hgb 11.7 L (14.0-18.0) g/dl Hct 36.0 L (42.0-52.0) % MCV 89.8 (80.0-100.0) fL MCH 29.2 (25.0-34.0) pg MCHC 32.5 (32.0-36.0) g/dL RDW Std Deviation 53.1 H (36.4-46.3) fL RDW Coeff of Josiah 16.2 H (11.5-14.5) % Plt Count 116 L (130-400) K/uL MPV 11.5 (9.4-12.4) fL Sodium 137 (136-145) mmol/L Potassium 3.8 (3.5-5.1) mmol/L Chloride 106 (98-107) mmol/L Carbon Dioxide 25 (21-32) mmol/L Anion Gap 6 (3-11) BUN 12 (6-23) mg/dl Creatinine 0.92 D (0.6-1.4) mg/dl Est Cr Clr Drug Dosing 93.5 ml/min eGFR 91.74 BUN/Creatinine Ratio 13.0 (10-20) Glucose 100 H (70-99(Fasting)) mg/dl POC Glucose 120 H 81 (70-99) mg/dl Calcium 8.8 (8.6-10.3) mg/dl Phosphorus 2.7 (2.5-4.9) mg/dl Magnesium 1.9 (1.7-2.4) mg/dl 05/14/24 05/14/24 Range/Units 16:50 12:39 WBC (4.8-10.8) K/ul RBC (4.70-6.10) M/uL Hgb (14.0-18.0) g/dl Hct (42.0-52.0) % MCV (80.0-100.0) fL MCH (25.0-34.0) pg MCHC (32.0-36.0) g/dL RDW Std Deviation (36.4-46.3) fL RDW Coeff of Josiah (11.5-14.5) % Plt Count (130-400) K/uL MPV (9.4-12.4) fL Sodium (136-145) mmol/L Potassium (3.5-5.1) mmol/L Chloride (98-107) mmol/L Carbon Dioxide (21-32) mmol/L Anion Gap (3-11) BUN (6-23) mg/dl Creatinine (0.6-1.4) mg/dl Est Cr Clr Drug Dosing ml/min eGFR BUN/Creatinine Ratio (10-20) Glucose (70-99(Fasting)) mg/dl POC Glucose 95 130 H (70-99) mg/dl Calcium (8.6-10.3) mg/dl Phosphorus (2.5-4.9) mg/dl Magnesium (1.7-2.4) mg/dl Medications Administered Current Inpatient Medications Acetaminophen (Acetaminophen 325 Mg Tab) 650 mg PO Q4H PRN PRN Reason: Pain or Fever Stop: 06/12/24 22:54 Aripiprazole (Aripiprazole 15 Mg Tab) 15 mg PO DAILY SUPRIYA Stop: 06/13/24 08:59 Last Admin: 05/14/24 09:46 Dose: 15 mg Aspirin (Aspirin 81 Mg Ectab) 81 mg PO DAILY SUPRIYA Stop: 06/13/24 08:59 Last Admin: 05/15/24 08:04 Dose: 81 mg Bupropion HCl (Bupropion Xl 300 Mg Tabcr) 300 mg PO DAILY SUPRIYA Stop: 06/13/24 08:59 Last Admin: 05/15/24 08:31 Dose: 300 mg Buspirone HCl (Buspirone 15 Mg Tab) 15 mg PO BID SUPR[facility] Stop: 06/13/24 08:59 Last Admin: 05/15/24 08:04 Dose: 15 mg Carvedilol (Carvedilol 12.5 Mg Tab) 12.5 mg PO BIDM SUPRIYA Stop: 06/13/24 07:59 Last Admin: 05/15/24 08:03 Dose: 12.5 mg Dextrose (Dextrose 50% 50 Ml Syringe) 25 - 50 ml IV UD PRN; Protocol PRN Reason: Hypoglycemia Protocol Stop: 06/12/24 22:54 Divalproex Sodium (Divalproex Extended Release 500 Mg Tab) 1,500 mg PO DAILY [facility] Stop: 06/13/24 08:59 Last Admin: 05/14/24 09:46 Dose: 1,500 mg Doxepin HCl (Doxepin Hcl 10 Mg Capsule) 10 mg PO HS [facility] Stop: 06/13/24 20:59 Last Admin: 05/14/24 21:49 Dose: 10 mg Ergocalciferol (Ergocalciferol 1250 Mcg (50,000 Units) Cap) 1,250 mcg PO Q7D SUPRIYA Stop: 06/13/24 15:59 Last Admin: 05/14/24 16:46 Dose: Not Given Glucagon (Glucagon For Inj 1 Mg Vial) 1 mg SQ UD PRN; Protocol PRN Reason: Hypoglycemia Protocol Stop: 06/12/24 22:54 Glucose (Glucose 40% Gel 15 Gm Tube) 15 - 30 gm PO UD PRN; Protocol PRN Reason: Hypoglycemia Protocol Stop: 06/12/24 22:54 Glucose (Glucose 10 Tab/Tube) 4 - 8 tab PO UD PRN; Protocol PRN Reason: Hypoglycemia Protocol Stop: 06/12/24 22:54 Heparin Sodium (Porcine) (Heparin Sod 5,000 Unit/0.5 Ml Vial) 5,000 units SQ Q12 [facility]PR[facility] Stop: 06/12/24 22:54 Last Admin: 05/15/24 08:05 Dose: Not Given Dextrose/Sodium Chloride (D5w And Nss) 1,000 mls @ 80 mls/hr IV .[id number] [facility] Stop: 06/12/24 22:54 Last Infusion: 05/14/24 22:11 Dose: Infused Thiamine HCl 100 mg/ Syringe 10 mls @ 2 mls/min IV QAM [facility] Stop: 06/13/24 08:59 Last Admin: 05/14/24 09:46 Dose: 2 mls/min Folic Acid 1 mg/ Syringe 10 mls @ 5 mls/min IV QAM [facility] Stop: 06/13/24 08:59 Last Admin: 05/14/24 09:46 Dose: 5 mls/min Insulin Aspart (Insulin Aspart Per Unit Charge) 0 units SC ACHS [facility] Stop: 06/13/24 07:29 Last Admin: 05/14/24 20:46 Dose: Not Given Levothyroxine Sodium (Levothyroxine Sodium 100 Mcg Tablet) 100 mcg PO DAILYBB [facility] Stop: 06/13/24 06:29 Last Admin: 05/15/24 05:23 Dose: Not Given Lisinopril (Lisinopril 10 Mg Tab) 10 mg PO DAILY [facility]PR[facility] Stop: 06/14/24 08:59 Last Admin: 05/15/24 08:32 Dose: 10 mg Miscellaneous (Carbohydrates For Hypoglycemia ) 15 - 30 gm PO UD PRN PRN Reason: Hypoglycemia Protocol Stop: 06/12/24 22:54 Multivitamins (Multivitamin Tab) 1 tab PO DAILY SUPRIYA Stop: 06/13/24 08:59 Last Admin: 05/15/24 08:32 Dose: 1 tab Nitroglycerin (Nitroglycerin Sl 0.4 Mg/Tab Tab) 0.4 mg SL Q5M PRN PRN Reason: Chest Pain Stop: 06/12/24 22:54 Quetiapine Fumarate (Quetiapine Fumarate 25 Mg Tablet) 50 mg PO TID@0800,1400,2000 [facility] Stop: 06/12/24 22:54 Last Admin: 05/15/24 08:03 Dose: 50 mg Risperidone (Risperidone 0.25 Mg Tab) 0.25 mg PO DAILY SUPRIYA Stop: 06/13/24 08:59 Last Admin: 05/14/24 09:47 Dose: 0.25 mg Sucralfate (Sucralfate 1 Gm Tab) 1 gm PO DAILY SUPRIYA Stop: 06/13/24 08:59 Last Admin: 05/15/24 08:32 Dose: 1 gm Venlafaxine HCl (Venlafaxine Hcl Xr 37.5 Mg Capxr) 37.5 mg PO DAILY SUPRIYA Stop: 06/13/24 08:59 Last Admin: 05/15/24 08:33 Dose: 37.5 mg Venlafaxine HCl (Venlafaxine Hcl Xr 75 Mg Capxr) 75 mg PO DAILY SUPRIYA Stop: 06/13/24 08:59 Last Admin: 05/15/24 08:32 Dose: 75 mg
[2024-05-16 07:33] VITALS: RESP 16; TEMP 97.7
[2024-05-16 11:04] LABS: BUN Creatinine Ratio 16.9 (10-20); Calcium 9.2 mg/dl (8.6-10.3); Creatinine Clr Calc Pharmacy 96.5 ml/min; Magnesium 1.8 mg/dl (1.7-2.4); Phosphorus 3.2 mg/dl (2.5-4.9); Potassium 3.9 mmol/L (3.5-5.1)
[2024-05-16 11:38] VITALS: O2SAT 94
[2024-05-16] MEDS ORDERED: Nursing to Pharmacy Communication SCH (12:15)
[2024-05-16] MEDS: FOLIC ACID 1 MG TAB PO SCH (12:45)
[2024-05-16] MEDS: THIAMINE HCL 100 MG TAB PO SCH (12:46)
[2024-05-16] MEDS: ACETAMINOPHEN 325 MG TAB PO PRN (12:46)
[2024-05-16] MEDS: carvediloL 12.5 MG TAB PO ONE (12:51)
--- NOTE | 2024-05-16 14:07 | Discharge Summary ---
Date of Service May 16, 2024 Admission HPI Per Admitting Provider 68-year-old male comes from [facility] with past medical significant for dyslipidemia, type 2 diabetes, history of CAD, history of systolic and diastolic CHF EF 45% echo 2018 and EF 50 to 50% on echo done in 2022, history of spina bifida, history of mild intellectual disability, impulsive disorder, generalized disorder, depression, hypothyroidism, GERD, BPH, history of prior hepatitis B infection, CKD,presents with nausea vomiting diarrhea and drowsiness. Patient currently more awake. Can tell his name. Seen somewhat confused. As per staff patient has been more lethargic and sleepy during last 1 day. Multiple episodes of nausea ,vomiting and diarrhea. And blood pressure was running 90s. His glucometer was reading error. He did not eat much for last 1 day. So the staff brought him here. No fevers. No complaint of any pain. Patient denies any headache. Denies chest pain. Denies abdominal pain. Denies shortness of breath. His hemodynamics are okay currently. During recent admissions he was requiring oxygen while sleeping but patient is noncompliant as per staff. But staff says that they are checking his oxygen saturations and they are okay. Past medical history. As mentioned above Past surgical history. Bilateral alveloplasty. Colonoscopy. EGD. EGD with endoscopic ultrasound. Surgical extraction of ruptured tooth. Social history. No smoking. No alcoholism. No drug use. Family history. Mother had diabetes. Heart disorder. Father had heart disorder. Maternal grandfather had stroke. Maternal grandmother had stroke Admission Exam Per Admitting Provider General- Not in acute distress Head- atraumatic Eyes- PERRL. ENT- oropharynx clear Neck- supple, no JVD. Lungs- clear to auscultation no wheezing or crackles Heart- regular rate and rhythm; no murmur, no gallop. Abdomen- normal bowel sounds, soft, nontender, no distension. Extremities- no pretibial edema, no erythema seen Neuro- alert, oriented x 1; PERRL, no facial palsy; no dysarthria;obeys simple commands, moves extremities Principal Diagnosis HESHAM, nausea/vomiting, diarrhea secondary to Norovirus infection Discharge Exam General- Not in acute distress Head- atraumatic Eyes- PERRL. Neck- supple, no JVD. Lungs- clear to auscultation no wheezing or crackles Heart- regular rate and rhythm; no murmur, no gallop. Abdomen- normal bowel sounds, soft, nontender, no distension. Extremities- no pretibial edema, no erythema seen Neuro- alert, oriented x 1; PERRL, no facial palsy; no dysarthria;obeys simple commands, moves extremities Discharge Data Allergies Allergy/AdvReac Type Severity Reaction Status Date / Time terbinafine Allergy Mild RASH ON Verified 07/23/22 08:56 ARM? Consultations 05/13/24 19:20 ED Decision to Admit Stat Ordered Studies 05/13/24 17:21 CT Abdomen and Pelvis [CT abd pelvis wo con] Stat FINDINGS: Lower chest: No consolidation. No pleural effusion or pneumothorax. Calcification is seen in the wall of the ventricular septum and to the apical septal wall, suggesting prior myocardial infarct. Liver: No suspicious liver lesions. Hepatic steatosis. The liver is again enlarged. Gallbladder: Cholecystectomy changes. Spleen: Normal size. Pancreas: No suspicious pancreatic lesions. The pancreatic duct is not dilated. Adrenal glands: No adrenal nodules. Kidneys: No hydronephrosis or obstructing renal stones. Bladder / Pelvic organs: Unremarkable. Bowel: No bowel obstruction. No abnormal bowel wall thickening. The appendix is unremarkable. There is mild fluid throughout the large bowel, compatible with a diarrheal illness. Lymph nodes: No retroperitoneal, mesenteric, or pelvic lymphadenopathy. Peritoneum / Retroperitoneum: No free fluid or air within the abdomen. Vessels: No infrarenal aortic aneurysm. Heavy aortoiliac calcification. Bones and soft tissues: No suspicious lesion in the bones. Degenerative changes of the lumbar spine. IMPRESSION: Mild fluid throughout the large bowel, compatible with a diarrheal illness. No other acute findings. Hepatic steatosis/hepatomegaly again seen. Hospital Course (1) Enteritis due to Norovirus: 68-year-old male comes from [facility] with past medical significant for dyslipidemia, type 2 diabetes, history of CAD, history of systolic and diastolic CHF EF 45% echo 2018 and EF 50 to 50% on echo done in 2022, history of spina bifida, history of mild intellectual disability, impulsive disorder, generalized disorder, depression, hypothyroidism, GERD, BPH, history of prior hepatitis B infection, CKD,presents with nausea vomiting diarrhea and drowsiness. Patient currently more awake. Can tell his name. Seen somewhat confused. As per staff patient has been more lethargic and sleepy during last 1 day. Multiple episodes of nausea ,vomiting and diarrhea. And blood pressure was running 90s. His glucometer was reading error. He did not eat much for last 1 day. So the staff brought him here. No fevers. No complaint of any pain. Patient denies any headache. Denies chest pain. Denies abdominal pain. Denies shortness of breath. His hemodynamics are okay currently. During recent admissions he was requiring oxygen while sleeping but patient is noncompliant as per staff. But staff says that they are checking his oxygen saturations and they are okay. Enteritis due to norovirus Came with nausea vomiting diarrhea and lethargy Positive for norovirus diet advanced and pt is tolerating IV fluids IV antiemetics Supportive care Contact precautions Close monitor HESHAM - resolved Presented with creatinine of 2.3 Baseline creatinine around 1.1 Avoid nephrotoxic agents .holding Lasix and lisinopril Getting fluids Current Cr down to 1 resumed lisinopril Hyponatremia Sodium 131 -> 135 -> 137 Getting fluids Follow repeat labs Hypertension As patient had nausea vomiting and diarrhea and blood pressure soft , held lisinopril and Lasix Cut back Coreg to 12.5 twice daily with holding parameters Close monitor BP now elevated, resumed lisinopril, resumed home coreg dose Diabetes Last admission glimepiride was DC'd as patient was having hypoglycemic episodes Seems currently on Jardiance and glimepiride Will hold home medications Sliding scale Will monitor Right ICA stenosis On aspirin Last admit was started on statin but not on current home med list Nocturnal hypoxemia Noncompliant with oxygen use Will monitor Needs sleep study Chronic systolic and diastolic CHF EF 50 to 50% on echo in 2022 Holding his Lasix currently Getting fluids Monitor for volume overload Hypothyroidism On Synthyroid GERD Omeprazole History of depression Generalized anxiety disorder Compulsive disorder and mild intellectual disability On venlafaxine, divalproex, buspirone, bupropion, Abilify and doxepin And also Seroquel and risperidone Will monitor. If still continues to be drowsy will hold some of his medications 05/13 Pt is awake, not drowsy at all today History of CAD On aspirin and beta-kenyatta History of BPH Monitor for urinary retention History of spina bifida Total Time Total Time Spent Total Time Spent (In Minutes): 40 Discharge Plan Discharge Items Patient Disposition: Home - Self-Care Reason For Visit: N/V, DIARRHEA, HESHAM Discharge Diagnosis: HESHAM, nausea/vomiting, diarrhea secondary to Norovirus infection Activity: Per Instructions section Non-emergency contact: Primary Care Provider Call non-emergency contact if: you have any medication questions and your symptoms worsen Follow-up/Referrals: Tim Swenson DO [Primary Care Provider] - (Date & Time 05/18/2024 10:00 AM Provider: Tim Swenson DO [facility] ) Diet: Regular Addtl Attending Provider Instructions: Follow up with your primary care doctor within 1 week. Make sure to stay well hydrated. Monitor your blood pressure. Recommend you take vit. D supplement. Your vit. D level was found low. Pending Studies at Discharge: No Stand-Alone Forms: My [facility] Smart Balloon, Smoking Cessation Medications and DC Order Prescriptions: New ergocalciferol (vitamin D2) 1,250 mcg (50,000 unit) Capsule 1,250 mcg PO Q7D Qty: 5 0RF Continued sennosides [senna] 8.6 mg tablet 8.6 mg PO BID venlafaxine 37.5 mg capsule,extended release 24hr 37.5 mg PO DAILY venlafaxine 75 mg capsule,extended release 24hr 75 mg PO DAILY sucralfate 1 gram tablet 1 g PO DAILY risperidone 0.25 mg tablet 0.25 mg PO DAILY doxepin 10 mg capsule 10 mg PO HS glimepiride 2 mg tablet 2 mg PO DAILY levothyroxine 100 mcg tablet 100 mcg PO DAILY lisinopril 10 mg tablet 10 mg PO DAILY divalproex 500 mg tablet extended release 24 hr 1,500 mg PO DAILY aspirin 81 mg tablet,chewable 81 mg PO DAILY buspirone 15 mg tablet 15 mg PO BID aripiprazole 15 mg tablet 15 mg PO DAILY bupropion HCl 300 mg tablet extended release 24 hr 300 mg PO DAILY quetiapine 50 mg tablet 50 mg PO UD Rx Instructions: thrice daily at 8am, 2pm and 8pm multivitamin with folic acid [Daily-Ezekiel (with folic acid)] 400 mcg tablet 1 tab PO DAILY Jardiance 25 mg tablet 25 mg PO DAILY carvedilol [Coreg] 25 mg Tablet 25 mg PO BID Rx Instructions: must administer with a meal/food Held furosemide 40 mg tablet 40 mg PO DAILY Hold Instructions: Resume on 05/18/24. start taking after you are seen by primary care doctor- who approves that or in next 2 days Discharge Orders: Discharge Order (Routine); Ordered 05/16/24 Ordered By: Champ Mcadams Admission Data Admit Date/Time: 05/13/24 20:44 Attending Provider: Champ Mcadams Admit Provider: Tha Hernandez Primary Care Provider: Tim Swenson Other Providers: Tha Hernandez Other Interventions: Discharge Summary Assessment (RN) Last Done: 05/16/24 14:30
[2024-05-16 14:33] VITALS: BP 192/93
[2024-05-16 14:55] VITALS: PULSE 80
[2024-05-16] MEDS ORDERED: carvediloL 25 MG TAB PO SCH (17:00)
== END 2024-05-16 16:05 | disposition home or self-care (01) | DRG 392 ==
LOC: ED 14:13 → EDINP 20:44 → 2N 05-14 08:41 → 2W 05-16 06:57

== ENCOUNTER 2024-05-23 11:44 | Inpatient (IN) ==
--- NOTE | 2024-05-23 11:59 | Emergency Department Note ---
Impression & Plan Hypoxia, AMS (altered mental status) ED Provider Note ED Provider Note NAME: GABO RDZ AGE:68 SEX: Male : 1955 ARRIVES VIA: EMS INFORMANT: Patient, EMS ED PROVIDER(s): Radha Lal DO CHIEF COMPLAINT: Shortness of breath, hypoxia HPI: This is a 68-year-old male brought in by EMS after staff at [facility] where the patient resides felt that he appeared more short of breath and was hypoxic. Patient does wear oxygen at night however not typically during the day. EMS increase his oxygen to 6 L/min. Patient denies any pain or feeling short of breath. Patient does have intellectual disability and psychiatric problems that limit his ability to give a detailed history. Patient does have a prior history of aspiration. PAST MEDICAL HISTORY:See Below PAST SURGICAL HISTORY:See Below FAMILY HISTORY:See Below SOCIAL HISTORY:See Below HOME MEDICATIONS:See Below ALLERGIES:See Below VITALS:See Below PHYSICAL EXAMINATION: GENERAL: alert, well appearing, well nourished, no distress, non-toxic EYE EXAM: normal conjunctiva, PERRL and EOM's grossly intact OROPHARYNX: no exudate, no erythema, lips, buccal mucosa, and tongue normal and mucous membranes are moist, edentulous NECK: supple, no nuchal rigidity, no adenopathy, non-tender LUNGS: Clear to auscultation. Normal chest wall mechanics, no w/r/r HEART: no murmurs, S1 normal and S2 normal ABDOMEN: abdomen soft, non-tender, normo-active bowel sounds, no masses, no rebound or guarding. SKIN: no rashes, petechiae, orbruising UPPER EXTREMITIES: upper extremities are grossly normal. FROM, nml pulses b/l. LOWER EXTREMITIES: No pitting edema. FROM, nml pulses b/l. NEURO EXAM: Can answer simple questions however otherwise unable to provide history, cranial nerves II-XII grossly intact, normal speech, no facial droop,nogross weakness of arms, no gross weakness of legs. Gross sensation intact. No ataxia. Vital Signs: reviewed and remarkable Differential Diagnosis: pneumonia, bronchitis, COPD/Asthma exacerbation, pneumothorax, pulmonary embolism, congestive heart failure, acute coronary syndrome, as well as others were considered MEDICAL DECISION MAKING: This is a 68-year-old male presents emerged part via EMS due to concern by staff at [facility] where he resides for increased oxygen requirements and shortness of breath as well as increased fatigue/somnolence compared to his baseline. He was afebrile and hemodynamically stable on arrival. Labs drawn and sent, IV established, EKG and chest x-ray performed at bedside interpreted by me and patient monitored on telemetry. Nasal swab obtained and sent for viral panel additionally. Patient was able to be gradually weaned down off of oxygen from EMS here in had no further hypoxia on room air. Upon arrival of staff member, I discussed traumatic findings also noted on his exam. She was unaware of any recent falls but does state that these are new. Patient sent for additional CT imaging to rule out further traumatic injury. No additional traumatic injury noted, CT of the chest otherwise reassuring additionally. Viral panel negative and other labs reassuring. Patient did not have any increased work of breathing here however staff stated was still not acting appropriately for him and based on their parameters they were uncomfortable with him returning to the facility. Case discussed with the hospitalist team for additional evaluation and management. UA still pending at that time. Consultation(s): 151: Discussed with Tammy Guthrie hospitalist team, for additional evaluation and management. ER Treatment Provided: See below 1240: Discussed with staff member now bedside who routinely cares for him although was not with him over the weekend. She states she did notice bruising on the abdomen as well as a jessika on his head that is new. She states he did require oxygen overnight based on their parameters for oxygen use. She states this morning while still on oxygen he had dropped into the 80s when he attempted to transfer which is unusual for him. She states he also seems more fatigued and tired compared to normal. She states he has been ill several times recently and has recently been hospitalized. She states there are several illnesses going around the facility additionally. Diagnostics Interpreted By Me: -ECG: Normal sinus at 72, normal axis, normal intervals, no acute ST/T wave changes -Cardiac Monitoring: An order was placed for continuous cardiac monitoring. The monitor shows a rate of 70 with normal sinus rhythm. -Laboratory studies: As stated above and show below. -Imaging studies: X-ray Chest: A single view study of the chest was reviewed and showed mild cardiomegaly, no pleural effusion, no focal consolidation, increased interstitial markings bilaterally, no wide mediastinum. Triage Nursing Note Reviewed Prior/Outside Records Reviewed -prior discharge summary reviewed Past Med/Surg History Problem List (Updated 05/23/24 @ 16:45 by Diane Stover PA-C) AMS (altered mental status) (Acute) Hypoxia (Acute) Enteritis due to Norovirus (Acute) Acute dehydration (Acute) HESHAM (acute kidney injury) (Acute) Nausea, vomiting, and diarrhea (Acute) Internal carotid artery stenosis (Acute) Slurred speech (Acute) Hypoglycemia (Acute) Nocturnal hypoxemia Acute dyspnea (Acute) Severe sepsis Acute hyponatremia (Acute) Elevated lactic acid level (Acute) Leukocytosis (Acute) Dehydration (Acute) HESHAM (acute kidney injury) (Acute) Hypotension (Acute) Elevated troponin (Acute) Sepsis (Acute) Back pain Closed L2 vertebral fracture (Acute) Pulmonary edema (Acute) Pneumonitis (Acute) Lactic acidemia (Acute) Contrast dye induced nephropathy Acute renal insufficiency Elevated troponin Chronic heart failure with reduced ejection fraction and diastolic dysfunction Hypertension (Acute) Intellectual disability (Acute) Congestive heart failure (CHF) Aspiration pneumonia Psychiatric disorder Intermittent explosive disorder Anxiety disorder, unspecified Depression Medical History (Updated 05/23/24 @ 16:45 by Diane Stover PA-C) Vocal cord paralysis, unilateral complete GERD (gastroesophageal reflux disease) Myocardial infarction Remote hx per records > medically managed Coronary artery disease Thrombocytopenia Chronic thrombocytopenia, baseline platelets low 100s per chart review Obesity Cerebral palsy Moderate intellectual disabilities sister/POA -ASHLEY IRENE [phone]-STRAWBERRY CRUZ 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 SIGNS CONSENTS Anemia MRSA (methicillin resistant Staphylococcus aureus) carrier Dysphagia Keratoconus Cataract Arthritis Spina bifida Hypothyroidism Diabetes mellitus, type 2 Chronic ischemic heart disease Hyperlipidemia Hypertension Intermittent explosive disorder Impulse control disorder Severe anxiety Combative behavior Fall Fall risk Surgical History (Updated 05/23/24 @ 16:30 by Diane Stover PA-C) History of laparoscopic cholecystectomy Laparoscopic cholecystectomy [address] Wolff H/O tooth extraction History of esophagogastroduodenoscopy (EGD) History of colonoscopy EGD/colonoscopy (12/07/19): MAC sedation at [facility] History of bronchoscopy Flexible bronchoscopy with BAL (02/04/18): Grade view 1, Elective glidescope #4, ETT 8.5 at [facility] (done for aspiration PNA) Family History Other No significant family history Social History Smoking Status: Never smoker Second Hand Exposure: No; Do You Dip or Chew Tobacco: No; Hx Alcohol Use: No Hx Substance Use: No Preferred Language: Guamanian Communication Ability: Effective Communication Ability Comment: PT IS INTELLECTUALLY IMPAIRED 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 Penicillins Allergy Unknown Unknown Unverified 05/23/24 15:12 Home Meds Home Medications Medication Instructions Recorded Confirmed aripiprazole 15 mg tablet 15 mg PO DAILY 05/13/24 05/23/24 aspirin 81 mg chewable tablet 81 mg PO DAILY 05/13/24 05/23/24 bupropion HCl 300 mg 24 hr tablet, 300 mg PO DAILY 05/13/24 05/23/24 extended release buspirone 15 mg tablet 15 mg PO BID 05/13/24 05/23/24 carvedilol 25 mg tablet (Coreg) 25 mg PO BID 05/13/24 05/23/24 divalproex 500 mg tablet,extended 1,500 mg PO DAILY 05/13/24 05/23/24 release 24 hr doxepin 10 mg capsule 10 mg PO HS 05/13/24 05/23/24 empagliflozin 25 mg tablet 25 mg PO DAILY 05/13/24 05/23/24 (Jardiance) furosemide 40 mg tablet 40 mg PO DAILY 05/13/24 05/23/24 levothyroxine 100 mcg tablet 100 mcg PO DAILY 05/13/24 05/23/24 lisinopril 10 mg tablet 10 mg PO DAILY 05/13/24 05/23/24 multivitamin with folic acid 400 1 tab PO DAILY 05/13/24 05/23/24 mcg tablet (Daily-Ezekiel (with folic acid)) quetiapine 50 mg tablet 50 mg PO TID 05/13/24 05/23/24 risperidone 0.25 mg tablet 0.25 mg PO DAILY 05/13/24 05/23/24 sennosides 8.6 mg tablet (senna) 8.6 mg PO BID 05/13/24 05/23/24 sucralfate 1 gram tablet 1 g PO DAILY 05/13/24 05/23/24 venlafaxine 37.5 mg 37.5 mg PO DAILY 05/13/24 05/23/24 capsule,extended release 24 hr venlafaxine 75 mg capsule,extended 75 mg PO DAILY 05/13/24 05/23/24 release 24 hr atorvastatin 20 mg tablet 20 mg PO DAILY 05/23/24 05/23/24 omeprazole 40 mg capsule,delayed 40 mg PO DAILY 05/23/24 05/23/24 release Results & Data (ED) Vital Signs Vital Signs - 24 hr 05/23/24 11:57 05/23/24 12:13 05/23/24 12:15 Temperature 37 C Temperature Source Oral Pulse Rate 72 73 71 Pulse Rate [Left Finger] Pulse Rate from SpO2 Sensor 71 Respiratory Rate 28 H 26 H Respiratory Effort / Characteristics Non-Labored Respiratory Depth Normal Respiratory Pattern Regular Blood Pressure 111/72 Blood Pressure [Left Arm] Blood Pressure Mean 85 Blood Pressure Mean [Left Arm] Pulse Oximetry 93 91 Oxygen Delivery Method Room Air Sepsis Recent Fever Within 48 Hours No Sepsis New/Unexplained Change in Mental Status N/A Sepsis Action Taken by Nursing No Action Required 05/23/24 12:30 05/23/24 15:36 Temperature Temperature Source Pulse Rate 72 Pulse Rate [Left Finger] 72 Pulse Rate from SpO2 Sensor 70 Respiratory Rate 15 26 H Respiratory Effort / Characteristics Respiratory Depth Respiratory Pattern Blood Pressure Blood Pressure [Left Arm] 115/72 Blood Pressure Mean Blood Pressure Mean [Left Arm] 86 Pulse Oximetry 92 95 Oxygen Delivery Method Room Air Sepsis Recent Fever Within 48 Hours Sepsis New/Unexplained Change in Mental Status Sepsis Action Taken by Nursing Laboratory Data 05/24/24 05:54 05/24/24 05:54 Lab Results 05/23/24 05/23/24 05/23/24 Range/Units 12:12 12:13 14:37 WBC 14.88 H (4.8-10.8) K/ul RBC 3.91 L (4.70-6.10) M/uL Hgb 11.6 L (14.0-18.0) g/dl Hct 34.8 L (42.0-52.0) % MCV 89.0 (80.0-100.0) fL MCH 29.7 (25.0-34.0) pg MCHC 33.3 (32.0-36.0) g/dL RDW Std Deviation 53.4 H (36.4-46.3) fL RDW Coeff of Josiah 16.2 H (11.5-14.5) % Plt Count 163 (130-400) K/uL MPV 10.5 (9.4-12.4) fL Immature Gran % (Auto) 0.8 % Neut % (Auto) 71.7 % Lymph % (Auto) 16.5 % Cotton % (Auto) 10.8 % Eos % (Auto) 0.1 % Baso % (Auto) 0.1 % Neut # (Auto) 10.67 H (1.40-6.50) K/uL Lymph # (Auto) 2.45 (1.20-3.40) K/uL Cotton # (Auto) 1.60 H (0.11-0.59) K/uL Eos # (Auto) 0.02 (0.00-0.50) K/uL Baso # (Auto) 0.02 (0.00-0.20) K/uL Immature Gran # (Auto) 0.12 (0.01-0.20) K/uL VBG pH 7.41 (7.36-7.41) VBG pCO2 46 (38-50) mmHg VBG pO2 21 mmHg VBG HCO3 29 mmol/L VBG O2 Saturation < 60.0 % VBG Base Excess 3.8 mEq/L Sodium 134 L (136-145) mmol/L Potassium 4.0 (3.5-5.1) mmol/L Chloride 101 (98-107) mmol/L Carbon Dioxide 25 (21-32) mmol/L Anion Gap 8 (3-11) BUN 12 (6-23) mg/dl Creatinine 1.49 H (0.6-1.4) mg/dl Est Cr Clr Drug Dosing 58.9 ml/min eGFR 51.44 BUN/Creatinine Ratio 8.1 L (10-20) Glucose 142 H (70-99(Fasting)) mg/dl Calcium 8.9 (8.6-10.3) mg/dl Total Bilirubin 0.5 (0.2-1.0) mg/dl AST 18 (13-39) U/L ALT 13 (7-52) U/L Alkaline Phosphatase 63 (34-104) U/L Troponin I High Sens 8.6 (0-20) pg/ml B-Natriuretic Peptide 146 H (0-100) pg/ml Total Protein 8.4 H (6.0-8.3) gm/dl Albumin 3.6 (3.4-5.0) gm/dl Globulin 4.8 H (2.5-4.0) gm/dl Albumin/Globulin Ratio 0.8 L (0.9-2) Procalcitonin 0.11 (0-0.5) ng/ml Urine Color Urine Appearance (Clear) Urine pH (4.5-7.5) Ur Specific [place] (1.000-1.030) Urine Protein (Negative) Urine Glucose (UA) (Negative) Urine Ketones (Negative) Urine Blood (Negative) Urine Nitrite (Negative) Urine Bilirubin (Negative) Urine Urobilinogen (Negative) Ur Leukocyte Esterase (Negative) Urine WBC (Auto) (0-5) /hpf Urine RBC (Auto) (0-2) /hpf U Hyaline Cast (Auto) (0-2) /lpf U Epithel Cells (Auto) (0-2) /hpf Urine Bacteria (Auto) (None Seen) Adenovirus (PCR) Not Detected (NotDetected) B. pertussis DNA (PCR) Not Detected (NotDetected) B.parapertussis DNA PCR Not Detected (NotDetected) C. pneumoniae DNA (PCR) Not Detected (NotDetected) Coronavirus OC43 (PCR) Not Detected (NotDetected) Coronavirus HKU1 (PCR) Not Detected (NotDetected) Coronavirus 229E (PCR) Not Detected (NotDetected) SARS-CoV-2 (PCR) Not Detected (NotDetected) Coronavirus NL63 (PCR) Not Detected (NotDetected) Human Metapneumovir PCR Not Detected (NotDetected) Influenza Type A (PCR) Not Detected (NotDetected) Influenza Type B (PCR) Not Detected (NotDetected) M. pneumoniae (PCR) Not Detected (NotDetected) Parainfluenza 1 (PCR) Not Detected (NotDetected) Parainfluenza 2 (PCR) Not Detected (NotDetected) Parainfluenza 3 (PCR) Not Detected (NotDetected) Parainfluenza 4 (PCR) Not Detected (NotDetected) RSV (PCR) Not Detected (NotDetected) Entero/Rhino (PCR) Not Detected (NotDetected) 05/23/24 Range/Units 15:17 WBC (4.8-10.8) K/ul RBC (4.70-6.10) M/uL Hgb (14.0-18.0) g/dl Hct (42.0-52.0) % MCV (80.0-100.0) fL MCH (25.0-34.0) pg MCHC (32.0-36.0) g/dL RDW Std Deviation (36.4-46.3) fL RDW Coeff of Josiah (11.5-14.5) % Plt Count (130-400) K/uL MPV (9.4-12.4) fL Immature Gran % (Auto) % Neut % (Auto) % Lymph % (Auto) % Cotton % (Auto) % Eos % (Auto) % Baso % (Auto) % Neut # (Auto) (1.40-6.50) K/uL Lymph # (Auto) (1.20-3.40) K/uL Cotton # (Auto) (0.11-0.59) K/uL Eos # (Auto) (0.00-0.50) K/uL Baso # (Auto) (0.00-0.20) K/uL Immature Gran # (Auto) (0.01-0.20) K/uL VBG pH (7.36-7.41) VBG pCO2 (38-50) mmHg VBG pO2 mmHg VBG HCO3 mmol/L VBG O2 Saturation % VBG Base Excess mEq/L Sodium (136-145) mmol/L Potassium (3.5-5.1) mmol/L Chloride (98-107) mmol/L Carbon Dioxide (21-32) mmol/L Anion Gap (3-11) BUN (6-23) mg/dl Creatinine (0.6-1.4) mg/dl Est Cr Clr Drug Dosing ml/min eGFR BUN/Creatinine Ratio (10-20) Glucose (70-99(Fasting)) mg/dl Calcium (8.6-10.3) mg/dl Total Bilirubin (0.2-1.0) mg/dl AST (13-39) U/L ALT (7-52) U/L Alkaline Phosphatase (34-104) U/L Troponin I High Sens (0-20) pg/ml B-Natriuretic Peptide (0-100) pg/ml Total Protein (6.0-8.3) gm/dl Albumin (3.4-5.0) gm/dl Globulin (2.5-4.0) gm/dl Albumin/Globulin Ratio (0.9-2) Procalcitonin (0-0.5) ng/ml Urine Color Yellow Urine Appearance Clear (Clear) Urine pH 5.5 (4.5-7.5) Ur Specific [place] 1.037 H (1.000-1.030) Urine Protein Negative (Negative) Urine Glucose (UA) 3+ H (Negative) Urine Ketones Negative (Negative) Urine Blood 1+ H (Negative) Urine Nitrite Negative (Negative) Urine Bilirubin Negative (Negative) Urine Urobilinogen Negative (Negative) Ur Leukocyte Esterase 1+ H (Negative) Urine WBC (Auto) 11-20 H (0-5) /hpf Urine RBC (Auto) 0-2 (0-2) /hpf U Hyaline Cast (Auto) 0-2 (0-2) /lpf U Epithel Cells (Auto) 0-2 (0-2) /hpf Urine Bacteria (Auto) None Seen (None Seen) Adenovirus (PCR) (NotDetected) B. pertussis DNA (PCR) (NotDetected) B.parapertussis DNA PCR (NotDetected) C. pneumoniae DNA (PCR) (NotDetected) Coronavirus OC43 (PCR) (NotDetected) Coronavirus HKU1 (PCR) (NotDetected) Coronavirus 229E (PCR) (NotDetected) SARS-CoV-2 (PCR) (NotDetected) Coronavirus NL63 (PCR) (NotDetected) Human Metapneumovir PCR (NotDetected) Influenza Type A (PCR) (NotDetected) Influenza Type B (PCR) (NotDetected) M. pneumoniae (PCR) (NotDetected) Parainfluenza 1 (PCR) (NotDetected) Parainfluenza 2 (PCR) (NotDetected) Parainfluenza 3 (PCR) (NotDetected) Parainfluenza 4 (PCR) (NotDetected) RSV (PCR) (NotDetected) Entero/Rhino (PCR) (NotDetected) Administered Medications Aripiprazole (Aripiprazole 15 Mg Tab) 15 mg PO DAILY SUPRIYA Stop: 06/23/24 08:59 Last Admin: 05/24/24 08:43 Dose: 15 mg Documented By: RRR Aspirin (Aspirin 81 Mg Ectab) 81 mg PO DAILY SUPRIYA Stop: 06/23/24 08:59 Last Admin: 05/24/24 08:43 Dose: 81 mg Documented By: RRR Atorvastatin Calcium (Atorvastatin 20 Mg Tab) 20 mg PO DAILY SUPRIYA Stop: 06/23/24 08:59 Last Admin: 05/24/24 08:43 Dose: 20 mg Documented By: ALEXIS Bupropion HCl (Bupropion Xl 300 Mg Tabcr) 300 mg PO DAILY SUPRIYA Stop: 06/23/24 08:59 Last Admin: 05/24/24 08:43 Dose: 300 mg Documented By: RRR Buspirone HCl (Buspirone 15 Mg Tab) 15 mg PO BID SUPRIYA Stop: 06/22/24 20:59 Last Admin: 05/24/24 21:17 Dose: 15 mg Documented By: Admin: 05/24/24 08:43 Dose: 15 mg Documented By: Admin: 05/23/24 21:47 Dose: 15 mg Documented By: ISABELA Carvedilol (Carvedilol 25 Mg Tab) 25 mg PO BID SUPRIYA Stop: 06/22/24 20:59 Last Admin: 05/24/24 21:16 Dose: 25 mg Documented By: Admin: 05/24/24 08:43 Dose: 25 mg Documented By: Admin: 05/23/24 21:47 Dose: 25 mg Documented By: ISABELA Divalproex Sodium (Divalproex Extended Release 500 Mg Tab) 1,500 mg PO DAILY SUPRIYA Stop: 06/23/24 08:59 Last Admin: 05/24/24 08:43 Dose: 1,500 mg Documented By: RRShashank Doxepin HCl (Doxepin Hcl 10 Mg Capsule) 10 mg PO HS SUPRIYA Stop: 06/22/24 20:59 Last Admin: 05/24/24 21:16 Dose: 10 mg Documented By: Admin: 05/23/24 21:45 Dose: 10 mg Documented By: ISABELA Heparin Sodium (Porcine) (Heparin Sod 5,000 Unit/0.5 Ml Vial) 5,000 units SQ Q8 SUPRIYA Stop: 06/22/24 21:59 Last Admin: 05/24/24 21:14 Dose: 5,000 units Documented By: Admin: 05/24/24 14:52 Dose: 5,000 units Documented By: Admin: 05/24/24 06:04 Dose: 5,000 units Documented By: Admin: 05/23/24 21:48 Dose: 5,000 units Documented By: ISABELA Ceftriaxone Sodium (Rocephin) 2,000 mg in 50 mls @ 100 mls/hr IV Q24H SUPRIYA Stop: 05/28/24 16:14 Last Infusion: 05/24/24 18:30 Dose: Infused Documented By: Admin: 05/24/24 17:09 Dose: 100 mls/hr Documented By: Infusion: 05/23/24 17:20 Dose: Infused Documented By: Admin: 05/23/24 16:42 Dose: 100 mls/hr Documented By: JOY Insulin Aspart (Insulin Aspart Per Unit Charge) 0 units SC ACHS SUPRIYA Stop: 06/22/24 18:48 Last Admin: 05/24/24 21:08 Dose: Not Given Documented By: Admin: 05/24/24 17:44 Dose: 6 units Documented By: JERMAINE Co-signed By: ALEXIS Admin: 05/24/24 13:11 Dose: 6 units Documented By: ALEXIS Co-signed By: NEHA Admin: 05/24/24 08:43 Dose: 5 units Documented By: ALEXIS Co-signed By: CRISTIN Admin: 05/23/24 20:55 Dose: Not Given Documented By: Admin: 05/23/24 20:55 Dose: Not Given Documented By: ISABELA Levothyroxine Sodium (Levothyroxine Sodium 100 Mcg Tablet) 100 mcg PO DAILYBB [facility] Stop: 06/23/24 06:29 Last Admin: 05/24/24 06:04 Dose: 100 mcg Documented By: ISABELA Pantoprazole Sodium (Pantoprazole 40 Mg Tab) 40 mg PO DAILY SUPRIYA Stop: 06/23/24 08:59 Last Admin: 05/24/24 08:43 Dose: 40 mg Documented By: SHEILAR Quetiapine Fumarate (Quetiapine Fumarate 25 Mg Tablet) 50 mg PO TID@0800,1400,2000 SUPRIYA Stop: 06/22/24 19:59 Last Admin: 05/24/24 21:16 Dose: 50 mg Documented By: Admin: 05/24/24 14:53 Dose: 50 mg Documented By: Admin: 05/24/24 08:43 Dose: 50 mg Documented By: Admin: 05/23/24 21:46 Dose: 50 mg Documented By: ISABELA Risperidone (Risperidone 0.25 Mg Tab) 0.25 mg PO DAILY SUPRIYA Stop: 06/23/24 08:59 Last Admin: 05/24/24 08:43 Dose: 0.25 mg Documented By: ALEXIS Sennosides (Senna 8.6 Mg Tab) 8.6 mg PO BID SUPRIYA Stop: 06/22/24 20:59 Last Admin: 05/24/24 21:18 Dose: 8.6 mg Documented By: Admin: 05/24/24 08:43 Dose: 8.6 mg Documented By: Admin: 05/23/24 21:48 Dose: 8.6 mg Documented By: ISABELA Sucralfate (Sucralfate 1 Gm Tab) 1 gm PO DAILY SUPRIYA Stop: 06/23/24 08:59 Last Admin: 05/24/24 08:43 Dose: 1 gm Documented By: ALEXIS Venlafaxine HCl (Venlafaxine Hcl Xr 75 Mg Capxr) 75 mg PO DAILY SUPRIYA Stop: 06/23/24 08:59 Last Admin: 05/24/24 08:44 Dose: 75 mg Documented By: ALEXIS Venlafaxine HCl (Venlafaxine Hcl Xr 37.5 Mg Capxr) 37.5 mg PO DAILY SUPRIYA Stop: 06/23/24 08:59 Last Admin: 05/24/24 08:44 Dose: 37.5 mg Documented By: ALEXIS Discontinued Medications Sodium Chloride (Nss) 1,000 mls @ 80 mls/hr IV .[id number] SUPRIYA Stop: 05/24/24 15:29 Last Infusion: 05/24/24 07:33 Dose: Infused Documented By: Admin: 05/23/24 18:52 Dose: 80 mls/hr Documented By: Infusion: 05/23/24 18:52 Dose: Infused Documented By: Admin: 05/23/24 16:42 Dose: 80 mls/hr Documented By: JOY Ioversol (Optiray 320 100ml) 93 ml IV ONCE ONE Stop: 05/23/24 13:30 Last Admin: 05/23/24 13:29 Dose: 93 ml Documented By: [facility] Imaging Data Radiologist's Impression: Chest X-Ray 05/23/24 11:54 XR chest 1V portable CLINICAL HISTORY: Hypoxia. COMPARISON STUDY: Chest CT April 10, 2024. Chest radiograph April 19, 2024. FINDINGS: There is no pneumothorax. Blunting of the left costophrenic angle is likely related to epicardial fat pad. Moderate cardiomegaly is again noted. There is pulmonary vascular congestion with suspected mild pulmonary edema. No definite consolidation to suggest pneumonia. Apparent left basilar opacity is likely artifactual. There is an old left clavicular fracture. IMPRESSION: Cardiomegaly. Pulmonary vascular congestion with suspected mild pulmonary edema. ACT 112: Negative or not required by law. Electronically signed by: Martínez Anand M.D. 05/23/2024 1:20 PM Abdomen/Pelvis CT 05/23/24 12:44 CT OF THE ABDOMEN AND PELVIS WITH CONTRAST CLINICAL HISTORY: trauma COMPARISON STUDY: CT of the abdomen and pelvis May 13, 2024. TECHNIQUE: Following IV administration of 93 mL of Optiray, axial images of the abdomen and pelvis were obtained from the lung bases to the proximal femurs. Images were reviewed in the axial, sagittal, and coronal planes. IV contrast was administered without complication. Automated exposure control was utilized for the study. A dose lowering technique was utilized adhering to the principles of ALARA. CT DOSE: 5492.37 mGy.cm FINDINGS: No hemoperitoneum or pneumoperitoneum is present. There is no evidence for traumatic injury to the liver, spleen, adrenal glands, kidneys or pancreas. No biliary or pancreatic ductal dilatation. There is no hydronephrosis. 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 There are several prominent bilateral iliac chain lymph nodes. A right common iliac lymph node on image 260 measures 1.7 x 1.3 cm. A left external iliac lymph node on image 326 measures 2.2 x 1.3 cm. The prostate is slightly enlarged. Bladder wall thickening with mild adjacent stranding is noted. No acute fractures within the lumbar spine, pelvis or hips are identified. IMPRESSION: 1. No acute traumatic findings within the abdomen or pelvis. 2. Mild bladder wall thickening with adjacent stranding. This is nonspecific and could be correlated with urinalysis to exclude cystitis. 3. Several prominent bilateral iliac chain lymph nodes. These may be reactive however are indeterminate and a CT of the abdomen and pelvis in 3 months is recommended for reassessment. ACT 112: Negative or not required by law. Electronically signed by: Martínez Anand M.D. 05/23/2024 2:[address] 05/23/24 12:44 CT OF THE CERVICAL SPINE WITHOUT CONTRAST CLINICAL HISTORY: trauma COMPARISON STUDY: CT of the neck April 19, 2024. Cervical spine CT March 27, 2023. TECHNIQUE: Helical axial images of the cervical spine were obtained without IV contrast. Sagittal and coronal reconstructions were viewed. Automated exposure control was utilized for the study. A dose lowering technique was utilized adhering to the principles of ALARA. FINDINGS: Alignment of the cervical spine is anatomic. Vertebral body heights are maintained. No acute cervical spine fracture or subluxation is present. There is no prevertebral edema. Facet joints are intact. Moderate multilevel disc space narrowing, endplate osteophytosis and facet arthrosis is present. IMPRESSION: No acute cervical spine fracture or subluxation. ACT 112: Negative or not required by law. Electronically signed by: Martínez Anand M.D. 05/23/2024 2:[address] 05/23/24 12:[address] WITH CONTRAST HISTORY: Acute chest trauma status post fall trauma TECHNIQUE: Multiaxial CT images of the chest were performed following the IV administration of 93 cc of Optiray. A dose lowering technique was utilized adhering to the principles of ALARA. COMPARISON: CT abdomen and pelvis of same day, CT chest 04/10/2024, CT cervical spine 03/27/2023 FINDINGS: Unremarkable thyroid. No lymphadenopathy. Mild cardiomegaly with extensive coronary artery calcifications. No pericardial effusion. No thoracic aortic aneurysm. Unremarkable pulmonary artery. No pneumothorax, pleural effusion or pulmonary edema. Bibasilar bronchial wall thickening with areas of mucous plugging. Groundglass densities with linear subpleural consolidative opacities suggestive of atelectasis/scarring. No suspicious pulmonary nodules or masses. No acute upper abdominal abnormality. Gynecomastia. Degenerative changes of the shoulders and spine. There are several chronic appearing nondisplaced bilateral anterior rib fractures. 1.3 cm lucent focus involves the T2 vertebral body which is unchanged dating back to the 2022 study. No acute displaced fracture identified. Upper thoracic levoscoliosis. IMPRESSION: 1. Mild bibasilar mucous plugging with bibasilar atelectasis. 2. No acute fracture or pneumothorax. 3. Chronic bilateral anterior rib fractures. 4. Cardiomegaly with extensive coronary artery calcifications. ACT 112: Negative or not required by law. Electronically signed by: Gaston Maritnez M.D. 05/23/2024 1:[address] 05/23/24 12:44 CT OF THE HEAD WITHOUT CONTRAST CLINICAL HISTORY: trauma COMPARISON STUDY: Head CT April 19, 2024. TECHNIQUE: Helical axial images of the head were obtained without IV contrast. Automated exposure control was utilized for the study. A dose lowering technique was utilized adhering to the principles of ALARA. FINDINGS: This exam is mildly compromised by motion artifact. No acute intracranial hemorrhage, midline shift or mass effect is present. Ventricular system is stable. Basal cisterns are patent. There are no extra axial collections. There are no findings to suggest acute dural sinus thrombosis or acute territorial infarct. No calvarial fractures are identified. IMPRESSION: 1. No acute intracranial findings. Exam mildly compromised by motion artifact. 2. No calvarial fractures identified. ACT 112: Negative or not required by law. Electronically signed by: Martínez Anand M.D. 05/23/2024 1:51 PM Discharge Plan Visit Data Chief Complaint: Illness Stated Complaint: HYPOXIA ED Provider: Radha Lal Discharge Problem: Hypoxia, AMS (altered mental status) Patient Disposition: Admitted As Inpatient Discharge Instructions Interventions: ED Discharge Assessment Last Done: 05/23/24 18:39 Discharge Problem: AMS (altered mental status) Qualifiers: Altered mental status type: unspecified Qualified Code(s): R41.82 - Altered mental status, unspecified
[2024-05-23 12:32] LABS: Basophils # (auto) 0.02 K/uL (0.00-0.20); Basophils % (auto) 0.1 %; Eosinophils # (auto) 0.02 K/uL (0.00-0.50); Eosinophils % (auto) 0.1 %; Hematocrit (blood only) 34.8 % (42.0-52.0); Hemoglobin 11.6 g/dl (14.0-18.0); Immature Granulocytes # (auto) 0.12 K/uL (0.01-0.20); Immature Granulocytes % (auto) 0.8 %; Lymphocytes # (auto) 2.45 K/uL (1.20-3.40); Lymphocytes % (auto) 16.5 %; Mean Corpuscular Hemoglobin 29.7 pg (25.0-34.0); Mean Corpuscular Hgb Conc 33.3 g/dL (32.0-36.0); Mean Platelet Volume 10.5 fL (9.4-12.4); Monocytes % (auto) 10.8 %; Neutrophils # (auto) 10.67 K/uL (1.40-6.50); Neutrophils % (auto) 71.7 %; Platelet Count 163 K/uL (130-400); RDW Coefficient of Variation 16.2 % (11.5-14.5); RDW Standard Deviation 53.4 fL (36.4-46.3); Red Blood Count 3.91 M/uL (4.70-6.10); White Blood Count 14.88 K/ul (4.8-10.8)
[2024-05-23 12:53] LABS: Albumin Globulin Ratio 0.8 (0.9-2); Albumin Level 3.6 gm/dl (3.4-5.0); BUN Creatinine Ratio 8.1 (10-20); Bilirubin,Total 0.5 mg/dl (0.2-1.0); Calcium 8.9 mg/dl (8.6-10.3); Creatinine Clr Calc Pharmacy 58.9 ml/min; Globulin 4.8 gm/dl (2.5-4.0); Total Protein 8.4 gm/dl (6.0-8.3)
[2024-05-23 13:00] LABS: Troponin I High Sensitivity 8.6 pg/ml (0-20)
--- NOTE | 2024-05-23 13:22 | XRay Report ---
XR chest 1V portable CLINICAL HISTORY: Hypoxia. COMPARISON STUDY: Chest CT April 10, 2024. Chest radiograph April 19, 2024. FINDINGS: There is no pneumothorax. Blunting of the left costophrenic angle is likely related to epic ardial fat pad. Moderate cardiomegaly is again noted. There is pulmonary vascular congestion with luis pected mild pulmonary edema. No definite consolidation to suggest pneumonia. Apparent left basilar op acity is likely artifactual. There is an old left clavicular fracture. IMPRESSION: Cardiomegaly. Pulmonary vascular congestion with suspected mild pulmonary edema. ACT 112: Negative or not required by law. Electronically signed by: Martínez Anand M.D. 05/23/2024 1:20 PM
[2024-05-23] MEDS: OPTIRAY 320 100ml IV ONE (13:29)
[2024-05-23 13:46] LABS: Adenovirus PCR Not Detected (NotDetected); Bordetella parapertussis PCR Not Detected (NotDetected); Bordetella pertussis PCR Not Detected (NotDetected); Chlamydia pneumoniae PCR Not Detected (NotDetected); Coronavirus 229E PCR Not Detected (NotDetected); Coronavirus CoV-2 (COVID19)PCR Not Detected (NotDetected); Coronavirus HKU1 PCR Not Detected (NotDetected); Coronavirus NL63 PCR Not Detected (NotDetected); Coronavirus OC43PCR Not Detected (NotDetected); Human Metapneumovirus PCR Not Detected (NotDetected); Influenza A PCR Not Detected (NotDetected); Influenza B PCR Not Detected (NotDetected); Mycoplasma pneumoniae PCR Not Detected (NotDetected); Parainfluenza Virus 1 PCR Not Detected (NotDetected); Parainfluenza Virus 2 PCR Not Detected (NotDetected); Parainfluenza Virus 3 PCR Not Detected (NotDetected); Parainfluenza Virus 4 PCR Not Detected (NotDetected); Respiratory Syncytial VirusPCR Not Detected (NotDetected); Rhinovirus/Enterovirus PCR Not Detected (NotDetected)
--- NOTE | 2024-05-23 13:52 | CT Scan Report ---
CT OF THE HEAD WITHOUT CONTRAST CLINICAL HISTORY: trauma COMPARISON STUDY: Head CT April 19, 2024. TECHNIQUE: Helical axial images of the head were obtained without IV contrast. Automated exposure con trol was utilized for the study. A dose lowering technique was utilized adhering to the principles o f ALARA. FINDINGS: This exam is mildly compromised by motion artifact. No acute intracranial hemorrhage, midli ne shift or mass effect is present. Ventricular system is stable. Basal cisterns are patent. There ar e no extra axial collections. There are no findings to suggest acute dural sinus thrombosis or acute territorial infarct. No calvarial fractures are identified. IMPRESSION: 1. No acute intracranial findings. Exam mildly compromised by motion artifact. 2. No calvarial fractures identified. ACT 112: Negative or not required by law. Electronically signed by: Martínez Anand M.D. 05/23/2024 1:51 PM
--- NOTE | 2024-05-23 14:00 | CT Scan Report ---
CHEST CT WITH CONTRAST HISTORY: Acute chest trauma status post fall trauma TECHNIQUE: Multiaxial CT images of the chest were performed following the IV administration of 93 cc of Optiray. A dose lowering technique was utilized adhering to the principles of ALARA. COMPARISON: CT abdomen and pelvis of same day, CT chest 04/10/2024, CT cervical spine 03/27/2023 FIN DINGS: Unremarkable thyroid. No lymphadenopathy. Mild cardiomegaly with extensive coronary artery celia cifications. No pericardial effusion. No thoracic aortic aneurysm. Unremarkable pulmonary artery. No pneumothorax, pleural effusion or pulmonary edema. Bibasilar bronchial wall thickening with areas of mucous plugging. Groundglass densities with linear subpleural consolidative opacities suggestive of a telectasis/scarring. No suspicious pulmonary nodules or masses. No acute upper abdominal abnormality. Gynecomastia. Degenerative changes of the shoulders and spine. There are several chronic appearing nondisplaced bilateral anterior rib fractures. 1.3 cm lucent focu s involves the T2 vertebral body which is unchanged dating back to the 2022 study. No acute displaced fracture identified. Upper thoracic levoscoliosis. IMPRESSION: 1. Mild bibasilar mucous plugging with bibasilar atelectasis. 2. No acute fracture or pneumothorax. 3. Chronic bilateral anterior rib fractures. 4. Cardiomegaly with extensive coronary artery calcifications. ACT 112: Negative or not required by law. Electronically signed by: Gaston Martinez M.D. 05/23/2024 1:58 PM
--- NOTE | 2024-05-23 14:04 | CT Scan Report ---
CT OF THE CERVICAL SPINE WITHOUT CONTRAST CLINICAL HISTORY: trauma COMPARISON STUDY: CT of the neck April 19, 2024. Cervical spine CT March 27, 2023. TECHNIQUE: Helical axial images of the cervical spine were obtained without IV contrast. Sagittal a nd coronal reconstructions were viewed. Automated exposure control was utilized for the study. A do se lowering technique was utilized adhering to the principles of ALARA. FINDINGS: Alignment of the cervical spine is anatomic. Vertebral body heights are maintained. No acut e cervical spine fracture or subluxation is present. There is no prevertebral edema. Facet joints are intact. Moderate multilevel disc space narrowing, endplate osteophytosis and facet arthrosis is pre sent. IMPRESSION: No acute cervical spine fracture or subluxation. ACT 112: Negative or not required by law. Electronically signed by: Martínez Anand M.D. 05/23/2024 2:02 PM
--- NOTE | 2024-05-23 14:22 | CT Scan Report ---
CT OF THE ABDOMEN AND PELVIS WITH CONTRAST CLINICAL HISTORY: trauma COMPARISON STUDY: CT of the abdomen and pelvis May 13, 2024. TECHNIQUE: Following IV administration of 93 mL of Optiray, axial images of the abdomen and pelvis we re obtained from the lung bases to the proximal femurs. Images were reviewed in the axial, sagittal, and coronal planes. IV contrast was administered without complication. Automated exposure control wa s utilized for the study. A dose lowering technique was utilized adhering to the principles of ALARA . CT DOSE: 5492.37 mGy.cm FINDINGS: No hemoperitoneum or pneumoperitoneum is present. There is no evidence for traumatic injury to the liver, spleen, adrenal glands, kidneys or pancreas. No biliary or pancreatic ductal dilatatio n. There is no hydronephrosis. 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 There are several prominent bila teral iliac chain lymph nodes. A right common iliac lymph node on image 260 measures 1.7 x 1.3 cm. A left external iliac lymph node on image 326 measures 2.2 x 1.3 cm. The prostate is slightly enlarged. Bladder wall thickening with mild adjacent stranding is noted. No acute fractures within the lumbar spine, pelvis or hips are identified. IMPRESSION: 1. No acute traumatic findings within the abdomen or pelvis. 2. Mild bladder wall thickening with adjacent stranding. This is nonspecific and could be correlated with urinalysis to exclude cystitis. 3. Several prominent bilateral iliac chain lymph nodes. These may be reactive however are indetermina te and a CT of the abdomen and pelvis in 3 months is recommended for reassessment. ACT 112: Negative or not required by law. Electronically signed by: Martínez Anand M.D. 05/23/2024 2:21 PM
[2024-05-23 14:48] LABS: Base Excess VBG 3.8 mEq/L; HCO3 VBG 29 mmol/L; Oxygen Saturation VBG < 60.0 %; PCO2 VBG 46 mmHg (38-50); PO2 VBG 21 mmHg; pH VBG 7.41 (7.36-7.41)
[2024-05-23 15:29] LABS: Appearance Urine Clear (Clear); Bacteria Urine Automated None Seen (None Seen); Bilirubin Urine Negative (Negative); Blood Urine 1+ (Negative); Cast Urine Automated 0-2 /lpf (0-2); Color Urine Yellow; Epithelial Cell Urine Auto 0-2 /hpf (0-2); Glucose Urine UA 3+ (Negative); Ketones Urine Negative (Negative); Leukocyte Esterase Urine 1+ (Negative); Nitrite Urine Negative (Negative); Protein Urine Negative (Negative); RBC Urine Automated 0-2 /hpf (0-2); Specific Gravity Urine 1.037 (1.000-1.030); Urobilinogen Urine Negative (Negative); pH Urine 5.5 (4.5-7.5)
--- NOTE | 2024-05-23 15:29 | History & Physical Report ---
Date of Service May 23, 2024 Assessment & Plan (1) AMS (altered mental status): (2) HESHAM (acute kidney injury): (3) Nocturnal hypoxemia: (4) Chronic heart failure with reduced ejection fraction and diastolic dysfunction: (5) Hypertension: (6) Moderate intellectual disabilities: (7) Diabetes mellitus, type 2: (8) Intermittent explosive disorder: (9) Impulse control disorder: Plan This is a 68 y/o male with dyslipidemia, DM2, history of CAD/prior RI, history of systolic and diastolic CHF (EF 50 to 50% on echo 2022), hx spina bifida, mild intellectual disability, impulsive disorder, depression, hypothyroidism, GERD, BPH, and other history as outlined below who was brought to the ED today from [facility] with hypoxia and increased lethargy.Work-up in the ED reveals elevated WBCs at 14.88, HESHAM with creatinine 1.49, UA with 3+ glucose, 1+ blood, 1+ leuk esterase, 11-20 WBC/hpf. BioFire was negative. Procal normal at 0.11. Oxygen was able to be weaned in the ED but due to abnormal labs and lethargy this morning, pt was referred for admission for further work-up and management. #Transient lethargy #Leukocytosis #Possible UTI (abnormal UA) - Admit to med telemetry - Blood and urine cultures ordered and pending - Empiric ceftriaxone - Fall/aspiration precautions - Repeat labs in the AM - CBC, BMP #Type 2 Diabetes - Insulin sliding scale - BSG ACHS - Diabetic diet #HESHAM - suspect multifactorial including possible UTI, decreased oral intake, furosemide - Gentle IVF, encourage oral intake - Labs in the AM - Hold furosemide, avoid nephrotoxins #Right ICA stenosis Patient on aspirin. LDL 93. c/w statin. Follow-up with vascular as OP. #Nocturnal hypoxemia Continue nocturnal oxygen at baseline 2L #Chronic systolic and diastolic CHF EF 50 to 50% echo in 2022 Holding furosemide at present due to HESHAM #Hypertension On Coreg and lisinopril. Will monitor #Hypothyroidism Continue Synthroid #GERD: On omeprazole Continue PPI therapy #History of depression #Generalized anxiety disorder #Compulsive disorder and mild intellectual disability On venlafaxine, divalproex, buspirone, bupropion, Abilify, doxepin, Seroquel and risperidone Will continue all home meds and monitor #CAD Continue aspirin and beta-kenyatta #History of BPH: Monitor for urinary retention #History of spina bifida Pt seen and reviewed with collaborating physician, Dr. Wright. Plan of care discussed and as outlined above. Code status: DNR/DNI (per discussion with caregivers) DVT prophylaxis: Heparin subQ Darius Stover PA-C History of Present Illness Chief Complaint: low oxygen levels, change in mental status Primary Care Provider: Tim Swenson DO This is a 68 y/o male with dyslipidemia, DM2, history of CAD/prior RI, history of systolic and diastolic CHF (EF 50 to 50% on echo 2022), hx spina bifida, mild intellectual disability, impulsive disorder, depression, hypothyroidism, GERD, BPH, and other history as outlined below who was brought to the ED today from [facility] with hypoxia and increased lethargy. Pt has had multiple hospital admissions over the last three months with most recent discharge from [facility] on 05/16. Saw his PCP on 05/18 and was doing well at that visit. Furosemide that was held during last admission has been restarted. History from the patient is limited so additional history obtained from the staff from [facility] at the bedside and from review of most recent PCP note in [facility]. Pt was in his usual state of health end of last week. However, last night, he reportedly required more O2 than his baseline while sleeping in order to maintain O2 sats in the mid 90s as per their protocol. This morning, when the staff went to help him transfer and get dressed, he was more weak than usual and reportedly dropped his O2 sats again, so they brought him to the ED for evaluation. Initially, in the ED, pt was more lethargic that his reported baseline. However, this seems to be improving, and he is currently stating that he is hungry and wants to go home. Recent Admissions: 04/05-04/09/24 with severe sepsis due to acute UTI, acute metabolic encephalopathy, HESHAM; treated with IV antibiotics before being transitioned to oral ciprofloxacin, renal function improved with IV fluids. 04/09-04/12/24 with respiratory failure with hypoxia likely multifactorial, nocturnal pulse oximetry did reveal >5 minutes of desaturation so discharged with script for nocturnal oxygen therapy. 04/19/24-04/22/24 with hypoglycemia, HESHAM, and LLE wound/cellulitis. His glimepiride was discontinued and renal function improved with IVF. Infection treated with Rocephin then course of antibiotics completed outpatient with cephalexin 05/13-05/16/24 with Norovirus infection, HESHAM due to V/D. Treated with supportive care with improvement. HESHAM again resolved with fluids. Allergies Allergy/AdvReac Type Severity Reaction Status Date / Time terbinafine Allergy Mild RASH ON Verified 05/23/24 15:12 ARM? Penicillins Allergy Unknown Unknown Unverified 05/23/24 15:12 Home Medications Medication Instructions Recorded Confirmed Type aripiprazole 15 mg tablet 15 mg PO DAILY 05/13/24 05/23/24 History aspirin 81 mg chewable tablet 81 mg PO DAILY 05/13/24 05/23/24 History bupropion HCl 300 mg 24 hr tablet, 300 mg PO DAILY 05/13/24 05/23/24 History extended release buspirone 15 mg tablet 15 mg PO BID 05/13/24 05/23/24 History carvedilol 25 mg tablet (Coreg) 25 mg PO BID 05/13/24 05/23/24 History divalproex 500 mg tablet,extended 1,500 mg PO DAILY 05/13/24 05/23/24 History release 24 hr doxepin 10 mg capsule 10 mg PO HS 05/13/24 05/23/24 History empagliflozin 25 mg tablet 25 mg PO DAILY 05/13/24 05/23/24 History (Jardiance) furosemide 40 mg tablet 40 mg PO DAILY 05/13/24 05/23/24 History levothyroxine 100 mcg tablet 100 mcg PO DAILY 05/13/24 05/23/24 History lisinopril 10 mg tablet 10 mg PO DAILY 05/13/24 05/23/24 History multivitamin with folic acid 400 1 tab PO DAILY 05/13/24 05/23/24 History mcg tablet (Daily-Ezekiel (with folic acid)) quetiapine 50 mg tablet 50 mg PO TID 05/13/24 05/23/24 History risperidone 0.25 mg tablet 0.25 mg PO DAILY 05/13/24 05/23/24 History sennosides 8.6 mg tablet (senna) 8.6 mg PO BID 05/13/24 05/23/24 History sucralfate 1 gram tablet 1 g PO DAILY 05/13/24 05/23/24 History venlafaxine 37.5 mg 37.5 mg PO DAILY 05/13/24 05/23/24 History capsule,extended release 24 hr venlafaxine 75 mg capsule,extended 75 mg PO DAILY 05/13/24 05/23/24 History release 24 hr atorvastatin 20 mg tablet 20 mg PO DAILY 05/23/24 05/23/24 History omeprazole 40 mg capsule,delayed 40 mg PO DAILY 05/23/24 05/23/24 History release Past Med/Surg History Problem List (Updated 05/23/24 @ 16:45 by Diane Stover PA-C) AMS (altered mental status) (Acute) Hypoxia (Acute) Enteritis due to Norovirus (Acute) Acute dehydration (Acute) HESHAM (acute kidney injury) (Acute) Nausea, vomiting, and diarrhea (Acute) Internal carotid artery stenosis (Acute) Slurred speech (Acute) Hypoglycemia (Acute) Nocturnal hypoxemia Acute dyspnea (Acute) Severe sepsis Acute hyponatremia (Acute) Elevated lactic acid level (Acute) Leukocytosis (Acute) Dehydration (Acute) HESHAM (acute kidney injury) (Acute) Hypotension (Acute) Elevated troponin (Acute) Sepsis (Acute) Back pain Closed L2 vertebral fracture (Acute) Pulmonary edema (Acute) Pneumonitis (Acute) Lactic acidemia (Acute) Contrast dye induced nephropathy Acute renal insufficiency Elevated troponin Chronic heart failure with reduced ejection fraction and diastolic dysfunction Hypertension (Acute) Intellectual disability (Acute) Congestive heart failure (CHF) Aspiration pneumonia Psychiatric disorder Intermittent explosive disorder Anxiety disorder, unspecified Depression Medical History (Updated 05/23/24 @ 16:45 by Diane Stover PA-C) Vocal cord paralysis, unilateral complete GERD (gastroesophageal reflux disease) Myocardial infarction Remote hx per records > medically managed Coronary artery disease Thrombocytopenia Chronic thrombocytopenia, baseline platelets low 100s per chart review Obesity Cerebral palsy Moderate intellectual disabilities sister/POA -ASHLEY IRENE [phone]-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 SIGNS CONSENTS Anemia MRSA (methicillin resistant Staphylococcus aureus) carrier Dysphagia Keratoconus Cataract Arthritis Spina bifida Hypothyroidism Diabetes mellitus, type 2 Chronic ischemic heart disease Hyperlipidemia Hypertension Intermittent explosive disorder Impulse control disorder Severe anxiety Combative behavior Fall Fall risk Surgical History (Updated 05/23/24 @ 16:30 by Diane Stover PA-C) History of laparoscopic cholecystectomy Laparoscopic cholecystectomy [address] Wolff H/O tooth extraction History of esophagogastroduodenoscopy (EGD) History of colonoscopy EGD/colonoscopy (12/07/19): MAC sedation at [facility] History of bronchoscopy Flexible bronchoscopy with BAL (02/04/18): Grade view 1, Elective glidescope #4, ETT 8.5 at [facility] (done for aspiration PNA) Family History Other No significant family history Social History Smoking Status: Never smoker Second Hand Exposure: No; Do You Dip or Chew Tobacco: No; Hx Alcohol Use: No Hx Substance Use: No Preferred Language: Czech Communication Ability: Effective Communication Ability Comment: 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 Beliefs That Will Affect Care: None marital status: Single Current Living Situation: Other Current Living Situation Comment: [employer]oo current occupational status: disabled Feels Safe at Home: Yes Assistive Devices: Wheelchair Review of Systems Review of Systems: Limited due to intellectual disability Physical Exam Physical Exam: General: awake, alert, NAD HEENT: no scleral icterus, moist oral mucosa Heart: RRR Lungs: CTA bilaterally Abdomen: soft, +BS Extremities: no pedal edema, distal pulses intact and equal Skin: warm, dry, no jaundice Neurologic: answering yes/no questions appropriately, easily agitated, moving all extremities without focal deficit Results & Data Results & Data Vital Signs (Past 12 Hours) Vital Signs Temp Pulse Resp BP Pulse Ox O2 Del Method 05/23/24 12:30 72 15 92 05/23/24 12:15 71 26 H 91 05/23/24 12:13 73 05/23/24 11:57 37 C 72 28 H 111/72 93 Room Air Laboratory Results Lab Results 05/23/24 05/23/24 05/23/24 Range/Units 12:12 12:13 14:37 WBC 14.88 H (4.8-10.8) K/ul RBC 3.91 L (4.70-6.10) M/uL Hgb 11.6 L (14.0-18.0) g/dl Hct 34.8 L (42.0-52.0) % MCV 89.0 (80.0-100.0) fL MCH 29.7 (25.0-34.0) pg MCHC 33.3 (32.0-36.0) g/dL RDW Std Deviation 53.4 H (36.4-46.3) fL RDW Coeff of Josiah 16.2 H (11.5-14.5) % Plt Count 163 (130-400) K/uL MPV 10.5 (9.4-12.4) fL Immature Gran % (Auto) 0.8 % Neut % (Auto) 71.7 % Lymph % (Auto) 16.5 % [place] % (Auto) 10.8 % Eos % (Auto) 0.1 % Baso % (Auto) 0.1 % Neut # (Auto) 10.67 H (1.40-6.50) K/uL Lymph # (Auto) 2.45 (1.20-3.40) K/uL [place] # (Auto) 1.60 H (0.11-0.59) K/uL Eos # (Auto) 0.02 (0.00-0.50) K/uL Baso # (Auto) 0.02 (0.00-0.20) K/uL Immature Gran # (Auto) 0.12 (0.01-0.20) K/uL VBG pH 7.41 (7.36-7.41) VBG pCO2 46 (38-50) mmHg VBG pO2 21 mmHg VBG HCO3 29 mmol/L VBG O2 Saturation < 60.0 % VBG Base Excess 3.8 mEq/L Sodium 134 L (136-145) mmol/L Potassium 4.0 (3.5-5.1) mmol/L Chloride 101 (98-107) mmol/L Carbon Dioxide 25 (21-32) mmol/L Anion Gap 8 (3-11) BUN 12 (6-23) mg/dl Creatinine 1.49 H (0.6-1.4) mg/dl Est Cr Clr Drug Dosing 58.9 ml/min eGFR 51.44 BUN/Creatinine Ratio 8.1 L (10-20) Glucose 142 H (70-99(Fasting)) mg/dl Calcium 8.9 (8.6-10.3) mg/dl Total Bilirubin 0.5 (0.2-1.0) mg/dl AST 18 (13-39) U/L ALT 13 (7-52) U/L Alkaline Phosphatase 63 (34-104) U/L Troponin I High Sens 8.6 (0-20) pg/ml B-Natriuretic Peptide 146 H (0-100) pg/ml Total Protein 8.4 H (6.0-8.3) gm/dl Albumin 3.6 (3.4-5.0) gm/dl Globulin 4.8 H (2.5-4.0) gm/dl Albumin/Globulin Ratio 0.8 L (0.9-2) Adenovirus (PCR) Not Detected (NotDetected) B. pertussis DNA (PCR) Not Detected (NotDetected) B.parapertussis DNA PCR Not Detected (NotDetected) C. pneumoniae DNA (PCR) Not Detected (NotDetected) Coronavirus OC43 (PCR) Not Detected (NotDetected) Coronavirus HKU1 (PCR) Not Detected (NotDetected) Coronavirus 229E (PCR) Not Detected (NotDetected) SARS-CoV-2 (PCR) Not Detected (NotDetected) Coronavirus NL63 (PCR) Not Detected (NotDetected) Human Metapneumovir PCR Not Detected (NotDetected) Influenza Type A (PCR) Not Detected (NotDetected) Influenza Type B (PCR) Not Detected (NotDetected) M. pneumoniae (PCR) Not Detected (NotDetected) Parainfluenza 1 (PCR) Not Detected (NotDetected) Parainfluenza 2 (PCR) Not Detected (NotDetected) Parainfluenza 3 (PCR) Not Detected (NotDetected) Parainfluenza 4 (PCR) Not Detected (NotDetected) RSV (PCR) Not Detected (NotDetected) Entero/Rhino (PCR) Not Detected (NotDetected) Diagnostic Findings Chest X-Ray 05/23/24 11:54 XR chest 1V portable CLINICAL HISTORY: Hypoxia. COMPARISON STUDY: Chest CT April 10, 2024. Chest radiograph April 19, 2024. FINDINGS: There is no pneumothorax. Blunting of the left costophrenic angle is likely related to epicardial fat pad. Moderate cardiomegaly is again noted. There is pulmonary vascular congestion with suspected mild pulmonary edema. No definite consolidation to suggest pneumonia. Apparent left basilar opacity is likely artifactual. There is an old left clavicular fracture. IMPRESSION: Cardiomegaly. Pulmonary vascular congestion with suspected mild pulmonary edema. ACT 112: Negative or not required by law. Electronically signed by: Martínez Aannd M.D. 05/23/2024 1:20 PM Abdomen/Pelvis CT 05/23/24 12:44 CT OF THE ABDOMEN AND PELVIS WITH CONTRAST CLINICAL HISTORY: trauma COMPARISON STUDY: CT of the abdomen and pelvis May 13, 2024. TECHNIQUE: Following IV administration of 93 mL of Optiray, axial images of the abdomen and pelvis were obtained from the lung bases to the proximal femurs. Images were reviewed in the axial, sagittal, and coronal planes. IV contrast was administered without complication. Automated exposure control was utilized for the study. A dose lowering technique was utilized adhering to the principles of ALARA. CT DOSE: 5492.37 mGy.cm FINDINGS: No hemoperitoneum or pneumoperitoneum is present. There is no evidence for traumatic injury to the liver, spleen, adrenal glands, kidneys or pancreas. No biliary or pancreatic ductal dilatation. There is no hydronephrosis. 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 There are several prominent bilateral iliac chain lymph nodes. A right common iliac lymph node on image 260 measures 1.7 x 1.3 cm. A left external iliac lymph node on image 326 measures 2.2 x 1.3 cm. The prostate is slightly enlarged. Bladder wall thickening with mild adjacent stranding is noted. No acute fractures within the lumbar spine, pelvis or hips are identified. IMPRESSION: 1. No acute traumatic findings within the abdomen or pelvis. 2. Mild bladder wall thickening with adjacent stranding. This is nonspecific and could be correlated with urinalysis to exclude cystitis. 3. Several prominent bilateral iliac chain lymph nodes. These may be reactive however are indeterminate and a CT of the abdomen and pelvis in 3 months is recommended for reassessment. ACT 112: Negative or not required by law. Electronically signed by: Martínez Anand M.D. 05/23/2024 2:[address] 05/23/24 12:44 CT OF THE CERVICAL SPINE WITHOUT CONTRAST CLINICAL HISTORY: trauma COMPARISON STUDY: CT of the neck April 19, 2024. Cervical spine CT March 27, 2023. TECHNIQUE: Helical axial images of the cervical spine were obtained without IV contrast. Sagittal and coronal reconstructions were viewed. Automated exposure control was utilized for the study. A dose lowering technique was utilized adhering to the principles of ALARA. FINDINGS: Alignment of the cervical spine is anatomic. Vertebral body heights are maintained. No acute cervical spine fracture or subluxation is present. There is no prevertebral edema. Facet joints are intact. Moderate multilevel disc space narrowing, endplate osteophytosis and facet arthrosis is present. IMPRESSION: No acute cervical spine fracture or subluxation. ACT 112: Negative or not required by law. Electronically signed by: Martínez Anand M.D. 05/23/2024 2:[address] 05/23/24 12:[address] WITH CONTRAST HISTORY: Acute chest trauma status post fall trauma TECHNIQUE: Multiaxial CT images of the chest were performed following the IV administration of 93 cc of Optiray. A dose lowering technique was utilized adhering to the principles of ALARA. COMPARISON: CT abdomen and pelvis of same day, CT chest 04/10/2024, CT cervical spine 03/27/2023 FINDINGS: Unremarkable thyroid. No lymphadenopathy. Mild cardiomegaly with extensive coronary artery calcifications. No pericardial effusion. No thoracic aortic aneurysm. Unremarkable pulmonary artery. No pneumothorax, pleural effusion or pulmonary edema. Bibasilar bronchial wall thickening with areas of mucous plugging. Groundglass densities with linear subpleural consolidative opacities suggestive of atelectasis/scarring. No suspicious pulmonary nodules or masses. No acute upper abdominal abnormality. Gynecomastia. Degenerative changes of the shoulders and spine. There are several chronic appearing nondisplaced bilateral anterior rib fractures. 1.3 cm lucent focus involves the T2 vertebral body which is unchanged dating back to the 2022 study. No acute displaced fracture identified. Upper thoracic levoscoliosis. IMPRESSION: 1. Mild bibasilar mucous plugging with bibasilar atelectasis. 2. No acute fracture or pneumothorax. 3. Chronic bilateral anterior rib fractures. 4. Cardiomegaly with extensive coronary artery calcifications. ACT 112: Negative or not required by law. Electronically signed by: Gaston Martinez M.D. 05/23/2024 1:[address] 05/23/24 12:44 CT OF THE HEAD WITHOUT CONTRAST CLINICAL HISTORY: trauma COMPARISON STUDY: Head CT April 19, 2024. TECHNIQUE: Helical axial images of the head were obtained without IV contrast. Automated exposure control was utilized for the study. A dose lowering technique was utilized adhering to the principles of ALARA. FINDINGS: This exam is mildly compromised by motion artifact. No acute intracranial hemorrhage, midline shift or mass effect is present. Ventricular system is stable. Basal cisterns are patent. There are no extra axial collections. There are no findings to suggest acute dural sinus thrombosis or acute territorial infarct. No calvarial fractures are identified. IMPRESSION: 1. No acute intracranial findings. Exam mildly compromised by motion artifact. 2. No calvarial fractures identified. ACT 112: Negative or not required by law. Electronically signed by: Martínez Anand M.D. 05/23/2024 1:51 PM Medications Administered Discontinued Medications Ioversol (Optiray 320 100ml) 93 ml IV ONCE ONE Stop: 05/23/24 13:30 Last Admin: 05/23/24 13:29 Dose: 93 ml Documented By: BUCK Supervising Physician Co-Signing Physician Notes 68 yo M w/ PMH of mild intellectual disability, impulsive disorder, diastolic chf (EF of 50-55%, echo 2022), spina bifida, T2DM, CAD/prior RI was brought in from [id number] due to hypoxia, and lethargy. WBC elevated, Cr elevated, CT chest w/ no pul edema and bibasal atelectasis noted. likely UTI: ro other infection, send blood culture, rocephin, f/u urine c/s. HESHAM: hold diuretic/lisinopril, gentle ivf, encourage po intake, labs in AM. On exam: GENERAL: Alert and oriented x3. NAD, on RA. HEENT: No pallor, no icterus. Pupils equal, round and reactive to light. Oral mucosa moist. NECK: No JVD, no neck masses. HEART: S1 and S2 heard. Regular rate and rhythm. No murmur, no gallop. RESPIRATORY SYSTEM: Normal AP diameter. No accessory muscle use. No wheezing, no crackles. ABDOMEN: Soft, bowel sounds present, nontender, no distention. CENTRAL NERVOUS SYSTEM: No facial droop. Speech is clear. Obeys simple commands. Moves extremities. EXTREMITIES: No edema, no erythema seen. I have seen and examined the patient and have discussed the case with the provider above. I agree with the assessment and plan as stated. Time spent separately: 25 min (1) AMS (altered mental status) Altered mental status type: unspecified Qualified Code(s): R41.82 - Altered mental status, unspecified (5) Hypertension Hypertension type: unspecified secondary hypertension Qualified Code(s): I15.9 - Secondary hypertension, unspecified (7) Diabetes mellitus, type 2 Diabetes mellitus complication status: with other specified complication Diabetes mellitus exterminator insulin use: without exterminator use Qualified Code(s): E11.69 - Type 2 diabetes mellitus with other specified complication
[2024-05-23] MEDS: SODIUM CHLORIDE 0.9% 1,000 ML IV SCH (16:42)
[2024-05-23] MEDS: cefTRIAXone SODIUM 2,000 MG/50 ML BAG IV SCH (16:42)
[2024-05-23] MEDS ORDERED: DEXTROSE 50% 50 ML SYRINGE IV PRN (18:49)
[2024-05-23] MEDS ORDERED: CARBOHYDRATES FOR HYPOGLYCEMIA PO PRN (18:49)
[2024-05-23] MEDS ORDERED: ACETAMINOPHEN 325 MG TAB PO PRN (18:49)
[2024-05-23] MEDS ORDERED: GLUCOSE 40% GEL 15 GM TUBE PO PRN (18:49)
[2024-05-23] MEDS ORDERED: GLUCAGON FOR INJ 1 MG VIAL SQ PRN (18:49)
[2024-05-23] MEDS ORDERED: GLUCOSE 10 TAB/TUBE PO PRN (18:49)
[2024-05-23] MEDS: INSULIN ASPART PER UNIT CHARGE SC SCH (20:55)
[2024-05-23] MEDS: DOXEPIN HCL 10 MG CAPSULE PO SCH (21:45)
[2024-05-23] MEDS: QUEtiapine FUMARATE 25 MG TABLET PO SCH (21:46)
[2024-05-23] MEDS: busPIRone 15 MG TAB PO SCH (21:47)
[2024-05-23] MEDS: carvediloL 25 MG TAB PO SCH (21:47)
[2024-05-23] MEDS: HEPARIN SOD 5,000 UNIT/0.5 ML VIAL SQ SCH (21:48)
[2024-05-23] MEDS: SENNA 8.6 MG TAB PO SCH (21:48)
[2024-05-24] MEDS: LEVOTHYROXINE SODIUM 100 MCG TABLET PO SCH (06:04)
[2024-05-24 06:26] LABS: Basophils # (auto) 0.02 K/uL (0.00-0.20); Basophils % (auto) 0.2 %; Eosinophils # (auto) 0.06 K/uL (0.00-0.50); Eosinophils % (auto) 0.6 %; Hematocrit (blood only) 32.3 % (42.0-52.0); Hemoglobin 10.6 g/dl (14.0-18.0); Immature Granulocytes # (auto) 0.09 K/uL (0.01-0.20); Immature Granulocytes % (auto) 0.9 %; Lymphocytes # (auto) 1.85 K/uL (1.20-3.40); Mean Corpuscular Hemoglobin 29.1 pg (25.0-34.0); Mean Corpuscular Hgb Conc 32.8 g/dL (32.0-36.0); Mean Corpuscular Volume 88.7 fL (80.0-100.0); Monocytes # (auto) 1.21 K/uL (0.11-0.59); Monocytes % (auto) 12.4 %; Neutrophils # (auto) 6.51 K/uL (1.40-6.50); Neutrophils % (auto) 66.9 %; Platelet Count 137 K/uL (130-400); RDW Coefficient of Variation 16.1 % (11.5-14.5); RDW Standard Deviation 53.2 fL (36.4-46.3); Red Blood Count 3.64 M/uL (4.70-6.10); White Blood Count 9.74 K/ul (4.8-10.8)
[2024-05-24 06:42] LABS: BUN Creatinine Ratio 9.3 (10-20); Calcium 8.4 mg/dl (8.6-10.3); Creatinine Clr Calc Pharmacy 77.9 ml/min; Potassium 3.6 mmol/L (3.5-5.1)
[2024-05-24] MEDS: ARIPiprazole 15 MG TAB PO SCH (08:43)
[2024-05-24] MEDS: risperiDONE 0.25 MG TAB PO SCH (08:43)
[2024-05-24] MEDS: buPROPion XL 300 MG TABCR PO SCH (08:43)
[2024-05-24] MEDS: PANTOprazole 40 MG TAB PO SCH (08:43)
[2024-05-24] MEDS: DIVALPROEX EXTENDED RELEASE 500 MG TAB PO SCH (08:43)
[2024-05-24] MEDS: ATORVASTATIN 20 MG TAB PO SCH (08:43)
[2024-05-24] MEDS: ASPIRIN 81 MG ECTAB PO SCH (08:43)
[2024-05-24] MEDS: SUCRALFATE 1 GM TAB PO SCH (08:43)
[2024-05-24] MEDS: VENLAFAXINE HCL XR 37.5 MG CAPXR PO SCH (08:44)
[2024-05-24] MEDS: VENLAFAXINE HCL XR 75 MG CAPXR PO SCH (08:44)
[2024-05-24 11:59] LABS: A calco-baum cmplx NotReported Not Detected (NotDetected); Bact fragilis Not Reported Not Detected (NotDetected); Blood Culture Id Panel See PCR Comment (NotDetected); C auris Not Reported Not Detected (NotDetected); Calbicans Not Reported Not Detected (NotDetected); Candida glabrata Not Reported Not Detected (NotDetected); Candida krusei Not Reported Not Detected (NotDetected); Cneoformans/gatti Not Reported Not Detected (NotDetected); Cparapsilosis Not Reported Not Detected (NotDetected); E cloacae compx Not Reported Not Detected (NotDetected); Efaecalis Not Reported Not Detected (NotDetected); Efaecium Not Reported Not Detected (NotDetected); Enterobacterales Not Reported Not Detected (NotDetected); Escherichia coli Not Reported Not Detected (NotDetected); H influenzae Not Reported Not Detected (NotDetected); K aerogenes Not Reported Not Detected (NotDetected); Koxytoca Not Reported Not Detected (NotDetected); Kpneumoniae grp Not Reported Not Detected (NotDetected); Lmonocyt Not Reported Not Detected (NotDetected); N meningitidis Not Reported Not Detected (NotDetected); P aeruginosa Not Reported Not Detected (NotDetected); Proteus spp Not Reported Not Detected (NotDetected); Salmonella spp Not Reported Not Detected (NotDetected); Staph lugdunensis Not Reported Not Detected (NotDetected); Staph spp. Not Reported Not Detected (NotDetected); Staphaureus Not Reported Not Detected (NotDetected); Staphepi Not Reported Not Detected (NotDetected); Stenmaltophilia Not Reported Not Detected (NotDetected); Strep agal(GrpB) Not Reported Not Detected (NotDetected); Strep pneum Not Reported Not Detected (NotDetected); Strep pyog (GrpA) Not Reported Not Detected (NotDetected); Strep spp Not Reported DETECTED (NotDetected)
--- NOTE | 2024-05-24 12:02 | Hospitalist Progress Note ---
Date of Service May 24, 2024 Assessment & Plan (1) AMS (altered mental status): (2) HESHAM (acute kidney injury): (3) Nocturnal hypoxemia: (4) Chronic heart failure with reduced ejection fraction and diastolic dysfunction: (5) Hypertension: (6) Moderate intellectual disabilities: (7) Diabetes mellitus, type 2: (8) Intermittent explosive disorder: (9) Impulse control disorder: Plan This is a 68 y/o male with dyslipidemia, DM2, history of CAD/prior CA, history of systolic and diastolic CHF (EF 50 to 50% on echo 2022), hx spina bifida, mild intellectual disability, impulsive disorder, depression, hypothyroidism, GERD, BPH, and other history as outlined below who was brought to the ED today from [facility] with hypoxia and increased lethargy. Transient lethargy metabolic Encephalopathy Possible UTI Bacteremia Leukocytosis, tachypnea UA grossly unremarkable for infection CT abd/pelvis concerning for cystitis changes Chest XRAY with cardiomegaly, mild pulm edema Blood Cx currently growing gram + cocci in chains in 1/[address] with no acute findings Continue Rocephin Continue to monitor Type 2 Diabetes Insulin sliding scale BSG ACHS Diabetic diet HESHAM Gentle IVF, encourage oral intake Hold furosemide, avoid nephrotoxins Right ICA stenosis Patient on aspirin. LDL 93. c/w statin. Follow-up with vascular as OP. Nocturnal hypoxemia Continue nocturnal oxygen at baseline 2L Chronic systolic and diastolic CHF EF 50 to 50% echo in 2022 Holding furosemide at present due to HESHAM Hypertension On Coreg and lisinopril. Will monitor Hypothyroidism Continue Synthroid GERD: On omeprazole Continue PPI therapy History of depression Generalized anxiety disorder Compulsive disorder and mild intellectual disability On venlafaxine, divalproex, buspirone, bupropion, Abilify, doxepin, Seroquel and risperidone Will continue all home meds and monitor CAD Continue aspirin and beta-kenyatta History of BPH: Monitor for urinary retention History of spina bifida Stable DVT prophylaxis: Heparin subQ Admission and Anticipated Discharge Date Admission Date: May 23, 2024 Subjective patient was seen sitting up in bed watching TV Anxious for discharge Denied any shortness of breath or chest tightness Review of Systems Review of Systems: All systems reviewed & are unremarkable except as noted in Subjective Physical Exam Physical Exam: General: Alert CV: RRR Resp: Breath sounds clear bilaterally, no increased effort of breathing Abdomen:Soft, nontender Extremities: No edema in lower extremities bilaterally. Results & Data Results & Data Vital Signs (Past 12 Hours) Vital Signs Temp Pulse Pulse Resp BP Pulse Ox O2 Del Method 05/24/24 11:30 146/76 H 05/24/24 11:08 36.9 C 73 20 191/83 H 95 Room Air 05/24/24 08:00 Room Air 05/24/24 07:59 36.8 C 111 H 18 178/67 H 94 Room Air 05/24/24 07:14 63 05/24/24 03:00 37.2 C 68 20 153/82 H 96 Room Air Diagnostic Findings Chest X-Ray 05/23/24 11:54 XR chest 1V portable CLINICAL HISTORY: Hypoxia. COMPARISON STUDY: Chest CT April 10, 2024. Chest radiograph April 19, 2024. FINDINGS: There is no pneumothorax. Blunting of the left costophrenic angle is likely related to epicardial fat pad. Moderate cardiomegaly is again noted. There is pulmonary vascular congestion with suspected mild pulmonary edema. No definite consolidation to suggest pneumonia. Apparent left basilar opacity is likely artifactual. There is an old left clavicular fracture. IMPRESSION: Cardiomegaly. Pulmonary vascular congestion with suspected mild pulmonary edema. ACT 112: Negative or not required by law. Electronically signed by: Martínez Anand M.D. 05/23/2024 1:20 PM Abdomen/Pelvis CT 05/23/24 12:44 CT OF THE ABDOMEN AND PELVIS WITH CONTRAST CLINICAL HISTORY: trauma COMPARISON STUDY: CT of the abdomen and pelvis May 13, 2024. TECHNIQUE: Following IV administration of 93 mL of Optiray, axial images of the abdomen and pelvis were obtained from the lung bases to the proximal femurs. Images were reviewed in the axial, sagittal, and coronal planes. IV contrast was administered without complication. Automated exposure control was utilized for the study. A dose lowering technique was utilized adhering to the principles of ALARA. CT DOSE: 5492.37 mGy.cm FINDINGS: No hemoperitoneum or pneumoperitoneum is present. There is no evidence for traumatic injury to the liver, spleen, adrenal glands, kidneys or pancreas. No biliary or pancreatic ductal dilatation. There is no hydronephrosis. 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 There are several prominent bilateral iliac chain lymph nodes. A right common iliac lymph node on image 260 measures 1.7 x 1.3 cm. A left external iliac lymph node on image 326 measures 2.2 x 1.3 cm. The prostate is slightly enlarged. Bladder wall thickening with mild adjacent stranding is noted. No acute fractures within the lumbar spine, pelvis or hips are identified. IMPRESSION: 1. No acute traumatic findings within the abdomen or pelvis. 2. Mild bladder wall thickening with adjacent stranding. This is nonspecific and could be correlated with urinalysis to exclude cystitis. 3. Several prominent bilateral iliac chain lymph nodes. These may be reactive however are indeterminate and a CT of the abdomen and pelvis in 3 months is recommended for reassessment. ACT 112: Negative or not required by law. Electronically signed by: Martínez Anand M.D. 05/23/2024 2:[address] 05/23/24 12:44 CT OF THE CERVICAL SPINE WITHOUT CONTRAST CLINICAL HISTORY: trauma COMPARISON STUDY: CT of the neck April 19, 2024. Cervical spine CT March 27, 2023. TECHNIQUE: Helical axial images of the cervical spine were obtained without IV contrast. Sagittal and coronal reconstructions were viewed. Automated exposure control was utilized for the study. A dose lowering technique was utilized adhering to the principles of ALARA. FINDINGS: Alignment of the cervical spine is anatomic. Vertebral body heights are maintained. No acute cervical spine fracture or subluxation is present. There is no prevertebral edema. Facet joints are intact. Moderate multilevel disc space narrowing, endplate osteophytosis and facet arthrosis is present. IMPRESSION: No acute cervical spine fracture or subluxation. ACT 112: Negative or not required by law. Electronically signed by: Martínez Anand M.D. 05/23/2024 2:[address] 05/23/24 12:[address] WITH CONTRAST HISTORY: Acute chest trauma status post fall trauma TECHNIQUE: Multiaxial CT images of the chest were performed following the IV administration of 93 cc of Optiray. A dose lowering technique was utilized adhering to the principles of ALARA. COMPARISON: CT abdomen and pelvis of same day, CT chest 04/10/2024, CT cervical spine 03/27/2023 FINDINGS: Unremarkable thyroid. No lymphadenopathy. Mild cardiomegaly with extensive coronary artery calcifications. No pericardial effusion. No thoracic aortic aneurysm. Unremarkable pulmonary artery. No pneumothorax, pleural effusion or pulmonary edema. Bibasilar bronchial wall thickening with areas of mucous plugging. Groundglass densities with linear subpleural consolidative opacities suggestive of atelectasis/scarring. No suspicious pulmonary nodules or masses. No acute upper abdominal abnormality. Gynecomastia. Degenerative changes of the shoulders and spine. There are several chronic appearing nondisplaced bilateral anterior rib fractures. 1.3 cm lucent focus involves the T2 vertebral body which is unchanged dating back to the 2022 study. No acute displaced fracture identified. Upper thoracic levoscoliosis. IMPRESSION: 1. Mild bibasilar mucous plugging with bibasilar atelectasis. 2. No acute fracture or pneumothorax. 3. Chronic bilateral anterior rib fractures. 4. Cardiomegaly with extensive coronary artery calcifications. ACT 112: Negative or not required by law. Electronically signed by: Gaston Martinez M.D. 05/23/2024 1:[address] 05/23/24 12:44 CT OF THE HEAD WITHOUT CONTRAST CLINICAL HISTORY: trauma COMPARISON STUDY: Head CT April 19, 2024. TECHNIQUE: Helical axial images of the head were obtained without IV contrast. Automated exposure control was utilized for the study. A dose lowering technique was utilized adhering to the principles of ALARA. FINDINGS: This exam is mildly compromised by motion artifact. No acute intracranial hemorrhage, midline shift or mass effect is present. Ventricular system is stable. Basal cisterns are patent. There are no extra axial collections. There are no findings to suggest acute dural sinus thrombosis or acute territorial infarct. No calvarial fractures are identified. IMPRESSION: 1. No acute intracranial findings. Exam mildly compromised by motion artifact. 2. No calvarial fractures identified. ACT 112: Negative or not required by law. Electronically signed by: Martínez Anand M.D. 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
[2024-05-24 12:21] LABS: Streptococcus spp DETECTED (NotDetected)
--- NOTE | 2024-05-25 05:41 | Electrocardiogram Report ---
Test Reason : Blood Pressure : */* mmHG Vent. Rate : 72 BPM Atrial Rate : 72 BPM P-R Int : 170 ms QRS Dur : 80 ms QT Int : 398 ms P-R-T Axes : 64 12 54 degrees QTcB Int : 435 ms Normal sinus rhythm Low voltage QRS Inferior infarct (cited on or before 12-Apr-2022) Anterior infarct Abnormal ECG When compared with ECG of 13-May-2024 14:43, No significant change was found Confirmed by Cheng Joshua ([id number]) on 05/25/2024 5:41:38 AM Referred By: Confirmed By: Cheng Joshua
[2024-05-25 06:29] LABS: Basophils # (auto) 0.04 K/uL (0.00-0.20); Basophils % (auto) 0.5 %; Eosinophils # (auto) 0.14 K/uL (0.00-0.50); Eosinophils % (auto) 1.8 %; Hematocrit (blood only) 35.6 % (42.0-52.0); Hemoglobin 11.5 g/dl (14.0-18.0); Immature Granulocytes # (auto) 0.15 K/uL (0.01-0.20); Immature Granulocytes % (auto) 1.9 %; Lymphocytes # (auto) 2.06 K/uL (1.20-3.40); Lymphocytes % (auto) 26.5 %; Mean Corpuscular Hemoglobin 28.9 pg (25.0-34.0); Mean Corpuscular Hgb Conc 32.3 g/dL (32.0-36.0); Mean Corpuscular Volume 89.4 fL (80.0-100.0); Mean Platelet Volume 10.4 fL (9.4-12.4); Monocytes # (auto) 1.05 K/uL (0.11-0.59); Monocytes % (auto) 13.5 %; Neutrophils # (auto) 4.34 K/uL (1.40-6.50); Neutrophils % (auto) 55.8 %; Platelet Count 155 K/uL (130-400); RDW Coefficient of Variation 15.9 % (11.5-14.5); Red Blood Count 3.98 M/uL (4.70-6.10); White Blood Count 7.78 K/ul (4.8-10.8)
[2024-05-25 06:42] LABS: Albumin Globulin Ratio 0.6 (0.9-2); Albumin Level 3.1 gm/dl (3.4-5.0); BUN Creatinine Ratio 10.3 (10-20); Bilirubin,Total 0.3 mg/dl (0.2-1.0); Calcium 8.6 mg/dl (8.6-10.3); Creatinine Clr Calc Pharmacy 76.1 ml/min; Magnesium 2.2 mg/dl (1.7-2.4); Potassium 4.1 mmol/L (3.5-5.1); Total Protein 8.1 gm/dl (6.0-8.3)
[2024-05-25] MEDS: amLODIPine BESYLATE 5 MG TAB PO SCH (09:53)
[2024-05-25 15:11] VITALS: PULSE 70; RESP 20; TEMP 98.4; O2SAT 95
[2024-05-25 15:31] VITALS: BP 148/73
--- NOTE | 2024-05-25 16:22 | Discharge Summary ---
Discharge Summary Date of Service May 25, 2024 Principal Dx & Hospital Course #1 = Principal Diagnosis (1) AMS (altered mental status): (2) HESHAM (acute kidney injury): (3) Nocturnal hypoxemia: (4) Chronic heart failure with reduced ejection fraction and diastolic dysfunction: (5) Hypertension: (6) Moderate intellectual disabilities: (7) Diabetes mellitus, type 2: (8) Intermittent explosive disorder: (9) Impulse control disorder: Plan This is a 68 y/o male with dyslipidemia, DM2, history of CAD/prior NH, history of systolic and diastolic CHF (EF 50 to 50% on echo 2022), hx spina bifida, mild intellectual disability, impulsive disorder, depression, hypothyroidism, GERD, BPH, and other history as outlined below who was brought to the ED today from [facility] with hypoxia and increased lethargy. Transient lethargy metabolic Encephalopathy Possible UTI Bacteremia -Leukocytosis, tachypnea -UA grossly unremarkable for infection -CT abd/pelvis concerning for cystitis changes -Chest XRAY with cardiomegaly, mild pulm edema -Blood Cx currently growing gram + cocci in chains in 1/ bottles -switch to augmentin on discharge Type 2 Diabetes -Insulin sliding scale -BSG ACHS -Diabetic diet HESHAM -resolved Right ICA stenosis -Patient on aspirin. LDL 93. c/w statin. -Follow-up with vascular as OP. Nocturnal hypoxemia -Continue nocturnal oxygen at baseline 2L Chronic systolic and diastolic CHF -EF 50 to 50% echo in 2022 -Holding furosemide at present due to HESHAM Hypertension -On Coreg and lisinopril. Will monitor Hypothyroidism -Continue Synthroid GERD: On omeprazole -Continue PPI therapy History of depression Generalized anxiety disorder Compulsive disorder and mild intellectual disability -On venlafaxine, divalproex, buspirone, bupropion, Abilify, doxepin, Seroquel and risperidone CAD Continue aspirin and beta-kenyatta History of BPH: Monitor for urinary retention History of spina bifida Stable Notes For Next Care Provider This is a 68 y/o male with dyslipidemia, DM2, history of CAD/prior NH, history of systolic and diastolic CHF (EF 50 to 50% on echo 2022), hx spina bifida, mild intellectual disability, impulsive disorder, depression, hypothyroidism, GERD, BPH, and other history as outlined below who was brought to the ED today from [facility] with hypoxia and increased lethargy. in the ED noted to have transient lethargic admitted medicine for further workup. On medicine, patient treated with antibiotics with slight improvement in mentation. Discussed with half-way, patient does not appear to have UTI and with 1 of only 4 blood cultures growing bacteria suspect this is likely contaminant. However, given patient mental status, will treat with 7-day total course of antibiotic. Patient at mental baseline and appropriate for discharge home. Medication Changes From Visit -levofloxacin (given pencillin allergy), amlodopine for high blood pressure Admission HPI Per Admitting Provider This is a 68 y/o male with dyslipidemia, DM2, history of CAD/prior NH, history of systolic and diastolic CHF (EF 50 to 50% on echo 2022), hx spina bifida, mild intellectual disability, impulsive disorder, depression, hypothyroidism, GERD, BPH, and other history as outlined below who was brought to the ED today from [facility] with hypoxia and increased lethargy. Pt has had multiple hospital admissions over the last three months with most recent discharge from [facility] on 05/16. Saw his PCP on 05/18 and was doing well at that visit. Furosemide that was held during last admission has been restarted. History from the patient is limited so additional history obtained from the staff from [facility] at the bedside and from review of most recent PCP note in [facility]. Pt was in his usual state of health end of last week. However, last night, he reportedly required more O2 than his baseline while sleeping in order to maintain O2 sats in the mid 90s as per their protocol. This morning, when the staff went to help him transfer and get dressed, he was more weak than usual and reportedly dropped his O2 sats again, so they brought him to the ED for ev aluation. Initially, in the ED, pt was more lethargic that his reported baseline. However, this seems to be improving, and he is currently stating that he is hungry and wants to go home. Recent Admissions: 04/05-04/09/24 with severe sepsis due to acute UTI, acute metabolic encephalopathy, HESHAM; treated with IV antibiotics before being transitioned to oral ciprofloxacin, renal function improved with IV fluids. 04/09-04/12/24 with respiratory failure with hypoxia likely multifactorial, nocturnal pulse oximetry did reveal >5 minutes of desaturation so discharged with script for nocturnal oxygen therapy. 04/19/24-04/22/24 with hypoglycemia, HESHAM, and LLE wound/cellulitis. His glimepiride was discontinued and renal function improved with IVF. Infection treated with Rocephin then course of antibiotics completed outpatient with cephalexin 05/13-05/16/24 with Norovirus infection, HESHAM due to V/D. Treated with supportive care with improvement. HESHAM again resolved with fluids. Discharge Exam Gen: A&O 1 NAD HEENT: NCAT, EOMI, not icteric. External ears normal. No rhinorrhea. Moist mucous membranes. Neck: Supple, full range of motion, no observable masses, No meningeal sign. Lungs: No Respiratory distress. CV: RRR, no edema. Abdomen: Soft, nondistended, No rebound tenderness. MSK: No joint swelling, no redness. Skin: No rashes, petechiae, lesions. Normal color per patient. Neuro: Normal Gait, Grossly intact. Psych: at patient baseline Updated Medication List Medication Instructions Recorded Confirmed Type aripiprazole 15 mg tablet 15 mg PO DAILY 05/13/24 05/23/24 History aspirin 81 mg chewable tablet 81 mg PO DAILY 05/13/24 05/23/24 History bupropion HCl 300 mg 24 hr tablet, 300 mg PO DAILY 05/13/24 05/23/24 History extended release buspirone 15 mg tablet 15 mg PO BID 05/13/24 05/23/24 History carvedilol 25 mg tablet (Coreg) 25 mg PO BID 05/13/24 05/23/24 History divalproex 500 mg tablet,extended 1,500 mg PO DAILY 05/13/24 05/23/24 History release 24 hr doxepin 10 mg capsule 10 mg PO HS 05/13/24 05/23/24 History empagliflozin 25 mg tablet 25 mg PO DAILY 05/13/24 05/23/24 History (Jardiance) levothyroxine 100 mcg tablet 100 mcg PO DAILY 05/13/24 05/23/24 History lisinopril 10 mg tablet 10 mg PO DAILY 05/13/24 05/23/24 History multivitamin with folic acid 400 1 tab PO DAILY 05/13/24 05/23/24 History mcg tablet (Daily-Ezekiel (with folic acid)) quetiapine 50 mg tablet 50 mg PO TID 05/13/24 05/23/24 History risperidone 0.25 mg tablet 0.25 mg PO DAILY 05/13/24 05/23/24 History sennosides 8.6 mg tablet (senna) 8.6 mg PO BID 05/13/24 05/23/24 History sucralfate 1 gram tablet 1 g PO DAILY 05/13/24 05/23/24 History venlafaxine 37.5 mg 37.5 mg PO DAILY 05/13/24 05/23/24 History capsule,extended release 24 hr venlafaxine 75 mg capsule,extended 75 mg PO DAILY 05/13/24 05/23/24 History release 24 hr atorvastatin 20 mg tablet 20 mg PO DAILY 05/23/24 05/23/24 History omeprazole 40 mg capsule,delayed 40 mg PO DAILY 05/23/24 05/23/24 History release amlodipine 5 mg tablet (Norvasc) 10 mg (2 x 5 mg) PO QAM #30 tabs 05/25/24 Rx levofloxacin 500 mg tablet 500 mg PO DAILY 5 days #5 tabs 05/25/24 Rx Hospital Stay Data Consultations 05/23/24 15:17 ED Decision to Admit Stat Diagnostic Imagining Performed 05/23/24 12:44 CT abd pelvis IV con only Stat CT cervical spine wo con Stat CT chest diagnostic w con Stat CT head/brain wo con Stat Pending Results Patient Have Any Pending Studies at Discharge: Yes Discharge Instructions Given to Patient (Per Discharging Provider) 1. Please take antibiotics as prescribed. 2. F/u CT abdomen/pelvis in 3 months. 3. Follow up with vascular surgery outpatient. Total Time Total Time Spent Total Time Spent (In Minutes): I spent a total of 35 minutes in direct patient care, including [id number] time with the patient and/or family, reviewing medical records, ordering and reviewing diagnostic tests, and coordinating care with other healthcare providers. This time includes: history taking, physical examination, medical decision making, counseling, ECG interpretation, imaging interpretation, lab interpretation, orders, and education, excluding time spent in the performance of separately billed services.
== END 2024-05-25 15:50 | disposition home or self-care (01) | DRG 871 ==
LOC: ED 11:44 → SUATTDRO 16:04 → 2W 16:04

== ENCOUNTER 2024-05-25 19:58 | Observation (INO) ==
[2024-05-25 20:29] LABS: Basophils # (auto) 0.04 K/uL (0.00-0.20); Basophils % (auto) 0.5 %; Eosinophils # (auto) 0.17 K/uL (0.00-0.50); Eosinophils % (auto) 2.2 %; Hematocrit (blood only) 35.8 % (42.0-52.0); Hemoglobin 11.5 g/dl (14.0-18.0); Immature Granulocytes # (auto) 0.16 K/uL (0.01-0.20); Immature Granulocytes % (auto) 2.1 %; Lymphocytes # (auto) 2.51 K/uL (1.20-3.40); Lymphocytes % (auto) 32.2 %; Mean Corpuscular Hemoglobin 28.5 pg (25.0-34.0); Mean Corpuscular Hgb Conc 32.1 g/dL (32.0-36.0); Mean Corpuscular Volume 88.6 fL (80.0-100.0); Monocytes # (auto) 0.84 K/uL (0.11-0.59); Monocytes % (auto) 10.8 %; Neutrophils # (auto) 4.08 K/uL (1.40-6.50); Neutrophils % (auto) 52.2 %; Platelet Count 166 K/uL (130-400); RDW Coefficient of Variation 15.9 % (11.5-14.5); Red Blood Count 4.04 M/uL (4.70-6.10)
[2024-05-25 20:49] LABS: Alanine Aminotransferase 13 U/L (7-52); Albumin Globulin Ratio 0.7 (0.9-2); Albumin Level 3.4 gm/dl (3.4-5.0); Alkaline Phosphatase 62 U/L (34-104); Anion Gap 7 (3-11); Aspartate Aminotransferase 22 U/L (13-39); BUN Creatinine Ratio 11.5 (10-20); Bilirubin,Total 0.3 mg/dl (0.2-1.0); Blood Urea Nitrogen 15 mg/dl (6-23); Calcium 8.5 mg/dl (8.6-10.3); Carbon Dioxide 22 mmol/L (21-32); Chloride 105 mmol/L (98-107); Globulin 4.9 gm/dl (2.5-4.0); Glucose 103 mg/dl (70-99(Fasting)); Lipase 39 U/L (11-82); Potassium 4.1 mmol/L (3.5-5.1); Sodium 134 mmol/L (136-145); Total Protein 8.3 gm/dl (6.0-8.3)
[2024-05-25 22:35] LABS: Magnesium 2.1 mg/dl (1.7-2.4)
[2024-05-25 22:42] LABS: Troponin I High Sensitivity 6.4 pg/ml (0-20)
[2024-05-25 22:52] LABS: Thyroid Stimulating Hormone 3.787 uIu/ml (0.300-4.500)
[2024-05-25] MEDS: OPTIRAY 320 125ml IV ONE (23:21)
[2024-05-25] MEDS ORDERED: LORazepam 1 MG/1 ML SYR ED Inj Use IV STA (23:21)
[2024-05-25 23:30] LABS: Adenovirus PCR Not Detected (NotDetected); Bordetella parapertussis PCR Not Detected (NotDetected); Bordetella pertussis PCR Not Detected (NotDetected); Chlamydia pneumoniae PCR Not Detected (NotDetected); Coronavirus 229E PCR Not Detected (NotDetected); Coronavirus CoV-2 (COVID19)PCR Not Detected (NotDetected); Coronavirus HKU1 PCR Not Detected (NotDetected); Coronavirus NL63 PCR Not Detected (NotDetected); Coronavirus OC43PCR Not Detected (NotDetected); Human Metapneumovirus PCR Not Detected (NotDetected); Influenza A PCR Not Detected (NotDetected); Influenza B PCR Not Detected (NotDetected); Mycoplasma pneumoniae PCR Not Detected (NotDetected); Parainfluenza Virus 1 PCR Not Detected (NotDetected); Parainfluenza Virus 2 PCR Not Detected (NotDetected); Parainfluenza Virus 3 PCR Not Detected (NotDetected); Parainfluenza Virus 4 PCR Not Detected (NotDetected); Respiratory Syncytial VirusPCR Not Detected (NotDetected); Rhinovirus/Enterovirus PCR Not Detected (NotDetected)
--- NOTE | 2024-05-26 00:17 | Emergency Department Note ---
ED Visit Note I was consulted by the Advanced Practice Provider. I personally made/approved the management plan and take responsibility for the patient management. I performed a substantive portion of the visit. This includes the aspects of: -History/Physical/Personally seeing the patient -MDM .
--- NOTE | 2024-05-26 00:20 | Emergency Department Note ---
History of Present Illness General Chief complaint: Abdominal Pain Stated complaint: AB PAIN SOB Time Seen by Provider: 05/25/24 21:56 History of Present Illness This 68-year-old from [employer] presents the ER with healthcare representative complaining of abdominal pain and shortness of breath. Patient sats were in the mid 80s per nursing and EMS. Patient denies nausea, vomiting, diarrhea, fever, chills, flulike illness. History is also obtained from the healthcare representative who is present. Home Medications Medication Instructions Recorded Confirmed Type aripiprazole 15 mg tablet 15 mg PO DAILY 05/13/24 05/25/24 History aspirin 81 mg chewable tablet 81 mg PO DAILY 05/13/24 05/25/24 History bupropion HCl 300 mg 24 hr tablet, 300 mg PO DAILY 05/13/24 05/25/24 History extended release buspirone 15 mg tablet 15 mg PO BID 05/13/24 05/25/24 History carvedilol 25 mg tablet (Coreg) 25 mg PO BID 05/13/24 05/25/24 History divalproex 500 mg tablet,extended 1,500 mg PO DAILY 05/13/24 05/25/24 History release 24 hr doxepin 10 mg capsule 10 mg PO HS 05/13/24 05/25/24 History empagliflozin 25 mg tablet 25 mg PO DAILY 05/13/24 05/25/24 History (Jardiance) levothyroxine 100 mcg tablet 100 mcg PO DAILY 05/13/24 05/25/24 History lisinopril 10 mg tablet 10 mg PO DAILY 05/13/24 05/25/24 History multivitamin with folic acid 400 1 tab PO DAILY 05/13/24 05/25/24 History mcg tablet (Daily-Ezekiel (with folic acid)) quetiapine 50 mg tablet 50 mg PO TID 05/13/24 05/25/24 History risperidone 0.25 mg tablet 0.25 mg PO DAILY 05/13/24 05/25/24 History sennosides 8.6 mg tablet (senna) 8.6 mg PO BID 05/13/24 05/25/24 History sucralfate 1 gram tablet 1 g PO DAILY 05/13/24 05/25/24 History venlafaxine 37.5 mg 37.5 mg PO DAILY 05/13/24 05/25/24 History capsule,extended release 24 hr venlafaxine 75 mg capsule,extended 75 mg PO DAILY 05/13/24 05/25/24 History release 24 hr atorvastatin 20 mg tablet 20 mg PO DAILY 05/23/24 05/25/24 History omeprazole 40 mg capsule,delayed 40 mg PO DAILY 05/23/24 05/25/24 History release amlodipine 10 mg tablet 10 mg PO DAILY #30 tabs 05/25/24 05/25/24 Rx levofloxacin 500 mg tablet 500 mg PO DAILY 5 days #5 tabs 05/25/24 05/25/24 Rx Allergies Allergy/AdvReac Type Severity Reaction Status Date / Time terbinafine Allergy Mild RASH ON Verified 05/23/24 15:12 ARM? Penicillins Allergy Unknown Unknown Unverified 05/23/24 15:12 Past Med/Surg History Problem List (Updated 05/26/24 @ 01:23 by Inna Nichole PA-C) Acute UTI (Acute) Hypoxic (Acute) Abdominal pain in male (Acute) AMS (altered mental status) (Acute) Hypoxia (Acute) Enteritis due to Norovirus (Acute) Acute dehydration (Acute) HESHAM (acute kidney injury) (Acute) Nausea, vomiting, and diarrhea (Acute) Internal carotid artery stenosis (Acute) Slurred speech (Acute) Hypoglycemia (Acute) Nocturnal hypoxemia Acute dyspnea (Acute) Severe sepsis Acute hyponatremia (Acute) Elevated lactic acid level (Acute) Leukocytosis (Acute) Dehydration (Acute) HESHAM (acute kidney injury) (Acute) Hypotension (Acute) Elevated troponin (Acute) Sepsis (Acute) Back pain Closed L2 vertebral fracture (Acute) Pulmonary edema (Acute) Pneumonitis (Acute) Lactic acidemia (Acute) Contrast dye induced nephropathy Acute renal insufficiency Elevated troponin Chronic heart failure with reduced ejection fraction and diastolic dysfunction Hypertension (Acute) Intellectual disability (Acute) Congestive heart failure (CHF) Aspiration pneumonia Psychiatric disorder Intermittent explosive disorder Anxiety disorder, unspecified Depression Medical History (Updated 05/26/24 @ 01:23 by Inna Nichole PA-C) Vocal cord paralysis, unilateral complete GERD (gastroesophageal reflux disease) Myocardial infarction Remote hx per records > medically managed Coronary artery disease Thrombocytopenia Chronic thrombocytopenia, baseline platelets low 100s per chart review Obesity Cerebral palsy Moderate intellectual disabilities sister/POA -ASHLEY IRENE [phone]-[employer] 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 SIGNS CONSENTS Anemia MRSA (methicillin resistant Staphylococcus aureus) carrier Dysphagia Keratoconus Cataract Arthritis Spina bifida Hypothyroidism Diabetes mellitus, type 2 Chronic ischemic heart disease Hyperlipidemia Hypertension Intermittent explosive disorder Impulse control disorder Severe anxiety Combative behavior Fall Fall risk Surgical History (Updated 05/23/24 @ 16:30 by Diane Stover PA-C) History of laparoscopic cholecystectomy Laparoscopic cholecystectomy [address] Wolff H/O tooth extraction History of esophagogastroduodenoscopy (EGD) History of colonoscopy EGD/colonoscopy (12/07/19): MAC sedation at [facility] History of bronchoscopy Flexible bronchoscopy with BAL (02/04/18): Grade view 1, Elective glidescope #4, ETT 8.5 at [facility] (done for aspiration PNA) Family History Other No significant family history Social History Smoking Status: Never smoker Second Hand Exposure: No; Do You Dip or Chew Tobacco: No; Hx Alcohol Use: No Hx Substance Use: No Preferred Language: Panamanian Communication Ability: Effective Communication Ability Comment: PT IS INTELLECTUALLY IMPAIRED Legal Executive Assistant Required: No Beliefs That Will Affect Care: None marital status: Single Current Living Situation: Other Current Living Situation Comment: [facility] current occupational status: disabled Feels Safe at Home: Yes Assistive Devices: Walker and Wheelchair Review of Systems A total of 10 systems reviewed and were otherwise negative Physical Exam Vital Signs Vital Signs - 24 hr 05/25/24 20:03 05/25/24 20:04 05/25/24 20:14 Temperature 36.9 C Temperature Source Oral Pulse Rate 72 Pulse Rate [Apical] Pulse Rate from SpO2 Sensor Pulse Rhythm Regular Pulse Rhythm [Apical] Pulse Strength Normal Pulse Strength [Apical] Respiratory Rate 19 Respiratory Effort / Characteristics Non-Labored Spontaneous Respiratory Depth Normal Respiratory Pattern Regular Blood Pressure 118/86 Blood Pressure Mean 96 Blood Pressure Position Sitting Pulse Oximetry 89 L 92 93 Oxygen Delivery Method Room Air Nasal Cannula Nasal Cannula Oxygen Flow Rate 2 2 Sepsis Recent Fever Within 48 Hours No Sepsis New/Unexplained Change in Mental Status No Sepsis Action Taken by Nursing No Action Required 05/25/24 20:39 05/25/24 20:39 05/25/24 20:48 Temperature Temperature Source Pulse Rate 67 67 66 Pulse Rate [Apical] Pulse Rate from SpO2 Sensor 67 66 Pulse Rhythm Pulse Rhythm [Apical] Pulse Strength Pulse Strength [Apical] Respiratory Rate 19 21 Respiratory Effort / Characteristics Respiratory Depth Respiratory Pattern Blood Pressure Blood Pressure Mean Blood Pressure Position Pulse Oximetry 94 94 Oxygen Delivery Method Nasal Cannula Oxygen Flow Rate 3 Sepsis Recent Fever Within 48 Hours Sepsis New/Unexplained Change in Mental Status Sepsis Action Taken by Nursing 05/25/24 20:51 05/25/24 21:00 05/25/24 21:01 Temperature Temperature Source Pulse Rate 66 70 Pulse Rate [Apical] Pulse Rate from SpO2 Sensor 67 68 Pulse Rhythm Pulse Rhythm [Apical] Pulse Strength Pulse Strength [Apical] Respiratory Rate 16 18 Respiratory Effort / Characteristics Respiratory Depth Respiratory Pattern Blood Pressure 148/66 H Blood Pressure Mean 81 Blood Pressure Position Pulse Oximetry 93 93 Oxygen Delivery Method Oxygen Flow Rate Sepsis Recent Fever Within 48 Hours Sepsis New/Unexplained Change in Mental Status Sepsis Action Taken by Nursing 05/25/24 21:27 05/25/24 21:30 05/25/24 21:30 Temperature Temperature Source Pulse Rate 68 68 Pulse Rate [Apical] Pulse Rate from SpO2 Sensor 67 68 Pulse Rhythm Pulse Rhythm [Apical] Pulse Strength Pulse Strength [Apical] Respiratory Rate 17 22 Respiratory Effort / Characteristics Respiratory Depth Respiratory Pattern Blood Pressure 152/85 H Blood Pressure Mean 93 Blood Pressure Position Pulse Oximetry 94 93 Oxygen Delivery Method Oxygen Flow Rate Sepsis Recent Fever Within 48 Hours Sepsis New/Unexplained Change in Mental Status Sepsis Action Taken by Nursing 05/25/24 21:30 05/25/24 21:42 05/25/24 21:54 Temperature Temperature Source Pulse Rate 68 68 Pulse Rate [Apical] Pulse Rate from SpO2 Sensor 69 68 Pulse Rhythm Pulse Rhythm [Apical] Pulse Strength Pulse Strength [Apical] Respiratory Rate 20 20 Respiratory Effort / Characteristics Respiratory Depth Respiratory Pattern Blood Pressure 152/85 H Blood Pressure Mean 93 Blood Pressure Position Pulse Oximetry 94 93 Oxygen Delivery Method Oxygen Flow Rate Sepsis Recent Fever Within 48 Hours Sepsis New/Unexplained Change in Mental Status Sepsis Action Taken by Nursing 05/25/24 22:01 05/25/24 22:03 05/25/24 22:12 Temperature Temperature Source Pulse Rate 68 Pulse Rate [Apical] 70 Pulse Rate from SpO2 Sensor 69 Pulse Rhythm Pulse Rhythm [Apical] Regular Pulse Strength Pulse Strength [Apical] Normal Respiratory Rate 19 17 Respiratory Effort / Characteristics Non-Labored Spontaneous Respiratory Depth Normal Respiratory Pattern Regular Blood Pressure 160/69 H Blood Pressure Mean 103 Blood Pressure Position Pulse Oximetry 94 93 Oxygen Delivery Method Nasal Cannula Oxygen Flow Rate 2 Sepsis Recent Fever Within 48 Hours Sepsis New/Unexplained Change in Mental Status Sepsis Action Taken by Nursing 05/25/24 22:27 05/25/24 22:30 05/25/24 22:30 Temperature Temperature Source Pulse Rate 69 69 Pulse Rate [Apical] Pulse Rate from SpO2 Sensor 69 69 Pulse Rhythm Pulse Rhythm [Apical] Pulse Strength Pulse Strength [Apical] Respiratory Rate 19 21 Respiratory Effort / Characteristics Respiratory Depth Respiratory Pattern Blood Pressure 176/85 H Blood Pressure Mean 119 Blood Pressure Position Pulse Oximetry 92 92 Oxygen Delivery Method Oxygen Flow Rate Sepsis Recent Fever Within 48 Hours Sepsis New/Unexplained Change in Mental Status Sepsis Action Taken by Nursing 05/25/24 22:45 05/25/24 22:57 05/25/24 23:00 Temperature Temperature Source Pulse Rate 68 70 Pulse Rate [Apical] Pulse Rate from SpO2 Sensor 68 70 Pulse Rhythm Pulse Rhythm [Apical] Pulse Strength Pulse Strength [Apical] Respiratory Rate 20 19 Respiratory Effort / Characteristics Respiratory Depth Respiratory Pattern Blood Pressure 179/90 H Blood Pressure Mean 120 Blood Pressure Position Pulse Oximetry 92 94 Oxygen Delivery Method Oxygen Flow Rate Sepsis Recent Fever Within 48 Hours Sepsis New/Unexplained Change in Mental Status Sepsis Action Taken by Nursing 05/25/24 23:06 05/25/24 23:27 05/25/24 23:30 Temperature Temperature Source Pulse Rate 70 67 Pulse Rate [Apical] Pulse Rate from SpO2 Sensor 70 67 Pulse Rhythm Pulse Rhythm [Apical] Pulse Strength Pulse Strength [Apical] Respiratory Rate 21 21 Respiratory Effort / Characteristics Respiratory Depth Respiratory Pattern Blood Pressure 140/66 Blood Pressure Mean 100 Blood Pressure Position Pulse Oximetry 94 Oxygen Delivery Method Oxygen Flow Rate Sepsis Recent Fever Within 48 Hours Sepsis New/Unexplained Change in Mental Status Sepsis Action Taken by Nursing 05/25/24 23:30 05/25/24 23:33 05/25/24 23:48 Temperature Temperature Source Pulse Rate 67 65 Pulse Rate [Apical] Pulse Rate from SpO2 Sensor 67 65 Pulse Rhythm Pulse Rhythm [Apical] Pulse Strength Pulse Strength [Apical] Respiratory Rate 23 19 Respiratory Effort / Characteristics Respiratory Depth Respiratory Pattern Blood Pressure 140/66 Blood Pressure Mean 100 Blood Pressure Position Pulse Oximetry 87 L 91 Oxygen Delivery Method Oxygen Flow Rate Sepsis Recent Fever Within 48 Hours Sepsis New/Unexplained Change in Mental Status Sepsis Action Taken by Nursing 05/26/24 00:00 05/26/24 00:00 05/26/24 00:00 Temperature Temperature Source Pulse Rate Pulse Rate [Apical] Pulse Rate from SpO2 Sensor Pulse Rhythm Pulse Rhythm [Apical] Pulse Strength Pulse Strength [Apical] Respiratory Rate Respiratory Effort / Characteristics Non-Labored Respiratory Depth Normal Respiratory Pattern Blood Pressure 134/74 134/74 Blood Pressure Mean 96 96 Blood Pressure Position Pulse Oximetry Oxygen Delivery Method Oxygen Flow Rate Sepsis Recent Fever Within 48 Hours Sepsis New/Unexplained Change in Mental Status Sepsis Action Taken by Nursing 05/26/24 00:12 05/26/24 00:14 05/26/24 00:30 Temperature Temperature Source Pulse Rate 67 68 71 Pulse Rate [Apical] Pulse Rate from SpO2 Sensor 67 71 Pulse Rhythm Pulse Rhythm [Apical] Pulse Strength Pulse Strength [Apical] Respiratory Rate 21 18 Respiratory Effort / Characteristics Respiratory Depth Respiratory Pattern Blood Pressure Blood Pressure Mean Blood Pressure Position Pulse Oximetry 92 97 Oxygen Delivery Method Oxygen Flow Rate Sepsis Recent Fever Within 48 Hours Sepsis New/Unexplained Change in Mental Status Sepsis Action Taken by Nursing 05/26/24 00:31 05/26/24 00:51 05/26/24 01:00 Temperature Temperature Source Pulse Rate 67 67 Pulse Rate [Apical] Pulse Rate from SpO2 Sensor 67 67 Pulse Rhythm Pulse Rhythm [Apical] Pulse Strength Pulse Strength [Apical] Respiratory Rate 23 17 Respiratory Effort / Characteristics Respiratory Depth Respiratory Pattern Blood Pressure 173/80 H Blood Pressure Mean 94 Blood Pressure Position Pulse Oximetry 91 93 Oxygen Delivery Method Oxygen Flow Rate Sepsis Recent Fever Within 48 Hours Sepsis New/Unexplained Change in Mental Status Sepsis Action Taken by Nursing 05/26/24 01:00 Temperature Temperature Source Pulse Rate Pulse Rate [Apical] Pulse Rate from SpO2 Sensor Pulse Rhythm Pulse Rhythm [Apical] Pulse Strength Pulse Strength [Apical] Respiratory Rate Respiratory Effort / Characteristics Respiratory Depth Respiratory Pattern Blood Pressure 170/95 H Blood Pressure Mean 122 Blood Pressure Position Pulse Oximetry Oxygen Delivery Method Oxygen Flow Rate Sepsis Recent Fever Within 48 Hours Sepsis New/Unexplained Change in Mental Status Sepsis Action Taken by Nursing VITALS: Vitals are noted on the nurse's note and reviewed by myself. Vital signs stable. GENERAL: Pleasant male, in no acute distress, nondiaphoretic, well-developed well-nourished. SKIN: Capillary reflex less than 2 seconds. HEENT: Normocephalic. PERRLA. EOMI. Nares patent. Mucous membranes moist. Neck is supple without nuchal rigidity. HEART: Regular rate and rhythm LUNGS: Clear to auscultation bilaterally without wheezes, rales or rhonchi. No retractions or accessory muscle use. ABDOMEN: Positive bowel sounds x 4. Normal tympanic percussion. Soft, mild mid abdominal tenderness, without masses or organomegaly. Ochoa sign negative. No guarding or rebound tenderness. no CVA tenderness MUSCULOSKELETAL: No gross musculoskeletal defects. NEURO: Patient was alert and oriented to person place and time. No focal neurological deficits. Course Administered Medications Discontinued Medications Ioversol (Optiray 320 125ml) 125 ml IV ONCE ONE Stop: 05/25/24 23:21 Last Admin: 05/25/24 23:21 Dose: 118 ml Documented By: HOLGER Medical Decision Making Medical Records Attestation: I reviewed the patient's medical records. Home Medications Current Medication List: was personally reviewed by me Laboratory Data Attestation: I reviewed the patient's lab results. 05/25/24 20:05 05/25/24 20:05 Lab Results 05/25/24 05/25/24 05/26/24 Range/Units 20:05 22:20 00:15 WBC 7.80 (4.8-10.8) K/ul RBC 4.04 L (4.70-6.10) M/uL Hgb 11.5 L (14.0-18.0) g/dl Hct 35.8 L (42.0-52.0) % MCV 88.6 (80.0-100.0) fL MCH 28.5 (25.0-34.0) pg MCHC 32.1 (32.0-36.0) g/dL RDW Std Deviation 52.0 H (36.4-46.3) fL RDW Coeff of Josiah 15.9 H (11.5-14.5) % Plt Count 166 (130-400) K/uL MPV 10.0 (9.4-12.4) fL Immature Gran % (Auto) 2.1 % Neut % (Auto) 52.2 % Lymph % (Auto) 32.2 % Holt % (Auto) 10.8 % Eos % (Auto) 2.2 % Baso % (Auto) 0.5 % Neut # (Auto) 4.08 (1.40-6.50) K/uL Lymph # (Auto) 2.51 (1.20-3.40) K/uL Holt # (Auto) 0.84 H (0.11-0.59) K/uL Eos # (Auto) 0.17 (0.00-0.50) K/uL Baso # (Auto) 0.04 (0.00-0.20) K/uL Immature Gran # (Auto) 0.16 (0.01-0.20) K/uL Sodium 134 L (136-145) mmol/L Potassium 4.1 (3.5-5.1) mmol/L Chloride 105 (98-107) mmol/L Carbon Dioxide 22 (21-32) mmol/L Anion Gap 7 (3-11) BUN 15 (6-23) mg/dl Creatinine 1.30 (0.6-1.4) mg/dl Est Cr Clr Drug Dosing Not Reportable eGFR 60.59 BUN/Creatinine Ratio 11.5 (10-20) Glucose 103 H (70-99(Fasting)) mg/dl Calcium 8.5 L (8.6-10.3) mg/dl Magnesium 2.1 (1.7-2.4) mg/dl Total Bilirubin 0.3 (0.2-1.0) mg/dl AST 22 (13-39) U/L ALT 13 (7-52) U/L Alkaline Phosphatase 62 (34-104) U/L Troponin I High Sens 6.4 (0-20) pg/ml Total Protein 8.3 (6.0-8.3) gm/dl Albumin 3.4 (3.4-5.0) gm/dl Globulin 4.9 H (2.5-4.0) gm/dl Albumin/Globulin Ratio 0.7 L (0.9-2) Lipase 39 (11-82) U/L TSH 3.787 (0.300-4.500) uIu/ml Urine Color Dark Yellow Urine Appearance Clear (Clear) Urine pH 5.5 (4.5-7.5) Ur Specific [place] > 1.045 H (1.000-1.030) Urine Protein 1+ H (Negative) Urine Glucose (UA) 3+ H (Negative) Urine Ketones Trace H (Negative) Urine Blood Trace H (Negative) Urine Nitrite Negative (Negative) Urine Bilirubin Negative (Negative) Urine Urobilinogen Negative (Negative) Ur Leukocyte Esterase Negative (Negative) Urine WBC (Auto) 6-10 H (0-5) /hpf Urine RBC (Auto) 0-2 (0-2) /hpf U Hyaline Cast (Auto) 0-2 (0-2) /lpf U Epithel Cells (Auto) 3-5 H (0-2) /hpf Urine Bacteria (Auto) None Seen (None Seen) Adenovirus (PCR) Not Detected (NotDetected) B. pertussis DNA (PCR) Not Detected (NotDetected) B.parapertussis DNA PCR Not Detected (NotDetected) C. pneumoniae DNA (PCR) Not Detected (NotDetected) Coronavirus OC43 (PCR) Not Detected (NotDetected) Coronavirus HKU1 (PCR) Not Detected (NotDetected) Coronavirus 229E (PCR) Not Detected (NotDetected) SARS-CoV-2 (PCR) Not Detected (NotDetected) Coronavirus NL63 (PCR) Not Detected (NotDetected) Human Metapneumovir PCR Not Detected (NotDetected) Influenza Type A (PCR) Not Detected (NotDetected) Influenza Type B (PCR) Not Detected (NotDetected) M. pneumoniae (PCR) Not Detected (NotDetected) Parainfluenza 1 (PCR) Not Detected (NotDetected) Parainfluenza 2 (PCR) Not Detected (NotDetected) Parainfluenza 3 (PCR) Not Detected (NotDetected) Parainfluenza 4 (PCR) Not Detected (NotDetected) RSV (PCR) Not Detected (NotDetected) Entero/Rhino (PCR) Not Detected (NotDetected) Imaging Data Attestation: I personally reviewed and interpreted this imaging study as follows: Radiologist's Impression: Abdomen/Pelvis CT 05/25/24 22:14 Exam(s): CT ABDOMEN + PELVIS With Contrast IV Amt: 118 ML OPTIRAY 320 EXAM: CT Abdomen and Pelvis With Intravenous Contrast CLINICAL HISTORY: mid abd pain. TECHNIQUE: Axial computed tomography images of the abdomen and pelvis with intravenous contrast. CTDI is 28.14 mGy and DLP is 2437.5 mGy-cm. Automated exposure control was utilized for the study. A dose lowering technique was utilized adhering to the principles of ALARA. CONTRAST: Patient received 118 ML OPTIRAY 320 of IV contrast COMPARISON: To 2024 FINDINGS: Lung bases: Left basilar atelectasis. Coronary artery calcifications. ABDOMEN: Liver: Mildly hypodense/fatty. No mass. Gallbladder and bile ducts: Post cholecystectomy. No ductal dilation. Pancreas: Unremarkable. No mass. No ductal dilation. Spleen: Unremarkable. No splenomegaly. Adrenals: Unremarkable. No mass. Kidneys and ureters: No obstructive uropathy. No obstructing renal or ureteral calculi. No hydronephrosis or hydroureter. Stomach and bowel: No obstruction or ileus. No evidence for diverticulitis. PELVIS: Appendix: No findings to suggest acute appendicitis. Bladder: Partially contracted with diffuse wall thickening. No mass. Reproductive: Prominent 4.7 x 3.9 cm prostate gland. ABDOMEN and PELVIS: Intraperitoneal space: No free air. No free fluid. Bones/joints: No acute fracture. Chronic mild anterior superior L1 vertebral body compression fracture Schmorl's node. Prominent Schmorl's node anterior inferior L2 vertebral body with sclerosis. Degenerative changes of the spine. Soft tissues: Unremarkable. Vasculature: Atherosclerotic vascular calcifications. No abdominal aortic aneurysm. Lymph nodes: Unremarkable. No enlarged lymph nodes. IMPRESSION: No bowel obstruction or ileus. No obstructive uropathy. Partially contracted with nonspecific diffuse wall thickening. Cannot exclude cystitis. Prominent prostate gland. Fatty liver. Status post cholecystectomy. Senescent changes. Electronically signed by: Frederic Zimmerman M.D. 05/26/24 01:15 AM Chest CTA 05/25/24 22:14 Exam(s): CTA CHEST IV Amt: 118 ML OPTIRAY 320 EXAM: CT Angiography Chest With Intravenous Contrast CLINICAL HISTORY: PE. TECHNIQUE: Axial computed tomographic angiography images of the chest with intravenous contrast. CTDI is 28.14 mGy and DLP is 2437.5 mGy-cm. Automated exposure control was utilized for the study. A dose lowering technique was utilized adhering to the principles of ALARA. 3D and MIP reconstructed images were created and reviewed. COMPARISON: 05/23/2024. FINDINGS: Pulmonary arteries: No pulmonary embolism. Aorta: No thoracic aortic aneurysm or dissection. Atherosclerotic vascular calcifications. Lungs: Bilateral dependent atelectasis greatest in the lingula and left lower lobe. Pleural space: No pleural effusion. No pneumothorax. Heart: No cardiomegaly. No pericardial effusion. No evidence of RV dysfunction. Coronary artery calcifications. Bones/joints: No acute fracture. Old bilateral anterior rib fractures. Degenerative changes of the spine. Soft tissues: Unremarkable. Lymph nodes: Unremarkable. No enlarged lymph nodes. IMPRESSION: No pulmonary embolism. No aortic aneurysm or dissection. Bilateral dependent atelectasis. Coronary artery calcifications. Electronically signed by: Frederic Zimmerman M.D. 05/26/24 01:06 AM MDM Narrative Prior records/ancillary studies reviewed and summarized above. Nursing notes reviewed. Additional history obtained from healthcare representative. The patient's history was concerning for abdominal pain and low O2 sats. Differential diagnosis: Etiologies such as metabolic, infection, hypo/hyperglycemia, electrolyte abnormalities, cardiac sources, intracerebral event, toxicologic, neurologic, as well as others were entertained. Physical examination: As above. ER treatment provided: IV Lock An order was placed for continuous cardiac monitoring. The monitor shows a rate of 60-100 with a sinus rhythm per my interpretation. Fluids, Rocephin for possible UTI History is also obtained from the healthcare representative who was present. On reassessment the patient felt better. Diagnostics interpretation by me: ECG: Ordered for weakness EKG: Normal sinus, Q waves in inferior leads, no acute ST-T wave changes. Impression normal sinus rhythm independently interpreted by myself The labs Independently Interpreted by myself revealed no worrisome leukocytosis, negative BioFire Possible UTI Imaging studies: Imaging was reviewed and read by radiology Consultation: A consultation was placed with the hospitalist. The case was discussed and diagnostics were reviewed. The patient was evaluated in the ER for further treatment. Exam and history seem consistent with abdominal pain who was hypoxic on room air. Medicine was consulted case discussed. Patient was admitted to the medical service. prop attendant is agreeable. Patient was given antibiotics for possible UTI. Prior culture was reviewed. By the evaluation outlined above emergent etiologies such as electrolyte abnormalities, cardiac sources, intracerebral event, toxologic, neurologic, abnormalities blood glucose, metabolic, as well as others were deemed relatively unlikely. The pt/healthcare representative informed about the findings as listed above. All questions were answered and pleased with the treatment. The chart was completed utilizing [employer] voice recognition software. Grammatical errors, random word insertions, pronoun errors, and incomplete sentences are an occassional consequence of this system due to software limitations, ambient noise, and hardware issues. Any formal questions or concerns about the content, text, or information contained within the body of this dictation should be directly addressed to the physician legal executive assistant for clarification. Impression & Plan Abdominal pain in male, Hypoxic, Acute UTI Discharge Plan Visit Data Chief Complaint: Abdominal Pain Stated Complaint: AB PAIN SOB ED Provider: Edgar Faulkner ED Midlevel Provider: Inna Nichole Discharge Problem: Abdominal pain in male, Hypoxic, Acute UTI Patient Disposition: Being Evaluated by Hospitalist Condition: Good Forms Stand Alone Forms: My [facility] Prescriptions Prescriptions: No Action sennosides [senna] 8.6 mg tablet 8.6 mg PO BID venlafaxine 37.5 mg capsule,extended release 24hr 37.5 mg PO DAILY Rx Instructions: Take 37.5mg w/ 75mg to equal 112.5 by mouth daily venlafaxine 75 mg capsule,extended release 24hr 75 mg PO DAILY Rx Instructions: Take 37.5mg w/ 75mg to equal 112.5 by mouth daily sucralfate 1 gram tablet 1 g PO DAILY risperidone 0.25 mg tablet 0.25 mg PO DAILY doxepin 10 mg capsule 10 mg PO HS levothyroxine 100 mcg tablet 100 mcg PO DAILY lisinopril 10 mg tablet 10 mg PO DAILY divalproex 500 mg tablet extended release 24 hr 1,500 mg PO DAILY aspirin 81 mg tablet,chewable 81 mg PO DAILY buspirone 15 mg tablet 15 mg PO BID aripiprazole 15 mg tablet 15 mg PO DAILY bupropion HCl 300 mg tablet extended release 24 hr 300 mg PO DAILY quetiapine 50 mg tablet 50 mg PO TID Rx Instructions: thrice daily at 8am, 2pm and 8pm multivitamin with folic acid [Daily-Ezekiel (with folic acid)] 400 mcg tablet 1 tab PO DAILY Jardiance 25 mg tablet 25 mg PO DAILY carvedilol [Coreg] 25 mg Tablet 25 mg PO BID Rx Instructions: must administer with a meal/food atorvastatin 20 mg tablet 20 mg PO DAILY omeprazole 40 mg capsule,delayed release(DR/EC) 40 mg PO DAILY levofloxacin 500 mg tablet 500 mg PO DAILY 5 Days Qty: 5 0RF amlodipine 10 mg tablet 10 mg PO DAILY Qty: 30 0RF Referrals Referrals: Tim Swenson, [Primary Care Provider] -
[2024-05-26 00:57] LABS: Appearance Urine Clear (Clear); Bacteria Urine Automated None Seen (None Seen); Bilirubin Urine Negative (Negative); Blood Urine Trace (Negative); Cast Urine Automated 0-2 /lpf (0-2); Color Urine Dark Yellow; Glucose Urine UA 3+ (Negative); Ketones Urine Trace (Negative); Leukocyte Esterase Urine Negative (Negative); Nitrite Urine Negative (Negative); Protein Urine 1+ (Negative); RBC Urine Automated 0-2 /hpf (0-2); Specific Gravity Urine > 1.045 (1.000-1.030); Urobilinogen Urine Negative (Negative); pH Urine 5.5 (4.5-7.5)
--- NOTE | 2024-05-26 01:07 | CT Scan Report ---
Exam(s): CTA CHEST IV Amt: 118 ML OPTIRAY 320 EXAM: CT Angiography Chest With Intravenous Contrast CLINICAL HISTORY: PE. TECHNIQUE: Axial computed tomographic angiography images of the chest with intravenous contrast. CTDI is 28.14 mGy and DLP is 2437.5 mGy-cm. Automated exposure control was utilized for the study. A dose lowering technique was utilized adhering to the principles of ALARA. 3D and MIP reconstructed images were created and reviewed. COMPARISON: 05/23/2024. FINDINGS: Pulmonary arteries: No pulmonary embolism. Aorta: No thoracic aortic aneurysm or dissection. Atherosclerotic vascular calcifications. Lungs: Bilateral dependent atelectasis greatest in the lingula and left lower lobe. Pleural space: No pleural effusion. No pneumothorax. Heart: No cardiomegaly. No pericardial effusion. No evidence of RV dysfunction. Coronary artery calcifications. Bones/joints: No acute fracture. Old bilateral anterior rib fractures. Degenerative changes of the spine. Soft tissues: Unremarkable. Lymph nodes: Unremarkable. No enlarged lymph nodes. IMPRESSION: No pulmonary embolism. No aortic aneurysm or dissection. Bilateral dependent atelectasis. Coronary artery calcifications. Electronically signed by: Frederic Zimmerman M.D. 05/26/24 01:06 AM
--- NOTE | 2024-05-26 01:17 | CT Scan Report ---
Exam(s): CT ABDOMEN + PELVIS With Contrast IV Amt: 118 ML OPTIRAY 320 EXAM: CT Abdomen and Pelvis With Intravenous Contrast CLINICAL HISTORY: mid abd pain. TECHNIQUE: Axial computed tomography images of the abdomen and pelvis with intravenous contrast. CTDI is 28.14 mGy and DLP is 2437.5 mGy-cm. Automated exposure control was utilized for the study. A dose lowering technique was utilized adhering to the principles of ALARA. CONTRAST: Patient received 118 ML OPTIRAY 320 of IV contrast COMPARISON: To 2024 FINDINGS: Lung bases: Left basilar atelectasis. Coronary artery calcifications. ABDOMEN: Liver: Mildly hypodense/fatty. No mass. Gallbladder and bile ducts: Post cholecystectomy. No ductal dilation. Pancreas: Unremarkable. No mass. No ductal dilation. Spleen: Unremarkable. No splenomegaly. Adrenals: Unremarkable. No mass. Kidneys and ureters: No obstructive uropathy. No obstructing renal or ureteral calculi. No hydronephrosis or hydroureter. Stomach and bowel: No obstruction or ileus. No evidence for diverticulitis. PELVIS: Appendix: No findings to suggest acute appendicitis. Bladder: Partially contracted with diffuse wall thickening. No mass. Reproductive: Prominent 4.7 x 3.9 cm prostate gland. ABDOMEN and PELVIS: Intraperitoneal space: No free air. No free fluid. Bones/joints: No acute fracture. Chronic mild anterior superior L1 vertebral body compression fracture Schmorl's node. Prominent Schmorl's node anterior inferior L2 vertebral body with sclerosis. Degenerative changes of the spine. Soft tissues: Unremarkable. Vasculature: Atherosclerotic vascular calcifications. No abdominal aortic aneurysm. Lymph nodes: Unremarkable. No enlarged lymph nodes. IMPRESSION: No bowel obstruction or ileus. No obstructive uropathy. Partially contracted with nonspecific diffuse wall thickening. Cannot exclude cystitis. Prominent prostate gland. Fatty liver. Status post cholecystectomy. Senescent changes. Electronically signed by: Frederic Zimmerman M.D. 05/26/24 01:15 AM
[2024-05-26] MEDS: cefTRIAXone SODIUM 2,000 MG/50 ML BAG IV STA (01:57)
--- NOTE | 2024-05-26 05:31 | History & Physical Report ---
Date of Service May 26, 2024 Assessment & Plan (1) Hypoxia: Plan: 68-year-old male comes from [facility] with past medical significant for dyslipidemia, type 2 diabetes, history of CAD, history of systolic and diastolic CHF EF 45% echo 2018 and EF 50 to 50% on echo done in 2022, history of spina bifida, history of mild intellectual disability, impulsive disorder, generalized anxiety disorder, depression, hypothyroidism, GERD, BPH, history of prior hepatitis B infection, CKD was brought in because of abdominal pain and hypoxia. Patient was recently in the hospital for transient lethargy, metabolic encephalopathy and possible UTI and bacteremia. He was discharged yesterday on Levaquin. Patient seems to be requiring oxygen and also complained abdominal pain and was brought in here. CTA chest and CT abdomen pelvis unremarkable. He was saturating 87% on room air and requiring oxygen in the ER. Currently alert and awake. Denies any chest pain. Complains of some abdominal pain. Denies cough. No runny nose or sore throat. Denies shortness of breath. Somewhat difficult to get history from the patient. Currently hemodynamics are okay. Hypoxia Requiring oxygen Previously was requiring oxygen during nighttime CTA chest unremarkable Will monitor Recent UTI UA looks okay Will continue Levaquin which he was discharged on Abdominal pain CT abdomen pelvis looks okay Liquid diet for now Hypertension on coreq, lisinopril,and amlodipine will monitor Diabetes hold home med ISS Will monitor Right ICA stenosis On aspirin and statin Nocturnal hypoxemia Noncompliant with oxygen use Will monitor Needs sleep study Chronic systolic and diastolic CHF EF 50 to 50% on echo in 2022 seems currently not on lasix will monitor Hypothyroidism On Synthyroid GERD Omeprazole History of depression Generalized anxiety disorder Compulsive disorder and mild intellectual disability On venlafaxine, divalproex, buspirone, bupropion, Abilify and doxepin Seroquel and risperidone Will monitor. History of CAD On aspirin and beta-kenyatta History of BPH Monitor for urinary retention History of spina bifida DVT prophylaxis Heparin subcu Disposition MedSurg with telemetry History of Present Illness Chief Complaint: Abdominal pain and hypoxia Primary Care Provider: Tim Swenson DO 68-year-old male comes from [facility] with past medical significant for dyslipidemia, type 2 diabetes, history of CAD, history of systolic and diastolic CHF EF 45% echo 2018 and EF 50 to 50% on echo done in 2022, history of spina bifida, history of mild intellectual disability, impulsive disorder, generalized anxiety disorder, depression, hypothyroidism, GERD, BPH, history of prior hepatitis B infection, CKD was brought in because of abdominal pain and hypoxia. Patient was recently in the hospital for transient lethargy, metabolic encephalopathy and possible UTI and bacteremia. He was discharged yesterday on Levaquin. Patient seems to be requiring oxygen and also complained abdominal pain and was brought in here. CTA chest and CT abdomen pelvis unremarkable. He was saturating 87% on room air and requiring oxygen in the ER. Currently alert and awake. Denies any chest pain. Complains of some abdominal pain. Denies cough. No runny nose or sore throat. Denies shortness of breath. Somewhat difficult to get history from the patient. Currently hemodynamics are okay. Past medical history. As mentioned above Past surgical history. Bilateral alveloplasty. Colonoscopy. EGD. EGD with endoscopic ultrasound. Surgical extraction of ruptured tooth. Social history. No smoking. No alcoholism. No drug use. Family history. Mother had diabetes. Heart disorder. Father had heart disorder. Maternal grandfather had stroke. Maternal grandmother had stroke Allergies Allergy/AdvReac Type Severity Reaction Status Date / Time terbinafine Allergy Mild RASH ON Verified 05/23/24 15:12 ARM? Penicillins Allergy Unknown Unknown Unverified 05/23/24 15:12 Home Medications Medication Instructions Recorded Confirmed Type aripiprazole 15 mg tablet 15 mg PO DAILY 05/13/24 05/25/24 History aspirin 81 mg chewable tablet 81 mg PO DAILY 05/13/24 05/25/24 History bupropion HCl 300 mg 24 hr tablet, 300 mg PO DAILY 05/13/24 05/25/24 History extended release buspirone 15 mg tablet 15 mg PO BID 05/13/24 05/25/24 History carvedilol 25 mg tablet (Coreg) 25 mg PO BID 05/13/24 05/25/24 History divalproex 500 mg tablet,extended 1,500 mg PO DAILY 05/13/24 05/25/24 History release 24 hr doxepin 10 mg capsule 10 mg PO HS 05/13/24 05/25/24 History empagliflozin 25 mg tablet 25 mg PO DAILY 05/13/24 05/25/24 History (Jardiance) levothyroxine 100 mcg tablet 100 mcg PO DAILY 05/13/24 05/25/24 History lisinopril 10 mg tablet 10 mg PO DAILY 05/13/24 05/25/24 History multivitamin with folic acid 400 1 tab PO DAILY 05/13/24 05/25/24 History mcg tablet (Daily-Ezekiel (with folic acid)) quetiapine 50 mg tablet 50 mg PO TID 05/13/24 05/25/24 History risperidone 0.25 mg tablet 0.25 mg PO DAILY 05/13/24 05/25/24 History sennosides 8.6 mg tablet (senna) 8.6 mg PO BID 05/13/24 05/25/24 History sucralfate 1 gram tablet 1 g PO DAILY 05/13/24 05/25/24 History venlafaxine 37.5 mg 37.5 mg PO DAILY 05/13/24 05/25/24 History capsule,extended release 24 hr venlafaxine 75 mg capsule,extended 75 mg PO DAILY 05/13/24 05/25/24 History release 24 hr atorvastatin 20 mg tablet 20 mg PO DAILY 05/23/24 05/25/24 History omeprazole 40 mg capsule,delayed 40 mg PO DAILY 05/23/24 05/25/24 History release amlodipine 10 mg tablet 10 mg PO DAILY #30 tabs 05/25/24 05/25/24 Rx levofloxacin 500 mg tablet 500 mg PO DAILY 5 days #5 tabs 05/25/24 05/25/24 Rx Past Med/Surg History Problem List (Updated 05/26/24 @ 06:21 by Background Timoteo) Acute UTI (Acute) Hypoxic (Acute) Abdominal pain in male (Acute) AMS (altered mental status) (Acute) Hypoxia (Acute) Enteritis due to Norovirus (Acute) Acute dehydration (Acute) HESHAM (acute kidney injury) (Acute) Nausea, vomiting, and diarrhea (Acute) Internal carotid artery stenosis (Acute) Slurred speech (Acute) Hypoglycemia (Acute) Nocturnal hypoxemia Acute dyspnea (Acute) Severe sepsis Acute hyponatremia (Acute) Elevated lactic acid level (Acute) Leukocytosis (Acute) Dehydration (Acute) HESHAM (acute kidney injury) (Acute) Hypotension (Acute) Elevated troponin (Acute) Sepsis (Acute) Back pain Closed L2 vertebral fracture (Acute) Pulmonary edema (Acute) Pneumonitis (Acute) Lactic acidemia (Acute) Contrast dye induced nephropathy Acute renal insufficiency Elevated troponin Chronic heart failure with reduced ejection fraction and diastolic dysfunction Hypertension (Acute) Intellectual disability (Acute) Congestive heart failure (CHF) Aspiration pneumonia Psychiatric disorder Intermittent explosive disorder Anxiety disorder, unspecified Depression Medical History (Updated 05/26/24 @ 06:21 by Farrah Mahmood) Vocal cord paralysis, unilateral complete GERD (gastroesophageal reflux disease) Myocardial infarction Remote hx per records > medically managed Coronary artery disease Thrombocytopenia Chronic thrombocytopenia, baseline platelets low 100s per chart review Obesity Cerebral palsy Moderate intellectual disabilities sister/POA -ASHLEY IRENE [phone]-[facility] 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 SIGNS CONSENTS Anemia MRSA (methicillin resistant Staphylococcus aureus) carrier Dysphagia Keratoconus Cataract Arthritis Spina bifida Hypothyroidism Diabetes mellitus, type 2 Chronic ischemic heart disease Hyperlipidemia Hypertension Intermittent explosive disorder Impulse control disorder Severe anxiety Combative behavior Fall Fall risk Surgical History (Updated 05/23/24 @ 16:30 by Diane Stover PA-C) History of laparoscopic cholecystectomy Laparoscopic cholecystectomy [address] Wolff H/O tooth extraction History of esophagogastroduodenoscopy (EGD) History of colonoscopy EGD/colonoscopy (12/07/19): MAC sedation at [facility] History of bronchoscopy Flexible bronchoscopy with BAL (02/04/18): Grade view 1, Elective glidescope #4, ETT 8.5 at [facility] (done for aspiration PNA) Family History Other No significant family history Social History Smoking Status: Unknown if ever smoked Second Hand Exposure: No; Do You Dip or Chew Tobacco: No; Hx Alcohol Use: No Hx Substance Use: No Preferred Language: Trinidadian Communication Ability: Effective Communication Ability Comment: PT IS INTELLECTUALLY IMPAIRED Test Tech Required: No Beliefs That Will Affect Care: None marital status: Single Current Living Situation: Other Current Living Situation Comment: Radhika Pope current occupational status: disabled Other Information That Helps Us Care for You: No Feels Safe at Home: Yes Safety Concerns: Feels Safe At This Time Assistive Devices: Oxygen - at Night and Wheelchair Review of Systems Review of Systems: Unobtainable due to mental health condition Physical Exam Physical Exam: General-Not in acute distress Head- atraumatic Eyes- PERRL. ENT- oropharynx clear Neck- supple, no JVD. Lungs- clear to auscultation no wheezing or crackles Heart- regular rhythm; no murmur, no gallop. Abdomen- normal bowel sounds, soft, mild diffuse discomfort, no distension Extremities- no pretibial edema, no erythema seen Neuro- alert, and awake; PERRL, no facial palsy; no dysarthria; Results & Data Results & Data Vital Signs (Past 12 Hours) Vital Signs Temp Pulse Pulse Resp BP Pulse Ox O2 Del Method 05/26/24 04:21 74 22 91 05/26/24 04:12 76 21 94 05/26/24 04:00 Nasal Cannula 05/26/24 03:57 74 05/26/24 03:50 146/94 H 05/26/24 03:50 146/94 H 05/26/24 03:42 72 17 90 05/26/24 03:33 71 21 92 05/26/24 03:21 70 23 95 05/26/24 03:12 73 16 96 05/26/24 03:09 70 16 97 05/26/24 03:01 170/75 H 05/26/24 03:01 170/75 H 05/26/24 02:41 Nasal Cannula 05/26/24 02:39 72 16 92 05/26/24 02:36 74 24 91 05/26/24 02:24 68 18 91 05/26/24 02:12 71 19 05/26/24 02:03 69 20 96 05/26/24 02:00 150/81 H 05/26/24 02:00 150/81 H 05/26/24 02:00 150/81 H 05/26/24 02:00 150/81 H 05/26/24 02:00 90 Nasal Cannula 05/26/24 01:45 70 19 95 05/26/24 01:30 68 17 94 05/26/24 01:12 66 19 92 05/26/24 01:00 170/95 H 05/26/24 01:00 67 17 93 05/26/24 00:51 67 23 91 05/26/24 00:31 173/80 H 05/26/24 00:30 71 18 97 05/26/24 00:14 68 05/26/24 00:12 67 21 92 05/26/24 00:00 134/74 05/26/24 00:00 134/74 05/25/24 23:48 65 19 91 05/25/24 23:33 67 23 87 L 05/25/24 23:30 140/66 05/25/24 23:30 140/66 05/25/24 23:27 67 21 05/25/24 23:06 70 21 94 05/25/24 23:00 179/90 H 05/25/24 22:57 70 19 94 05/25/24 22:45 68 20 92 05/25/24 22:30 176/85 H 05/25/24 22:30 69 21 92 05/25/24 22:27 69 19 92 05/25/24 22:12 68 17 93 05/25/24 22:03 70 19 94 Nasal Cannula 05/25/24 22:01 160/69 H 05/25/24 21:54 68 20 93 05/25/24 21:42 68 20 94 05/25/24 21:30 152/85 H 05/25/24 21:30 152/85 H 05/25/24 21:30 68 22 93 05/25/24 21:27 68 17 94 05/25/24 21:01 148/66 H 05/25/24 21:00 70 18 93 05/25/24 20:51 66 16 93 05/25/24 20:48 66 21 94 05/25/24 20:39 67 19 94 Nasal Cannula 05/25/24 20:39 67 05/25/24 20:14 93 Nasal Cannula 05/25/24 20:04 92 Nasal Cannula 05/25/24 20:03 36.9 C 72 19 118/86 89 L Room Air O2 Flow Rate 05/26/24 04:21 05/26/24 04:12 05/26/24 04:00 05/26/24 03:57 05/26/24 03:50 05/26/24 03:50 05/26/24 03:42 05/26/24 03:33 05/26/24 03:21 05/26/24 03:12 05/26/24 03:09 05/26/24 03:01 05/26/24 03:01 05/26/24 02:41 5 05/26/24 02:39 05/26/24 02:36 05/26/24 02:24 05/26/24 02:12 05/26/24 02:03 05/26/24 02:00 05/26/24 02:00 05/26/24 02:00 05/26/24 02:00 05/26/24 02:00 5 05/26/24 01:45 05/26/24 01:30 05/26/24 01:12 05/26/24 01:00 05/26/24 01:00 05/26/24 00:51 05/26/24 00:31 05/26/24 00:30 05/26/24 00:14 05/26/24 00:12 05/26/24 00:00 05/26/24 00:00 05/25/24 23:48 05/25/24 23:33 05/25/24 23:30 05/25/24 23:30 05/25/24 23:27 05/25/24 23:06 05/25/24 23:00 05/25/24 22:57 05/25/24 22:45 05/25/24 22:30 05/25/24 22:30 05/25/24 22:27 05/25/24 22:12 05/25/24 22:03 2 05/25/24 22:01 05/25/24 21:54 05/25/24 21:42 05/25/24 21:30 05/25/24 21:30 05/25/24 21:30 05/25/24 21:27 05/25/24 21:01 05/25/24 21:00 05/25/24 20:51 05/25/24 20:48 05/25/24 20:39 3 05/25/24 20:39 05/25/24 20:14 2 05/25/24 20:04 2 05/25/24 20:03 Diagnostic Findings Laboratory Results WBC 7.80 K/ul (4.8-10.8) 05/25/24 20:05 RBC 4.04 M/uL (4.70-6.10) L 05/25/24 20:05 Hgb 11.5 g/dl (14.0-18.0) L 05/25/24 20:05 Hct 35.8 % (42.0-52.0) L 05/25/24 20:05 MCV 88.6 fL (80.0-100.0) 05/25/24 20:05 MCH 28.5 pg (25.0-34.0) 05/25/24 20:05 MCHC 32.1 g/dL (32.0-36.0) 05/25/24 20:05 RDW Std Deviation 52.0 fL (36.4-46.3) H 05/25/24 20:05 RDW Coeff of Josiah 15.9 % (11.5-14.5) H 05/25/24 20:05 Plt Count 166 K/uL (130-400) 05/25/24 20:05 MPV 10.0 fL (9.4-12.4) 05/25/24 20:05 Immature Gran % (Auto) 2.1 % 05/25/24 20:05 Neut % (Auto) 52.2 % 05/25/24 20:05 Lymph % (Auto) 32.2 % 05/25/24 20:05 [place] % (Auto) 10.8 % 05/25/24 20:05 Eos % (Auto) 2.2 % 05/25/24 20:05 Baso % (Auto) 0.5 % 05/25/24 20:05 Neut # (Auto) 4.08 K/uL (1.40-6.50) 05/25/24 20:05 Lymph # (Auto) 2.51 K/uL (1.20-3.40) 05/25/24 20:05 [place] # (Auto) 0.84 K/uL (0.11-0.59) H 05/25/24 20:05 Eos # (Auto) 0.17 K/uL (0.00-0.50) 05/25/24 20:05 Baso # (Auto) 0.04 K/uL (0.00-0.20) 05/25/24 20:05 Immature Gran # (Auto) 0.16 K/uL (0.01-0.20) 05/25/24 20:05 Sodium 134 mmol/L (136-145) L 05/25/24 20:05 Potassium 4.1 mmol/L (3.5-5.1) 05/25/24 20:05 Chloride 105 mmol/L (98-107) 05/25/24 20:05 Carbon Dioxide 22 mmol/L (21-32) 05/25/24 20:05 Anion Gap 7 (3-11) 05/25/24 20:05 BUN 15 mg/dl (6-23) 05/25/24 20:05 Creatinine 1.30 mg/dl (0.6-1.4) 05/25/24 20:05 Est Cr Clr Drug Dosing Not Reportable 05/25/24 20:05 eGFR 60.59 05/25/24 20:05 BUN/Creatinine Ratio 11.5 (10-20) 05/25/24 20:05 Glucose 103 mg/dl (70-99(Fasting)) H 05/25/24 20:05 Calcium 8.5 mg/dl (8.6-10.3) L 05/25/24 20:05 Magnesium 2.1 mg/dl (1.7-2.4) 05/25/24 20:05 Total Bilirubin 0.3 mg/dl (0.2-1.0) 05/25/24 20:05 AST 22 U/L (13-39) 05/25/24 20:05 ALT 13 U/L (7-52) 05/25/24 20:05 Alkaline Phosphatase 62 U/L (34-104) 05/25/24 20:05 Troponin I High Sens 6.4 pg/ml (0-20) 05/25/24 20:05 Total Protein 8.3 gm/dl (6.0-8.3) 05/25/24 20:05 Albumin 3.4 gm/dl (3.4-5.0) 05/25/24 20:05 Globulin 4.9 gm/dl (2.5-4.0) H 05/25/24 20:05 Albumin/Globulin Ratio 0.7 (0.9-2) L 05/25/24 20:05 Lipase 39 U/L (11-82) 05/25/24 20:05 TSH 3.787 uIu/ml (0.300-4.500) 05/25/24 20:05 Urine Color Dark Yellow 05/26/24 00:15 Urine Appearance Clear (Clear) 05/26/24 00:15 Urine pH 5.5 (4.5-7.5) 05/26/24 00:15 Ur Specific [place] > 1.045 (1.000-1.030) H 05/26/24 00:15 Urine Protein 1+ (Negative) H 05/26/24 00:15 Urine Glucose (UA) 3+ (Negative) H 05/26/24 00:15 Urine Ketones Trace (Negative) H 05/26/24 00:15 Urine Blood Trace (Negative) H 05/26/24 00:15 Urine Nitrite Negative (Negative) 05/26/24 00:15 Urine Bilirubin Negative (Negative) 05/26/24 00:15 Urine Urobilinogen Negative (Negative) 05/26/24 00:15 Ur Leukocyte Esterase Negative (Negative) 05/26/24 00:15 Urine WBC (Auto) 6-10 /hpf (0-5) H 05/26/24 00:15 Urine RBC (Auto) 0-2 /hpf (0-2) 05/26/24 00:15 U Hyaline Cast (Auto) 0-2 /lpf (0-2) 05/26/24 00:15 U Epithel Cells (Auto) 3-5 /hpf (0-2) H 05/26/24 00:15 Urine Bacteria (Auto) None Seen (None Seen) 05/26/24 00:15 Adenovirus (PCR) Not Detected (NotDetected) 05/25/24 22:20 B. pertussis DNA (PCR) Not Detected (NotDetected) 05/25/24 22:20 B.parapertussis DNA PCR Not Detected (NotDetected) 05/25/24 22:20 C. pneumoniae DNA (PCR) Not Detected (NotDetected) 05/25/24 22:20 Coronavirus OC43 (PCR) Not Detected (NotDetected) 05/25/24 22:20 Coronavirus HKU1 (PCR) Not Detected (NotDetected) 05/25/24 22:20 Coronavirus 229E (PCR) Not Detected (NotDetected) 05/25/24 22:20 SARS-CoV-2 (PCR) Not Detected (NotDetected) 05/25/24 22:20 Coronavirus NL63 (PCR) Not Detected (NotDetected) 05/25/24 22:20 Human Metapneumovir PCR Not Detected (NotDetected) 05/25/24 22:20 Influenza Type A (PCR) Not Detected (NotDetected) 05/25/24 22:20 Influenza Type B (PCR) Not Detected (NotDetected) 05/25/24 22:20 M. pneumoniae (PCR) Not Detected (NotDetected) 05/25/24 22:20 Parainfluenza 1 (PCR) Not Detected (NotDetected) 05/25/24 22:20 Parainfluenza 2 (PCR) Not Detected (NotDetected) 05/25/24 22:20 Parainfluenza 3 (PCR) Not Detected (NotDetected) 05/25/24 22:20 Parainfluenza 4 (PCR) Not Detected (NotDetected) 05/25/24 22:20 RSV (PCR) Not Detected (NotDetected) 05/25/24 22:20 Entero/Rhino (PCR) Not Detected (NotDetected) 05/25/24 22:20 Impressions Abdomen/Pelvis CT 05/25/24 22:14 Exam(s): CT ABDOMEN + PELVIS With Contrast IV Amt: 118 ML OPTIRAY 320 EXAM: CT Abdomen and Pelvis With Intravenous Contrast CLINICAL HISTORY: mid abd pain. TECHNIQUE: Axial computed tomography images of the abdomen and pelvis with intravenous contrast. CTDI is 28.14 mGy and DLP is 2437.5 mGy-cm. Automated exposure control was utilized for the study. A dose lowering technique was utilized adhering to the principles of ALARA. CONTRAST: Patient received 118 ML OPTIRAY 320 of IV contrast COMPARISON: To 2024 FINDINGS: Lung bases: Left basilar atelectasis. Coronary artery calcifications. ABDOMEN: Liver: Mildly hypodense/fatty. No mass. Gallbladder and bile ducts: Post cholecystectomy. No ductal dilation. Pancreas: Unremarkable. No mass. No ductal dilation. Spleen: Unremarkable. No splenomegaly. Adrenals: Unremarkable. No mass. Kidneys and ureters: No obstructive uropathy. No obstructing renal or ureteral calculi. No hydronephrosis or hydroureter. Stomach and bowel: No obstruction or ileus. No evidence for diverticulitis. PELVIS: Appendix: No findings to suggest acute appendicitis. Bladder: Partially contracted with diffuse wall thickening. No mass. Reproductive: Prominent 4.7 x 3.9 cm prostate gland. ABDOMEN and PELVIS: Intraperitoneal space: No free air. No free fluid. Bones/joints: No acute fracture. Chronic mild anterior superior L1 vertebral body compression fracture Schmorl's node. Prominent Schmorl's node anterior inferior L2 vertebral body with sclerosis. Degenerative changes of the spine. Soft tissues: Unremarkable. Vasculature: Atherosclerotic vascular calcifications. No abdominal aortic aneurysm. Lymph nodes: Unremarkable. No enlarged lymph nodes. IMPRESSION: No bowel obstruction or ileus. No obstructive uropathy. Partially contracted with nonspecific diffuse wall thickening. Cannot exclude cystitis. Prominent prostate gland. Fatty liver. Status post cholecystectomy. Senescent changes. Electronically signed by: Frederic Zimmerman M.D. 05/26/24 01:15 AM Chest CTA 05/25/24 22:14 Exam(s): CTA CHEST IV Amt: 118 ML OPTIRAY 320 EXAM: CT Angiography Chest With Intravenous Contrast CLINICAL HISTORY: PE. TECHNIQUE: Axial computed tomographic angiography images of the chest with intravenous contrast. CTDI is 28.14 mGy and DLP is 2437.5 mGy-cm. Automated exposure control was utilized for the study. A dose lowering technique was utilized adhering to the principles of ALARA. 3D and MIP reconstructed images were created and reviewed. COMPARISON: 05/23/2024. FINDINGS: Pulmonary arteries: No pulmonary embolism. Aorta: No thoracic aortic aneurysm or dissection. Atherosclerotic vascular calcifications. Lungs: Bilateral dependent atelectasis greatest in the lingula and left lower lobe. Pleural space: No pleural effusion. No pneumothorax. Heart: No cardiomegaly. No pericardial effusion. No evidence of RV dysfunction. Coronary artery calcifications. Bones/joints: No acute fracture. Old bilateral anterior rib fractures. Degenerative changes of the spine. Soft tissues: Unremarkable. Lymph nodes: Unremarkable. No enlarged lymph nodes. IMPRESSION: No pulmonary embolism. No aortic aneurysm or dissection. Bilateral dependent atelectasis. Coronary artery calcifications. Electronically signed by: Frederic Zimmerman M.D. 05/26/24 01:06 AM ECG Additional Comments: ECG.. Normal sinus rhythm rate of 71. No significant change was found. Code Status & VTE Plan VTE Prophylaxis Plan VTE Prophylaxis will be ordered: Yes
[2024-05-26] MEDS ORDERED: DEXTROSE 50% 50 ML SYRINGE IV PRN (06:27)
[2024-05-26] MEDS ORDERED: CARBOHYDRATES FOR HYPOGLYCEMIA PO PRN (06:27)
[2024-05-26] MEDS ORDERED: POLYETHYLENE (MIRALAX) 17 GM PACK PO PRN (06:27)
[2024-05-26] MEDS ORDERED: GLUCOSE 10 TAB/TUBE PO PRN (06:27)
[2024-05-26] MEDS ORDERED: GLUCAGON FOR INJ 1 MG VIAL SQ PRN (06:27)
[2024-05-26] MEDS ORDERED: GLUCOSE 40% GEL 15 GM TUBE PO PRN (06:27)
[2024-05-26] MEDS ORDERED: NITROGLYCERIN SL 0.4 MG/TAB TAB SL PRN (06:27)
[2024-05-26] MEDS: ENOXAPARIN INJ 40 MG/0.4 ML SYR SQ SCH (06:51)
[2024-05-26 07:43] LABS: Basophils # (auto) 0.04 K/uL (0.00-0.20); Basophils % (auto) 0.5 %; Eosinophils # (auto) 0.11 K/uL (0.00-0.50); Eosinophils % (auto) 1.5 %; Hematocrit (blood only) 34.6 % (42.0-52.0); Immature Granulocytes # (auto) 0.15 K/uL (0.01-0.20); Lymphocytes # (auto) 1.89 K/uL (1.20-3.40); Lymphocytes % (auto) 25.5 %; Mean Corpuscular Hemoglobin 28.2 pg (25.0-34.0); Mean Corpuscular Hgb Conc 31.8 g/dL (32.0-36.0); Mean Corpuscular Volume 88.7 fL (80.0-100.0); Mean Platelet Volume 10.5 fL (9.4-12.4); Monocytes # (auto) 0.79 K/uL (0.11-0.59); Monocytes % (auto) 10.6 %; Neutrophils # (auto) 4.44 K/uL (1.40-6.50); Neutrophils % (auto) 59.9 %; Platelet Count 168 K/uL (130-400); RDW Coefficient of Variation 16.2 % (11.5-14.5); RDW Standard Deviation 52.9 fL (36.4-46.3); White Blood Count 7.42 K/ul (4.8-10.8)
[2024-05-26 08:00] LABS: BUN Creatinine Ratio 12.6 (10-20); Calcium 8.3 mg/dl (8.6-10.3); Creatinine Clr Calc Pharmacy 75.4 ml/min; Potassium 4.1 mmol/L (3.5-5.1)
[2024-05-26] MEDS: MULTIVITAMIN TAB PO SCH (08:40)
[2024-05-26] MEDS: busPIRone 15 MG TAB PO SCH (08:40)
[2024-05-26] MEDS: SUCRALFATE 1 GM TAB PO SCH (08:40)
[2024-05-26] MEDS: PANTOprazole 40 MG TAB PO SCH (08:40)
[2024-05-26] MEDS: ATORVASTATIN 20 MG TAB PO SCH (08:41)
[2024-05-26] MEDS: VENLAFAXINE HCL XR 37.5 MG CAPXR PO SCH (08:41)
[2024-05-26] MEDS: QUEtiapine FUMARATE 25 MG TABLET PO SCH (08:41)
[2024-05-26] MEDS: carvediloL 25 MG TAB PO SCH (08:41)
[2024-05-26] MEDS: amLODIPine BESYLATE 5 MG TAB PO SCH (08:41)
[2024-05-26] MEDS: VENLAFAXINE HCL XR 75 MG CAPXR PO SCH (08:42)
[2024-05-26] MEDS: LEVOTHYROXINE SODIUM 100 MCG TABLET PO SCH (08:42)
[2024-05-26] MEDS: ASPIRIN 81 MG CHEW PO SCH (08:42)
[2024-05-26] MEDS: buPROPion XL 300 MG TABCR PO SCH (08:42)
[2024-05-26] MEDS: lisinopril 10 MG TAB PO SCH (08:42)
[2024-05-26] MEDS: ARIPiprazole 15 MG TAB PO SCH (08:44)
[2024-05-26] MEDS: DIVALPROEX EXTENDED RELEASE 500 MG TAB PO SCH (08:44)
[2024-05-26] MEDS: levoFLOXacin 500 MG TAB PO SCH (08:44)
[2024-05-26] MEDS: risperiDONE 0.25 MG TAB PO SCH (08:45)
[2024-05-26] MEDS: SODIUM CHLORIDE 0.9% 1,000 ML IV SCH (09:04)
[2024-05-26] MEDS: SENNA 8.6 MG TAB PO SCH (09:12)
[2024-05-26] MEDS: INSULIN ASPART PER UNIT CHARGE SC SCH (09:14)
[2024-05-26 09:28] LABS: Estimated Average Glucose 128 mg/dl; Hemoglobin A1C 6.1 % (4.5-5.6)
--- NOTE | 2024-05-26 17:37 | Communication Note ---
Patient seen and examined at bedside. Patient is very comfortable. States he has no abdominal pain and was not short of breath when he came in. Had long discussion with sister in regards to patient's repeat hospitalizations and concerned that their facility keeps sending him back to the hospital while he is asymptomatic. Discussed next steps including the sister discussing with [facility] of [facility], and working on our end to ensure the patient is getting his best care possible at his half-way. She was very appreciative of the update. Date of Service: May 26, 2024
[2024-05-26] MEDS: DOXEPIN HCL 10 MG CAPSULE PO SCH (21:56)
[2024-05-26] MEDS: ACETAMINOPHEN 325 MG TAB PO PRN (22:54)
--- NOTE | 2024-05-27 13:11 | Communication Note ---
By CMS guidelines, a determination that the admission or continued stay is not medically necessary has been made by a member of the UR committee and a physician for this hospital stay, therefore a Code 44 will be completed and the Inpatient admission will be changed to outpatient. Date of Service: May 27, 2024
[2024-05-27 13:18] VITALS: RESP 20
[2024-05-27 13:36] VITALS: BP 148/72; PULSE 64; TEMP 97.7; O2SAT 95
--- NOTE | 2024-05-27 16:25 | Electrocardiogram Report ---
Test Reason : Blood Pressure : */* mmHG Vent. Rate : 71 BPM Atrial Rate : 71 BPM P-R Int : 182 ms QRS Dur : 70 ms QT Int : 400 ms P-R-T Axes : 65 15 52 degrees QTcB Int : 434 ms Normal sinus rhythm Low voltage QRS Inferior infarct (cited on or before 12-Apr-2022) Possible Anterolateral infarct (cited on or before 10-Jun-2010) Abnormal ECG When compared with ECG of 23-May-2024 12:01, No significant change was found Confirmed by Junaid Alan ([id number]) on 05/27/2024 4:25:24 PM Referred By: REFERRED SELF Confirmed By: Junaid Alan
--- NOTE | 2024-05-27 16:55 | Discharge Summary ---
Discharge Summary Date of Service May 27, 2024 Principal Dx & Hospital Course #1 = Principal Diagnosis (1) Hypoxia: 68-year-old male comes from [employer] [facility] [employer] [facility] with past medical significant for dyslipidemia, type 2 diabetes, history of CAD, history of systolic and diastolic CHF EF 45% echo 2018 and EF 50 to 50% on echo done in 2022, history of spina bifida, history of mild intellectual disability, impulsive disorder, generalized anxiety disorder, depression, hypothyroidism, GERD, BPH, history of prior hepatitis B infection, CKD was brought in because of abdominal pain and hypoxia. Patient was recently in the hospital for transient lethargy, metabolic encephalopathy and possible UTI and bacteremia. He was discharged yesterday on Levaquin. Patient seems to be requiring oxygen and also complained abdominal pain and was brought in here. CTA chest and CT abdomen pelvis unremarkable. He was saturating 87% on room air and requiring oxygen in the ER. Currently alert and awake. Denies any chest pain. Complains of some abdominal pain. Denies cough. No runny nose or sore throat. Denies shortness of breath. Somewhat difficult to get history from the patient. Currently hemodynamics are okay. Hypoxia -has oxygen at residential -discussed with manager combination and nurse at length, gave specific instructions in regards to readmissions, patients target oxygen level is 90%, prescribed inhalers, patient has oxygen at facility -please try interventions to bring up oxygen saturation such as deep breaths, sitting up in bed, inhalers before bringing to ED -patient will benefit from a consistent location, per patient very much looking forward to going back to residential -discussed case at length with sister as well -patient has been on room air and passed 2 step today with lowest saturation of 93% Recent UTI, resolved -UA looks okay -Will continue Levaquin which he was discharged on Abdominal pain Hypertension on coreq, lisinopril,and amlodipine Diabetes -hold home med -ISS -Will monitor Right ICA stenosis -On aspirin and statin Nocturnal hypoxemia -Noncompliant with oxygen use -Will monitor -Needs sleep study outpatient Chronic systolic and diastolic CHF -EF 50 to 50% on echo in 2022 -seems currently not on lasix -will monitor Hypothyroidism -On Synthyroid GERD -Omeprazole History of depression Generalized anxiety disorder Compulsive disorder and mild intellectual disability On venlafaxine, divalproex, buspirone, bupropion, Abilify and doxepin Seroquel and risperidone History of CAD On aspirin and beta-kenyatta History of BPH Monitor for urinary retention History of spina bifida Notes For Next Care Provider 68-year-old male comes from [place] [employer] [facility] with past medical significant for dyslipidemia, type 2 diabetes, history of CAD, history of systolic and diastolic CHF EF 45% echo 2019 and EF 50 to 50% on echo done in 2022, history of spina bifida, history of mild intellectual disability, impulsive disorder, generalized anxiety disorder, depression, hypothyroidism, GERD, BPH, history of prior hepatitis B infection, CKD was brought in because of abdominal pain and hypoxia. On admission to ED, patient quickly did not need oxygen, denied SOB and abdominal pain, admitted to medicine. Discussed case at length with hospital case management and hospital medicine leadership in regards to frequent readmissions with minimal pathology that could likely be managed either at residential or at urgent care/ED. Discussed case with residential management and nursing team, gave different strategies and medications for hypoxia including new inhale rs. Patient should get referrals for speech therapy, pulmonary from PCP. Medication Changes From Visit -new inhalers, zofran for nausea/vomiting Admission HPI Per Admitting Provider 68-year-old male comes from [place] with past medical significant for dyslipidemia, type 2 diabetes, history of CAD, history of systolic and diastolic CHF EF 45% echo 2018 and EF 50 to 50% on echo done in 2022, history of spina bifida, history of mild intellectual disability, impulsive disorder, generalized anxiety disorder, depression, hypothyroidism, GERD, BPH, history of prior hepatitis B infection, CKD was brought in because of abdominal pain and hypoxia. Patient was recently in the hospital for transient lethargy, metabolic encephalopathy and possible UTI and bacteremia. He was discharged yesterday on Levaquin. Patient seems to be requiring oxygen and also complained abdominal pain and was brought in here. CTA chest and CT abdomen pelvis unremarkable. He was saturating 87% on room air and requiring oxygen in the ER. Currently alert and awake. Denies any chest pain. Complains of some abdominal pain. Denies cough. No runny nose or sore throat. Denies shortness of breath. Somewhat difficult to get history from the patient. Currently hemodynamics are okay. Past medical history. As mentioned above Past surgical history. Bilateral alveloplasty. Colonoscopy. EGD. EGD with endoscopic ultrasound. Surgical extraction of ruptured tooth. Social history. No smoking. No alcoholism. No drug use. Family history. Mother had diabetes. Heart disorder. Father had heart disorder. Maternal grandfather had stroke. Maternal grandmother had stroke Discharge Exam Gen: A&O 1-2 NAD HEENT: NCAT, EOMI, not icteric. External ears normal. No rhinorrhea. Moist mucous membranes. Neck: Supple, full range of motion, no observable masses, No meningeal sign. Lungs: No Respiratory distress. CV: RRR, no edema. Abdomen: Soft, nondistended, No rebound tenderness. MSK: No joint swelling, no redness. Skin: No rashes, petechiae, lesions. Normal color per patient. Neuro: Normal Gait, Grossly intact. Psych: Appropriate for situation. Updated Medication List Medication Instructions Recorded Confirmed Type aripiprazole 15 mg tablet 15 mg PO DAILY 05/13/24 05/25/24 History aspirin 81 mg chewable tablet 81 mg PO DAILY 05/13/24 05/25/24 History bupropion HCl 300 mg 24 hr tablet, 300 mg PO DAILY 05/13/24 05/25/24 History extended release buspirone 15 mg tablet 15 mg PO BID 05/13/24 05/25/24 History carvedilol 25 mg tablet (Coreg) 25 mg PO BID 05/13/24 05/25/24 History divalproex 500 mg tablet,extended 1,500 mg PO DAILY 05/13/24 05/25/24 History release 24 hr doxepin 10 mg capsule 10 mg PO HS 05/13/24 05/25/24 History empagliflozin 25 mg tablet 25 mg PO DAILY 05/13/24 05/25/24 History (Jardiance) levothyroxine 100 mcg tablet 100 mcg PO DAILY 05/13/24 05/25/24 History lisinopril 10 mg tablet 10 mg PO DAILY 05/13/24 05/25/24 History multivitamin with folic acid 400 1 tab PO DAILY 05/13/24 05/25/24 History mcg tablet (Daily-Ezekiel (with folic acid)) quetiapine 50 mg tablet 50 mg PO TID 05/13/24 05/25/24 History risperidone 0.25 mg tablet 0.25 mg PO DAILY 05/13/24 05/25/24 History sennosides 8.6 mg tablet (senna) 8.6 mg PO BID 05/13/24 05/25/24 History sucralfate 1 gram tablet 1 g PO DAILY 05/13/24 05/25/24 History venlafaxine 37.5 mg 37.5 mg PO DAILY 05/13/24 05/25/24 History capsule,extended release 24 hr venlafaxine 75 mg capsule,extended 75 mg PO DAILY 05/13/24 05/25/24 History release 24 hr atorvastatin 20 mg tablet 20 mg PO DAILY 05/23/24 05/25/24 History omeprazole 40 mg capsule,delayed 40 mg PO DAILY 05/23/24 05/25/24 History release amlodipine 10 mg tablet 10 mg PO DAILY #30 tabs 05/25/24 05/25/24 Rx levofloxacin 500 mg tablet 500 mg PO DAILY 5 days #5 tabs 05/25/24 05/25/24 Rx Incentive Spirometer #1 ea 05/27/24 Rx albuterol sulfate 90 mcg/actuation 1 inh inhalation Q6H PRN shortness 05/27/24 Rx aerosol inhaler of breath or wheezing #8.5 grams ipratropium bromide 17 1 inh inhalation Q6H PRN SOB, use 05/27/24 Rx mcg/actuation HFA aerosol inhaler if still SOB after albuterol #12.9 grams ondansetron 4 mg disintegrating 4 mg PO Q6 PRN nausea and vomiting 05/27/24 Rx tablet 30 days #90 tabs Hospital Stay Data Consultations 05/26/24 01:22 ED Decision to Admit Stat Diagnostic Imagining Performed 05/25/24 22:14 CT Abd and Pelvis [CT abd pelvis IV con only] Stat CT angio chest PE protocol Stat Pending Results Patient Have Any Pending Studies at Discharge: No Discharge Instructions Given to Patient (Per Discharging Provider) 1. Discussed case at length with residential. Patient occasionally requires oxygen at facility, but is asymptomatic during those episodes. Passed 2 step oxygen here, and has been on room air since admission. Goal oxygen saturation is 90%. Encourage patient wearing oxygen when needed, if saturations low tell him to take deep breaths and have him sit upright. Use incentive spirometry. Providing inhalers to use as needed as well and use as needed. 2. If current residential is unable to provide level of care provided, please consider transferring him to a residential that is able to take care of his needs. 3. Please follow up with PCP, speech therapist, superintendent system operation as well, get referrals from PCP. 4. Use ondansetron for nausea/vomiting. Total Time Total Time Spent Total Time Spent (In Minutes): I spent a total of 35 minutes in direct patient care, including [id number] time with the patient and/or family, reviewing medical records, ordering and reviewing diagnostic tests, and coordinating care with other healthcare providers. This time includes: history taking, physical examination, medical decision making, counseling, ECG interpretation, imaging interpretation, lab interpretation, orders, and education, excluding time spent in the performance of separately billed services.
== END 2024-05-27 15:00 | DRG 206 ==
LOC: ED 19:58 → EDINP 05-26 05:04 → INTOOBSV 05-26 05:04 → 2N 05-26 22:20

== ENCOUNTER 2024-12-21 21:53 | Observation (INO) ==
[2024-12-21] MEDS: ACETAMINOPHEN 1,000 MG/100 ML VIAL IV STA (23:09)
--- NOTE | 2024-12-21 23:15 | Emergency Department Note ---
Impression & Plan Acute kidney injury superimposed on chronic kidney disease, Fall, Acute left ankle pain, Acute pain of left knee, Abrasion of knee ED Provider Note HISTORY OF PRESENT ILLNESS: Patient is a 69-year-old male presenting with left lower leg pain after a fall. Patient reports he tripped and fell. EMS states that he had an unwitnessed ground-level fall at his facility. Facility workers apparently heard the fall and went to the patient immediately so he was not down for prolonged amount of time. Patient denies any chest pain or shortness of breath prior to the fall. Denies any abdominal pain, nausea or vomiting. Currently complaining of pain in his left knee and left ankle. Tetanus is up-to-date. ROS: as above PHYSICAL EXAM: Constitutional: Patient appears in no acute distress. HENT: Head: Normocephalic and atraumatic. Eyes: EOMI, PERRL Mouth/Throat: Mucous membranes moist. Neck: Trachea midline. Neck supple. Cardiovascular: RRR, No murmurs, rubs or gallops. Intact distal pulses. Pulmonary/Chest: No respiratory distress. Breath sounds clear and equal bilaterally. No wheezes or rales. Abdominal: Abdomen soft, no tenderness, rebound or guarding. Musculoskeletal: - LLE: Abrasion to the anterior knee. Able to flex and extend at the knee. Tender to palpation over the medial malleolus of the ankle. Unable to range the ankle secondary to pain. Intact DP and PT pulses. Skin: Warm and dry. No rash, erythema, pallor or cyanosis Psychiatric: Appropriate mood and affect for situation. Neurological: Alert and keenly responsive. CN II-XII grossly intact, moving all extremities equally and fully. MDM: - Vitals signs stable. - History obtained via patient and EMS, given patient's intellectual disability. History as above. - Chronic conditions affecting care: Anxiety/depression; cerebral palsy; CAD; DM-2; hypothyroidism; HTN; HLD - Differential diagnoses include, but are not limited to: Ankle fracture; ankle dislocation; knee fracture; knee contusion - Order placed for continuous cardiac monitoring. At this time, monitor showed rate of 69 bpm with normal sinus rhythm, per my interpretation. - External medical records reviewed. - Laboratory workup interpreted by myself showed leukocytosis (WBC 13.88); thrombocytopenia (plt 99); anemia (Hgb 9.8); stable electrolytes; HESHAM on CKD (Cr 2.7); evaded BUN (50); normal CK; normal AST/ALT; normal lipase - Xray imaging of the left knee reviewed by myself was negative for fracture, per my interpretation. - Xray left tib fib showed soft tissue swelling and hypertrophic degenerative changes. - Xray left ankle showed hypertrophic degenerative changes per radiology. - Patient was given 1g IV tylenol on arrival. - Given 1L NS for hydration. - Patient's pain elevation is significantly increased from his previous laboratory workup. Will admit to hospitalist service. - Discussion was had with egg caser about patient's case and need for admission - Hospitalist consulted for admission - Patient admitted to [facility] hospitalist service for further evaluation and management. ASSESSMENT AND PLAN: Diagnosis: Fall; left knee pain; acute left ankle pain; HESHAM on CKD; abrasion of knee Plan: Admit Past Med/Surg History Problem List (Updated 12/22/24 @ 02:42 by Lorri Crandall MD) Abrasion of knee (Acute) Acute pain of left knee (Acute) Acute left ankle pain (Acute) Fall (Acute) Acute kidney injury superimposed on chronic kidney disease (Acute) Hypoxic (Acute) Abdominal pain in male (Acute) AMS (altered mental status) (Acute) Hypoxia (Acute) Enteritis due to Norovirus (Acute) Acute dehydration (Acute) HESHAM (acute kidney injury) (Acute) Nausea, vomiting, and diarrhea (Acute) Internal carotid artery stenosis (Acute) Slurred speech (Acute) Hypoglycemia (Acute) Nocturnal hypoxemia Acute dyspnea (Acute) Severe sepsis Acute hyponatremia (Acute) Elevated lactic acid level (Acute) Leukocytosis (Acute) Dehydration (Acute) HESHAM (acute kidney injury) (Acute) Hypotension (Acute) Elevated troponin (Acute) Sepsis (Acute) Back pain Closed L2 vertebral fracture (Acute) Pulmonary edema (Acute) Pneumonitis (Acute) Lactic acidemia (Acute) Contrast dye induced nephropathy Acute renal insufficiency Elevated troponin Chronic heart failure with reduced ejection fraction and diastolic dysfunction Hypertension (Acute) Intellectual disability (Acute) Congestive heart failure (CHF) Aspiration pneumonia Psychiatric disorder Intermittent explosive disorder Anxiety disorder, unspecified Depression Medical History Vocal cord paralysis, unilateral complete GERD (gastroesophageal reflux disease) Myocardial infarction Remote hx per records > medically managed Coronary artery disease Thrombocytopenia Chronic thrombocytopenia, baseline platelets low 100s per chart review Obesity Cerebral palsy Moderate intellectual disabilities sister/POA -ASHLEY IRENE [phone]-[place] 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 Wolff H/O tooth extraction History of esophagogastroduodenoscopy (EGD) History of colonoscopy EGD/colonoscopy (12/07/19): MAC sedation at [facility] History of bronchoscopy Flexible bronchoscopy with BAL (02/04/18): Grade view 1, Elective glidescope #4, ETT 8.5 at [facility] (done for aspiration PNA) Family History Other No significant family history Social History (System 11/09/24 @ 12:49 by Vianey Barnard) Smoking Status: Unknown if ever smoked Second Hand Exposure: No; Do You Dip or Chew Tobacco: No; Hx Alcohol Use: No Hx Substance Use: No Preferred Language: Icelandic Communication Ability: Effective Communication Ability Comment: PT IS INTELLECTUALLY IMPAIRED De Icer Required: No Beliefs That Will Affect Care: None marital status: Single Current Living Situation: Other Current Living Situation Comment: Radhika Pope current occupational status: disabled Feels Safe at Home: Yes Assistive Devices: Oxygen - at Night, Walker and Wheelchair Allergies Allergies Allergy/AdvReac Type Severity Reaction Status Date / Time terbinafine Allergy Mild RASH ON Verified 11/09/24 12:49 ARM? Penicillins Allergy Unknown Unknown Unverified 11/09/24 12:49 Carbapenems Allergy Unknown Verified 12/22/24 01:37 Cephalosporins Allergy Unknown Verified 12/22/24 01:37 BETALACTAMS Allergy Unknown Uncoded 12/22/24 01:39 Home Meds Home Medications Medication Instructions Recorded Confirmed aripiprazole 15 mg tablet 15 mg PO QAM 05/13/24 12/22/24 aspirin 81 mg chewable tablet 81 mg PO QAM 05/13/24 12/22/24 bupropion HCl 300 mg 24 hr tablet, 300 mg PO QAM 05/13/24 12/22/24 extended release buspirone 15 mg tablet 15 mg PO BID 05/13/24 12/22/24 carvedilol 25 mg tablet (Coreg) 25 mg PO BID 05/13/24 12/22/24 divalproex 500 mg tablet,extended 500 mg PO QPM 05/13/24 12/22/24 release 24 hr doxepin 10 mg capsule 10 mg PO HS 05/13/24 12/22/24 lisinopril 10 mg tablet 10 mg PO QAM 05/13/24 12/22/24 multivitamin with folic acid 400 1 tab PO QAM 05/13/24 12/22/24 mcg tablet (Daily-Ezekiel (with folic acid)) risperidone 0.25 mg tablet 0.25 mg PO [facility] 05/13/24 12/22/24 sennosides 8.6 mg tablet (senna) 8.6 mg PO BID 05/13/24 12/22/24 sucralfate 1 gram tablet 1 g PO QAM 05/13/24 12/22/24 venlafaxine 37.5 mg 37.5 mg PO [facility] 05/13/24 12/22/24 capsule,extended release 24 hr venlafaxine 75 mg capsule,extended 75 mg PO QA 05/13/24 12/22/24 release 24 hr atorvastatin 20 mg tablet 20 mg PO M 05/23/24 12/22/24 omeprazole 40 mg capsule,delayed 40 mg PO DAILY 05/23/24 12/22/24 release amlodipine 5 mg tablet 5 mg PO QAM 12/22/24 12/22/24 levothyroxine 112 mcg tablet 112 mcg PO DAILYBB 12/22/24 12/22/24 quetiapine 50 mg tablet 50 mg PO TID 12/22/24 12/22/24 spironolactone 25 mg tablet 25 mg PO QAM 12/22/24 12/22/24 Previous Rx's Medication Instructions Recorded Incentive Spirometer #1 ea 05/27/24 Results & Data (ED) Vital Signs Vital Signs - 24 hr 12/21/24 22:08 12/21/24 22:53 12/21/24 23:00 Temperature 37.0 C Temperature Source Oral Pulse Rate 71 74 69 Pulse Rate from SpO2 Sensor 70 Respiratory Rate 20 16 Respiratory Effort / Characteristics Non-Labored Spontaneous Respiratory Depth Normal Respiratory Pattern Regular Blood Pressure 129/65 Blood Pressure Mean 86 Pulse Oximetry 98 93 Oxygen Delivery Method Room Air Sepsis Recent Fever Within 48 Hours No Sepsis New/Unexplained Change in Mental Status N/A Sepsis Action Taken by Nursing No Action Required 12/22/24 00:00 12/22/24 01:00 Temperature Temperature Source Pulse Rate 63 69 Pulse Rate from SpO2 Sensor 69 Respiratory Rate 16 20 Respiratory Effort / Characteristics Respiratory Depth Respiratory Pattern Blood Pressure 128/62 128/62 Blood Pressure Mean 72 84 Pulse Oximetry 90 90 Oxygen Delivery Method Sepsis Recent Fever Within 48 Hours Sepsis New/Unexplained Change in Mental Status Sepsis Action Taken by Nursing Laboratory Data 12/21/24 23:26 12/21/24 22:56 Lab Results 12/21/24 12/21/24 12/21/24 Range/Units 22:56 23:26 23:31 WBC Cancelled 13.88 H RBC Cancelled 3.18 L Hgb Cancelled 9.8 L Hct Cancelled 29.8 L MCV Cancelled 93.7 MCH Cancelled 30.8 MCHC Cancelled 32.9 RDW Std Deviation Cancelled 49.1 H RDW Coeff of Josiah Cancelled 14.3 Plt Count Cancelled 99 L MPV Cancelled 12.1 Immature Gran % (Auto) Cancelled 0.7 Neut % (Auto) Cancelled 71.8 Lymph % (Auto) Cancelled 15.7 Banks % (Auto) Cancelled 11.1 Eos % (Auto) Cancelled 0.4 Baso % (Auto) Cancelled 0.3 Neut # (Auto) Cancelled 9.96 H Lymph # (Auto) Cancelled 2.18 Banks # (Auto) Cancelled 1.54 H Eos # (Auto) Cancelled 0.06 Baso # (Auto) Cancelled 0.04 Immature Gran # (Auto) Cancelled 0.10 Absolute Nucleated RBC Cancelled Nucleated RBC % (auto) Cancelled Neutrophils % (Manual) Cancelled Band Neutrophils % Cancelled Lymphocytes % (Manual) Cancelled Prolymphocyte % Cancelled Reactive Lymphs % (Man) Cancelled Monocytes % (Manual) Cancelled Eosinophils % (Manual) Cancelled Basophils % (Manual) Cancelled Metamyelocytes % (Man) Cancelled Myelocytes % (Man) Cancelled Promyelocytes % (Man) Cancelled Blast Cells % (Manual) Cancelled Plasma Cell % (Manual) Cancelled Other Cells % Cancelled Nucleated RBC % Cancelled Neutrophils # (Manual) Cancelled Band Neutrophils # Cancelled Total Absolute Neuts Cancelled Lymphocytes # (Manual) Cancelled Prolymphocyte # Cancelled Reactive Lymphs # Cancelled Total Abs Lymphocytes Cancelled Monocytes # (Manual) Cancelled Eosinophils # (Manual) Cancelled Basophils # (Manual) Cancelled Metamyelocytes # (Man) Cancelled Myelocytes # (Manual) Cancelled Promyelocytes # (Man) Cancelled Blast Cells # (Man) Cancelled Plasma Cell # (Manual) Cancelled Other Cells # Cancelled Nucleated RBCs # (Man) Cancelled Hypersegmented Neuts Cancelled Hyposegmented Neuts Cancelled Hypogranular Neuts Cancelled Large Granular Lymphs Cancelled # Lrg Granular Lymphs Cancelled Hairy Cells Cancelled Smudge Cells Cancelled Toxic Granulation Cancelled Toxic Vacuolation Cancelled Dohle Bodies Cancelled Aretha Rods Cancelled Platelet Estimate Cancelled Hypogranular Platelets Cancelled Giant Platelets Cancelled Platelet Satelliting Cancelled RBC Morphology Cancelled Polychromasia Cancelled Hypochromasia Cancelled Poikilocytosis Cancelled Basophilic Stippling Cancelled Anisocytosis Cancelled Microcytosis Cancelled Macrocytosis Cancelled Spherocytes Cancelled Pappenheimer Bodies Cancelled Sickle Cells Cancelled Target Cells Cancelled Tear Drop Cells Cancelled Ovalocytes Cancelled Stomatocytes Cancelled [place] Bodies Cancelled Echinocytes Cancelled Acanthocytes (Spur) Cancelled Rouleaux Cancelled RBC Agglutinates Cancelled Schistocytes Cancelled Sezary Cell Cancelled Sodium 135 L (136-145) mmol/L Potassium 4.3 (3.5-5.1) mmol/L Chloride 100 (98-107) mmol/L Carbon Dioxide 25 (21-32) mmol/L Anion Gap 10 (3-11) BUN 50 H (6-23) mg/dl Creatinine 2.70 H (0.6-1.4) mg/dl Est Cr Clr Drug Dosing Not Reportable eGFR 25.05 BUN/Creatinine Ratio 18.5 (10-20) Glucose 95 (70-99(Fasting)) mg/dl Calcium 9.0 (8.6-10.3) mg/dl Total Bilirubin 0.5 (0.2-1.0) mg/dl AST TNP 21 ALT 16 (7-52) U/L Alkaline Phosphatase 68 (34-104) U/L Total Creatine Kinase 200 (30-223) U/L Total Protein 8.1 (6.0-8.3) gm/dl Albumin 3.7 (3.4-5.0) gm/dl Globulin 4.4 H (2.5-4.0) gm/dl Albumin/Globulin Ratio 0.8 L (0.9-2) Lipase 24 (11-82) U/L Blood Parasites ID Cancelled Administered Medications Discontinued Medications Acetaminophen (Ofirmev) 1,000 mg in 100 mls @ 400 mls/hr IV NOW STA Stop: 12/21/24 22:23 Last Infusion: 12/21/24 23:30 Dose: Infused Documented By: Admin: 12/21/24 23:09 Dose: 400 mls/hr Documented By: PRADEEP Imaging Data Radiologist's Impression: Ankle X-Ray 12/21/24 22:08 Exam(s): XR LEFT ANKLE, 2 views EXAM: XR Left Ankle, 2 Views CLINICAL HISTORY: Reason for exam: ankle pain s/p fall. TECHNIQUE: Frontal and lateral views of the left ankle. COMPARISON: No relevant prior studies available. FINDINGS: Exam is limited due to patient positioning. Bones/joints: No gross fracture or dislocation. There are hypertrophic degenerative changes. There are calcaneal spurs. There is a pes planus deformity. Soft tissues: There is soft tissue swelling. IMPRESSION: Limited exam. Hypertrophic degenerative changes. If further evaluation is clinically necessary, consider correlation with CT scan and/or MRI.. Electronically signed by: Reza Butler MD 12/21/24 23:42 PM Knee X-Ray 12/21/24 22:08 Exam(s): XR LEFT KNEE, 3 views EXAM: XR Left Knee, 3 Views CLINICAL HISTORY: Reason for exam: knee pain s/p fall. TECHNIQUE: Three views of the left knee. COMPARISON: No relevant prior studies available. FINDINGS: Bones/joints: No acute fracture. No dislocation. There are mild hypertrophic degenerative changes. Soft tissues: Unremarkable. IMPRESSION: Mild hypertrophic degenerative changes. If further evaluation is clinically necessary, consider correlation with MRI. Electronically signed by: Reza Butler MD 12/21/24 23:52 PM Tibia/Fibula X-Ray 12/21/24 22:09 Exam(s): XR LEFT TIB/FIB, 2 views EXAM: XR Left Tibia and Fibula, 2 Views CLINICAL HISTORY: Reason for exam: ankle pain s/p fall. TECHNIQUE: Frontal and lateral views of the left tibia and fibula. COMPARISON: No relevant prior studies available. FINDINGS: Bones/joints: No acute fracture. No dislocation. There are hypertrophic degenerative changes. Soft tissues: There is soft tissue swelling. No radiopaque foreign body. IMPRESSION: Soft tissue swelling. Hypertrophic degenerative changes. If further evaluation is clinically necessary, consider correlation with MRI Electronically signed by: Reza Butler MD 12/21/24 23:52 PM Discharge Plan Visit Data Chief Complaint: Fall Stated Complaint: FALL ED Provider: Lorir Crandall Discharge Problem: Acute kidney injury superimposed on chronic kidney disease, Fall, Acute left ankle pain, Acute pain of left knee, Abrasion of knee Condition: Fair Forms Stand Alone Forms: [facility] [employer] Prescriptions Prescriptions: No Action sennosides [senna] 8.6 mg tablet 8.6 mg PO BID venlafaxine 37.5 mg capsule,extended release 24hr 37.5 mg PO QAM Rx Instructions: Take 37.5mg w/ 75mg to equal 112.5 QAM venlafaxine 75 mg capsule,extended release 24hr 75 mg PO QAM Rx Instructions: Take 37.5mg w/ 75mg to equal 112.5 QAM sucralfate 1 gram tablet 1 g PO QAM risperidone 0.25 mg tablet 0.25 mg PO QAM doxepin 10 mg capsule 10 mg PO HS lisinopril 10 mg tablet 10 mg PO QAM divalproex 500 mg tablet extended release 24 hr 500 mg PO QPM aspirin 81 mg tablet,chewable 81 mg PO QAM buspirone 15 mg tablet 15 mg PO BID aripiprazole 15 mg tablet 15 mg PO QAM bupropion HCl 300 mg tablet extended release 24 hr 300 mg PO QAM multivitamin with folic acid [Daily-Ezekiel (with folic acid)] 400 mcg tablet 1 tab PO QAM carvedilol [Coreg] 25 mg Tablet 25 mg PO BID Rx Instructions: must administer with a meal/food atorvastatin 20 mg tablet 20 mg PO QAM omeprazole 40 mg capsule,delayed release(DR/EC) 40 mg PO DAILY (DME) Incentive Spirometer Misc See Rx Instructions .Route Qty: 1 0RF Rx Instructions: As directed amlodipine 5 mg tablet 5 mg PO QAM quetiapine 50 mg tablet 50 mg PO TID spironolactone 25 mg tablet 25 mg PO QAM levothyroxine 112 mcg tablet 112 mcg PO DAILYBB Referrals Referrals: Tim Swenson DO [Primary Care Provider] -
--- NOTE | 2024-12-21 23:43 | XRay Report ---
Exam(s): XR LEFT ANKLE, 2 views EXAM: XR Left Ankle, 2 Views CLINICAL HISTORY: Reason for exam: ankle pain s/p fall. TECHNIQUE: Frontal and lateral views of the left ankle. COMPARISON: No relevant prior studies available. FINDINGS: Exam is limited due to patient positioning. Bones/joints: No gross fracture or dislocation. There are hypertrophic degenerative changes. There are calcaneal spurs. There is a pes planus deformity. Soft tissues: There is soft tissue swelling. IMPRESSION: Limited exam. Hypertrophic degenerative changes. If further evaluation is clinically necessary, consider correlation with CT scan and/or MRI.. Electronically signed by: Reza Butler MD 12/21/24 23:42 PM
[2024-12-21 23:44] LABS: Alanine Aminotransferase 16 U/L (7-52); Albumin Globulin Ratio 0.8 (0.9-2); Alkaline Phosphatase 68 U/L (34-104); Anion Gap 10 (3-11); Bilirubin,Total 0.5 mg/dl (0.2-1.0); Blood Urea Nitrogen 50 mg/dl (6-23); Calcium 9.0 mg/dl (8.6-10.3); Carbon Dioxide 25 mmol/L (21-32); Chloride 100 mmol/L (98-107); Globulin 4.4 gm/dl (2.5-4.0); Glucose 95 mg/dl (70-99(Fasting)); Lipase 24 U/L (11-82); Potassium 4.3 mmol/L (3.5-5.1); Sodium 135 mmol/L (136-145); Total Protein 8.1 gm/dl (6.0-8.3)
--- NOTE | 2024-12-21 23:52 | XRay Report ---
Exam(s): XR LEFT KNEE, 3 views EXAM: XR Left Knee, 3 Views CLINICAL HISTORY: Reason for exam: knee pain s/p fall. TECHNIQUE: Three views of the left knee. COMPARISON: No relevant prior studies available. FINDINGS: Bones/joints: No acute fracture. No dislocation. There are mild hypertrophic degenerative changes. Soft tissues: Unremarkable. IMPRESSION: Mild hypertrophic degenerative changes. If further evaluation is clinically necessary, consider correlation with MRI. Electronically signed by: Reza Butler MD 12/21/24 23:52 PM
--- NOTE | 2024-12-21 23:53 | XRay Report ---
Exam(s): XR LEFT TIB/FIB, 2 views EXAM: XR Left Tibia and Fibula, 2 Views CLINICAL HISTORY: Reason for exam: ankle pain s/p fall. TECHNIQUE: Frontal and lateral views of the left tibia and fibula. COMPARISON: No relevant prior studies available. FINDINGS: Bones/joints: No acute fracture. No dislocation. There are hypertrophic degenerative changes. Soft tissues: There is soft tissue swelling. No radiopaque foreign body. IMPRESSION: Soft tissue swelling. Hypertrophic degenerative changes. If further evaluation is clinically necessary, consider correlation with MRI Electronically signed by: Reza Butler MD 12/21/24 23:52 PM
[2024-12-22 00:04] LABS: Hematocrit (blood only) 29.8 % (42.0-52.0); Hemoglobin 9.8 g/dl (14.0-18.0); Immature Granulocytes # (auto) 0.10 K/uL (0.01-0.20); Immature Granulocytes % (auto) 0.7 %; Mean Corpuscular Hemoglobin 30.8 pg (25.0-34.0); Mean Corpuscular Volume 93.7 fL (80.0-100.0); Platelet Count 99 K/uL (130-400); RDW Standard Deviation 49.1 fL (36.4-46.3); Red Blood Count 3.18 M/uL (4.70-6.10); White Blood Count 13.88 K/ul (4.8-10.8)
--- NOTE | 2024-12-22 02:08 | History & Physical Report ---
Date of Service December 22, 2024 Assessment & Plan (1) AMS (altered mental status): Plan: Assessment and plan below following discussion of case with ED provider and reviewing patient history/pertinent normal/abnormal diagnostic test results. Encephalopathy History of intellectual impairment Multifactorial: ARF on CKD Polypharmacy from multiple neuropsychotropic medications for anxiety/mood disorder/intermittent explosive disorder contributory Possible syncopal event rule out orthostasis Bleeding right knee wound with secondary infection, no sepsis for now Acute on chronic anemia secondary to bleeding right knee wound chronic diastolic heart failure secondary to ischemic cardiomyopathy (EF 55-60%, TTE 2023), patient seems clinically dry hx CAD/PVD as per records hypertension, stable hyperlipidemia, on statin Rx DM2 diet-controlled, well-controlled as of recent hemoglobin A1c of 6.17 October 2024 Hypothyroidism, euthyroid as of recent outpatient TSH chronic thrombocytopenia history HBV/cholelithiasis/hepatic steatosis as per records aspiration risk Admit to medical telemetry Baseline UA, monitor creatinine response to IVF Hold lisinopril and spironolactone for now Renal ultrasound if without improvement Psych consult re: psych medication management, hold neuropsychotropic medications for now Check orthostatic vitals Hold aspirin for now given hemoglobin drop from baseline from bleeding right knee wound Follow H&H, transfuse PRBC to maintain hemoglobin of at least 8 given history CAD, will need to contact patient sister to give phone consent should need for transfusion arise due to patient's intellectual impairment Wound care consult for right knee wound Doxycycline for secondary infection ISS BG goal 110-140, carb con coverage PT OT eval DVT prophylaxis. SCDs re: bleeding right knee wound DNR as per prior directives following past discussion with sister/POA, . Gladys Irene. She requests updates from providers through [phone]. She also requests for patient to be cared for by female nurses if possible to facilitate better cooperation from patient. Text document was generated using [employer] voice recognition software. It may contain grammatical or spelling errors. Kindly contact undersigned for clarification of any documentation item in question. History of Present Illness Chief Complaint: Fall Primary Care Provider: Tim Swenson DO History obtained from patient, family, caregiver, and records. Limited history from patient secondary to lethargy. Medical history significant for chronic diastolic heart failure secondary to ischemic cardiomyopathy (EF 55-60%, TTE 2023), CAD as per records, hypertension, hyperlipidemia, PVD, DM2 diet-controlled, CRI (baseline creatinine 1.3), chronic anemia (baseline hemoglobin 10-11), chronic thrombocytopenia, history HBV/cholelithiasis/hepatic steatosis as per r ecords, history of spina bifida, anxiety/mood disorder, intermittent explosive disorder, borderline personality disorder, aspiration risk, intellectual impairment. Last confinement May 2024 for respiratory failure. Patient fell at [employer] early a.m. yesterday. Bleeding left knee wound noted. Patient seen at PCPs office yesterday. Outpatient x-ray requested. Topical antibiotic prescribed for open left knee wound. Patient had an unwitnessed fall at facility last night. Patient thinks he may have passed out resulting in head trauma. Achy headache symptoms. Patient weaker than usual as per caregivers. Patient denies chest pain, cough, SOB, abdominal pain, flank pain. Left knee wound bleeding more as per staff. Patient brought to ER for evaluation. Medical History as above Surgical History : Dental surgery Family History : Diabetes, heart disease Personal/Social history : Non-smoker, no EtOH intake, [facility] resident Allergies Allergy/AdvReac Type Severity Reaction Status Date / Time terbinafine Allergy Mild RASH ON Verified 11/09/24 12:49 ARM? Penicillins Allergy Unknown Unknown Unverified 11/09/24 12:49 Carbapenems Allergy Unknown Verified 12/22/24 01:37 Cephalosporins Allergy Unknown Verified 12/22/24 01:37 BETALACTAMS Allergy Unknown Uncoded 12/22/24 01:39 Home Medications Medication Instructions Recorded Confirmed Type aripiprazole 15 mg tablet 15 mg PO QAM 05/13/24 12/22/24 History aspirin 81 mg chewable tablet 81 mg PO QAM 05/13/24 12/22/24 History bupropion HCl 300 mg 24 hr tablet, 300 mg PO QAM 05/13/24 12/22/24 History extended release buspirone 15 mg tablet 15 mg PO BID 05/13/24 12/22/24 History carvedilol 25 mg tablet (Coreg) 25 mg PO BID 05/13/24 12/22/24 History divalproex 500 mg tablet,extended 500 mg PO QPM 05/13/24 12/22/24 History release 24 hr doxepin 10 mg capsule 10 mg PO HS 05/13/24 12/22/24 History lisinopril 10 mg tablet 10 mg PO QAM 05/13/24 12/22/24 History multivitamin with folic acid 400 1 tab PO QAM 05/13/24 12/22/24 History mcg tablet (Daily-Ezekiel (with folic acid)) risperidone 0.25 mg tablet 0.25 mg PO QAM 05/13/24 12/22/24 History sennosides 8.6 mg tablet (senna) 8.6 mg PO BID 05/13/24 12/22/24 History sucralfate 1 gram tablet 1 g PO QAM 05/13/24 12/22/24 History venlafaxine 37.5 mg 37.5 mg PO QAM 05/13/24 12/22/24 History capsule,extended release 24 hr venlafaxine 75 mg capsule,extended 75 mg PO QAM 05/13/24 12/22/24 History release 24 hr atorvastatin 20 mg tablet 20 mg PO QAM 05/23/24 12/22/24 History omeprazole 40 mg capsule,delayed 40 mg PO DAILY 05/23/24 12/22/24 History release Incentive Spirometer #1 ea 05/27/24 Rx amlodipine 5 mg tablet 5 mg PO QAM 12/22/24 12/22/24 History levothyroxine 112 mcg tablet 112 mcg PO DAILYBB 12/22/24 12/22/24 History quetiapine 50 mg tablet 50 mg PO TID 12/22/24 12/22/24 History spironolactone 25 mg tablet 25 mg PO QAM 12/22/24 12/22/24 History Past Med/Surg History Problem List (Updated 12/22/24 @ 02:42 by Lorri Crandall MD) Abrasion of knee (Acute) Acute pain of left knee (Acute) Acute left ankle pain (Acute) Fall (Acute) Acute kidney injury superimposed on chronic kidney disease (Acute) Hypoxic (Acute) Abdominal pain in male (Acute) AMS (altered mental status) (Acute) Hypoxia (Acute) Enteritis due to Norovirus (Acute) Acute dehydration (Acute) HESHAM (acute kidney injury) (Acute) Nausea, vomiting, and diarrhea (Acute) Internal carotid artery stenosis (Acute) Slurred speech (Acute) Hypoglycemia (Acute) Nocturnal hypoxemia Acute dyspnea (Acute) Severe sepsis Acute hyponatremia (Acute) Elevated lactic acid level (Acute) Leukocytosis (Acute) Dehydration (Acute) HESHAM (acute kidney injury) (Acute) Hypotension (Acute) Elevated troponin (Acute) Sepsis (Acute) Back pain Closed L2 vertebral fracture (Acute) Pulmonary edema (Acute) Pneumonitis (Acute) Lactic acidemia (Acute) Contrast dye induced nephropathy Acute renal insufficiency Elevated troponin Chronic heart failure with reduced ejection fraction and diastolic dysfunction Hypertension (Acute) Intellectual disability (Acute) Congestive heart failure (CHF) Aspiration pneumonia Psychiatric disorder Intermittent explosive disorder Anxiety disorder, unspecified Depression Medical History Vocal cord paralysis, unilateral complete GERD (gastroesophageal reflux disease) Myocardial infarction Remote hx per records > medically managed Coronary artery disease Thrombocytopenia Chronic thrombocytopenia, baseline platelets low 100s per chart review Obesity Cerebral palsy Moderate intellectual disabilities sister/POA -GLADYS IRENE [phone]-[id number] 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 Wolff H/O tooth extraction History of esophagogastroduodenoscopy (EGD) History of colonoscopy EGD/colonoscopy (12/07/19): MAC sedation at [facility] History of bronchoscopy Flexible bronchoscopy with BAL (02/04/18): Grade view 1, Elective glidescope #4, ETT 8.5 at [facility] (done for aspiration PNA) Family History Other No significant family history Social History (System 11/09/24 @ 12:49 by Vianey Barnard) Smoking Status: Unknown if ever smoked Second Hand Exposure: No; Do You Dip or Chew Tobacco: No; Hx Alcohol Use: No Hx Substance Use: No Preferred Language: Macedonian Communication Ability: Effective Communication Ability Comment: PT IS INTELLECTUALLY IMPAIRED Station Cashier Required: No Beliefs That Will Affect Care: None marital status: Single Current Living Situation: Other Current Living Situation Comment: Radhika Pope current occupational status: disabled Feels Safe at Home: Yes Assistive Devices: Oxygen - at Night, Walker and Wheelchair Review of Systems Review of Systems: Could not be reliably obtained secondary to lethargy Physical Exam Physical Exam: GENERAL: Lethargic, no respiratory distress, obese SKIN: Pallor, warm HEENT: Alopecia, pale palpebral conjunctivae, no ptosis, moist buccal mucosa, partially edentulous, nasal cannula in place NECK : Supple, short neck, no tenderness CHEST : Decreased breath sounds , no tenderness HEART : RRR, no obvious murmurs ABDOMEN: Some distention, no tenderness EXTREMITIES : Bilateral LE swelling, dressing over bleeding open right knee wound, minimal tenderness around right knee area NEUROLOGIC : Lethargic, no facial asymmetry, gait and stance not assessed Results & Data Results & Data Vital Signs (Past 12 Hours) Vital Signs Temp Pulse Resp Pulse Ox O2 Del Method 12/21/24 22:53 74 12/21/24 22:08 37.0 C 71 20 98 Room Air Laboratory Results Laboratory Results WBC 13.88 K/ul (4.8-10.8) H 12/21/24 23: RBC 3.18 M/uL (4.70-6.10) L 12/21/24 23: Hgb 9.8 g/dl (14.0-18.0) L 12/21/24 23: Hct 29.8 % (42.0-52.0) L 12/21/24 23: MCV 93.7 fL (80.0-100.0) 12/21/24 23: MCH 30.8 pg (25.0-34.0) 12/21/24 23: MCHC 32.9 g/dL (32.0-36.0) 12/21/24 23: RDW Std Deviation 49.1 fL (36.4-46.3) H 12/21/24 23: RDW Coeff of Josiah 14.3 % (11.5-14.5) 12/21/24: Plt Count 99 K/uL (130-400) L 12/21/24 23: MPV 12.1 fL (9.4-12.4) 12/21/24 23: Immature Gran % (Auto) 0.7 % 12/21/24: Neut % (Auto) 71.8 % 12/21/24: Lymph % (Auto) 15.7 % 12/21/24 23:26 Blair % (Auto) 11.1 % 12/21/24 23:26 Eos % (Auto) 0.4 % 12/21/24 23:26 Baso % (Auto) 0.3 % 12/21/24 23:26 Neut # (Auto) 9.96 K/uL (1.40-6.50) H 12/21/24 23:26 Lymph # (Auto) 2.18 K/uL (1.20-3.40) 12/21/24 23:26 Blair # (Auto) 1.54 K/uL (0.11-0.59) H 12/21/24 23:26 Eos # (Auto) 0.06 K/uL (0.00-0.50) 12/21/24 23:26 Baso # (Auto) 0.04 K/uL (0.00-0.20) 12/21/24 23:26 Immature Gran # (Auto) 0.10 K/uL (0.01-0.20) 12/21/24 23:26 Absolute Nucleated RBC Cancelled 12/21/24 22:56 Nucleated RBC % (auto) Cancelled 12/21/24 22:56 Neutrophils % (Manual) Cancelled 12/21/24 22:56 Band Neutrophils % Cancelled 12/21/24 22:56 Lymphocytes % (Manual) Cancelled 12/21/24 22:56 Prolymphocyte % Cancelled 12/21/24 22:56 Reactive Lymphs % (Man) Cancelled 12/21/24 22:56 Monocytes % (Manual) Cancelled 12/21/24 22:56 Eosinophils % (Manual) Cancelled 12/21/24 22:56 Basophils % (Manual) Cancelled 12/21/24 22:56 Metamyelocytes % (Man) Cancelled 12/21/24 22:56 Myelocytes % (Man) Cancelled 12/21/24 22:56 Promyelocytes % (Man) Cancelled 12/21/24 22:56 Blast Cells % (Manual) Cancelled 12/21/24 22:56 Plasma Cell % (Manual) Cancelled 12/21/24 22:56 Other Cells % Cancelled 12/21/24 22:56 Nucleated RBC % Cancelled 12/21/24 22:56 Neutrophils # (Manual) Cancelled 12/21/24 22:56 Band Neutrophils # Cancelled 12/21/24 22:56 Total Absolute Neuts Cancelled 12/21/24 22:56 Lymphocytes # (Manual) Cancelled 12/21/24 22:56 Prolymphocyte # Cancelled 12/21/24 22:56 Reactive Lymphs # Cancelled 12/21/24 22:56 Total Abs Lymphocytes Cancelled 12/21/24 22:56 Monocytes # (Manual) Cancelled 12/21/24 22:56 Eosinophils # (Manual) Cancelled 12/21/24 22:56 Basophils # (Manual) Cancelled 12/21/24 22:56 Metamyelocytes # (Man) Cancelled 12/21/24 22:56 Myelocytes # (Manual) Cancelled 12/21/24 22:56 Promyelocytes # (Man) Cancelled 12/21/24 22:56 Blast Cells # (Man) Cancelled 12/21/24 22:56 Plasma Cell # (Manual) Cancelled 12/21/24 22:56 Other Cells # Cancelled 12/21/24 22:56 Nucleated RBCs # (Man) Cancelled 12/21/24 22:56 Hypersegmented Neuts Cancelled 12/21/24 22:56 Hyposegmented Neuts Cancelled 12/21/24 22:56 Hypogranular Neuts Cancelled 12/21/24 22:56 Large Granular Lymphs Cancelled 12/21/24 22:56 # Lrg Granular Lymphs Cancelled 12/21/24 22:56 Hairy Cells Cancelled 12/21/24 22:56 Smudge Cells Cancelled 12/21/24 22:56 Toxic Granulation Cancelled 12/21/24 22:56 Toxic Vacuolation Cancelled 12/21/24 22:56 Dohle Bodies Cancelled 12/21/24 22:56 Aretha Rods Cancelled 12/21/24 22:56 Platelet Estimate Cancelled 12/21/24 22:56 Hypogranular Platelets Cancelled 12/21/24 22:56 Giant Platelets Cancelled 12/21/24 22:56 Platelet Satelliting Cancelled 12/21/24 22:56 RBC Morphology Cancelled 12/21/24 22:56 Polychromasia Cancelled 12/21/24 22:56 Hypochromasia Cancelled 12/21/24 22:56 Poikilocytosis Cancelled 12/21/24 22:56 Basophilic Stippling Cancelled 12/21/24 22:56 Anisocytosis Cancelled 12/21/24 22:56 Microcytosis Cancelled 12/21/24 22:56 Macrocytosis Cancelled 12/21/24 22:56 Spherocytes Cancelled 12/21/24 22:56 Pappenheimer Bodies Cancelled 12/21/24 22:56 Sickle Cells Cancelled 12/21/24 22:56 Target Cells Cancelled 12/21/24 22:56 Tear Drop Cells Cancelled 12/21/24 22:56 Ovalocytes Cancelled 12/21/24 22:56 Stomatocytes Cancelled 12/21/24 22:56 [place] Bodies Cancelled 12/21/24 22:56 Echinocytes Cancelled 12/21/24 22:56 Acanthocytes (Spur) Cancelled 12/21/24 22:56 Rouleaux Cancelled 12/21/24 22:56 RBC Agglutinates Cancelled 12/21/24 22:56 Schistocytes Cancelled 12/21/24 22:56 Sezary Cell Cancelled 12/21/24 22:56 Sodium 135 mmol/L (136-145) L 12/21/24 22:56 Potassium 4.3 mmol/L (3.5-5.1) 12/21/24 22:56 Chloride 100 mmol/L (98-107) 12/21/24 22:56 Carbon Dioxide 25 mmol/L (21-32) 12/21/24 22:56 Anion Gap 10 (3-11) 12/21/24 22:56 BUN 50 mg/dl (6-23) H 12/21/24 22:56 Creatinine 2.70 mg/dl (0.6-1.4) H 12/21/24 22:56 Est Cr Clr Drug Dosing Not Reportable 12/21/24 22:56 eGFR 25.05 12/21/24 22:56 BUN/Creatinine Ratio 18.5 (10-20) 12/21/24 22:56 Glucose 95 mg/dl (70-99(Fasting)) 12/21/24 22:56 Calcium 9.0 mg/dl (8.6-10.3) 12/21/24 22:56 Total Bilirubin 0.5 mg/dl (0.2-1.0) 12/21/24 22:56 AST 21 U/L (13-39) 12/21/24 23:31 ALT 16 U/L (7-52) 12/21/24 22:56 Alkaline Phosphatase 68 U/L (34-104) 12/21/24 22:56 Total Protein 8.1 gm/dl (6.0-8.3) 12/21/24 22:56 Albumin 3.7 gm/dl (3.4-5.0) 12/21/24 22:56 Globulin 4.4 gm/dl (2.5-4.0) H 12/21/24 22:56 Albumin/Globulin Ratio 0.8 (0.9-2) L 12/21/24 22:56 Lipase 24 U/L (11-82) 12/21/24 22:56 Blood Parasites ID Cancelled 12/21/24 22:56 Impressions Ankle X-Ray 12/21/24 22:08 Exam(s): XR LEFT ANKLE, 2 views EXAM: XR Left Ankle, 2 Views CLINICAL HISTORY: Reason for exam: ankle pain s/p fall. TECHNIQUE: Frontal and lateral views of the left ankle. COMPARISON: No relevant prior studies available. FINDINGS: Exam is limited due to patient positioning. Bones/joints: No gross fracture or dislocation. There are hypertrophic degenerative changes. There are calcaneal spurs. There is a pes planus deformity. Soft tissues: There is soft tissue swelling. IMPRESSION: Limited exam. Hypertrophic degenerative changes. If further evaluation is clinically necessary, consider correlation with CT scan and/or MRI.. Electronically signed by: eRza Butler MD 12/21/24 23:42 PM Knee X-Ray 12/21/24 22:08 Exam(s): XR LEFT KNEE, 3 views EXAM: XR Left Knee, 3 Views CLINICAL HISTORY: Reason for exam: knee pain s/p fall. TECHNIQUE: Three views of the left knee. COMPARISON: No relevant prior studies available. FINDINGS: Bones/joints: No acute fracture. No dislocation. There are mild hypertrophic degenerative changes. Soft tissues: Unremarkable. IMPRESSION: Mild hypertrophic degenerative changes. If further evaluation is clinically necessary, consider correlation with MRI. Electronically signed by: Reza Butler MD 12/21/24 23:52 PM Tibia/Fibula X-Ray 12/21/24 22:09 Exam(s): XR LEFT TIB/FIB, 2 views EXAM: XR Left Tibia and Fibula, 2 Views CLINICAL HISTORY: Reason for exam: ankle pain s/p fall. TECHNIQUE: Frontal and lateral views of the left tibia and fibula. COMPARISON: No relevant prior studies available. FINDINGS: Bones/joints: No acute fracture. No dislocation. There are hypertrophic degenerative changes. Soft tissues: There is soft tissue swelling. No radiopaque foreign body. IMPRESSION: Soft tissue swelling. Hypertrophic degenerative changes. If further evaluation is clinically necessary, consider correlation with MRI Electronically signed by: Reza Butler MD 12/21/24 23:[address] head: Within the limitation of motion artifacts no acute post-traumatic intracranial sequelae on CT head. if there is any clinical concern, follow-up CT with proper positioning is advised Microvascular white matter ischemic and senile changes. Left knee CT: Suboptimum evaluation possible due to motion artifact. Mild subcutaneous edema is noted adjacent to the knee joint- predominantly in the anterolateral aspect. Mild osteoarthritis of left knee joint is seen. Diagnostic Findings EKG as per my interpretation :Rate 60, NSR, normal axis, no ischemia (1) AMS (altered mental status) Altered mental status type: unspecified Qualified Code(s): R41.82 - Altered mental status, unspecified
[2024-12-22 02:12] LABS: Creatine Kinase 200.0 U/L (30-223)
--- NOTE | 2024-12-22 03:06 | CT Scan Report ---
EXAM: CT knee LT wo con CLINICAL HISTORY: swelling TECHNIQUE: Contiguous axial CT images of left knee were obtained without intravenous contrast. Coronal and sagittal reconstructions were likewise performed and indicated to increase the sensitivity for detecting clinically relevant pathology. CT scan was performed according to ALARA (as low as reasonably achievable). COMPARISON: None. FINDINGS: Suboptimum evaluation possible due to motion artifact. Mild subcutaneous edema is noted adjacent to the knee joint- predominantly in the anterolateral aspect. Mild osteoarthritis of left knee joint is seen. No acute fracture or dislocation. No destructive osseous lesion. The visualized muscles and tendons appear grossly unremarkable. No cortical destruction to suggest osteomyelitis. No abscess formation. There are no soft tissue masses. Normal subcutaneous adipose space. IMPRESSION: Suboptimum evaluation possible due to motion artifact. Mild subcutaneous edema is noted adjacent to the knee joint- predominantly in the anterolateral aspect. Mild osteoarthritis of left knee joint is seen. Electronically signed by Sebastian Rodriguez 12-22-2024 03:05 AM
[2024-12-22] MEDS: SODIUM CHLORIDE 0.9% 1,000 ML IV ONE ×2 (03:14→04:04)
--- NOTE | 2024-12-22 03:26 | XRay Report ---
EXAM: XR chest 1V portable CLINICAL HISTORY: arf TECHNIQUE: Radiograph of chest was acquired. COMPARISON: 04/19/2024 FINDINGS: Interval increase of blunting of left costophrenic angle. Ill defined haziness in bilateral lung avila- new finding Rest of the lungs are clear. Interval unchanged cardiomegaly Rest of the cardiomediastinal silhouette is within normal limits. No acute osseous abnormality. IMPRESSION: Interval increase of blunting of left costophrenic angle. Likely mild to moderate pleural effusion. Ill defined haziness in bilateral lung avila- new finding Interval unchanged cardiomegaly Electronically signed by Sebastian Rodriguez 12-22-2024 03:26 AM
--- NOTE | 2024-12-22 03:38 | CT Scan Report ---
EXAM: CT head/brain wo con CLINICAL HISTORY: Headache, trauma, critical. TECHNIQUE: Axial non-contrast CT scan of the brain was performed from the skull base to the high parietal region. One of the following dose reduction techniques were utilized for this exam: Automated exposure control, adjustment of the mA and/or kV according to patient size, use of iterative reconstruction. COMPARISON: 11/09/2024 CT. FINDINGS: Motion artifacts by the patient result in the distortion and blurring of the images. Brain Parenchyma: Accentuated periventricular hypodensities and patchy hypodensities are observed in the bilateral cerebral deep and subcortical white matter regions, which are nonspecific but may represent chronic microvascular ischemic changes in the white matter. No evidence of acute infarct, hemorrhage, or mass effect. Ventricular System: Prominent ventricular system and extra-axial CSF spaces, suggesting senile changes Subarachnoid Spaces: No evidence of subarachnoid hemorrhage or extra-axial fluid collections. Cerebellum and Brainstem: No masses, lesions, or areas of abnormal density. Orbits: Normal appearance of the globes, optic nerves, and extraocular muscles. No evidence of orbital masses or abnormal density. Sinuses: Clear paranasal sinuses. No evidence of sinusitis or mucosal thickening. Mastoid Air Cells: Clear mastoid air cells. No evidence of mastoiditis. Skull: Normal skull morphology. IMPRESSION: Within the limitation of motion artifacts no acute post-traumatic intracranial sequelae on CT head. if there is any clinical concern, follow-up CT with proper positioning is advised Microvascular white matter ischemic and senile changes. No significant interval change is observed compared to the previous one. Electronically signed by aRman Barkley 12-22-2024 03:36 AM
[2024-12-22] MEDS ORDERED: PROMETHAZINE 6.25 MG/50.25 ML BAG IV PRN (03:44)
[2024-12-22] MEDS: DOXYCYCLINE HYCLATE 100 MG in DEXTROSE 5% MINI-B 100 ML IV STA (04:06)
[2024-12-22] MEDS ORDERED: DEXTROSE 50% 50 ML SYRINGE IV PRN (04:08)
[2024-12-22] MEDS ORDERED: CARBOHYDRATES FOR HYPOGLYCEMIA PO PRN (04:08)
[2024-12-22] MEDS ORDERED: GLUCAGON FOR INJ 1 MG VIAL SQ PRN (04:08)
[2024-12-22] MEDS ORDERED: GLUCOSE 40% GEL 15 GM TUBE PO PRN (04:08)
[2024-12-22] MEDS ORDERED: GLUCOSE 10 TAB/TUBE PO PRN (04:08)
[2024-12-22 04:25] LABS: Appearance Urine Cloudy (Clear); Bacteria Urine Automated None Seen (None Seen); Epithelial Cell Urine Auto 0-2 /hpf (0-2); Glucose Urine UA Negative (Negative); RBC Urine Automated 0-2 /hpf (0-2); WBC Urine Automated >50 /hpf (0-5)
[2024-12-22] MEDS: INSULIN ASPART PER UNIT CHARGE SC SCH (04:28)
[2024-12-22 05:07] LABS: Hematocrit (blood only) 28.8 % (42.0-52.0); Hemoglobin 9.5 g/dl (14.0-18.0); Immature Granulocytes # (auto) 0.07 K/uL (0.01-0.20); Immature Granulocytes % (auto) 0.6 %; Mean Corpuscular Hemoglobin 31.1 pg (25.0-34.0); Mean Corpuscular Volume 94.4 fL (80.0-100.0); Platelet Count 95 K/uL (130-400); RDW Standard Deviation 49.1 fL (36.4-46.3); Red Blood Count 3.05 M/uL (4.70-6.10); White Blood Count 12.31 K/ul (4.8-10.8)
[2024-12-22 05:24] LABS: Anion Gap 6.0 (3-11); Blood Urea Nitrogen 50.0 mg/dl (6-23); Calcium 8.2 mg/dl (8.6-10.3); Carbon Dioxide 24.0 mmol/L (21-32); Chloride 105.0 mmol/L (98-107); Creatinine Clr Calc Pharmacy 39.4 ml/min; Glucose 94.0 mg/dl (70-99(Fasting)); Potassium 3.7 mmol/L (3.5-5.1); Sodium 135.0 mmol/L (136-145)
[2024-12-22] MEDS: LEVOTHYROXINE SODIUM 112 MCG TABLET PO SCH (08:48)
[2024-12-22] MEDS: SUCRALFATE 1 GM TAB PO SCH (08:48)
[2024-12-22] MEDS: ATORVASTATIN 20 MG TAB PO SCH (08:48)
[2024-12-22] MEDS: MULTIVITAMIN TAB PO SCH (08:48)
--- NOTE | 2024-12-22 12:05 | Psychiatric Consultation ---
Date of Consultation December 22, 2024 Impression / Recommendations Impression 69 y/o M h/o moderate ID, IED, MDD, JEAN, CAD/PVD, chronic diastolic HF, acute on chronic anemia, DMT2, hypothyroidism, chronic thrombocytopenia who presents with AMS after recent fall at his detention ([employer]) in the context of HESHAM and UTI. Psychiatry consulted for evaluation of psychotropic medications contributing to symptoms. Pt with ID, IED, MDD who has been trialed on many psychotropics, most recently seen by outpatient psychiatry on 12/02/24 and relatively stable on his regimen. No recent med changes to his psychotropics. Appears he has been dehydrated and routinely refuses water and likely led to his HESHAM, UTI and fall. Also has long standing neurological issues impacting gait and ambulation. No suspicion that his psychotropics contributed to his fall. Spoke to him and his care team assistant and he presents a stable mental status and does not appear acutely agitated, suicidal, or presenting other safety concerns. Recommend to restart home psychotropic medications and treat underlying HESHAM. Overall, I spent a total of 80 minutes with this case including review of chart records, nursing report, review of lab work, direct evaluation of the patient at bedside, counseling the patient, discussion of the patient with the hospitalist provider, discussion with the psychiatric liaison during clinical rounds, and documentation in the electronic health record. (1) Moderate intellectual disabilities: (2) Fall: (3) HESHAM (acute kidney injury): (4) UTI (urinary tract infection): (5) Acute pain of left knee: Plan 12/22/24: Resume home psychotropic medications May benefit from bedside sitter/caregiver Psych History Identifying Data 69 y/o M h/o moderate ID, IED, MDD, JEAN, CAD/PVD, chronic diastolic HF, acute on chronic anemia, DMT2, hypothyroidism, chronic thrombocytopenia who presents with AMS after recent fall at his detention ([employer]) in the context of HESHAM and UTI. Psychiatry consulted for evaluation of psychotropic medications contributing to symptoms. Chief Complaint AMS History of Present Illness Patient seen with his care team assistant at bedside. 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 AO to hospital and situation. Presenting some slurred speech and endorses burning and itching in his urogenital area. Denies pain. Reports recent fall with dizziness preceding. Caregiver notes he often refuses water because he prefers it to be flavored and has been a long standing problem. Pt asking for breakfast. Denies SI, HI. 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 Has chronic insomnia. Outpatient psychiatry f/u on 12/02/24 and documentation reviewed: Currently on Quetiapine 50mg TID, Venlafaxine XR 112.5 mg daily, risperidone 0.5 mg twice daily, aripiprazole 15 mg daily, bupropion XL 300 mg daily, buspirone 15 mg twice daily, Depakote ER 1500 mg nightly, doxepin 10 mg nightly. Patient has a history of failing 3+ antipsychotic monotherapy's. History of chronic insomnia. When seen at his last visit he noted a positive mood and has intermittent aggression which appears to be his baseline. Poor sleep hygiene. No other concerns and has been stable. Allergies Allergy/AdvReac Type Severity Reaction Status Date / Time terbinafine Allergy Mild RASH ON Verified 11/09/24 12:49 ARM? Penicillins Allergy Unknown Unknown Unverified 11/09/24 12:49 Carbapenems Allergy Unknown Verified 12/22/24 01:37 Cephalosporins Allergy Unknown Verified 12/22/24 01:37 BETALACTAMS Allergy Unknown Uncoded 12/22/24 01:39 Home Medications Medication Instructions Recorded Confirmed Type aripiprazole 15 mg tablet 15 mg PO QAM 05/13/24 12/22/24 History aspirin 81 mg chewable tablet 81 mg PO QAM 05/13/24 12/22/24 History bupropion HCl 300 mg 24 hr tablet, 300 mg PO QAM 05/13/24 12/22/24 History extended release buspirone 15 mg tablet 15 mg PO BID 05/13/24 12/22/24 History carvedilol 25 mg tablet (Coreg) 25 mg PO BID 05/13/24 12/22/24 History divalproex 500 mg tablet,extended 500 mg PO QPM 05/13/24 12/22/24 History release 24 hr doxepin 10 mg capsule 10 mg PO HS 05/13/24 12/22/24 History lisinopril 10 mg tablet 10 mg PO QAM 05/13/24 12/22/24 History multivitamin with folic acid 400 1 tab PO QAM 05/13/24 12/22/24 History mcg tablet (Daily-Ezekiel (with folic acid)) risperidone 0.25 mg tablet 0.25 mg PO QAM 05/13/24 12/22/24 History sennosides 8.6 mg tablet (senna) 8.6 mg PO BID 05/13/24 12/22/24 History sucralfate 1 gram tablet 1 g PO QAM 05/13/24 12/22/24 History venlafaxine 37.5 mg 37.5 mg PO QAM 05/13/24 12/22/24 History capsule,extended release 24 hr venlafaxine 75 mg capsule,extended 75 mg PO QAM 05/13/24 12/22/24 History release 24 hr atorvastatin 20 mg tablet 20 mg PO QAM 05/23/24 12/22/24 History omeprazole 40 mg capsule,delayed 40 mg PO DAILY 05/23/24 12/22/24 History release Incentive Spirometer #1 ea 05/27/24 Rx amlodipine 5 mg tablet 5 mg PO QAM 12/22/24 12/22/24 History levothyroxine 112 mcg tablet 112 mcg PO DAILYBB 12/22/24 12/22/24 History quetiapine 50 mg tablet 50 mg PO TID 12/22/24 12/22/24 History spironolactone 25 mg tablet 25 mg PO QAM 12/22/24 12/22/24 History Patient History Medical History Vocal cord paralysis, unilateral complete GERD (gastroesophageal reflux disease) Myocardial infarction Remote hx per records > medically managed Coronary artery disease Thrombocytopenia Chronic thrombocytopenia, baseline platelets low 100s per chart review Obesity Cerebral palsy Moderate intellectual disabilities sister/POA -ASHLEY IRENE [phone]-[email or web address] [email or web address] 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 Wolff H/O tooth extraction History of esophagogastroduodenoscopy (EGD) History of colonoscopy EGD/colonoscopy (12/07/19): MAC sedation at [facility] History of bronchoscopy Flexible bronchoscopy with BAL (02/04/18): Grade view 1, Elective glidescope #4, ETT 8.5 at [facility] (done for aspiration PNA) Family History Other No significant family history Social History (System 11/09/24 @ 12:49 by Vianey Barnard) Smoking Status: Unknown if ever smoked Second Hand Exposure: No; Do You Dip or Chew Tobacco: No; Hx Alcohol Use: No Hx Substance Use: No Preferred Language: Pashto Communication Ability: Effective Communication Ability Comment: PT IS INTELLECTUALLY IMPAIRED [employer] P[employer] Covering Supervisor Required: No Beliefs That Will Affect Care: None marital status: Single Current Living Situation: Other Current Living Situation Comment: [employer] current occupational status: disabled Feels Safe at Home: Yes Assistive Devices: Oxygen - at Night, Walker and Wheelchair Physical Exam Mental Examination: Appearance: Disheveled Eye Contact: Fleeting Contact Motor Behavior: Restless (itching genital area) Speech: Slurred Mood: Euthymic and Calm Affect: Congruent and Constricted Thought Process: Intact Thought Content: Poverty of Content Hallucinations: None Insight: Poor Judgement: Poor Vital Signs (Past 24 Hours): Last Vital Signs Temp 37.0 C 12/21/24 22:08 Pulse 68 12/22/24 09:23 Resp 16 12/22/24 09:23 BP 126/58 L 12/22/24 09:23 Pulse Ox 96 12/22/24 09:23 O2 Del Method Nasal Cannula 12/22/24 09:23 O2 Flow Rate 2 12/22/24 09:23 Results & Data (PSY) Medications Administered Amlodipine Besylate (Amlodipine Besylate 5 Mg Tab) 5 mg PO QAM SUPRIYA Stop: 01/21/25 08:59 Last Admin: 12/22/24 08:48 Dose: 5 mg Documented By: ANT Atorvastatin Calcium (Atorvastatin 20 Mg Tab) 20 mg PO QAM SUPRIYA Stop: 01/21/25 08:59 Last Admin: 12/22/24 08:48 Dose: 20 mg Documented By: ANT Carvedilol (Carvedilol 12.5 Mg Tab) 12.5 mg PO BID SUPRIYA Stop: 01/21/25 08:59 Last Admin: 12/22/24 08:48 Dose: 12.5 mg Documented By: ANT Sodium Chloride (Nss) 1,000 mls @ 75 mls/hr IV .[id number] ONE Stop: 12/22/24 17:19 Last Admin: 12/22/24 04:04 Dose: 75 mls/hr Documented By: DEREK Insulin Aspart (Insulin Aspart Per Unit Charge) 0 units SC ACHS [facility] Stop: 01/21/25 04:07 Last Admin: 12/22/24 04:28 Dose: Not Given Documented By: DEREK Levothyroxine Sodium (Levothyroxine Sodium 112 Mcg Tablet) 112 mcg PO DAILYBB [facility] Stop: 01/21/25 06:29 Last Admin: 12/22/24 08:48 Dose: 112 mcg Documented By: ANT [facility]ivitamins ([facility]ivitamin Tab) [facility] Stop: 01/21/25 08:59 Last Admin: 12/22/24 08:48 Dose: 1 tab Documented By: ANT Pantoprazole Sodium (Pantoprazole 40 Mg Tab) 40 mg PO DAILY [facility] Stop: 01/21/25 08:59 Last Admin: 12/22/24 08:48 Dose: 40 mg Documented By: ANT Sucralfate (Sucralfate 1 Gm Tab) 1 gm PO QAM [facility] Stop: 01/21/25 08:59 Last Admin: 12/22/24 08:48 Dose: 1 gm Documented By: ANT [place] [address] IN/OBS CONSULT LVL 5,80M Patient Type New History Comprehensive Exam Comprehensive Medical Decision Making High Complexity Diagnoses Moderate intellectual disabilities F71 Fall W19.XXXA HESHAM (acute kidney injury) N17.9 UTI (urinary tract infection) N39.0 Acute pain of left knee M25.562
--- NOTE | 2024-12-22 14:22 | Communication Note ---
Date of Service: December 22, 2024 Patient seen and examined at bedside. He is alert and oriented to self and place; mentation is at baseline. Alfred catheter is in place draining clear urine. On physical examination; Constitutional: Alert oriented x self, place; not in distress. Respiratory: Bilateral vesicular breath sound Cardiovascular: RRR, no murmur, no edema Vessels: no JVD or carotid bruit Chest: normal inspection of chest Abdomen: normal bowel sounds, soft, nontender, no hepatosplenomegaly Musculoskeletal: no cyanosis or clubbing, extremities motor strength 5/5 Skin: no rashes, warm and dry normal turgor Neurologic: PERRL, EOMI, accommodation nl, no face palsy, no dysarthria CN's II- XI intact bilaterally and moves all extremities Psychiatric: A+Ox3, euthymic affect Assessment/plan Acute metabolic encephalopathy Mechanical fall HESHAM Patient presented to the hospital with syncopal episode Found to have HESHAM and low blood pressure Being given IV fluids with improvement in creatinine Continue to hold antihypertensives for now and allow blood pressure to rise Avoid nephrotoxic agent Psychiatry evaluated the patient; no changes in medication recommended PT OT pending Please note the above document was generated using voice recognition software. It may contain grammatical, syntax or spelling errors. Any formal questions or concerns about the content, text or information contained within the body of this dictation should be directly addressed to the provider for clarification
[2024-12-22] MEDS: DOXYCYCLINE HYCLATE 100 MG CAP PO SCH (20:46)
[2024-12-22] MEDS: ACETAMINOPHEN 500 MG TAB PO PRN (20:59)
[2024-12-23 07:26] LABS: Anion Gap 6.0 (3-11); Blood Urea Nitrogen 25.0 mg/dl (6-23); Calcium 9.0 mg/dl (8.6-10.3); Carbon Dioxide 24.0 mmol/L (21-32); Chloride 106.0 mmol/L (98-107); Creatinine Clr Calc Pharmacy 65.1 ml/min; Glucose 110.0 mg/dl (70-99(Fasting)); Potassium 4.5 mmol/L (3.5-5.1); Sodium 136.0 mmol/L (136-145)
[2024-12-23 08:35] VITALS: PULSE 79; RESP 19; TEMP 98.4; O2SAT 91
[2024-12-23 10:05] VITALS: BP 156/80
--- NOTE | 2024-12-24 05:57 | Electrocardiogram Report ---
Test Reason : Blood Pressure : */* mmHG Vent. Rate : 61 BPM Atrial Rate : 61 BPM P-R Int : 206 ms QRS Dur : 84 ms QT Int : 416 ms P-R-T Axes : 79 62 47 degrees QTcB Int : 418 ms Normal sinus rhythm Anterior infarct (cited on or before 10-Jun-2010) Abnormal ECG When compared with ECG of 20-Jun-2024 14:33, Criteria for Inferior infarct are no longer Present Confirmed by Cheng Joshua ([id number]) on 12/24/2024 5:56:47 AM Referred By: REFERRED SELF Confirmed By: Cheng Joshua
--- NOTE | 2024-12-27 15:40 | Discharge Summary ---
Date of Service December 23, 2024 Admission HPI Per Admitting Provider History obtained from patient, family, caregiver, and records. Limited history from patient secondary to lethargy. Medical history significant for chronic diastolic heart failure secondary to ischemic cardiomyopathy (EF 55-60%, TTE 2023), CAD as per records, hypertension, hyperlipidemia, PVD, DM2 diet-controlled, CRI (baseline creatinine 1.3), chronic anemia (baseline hemoglobin 10-11), chronic thrombocytopenia, history HBV/cholelithiasis/hepatic steatosis as per records, history of spina bifida, anxiety/mood disorder, intermittent explosive disorder, borderline personality disorder, aspiration risk, intellectual impairment. Last confinement May 2024 for respiratory failure. Patient fell at [facility] early a.m. yesterday. Bleeding left knee wound noted. Patient seen at PCPs office yesterday. Outpatient x-ray requested. Topical antibiotic prescribed for open left knee wound. Patient had an unwitnessed fall at facility last night. Patient thinks he may have passed out resulting in head trauma. Achy headache symptoms. Patient weaker than usual as per caregivers. Patient denies chest pain, cough, SOB, abdominal pain, flank pain. Left knee wound bleeding more as per staff. Patient brought to ER for evaluation. Medical History as above Surgical History : Dental surgery Family History : Diabetes, heart disease Personal/Social history : Non-smoker, no EtOH intake, [facility] resident Admission Exam Per Admitting Provider GENERAL: Lethargic, no respiratory distress, obese SKIN: Pallor, warm HEENT: Alopecia, pale palpebral conjunctivae, no ptosis, moist buccal mucosa, partially edentulous, nasal cannula in place NECK : Supple, short neck, no tenderness CHEST : Decreased breath sounds , no tenderness HEART : RRR, no obvious murmurs ABDOMEN: Some distention, no tenderness EXTREMITIES : Bilateral LE swelling, dressing over bleeding open right knee wound, minimal tenderness around right knee area NEUROLOGIC : Lethargic, no facial asymmetry, gait and stance not assessed Principal Diagnosis Acute metabolic encephalopathy Mechanical fall HESHAM Discharge Exam Constitutional: Alert oriented x self, place; not in distress. Respiratory: Bilateral vesicular breath sound Cardiovascular: RRR, no murmur, no edema Vessels: no JVD or carotid bruit Chest: normal inspection of chest Abdomen: normal bowel sounds, soft, nontender, no hepatosplenomegaly Musculoskeletal: no cyanosis or clubbing, extremities motor strength 5/5 Skin: no rashes, warm and dry normal turgor Neurologic: PERRL, EOMI, accommodation nl, no face palsy, no dysarthria CN's II- XI intact bilaterally and moves all extremities Psychiatric: A+Ox3, euthymic affect Discharge Data Allergies Allergy/AdvReac Type Severity Reaction Status Date / Time terbinafine Allergy Mild RASH ON Verified 11/09/24 12:49 ARM? Penicillins Allergy Unknown Unknown Unverified 11/09/24 12:49 Carbapenems Allergy Unknown Verified 12/22/24 01:37 Cephalosporins Allergy Unknown Verified 12/22/24 01:37 BETALACTAMS Allergy Unknown Uncoded 12/22/24 01:39 Consultations 12/22/24 01:13 ED Decision to Admit Stat 12/22/24 03:52 Consult Psychiatry Routine Ordered Studies 12/22/24 01:57 CT head/brain wo con Stat CT knee LT wo con Stat Hospital Course (1) Fall: (2) Acute kidney injury superimposed on chronic kidney disease: Plan Assessment/plan Acute metabolic encephalopathy Mechanical fall HESHAM Patient presented to the hospital with syncopal episode Found to have HESHAM and low blood pressure Patient was admitted to medical floor; was started on IV fluids with improvement in kidney function. Psychiatry was consulted for comanagement; they recommended to continue current medicationno changes were made. Patient mentation was back to baseline. Patient was discharged back to [facility]. Please note the above document was generated using voice recognition software. It may contain grammatical, syntax or spelling errors. Any formal questions or concerns about the content, text or information contained within the body of this dictation should be directly addressed to the provider for clarification Total Time Total Time Spent Total Time Spent (In Minutes): 45 Total Time Includes: Examination of the Patient, Discharge Planning, Medication Reconciliation, Communication With Other Providers and Other Discharge Plan Discharge Items Patient Disposition: Home - Self-Care Reason For Visit: AMS, ARF Discharge Diagnosis: Mechanical Fall Acute Kidney Failure Condition on Discharge: Fair Activity: Resume your previous activity Non-emergency contact: Primary Care Provider Call non-emergency contact if: you have any medication questions and your symptoms worsen Follow-up/Referrals: Tim Swenson, DO [Primary Care Provider] - (Date & Time 12/30/2024 4:00 PM Provider: Tim Swenson DO [facility] ) Diet: Regular Addtl Attending Provider Instructions: You were admitted to the hospital due to fall and acute kidney injury. You were treated with IV fluids for hydration with improvement in your kidney function. Please hold off on taking lisinopril and spironolactone until you are seen by your primary care doctor and repeat your kidney function/electrolytes. You are prescribed doxycycline to be taken twice a day for 5 days Pending Studies at Discharge: No Stand-Alone Forms: [facility], Smoking Cessation Medications and DC Order Prescriptions: New doxycycline hyclate 100 mg Capsule 100 mg PO BID 5 Days Qty: 10 0RF Continued sennosides [senna] 8.6 mg tablet 8.6 mg PO BID venlafaxine 37.5 mg capsule,extended release 24hr 37.5 mg PO QAM Rx Instructions: Take 37.5mg w/ 75mg to equal 112.5 QAM venlafaxine 75 mg capsule,extended release 24hr 75 mg PO QAM Rx Instructions: Take 37.5mg w/ 75mg to equal 112.5 QAM sucralfate 1 gram tablet 1 g PO QAM risperidone 0.25 mg tablet 0.25 mg PO QAM doxepin 10 mg capsule 10 mg PO HS divalproex 500 mg tablet extended release 24 hr 500 mg PO QPM aspirin 81 mg tablet,chewable 81 mg PO QAM buspirone 15 mg tablet 15 mg PO BID aripiprazole 15 mg tablet 15 mg PO QAM bupropion HCl 300 mg tablet extended release 24 hr 300 mg PO QAM multivitamin with folic acid [Daily-Ezekiel (with folic acid)] 400 mcg tablet 1 tab PO QAM carvedilol [Coreg] 25 mg Tablet 25 mg PO BID Rx Instructions: must administer with a meal/food atorvastatin 20 mg tablet 20 mg PO QAM omeprazole 40 mg capsule,delayed release(DR/EC) 40 mg PO DAILY (DME) Incentive Spirometer Misc See Rx Instructions .Route Qty: 1 0RF Rx Instructions: As directed amlodipine 5 mg tablet 5 mg PO QAM quetiapine 50 mg tablet 50 mg PO TID levothyroxine 112 mcg tablet 112 mcg PO DAILYBB Held lisinopril 10 mg tablet 10 mg PO QAM Hold Instructions: Resume on 12/29/24. spironolactone 25 mg tablet 25 mg PO QAM Hold Instructions: Resume on 12/29/24. Discharge Orders: Discharge Order (Routine); Ordered 12/23/24 Ordered By: Yobany Emanuel Admission Data Admit Date/Time: 12/22/24 03:41 Attending Provider: Yobany Emanuel Admit Provider: Solomon Goodwin Primary Care Provider: Tim Swenson Other Providers: Solomon Goodwin; Dae Gómez Other Interventions: Discharge Summary Assessment (RN) Last Done: 12/23/24 10:04
== END 2024-12-23 10:33 | disposition home or self-care (01) ==
LOC: ED 21:53 → INTOOBSV 12-22 03:41 → EDINP 12-22 03:41 → 2N 12-22 04:08
DX: N17.9 Acute kidney failure, unspecified; F79 Unspecified intellectual disabilities; G93.40 Encephalopathy, unspecified; Z79.82 Long term (current) use of aspirin; W19.XXXA Unspecified fall, initial encounter; E03.9 Hypothyroidism, unspecified; E11.9 Type 2 diabetes mellitus without complications; Z88.8 Allergy status to other drugs, medicaments and biological substances; S80.212A Abrasion, left knee, initial encounter; Z88.1 Allergy status to other antibiotic agents; M25.572 Pain in left ankle and joints of left foot; Z79.899 Other long term (current) drug therapy; I50.32 Chronic diastolic (congestive) heart failure; Z88.0 Allergy status to penicillin; R41.82 Altered mental status, unspecified; Z79.890 Hormone replacement therapy; D69.6 Thrombocytopenia, unspecified; I25.10 Atherosclerotic heart disease of native coronary artery without angina pectoris; E78.5 Hyperlipidemia, unspecified; N18.9 Chronic kidney disease, unspecified; N39.0 Urinary tract infection, site not specified; I12.9 Hypertensive chronic kidney disease with stage 1 through stage 4 chronic kidney disease, or unspecified chronic kidney disease